=== PATIENT | female | born 1950 | race Caucasian/White ===

== ENCOUNTER 2019-06-04 01:09 | Day surgery (SDC) | payer MEDICARE, MEDICAID, SELFPAY ==
[2019-05-30 12:42] VITALS: BMI 43.5
[2019-06-04 10:15] VITALS: BP 144/70; PULSE 67; RESP 20; TEMP 36.6; O2SAT 100
--- NOTE | 2019-06-04 10:22 | P.HP_ITS ---
History of Present Illness History of Present Illness Consent: Risks, benefits, and alternatives have been discussed and questions answered. Patient agrees to proceed with procedure. Chief complaint: Gastroparesis Narrative: Kelley Rodriguez is a 69 year old female with suffering from early satiety and epigastric pain for the past several months. She also has been nauseated with frequent episodes of vomiting. She be given a prescription for Reglan on an emergency room visit a month or 2 ago and this seemed to help her. A gastric emptying scan was done 2 days ago and was slightly abnormal. She has not lost weight. She also suffers from left upper quadrant pain and was found on hospitalization over the weekend to have a splenic infarct [facility] Family History Family History Sibling Family history of alcoholism Social History Social History Smoking status: Never smoker Second hand tobacco smoke exposure: No Alcohol intake: never Meds Home Medications and Allergies Home Medications Medication Instructions Recorded Confirmed Type B complex-vitamin C-folic acid 0.8 mg PO DAILY 05/30/19 05/30/19 History [Gemini-Maryam] allopurinol [Zyloprim] 100 mg PO DAILY 05/30/19 05/30/19 History amlodipine [Norvasc] 10 mg PO DAILY 05/30/19 05/30/19 History bupropion HCl [Wellbutrin SR] 150 mg PO DAILY 05/30/19 05/30/19 History calcium acetate(phosphat bind) 667 mg PO TID 05/30/19 05/30/19 History carvedilol [Coreg] 25 mg PO DAILY 05/30/19 05/30/19 History cholecalciferol (vitamin D3) 5,000 unit PO BID 05/30/19 05/30/19 History [Vitamin D3] ergocalciferol (vitamin D2) 1,250 unit PO DAILY 05/30/19 05/30/19 History [Vitamin D2] furosemide 80 mg PO DAILY 05/30/19 05/30/19 History gabapentin 100 mg PO BID 05/30/19 05/30/19 History insulin degludec [Tresiba 600 unit SUBCUT DAILY 05/30/19 05/30/19 History FlexTouch U-200] insulin lispro [Humalog U-100 0 sliding scale dose SUBCUT TID 05/30/19 05/30/19 History Insulin] losartan [Cozaar] 100 mg PO 3XW 05/30/19 05/30/19 History mirtazapine [Remeron] 15 mg PO HS 05/30/19 05/30/19 History ondansetron HCl [Zofran] 4 mg PO PRN PRN 05/30/19 05/30/19 History Allergies Allergy/AdvReac Type Severity Reaction Status Date / Time No Known Allergies Allergy Mild Verified 06/04/19 10:33 Vital Signs Vital Signs - 24 hr 06/04/19 10:15 Temperature 36.6 C Pulse Rate 67 Respiratory Rate 20 Blood Pressure 144/70 H Pulse Oximetry 100 Exam Const: General: alert Orientation/consciousness: patient oriented x3 Resp: Auscultation: clear to auscultation bilaterally Cardio: Rhythm: regular rhythm GI: GI Palp: Yes Soft to palpation and No Tenderness to palpation present (GI) Neuro: General: patient oriented x3 Assessment and Plan Assessment and plan (1) Epigastric pain: Code(s): R10.13 - Epigastric pain Status: Acute Assessment and Plan: EGD with possible biopsy or dilatation or cautery.
[2019-06-04 10:33] VITALS: BMI 48.7
--- NOTE | 2019-06-04 10:34 | WPDANESEPPF ---
Anes - Initial Pre Proc Eval Procedure: Operation Date: 06/04/19 10:30 Proposed Procedures p Esophagogastroduodenoscopy - Lito Jimenez MD Date/Time: 06/04/19 10:34 Surgeon: Lito Jimenez MD Pre Op Diagnosis: Gastroparesis Patient Data Age: 69 Gender: F Height: 5 ft 1 in Weight: 104.5 kg Last Vital Signs Temp 97.8 F 06/04/19 10:15 Pulse 67 06/04/19 10:15 Resp 20 06/04/19 10:15 BP 144/70 H 06/04/19 10:15 Pulse Ox 100 06/04/19 10:15 Allergies Allergy/AdvReac Type Severity Reaction Status Date / Time No Known Allergies Allergy Mild Verified 06/04/19 10:33 Home Medications Medication Instructions Recorded Confirmed Type B complex-vitamin C-folic acid 0.8 mg PO DAILY 05/30/19 05/30/19 History [Gemini-Maryam] allopurinol [Zyloprim] 100 mg PO DAILY 05/30/19 05/30/19 History amlodipine [Norvasc] 10 mg PO DAILY 05/30/19 05/30/19 History bupropion HCl [Wellbutrin SR] 150 mg PO DAILY 05/30/19 05/30/19 History calcium acetate(phosphat bind) 667 mg PO TID 05/30/19 05/30/19 History carvedilol [Coreg] 25 mg PO DAILY 05/30/19 05/30/19 History cholecalciferol (vitamin D3) 5,000 unit PO BID 05/30/19 05/30/19 History [Vitamin D3] ergocalciferol (vitamin D2) 1,250 unit PO DAILY 05/30/19 05/30/19 History [Vitamin D2] furosemide 80 mg PO DAILY 05/30/19 05/30/19 History gabapentin 100 mg PO BID 05/30/19 05/30/19 History insulin degludec [Tresiba 600 unit SUBCUT DAILY 05/30/19 05/30/19 History FlexTouch U-200] insulin lispro [Humalog U-100 0 sliding scale dose SUBCUT TID 05/30/19 05/30/19 History Insulin] losartan [Cozaar] 100 mg PO 3XW 05/30/19 05/30/19 History mirtazapine [Remeron] 15 mg PO HS 05/30/19 05/30/19 History ondansetron HCl [Zofran] 4 mg PO PRN PRN 05/30/19 05/30/19 History Patient hx anesthesia problems: none Family hx anesthesia problems: none [facility] Past Medical History Medical History (Updated 06/04/19 @ 10:40 by Berto Giraldo MD) CVA (cerebral vascular accident) Diabetes End stage renal disease on hemo and peritoneal dialysis GERD (gastroesophageal reflux disease) Hyperlipidemia Hypertension Morbid obesity Peripheral neuropathy Family History Family History Sibling Family history of alcoholism Social History Social History Smoking status: Never smoker Second hand tobacco smoke exposure: No Alcohol intake: never Anes - Eval Final PreProcedure Day of Procedure 06/04/19 10:34 Patient weight: morbidly obese Heart: regular rate and rhythm Lungs: clear to auscultation Airway: Mallampati scale class III Neurological: alert and oriented Last oral intake: >/= 8 hours ASA classification: IV Emergent: no Anesthetic plan: proceed Anesthesia type and monitoring: general GIVS and standard monitoring Informed Consent: The patient's anesthetic plan and its attendant risks and benefits were discussed with the patient/family/POA. Questions were solicited and answers provided to the satisfaction of the patient/family/POA.
[2019-06-04] MEDS: SODIUM CHLORIDE 0.9% IV 500 ML 10 ML IV CONT (10:42)
[2019-06-04 10:46] LABS: Glucose Point of Care 166 (65-105)
[2019-06-04 10:57] VITALS: BP 115/39; PULSE 62; RESP 24; O2SAT 94
[2019-06-04 11:07] VITALS: BP 139/57; PULSE 64; RESP 15; O2SAT 100
[2019-06-04 11:17] VITALS: BP 139/57; PULSE 67; RESP 17; O2SAT 95
== END 2019-06-04 11:35 | disposition home or self-care (01) ==
PROVIDERS: PCP Internal Medicine; Visit Provider Internal Medicine Gastroenterology
PROC: 0DJ08ZZ Inspection of Upper Intestinal Tract, Via Natural or Artificial Opening Endoscopic (ICD-10-PCS; CPT 43235; principal; 2019-06-04 10:30)
DX: K21.9 Gastro-esophageal reflux disease without esophagitis (principal); K29.70 Gastritis, unspecified, without bleeding; R11.2 Nausea with vomiting, unspecified; R68.81 Early satiety; I13.11 Hypertensive heart and chronic kidney disease without heart failure, with stage 5 chronic kidney disease, or end stage renal disease; E78.5 Hyperlipidemia, unspecified; N18.6 End stage renal disease; E11.22 Type 2 diabetes mellitus with diabetic chronic kidney disease; E11.40 Type 2 diabetes mellitus with diabetic neuropathy, unspecified; Z86.73 Personal history of transient ischemic attack (TIA), and cerebral infarction without residual deficits; Z79.4 Long term (current) use of insulin; Z99.2 Dependence on renal dialysis; E66.01 Morbid (severe) obesity due to excess calories; Z68.42 Body mass index [BMI] 45.0-49.9, adult
CPT/HCPCS: 43239; 87081; J2704; J7040

== ENCOUNTER 2019-07-04 14:01 | Inpatient (IN) | payer MEDICARE, BC, SELFPAY ==
--- NOTE | ~2019-07-04 | XR_ITS ---
XR chest 1V portable 07/04/2019 15:10 Indication: Fever, abdominal pain and nausea Procedure: AP view of the chest Comparison: No prior studies for comparison. Findings: Cardiomegaly. No focal air space disease, pulmonary edema, pleural effusion or suspected pn eumothorax. No acute osseous abnormality. Impression: 1: No acute cardiopulmonary disease. Reviewed, dictated and finalized at location A. Impression: 1: No acute cardiopulmonary disease.
--- NOTE | ~2019-07-04 | CT_ITS ---
EXAMINATION: CT abdomen pelvis w con EXAM DATE: 07/05/2019 08:40 INDICATION: No mass is seen on noncontrast study. TECHNIQUE: Spiral CT of the abdomen and pelvis was performed following intravenous injection of 100 m L Omnipaque 350. Axial, coronal and sagittal images were reviewed. The dose-length product (DLP) fo r this examination was 1558.28 mGy-cm. The exposure was tailored according to patient size (auto mA exposure control), and iterative reconstruction (ASIR) was used as additional dose reduction techniqu e. Comparison is made to prior examination from 07/04/2019. FINDINGS: Small to moderate amount of free peritoneal fluid, with small foci of gas most likely perit wall dialysis related, catheter is identified. There are regions of linear and wedge-shaped low-dens ity within the spleen, most likely splenic infarctions. No history of trauma was provided to suggest lacerations, and only no fluid identified around the spleen. There are similar-appearing peripheral s mall low density regions within the liver which could also be infarctions given the splenic findings (these do not appear particularly masslike, somewhat geographic linear in shape). Adrenal glands, pancreas are unremarkable. Celiac, superior mesenteric, renal arteries enhance as exp ected, and no splenic or portal venous thrombosis identified. Gallbladder is unremarkable. No biliar y obstruction. Portal and splenic veins are patent. Kidneys enhance symmetrically. There is no hyd ronephrosis. The uterus is not identified and has likely been surgically resected. The bladder is unremarkable. There is no retroperitoneal or pelvic lymphadenopathy. The appendix is normal. The stomach and small bowel are unremarkable. There is expected amount of c olonic stool. No free intraperitoneal gas. There is cardiomegaly and there is linear bibasilar airspace disease consistent with atelectasis. There are no osteoblastic or osteolytic lesions identi fied. IMPRESSION: 1. Linear and geographic shaped scattered liver and splenic hypodense regions, appearance consistent with acute or subacute infarctions. No thrombus identified within the visualized enhanced vessels. 2. Peritoneal fluid and air likely from dialysis. 3. Linear by basilar atelectasis. 4. Cardiomegaly. Reviewed, dictated and finalized at location A. IMPRESSION: 1. Linear and geographic shaped scattered liver and splenic hypodense regions, appearance consistent with acute or subacute infarctions. No thrombus identifi ed within the visualized enhanced vessels. 2. Peritoneal fluid and air likely from dialysis. 3. Linear by basilar atelectasis. 4. Cardiomegaly.
--- NOTE | ~2019-07-04 | CT_ITS ---
EXAMINATION: CT abdomen pelvis wo con DATE: 07/04/2019 15:01 INDICATION: Severe abdominal pain. TECHNIQUE: Computed tomography (CT) of the abdomen and pelvis was performed without intravenous contr ast. The dose-length product was 1628.56 mGy-cm. Automated exposure control and iterative reconstruct ion technique were employed. COMPARISON: None. FINDINGS: There are groundglass opacities in the lung bases. Cardiomegaly. No significant pleural or pericardial effusion. There is free fluid in the abdomen and pelvis there is a catheter extending int o the pelvis, likely peritoneal dialysis catheter. There is free air, likely secondary to the cathete r. Punctate focus of gas in the bladder lumen, likely from recent instrumentation. Colonic diverticul osis without evidence for diverticulitis. There is extensive arterial sclerosis. There are multiple hypodense masses of the liver, largest in the right hepatic lobe measuring 4.6 x 1 .7 cm greatest axial dimension. The spleen, pancreas, adrenal glands and kidneys are unremarkable. No bowel obstruction. No loculated fluid collection to suggest abscess. Moderate-severe lumbar spondylo sis. IMPRESSION: 1. Free intraperitoneal air is noted, likely secondary to peritoneal dialysis catheter. Bowel perfora tion cannot entirely excluded, although no focal bowel abnormalities are identified. Free fluid noted in the abdomen and pelvis, likely related to peritoneal dialysis. 2: Multiple liver masses. Recommend correlation with contrast-enhanced CT or MRI to exclude enhancing masses. Consider metastatic disease. Infection is another consideration. Reviewed, dictated and finalized at location A. IMPRESSION: 1. Free intraperitoneal air is noted, likely secondary to peritoneal dialysis c atheter. Bowel perforation cannot entirely excluded, although no focal bowel ab normalities are identified. Free fluid noted in the abdomen and pelvis, likely related to peritoneal dialysis. 2: Multiple liver masses. Recommend correlation with contrast-enhanced CT or MR I to exclude enhancing masses. Consider metastatic disease. Infection is anothe r consideration.
[2019-07-04 14:03] VITALS: BP 104/39; PULSE 83; RESP 22; TEMP 38.7; O2SAT 96
--- NOTE | 2019-07-04 14:26 | ED.ABDPAIN ---
HPI - Abdominal Pain General Chief Complaint: Abdominal Pain Stated Complaint: ABD PAIN Time Seen by Provider: 07/04/19 14:10 History of Present Illness HPI narrative: Patient presents to the ER today for right-sided lower abdominal pain. This started a couple days ago, and is not the same as when she had the colitis a couple weeks ago. The fever just started today. She has no vomiting nausea or diarrhea. She has no cough. She does peritoneal dialysis every day all day. Her supervisor estimator and drafter is Dr. Mosley. The pain radiates up to the waistline and a little bit over to the middle. The pain is a 5 or 6 on a scale of 1-10. It hurts worse with palpitation. She also complains of having a urinary tract infection. She says she knows this because of the odor of her urine. She denies frequency or burning with urination. Her lower legs are red but nontender. She says that they are always like that and swollen. She does not suspect that they are infected. She has been following COVID precautions and has not left her house in weeks. She has no problem with memory or mobility. MD elicited complaint: abdominal pain Pertinent past history: other (recent colitis, and was sent home on flagyl and levoquin. She finished the entire course.) Onset (ago): day(s) Pain Consistency: constant Location: RLQ Severity: moderate Quality: aching Radiation: suprapubic and R flank Exacerbating factors: movement Relieving factors: nothing Context: confirms recent antibiotic use Associated symptoms: denies other symptoms and fever Related Data Patient : No Home Medications Medication Instructions Recorded Confirmed Gemini-Maryam 0.8 mg PO DAILY 05/30/19 05/30/19 Tresiba FlexTouch U-200 600 unit SUBCUT DAILY 05/30/19 05/30/19 allopurinol [Zyloprim] 100 mg PO DAILY 05/30/19 05/30/19 amlodipine [Norvasc] 10 mg PO DAILY 05/30/19 05/30/19 bupropion HCl [Wellbutrin SR] 150 mg PO DAILY 05/30/19 05/30/19 calcium acetate(phosphat bind) 667 mg PO TID 05/30/19 05/30/19 carvedilol [Coreg] 25 mg PO DAILY 05/30/19 06/04/19 cholecalciferol (vitamin D3) 5,000 unit PO BID 05/30/19 05/30/19 [Vitamin D3] ergocalciferol (vitamin D2) 1,250 unit PO DAILY 05/30/19 05/30/19 [Vitamin D2] furosemide 80 mg PO DAILY 05/30/19 05/30/19 gabapentin 100 mg PO BID 05/30/19 05/30/19 insulin lispro [Humalog U-100 0 sliding scale dose SUBCUT TID 05/30/19 05/30/19 Insulin] losartan [Cozaar] 100 mg PO 3XW 05/30/19 05/30/19 mirtazapine [Remeron] 15 mg PO HS 05/30/19 05/30/19 ondansetron HCl [Zofran] 4 mg PO PRN PRN 05/30/19 05/30/19 Allergies Allergy/AdvReac Type Severity Reaction Status Date / Time No Known Allergies Allergy Mild Verified 07/04/19 14:11 Review of Systems Review of Systems: All systems reviewed & are unremarkable except as noted in HPI and below Constitutional: Constitutional: Denies fatigue, Reports fever(s) and Denies weakness ENT: Reports system reviewed and no additional complaints, except as documented Cardiovascular: Cardiovascular: Reports no additional cardiovascular complaints Respiratory: Respiratory: Reports no additional respiratory complaints, Denies cough and Denies dyspnea Gastrointestinal: Gastrointestinal: Reports abdominal pain, Denies diarrhea, Denies nausea and Denies vomiting Genitourinary: Genitourinary: Denies nocturia and Denies dysuria Comments: She reports a foul odor to her urine which usually indicates a UTI for her. Musculoskeletal: Comments: She recently had a reaction to her medication in which her legs were so weak that she could barely move them to get up and had to call an ambulance to come to the ER I suspect that that medicine was her Remeron. Integumentary/Breasts: Skin/Breast: Reports system reviewed and no additional complaints, except as docu Neurologic: Reports system reviewed and no additional complaints, except as documented Endocrine: Endocrine: Denies polyuria PMFSH Past Medical History Medical History (Updated
[2019-07-04] MEDS: ACETAMINOPHEN 325 MG TABLET 650 MG PO (14:30)
[2019-07-04] MEDS: MORPHINE SULFATE 4 MG/ML INJ IV PUSH (14:30)
[2019-07-04] MEDS: SODIUM CHLORIDE 0.9% IV 1,000 ML 150 ML IV CONT (14:31)
[2019-07-04 14:53] LABS: Basophils Absolute Auto 0.1 K/mm3 (0.0-0.1); Basophils Percent Auto 0.3 % (0.2-1.2); Eosinophils Absolute Auto 0.1 K/mm3 (0-0.3); Eosinophils Percent Auto 0.4 % (0-4.4); Hematocrit 35.4 % (37.0-47.0); Hemoglobin 11.1 g/dL (12.0-15.0); Immature Granulocyte Absolute 0.15 K/mm3 (0.00-0.031); Immature Granulocyte Percent A 0.7 % (0-0.5); Lymphocytes Absolute Auto 1.06 K/mm3 (0.9-3.2); Mean Corpuscular HGB Conc 31.4 g/dl (32-36); Mean Corpuscular Hemoglobin 32.4 pg (26-34); Mean Corpuscular Volume 103.2 fl (80-100); Mean Platelet Volume 10.9 fl (7.4-10.4); Monocytes Absolute Auto 0.8 K/mm3 (0.1-0.6); Monocytes Percent Auto 3.7 % (2.6-8.5); Neutrophils Absolute Auto 19.1 K/mm3 (1.3-6.7); Neutrophils Percent Auto 89.9 % (45.5-73.1); Platelet Count Result 338 k/mm3 (150-375); Red Blood Count 3.43 M/mm3 (4.2-5.4); Red Cell Distribution Width 14.3 % (11.5-14.5); White Blood Count 21.2 K/mm3 (4.5-10.0)
[2019-07-04 15:03] LABS: Prothrombin Time 12.5 Seconds (11.1-14.7)
[2019-07-04 15:04] LABS: Platelet Estimate Adequate (Adequate); Stomatocytes 1+ (NORMAL)
[2019-07-04 15:06] LABS: Alanine Aminotransferase 22 U/L (4-35); Albumin Level 3.3 g/dL (3.5-5.1); Alkaline Phosphatase 129 U/L (38-126); Aspartate Amino Transferase 25 U/L (14-36); Bilirubin,Total 0.5 mg/dL (0.2-1.3); Blood Urea Nitrogen 23 mg/dL (7-17); Calcium 8.9 mg/dL (8.4-10.2); Carbon Dioxide 28 mmol/L (22-30); Chloride 97 mmol/L (98-107); Estimated CRCL calculation 16 ml/min; Estimated Glomerular Filt Rate 11; Glucose 217 mg/dL (65-105); Lipase 323 U/L (23-300); Potassium 4.7 mmol/L (3.4-5.0); Sodium 130 mmol/L (137-145)
[2019-07-04 15:27] LABS: Add Urine Microscopic? YES; Appearance Urine Clear (Clear); Bilirubin Urine Negative (Negative); Blood Urine Negative (Negative); Color Urine Yellow (Yellow); Glucose Urine UA 3+ mg/dL (Negative); Ketones Urine Negative (Negative); Leukocyte Esterase Ur Negative LEU/UL (Negative); Mucus Urine Rare /lpf; Nitrate Urine Negative (Negative); Protein Urine 3+ mg/dL (Negative); RBC Urine 0-2 /hpf (0-2); Specific Grav Ur 1.021 (1.001-1.035); Squamous Epithelial Cell Urine Few /hpf (Few); Urobilinogen Urine Negative mg/dL (<2.0); WBC Urine 0-3 /hpf
[2019-07-04 16:00] VITALS: BP 149/64; PULSE 89; RESP 22; O2SAT 93
[2019-07-04 17:20] VITALS: BP 149/64; PULSE 80; RESP 20; O2SAT 95
[2019-07-04 17:43] VITALS: BMI 49.6
--- NOTE | 2019-07-04 17:49 | ADMGEN ---
This patient, Kelley Rodriguez, was admitted to [facility] Surg Room 325-01. Patient/family oriented to hospital policies and general routines including ID bracelet, bed and alarms, visiting hours, pain management, procedures, bathroom and other care routines, personal items, smoking policy, room service/diet, and visiting hours. Valuables list has been completed. Information on how to activate the Rapid Response Team has been discussed. Patient/Family are encouraged to report perceived risks to care and to ask questions if they do not understand what they are told or what they should do.
[2019-07-04 19:11] VITALS: BP 129/51; PULSE 70; RESP 18; TEMP 36.7; O2SAT 96
[2019-07-04 20:00] VITALS: BP 129/51; PULSE 70; RESP 18; TEMP 36.6
[2019-07-04 20:56] LABS: Immature Reticulocyte Fraction 25.9 % (3.0-15.9); Reticulocyte Hemoglobin Conten 37.1 pg (28.2-35.7); Reticulocyte Percent 3.16 % (0.7-4.3); Reticulocytes Absolute 0.09 B/L (32.2-175.7)
[2019-07-04 21:04] LABS: Lactate Dehydrogenase 463 U/L (313-618)
[2019-07-04 21:08] LABS: CRP 7.3 mg/dL (<1.0)
[2019-07-04 21:11] LABS: Hemoglobin A1C 8.6 % (<5.7)
[2019-07-04 21:23] LABS: Erythrocyte Sedimentation Rate 98 mm/hr (0-20)
[2019-07-04 21:28] LABS: Iron 40 ug/dL (37-170)
[2019-07-04 21:37] LABS: Percent Iron Saturation 24 % (20-50)
[2019-07-04 21:41] LABS: Transferrin 107 mg/dL (206-381)
[2019-07-04 22:00] VITALS: BP 152/62; PULSE 76; RESP 20; TEMP 36.7; O2SAT 92
[2019-07-04 22:16] LABS: Folic Acid > 20.0 ng/mL (2.76->20)
[2019-07-05] VITALS (22 sets, daily range): BP systolic 127–203; BP diastolic 53–96; PULSE 55–96; RESP 16–20; TEMP 36–37.1; O2SAT 91–96
--- NOTE | 2019-07-05 05:50 | PM.IMHP ---
H&P: HPI History of Present Illness Chief complaint: abdominal pain Narrative: Date and time of patient contact: 07/05/2019 at 5:50 a.m. Kelley Rodriguez is a 69 year old female with a past m around her waistline and periumbilical region edical history of insulin-dependent diabetes with multiple complications including nephropathy with end-stage renal disease on peritoneal dialysis who presented to the ER via EMS from home due to abdominal pain. The patient reports that she was admitted to [facility] about a month ago for colitis. At that time her abdominal pain was in the left upper quadrant. She was discharged home on Levaquin and Flagyl. She completed her antibiotic course. She felt better after the antibiotics but a few days later began developing some periumbilical abdominal pain and lower abdominal pain. She thought she was getting a urinary tract infection because she noticed that her urine had an odd odor and a darker coloration. She went to see her communicable disease specialist Dr. Mosley who gave her a course of Keflex. She reports that she may have felt a little bit better after the course of Keflex. However over the last couple of days her abdominal pain has worsened. On the the patient was checking her temperature and had temperature as high as 100.7? at home and her T-max on arrival to the ER was 101.6. She reports that she is chronically chilled and had not felt feverish. She reports that her peritoneal dialysis fluid is usually cloudy at the beginning of her treatments but throughout the day her fluid clears. The patient reports that the pain is a 6/10 in intensity but will occasionally spike to an 8 or 9/10 in intensity. Her pain is worse with palpation of the abdomen. She does have intermittent nausea but has a history of diabetic gastroparesis. She has only had 1 episode of vomiting about 5 days ago and she feels it was related to her gastroparesis. She reports that her last bowel movement was yesterday and was normally formed without hematochezia or melena. She had an EGD and colonoscopy performed by Dr. Jimenez in May that demonstrated gastritis. She has been having some mild epigastric discomfort but this is unchanged from her baseline. The patient thought she had a UTI due to darker urine and cloudy urine. She has not been having any dysuria. Her UA performed in the ER was relatively unremarkable. She denies any chest pain or shortness of breath. She reports that she may have had a small heart attack when her 1st son but she has never had a cardiac catheterization or been diagnosed with CHF or coronary artery disease. She denies any history of liver disease or fatty liver. She has a markedly carotid the oral pharynx but reports that she had a sleep study approximately 3 years ago that was negative for sleep apnea. She reports chronic lower extremity swelling that is unchanged from baseline. She does have legal blindness due to diabetic retinopathy. She has also had tubes placed in her eyes to treat glaucoma. She has chronic lower extremity swelling that is unchanged from baseline. She does have diabetic neuropathy but denies a history of diabetic foot wounds. She has chronic left arm pain due to a humerus fracture several years ago. She denies any recent ill contacts. She has been staying at home and has not been out in the community. Unfortunately the source of most of this information is from patient report. Patient has received the majority of her medical care at [facility]. She states that she will not make this mistake a going back to [place] as she has been treated like a [place] since she arrived at our facility. Records request has been sent to [facility] but we have not yet received said records. Review of Systems Review of Systems: Narrative: 12 systems were reviewed with pertinent positives and negatives per HPI. Except as documented in the HPI, all other systems were reviewed and are neg
[2019-07-05 06:04] LABS: Basophils Percent Auto 0.3 % (0.2-1.2); Eosinophils Absolute Auto 0.4 K/mm3 (0-0.3); Eosinophils Percent Auto 2.8 % (0-4.4); Hematocrit 29.8 % (37.0-47.0); Hemoglobin 9.5 g/dL (12.0-15.0); Immature Granulocyte Absolute 0.07 K/mm3 (0.00-0.031); Immature Granulocyte Percent A 0.6 % (0-0.5); Lymphocytes Absolute Auto 1.66 K/mm3 (0.9-3.2); Lymphocytes Percent Auto 13.3 % (18.3-44.2); Mean Corpuscular HGB Conc 31.9 g/dl (32-36); Mean Corpuscular Hemoglobin 32.6 pg (26-34); Mean Corpuscular Volume 102.4 fl (80-100); Mean Platelet Volume 10.5 fl (7.4-10.4); Monocytes Absolute Auto 0.8 K/mm3 (0.1-0.6); Monocytes Percent Auto 6.6 % (2.6-8.5); Neutrophils Absolute Auto 9.6 K/mm3 (1.3-6.7); Neutrophils Percent Auto 76.4 % (45.5-73.1); Platelet Count Result 291 k/mm3 (150-375); Red Blood Count 2.91 M/mm3 (4.2-5.4); Red Cell Distribution Width 14.4 % (11.5-14.5); White Blood Count 12.5 K/mm3 (4.5-10.0)
[2019-07-05 06:20] LABS: Blood Urea Nitrogen 22 mg/dL (7-17); Calcium 8.3 mg/dL (8.4-10.2); Carbon Dioxide 26 mmol/L (22-30); Chloride 98 mmol/L (98-107); Estimated CRCL calculation 17 ml/min; Estimated Glomerular Filt Rate 13; Glucose 278 mg/dL (65-105); Sodium 129 mmol/L (137-145)
[2019-07-05 09:48] LABS: Appearance Peritoneal Fluid Clear (Clear); Color Peritoneal Fluid Colorless (Colorless); Source Peritoneal Fluid Peritoneal Fluid
[2019-07-05 09:49] LABS: Nucleated Cells Peritoneal Flu 4187 /uL (0-500); RBC Peritoneal Fluid 0 /uL (0-100000)
[2019-07-05 09:50] LABS: Lymphocytes Peritoneal Fluid 7 %; Mesothelial Cells Peritoneal Fluid 3 %; Neutrophils Peritoneal Fluid 90 % (0-25)
--- NOTE | 2019-07-05 11:48 | PM.PNNEP ---
Progress Note: A&P Assessment and Plan (1) End-stage renal disease (ESRD): Code(s): N18.6 - End stage renal disease Status: Acute (2) Fever: Qualifiers: Fever type: unspecified Qualified Code(s): R50.9 - Fever, unspecified Code(s): R50.9 - Fever, unspecified Status: Acute (3) Hyponatremia: Code(s): E87.1 - Hypo-osmolality and hyponatremia Status: Acute (4) Liver masses: Code(s): R16.0 - Hepatomegaly, not elsewhere classified Status: Acute (5) Diabetes: Code(s): E11.9 - Type 2 diabetes mellitus without complications Status: Acute Assessment and Plan: . Additional Plan HD today (to promote dye/contrast removal from CT scan this AM) Resume CCPD tomorrow night and HD on Mondays and Fridays FULL CONSULT TO FOLLOW Subjective Date/time seen: 07/05/19 11:48 Tolerating dialysis at the time of my visit (seen on HD at 11:30AM); no apparent distress voiced at this time; CT scan with contrast done this AM for further evaluation of liver lesions. Tolerated peritoneal dialysis overnight without any major problems. Exam Narrative: Exam Narrative: General: WD/WN male in NAD Heart: normal S1 and S2; no rub Lungs: clear to auscultation Abdomen: soft, mild TTP, nondistended, positive bowel sounds Extremities: no cyanosis or clubbing; chronic edematous changes Skin: chronic venous stasis changes Objective Data Vital Signs Vital Signs: Vital Signs Temp Pulse Resp BP Pulse Ox 07/05/19 11:49 87 190/60 H 07/05/19 11:30 96 161/82 H 07/05/19 11:15 81 171/92 H 07/05/19 11:00 75 127/74 07/05/19 10:45 78 200/92 H 07/05/19 10:30 73 179/88 H 07/05/19 10:15 76 195/85 H 07/05/19 10:00 76 195/85 H 07/05/19 09:45 76 195/85 H 07/05/19 09:25 86 203/95 H 07/05/19 09:15 36.6 C 84 16 194/85 H 07/05/19 08:34 36.3 C L 55 L 20 185/60 H 07/05/19 06:00 36.3 C L 78 20 185/60 H 91 07/04/19 22:00 36.7 C 76 20 152/62 H 92 07/04/19 20:00 36.6 C 70 18 129/51 L 07/04/19 19:11 36.7 C 70 18 129/51 L 96 07/04/19 17:20 80 20 149/64 H 95 07/04/19 16:00 89 22 H 149/64 H 93 07/04/19 14:03 38.7 C H 83 22 H 104/39 L 96 Intake/Output Intake/Output: Intake & Output 07/02/19 07/03/19 07/04/19 07/05/19 23:59 23:59 23:59 23:59 Intake Total 1280 550 Output Total 100 -191 Balance 1180 741 Meds/Results Medications: Active Medications Generic Name Dose Route Start Last Admin Trade Name Freq PRN Reason Stop Dose Admin Allopurinol 100 mg 07/05/19 08:00 Zyloprim PO DAILY@0800 [facility] Bupropion HCl 150 mg 07/05/19 09:00 Wellbutrin-Sr (12 Hr) PO DAILY [facility] Calcium Acetate 667 mg 07/05/19 09:00 Phoslo PO BID [facility] Carvedilol 25 mg 07/05/19 09:00 Coreg PO Q12HR [facility] Dextrose 12.5 gm 07/05/19 01:08 Dextrose 50% Syringe IV PUSH PRN PRN Hypoglycemia Protocol Ergocalciferol 1,250 unit 07/05/19 09:00 Drisdol PO DAILY [facility] Glucagon 1 mg 07/05/19 01:08 Glucagon For Inj IM PRN PRN Hypoglycemia Protocol Glucose 15 gm 07/05/19 01:08 Glutose 15 PO PRN PRN Hypoglycemia Protocol Piperacillin Sod/Tazobactam Sod 2.25 gm in 50 mls @ 100 mls/hr 07/04/19 22:00 07/05/19 06:14 Zosyn 2.25 Gm/D5w 50 Ml IVPB Infused Q8HR [facility] Infusion Dextrose 1,000 mls @ 100 mls/hr 07/05/19 01:08 Dextrose 5% 1,000 Ml IVPB PRN PRN Hypoglycemia Protocol Albumin Human 50 mls @ 999 mls/hr 07/05/19 06:22 Albutein IVPB 08/04/19 06:23 Q10M PRN HYPOTENSION Vancomycin HCl 1,750 mg in 500 mls @ 250 mls/hr 07/05/19 10:30 Vancomycin 1,750 Mg/D5w 500 Ml IVPB Q48HR [facility]LL Insulin Aspart 3 - 6 units 07/05/19 08:00 Novolog SUB-Q TIDWM MICHELL Protocol Insulin Glargine 50 units 07/05/19 21:00 Auroraus
[2019-07-05] MEDS: SODIUM CHLORIDE 0.9% IV 1,000 ML 999 ML IV CONT ×2 (11:52→11:53)
[2019-07-05 12:03] LABS: Glucose Point of Care 194 (65-105)
[2019-07-05] MEDS: CHOLECALCIFEROL 1,000 UNIT TABLET 5000 UNITS PO ×2 (13:22→16:19)
[2019-07-05] MEDS: VITAMIN B CMPLX/VIT C/FOLIC AC 1 CAPSULE 1 CAP PO (13:24)
[2019-07-05] MEDS: carvediloL 25 MG TABLET PO ×2 (13:24→21:33)
[2019-07-05] MEDS: LOSARTAN POTASSIUM 100 MG TABLET PO (13:25)
[2019-07-05] MEDS: CALCIUM ACETATE 667 MG TABLET PO ×2 (13:25→16:18)
[2019-07-05] MEDS: METOCLOPRAMIDE HCL 10 MG TABLET PO (13:25)
[2019-07-05] MEDS: allopurinoL 100 MG TABLET PO (13:25)
[2019-07-05] MEDS: ACETAMINOPHEN 325 MG TABLET 650 MG PO (13:34)
--- NOTE | 2019-07-05 14:35 | PC.NURSE ---
notified that pt is unable to tolerate SCD's at this time, due to her lower legs being red with blistered areas.
--- NOTE | 2019-07-05 15:28 | PM.IMPN ---
Progress Note: A&P Assessment and Plan (1) High peritoneal fluid white blood cell count: Code(s): R85.89 - Other abnormal findings in specimens from digestive organs and abdominal cavity Status: Acute Assessment and Plan: -----patient's peritoneal fluid showed over 4000 nucleated cells and 90% neutrophils which is worrisome for infection. The Gram stain and culture is still pending. Patient has been febrile with leukocytosis and does have pain in the lower quadrants with hazy peritoneal fluid. Will continue with Zosyn and vancomycin. (2) Splenic infarction: Code(s): D73.5 - Infarction of spleen Status: Acute Assessment and Plan: -----noted on CT. I spoke with the radiologist who strongly suspects infarction. Unsure when this infarction happened. She has a history of hypotension about 2 weeks ago in dialysis which could have been the cause. She reports that she got an abdominal MRI from [place] and we are waiting for those results. A blood clot seems less likely since she also has liver infarctions as well and no history or family history of blood clots. Radiology does not think these look like masses or abscesses. She has absolutely no pain in this area (3) Infarction of liver: Code(s): K76.3 - Infarction of liver Status: Acute Assessment and Plan: -----see above. (4) History of colitis: Code(s): Z87.19 - Personal history of other diseases of the digestive system Status: Acute Assessment and Plan: -----await records from [place]. 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 Continue substitute Lantus and SSI. (7) End-stage renal disease on peritoneal dialysis: Code(s): N18.6 - End stage renal disease; Z99.2 - Dependence on renal dialysis Status: Acute Assessment and Plan: -----Usually does peritoneal dialysis but now may have infection. Since she got a contrasted CT she did hemodialysis today. (8) Hyponatremia: Code(s): E87.1 - Hypo-osmolality and hyponatremia Status: Acute Assessment and Plan: -----129 on today's labs. Patient was dialyzed. Will monitor (9) End-stage renal disease (ESRD): Code(s): N18.6 - End stage renal disease Status: Acute Assessment and Plan: -----continue dialysis per Nephrology's recommendations (10) Hypertension: Code(s): I10 - Essential (primary) hypertension Status: Acute Assessment and Plan: -----patient has been hypertensive today but got 4 L off. Her latest blood pressure is 142/56. Continue home medications. Additional Plan Time Spent With Patient Time with patient: 25 - 35 minutes Subjective Date/time seen: 07/05/19 15:28 Interval history: Pt is a 69-year-old female here for abdominal pain found to possible peritonitis and liver/plain infarctions. Patient was seen today and says her lower abdomen hurts occasionally but overall doing better than yesterday. She has been passing gas but no bowel movements. -We reviewed her past medical history but are waiting for records. She said that she was admitted for colitis at [facility] and was discharge June 02 and finished all of her antibiotics (flagyl and Levaquin). She said during this hospitalization the pain was in her left upper quadrant and she had an MRI of the abdomen at that time
[2019-07-05] MEDS: MORPHINE SULFATE 2 MG/ML INJ IV PUSH (16:17)
[2019-07-05 18:22] LABS: Glucose Point of Care 194 (65-105)
[2019-07-05] MEDS: HEPARIN SODIUM 5,000 UNITS/ML VIAL 5000 UNITS SUB-Q (21:33)
[2019-07-05] MEDS: INSULIN GLARGINE (*BKC) 100 UNITS/ML 50 UNITS SUB-Q (21:34)
[2019-07-05 22:09] LABS: Glucose Point of Care 198 (65-105)
[2019-07-06] VITALS (12 sets, daily range): BP systolic 157–197; BP diastolic 61–80; PULSE 10–87; RESP 14–20; TEMP 36.6–37.5; O2SAT 94–96
[2019-07-06 06:24] LABS: Hematocrit 28.4 % (37.0-47.0); Hemoglobin 9.6 g/dL (12.0-15.0); Mean Corpuscular HGB Conc 33.8 g/dl (32-36); Mean Corpuscular Hemoglobin 33.2 pg (26-34); Mean Corpuscular Volume 98.3 fl (80-100); Mean Platelet Volume 11.5 fl (7.4-10.4); Platelet Count Result 200 k/mm3 (150-375); Red Blood Count 2.89 M/mm3 (4.2-5.4); Red Cell Distribution Width 14.3 % (11.5-14.5); White Blood Count 12.6 K/mm3 (4.5-10.0)
[2019-07-06 07:06] LABS: Alanine Aminotransferase 18 U/L (4-35); Albumin Level 2.5 g/dL (3.5-5.1); Alkaline Phosphatase 88 U/L (38-126); Aspartate Amino Transferase 30 U/L (14-36); Bilirubin,Total 0.3 mg/dL (0.2-1.3); Blood Urea Nitrogen 20 mg/dL (7-17); Calcium 8.4 mg/dL (8.4-10.2); Carbon Dioxide 27 mmol/L (22-30); Chloride 99 mmol/L (98-107); Estimated CRCL calculation 19 ml/min; Estimated Glomerular Filt Rate 14; Glucose 169 mg/dL (65-105); Sodium 130 mmol/L (137-145)
[2019-07-06 08:39] LABS: Glucose Point of Care 175 (65-105)
[2019-07-06] MEDS: carvediloL 25 MG TABLET PO ×2 (08:47→21:00)
[2019-07-06] MEDS: allopurinoL 100 MG TABLET PO (08:47)
[2019-07-06] MEDS: VITAMIN B CMPLX/VIT C/FOLIC AC 1 CAPSULE 1 CAP PO (08:48)
[2019-07-06] MEDS: CHOLECALCIFEROL 1,000 UNIT TABLET 5000 UNITS PO ×2 (08:48→17:38)
[2019-07-06] MEDS: HEPARIN SODIUM 5,000 UNITS/ML VIAL 5000 UNITS SUB-Q ×2 (08:48→20:58)
[2019-07-06] MEDS: CALCIUM ACETATE 667 MG TABLET PO ×2 (08:48→17:38)
[2019-07-06] MEDS: METOCLOPRAMIDE HCL 10 MG TABLET PO (08:49)
--- NOTE | 2019-07-06 09:27 | PM.CNNEP ---
Assessment and Plan Assessment and plan (1) End-stage renal disease (ESRD): Code(s): N18.6 - End stage renal disease Status: Acute (2) Liver masses: Code(s): R16.0 - Hepatomegaly, not elsewhere classified Status: Acute (3) Hyponatremia: Code(s): E87.1 - Hypo-osmolality and hyponatremia Status: Acute (4) High peritoneal fluid white blood cell count: Code(s): R85.89 - Other abnormal findings in specimens from digestive organs and abdominal cavity Status: Acute (5) Infarction of liver: Code(s): K76.3 - Infarction of liver Status: Acute (6) Splenic infarction: Code(s): D73.5 - Infarction of spleen Status: Acute (7) Hypertension: Code(s): I10 - Essential (primary) hypertension Status: Acute (8) Diabetes: Code(s): E11.9 - Type 2 diabetes mellitus without complications Status: Acute Assessment and Plan: . Additional Plan Kelley has end-stage renal disease and apparently does both hemodialysis and peritoneal dialysis (CAPD) in effort to maintain stability in her volume status. As already mentioned below, there have been concerns that her compliance with peritoneal dialysis long with hemodialysis is suboptimal resulting in extreme difficulty getting her back to her previous dry weight. I will try to be as aggressive as possible with fluid removal as tolerated by her hemodynamics to get her as close to her dry weight as possible during this hospital stay. The patient's original CT scan in the emergency room demonstrated possible liver masses versus infection but her repeat CT scan with contrast seems to be more consistent with liver infarctions with the presence of infarctions in her spleen as well. The exact etiology of these infarctions is not entirely clear but may be possibly related to previous bouts of hypotension that she stated occurred approximately two weeks ago. More concerning is the fact that she has been having fevers in addition to abdominal pain with a peritoneal dialysis fluid sample highly suggestive of possible peritonitis. She has a significant amount of white blood cells as well as neutrophils although the PD fluid sample was reported as colorless and clear. In any case, her PD fluid cultures as well as blood cultures are pending and she is on broad-spectrum IV antibiotic therapy at this time. I did have a fairly long and lengthy discussion with the patient regarding her somewhat unusual dialysis regiment with regard to both hemodialysis and peritoneal dialysis (CAPD) and I did have a extensive discussion with the nurses as well as the business support administrator at her outpatient dialysis clinic, [facility], regarding this as well (> 20 minutes in total discussion). I will continue follow the patient with you while she remains hospitalized and make further recommendations based on her hospital course. Thank you for allowing me to participate in the care this patient. History of Present Illness Reason for Consult Consult date: 07/06/19 Reason for consult: end stage renal disease Chief Complaint Chief complaint: abdominal pain History of Present Illness Narrative: The patient is a 69 year old female with a past medical history as outlined below who presented to [facility] ER with complaints of abdominal pain. The patient was apparently hospitalized at [facility] about a month ago for colitis. Her abdominal pain at that time was localized to the left upper quadrant. She was discharged home on Levaquin and Flagyl and she completed her antibiotic course. She felt better after the antibiotics but a few days later began developing some periumbilical abdominal pain and lower abdominal pain. She thought she was getting a urinary tract infection because she noticed that her urine had an odd odor and a darker coloration. She went to see her power plant manager who gave her a course of oral ant
[2019-07-06 09:51] LABS: Potassium 4.1 mmol/L (3.4-5.0)
[2019-07-06 12:17] LABS: Glucose Point of Care 190 (65-105)
--- NOTE | 2019-07-06 13:43 | PM.IMPN ---
Progress Note: A&P Assessment and Plan (1) High peritoneal fluid white blood cell count: Code(s): R85.89 - Other abnormal findings in specimens from digestive organs and abdominal cavity Status: Acute Assessment and Plan: -----patient's peritoneal fluid showed over 4000 nucleated cells and 90% neutrophils which is worrisome for infection. The Gram stain shows white blood cells but no bacteria. Sometimes this has a low yield and growing bacteria. Will continue treatment. Patient had a fever once on admission but none since. Leukocytosis has improved. Will continue with Zosyn and vancomycin. (2) Splenic infarction: Code(s): D73.5 - Infarction of spleen Status: Acute Assessment and Plan: -----noted on CT. I spoke with the radiologist who strongly suspects infarction. Unsure when this infarction happened. She has a history of hypotension about 2 weeks ago in dialysis which could have been the cause. She reports that she got an abdominal MRI from [place] and we are waiting for those results. A blood clot seems less likely since she also has liver infarctions as well and no history or family history of blood clots. Radiology does not think these look like masses or abscesses. She has absolutely no pain in this area -We reviewed her past medical history but are waiting for records. She said that she was admitted for colitis at [facility] and was discharge June 02 and finished all of her antibiotics (flagyl and Levaquin). She said during this hospitalization the pain was in her left upper quadrant and she had an MRI of the abdomen at that time. They did not suspect IBD at that time and thought it was infectious. She did have a colonoscopy before this, in and had 6-8 polyps removed. - She said that she was taken off lasix 2 weeks ago because she was having hypotension in the 70s systolic during dialysis. Since stopping the lasix, she has been around 150 systolic and she checks this at home. - She has no hx of blood clots, cancer, or afib. - She started having foul smelling urine on and did not get a UA but was given keflex and took one dose before coming in. - She has noticed that her peritoneal fluid has been more cloudy than normal. Her abdominal pain, that brought her in, is consistently in the lower 2 quadrants and not in the upper quadrants. This is accompanied by fever. (3) Infarction of liver: Code(s): K76.3 - Infarction of liver Status: Acute Assessment and Plan: -----see above. (4) History of colitis: Code(s): Z87.19 - Personal history of other diseases of the digestive system Status: Acute Assessment and Plan: -----await records from [facility]. 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 Continue substitute Lantus and SSI. (7) End-stage renal disease on peritoneal dialysis: Code(s): N18.6 - End stage renal disease; Z99.2 - Dependence on renal dialysis Status: Acute Assessment and Plan: -----Usually does peritoneal dialysis but now may have infection. Since she got a contrasted CT she did hemodialysis today. (8) Hyponatremia: Code(s): E87.1 - Hypo-osmolality and hyponatremia Status: Acute Assessment and Plan: -----130 on today's labs. Patient was dialyzed. Will monitor (9) End-stage renal disease (ESRD):
--- NOTE | 2019-07-06 14:12 | P.PNNP_ITS ---
Progress Note: A&P Assessment and Plan (1) End-stage renal disease (ESRD): Code(s): N18.6 - End stage renal disease Status: Chronic Assessment and Plan: * does BOTH peritoneal and hemodialysis * does HD on Sunday and Fridays and CAPD on (///Sun/ - apparently, this treatment regimen has been ongoing since January 2019 - this was a temporary measure instituted to get her back to dry weight (112kg) * plan PD tonight (cannot do CAPD while hospitalized) subsequently HD tomorrow * follow electrolytes, volume status, and clearacne (2) High peritoneal fluid white blood cell count: Code(s): R85.89 - Other abnormal findings in specimens from digestive organs and abdominal cavity Status: Acute Assessment and Plan: * PD fluid analysis highly suggestive of peritonitis - patient states first CAPD exchange at home is always cloudy but clears over the course of the day * blood/PD fluid cultures pending; gram stain negative * on IV antibiotics * elevated WBC on admission but better (3) Hyponatremia: Code(s): E87.1 - Hypo-osmolality and hyponatremia Status: Acute Assessment and Plan: * related to renal failure and propensity for fluid retention * fluid removal with PD and HD as tolerated * follow trend (4) Infarction of liver: Code(s): K76.3 - Infarction of liver Status: Acute Assessment and Plan: * confirmed by repeat imaging * etiology??? * possible explanation of PD fluid analysis? (5) Hypertension: Code(s): I10 - Essential (primary) hypertension Status: Chronic Assessment and Plan: * continue home BP medications * aggressive ultrafiltration should help * follow trend of hemodynamics (6) Diabetes: Code(s): E11.9 - Type 2 diabetes mellitus without complications Status: Acute Assessment and Plan: * suboptimal control at baseline (last A1c elevated) * etiology of ESRD * on SSI and Lantus Will continue to follow. Subjective Date/time seen: 07/06/19 14:12 Tolerated dialysis yesterday without any issues or problems; still with occas sional abdominal pain but seems better with positional changes (patient thinks it may be muscular); no apparent distress otherwise. Exam Narrative: Exam Narrative: General: WD/WN female in NAD Heart: normal S1 and S2; no rub Lungs: clear to auscultation Abdomen: soft, mild TTP, nondistended, positive bowel sounds Extremities: no cyanosis or clubbing; chronic edematous changes Skin: some erythema with chronic venous stasis appearance Objective Data Vital Signs Vital Signs: Vital Signs Temp Pulse Resp BP Pulse Ox 07/06/19 13:45 37.1 C 70 18 164/61 H 95 07/06/19 12:00 87 07/06/19 08:47 10 L 07/06/19 08:00 71 07/06/19 06:00 36.8 C 69 20 157/66 H 96 07/06/19 04:00 69 07/06/19 00:00 78 07/05/19 22:00 37.1 C 68 20 174/53 H 96 07/05/19 21:33 70 07/05/19 20:00 69 07/05/19 16:00 67 Intake/Output Intake/Output: Intake & Output 07/03/19 07/04/19 07/05/19 07/06/19 23:59 23:59 23:59 23:59 Intake Total 1280 1820 350 Output Total 100 4109 400 Balance 1180 -2289 -50 Meds/Results Medications:
--- NOTE | 2019-07-06 14:12 | PM.PNNEP ---
Progress Note: A&P Assessment and Plan (1) End-stage renal disease (ESRD): Code(s): N18.6 - End stage renal disease Status: Chronic Assessment and Plan: does BOTH peritoneal and hemodialysis does HD on Sunday and Fridays and CAPD on (///Sun/ - apparently, this treatment regimen has been ongoing since January 2019 - this was a temporary measure instituted to get her back to dry weight (112kg) plan PD tonight (cannot do CAPD while hospitalized) subsequently HD tomorrow follow electrolytes, volume status, and clearacne (2) High peritoneal fluid white blood cell count: Code(s): R85.89 - Other abnormal findings in specimens from digestive organs and abdominal cavity Status: Acute Assessment and Plan: PD fluid analysis highly suggestive of peritonitis - patient states first CAPD exchange at home is always cloudy but clears over the course of the day blood/PD fluid cultures pending; gram stain negative on IV antibiotics elevated WBC on admission but better (3) Hyponatremia: Code(s): E87.1 - Hypo-osmolality and hyponatremia Status: Acute Assessment and Plan: related to renal failure and propensity for fluid retention fluid removal with PD and HD as tolerated follow trend (4) Infarction of liver: Code(s): K76.3 - Infarction of liver Status: Acute Assessment and Plan: confirmed by repeat imaging etiology??? possible explanation of PD fluid analysis? (5) Hypertension: Code(s): I10 - Essential (primary) hypertension Status: Chronic Assessment and Plan: continue home BP medications aggressive ultrafiltration should help follow trend of hemodynamics (6) Diabetes: Code(s): E11.9 - Type 2 diabetes mellitus without complications Status: Acute Assessment and Plan: suboptimal control at baseline (last A1c elevated) etiology of ESRD on SSI and Lantus Will continue to follow. Subjective Date/time seen: 07/06/19 14:12 Tolerated dialysis yesterday without any issues or problems; still with occassional abdominal pain but seems better with positional changes (patient thinks it may be muscular); no apparent distress otherwise. Exam Narrative: Exam Narrative: General: WD/WN female in NAD Heart: normal S1 and S2; no rub Lungs: clear to auscultation Abdomen: soft, mild TTP, nondistended, positive bowel sounds Extremities: no cyanosis or clubbing; chronic edematous changes Skin: some erythema with chronic venous stasis appearance Objective Data Vital Signs Vital Signs: Vital Signs Temp Pulse Resp BP Pulse Ox 07/06/19 13:45 37.1 C 70 18 164/61 H 95 07/06/19 12:00 87 07/06/19 08:47 10 L 07/06/19 08:00 71 07/06/19 06:00 36.8 C 69 20 157/66 H 96 07/06/19 04:00 69 07/06/19 00:00 78 07/05/19 22:00 37.1 C 68 20 174/53 H 96 07/05/19 21:33 70 07/05/19 20:00 69 07/05/19 16:00 67 Intake/Output Intake/Output: Intake & Output 07/03/19 07/04/19 07/05/19 07/06/19 23:59 23:59 23:59 23:59 Intake Total 1280 1820 350 Output Total 100 4109 400 Balance 5810 -5979 -50 Meds/Results Medications: Active Medications Generic Name Dose Route Start Last Admin Trade Name Freq PRN Reason Stop Dose Admin Acetaminophen 650 mg 07/05/19 15:24 Tylenol Tablet PO Q6H PRN Mild Pain (1-5) Or Fever Allopurinol 100 mg 07/05/19 08:00 07/06/19 08:47 Zyloprim PO 100 mg DAILY@0800 MICHELL Administration Bupropion HCl 150 mg 07/05/19 09:00 07/06/19 08:55 Wellbutrin-Sr (12 Hr) PO 150 mg DAILY MICHELL Administration Calcium Acetate 667 mg 07/05/19 09:00 07/06/19 08:48 Phoslo PO 667 mg BID MICHELL Administration Carvedilol 25 mg 07/05/19 09:00 07/06/19 08:47 Coreg PO 25 mg Q12HR MICHELL Administration Dextrose 12.5 gm 07/05/19 01:08 Dextrose 50
[2019-07-06 17:26] LABS: Glucose Point of Care 164 (65-105)
[2019-07-06] MEDS: INSULIN GLARGINE (*BKC) 100 UNITS/ML 50 UNITS SUB-Q (20:59)
[2019-07-06 21:22] LABS: Glucose Point of Care 215 (65-105)
[2019-07-07] VITALS (10 sets, daily range): BP systolic 156–192; BP diastolic 50–93; PULSE 68–79; RESP 14–18; TEMP 36.8–36.9; O2SAT 90–98; BMI 49.5
[2019-07-07 06:00] LABS: Basophils Absolute Auto 0.1 K/mm3 (0.0-0.1); Basophils Percent Auto 0.4 % (0.2-1.2); Eosinophils Absolute Auto 0.5 K/mm3 (0-0.3); Eosinophils Percent Auto 4.7 % (0-4.4); Hematocrit 29.7 % (37.0-47.0); Hemoglobin 9.4 g/dL (12.0-15.0); Immature Granulocyte Absolute 0.09 K/mm3 (0.00-0.031); Immature Granulocyte Percent A 0.8 % (0-0.5); Lymphocytes Absolute Auto 1.44 K/mm3 (0.9-3.2); Lymphocytes Percent Auto 12.9 % (18.3-44.2); Mean Corpuscular HGB Conc 31.6 g/dl (32-36); Mean Corpuscular Hemoglobin 32.4 pg (26-34); Mean Corpuscular Volume 102.4 fl (80-100); Mean Platelet Volume 11.2 fl (7.4-10.4); Monocytes Absolute Auto 0.7 K/mm3 (0.1-0.6); Monocytes Percent Auto 6.2 % (2.6-8.5); Neutrophils Absolute Auto 8.4 K/mm3 (1.3-6.7); Platelet Count Result 228 k/mm3 (150-375); Red Cell Distribution Width 14.2 % (11.5-14.5); White Blood Count 11.2 K/mm3 (4.5-10.0)
[2019-07-07 06:10] LABS: Albumin Level 2.7 g/dL (3.5-5.1); Blood Urea Nitrogen 19 mg/dL (7-17); Calcium 8.3 mg/dL (8.4-10.2); Carbon Dioxide 27 mmol/L (22-30); Chloride 98 mmol/L (98-107); Estimated CRCL calculation 17 ml/min; Estimated Glomerular Filt Rate 13; Glucose 287 mg/dL (65-105); Phosphorus 4.4 mg/dL (2.5-4.5); Potassium 3.5 mmol/L (3.4-5.0); Sodium 132 mmol/L (137-145)
[2019-07-07 09:03] LABS: Glucose Point of Care 208 (65-105)
[2019-07-07] MEDS: INSULIN ASPART (*BKC) 100 UNITS/ML SUB-Q ×3 (09:04→18:26)
[2019-07-07] MEDS: CALCIUM ACETATE 667 MG TABLET PO ×2 (09:09→17:07)
[2019-07-07] MEDS: allopurinoL 100 MG TABLET PO (09:09)
[2019-07-07] MEDS: carvediloL 25 MG TABLET PO ×2 (09:10→21:50)
[2019-07-07] MEDS: CHOLECALCIFEROL 1,000 UNIT TABLET 5000 UNITS PO ×2 (09:10→17:07)
[2019-07-07] MEDS: METOCLOPRAMIDE HCL 10 MG TABLET PO (09:11)
[2019-07-07] MEDS: VITAMIN B CMPLX/VIT C/FOLIC AC 1 CAPSULE 1 CAP PO (09:11)
[2019-07-07] MEDS: HEPARIN SODIUM 5,000 UNITS/ML VIAL 5000 UNITS SUB-Q ×2 (09:26→21:53)
--- NOTE | 2019-07-07 09:30 | PM.IMPN ---
Progress Note: A&P Assessment and Plan (1) High peritoneal fluid white blood cell count: Code(s): R85.89 - Other abnormal findings in specimens from digestive organs and abdominal cavity Status: Acute Assessment and Plan: -----patient's peritoneal fluid showed over 4000 nucleated cells and 90% neutrophils which is worrisome for infection. The Gram stain shows white blood cells but no bacteria. Sometimes this has a low yield and growing bacteria. Will continue treatment. Patient had a fever once on admission but none since. Leukocytosis has improved. Will continue with Zosyn and vancomycin. (2) Splenic infarction: Code(s): D73.5 - Infarction of spleen Status: Acute Assessment and Plan: -----noted on CT. I spoke with the radiologist who strongly suspects infarction. Unsure when this infarction happened. She has a history of hypotension about 2 weeks ago in dialysis which could have been the cause. She reports that she got an abdominal MRI from [place] and we are waiting for those results. A blood clot seems less likely since she also has liver infarctions as well and no history or family history of blood clots. Radiology does not think these look like masses or abscesses. She has absolutely no pain in this area. I have request records 2 times over the weekend and [facility], called today and they said they will fax it over. She reportedly had an abdominal MRI at [place]. -We reviewed her past medical history but are waiting for records. She said that she was admitted for colitis at [place] and was discharge June 02 and finished all of her antibiotics (flagyl and Levaquin). She said during this hospitalization the pain was in her left upper quadrant and she had an MRI of the abdomen at that time. They did not suspect IBD at that time and thought it was infectious. She did have a colonoscopy before this, in and had 6-8 polyps removed. - She said that she was taken off lasix 2 weeks ago because she was having hypotension in the 70s systolic during dialysis. Since stopping the lasix, she has been around 150 systolic and she checks this at home. - She has no hx of blood clots, cancer, or afib. - She started having foul smelling urine on and did not get a UA but was given keflex and took one dose before coming in. - She has noticed that her peritoneal fluid has been more cloudy than normal. Her abdominal pain, that brought her in, is consistently in the lower 2 quadrants and not in the upper quadrants. This is accompanied by fever. (3) Infarction of liver: Code(s): K76.3 - Infarction of liver Status: Acute Assessment and Plan: -----see above. (4) History of colitis: Code(s): Z87.19 - Personal history of other diseases of the digestive system Status: Acute Assessment and Plan: -----await records from [email or web address]. 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 Continue substitute Lantus and SSI. (7) End-stage renal disease on peritoneal dialysis: Code(s): N18.6 - End stage renal disease; Z99.2 - Dependence on renal dialysis Status: Acute Assessment and Plan: -----Usually does peritoneal dialysis but now may have infection. Continue dialysis as recommended nephrology (8) Hyponatremia: Code(s): E87.1 - Hypo-osmolality and hyponatremia Status: Acu
[2019-07-07] MEDS: LOPERAMIDE HCL 2 MG CAPSULE PO (13:12)
[2019-07-07 13:46] LABS: Glucose Point of Care 237 (65-105)
--- NOTE | 2019-07-07 16:34 | P.PNNP_ITS ---
Progress Note: A&P Assessment and Plan (1) End-stage renal disease (ESRD): Code(s): N18.6 - End stage renal disease Status: Chronic Assessment and Plan: * does BOTH peritoneal and hemodialysis * This is because of difficulty with controlling volume. This is suppose to be temporary. * Will do hemodialysis today to take fluid off. * On PD and tolerating it well. Blood pressure is okay. Fluid is clear. Seen at 11:00 a.m. * follow electrolytes, volume status, and clearance (2) High peritoneal fluid white blood cell count: Code(s): R85.89 - Other abnormal findings in specimens from digestive organs and abdominal cavity Status: Acute Assessment and Plan: * PD fluid analysis highly suggestive of peritonitis - patient states first CAPD exchange at home is always cloudy but clears over the course of the day * PD fluid cultures no growth todate * Blood cultures negative so far. * on IV antibiotics * Repeat white blood cell count. (3) Hyponatremia: Code(s): E87.1 - Hypo-osmolality and hyponatremia Status: Acute Assessment and Plan: * related to renal failure and propensity for fluid retention * fluid removal with PD and HD as tolerated * follow trend (4) Infarction of liver: Code(s): K76.3 - Infarction of liver Status: Acute Assessment and Plan: * confirmed by repeat imaging * etiology??? * That this s a possible explanation of PD fluid analysis? (5) Hypertension: Code(s): I10 - Essential (primary) hypertension Status: Chronic Assessment and Plan: * continue home BP medications * aggressive ultrafiltration should help * follow trend of hemodynamics (6) Diabetes: Code(s): E11.9 - Type 2 diabetes mellitus without complications Status: Acute Assessment and Plan: * suboptimal control at baseline (last A1c elevated) * etiology of ESRD * on SSI and Lantus Will continue to follow. Subjective Date/time seen: 07/07/19 16:34 Interval history: Kelley feels about the same today. Mild shortness of breath but not too bad cuts she is lying flat in bed. No chest pain. Review of Systems Cardiovascular: Cardiovascular: Reports no additional cardiovascular complaints Respiratory: Respiratory: Reports no additional respiratory complaints Gastrointestinal: Gastrointestinal: Reports no additional gastrointestinal complaints Genitourinary: Genitourinary: Reports no additional female genitourinary complaints Exam 2 Narrative: Exam Narrative: General: WD/WN female in NAD Heart: normal S1 and S2; no rub Lungs: clear Abdomen: soft, mild TTP, nondistended, positive bowel sounds Extremities: chronic edematous changes Skin: chronic venous stasis appearance Objective Data Vital Signs Vital Signs: Vital Signs - 24 hr 07/06/19 18:30 07/06/19 20:00 07/06/19 21:00 Temperature 36.6 C Pulse Rate 70 70 77 Respiratory Rate 14 Blood Pressure 170/68 H Pulse Oximetry 07/06/19 22:00 07/07/19 00:00 07/07/19 04:00 Temperature 37.5 C Pulse Rate 77 76 70 Respiratory Rate 14 Blood Pressure 197/80 H Pulse Oximetry 94 07/07/19 06:00 07/07/19 07:58 07/07/19 09:10 Temperature 36.8 C 36.8 C
--- NOTE | 2019-07-07 16:34 | PM.PNNEP ---
Progress Note: A&P Assessment and Plan (1) End-stage renal disease (ESRD): Code(s): N18.6 - End stage renal disease Status: Chronic Assessment and Plan: does BOTH peritoneal and hemodialysis This is because of difficulty with controlling volume. This is suppose to be temporary. Will do hemodialysis today to take fluid off. On PD and tolerating it well. Blood pressure is okay. Fluid is clear. Seen at 11:00 a.m. follow electrolytes, volume status, and clearance (2) High peritoneal fluid white blood cell count: Code(s): R85.89 - Other abnormal findings in specimens from digestive organs and abdominal cavity Status: Acute Assessment and Plan: PD fluid analysis highly suggestive of peritonitis - patient states first CAPD exchange at home is always cloudy but clears over the course of the day PD fluid cultures no growth todate Blood cultures negative so far. on IV antibiotics Repeat white blood cell count. (3) Hyponatremia: Code(s): E87.1 - Hypo-osmolality and hyponatremia Status: Acute Assessment and Plan: related to renal failure and propensity for fluid retention fluid removal with PD and HD as tolerated follow trend (4) Infarction of liver: Code(s): K76.3 - Infarction of liver Status: Acute Assessment and Plan: confirmed by repeat imaging etiology??? That this s a possible explanation of PD fluid analysis? (5) Hypertension: Code(s): I10 - Essential (primary) hypertension Status: Chronic Assessment and Plan: continue home BP medications aggressive ultrafiltration should help follow trend of hemodynamics (6) Diabetes: Code(s): E11.9 - Type 2 diabetes mellitus without complications Status: Acute Assessment and Plan: suboptimal control at baseline (last A1c elevated) etiology of ESRD on SSI and Lantus Will continue to follow. Subjective Date/time seen: 07/07/19 16:34 Interval history: Kelley feels about the same today. Mild shortness of breath but not too bad cuts she is lying flat in bed. No chest pain. Review of Systems Cardiovascular: Cardiovascular: Reports no additional cardiovascular complaints Respiratory: Respiratory: Reports no additional respiratory complaints Gastrointestinal: Gastrointestinal: Reports no additional gastrointestinal complaints Genitourinary: Genitourinary: Reports no additional female genitourinary complaints Exam Narrative: Exam Narrative: General: WD/WN female in NAD Heart: normal S1 and S2; no rub Lungs: clear Abdomen: soft, mild TTP, nondistended, positive bowel sounds Extremities: chronic edematous changes Skin: chronic venous stasis appearance Objective Data Vital Signs Vital Signs: Vital Signs - 24 hr 07/06/19 18:30 07/06/19 20:00 07/06/19 21:00 Temperature 36.6 C Pulse Rate 70 70 77 Respiratory Rate 14 Blood Pressure 170/68 H Pulse Oximetry 07/06/19 22:00 07/07/19 00:00 07/07/19 04:00 Temperature 37.5 C Pulse Rate 77 76 70 Respiratory Rate 14 Blood Pressure 197/80 H Pulse Oximetry 94 07/07/19 06:00 07/07/19 07:58 07/07/19 09:10 Temperature 36.8 C 36.8 C Pulse Rate 70 70 68 Respiratory Rate 14 14 Blood Pressure 158/50 H 158/50 H Pulse Oximetry 90 07/07/19 14:00 Temperature 36.9 C Pulse Rate 79 Respiratory Rate 18 Blood Pressure 156/93 H Pulse Oximetry 98 Intake/Output Intake/Output: Intake & Output 07/04/19 07/05/19 07/06/19 07/07/19 23:59 23:59 23:59 23:59 Intake Total 1280 1820 940 870 Output Total 100 4109 800 319 Balance 1180 -2569 140 551 Meds/Results Medications: Active Medications Generic Name Dose Route Start Last Admin Trade Name Freq PRN Reason Stop Dose Admin Acetaminophen 650 mg 07/05/19 15:24 Tylenol Tablet PO Q6H PRN Mild Pain (1-5) Or Fever Allopurinol 100 mg 07/05/19 08:00 07/07/19 09:09
[2019-07-07 18:03] LABS: Glucose Point of Care 227 (65-105)
[2019-07-07] MEDS: INSULIN GLARGINE (*BKC) 100 UNITS/ML 50 UNITS SUB-Q (22:07)
[2019-07-07 22:22] LABS: Glucose Point of Care 144 (65-105)
--- NOTE | 2019-07-07 23:44 | PHAR ---
PT'S HOME MEDS VERIFIED BY PHARMACY -RENEE NARVAEZ
[2019-07-08] VITALS (23 sets, daily range): BP systolic 121–178; BP diastolic 43–79; PULSE 61–82; RESP 18; TEMP 36.6–37; O2SAT 92–98
[2019-07-08] MEDS: hydrALAZINE HCL 20 MG/ML VIAL 5 MG IV PUSH (00:28)
[2019-07-08] MEDS: MORPHINE SULFATE 2 MG/ML INJ IV PUSH (04:18)
--- NOTE | 2019-07-08 05:22 | PHAR ---
PT'S HOME MEDS VERIFIED BY PHARMACY HUMALOG INSULIN U-100 KWIK PEN TRESIBA FLEXTOUCH U-200 INSULIN PEN
[2019-07-08 06:33] LABS: Hemoglobin 10.1 g/dL (12.0-15.0); Mean Corpuscular HGB Conc 31.6 g/dl (32-36); Mean Corpuscular Hemoglobin 32.3 pg (26-34); Mean Corpuscular Volume 102.2 fl (80-100); Mean Platelet Volume 11.1 fl (7.4-10.4); Platelet Count Result 238 k/mm3 (150-375); Red Blood Count 3.13 M/mm3 (4.2-5.4); Red Cell Distribution Width 14.3 % (11.5-14.5); White Blood Count 11.4 K/mm3 (4.5-10.0)
[2019-07-08 06:45] LABS: Albumin Level 2.8 g/dL (3.5-5.1); Blood Urea Nitrogen 17 mg/dL (7-17); Calcium 8.6 mg/dL (8.4-10.2); Carbon Dioxide 26 mmol/L (22-30); Chloride 99 mmol/L (98-107); Estimated CRCL calculation 15 ml/min; Estimated Glomerular Filt Rate 11; Glucose 378 mg/dL (65-105); Phosphorus 4.4 mg/dL (2.5-4.5); Potassium 3.4 mmol/L (3.4-5.0); Sodium 132 mmol/L (137-145)
[2019-07-08 08:09] LABS: Glucose Point of Care 327 (65-105)
[2019-07-08] MEDS: INSULIN ASPART (*BKC) 100 UNITS/ML SUB-Q (08:51)
[2019-07-08] MEDS: allopurinoL 100 MG TABLET PO (08:54)
[2019-07-08] MEDS: carvediloL 25 MG TABLET PO ×2 (08:55→20:21)
[2019-07-08] MEDS: CALCIUM ACETATE 667 MG TABLET PO ×2 (08:55→17:07)
[2019-07-08] MEDS: CHOLECALCIFEROL 1,000 UNIT TABLET 5000 UNITS PO ×2 (08:56→17:07)
[2019-07-08] MEDS: ERGOCALCIFEROL 50,000 UNIT CAPSULE 50000 UNITS PO (08:56)
[2019-07-08] MEDS: HEPARIN SODIUM 5,000 UNITS/ML VIAL 5000 UNITS SUB-Q ×2 (08:56→20:24)
[2019-07-08] MEDS: LOSARTAN POTASSIUM 100 MG TABLET PO (08:57)
[2019-07-08] MEDS: METOCLOPRAMIDE HCL 10 MG TABLET PO (08:57)
[2019-07-08] MEDS: VITAMIN B CMPLX/VIT C/FOLIC AC 1 CAPSULE 1 CAP PO (08:57)
--- NOTE | 2019-07-08 10:14 | PC.NURSE ---
1000 TO DIALYSIS VIA BED. MAXINE CHACKO
--- NOTE | 2019-07-08 10:30 | P.PNNP_ITS ---
Progress Note: A&P Assessment and Plan (1) End-stage renal disease (ESRD): Code(s): N18.6 - End stage renal disease Status: Chronic Assessment and Plan: * does BOTH peritoneal and hemodialysis * This is because of difficulty with controlling volume. This is supposed to be temporary. * Getting hemodialysis now. * She had peritoneal dialysis and pulled 1L off. This was using a red bag (2) High peritoneal fluid white blood cell count: Code(s): R85.89 - Other abnormal findings in specimens from digestive organs and abdominal cavity Status: Acute Assessment and Plan: * PD fluid analysis highly suggestive of peritonitis - patient states first CAPD exchange at home is always cloudy but clears over the course of the day * PD fluid cultures still show no growth to date * Blood cultures negative so far. * on IV antibiotics * Repeat white blood cell count. (3) Hyponatremia: Code(s): E87.1 - Hypo-osmolality and hyponatremia Status: Acute Assessment and Plan: * related to renal failure and propensity for fluid retention * fluid removal with PD and HD as tolerated * follow trend (4) Infarction of liver: Code(s): K76.3 - Infarction of liver Status: Acute Assessment and Plan: * confirmed by repeat imaging * etiology??? * That this s a possible explanation of PD fluid analysis? (5) Hypertension: Code(s): I10 - Essential (primary) hypertension Status: Chronic Assessment and Plan: * continue home BP medications * aggressive ultrafiltration should help * Were removing fluid with hemo today. * See how her blood pressure is tomorrow. (6) Diabetes: Code(s): E11.9 - Type 2 diabetes mellitus without complications Status: Acute Assessment and Plan: * suboptimal control at baseline (last A1c elevated) * etiology of ESRD * on SSI and Lantus Additional Plan Subjective Date/time seen: 07/08/19 10:30 Interval history: Kelley feels about the same today. On dialysis and tolerating it well. Her blood pressure looks good. We are removing 2-3 L as tolerated. She was seen at 10:15 a.m. Review of Systems Cardiovascular: Cardiovascular: Reports no additional cardiovascular complaints Respiratory: Respiratory: Reports no additional respiratory complaints Gastrointestinal: Gastrointestinal: Reports no additional gastrointestinal complaints Genitourinary: Genitourinary: Reports no additional female genitourinary complaints Exam Narrative: Exam Narrative: General: WD/WN female in NAD Heart: normal S1 and S2; no rub Lungs: clear bilaterally Abdomen: soft, mild TTP, nondistended, positive bowel sounds Extremities: chronic edematous changes Skin: No acute rash Objective Data Vital Signs Vital Signs: Vital Signs - 24 hr 07/07/19 14:00 07/07/19 21:31 07/07/19 21:50 Temperature 36.9 C 36.9 C Pulse Rate 79 79 73 Respiratory Rate 18 18 Blood Pressure 156/93 H 156/93 H Pulse Oximetry 98 07/07/19 22:00 07/08/19 01:30 07/08/19 06:00 Temperature 36.8 C 36.6 C Pulse Rate 76 70 Respiratory Rate 18 18 Blood Pressure 192/74 H 162/76 H 178/75 H Pulse Oximetry 94 92 07/08/19 08:55 07/08/19 09:50 07/08/19 10:00
--- NOTE | 2019-07-08 10:30 | PM.PNNEP ---
Progress Note: A&P Assessment and Plan (1) End-stage renal disease (ESRD): Code(s): N18.6 - End stage renal disease Status: Chronic Assessment and Plan: does BOTH peritoneal and hemodialysis This is because of difficulty with controlling volume. This is supposed to be temporary. Getting hemodialysis now. She had peritoneal dialysis and pulled 1L off. This was using a red bag (2) High peritoneal fluid white blood cell count: Code(s): R85.89 - Other abnormal findings in specimens from digestive organs and abdominal cavity Status: Acute Assessment and Plan: PD fluid analysis highly suggestive of peritonitis - patient states first CAPD exchange at home is always cloudy but clears over the course of the day PD fluid cultures still show no growth to date Blood cultures negative so far. on IV antibiotics Repeat white blood cell count. (3) Hyponatremia: Code(s): E87.1 - Hypo-osmolality and hyponatremia Status: Acute Assessment and Plan: related to renal failure and propensity for fluid retention fluid removal with PD and HD as tolerated follow trend (4) Infarction of liver: Code(s): K76.3 - Infarction of liver Status: Acute Assessment and Plan: confirmed by repeat imaging etiology??? That this s a possible explanation of PD fluid analysis? (5) Hypertension: Code(s): I10 - Essential (primary) hypertension Status: Chronic Assessment and Plan: continue home BP medications aggressive ultrafiltration should help Were removing fluid with hemo today. See how her blood pressure is tomorrow. (6) Diabetes: Code(s): E11.9 - Type 2 diabetes mellitus without complications Status: Acute Assessment and Plan: suboptimal control at baseline (last A1c elevated) etiology of ESRD on SSI and Lantus Additional Plan Subjective Date/time seen: 07/08/19 10:30 Interval history: Kelley feels about the same today. On dialysis and tolerating it well. Her blood pressure looks good. We are removing 2-3 L as tolerated. She was seen at 10:15 a.m. Review of Systems Cardiovascular: Cardiovascular: Reports no additional cardiovascular complaints Respiratory: Respiratory: Reports no additional respiratory complaints Gastrointestinal: Gastrointestinal: Reports no additional gastrointestinal complaints Genitourinary: Genitourinary: Reports no additional female genitourinary complaints Exam Narrative: Exam Narrative: General: WD/WN female in NAD Heart: normal S1 and S2; no rub Lungs: clear bilaterally Abdomen: soft, mild TTP, nondistended, positive bowel sounds Extremities: chronic edematous changes Skin: No acute rash Objective Data Vital Signs Vital Signs: Vital Signs - 24 hr 07/07/19 14:00 07/07/19 21:31 07/07/19 21:50 Temperature 36.9 C 36.9 C Pulse Rate 79 79 73 Respiratory Rate 18 18 Blood Pressure 156/93 H 156/93 H Pulse Oximetry 98 07/07/19 22:00 07/08/19 01:30 07/08/19 06:00 Temperature 36.8 C 36.6 C Pulse Rate 76 70 Respiratory Rate 18 18 Blood Pressure 192/74 H 162/76 H 178/75 H Pulse Oximetry 94 92 07/08/19 08:55 07/08/19 09:50 07/08/19 10:00 Temperature 36.6 C Pulse Rate 74 75 74 Respiratory Rate 18 Blood Pressure 157/77 H 151/79 H Pulse Oximetry 07/08/19 10:06 07/08/19 10:15 Temperature 36.6 C Pulse Rate 70 73 Respiratory Rate 18 Blood Pressure 178/75 H 158/78 H Pulse Oximetry Intake/Output Intake/Output: Intake & Output 07/05/19 07/06/19 07/07/19 07/08/19 23:59 23:59 23:59 23:59 Intake Total 6410 039 9836 600 Output Total 4109 709 301 3087 Balance -2289 140 1931 -444 Meds/Results Medications: Active Medications Generic Name Dose Route Start Last Admin Trade Name Freq PRN Reason Stop Dose Admin Acetaminophen 650 mg 07/05/19 15:24 Tylenol Tablet PO Q6H PRN Mild Pain (1-5)
[2019-07-08] MEDS: EPOETIN ALFA 10,000 UNITS/ML VIAL 10000 UNITS IV PUSH (12:18)
[2019-07-08 12:51] LABS: Glucose Point of Care 135 (65-105)
--- NOTE | 2019-07-08 13:36 | PC.NURSE ---
1325 RETURNED FROM DIALYSIS VIA BED. ALERT/ORIENT X3. TALKATIVE AND COOPERATIVE. NO C/O PAIN OR DISCOMFORT. DIALYSIS SHUNT COVERED W/ DRY DRESSING, NO ACTIVE BLEEDING NOTED. Paul FUNG RN
--- NOTE | 2019-07-08 15:04 | PM.IMPN ---
Progress Note: A&P Assessment and Plan (1) High peritoneal fluid white blood cell count: Code(s): R85.89 - Other abnormal findings in specimens from digestive organs and abdominal cavity Status: Acute Assessment and Plan: Peritoneal fluid showed over 4000 nucleated cells and 90% neutrophils worrisome for peritonitis. Patient notes her PD fluid has been more cloudy lately. Gram stain shows WBC but no bacteria. Fevers and leukocytosis improved. Will continue treatment with Zosyn (day 5) and Vancomycin (day 4). (2) Splenic infarction: Code(s): D73.5 - Infarction of spleen Status: Acute Assessment and Plan: CT shows scattered liver and splenic hypodense regions, consistent with infarctions. No thrombus visualized. Unsure when infarct occurred. May 31, 2019 admitted to [facility] with colitis and these same lesions were seen on abdominal MRI at that time as well. She was seen by gastroenterology 1 month ago during that admission and was instructed to follow up with GI as an outpatient for this and some delayed emptying on a gastric emptying study. She has no pain in this region. Etiology unclear; no h/o VTE, cancer, or cardiac arrhythmias. At this point being asymptomatic would recommend she follow up as an outpatient with her established GI from [facility]. (3) Infarction of liver: Code(s): K76.3 - Infarction of liver Status: Acute Assessment and Plan: See above. (4) History of colitis: Code(s): Z87.19 - Personal history of other diseases of the digestive system Status: Acute Assessment and Plan: Treated with a course of antibiotics, admitted 05/30 - 06/02/2019 at [facility] for colitis. 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 H&H low but stable. No evidence of acute bleeding. (6) Diabetes mellitus with hyperglycemia, with long-term current use of insulin: Qualifiers: Diabetes mellitus type: type 2 Qualified Code(s): E11.65 - Type 2 diabetes mellitus with hyperglycemia; Z79.4 - linux admin (current) use of insulin Code(s): E11.65 - Type 2 diabetes mellitus with hyperglycemia; Z79.4 - linux admin (current) use of insulin Status: Acute Assessment and Plan: A1c 8.6. Continue her home Tresiba, humalog (patient insists on using her humalog from home instead of our novolog) and monitor with Accu-cheks, cover with sliding scale insulin. Home humalog dosing is scheduled 14 units with each meal plus a slide; we can continue her humalog at a lower dose of 6 units scheduled with each meal plus sliding scale per our own moderate-dose SSI instructions. (7) End-stage renal disease on peritoneal dialysis: Code(s): N18.6 - End stage renal disease; Z99.2 - Dependence on renal dialysis Status: Acute Assessment and Plan: Currently doing both peritoneal and hemodialysis due to difficulty controlling volume. Continue nephrology recommendations - appreciate input. (8) Hyponatremia: Code(s): E87.1 - Hypo-osmolality and hyponatremia Status: Chronic Assessment and Plan: 132 today, will monitor. (9) Hypertension: Qualifiers: Hypertension type: essential hypertension Qualified Code(s): I10 - Essential (primary) hypertension Code(s): I10 - Essential (primary) hypertension Status: Chronic Assessment and Plan: BP stable, continue home coreg, monitor BP. Subjective Date/time seen: 07/08/19 1400 Interval history: Ms. Rodriguez is a 69 yo F admitted with abdominal pain and susp
[2019-07-08 17:21] LABS: Glucose Point of Care 153 (65-105)
[2019-07-08 19:45] LABS: Haptoglobin 220 mg/dL (43-212)
[2019-07-08 21:00] LABS: Glucose Point of Care 168 (65-105)
[2019-07-08 23:34] LABS: Alpha 1 Globulin 0.4 g/dL (0.2-0.3); Alpha 2 Globulin 0.7 g/dL (0.5-0.9); Beta 1 Globulin 0.3 g/dL (0.4-0.6); Gamma Globulin 1.1 g/dL (0.8-1.7); Protein, Total 4.9 g/dL (6.1-8.1)
--- NOTE | 2019-07-09 | ECHO_ITS ---
Patient Info Name: Kelley Rodriguez Age: 69 years : 1950 Gender: Female Ht: 62 in Wt: 256 lbs BSA: 2.33 m2 HR: 82 bpm BP: 161 / 43 mmHg Technical Quality: Good Exam Date: 07/09/2019 11:42 AM Exam Location: [facility] Patient Status: Inpatient Admit Date: 07/04/2019 Staff Ordering Physician: Narciso Garcia MD Worm Packer: Jeferson Beverly RDCS, RT Attending Provider: Alix Bee PA-C Referring Physician: Radha WESLEY; Exam Type: CA echo doppler color flow Study Info Indications I26.09 - Other pulmonary embolism with acute cor pulmonale Complete two-dimensional, color flow and Doppler transthoracic echocardiogram is performed. Summary 1. Left ventricular chamber size and systolic function are normal with no regional wall motion abnormalities with an estimated ejection fraction of 55-60%. Moderate LVH and grade 2 diastolic dysfunction are present. 2. Left atrial chamber dimension is moderately enlarged. 3. There is mild mitral valve regurgitation. 4. Moderate pulmonary hypertension, estimated pulmonary arterial systolic pressure is 53 mmHg. 5. Normal sinus rhythm. Left Ventricle Left ventricular chamber dimension is normal. Left ventricular systolic function is normal, estimated at 55-60%. There is moderately increased left ventricular wall thickness. Left ventricular septal wall motion is normal. The left ventricular diastolic function is grade II diastolic dysfunction. Left ventricular chamber size and systolic function are normal with no regional wall motion abnormalities with an estimated ejection fraction of 55-60%. Moderate LVH and grade 2 diastolic dysfunction are present. Right Ventricle Right ventricular chamber dimension is normal. Right ventricular systolic function is normal. Left Atria Left atrial chamber dimension is moderately enlarged. Right Atria Right atrial chamber dimension is normal. Aortic Valve The aortic valve is trileaflet. There is no aortic valve sclerosis. There is no aortic valve stenosis. There is no aortic valve regurgitation. Pulmonic Valve The pulmonic valve is normal. There is no pulmonic valve stenosis. There is trace pulmonic regurgitation. Mitral Valve The mitral valve has thickened leaflets. There is no mitral valve stenosis. There is mild mitral valve regurgitation. Tricuspid Valve The tricuspid valve leaflets are normal. There is no significant tricuspid valve stenosis. There is trace tricuspid valve regurgitation. Moderate pulmonary hypertension, estimated pulmonary arterial systolic pressure is 53 mmHg. Pericardium/Pleural The pericardium appears normal. There is no pericardial effusion. Inferior Vena Cava Normal inferior vena cava with >50% collapse upon inspiration consistent with Empty right atrial pressure, 10 mmHg. Aorta The aortic root size at the sinus of Valsalva is normal. The prox ascending aorta size is normal. Left Ventricular Outflow Tract Name Value Normal LVOT 2D LVOT Diameter 2.2 cm LVOT Doppler LVOT Peak Gradient 4 mmHg LVOT Mean Gradient
[2019-07-09] MEDS: MORPHINE SULFATE 2 MG/ML INJ IV PUSH (00:17)
[2019-07-09 06:00] VITALS: BP 161/43; PULSE 76; RESP 18; TEMP 36.8; O2SAT 93
[2019-07-09] MEDS: CALCIUM ACETATE 667 MG TABLET PO ×2 (08:27→17:30)
[2019-07-09] MEDS: VITAMIN B CMPLX/VIT C/FOLIC AC 1 CAPSULE 1 CAP PO (08:27)
[2019-07-09] MEDS: carvediloL 25 MG TABLET PO ×2 (08:27→21:26)
[2019-07-09] MEDS: METOCLOPRAMIDE HCL 10 MG TABLET PO (08:27)
[2019-07-09] MEDS: allopurinoL 100 MG TABLET PO (08:28)
[2019-07-09] MEDS: CHOLECALCIFEROL 1,000 UNIT TABLET 5000 UNITS PO ×2 (08:28→17:30)
[2019-07-09 08:37] LABS: Hematocrit 33.5 % (37.0-47.0); Hemoglobin 10.8 g/dL (12.0-15.0); Mean Corpuscular HGB Conc 32.2 g/dl (32-36); Mean Corpuscular Hemoglobin 32.6 pg (26-34); Mean Corpuscular Volume 101.2 fl (80-100); Mean Platelet Volume 10.7 fl (7.4-10.4); Platelet Count Result 276 k/mm3 (150-375); Red Blood Count 3.31 M/mm3 (4.2-5.4); Red Cell Distribution Width 14.4 % (11.5-14.5)
[2019-07-09] MEDS: HEPARIN SODIUM 5,000 UNITS/ML VIAL 5000 UNITS SUB-Q ×2 (08:43→21:36)
[2019-07-09 08:59] LABS: Blood Urea Nitrogen 12 mg/dL (7-17); Calcium 8.4 mg/dL (8.4-10.2); Carbon Dioxide 29 mmol/L (22-30); Chloride 102 mmol/L (98-107); Estimated CRCL calculation 18 ml/min; Estimated Glomerular Filt Rate 14; Glucose 59 mg/dL (65-105); Phosphorus 3.4 mg/dL (2.5-4.5); Potassium 3.4 mmol/L (3.4-5.0); Sodium 135 mmol/L (137-145)
[2019-07-09 09:30] LABS: Glucose Point of Care 50 (65-105)
[2019-07-09 09:30] LABS: Glucose Point of Care 93 (65-105)
[2019-07-09 09:50] LABS: Vancomycin Trough 18.7 ug/mL (10.0-20.0)
--- NOTE | 2019-07-09 10:31 | P.PNNP_ITS ---
Progress Note: A&P Assessment and Plan (1) End-stage renal disease (ESRD): Code(s): N18.6 - End stage renal disease Status: Chronic Assessment and Plan: * does BOTH peritoneal and hemodialysis * This is because of difficulty with controlling volume. She is close to her baseline swelling. * Continues peritoneal dialysis. * She had peritoneal dialysis and pulled 1L off. This was using a red bag (2) High peritoneal fluid white blood cell count: Code(s): R85.89 - Other abnormal findings in specimens from digestive organs and abdominal cavity Status: Acute Assessment and Plan: * PD fluid analysis highly suggestive of peritonitis - patient states first CAPD exchange at home is always cloudy but clears over the course of the day * PD fluid cultures still show no growth to date * Blood cultures negative so far. * on IV antibiotics * Repeat white blood cell count ordered. I am not sure if it was done when they took her off the dialysis today. (3) Hyponatremia: Code(s): E87.1 - Hypo-osmolality and hyponatremia Status: Chronic Assessment and Plan: * related to renal failure and propensity for fluid retention * fluid removal with PD and HD as tolerated * Just barely low today. (4) Infarction of liver: Code(s): K76.3 - Infarction of liver Status: Acute Assessment and Plan: * confirmed by repeat imaging * etiology??? * Is this a possible explanation of PD fluid leukocytosis? (5) Hypertension: Qualifiers: Hypertension type: essential hypertension Qualified Code(s): I10 - Essential (primary) hypertension Code(s): I10 - Essential (primary) hypertension Status: Chronic Assessment and Plan: * continue home BP medications * Much of the fluid is removed but her blood pressure is still high. * She is currently on carvedilol, losartan. * Will change losartan to irbesartan. (6) Diabetes: Code(s): E11.9 - Type 2 diabetes mellitus without complications Status: Acute Assessment and Plan: * suboptimal control at baseline (last A1c elevated) * etiology of ESRD * on SSI and Lantus Additional Plan Subjective Date/time seen: 07/09/19 10:31 Interval history: Kelley feels about the same today. Swelling is better. No more belly pain. Review of Systems Cardiovascular: Cardiovascular: Reports no additional cardiovascular complain ts Respiratory: Respiratory: Reports no additional respiratory complaints Gastrointestinal: Gastrointestinal: Reports no additional gastrointestinal complaints Genitourinary: Genitourinary: Reports no additional female genitourinary complaints Exam Narrative: Exam Narrative: General: WD/WN female in NAD Heart: normal S1 and S2; no rub Lungs: clear bilaterally Abdomen: soft, no tenderness at all. Nondistended, positive bowel sounds Extremities: chronic edematous changes Skin: No acute rash Objective Data Vital Signs Vital Signs: Vital Signs - 24 hr 07/08/19 10:45 07/08/19 11:00 07/08/19 11:15 Temperature Pulse Rate 64 61 64 Respiratory Rate Blood Pressure 141/69 H 142/62 H 150/74 H Pulse Oximetry 07/08/19 11:30 07/08/19 11:45 07/08/19 12:00 Temperature Pulse Rate 69 67 72 Respiratory Rate
--- NOTE | 2019-07-09 10:31 | PM.PNNEP ---
Progress Note: A&P Assessment and Plan (1) End-stage renal disease (ESRD): Code(s): N18.6 - End stage renal disease Status: Chronic Assessment and Plan: does BOTH peritoneal and hemodialysis This is because of difficulty with controlling volume. She is close to her baseline swelling. Continues peritoneal dialysis. She had peritoneal dialysis and pulled 1L off. This was using a red bag (2) High peritoneal fluid white blood cell count: Code(s): R85.89 - Other abnormal findings in specimens from digestive organs and abdominal cavity Status: Acute Assessment and Plan: PD fluid analysis highly suggestive of peritonitis - patient states first CAPD exchange at home is always cloudy but clears over the course of the day PD fluid cultures still show no growth to date Blood cultures negative so far. on IV antibiotics Repeat white blood cell count ordered. I am not sure if it was done when they took her off the dialysis today. (3) Hyponatremia: Code(s): E87.1 - Hypo-osmolality and hyponatremia Status: Chronic Assessment and Plan: related to renal failure and propensity for fluid retention fluid removal with PD and HD as tolerated Just barely low today. (4) Infarction of liver: Code(s): K76.3 - Infarction of liver Status: Acute Assessment and Plan: confirmed by repeat imaging etiology??? Is this a possible explanation of PD fluid leukocytosis? (5) Hypertension: Qualifiers: Hypertension type: essential hypertension Qualified Code(s): I10 - Essential (primary) hypertension Code(s): I10 - Essential (primary) hypertension Status: Chronic Assessment and Plan: continue home BP medications Much of the fluid is removed but her blood pressure is still high. She is currently on carvedilol, losartan. Will change losartan to irbesartan. (6) Diabetes: Code(s): E11.9 - Type 2 diabetes mellitus without complications Status: Acute Assessment and Plan: suboptimal control at baseline (last A1c elevated) etiology of ESRD on SSI and Lantus Additional Plan Subjective Date/time seen: 07/09/19 10:31 Interval history: Kelley feels about the same today. Swelling is better. No more belly pain. Review of Systems Cardiovascular: Cardiovascular: Reports no additional cardiovascular complaints Respiratory: Respiratory: Reports no additional respiratory complaints Gastrointestinal: Gastrointestinal: Reports no additional gastrointestinal complaints Genitourinary: Genitourinary: Reports no additional female genitourinary complaints Exam Narrative: Exam Narrative: General: WD/WN female in NAD Heart: normal S1 and S2; no rub Lungs: clear bilaterally Abdomen: soft, no tenderness at all. Nondistended, positive bowel sounds Extremities: chronic edematous changes Skin: No acute rash Objective Data Vital Signs Vital Signs: Vital Signs - 24 hr 07/08/19 10:45 07/08/19 11:00 07/08/19 11:15 Temperature Pulse Rate 64 61 64 Respiratory Rate Blood Pressure 141/69 H 142/62 H 150/74 H Pulse Oximetry 07/08/19 11:30 07/08/19 11:45 07/08/19 12:00 Temperature Pulse Rate 69 67 72 Respiratory Rate Blood Pressure 136/57 L 133/57 L 121/57 L Pulse Oximetry 07/08/19 12:15 07/08/19 12:30 07/08/19 12:45 Temperature Pulse Rate 82 65 68 Respiratory Rate Blood Pressure 147/64 H 154/60 H 129/46 L Pulse Oximetry 07/08/19 13:01 07/08/19 13:05 07/08/19 14:00 Temperature 36.6 C 36.6 C Pulse Rate 67 67 68 Respiratory Rate 18 18 Blood Pressure 127/53 L 148/43 H 134/51 L Pulse Oximetry 98 07/08/19 20:21 07/08/19 21:39 07/09/19 06:00 Temperature 36.9 C 36.8 C Pulse Rate 64 72 76 Respiratory Rate 18 18 Blood Pressure 149/67 H 161/43 H Pulse Oximetry 97 93 Intake/Output Intake/Output: Intake & Output 07/06/19
--- NOTE | 2019-07-09 10:59 | PM.IMPN ---
Progress Note: A&P Assessment and Plan (1) High peritoneal fluid white blood cell count: Code(s): R85.89 - Other abnormal findings in specimens from digestive organs and abdominal cavity Status: Acute Assessment and Plan: Peritoneal fluid showed over 4000 nucleated cells and 90% neutrophils worrisome for peritonitis. Patient notes her PD fluid has been more cloudy lately. Gram stain shows WBC but no bacteria. Fevers and leukocytosis improved. Will continue treatment with Zosyn (day 6) and Vancomycin (day 5). (2) Splenic infarction: Code(s): D73.5 - Infarction of spleen Status: Acute Assessment and Plan: CT shows scattered liver and splenic hypodense regions, consistent with infarctions. No thrombus visualized. Unsure when infarct occurred. May 31, 2019 admitted to [facility] with colitis and these same lesions were seen on abdominal MRI at that time as well. She was seen by gastroenterology Dr Jimenez 1 month ago during that admission and was instructed to follow up with GI as an outpatient for this and some delayed emptying on a gastric emptying study. She has no pain in this region. Etiology unclear; no h/o VTE, cancer, or cardiac arrhythmias. Dr Garcia ordered echocardiogram to evaluate for any possible embolic source. At this point being asymptomatic would recommend she follow up as an outpatient with her established GI from [facility]. (3) Infarction of liver: Code(s): K76.3 - Infarction of liver Status: Acute Assessment and Plan: See above. (4) History of colitis: Code(s): Z87.19 - Personal history of other diseases of the digestive system Status: Acute Assessment and Plan: Treated with a course of antibiotics, admitted 05/30 - 06/02/2019 at [facility] for colitis. 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 H&H low but stable. No evidence of acute bleeding. (6) Diabetes mellitus with hyperglycemia, with long-term current use of insulin: Qualifiers: Diabetes mellitus type: type 2 Qualified Code(s): E11.65 - Type 2 diabetes mellitus with hyperglycemia; Z79.4 - half-way (current) use of insulin Code(s): E11.65 - Type 2 diabetes mellitus with hyperglycemia; Z79.4 - half-way (current) use of insulin Status: Acute Assessment and Plan: A1c 8.6. Continue her home Tresiba, humalog (patient insists on using her humalog from home instead of our novolog) and monitor with Accu-cheks, cover with sliding scale insulin. Hypoglycemia this AM in 50s, patient reports last night was the first nice she received her Tresiba. We will decrease tonight's Tresiba dose and monitor. Hold scheduled humalog with meals. (7) End-stage renal disease on peritoneal dialysis: Code(s): N18.6 - End stage renal disease; Z99.2 - Dependence on renal dialysis Status: Acute Assessment and Plan: Currently doing both peritoneal and hemodialysis due to difficulty controlling volume. Continue nephrology recommendations - appreciate input. (8) Hyponatremia: Code(s): E87.1 - Hypo-osmolality and hyponatremia Status: Chronic Assessment and Plan: 132 today, will monitor. (9) Hypertension: Qualifiers: Hypertension type: essential hypertension Qualified Code(s): I10 - Essential (primary) hypertension Code(s): I10 - Essential (primary) hypertension Status: Chronic Assessment and Plan: BP a bit more elevated this AM, continue home coreg and monitor BP. Subjective Date/time seen:
[2019-07-09] MEDS: IRBESARTAN 150 MG TABLET 300 MG PO (12:10)
[2019-07-09 12:20] LABS: Glucose Point of Care 253 (65-105)
[2019-07-09 14:00] VITALS: BP 144/69; PULSE 72; RESP 18; TEMP 36.7; O2SAT 93
[2019-07-09 17:53] LABS: Glucose Point of Care 243 (65-105)
[2019-07-09 21:26] VITALS: PULSE 64
[2019-07-09 21:56] VITALS: BP 172/74; PULSE 71; RESP 20; TEMP 36.8; O2SAT 94
[2019-07-09 22:06] LABS: Glucose Point of Care 257 (65-105)
[2019-07-10 06:00] VITALS: BP 150/65; PULSE 69; RESP 16; TEMP 36.5; O2SAT 99
[2019-07-10 06:29] LABS: Basophils Absolute Auto 0.1 K/mm3 (0.0-0.1); Basophils Percent Auto 0.7 % (0.2-1.2); Eosinophils Absolute Auto 0.6 K/mm3 (0-0.3); Eosinophils Percent Auto 4.1 % (0-4.4); Hematocrit 31.5 % (37.0-47.0); Hemoglobin 9.8 g/dL (12.0-15.0); Immature Granulocyte Absolute 0.21 K/mm3 (0.00-0.031); Immature Granulocyte Percent A 1.6 % (0-0.5); Immature Platelet Fraction Pct 13.2 % (0.9-11.2); Lymphocytes Percent Auto 13.3 % (18.3-44.2); Mean Corpuscular HGB Conc 31.1 g/dl (32-36); Mean Corpuscular Hemoglobin 33.2 pg (26-34); Mean Corpuscular Volume 106.8 fl (80-100); Mean Platelet Volume 12.4 fl (7.4-10.4); Monocytes Absolute Auto 0.7 K/mm3 (0.1-0.6); Neutrophils Absolute Auto 10.2 K/mm3 (1.3-6.7); Neutrophils Percent Auto 75.3 % (45.5-73.1); Platelet Count Result 164 k/mm3 (150-375); Red Blood Count 2.95 M/mm3 (4.2-5.4); Red Cell Distribution Width 14.6 % (11.5-14.5); White Blood Count 13.5 K/mm3 (4.5-10.0)
--- NOTE | 2019-07-10 07:39 | PC.NURSE ---
PD Effluent sample obtained and sent to lab. Unable to collect in computer- sent specimen per lab instructions.
[2019-07-10 08:07] LABS: Appearance Peritoneal Fluid Clear (Clear); Color Peritoneal Fluid Colorless (Colorless); Eosinophils Peritoneal Fluid 1 %; Lymphocytes Peritoneal Fluid 30 %; Macrophages Peritoneal Fluid 1 %; Mesothelial Cells Peritoneal Fluid 3 %; Monocytes Peritoneal Fluid 33 %; Neutrophils Peritoneal Fluid 32 % (0-25); Nucleated Cells Peritoneal Flu 23 /uL (0-500); RBC Peritoneal Fluid 34 /uL (0-100000); Source Peritoneal Fluid Peritoneal Fluid
[2019-07-10 08:44] LABS: Glucose Point of Care 291 (65-105)
[2019-07-10 09:11] LABS: Albumin Level 2.9 g/dL (3.5-5.1); Blood Urea Nitrogen 16 mg/dL (7-17); Calcium 8.5 mg/dL (8.4-10.2); Carbon Dioxide 28 mmol/L (22-30); Chloride 99 mmol/L (98-107); Estimated CRCL calculation 16 ml/min; Estimated Glomerular Filt Rate 13; Glucose 322 mg/dL (65-105); Phosphorus 3.8 mg/dL (2.5-4.5); Potassium 3.6 mmol/L (3.4-5.0); Sodium 132 mmol/L (137-145)
[2019-07-10] MEDS: HEPARIN SODIUM 5,000 UNITS/ML VIAL 5000 UNITS SUB-Q (09:30)
[2019-07-10] MEDS: allopurinoL 100 MG TABLET PO (09:32)
[2019-07-10 09:33] VITALS: PULSE 69
[2019-07-10] MEDS: METOCLOPRAMIDE HCL 10 MG TABLET PO (09:33)
[2019-07-10] MEDS: VITAMIN B CMPLX/VIT C/FOLIC AC 1 CAPSULE 1 CAP PO (09:33)
[2019-07-10] MEDS: CALCIUM ACETATE 667 MG TABLET PO (09:33)
[2019-07-10] MEDS: carvediloL 25 MG TABLET PO (09:33)
[2019-07-10] MEDS: CHOLECALCIFEROL 1,000 UNIT TABLET 5000 UNITS PO (09:33)
[2019-07-10] MEDS: IRBESARTAN 150 MG TABLET 300 MG PO (09:34)
--- NOTE | 2019-07-10 11:26 | PM.DS ---
DS: Diagnosis Admitting Diagnosis Admitting Diagnosis: Other abnormal findings in specimens from digestive organs and abdominal cavity Discharge Diagnosis (1) High peritoneal fluid white blood cell count: Code(s): R85.89 - Other abnormal findings in specimens from digestive organs and abdominal cavity Status: Acute Assessment and Plan: Date of Service 07/10/19 Ms. Rodriguez is a 69yo F with history of ESRD (currently on both peritoneal and hemodialysis - Relief Driller is Dr Mosley), type 2 diabetes, anemia, gastroparesis, and hypertension who presented to the ED for evaluation of abdominal pain. She noted that she had recently been admitted at [facility] in [place] about 1 month ago for abdominal pain and was treated for colitis with antibiotics. She described that her symptoms did improve, but returned again weeks later and presented to [place] ED 07/03 for evaluation of abdominal pain and fever. Her peritoneal fluid was tested and found to have elevated WBC count, concerning for peritonitis. She was started on antibiotics, treated with IV zosyn and vancomycin x [address] of her abdomen demonstrated some infarcted regions on her liver and spleen. Records from her stay at [facility] 1 mo ago show the same infarcts. She has no history of blood clots, cancer, or arrhythmias. No thrombus was indentified on imaging but since this was concerning for some hypercoagulable state/clotting, it was felt by our service and nephrology that she could benefit from systemic anticoagulation with (renally dosed) Eliquis. Echocardiogram obtained and detailed below, but showed no cardioembolic source. The etiology of these infarcts are unclear at this time. They may be related to the elevated WBC in peritoneal fluid. After her admission at [facility], she followed up with Dr Jimenez with EGD 06/04/19 which demonstrated mild gastritis. She was instructed again at this discharge to follow up with Dr Jimenez, and of course her medication aide Dr Mosley. Her abdominal pain resolved prior to discharge and she was tolerating dialysis well, tolerating a renal diet without nausea, vomiting or abdominal pain. She was hemodynamically stable for discharge 07/10/19. Consultation: - Neprology - Dr Garcia (2) Splenic infarction: Code(s): D73.5 - Infarction of spleen Status: Acute Assessment and Plan: CT shows scattered liver and splenic hypodense regions, consistent with infarctions. No thrombus visualized. Unsure when infarct occurred. May 31, 2019 admitted to [facility] with colitis and these same lesions were seen on abdominal MRI at that time as well. She was seen by gastroenterology Dr Jimenez 1 month ago during that admission and was instructed to follow up with GI as an outpatient for this and some delayed emptying on a gastric emptying study. She has no pain in this region. Etiology unclear; no h/o VTE, cancer, or cardiac arrhythmias. Echo noted below. At this point being asymptomatic would recommend she follow up as an outpatient with her established GI from [facility]. Start Eliquis 2.5mg PO BID (renal dosing). (3) Infarction of liver: Code(s): K76.3 - Infarction of liver Status: Acute Assessment and Plan: See above. (4) History of colitis: Code(s): Z87.19 - Personal history of other diseases of the digestive system Status: Acute Assessment and Plan: Treated with a course of antibiotics, admitted 05/30 - 06/02/2019 at [facility] for colitis. 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 H&H low but stable. No evidence of acute bleeding. (6) Diabetes mellitus with hyperglycemia, with long-term current use of insulin:
--- NOTE | 2019-07-10 11:46 | PM.PNNEP ---
Progress Note: A&P Assessment and Plan (1) End-stage renal disease (ESRD): Code(s): N18.6 - End stage renal disease Status: Chronic Assessment and Plan: does BOTH peritoneal and hemodialysis This is because of difficulty with controlling volume. She is close to her baseline swelling. Continues peritoneal dialysis. (2) High peritoneal fluid white blood cell count: Code(s): R85.89 - Other abnormal findings in specimens from digestive organs and abdominal cavity Status: Acute Assessment and Plan: PD fluid analysis highly suggestive of peritonitis - patient states first CAPD exchange at home is always cloudy but clears over the course of the day PD fluid cultures negative. Blood cultures negative so far. on IV antibiotics Repeat white blood cell count shows a normal value. Etiology of the leukocytosis is unclear. It was mostly neutrophils. Since no eosinophils this rules out an allergy. Since no monocytes this rules out some viral issue. Neutrophilia in the PD fluid is often bacterial. But her cultures were negative. She was not on antibiotics before the sample was taken. I suppose this could be some sort of sample error and so she is on antibiotics just in case. I worry that her sterile peritonitis might have been something else. She does have thrombi in her spleen and liver. This could be embolic and so an echocardiogram was done but this was negative. In situ thrombosis is possible with such issues as protein C or S deficiency, factor V leiden antibody , or antiphospholipid antibody. We can do some testing on this. If this happened then possibly she had a shower of emboli/thrombosis before when she was at [facility] and possibly that might have caused her colitis. And then another shower of emboli/thrombosis this time causing more subtle ischemic damage to her large or small colon And a sympathetic leukocytosis in the peritoneal fluid. I think we should probably use anticoagulation until this gets figured out. The patient's agrees with this idea. She has not had any bleeding in the past. She has not had any clotting in the past although she did have a stroke long ago but this was not a hemorrhagic stroke. Long discussion with the patient and with CHARLES Bee. She will investigate what options are available for anticoagulation. I will discuss with Dr. Mosley. 30 minutes were spent in discussions with patient and hospitalist apart from clinical activity. (3) Hyponatremia: Code(s): E87.1 - Hypo-osmolality and hyponatremia Status: Chronic Assessment and Plan: related to renal failure and propensity for fluid retention fluid removal with PD and HD as tolerated Just barely low today. (4) Infarction of liver: Code(s): K76.3 - Infarction of liver Status: Acute Assessment and Plan: confirmed by repeat imaging etiology??? Is this a possible explanation of PD fluid leukocytosis? (5) Hypertension: Qualifiers: Hypertension type: essential hypertension Qualified Code(s): I10 - Essential (primary) hypertension Code(s): I10 - Essential (primary) hypertension Status: Chronic Assessment and Plan: continue home BP medications Much of the fluid is removed but her blood pressure is still high. She is currently on carvedilol, losartan. Will change losartan to irbesartan. (6) Diabetes: Code(s): E11.9 - Type 2 diabetes mellitus without complications Status: Acute Assessment and Plan: suboptimal control at baseline (last A1c elevated) etiology of ESRD on SSI and Lantus Additional Plan Subjective Date/time seen: 07/10/19 11:46 Interval history: Kelley feels about the same today. Swelling is doing well. Fluid is clear. No belly pain. Review of Systems Cardiovascular: Cardiovascular: Reports no additional cardiovascular complaints Respiratory: Respiratory:
[2019-07-10 12:16] LABS: Glucose Point of Care 209 (65-105)
[2019-07-10 14:00] VITALS: BP 148/62; PULSE 73; RESP 14; TEMP 36.6; O2SAT 100
[2019-07-12 20:32] LABS: Lupus dRVVT 1:1 Mix Interpreta Not Indicated; Lupus dRVVT Screen 35 sec (<=45); PTT-LA Screen 34 sec (<=40)
== END 2019-07-10 16:30 | disposition home or self-care (01) | DRG 947 ==
LOC: ANHED 16:18 → ANH3MEDSUR 17:16
PROVIDERS: Internal Medicine; Internal Medicine Nephrology; Physician Assistant; Admitting Provider Internal Medicine; Emergency Provider Emergency Medicine; PCP Internal Medicine; Visit Provider Physician Assistant
DX: R85.89 Other abnormal findings in specimens from digestive organs and abdominal cavity (principal); N18.6 End stage renal disease; L03.116 Cellulitis of left lower limb; L03.115 Cellulitis of right lower limb; E87.1 Hypo-osmolality and hyponatremia; I12.0 Hypertensive chronic kidney disease with stage 5 chronic kidney disease or end stage renal disease; R16.0 Hepatomegaly, not elsewhere classified; D53.1 Other megaloblastic anemias, not elsewhere classified; Z99.2 Dependence on renal dialysis; E11.65 Type 2 diabetes mellitus with hyperglycemia; Z79.4 Long term (current) use of insulin; D63.1 Anemia in chronic kidney disease; E11.22 Type 2 diabetes mellitus with diabetic chronic kidney disease; D73.5 Infarction of spleen; E78.00 Pure hypercholesterolemia, unspecified; Z98.41 Cataract extraction status, right eye; Z98.42 Cataract extraction status, left eye; Z90.710 Acquired absence of both cervix and uterus; Z90.79 Acquired absence of other genital organ(s); Z90.722 Acquired absence of ovaries, bilateral; E11.43 Type 2 diabetes mellitus with diabetic autonomic (poly)neuropathy; K31.84 Gastroparesis
CPT/HCPCS: 36415; 51701; 71045; 74176; 74177; 80048; 80053; 80069; 80076; 80202; 81001; 82607; 82728; 82746; 83010; 83036; 83540; 83550; 83605; 83615; 83690; 84155; 84165; 84443; 84466; 85025; 85027; 85046; 85055; 85303; 85306; 85610; 85613; 85652; 85730; 86140; 87040; 87070; 87075; 87205; 87804; 88108; 89051; 90945; 93306; 96361; 96365; 96367; 96375; 97161; 97165; 99285; A9270; G0257; J0360; J1644; J1815; J2270; J2543; J3370; J7030; Q4081; Q9967

== ENCOUNTER 2020-09-07 12:18 | Inpatient (IN) | payer MEDICARE, MEDICAID, SELFPAY ==
--- NOTE | ~2020-09-07 | US_ITS ---
EXAMINATION: US arterial ankle brachial ind DATE: 09/08/2020 14:53 INDICATION: Wound to the bilateral feet. Lower limb pain. TECHNIQUE: Segmental pressures and plethysmographic and Doppler waveforms of the brachial and lower e xtremity arteries were obtained. COMPARISON: None. FINDINGS: Right and left brachial artery pressures are unable to be obtained on the left due to prior fistula p lacement and on the right due to inability to occlude the vessel. The bilateral posterior tibial and dorsalis pedis arteries at the ankles were also unable to be occluded precluding assessment of ankle- brachial indices. There are brisk systolic upstrokes at the bilateral posterior tibial and dorsalis p cecile arteries. Right and left great toe pressures measured 41 mm Hg and 66 mm Hg, respectively. IMPRESSION: 1. Ankle-brachial indices are unable to be obtained due to inability to occlude the right brachial ar lala as well as the arteries of both ankles and left brachial artery unable to be assessed due to the presence of a dialysis fistula. 2. Right and left great toe pressures measured 41 mm Hg and 66 mm Hg, respectively and presystolic up strokes at the bilateral posterior tibial and dorsalis pedis arteries. Reviewed, dictated and finalized at location A. IMPRESSION: 1. Ankle-brachial indices are unable to be obtained due to inability to occlude the right brachial artery as well as the arteries of both ankles and left brac hial artery unable to be assessed due to the presence of a dialysis fistula. 2. Right and left great toe pressures measured 41 mm Hg and 66 mm Hg, respectiv dori and presystolic upstrokes at the bilateral posterior tibial and dorsalis pe dis arteries.
--- NOTE | ~2020-09-07 | XR_ITS ---
EXAMINATION: XR foot RT min 3V DATE: 09/07/2020 14:28 INDICATION: Plantar foot wound, history of diabetes TECHNIQUE: Dorsoplantar, lateral, and 2 oblique views of the right foot were obtained on five radiogr aphs. COMPARISON: None. FINDINGS: There is diffuse osteopenia of the foot. There appears to be a plantar soft tissue ulcerati on projecting caudal to the metatarsals. No fracture is identified. There is moderate to severe osteo arthritis of multiple interphalangeal joints. Calcified atherosclerosis is noted. IMPRESSION: 1. Likely plantar soft tissue ulceration of the foot. Reviewed, dictated and finalized at location A.
--- NOTE | ~2020-09-07 | MR_ITS ---
EXAMINATION: MR foot RT wo con DATE: 09/08/2020 15:40 INDICATION: Diabetic ulcer at the plantar aspect of the right foot. TECHNIQUE: Magnetic resonance imaging (MRI) of the right foot was performed without intravenous contr ast. Sequences included long axis, short axis, and sagittal T2-weighted FS FSE and T1-weighted FSE. COMPARISON: Right foot radiographs 09/07/2020 FINDINGS: Bone alignment is normal. No acute fracture. There is an old healed fracture of neck of fou rth metatarsal. There is mild osteoarthritis of first metatarsophalangeal joint and many of the midfo ot joints and interphalangeal joints. There is severe osteoarthritis of first interphalangeal joint. Lisfranc ligament is intact. There is subcutaneous edema in the foot, worst at the plantar aspect. Th ere is variable fat replacement of the musculature. There is widespread increased T2-weighted signal intensity in the musculature, likely predominantly subacute on chronic denervation. The tendons are u nremarkable. IMPRESSION: 1. No evidence of osteomyelitis. Reviewed, dictated and finalized at location A.
--- NOTE | ~2020-09-07 | US_ITS ---
EXAMINATION: US venous doppler [facility] DATE: 09/08/2020 14:53 INDICATION: Bilateral foot wounds TECHNIQUE: Gibson scale images without and with compression and Doppler images of the bilateral lower e xtremity veins were obtained. COMPARISON: None FINDINGS: The right common femoral vein, profunda femoral vein, femoral vein, popliteal vein, peroneal trunk, p osterior tibial veins, and greater saphenous vein are patent. The left common femoral vein, profunda femoral vein, femoral vein, popliteal vein, peroneal trunk, po sterior tibial veins, and greater saphenous vein are patent. IMPRESSION: 1. Patent bilateral lower extremity veins. No evidence of deep venous thrombosis. Reviewed, dictated and finalized at location A. IMPRESSION: 1. Patent bilateral lower extremity veins. No evidence of deep venous thrombosi s.
[2020-09-07 12:35] VITALS: BP 142/47; PULSE 67; RESP 16; TEMP 36.6; O2SAT 94
[2020-09-07 14:00] VITALS: BP 161/71; PULSE 69; RESP 18; O2SAT 96
[2020-09-07 14:21] LABS: Basophils Absolute Auto 0.1 K/mm3 (0.0-0.1); Basophils Percent Auto 0.2 % (0.2-1.2); Eosinophils Percent Auto 0.1 % (0-4.4); Hematocrit 33.8 % (37.0-47.0); Hemoglobin 10.8 g/dL (12.0-15.0); Immature Granulocyte Absolute 0.31 K/mm3 (0.00-0.031); Immature Granulocyte Percent A 1.2 % (0-0.5); Lymphocytes Absolute Auto 0.41 K/mm3 (0.9-3.2); Lymphocytes Percent Auto 1.5 % (18.3-44.2); Mean Corpuscular Hemoglobin 31.2 pg (26-34); Mean Corpuscular Volume 97.7 fl (80-100); Mean Platelet Volume 10.8 fl (7.4-10.4); Monocytes Absolute Auto 0.9 K/mm3 (0.1-0.6); Monocytes Percent Auto 3.5 % (2.6-8.5); Neutrophils Absolute Auto 24.9 K/mm3 (1.3-6.7); Neutrophils Percent Auto 93.5 % (45.5-73.1); Platelet Count Result 301 k/mm3 (150-375); Red Blood Count 3.46 M/mm3 (4.2-5.4); Red Cell Distribution Width 15.8 % (11.5-14.5); White Blood Count 26.7 K/mm3 (4.5-10.0)
[2020-09-07 14:36] LABS: Alanine Aminotransferase 23 U/L (4-35); Albumin Level 3.8 g/dL (3.5-5.1); Alkaline Phosphatase 225 U/L (38-126); Anion Gap 13 mmol/L (8-16); Aspartate Amino Transferase 39 U/L (14-36); Bilirubin,Total 1.8 mg/dL (0.2-1.3); Blood Urea Nitrogen 46 mg/dL (7-17); Calcium 9.3 mg/dL (8.4-10.2); Carbon Dioxide 28 mmol/L (22-30); Chloride 87 mmol/L (98-107); Estimated CRCL calculation 9 ml/min; Estimated Glomerular Filt Rate 7; Glucose 194 mg/dL (65-105); Magnesium 2.2 mg/dL (1.6-2.3); Phosphorus 5.6 mg/dL (2.5-4.5); Potassium 4.8 mmol/L (3.4-5.0); Sodium 128 mmol/L (137-145)
[2020-09-07] MEDS: MORPHINE SULFATE (*CRX) 4 MG/ML INJ IV PUSH (14:38)
[2020-09-07 14:39] LABS: Beta-Hydroxybutyrate/Acetoacetate 0.66 mmol/L (0.02-0.27)
[2020-09-07 14:58] LABS: CRP 32.3 mg/dL (<1.0)
--- NOTE | 2020-09-07 16:29 | ED.GENADULT ---
HPI - General Adult General Chief complaint: Wound/Laceration Stated complaint: Wound bottom of l foot Time Seen by Provider: 09/07/20 14:08 Source: patient, family, RN notes reviewed and old records reviewed Mode of arrival: ambulatory Limitations: no limitations History of Present Illness HPI narrative: Patient is 70-year-old female who presents to emergency department for evaluation of wound to the bottom of the right foot which has been present for over 2 weeks patient was seen by her fireboat operator today who referred her to the ER for further evaluation patient on arrival notes moderate aching pain to the bottom of the foot at the location of the ulcer patient has been treated with antibiotics and specialized shoes for her wound but continues to have worsening condition was sent to ER for consideration of IV therapy by her fireboat operator patient on arrival is in the room in no distress. Patient has multiple comorbidities. Patient last had dialysis on Sunday and was planning to have it today but was unable to do so given her referral to the ER. Patient on arrival denies other injuries or complaints or recent illness Related Data Home Medications Medication Instructions Recorded Confirmed allopurinol [Zyloprim] 100 mg PO DAILY 05/30/19 07/04/19 bupropion HCl [Wellbutrin SR] 150 mg PO DAILY 05/30/19 07/04/19 calcium acetate(phosphat bind) 667 mg PO BID 05/30/19 07/04/19 carvedilol [Coreg] 25 mg PO BID 05/30/19 07/04/19 cholecalciferol (vitamin D3) 5,000 unit PO BID 05/30/19 07/04/19 [Vitamin D3] insulin lispro [Humalog U-100 0 sliding scale dose SUBCUT TID 05/30/19 07/04/19 Insulin] amlodipine 09/07/20 atorvastatin 09/07/20 buspirone mg 09/07/20 losartan 100 mg PO DAILY 09/07/20 Allergies Allergy/AdvReac Type Severity Reaction Status Date / Time No Known Allergies Allergy Mild Verified 09/07/20 14:06 Review of Systems Review of Systems: All systems reviewed & are unremarkable except as noted in HPI and below PMFSH Past Medical History Medical History Anxiety and depression Benign thyroid cyst Evaluated by ultrasound a couple of years ago per patient report Chronic venous stasis dermatitis of both lower extremities CVA (cerebral vascular accident) Due to embolic event following a shoulder fracture 2016 with chronic mild left-sided weakness Diabetes Diabetes mellitus with diabetic nephropathy Diabetic gastroparesis Diabetic neuropathy, type II diabetes mellitus Diabetic retinopathy of both eyes End stage renal disease The patient has required dialysis for 3 years. She was on hemodialysis for 2 years but has been on peritoneal dialysis for right at a year currently. Her sat instructor is Dr. Mosley GERD (gastroesophageal reflux disease) With EGD March 2019 performed by [facility] Hypercholesterolemia Hyperlipidemia Hypertension Morbid obesity Peritoneal dialysis catheter fitting or adjustment Retinal detachment Surgical History Surgical History History of bilateral cataract extraction 2009 History of total hysterectomy with bilateral salpingo-oophorectomy (BSO) Due to benign ovarian mass Proliferative diabetic retinopathy with history of surgery Status post glaucoma surgery Surgically constructed arteriovenous fistula 2016 Family History Family History (Updated 07/05/19 @ 11:51 by Petra Thompson MD) Sibling Family history of alcoholism Mother Metastatic colon cancer in female Father Cancer Of the neck due to chemical exposure Son Heroin overdose Her youngest son Motor vehicle collision Her 2nd youngest son Other Hypertension Social History Social History Social History: Code status: Full code Smoking status: Never smoker Second hand tobacco smoke exposure: No
[2020-09-07 17:43] VITALS: BP 161/71; PULSE 70; RESP 18; O2SAT 96
[2020-09-07 18:10] VITALS: BMI 49.8
[2020-09-07 18:39] VITALS: BP 106/42; PULSE 69; RESP 18; TEMP 36.6; O2SAT 88
[2020-09-07 18:40] VITALS: BMI 49.8
[2020-09-07 19:00] LABS: Glucose Point of Care 187 mg/dl (65-105)
[2020-09-07 20:20] VITALS: BP 106/68; PULSE 78; RESP 18; TEMP 36.6; O2SAT 97
[2020-09-07] MEDS: IMIPENEM/CILASTATIN SODIUM 200 MG in DEXTROSE 5% 100 ML 300 ML IVPB (23:12)
--- NOTE | 2020-09-07 23:39 | PM.IMHP ---
H&P: HPI History of Present Illness Date/Time: 09/07/20 23:39 this is a 70-year-old female patient who resides home alone by herself. She came into the emergency room today to be evaluated for a right foot ulcer on the bottom of her right foot. She stated it has been there for approximately 2 weeks she did see her geothermal powerplant supervisor today and he referred her to come to the emergency room. The patient has a lot of Malodorous drainage from that right foot. Cultures have been obtained in the emergency room. The patient had been started on 0 1 oral antibiotics but the patient stated that it continues to get worse. The patient has dialysis on Sunday and her last dialysis was on Sunday. The patient was not able to get dialysis today due to her coming to the emergency room. Her blood pressure is low so she was given a L of IV fluids. She was given morphine for the discomfort. She was started on Primaxin and vancomycin As per antibiotic stewardship. She is diabetic. Her white count is 26.7. Her blood sugar was 187 and then 181. Her phosphorus was 5.6. Magnesium normal. X-ray of the foot on the right side was read as likely plantar soft tissue ulceration of the foot. The patient is being admitted to inpatient services on the date of service 09/07/2020 Chief Complaint: diabetic foot ulcer Review of Systems Review of Systems: All systems reviewed & are unremarkable except as noted in HPI and below Constitutional: Constitutional: Reports as per HPI and Reports no additional constitutional complaints Eyes: Eyes: Reports as per HPI and Reports no additional eye complaints ENT: Reports system reviewed and no additional complaints, except as documented and Reports Normal hearing present Cardiovascular: Cardiovascular: Reports no additional cardiovascular complaints Respiratory: Respiratory: Reports no additional respiratory complaints and Reports no additional respiratory complaints Gastrointestinal: Gastrointestinal: Reports as per HPI and Reports no additional gastrointestinal complaints Musculoskeletal: Musculoskeletal: Reports no additional musculoskeletal complaints Integumentary/Breasts: Skin/Breast: Reports system reviewed and no additional complaints, except as docu and Reports as per HPI Neurologic: Reports system reviewed and no additional complaints, except as documented, Reports as per HPI and Reports Normal hearing present Psychiatric: Psychiatric: Reports no additional psychiatric complaints and Reports as per HPI Endocrine: Endocrine: Reports no additional endocrine complaints Hematologic/Lymphatic: Hematologic/Lymphatic: Reports no additional hematologic/lymphatic complaints Allergic/Immunologic: Allergic/Immunologic: Reports no additional allergic/immunologic complaints [facility] Past Medical History Medical History (Updated 09/07/20 @ 23:58 by Tracey Camarillo NP) Anxiety and depression Benign thyroid cyst Evaluated by ultrasound a couple of years ago per patient report Chronic venous stasis dermatitis of both lower extremities CVA (cerebral vascular accident) Due to embolic event following a shoulder fracture 2016 with chronic mild left-sided weakness Diabetes Diabetes mellitus with diabetic nephropathy Diabetic gastroparesis Diabetic neuropathy, type II diabetes mellitus Diabetic retinopathy of both eyes DVT (deep venous thrombosis) spleen and liver End stage renal disease The patient has required dialysis for 3 years. She was on hemodialysis for 2 years but has been on peritoneal dialysis for right at a year currently. Her stemhole borer and topper is Dr. Mosley GERD (gastroesophageal reflux disease) With EGD March 2019 performed by [facility] Hypercholesterolemia Hyperlipidemia Hypertension Morbid obesity Peritoneal dialysis catheter fitting or adjustment Retinal detachment Surgical History Surgical History History of bilateral cataract ex
[2020-09-07 23:40] LABS: Glucose Point of Care 181 mg/dl (65-105)
[2020-09-08] VITALS (11 sets, daily range): BP systolic 112–137; BP diastolic 50–70; PULSE 60–84; RESP 16–24; TEMP 36–37.1; O2SAT 91–96
[2020-09-08] MEDS: carvediloL 25 MG TABLET PO ×3 (00:33→22:19)
[2020-09-08] MEDS: LOSARTAN POTASSIUM 100 MG TABLET PO ×2 (00:35→22:18)
[2020-09-08] MEDS: traMADol HCL (*CRX) 50 MG TABLET PO ×2 (00:35→10:05)
[2020-09-08] MEDS: INSULIN GLARGINE (*BKC) 100 UNITS/ML 48 UNITS SUB-Q (00:36)
[2020-09-08] MEDS: MORPHINE SULFATE (*CRX) 2 MG/ML INJ IV PUSH ×4 (02:17→22:20)
[2020-09-08] MEDS: IMIPENEM/CILASTATIN SODIUM 200 MG in DEXTROSE 5% 100 ML 300 ML IVPB ×4 (05:40→23:12)
[2020-09-08 05:49] LABS: Basophils Absolute Auto 0.1 K/mm3 (0.0-0.1); Basophils Percent Auto 0.2 % (0.2-1.2); Eosinophils Absolute Auto 0.1 K/mm3 (0-0.3); Eosinophils Percent Auto 0.3 % (0-4.4); Immature Granulocyte Absolute 0.25 K/mm3 (0.00-0.031); Lymphocytes Absolute Auto 0.63 K/mm3 (0.9-3.2); Lymphocytes Percent Auto 2.5 % (18.3-44.2); Mean Corpuscular HGB Conc 33.3 g/dl (32-36); Mean Corpuscular Hemoglobin 31.4 pg (26-34); Mean Corpuscular Volume 94.3 fl (80-100); Mean Platelet Volume 10.9 fl (7.4-10.4); Monocytes Absolute Auto 0.8 K/mm3 (0.1-0.6); Monocytes Percent Auto 3.3 % (2.6-8.5); Neutrophils Absolute Auto 23.4 K/mm3 (1.3-6.7); Neutrophils Percent Auto 92.7 % (45.5-73.1); Platelet Count Result 279 k/mm3 (150-375); Red Blood Count 3.18 M/mm3 (4.2-5.4); Red Cell Distribution Width 15.8 % (11.5-14.5); White Blood Count 25.3 K/mm3 (4.5-10.0)
[2020-09-08 05:57] LABS: Hemoglobin A1C 8.9 % (<5.7)
[2020-09-08 06:00] LABS: Anion Gap 11 mmol/L (8-16); Blood Urea Nitrogen 46 mg/dL (7-17); Calcium 9.1 mg/dL (8.4-10.2); Carbon Dioxide 28 mmol/L (22-30); Chloride 88 mmol/L (98-107); Estimated CRCL calculation 9 ml/min; Estimated Glomerular Filt Rate 6; Glucose 115 mg/dL (65-105); Potassium 4.6 mmol/L (3.4-5.0); Sodium 127 mmol/L (137-145)
[2020-09-08] MEDS: amLODIPine BESYLATE 5 MG TABLET 10 MG PO (09:42)
[2020-09-08] MEDS: CALCIUM ACETATE 667 MG TABLET PO ×3 (09:42→17:23)
[2020-09-08] MEDS: buPROPion HCL SR (12 HR) 150 MG TAB PO (09:42)
[2020-09-08] MEDS: busPIRone HCL 5 MG TABLET 15 MG PO ×2 (09:42→17:23)
[2020-09-08] MEDS: ATORVASTATIN 20 MG TABLET PO (09:43)
[2020-09-08] MEDS: APIXABAN 2.5 MG TABLET PO ×2 (09:43→17:23)
[2020-09-08] MEDS: allopurinoL 100 MG TABLET PO (09:44)
[2020-09-08 09:51] LABS: Glucose Point of Care 86 mg/dl (65-105)
--- NOTE | 2020-09-08 11:29 | PC.NURSE ---
Patient transported to dialysis room
[2020-09-08 11:36] LABS: Hepatitis B Surface Antigen Negative (Negative)
[2020-09-08 11:53] LABS: Hepatitis B Surface Anti Res Negative
--- NOTE | 2020-09-08 13:04 | PM.PNNEP ---
Progress Note: A&P Assessment and Plan (1) End-stage renal disease (ESRD): Code(s): N18.6 - End stage renal disease Status: Chronic Assessment and Plan: HD today and plan HD tomorrow to get her back on her //Sunday schedule follow electrolytes, volume status and clearance FULL CONSULT to follow Subjective Date/time seen: 09/08/20 13:04 Tolerating dialysis treatment at the time of my visit (seen on HD at 12:35PM); no acute issues or problems to report at this time; no apparent distress voiced. Exam Narrative: Exam Narrative: General: WD/WN female in NAD Heart: normal S1 and S2; no rub Lungs: clear to auscultation Abdomen: soft, nontender, nondistended, positive bowel sounds Extremities: no cyanosis or clubbing; trace - 1+ edema Skin: right foot wound noted Objective Data Vital Signs Vital Signs: Vital Signs Temp Pulse Resp BP Pulse Ox 09/08/20 12:30 60 123/55 L 09/08/20 12:13 37.1 C 60 18 137/60 09/08/20 11:34 62 135/56 L 09/08/20 09:42 70 09/08/20 06:19 36.3 C L 67 24 H 117/50 L 92 09/08/20 00:33 70 09/07/20 20:20 36.6 C 78 18 106/68 97 09/07/20 18:39 36.6 C 69 18 106/42 L 88 L 09/07/20 17:43 70 18 161/71 H 96 09/07/20 14:00 69 18 161/71 H 96 Intake/Output Intake/Output: Intake & Output 09/05/20 09/06/20 09/07/20 09/08/20 23:59 23:59 23:59 23:59 Intake Total 700 290 Balance 700 290 Meds/Results Medications: Active Medications Generic Name Dose Route Start Last Admin Trade Name Freq PRN Reason Stop Dose Admin Allopurinol 100 mg 09/08/20 08:00 09/08/20 09:44 Allopurinol 100 Mg Tablet PO 100 mg DAILY@0800 MICHELL Administration Amlodipine Besylate 10 mg 09/08/20 09:00 09/08/20 09:42 Amlodipine Besylate 5 Mg Tablet PO 10 mg DAILY MICHELL Administration Apixaban 2.5 mg 09/08/20 09:00 09/08/20 09:43 Apixaban 2.5 Mg Tablet PO 2.5 mg BID MICHELL Administration Atorvastatin Calcium 20 mg 09/08/20 09:00 09/08/20 09:43 Atorvastatin 20 Mg Tablet PO 20 mg DAILY MICHELL Administration Bupropion HCl 150 mg 09/08/20 09:00 09/08/20 09:42 Bupropion Hcl Sr (12 Hr) 150 Mg Tab PO 150 mg DAILY MICHELL Administration Buspirone HCl 15 mg 09/08/20 09:00 09/08/20 09:42 Buspirone Hcl 5 Mg Tablet PO 15 mg BID MICHELL Administration Calcium Acetate 667 mg 09/08/20 09:00 09/08/20 09:42 Calcium Acetate 667 Mg Tablet PO 667 mg TID MICHELL Administration Carvedilol 25 mg 09/07/20 23:55 09/08/20 09:42 Carvedilol 25 Mg Tablet PO 25 mg Q12HR MICHELL Administration Dextrose 12.5 gm 09/07/20 23:54 Dextrose 50% 25 Gm/50 Ml Syringe IV PUSH PRN PRN Hypoglycemia Protocol Famotidine 20 mg 09/08/20 09:00 Famotidine 20 Mg/2 Ml Vial IV PUSH DAILY PRN AFTER DIALYSIS Glucagon 1 mg 09/07/20 23:54 Glucagon For Inj 1 Mg Vial IM PRN PRN Hypoglycemia Protocol Glucose 15 gm 09/07/20 23:54 Glucose Oral Gel 15 Gm Of Glucse In 37.5 Gm Tube PO PRN PRN Hypoglycemia Protocol Vancomycin HCl 1,500 mg in 500 mls @ 333.333 mls/hr 09/07/20 14:41 Vancomycin 1,500 Mg/D5w 500 Ml IVPB PRN PRN vancomycin protocol Acetaminophen 1,000 mg in 100 mls @ 400 mls/hr 09/07/20 17:00 Ofirmev 1,000 Mg Ivpb IVPB 09/08/20 17:01 Q6H PRN Mild Pain (1-3) or Fever Imipenem/Cilastatin Sodium 200 100 mls @ 300 mls/hr 09/08/20 00:00 09/08/20 06:00 mg/ Dextrose IVPB Infused Q6H MICHELL Infusion Dextrose 1,000 mls @ 100 mls/hr 09/07/20 23:54 Dextrose 5% 1,000 Ml IVPB PRN PRN Hypoglycemia Protocol Albumin Human 50 mls @ 999 mls/hr 09/08/20 06:35 Albutein IVPB 10/08/20 06:36 Q10M PRN HYPOTENSION Insulin Aspart 3 - 6 units 09/08/20 08:00 09/08/20 10:03 Insulin Aspart (*Bkc) 100 Units/Ml SUB-Q Not Given TIDWM MICHELL Protocol Insulin Glargine 48 u
[2020-09-08] MEDS: FAMOTIDINE 20 MG/2 ML VIAL IV PUSH (13:32)
[2020-09-08 13:37] LABS: Glucose Point of Care 75 mg/dl (65-105)
--- NOTE | 2020-09-08 16:53 | PM.IMHP ---
H&P: HPI History of Present Illness Date/Time: 09/08/20 16:53 Patient seen at bedside resting comfortably. The patient was admitted due to abscess/cellulitis of the right foot. I attempted to manage the wound as an outpatient with oral antibiotic. The ulceration progressively became more red and swollen until she followed up in my office I recommended ER admit. Today she is feeling less pain to the right foot. She has an ulcer present to the right foot. She is diabetic and states that she is no longer having F/C/N/V. No SOB. Chief Complaint: Abscess of right foot [facility] Past Medical History Medical History (Updated 09/07/20 @ 23:58 by Tracey Camarillo NP) Anxiety and depression Benign thyroid cyst Evaluated by ultrasound a couple of years ago per patient report Chronic venous stasis dermatitis of both lower extremities CVA (cerebral vascular accident) Due to embolic event following a shoulder fracture 2015 with chronic mild left-sided weakness Diabetes Diabetes mellitus with diabetic nephropathy Diabetic gastroparesis Diabetic neuropathy, type II diabetes mellitus Diabetic retinopathy of both eyes DVT (deep venous thrombosis) spleen and liver End stage renal disease The patient has required dialysis for 3 years. She was on hemodialysis for 2 years but has been on peritoneal dialysis for right at a year currently. Her welder manufacture is Dr. Mosley GERD (gastroesophageal reflux disease) With EGD March 2019 performed by [facility] Hypercholesterolemia Hyperlipidemia Hypertension Morbid obesity Peritoneal dialysis catheter fitting or adjustment Retinal detachment Surgical History Surgical History History of bilateral cataract extraction 2009 History of total hysterectomy with bilateral salpingo-oophorectomy (BSO) Due to benign ovarian mass Proliferative diabetic retinopathy with history of surgery Status post glaucoma surgery Surgically constructed arteriovenous fistula 2015 Family History Family History Sibling Family history of alcoholism Mother Metastatic colon cancer in female Father Cancer Of the neck due to chemical exposure Son Heroin overdose Her youngest son Motor vehicle collision Her 2nd youngest son Other Hypertension Social History Social History (Updated 09/07/20 @ 23:45 by Tracey Camarillo NP) Social History: Code status: Full code Smoking status: Never smoker Second hand tobacco smoke exposure: No Alcohol intake: never Substance use: current Additional living arrangements comments: She lives alone as her recently has . She had a total of 4 sons. Her 2 oldest sons are still living and are relatively healthy. 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 Gender identity (if verbalized by the patient): Female Spiritual care concerns: No Agree to blood products: Yes Meds Home Medications and Allergies Home Medications Medication Instructions Recorded Confirmed Type allopurinol [Zyloprim] 100 mg PO DAILY 05/30/19 09/07/20 History bupropion HCl [Wellbutrin SR] 150 mg PO DAILY 05/30/19 09/07/20 History calcium acetate(phosphat bind) 667 mg PO TID 05/30/19 09/07/20 History carvedilol [Coreg] 25 mg PO BID 05/30/19 09/07/20 History insulin lispro [Humalog U-100 0 sliding scale dose SUBCUT TID 05/30/19 09/07/20 History Insulin] apixaban [Eliquis] 2.5 mg PO BID 30 Days #60 tablet 07/10/19 09/07/20 Rx amlodipine 10 mg PO DAILY 09/07/20 09/07/20 History atorvastatin 20 mg PO DAILY 09/07/20 09/07/20 History buspirone 15 mg PO BID 09/07/20 09/07/20 History cranberry 400 mg PO DAILY 09/07/20 09/07/20 History ferrous sulfate 27 mg PO DAILY 09/07/20 09/07/20 History insulin degludec [Tresiba U-100 48
[2020-09-08 17:38] LABS: Glucose Point of Care 124 mg/dl (65-105)
--- NOTE | 2020-09-08 18:08 | PM.IMPN ---
Progress Note: A&P Assessment and Plan (1) Diabetic foot ulcer: Code(s): E11.621 - Type 2 diabetes mellitus with foot ulcer; L97.509 - Non-pressure chronic ulcer of other part of unspecified foot with unspecified severity Status: Acute Assessment and Plan: as per diabetic stewardship patient was started on Primaxin and vancomycin. Blood and wound cultures have been taken. Dr. Root was notified and agreed to see the patient. An MRI is ordered for that right foot. 09/08/20 18:08 Patient is 70-year-old female with history of end-stage renal disease on hemodialysis, history of diabetes, had developed right foot ulcer and was seen by her supervisor reinforced steel placing started on oral antibiotic but the wound was not healing it was more pain and erythematous, MRI of the foot did not show any osteomyelitis, patient is started on imipenem and vancomycin, patient be seen by her supervisor reinforced steel placing further recommendation to follow. (2) Splenic infarction: Code(s): D73.5 - Infarction of spleen Status: Acute Assessment and Plan: Patient is on Eliquis will continue without. (3) Infarction of liver: Code(s): K76.3 - Infarction of liver Status: Acute Assessment and Plan: Continue with Eliquis. (4) Hypertension: Qualifiers: Hypertension type: essential hypertension Qualified Code(s): I10 - Essential (primary) hypertension Code(s): I10 - Essential (primary) hypertension Status: Chronic Assessment and Plan: Patient is slightly hypotensive at this time. On not sure if it is due to the pain medication of the infection. Her home medications were restarted for tomorrow morning. It looks like she is on Coreg and losartan and amlodipine. monitor electrolytes. (5) Diabetes: Code(s): E11.9 - Type 2 diabetes mellitus without complications Status: Acute Assessment and Plan: Accu-Cheks AC and HS. Continue with basal insulin Check A1c (6) End-stage renal disease on peritoneal dialysis: Code(s): N18.6 - End stage renal disease; Z99.2 - Dependence on renal dialysis Status: Acute Assessment and Plan: the patient used 6 do peritoneal dialysis but then developed peritonitis. She is now on hemodialysis Sunday. She has a positive bruit and thrill to their left AV fistula. A looks like her phosphorus levels been running high. Further recommendations per Nephrology. the patient is on a phosphate binder. (7) Diabetes mellitus with hyperglycemia, with long-term current use of insulin: Qualifiers: Diabetes mellitus type: type 2 Qualified Code(s): E11.65 - Type 2 diabetes mellitus with hyperglycemia; Z79.4 - half-way (current) use of insulin Code(s): E11.65 - Type 2 diabetes mellitus with hyperglycemia; Z79.4 - half-way (current) use of insulin Status: Acute Assessment and Plan: Accu-Cheks AC and HS. Continue with basal insulin Check A1c . I mentioned that her blood sugars will be elevated now that she has an infection. (8) Anxiety and depression: Code(s): F41.9 - Anxiety disorder, unspecified; F32.9 - Major depressive disorder, single episode, unspecified Status: Chronic Assessment and Plan: Continue with BuSpar Subjective Date/time seen: 09/08/20 18:08 Patient is 70-year-old female with history of end-stage renal disease on hemodialysis, history of diabetes, had developed right foot ulcer and was seen by her supervisor reinforced steel placing started on oral antibiotic but the wound was not healing it was more pain and erythematous, MRI of the foot did not show any osteomyelitis, patient is started on imipenem and vancomycin, patient be seen by her supervisor reinforced steel placing further recommendation to follow. Review of Systems Review of Systems: All systems reviewed & are unremarkable except as noted in HPI and below Exam Narrative: Exam Narrative: Morbidly obese Patient is comfortable, NAD HEENT: eyes are c
[2020-09-08 22:31] LABS: Glucose Point of Care 76 mg/dl (65-105)
[2020-09-09] VITALS (22 sets, daily range): BP systolic 115–149; BP diastolic 52–86; PULSE 57–67; RESP 18; TEMP 36.4–37; O2SAT 92–96
[2020-09-09 00:38] LABS: Glucose Point of Care 121 mg/dl (65-105)
[2020-09-09] MEDS: IMIPENEM/CILASTATIN SODIUM 200 MG in DEXTROSE 5% 100 ML 300 MG IVPB ×3 (05:30→17:46)
[2020-09-09] MEDS: IMIPENEM/CILASTATIN SODIUM 200 MG in DEXTROSE 5% 100 ML 300 ML IVPB (05:40)
[2020-09-09 06:01] LABS: Basophils Absolute Auto 0.1 K/mm3 (0.0-0.1); Basophils Percent Auto 0.4 % (0.2-1.2); Eosinophils Absolute Auto 0.3 K/mm3 (0-0.3); Eosinophils Percent Auto 1.5 % (0-4.4); Hematocrit 32.5 % (37.0-47.0); Hemoglobin 10.2 g/dL (12.0-15.0); Immature Granulocyte Absolute 0.45 K/mm3 (0.00-0.031); Lymphocytes Absolute Auto 0.77 K/mm3 (0.9-3.2); Lymphocytes Percent Auto 3.4 % (18.3-44.2); Mean Corpuscular HGB Conc 31.4 g/dl (32-36); Mean Corpuscular Hemoglobin 31.5 pg (26-34); Mean Corpuscular Volume 100.3 fl (80-100); Mean Platelet Volume 10.8 fl (7.4-10.4); Monocytes Absolute Auto 0.9 K/mm3 (0.1-0.6); Monocytes Percent Auto 3.9 % (2.6-8.5); Neutrophils Absolute Auto 19.9 K/mm3 (1.3-6.7); Neutrophils Percent Auto 88.8 % (45.5-73.1); Platelet Count Result 275 k/mm3 (150-375); Red Blood Count 3.24 M/mm3 (4.2-5.4); Red Cell Distribution Width 16.2 % (11.5-14.5); White Blood Count 22.4 K/mm3 (4.5-10.0)
[2020-09-09 06:06] LABS: Alanine Aminotransferase 66 U/L (4-35); Albumin Level 3.1 g/dL (3.5-5.1); Alkaline Phosphatase 173 U/L (38-126); Anion Gap 9 mmol/L (8-16); Aspartate Amino Transferase 94 U/L (14-36); Bilirubin,Total 0.9 mg/dL (0.2-1.3); Blood Urea Nitrogen 41 mg/dL (7-17); Calcium 8.9 mg/dL (8.4-10.2); Carbon Dioxide 30 mmol/L (22-30); Chloride 91 mmol/L (98-107); Estimated CRCL calculation 10 ml/min; Estimated Glomerular Filt Rate 7; Glucose 94 mg/dL (65-105); Potassium 4.5 mmol/L (3.4-5.0); Sodium 130 mmol/L (137-145)
[2020-09-09] MEDS: MORPHINE SULFATE (*CRX) 2 MG/ML INJ IV PUSH ×2 (06:40→14:07)
--- NOTE | 2020-09-09 07:31 | WPDPN ---
Progress Note: A&P Additional Plan Diabetic neuropathic ulceration with abscess of the right foot - I performed bedside I&D without needing anesthesia. I debrided superficial necrotic tissue and drained approximately 10cc's of purulence. I flushed with sterile saline. Dressed with DSD. - I will take to OR tomorrow morning for proper Incision and debridement of the right foot with pulse lavage system and antibiotic bead packing - MRI negative for osteomyelitis, showed signficant necrotic tissue - Will continue to monitor. Dr. Salcido Exam Extrem: Ankle/foot/toe images: 1. Continued fluctuance, erythema and edema present to the right foot. 10cc of purulence expressed with I&D. Objective Data Vital Signs Vital Signs: Vital Signs - 24 hr 09/08/20 09:42 09/08/20 11:34 09/08/20 12:13 Temperature 37.1 C Pulse Rate 70 62 60 Respiratory Rate 18 Blood Pressure 135/56 L 137/60 Pulse Oximetry 09/08/20 12:30 09/08/20 15:50 09/08/20 21:16 Temperature 36.7 C 36.0 C L Pulse Rate 60 60 79 Respiratory Rate 16 18 Blood Pressure 123/55 L 112/53 L 136/70 Pulse Oximetry 91 96 09/08/20 21:55 09/08/20 22:19 09/09/20 05:46 Temperature 37.0 C Pulse Rate 84 65 Respiratory Rate 18 Blood Pressure 138/58 L Pulse Oximetry 96 93 Intake/Output Intake/Output: Intake & Output 09/06/20 09/07/20 09/08/20 09/09/20 23:59 23:59 23:59 23:59 Intake Total 700 1130 700 Balance 700 1130 700 Meds/Results Medications: Active Medications Generic Name Dose Route Start Last Admin Trade Name Freq PRN Reason Stop Dose Admin Allopurinol 100 mg 09/08/20 08:00 09/08/20 09:44 Allopurinol 100 Mg Tablet PO 100 mg DAILY@0800 MICHELL Administration Amlodipine Besylate 10 mg 09/08/20 09:00 09/08/20 09:42 Amlodipine Besylate 5 Mg Tablet PO 10 mg DAILY MICHELL Administration Apixaban 2.5 mg 09/08/20 09:00 09/08/20 17:23 Apixaban 2.5 Mg Tablet PO 2.5 mg BID MICHELL Administration Atorvastatin Calcium 20 mg 09/08/20 09:00 09/08/20 09:43 Atorvastatin 20 Mg Tablet PO 20 mg DAILY MICHELL Administration Bupropion HCl 150 mg 09/08/20 09:00 09/08/20 09:42 Bupropion Hcl Sr (12 Hr) 150 Mg Tab PO 150 mg DAILY MICHELL Administration Buspirone HCl 15 mg 09/08/20 09:00 09/08/20 17:23 Buspirone Hcl 5 Mg Tablet PO 15 mg BID MICHELL Administration Calcium Acetate 667 mg 09/08/20 09:00 09/08/20 17:23 Calcium Acetate 667 Mg Tablet PO 667 mg TID MICHELL Administration Carvedilol 25 mg 09/07/20 23:55 09/08/20 22:19 Carvedilol 25 Mg Tablet PO 25 mg Q12HR MICHELL Administration Dextrose 12.5 gm 09/07/20 23:54 Dextrose 50% 25 Gm/50 Ml Syringe IV PUSH PRN PRN Hypoglycemia Protocol Famotidine 20 mg 09/08/20 09:00 09/08/20 13:32 Famotidine 20 Mg/2 Ml Vial IV PUSH 20 mg DAILY PRN Administration AFTER DIALYSIS Glucagon 1 mg 09/07/20 23:54 Glucagon For Inj 1 Mg Vial IM PRN PRN Hypoglycemia Protocol Glucose 15 gm 09/07/20 23:54 Glucose Oral Gel 15 Gm Of Glucse In 37.5 Gm Tube PO PRN PRN Hypoglycemia Protocol Vancomycin HCl 1,500 mg in 500 mls @ 333.333 mls/hr 09/07/20 14:41 Vancomycin 1,500 Mg/D5w 500 Ml IVPB PRN PRN vancomycin protocol Dextrose 1,000 mls @ 100 mls/hr 09/07/20 23:54 Dextrose 5% 1,000 Ml IVPB PRN PRN Hypoglycemia Protocol Albumin Human 50 mls @ 999 mls/hr 09/08/20 06:35 Albutein IVPB 10/08/20 06:36 Q10M PRN HYPOTENSION Imipenem/Cilastatin Sodium 200 100 mls @ 300 mls/hr 09/09/20 06:00 09/09/20 05:50 mg/ Dextrose IVPB Infused Q6H MICHELL Infusion Insulin Aspart 3 - 6 units 09/08/20 08:00 09/08/20 19:32 Insulin Aspart (*Bkc) 100 Units/Ml SUB-Q Not Given TIDWM MICHELL Protocol Insulin Glargine 48 units 09/07/20 23:55 09/08/20 23:44 Insulin Glargine (*Bkc) 100 Units/Ml SUB-Q 10/07/20 23:56 Not Given HS MICHELL L
[2020-09-09] MEDS: carvediloL 25 MG TABLET PO ×2 (08:18→20:35)
[2020-09-09] MEDS: allopurinoL 100 MG TABLET PO (08:18)
[2020-09-09] MEDS: busPIRone HCL 5 MG TABLET 15 MG PO ×2 (08:18→17:44)
[2020-09-09] MEDS: APIXABAN 2.5 MG TABLET PO ×2 (08:19→17:44)
[2020-09-09] MEDS: ATORVASTATIN 20 MG TABLET PO (08:19)
[2020-09-09] MEDS: CALCIUM ACETATE 667 MG TABLET PO ×3 (08:19→17:44)
[2020-09-09] MEDS: amLODIPine BESYLATE 5 MG TABLET 10 MG PO (08:19)
[2020-09-09] MEDS: buPROPion HCL SR (12 HR) 150 MG TAB PO (08:19)
[2020-09-09 08:34] LABS: Glucose Point of Care 105 mg/dl (65-105)
--- NOTE | 2020-09-09 09:08 | PCOTNOTE ---
Will hold OT evaluation until after planned R foot debridement tomorrow 09/10/2020. Will follow.
--- NOTE | 2020-09-09 09:36 | PCPTNOTE ---
Will hold PT evaluation until after planned R foot debridement tomorrow 09/10/2020. Will follow. Viridiana Monet DPT
--- NOTE | 2020-09-09 13:27 | PC.NURSE ---
On 09/09/20, the student, [Priscila Harrison ], provided care and completed [facility] documentation on this patient. I have reviewed the student's documentation and agree with the findings.
[2020-09-09] MEDS: TOLNAFTATE 1% POWDER 45 GM BTL 1 APPLIC TOPICAL ×2 (14:07→20:35)
[2020-09-09 14:34] LABS: Glucose Point of Care 135 mg/dl (65-105)
--- NOTE | 2020-09-09 15:00 | PM.IMPN ---
Progress Note: A&P Assessment and Plan (1) Diabetic foot ulcer: Code(s): E11.621 - Type 2 diabetes mellitus with foot ulcer; L97.509 - Non-pressure chronic ulcer of other part of unspecified foot with unspecified severity Status: Acute Assessment and Plan: as per diabetic stewardship patient was started on Primaxin and vancomycin. Blood and wound cultures have been taken. Dr. Root was notified and agreed to see the patient. An MRI is ordered for that right foot. 09/09/20 15:00 Patient is 70-year-old female with history of end-stage renal disease on hemodialysis, history of diabetes, had developed right foot ulcer and was seen by her shotgun shell loading machine operator started on oral antibiotic but the wound was not healing it was more pain and erythematous, MRI of the foot did not show any osteomyelitis, patient is started on imipenem and vancomycin, patient be seen by her shotgun shell loading machine operator further recommendation to follow. 09/09 today patient was seen by her shotgun shell loading machine operator and had a bedside wound debridement and cleaning patient tolerated, shotgun shell loading machine operator will take the patient to OR tomorrow for proper I and D of the foot and further recommendation to follow, the wound culture is growing Proteus mirabilis sensitivities is pending will continue imipenem and vancomycin, will continue to monitor will have a PT OT evaluate the patient and further recommendation to follow. (2) Splenic infarction: Code(s): D73.5 - Infarction of spleen Status: Acute Assessment and Plan: Patient is on Eliquis will continue without. (3) Infarction of liver: Code(s): K76.3 - Infarction of liver Status: Acute Assessment and Plan: Continue with Eliquis. (4) Hypertension: Qualifiers: Hypertension type: essential hypertension Qualified Code(s): I10 - Essential (primary) hypertension Code(s): I10 - Essential (primary) hypertension Status: Chronic Assessment and Plan: Patient is slightly hypotensive at this time. On not sure if it is due to the pain medication of the infection. Her home medications were restarted for tomorrow morning. It looks like she is on Coreg and losartan and amlodipine. monitor electrolytes. (5) Diabetes: Code(s): E11.9 - Type 2 diabetes mellitus without complications Status: Acute Assessment and Plan: Accu-Cheks AC and HS. Continue with basal insulin Check A1c (6) End-stage renal disease on peritoneal dialysis: Code(s): N18.6 - End stage renal disease; Z99.2 - Dependence on renal dialysis Status: Acute Assessment and Plan: the patient used 6 do peritoneal dialysis but then developed peritonitis. She is now on hemodialysis Sunday. She has a positive bruit and thrill to their left AV fistula. A looks like her phosphorus levels been running high. Further recommendations per Nephrology. the patient is on a phosphate binder. (7) Diabetes mellitus with hyperglycemia, with long-term current use of insulin: Qualifiers: Diabetes mellitus type: type 2 Qualified Code(s): E11.65 - Type 2 diabetes mellitus with hyperglycemia; Z79.4 - terminal press operator (current) use of insulin Code(s): E11.65 - Type 2 diabetes mellitus with hyperglycemia; Z79.4 - terminal press operator (current) use of insulin Status: Acute Assessment and Plan: Accu-Cheks AC and HS. Continue with basal insulin Check A1c . I mentioned that her blood sugars will be elevated now that she has an infection. (8) Anxiety and depression: Code(s): F41.9 - Anxiety disorder, unspecified; F32.9 - Major depressive disorder, single episode, unspecified Status: Chronic Assessment and Plan: Continue with BuSpar Subjective Date/time seen: 09/09/20 15:00 Patient is 70-year-old female with history of end-stage renal disease on hemodialysis, history of diabetes, had developed right foot ulcer and was seen by her shotgun shell loading machine operator started on oral antibioti
--- NOTE | 2020-09-09 15:50 | PM.CNNEP ---
Assessment and Plan Assessment and plan (1) End-stage renal disease (ESRD): Code(s): N18.6 - End stage renal disease Status: Chronic Assessment and Plan: HD today and continue //Sunday dialysis schedule follow electrolytes, volume status, and clearance (2) Diabetic foot ulcer: Code(s): E11.621 - Type 2 diabetes mellitus with foot ulcer; L97.509 - Non-pressure chronic ulcer of other part of unspecified foot with unspecified severity Status: Acute Assessment and Plan: s/p bedside debridement plan formal I&D in OR tomorrow follow culture data (3) Hypertension: Qualifiers: Hypertension type: essential hypertension Qualified Code(s): I10 - Essential (primary) hypertension Code(s): I10 - Essential (primary) hypertension Status: Chronic Assessment and Plan: reasonable control follow trend of hemodynamics (4) Diabetes: Code(s): E11.9 - Type 2 diabetes mellitus without complications Status: Acute Assessment and Plan: follow accuchecks glycemic control Will continue to follow. History of Present Illness Reason for Consult Consult date: 09/09/20 Reason for consult: end stage renal disease Chief Complaint Chief complaint: Diabetic ulcer right foot/cellulitis History of Present Illness Narrative: The patient is a 70-year-old female with a past medical history as outlined below who presented to [facility] ER for further evaluation of a right foot ulceration/wound. The patient issue went to see her olive grader regarding this issue who subsequently referred her to the emergency room for further evaluation/treatment. The patient states that she has had this wound on her right foot for approximately 2 weeks and in that time frame it seems to have slowly worsened/deteriorated. She apparently had was started on oral antibiotic therapy for this wound but this did not seem to improve the overall condition of the problem. She is she more recently noted a malodorous drainage from that right foot wound that seemed also be progressively worsening as well. As mentioned, she went to see her olive grader for this wound initially who ultimately recommended her coming to the emergency room for IV antibiotic therapy and possible admission to the hospital. Workup and evaluation emergency room demonstrated the patient to be somewhat hypotensive but responded to IV fluid boluses. Routine blood test demonstrated labs consistent with her known history of end-stage renal disease as well. X-ray of the right foot demonstrated soft tissue ulceration with no evidence of osteomyelitis. Root her CBC was remarkable for ought elevated white blood cell count of 26.7. Given these findings in conjunction with her constellation of symptoms, appropriate cultures were obtained and she was started on broad-spectrum IV antibiotic therapy with subsequent admission to the hospital. Renal consultation was requested due to her end-stage renal disease. The patient normally dialyzes on a Sunday, , Sunday dialysis schedule under the care of Dr. Rodríguez at [facility]. Her last dialysis treatment was on Sunday and she presented to the emergency room on Sunday and hence did not receive dialysis at her outpatient unit that day. She received dialysis yesterday to make up for her missed treatment on Sunday and will get dialysis again today to get her back on to her Sunday, , Sunday dialysis schedule. She is compliant with her dialysis treatments but does admit that she is prone to chronic lymphedema sometimes making it difficult to remove all the fluid in her lower extremities. Currently, she appears to be doing somewhat better in general and received a bedside debridement of her right foot wound with a tentative plan for a formal I and D in the OR tomorrow. Review of Systems Review of Systems: Narrative: As per HPI. [facility]
[2020-09-09 17:51] LABS: Glucose Point of Care 176 mg/dl (65-105)
[2020-09-09 20:28] LABS: Vancomycin Random 7.4 ug/mL (10-20)
[2020-09-09] MEDS: LOSARTAN POTASSIUM 100 MG TABLET PO (20:35)
[2020-09-09] MEDS: INSULIN GLARGINE (*BKC) 100 UNITS/ML 48 UNITS SUB-Q (22:09)
[2020-09-09 22:11] LABS: Glucose Point of Care 192 mg/dl (65-105)
[2020-09-10] VITALS (15 sets, daily range): BP systolic 103–140; BP diastolic 50–67; PULSE 58–69; RESP 14–18; TEMP 36.4–37.2; O2SAT 92–98
[2020-09-10] MEDS: IMIPENEM/CILASTATIN SODIUM 200 MG in DEXTROSE 5% 100 ML 300 MG IVPB ×3 (00:58→12:11)
[2020-09-10] MEDS: MORPHINE SULFATE (*CRX) 2 MG/ML INJ IV PUSH (06:14)
[2020-09-10 06:49] LABS: Basophils Absolute Auto 0.1 K/mm3 (0.0-0.1); Basophils Percent Auto 0.4 % (0.2-1.2); Eosinophils Absolute Auto 0.2 K/mm3 (0-0.3); Hematocrit 31.2 % (37.0-47.0); Hemoglobin 9.6 g/dL (12.0-15.0); Immature Granulocyte Absolute 0.45 K/mm3 (0.00-0.031); Immature Granulocyte Percent A 2.1 % (0-0.5); Lymphocytes Absolute Auto 0.74 K/mm3 (0.9-3.2); Lymphocytes Percent Auto 3.4 % (18.3-44.2); Mean Corpuscular HGB Conc 30.8 g/dl (32-36); Mean Corpuscular Hemoglobin 31.1 pg (26-34); Mean Platelet Volume 11.1 fl (7.4-10.4); Monocytes Percent Auto 4.6 % (2.6-8.5); Neutrophils Absolute Auto 19.1 K/mm3 (1.3-6.7); Neutrophils Percent Auto 88.5 % (45.5-73.1); Platelet Count Result 245 k/mm3 (150-375); Red Blood Count 3.09 M/mm3 (4.2-5.4); Red Cell Distribution Width 16.5 % (11.5-14.5); White Blood Count 21.6 K/mm3 (4.5-10.0)
[2020-09-10 07:15] LABS: Alanine Aminotransferase 49 U/L (4-35); Albumin Level 3.1 g/dL (3.5-5.1); Alkaline Phosphatase 202 U/L (38-126); Anion Gap 9 mmol/L (8-16); Aspartate Amino Transferase 60 U/L (14-36); Blood Urea Nitrogen 30 mg/dL (7-17); Calcium 8.8 mg/dL (8.4-10.2); Carbon Dioxide 26 mmol/L (22-30); Chloride 95 mmol/L (98-107); Estimated CRCL calculation 13 ml/min; Estimated Glomerular Filt Rate 10; Glucose 123 mg/dL (65-105); Potassium 4.5 mmol/L (3.4-5.0); Sodium 130 mmol/L (137-145)
--- NOTE | 2020-09-10 07:22 | WPDHPUPDATE1 ---
History and Physical Update Update Date/Time: 09/10/20 07:22 History and Physical has been reviewed, including an updated exam of the patient. There are NO changes in the patient's condition. Risks, benefits, and alternatives have been discussed and questions answered. Patient agrees to proceed with procedure. Consented for: Incision and debridement of the right foot.
[2020-09-10] MEDS: allopurinoL 100 MG TABLET PO (08:22)
[2020-09-10] MEDS: amLODIPine BESYLATE 5 MG TABLET 10 MG PO (08:23)
[2020-09-10] MEDS: CALCIUM ACETATE 667 MG TABLET PO ×3 (08:23→17:42)
[2020-09-10] MEDS: busPIRone HCL 5 MG TABLET 15 MG PO ×2 (08:23→17:42)
[2020-09-10] MEDS: ATORVASTATIN 20 MG TABLET PO (08:23)
[2020-09-10] MEDS: carvediloL 25 MG TABLET PO ×2 (08:23→20:23)
[2020-09-10] MEDS: APIXABAN 2.5 MG TABLET PO ×2 (08:23→17:42)
[2020-09-10] MEDS: buPROPion HCL SR (12 HR) 150 MG TAB PO (08:23)
[2020-09-10] MEDS: TOLNAFTATE 1% POWDER 45 GM BTL 1 APPLIC TOPICAL ×2 (08:24→20:25)
[2020-09-10 09:08] LABS: Glucose Point of Care 130 mg/dl (65-105)
[2020-09-10] MEDS: traMADol HCL (*CRX) 50 MG TABLET PO (10:32)
[2020-09-10] MEDS: SODIUM CHLORIDE 0.9% IV 500 ML 30 ML IV CONT (11:45)
--- NOTE | 2020-09-10 11:46 | PM.PNNEP ---
Progress Note: A&P Assessment and Plan (1) End-stage renal disease (ESRD): Code(s): N18.6 - End stage renal disease Status: Chronic Assessment and Plan: HD today and continue //Sunday dialysis schedule follow electrolytes, volume status, and clearance (2) Diabetic foot ulcer: Code(s): E11.621 - Type 2 diabetes mellitus with foot ulcer; L97.509 - Non-pressure chronic ulcer of other part of unspecified foot with unspecified severity Status: Acute Assessment and Plan: s/p bedside debridement plan formal I&D in OR this afternoon follow culture data (as noted above) on antibiotics Podiatry following (3) Hypertension: Qualifiers: Hypertension type: essential hypertension Qualified Code(s): I10 - Essential (primary) hypertension Code(s): I10 - Essential (primary) hypertension Status: Chronic Assessment and Plan: reasonable control follow trend of hemodynamics (4) Diabetes: Code(s): E11.9 - Type 2 diabetes mellitus without complications Status: Acute Assessment and Plan: follow accuchecks glycemic control Will continue to follow. Subjective Date/time seen: 09/10/20 11:46 Tolerated dialysis treatment yesterday without any issues or problems; also had bedside debridement of right foot wound yesterday and plan for further incision/drainage/debridement of right foot wound in OR this afternoon; no other acute/problems voiced at this time. Exam Narrative: Exam Narrative: General: WD/WN female in NAD Heart: normal S1 and S2; no rub Lungs: clear to auscultation Abdomen: soft, nontender, nondistended, positive bowel sounds Extremities: no cyanosis or clubbing; trace - 1+ edema Skin: right foot wound noted Objective Data Vital Signs Vital Signs: Vital Signs Temp Pulse Resp BP Pulse Ox 09/10/20 11:45 36.7 C 62 18 140/67 94 09/10/20 08:23 69 09/10/20 06:02 95 09/10/20 06:00 36.6 C 69 18 138/54 L 94 09/09/20 20:35 64 09/09/20 19:38 96 09/09/20 19:27 36.7 C 65 18 147/86 H 96 09/09/20 14:00 36.4 C 63 18 117/54 L 92 09/09/20 13:45 36.7 C 65 18 138/65 09/09/20 13:30 63 140/72 09/09/20 13:15 65 144/61 H 09/09/20 13:00 62 134/55 L 09/09/20 12:45 62 148/61 H Intake/Output Intake/Output: Intake & Output 09/07/20 09/08/20 09/09/20 09/10/20 23:59 23:59 23:59 23:59 Intake Total 700 1130 2090 250 Output Total 530 300 Balance 700 1130 1560 -50 Meds/Results Medications: Active Medications Generic Name Dose Route Start Last Admin Trade Name Freq PRN Reason Stop Dose Admin Allopurinol 100 mg 09/08/20 08:00 09/10/20 08:22 Allopurinol 100 Mg Tablet PO 100 mg DAILY@0800 MICHELL Administration Amlodipine Besylate 10 mg 09/08/20 09:00 09/10/20 08:23 Amlodipine Besylate 5 Mg Tablet PO 10 mg DAILY MICHELL Administration Apixaban 2.5 mg 09/08/20 09:00 09/10/20 08:23 Apixaban 2.5 Mg Tablet PO 2.5 mg BID MICHELL Administration Atorvastatin Calcium 20 mg 09/08/20 09:00 09/10/20 08:23 Atorvastatin 20 Mg Tablet PO 20 mg DAILY MICHELL Administration Bupropion HCl 150 mg 09/08/20 09:00 09/10/20 08:23 Bupropion Hcl Sr (12 Hr) 150 Mg Tab PO 150 mg DAILY MICHELL Administration Buspirone HCl 15 mg 09/08/20 09:00 09/10/20 08:23 Buspirone Hcl 5 Mg Tablet PO 15 mg BID MICHELL Administration Calcium Acetate 667 mg 09/08/20 09:00 09/10/20 08:23 Calcium Acetate 667 Mg Tablet PO 667 mg TID MICHELL Administration Carvedilol 25 mg 09/07/20 23:55 09/10/20 08:23 Carvedilol 25 Mg Tablet PO 25 mg Q12HR MICHELL Administration Dextrose 12.5 gm 09/07/20 23:54 Dextrose 50% 25 Gm/50 Ml Syringe IV PUSH PRN PRN Hypoglycemia Protocol Famotidine 20 mg 09/08/20 09:00 09/08/20 13:32 Famotidine 20 Mg/2 Ml Vial IV PUSH 20 mg DAILY PRN Administration AFTER DIAL
--- NOTE | 2020-09-10 11:52 | WPDANESEPPF ---
Anes - Initial Pre Proc Eval Procedure: Operation Date: 09/10/20 13:00 Proposed Procedures p Incision and Debridement Right Foot Abscess - Brant Salcido JR, MD Date/Time: 09/10/20 11:52 Surgeon: Hugo Ramírez MD Pre Op Diagnosis: Diabetic ulcer right foot/cellulitis Patient Data Age: 70 Gender: F Height: 1.57 m Weight: 120 kg Last Vital Signs Temp 36.6 C 09/10/20 06:00 Pulse 69 09/10/20 08:23 Resp 18 09/10/20 06:00 BP 138/54 L 09/10/20 06:00 Pulse Ox 95 09/10/20 06:02 Allergies Allergy/AdvReac Type Severity Reaction Status Date / Time No Known Allergies Allergy Mild Verified 09/07/20 18:57 Home Medications Medication Instructions Recorded Confirmed Type allopurinol [Zyloprim] 100 mg PO DAILY 05/30/19 09/07/20 History bupropion HCl [Wellbutrin SR] 150 mg PO DAILY 05/30/19 09/07/20 History calcium acetate(phosphat bind) 667 mg PO TID 05/30/19 09/07/20 History carvedilol [Coreg] 25 mg PO BID 05/30/19 09/07/20 History insulin lispro [Humalog U-100 0 sliding scale dose SUBCUT TID 05/30/19 09/07/20 History Insulin] apixaban [Eliquis] 2.5 mg PO BID 30 Days #60 tablet 07/10/19 09/07/20 Rx amlodipine 10 mg PO DAILY 09/07/20 09/07/20 History atorvastatin 20 mg PO DAILY 09/07/20 09/07/20 History buspirone 15 mg PO BID 09/07/20 09/07/20 History cranberry 400 mg PO DAILY 09/07/20 09/07/20 History ferrous sulfate 27 mg PO DAILY 09/07/20 09/07/20 History insulin degludec [Tresiba U-100 48 unit SUBCUT HS 09/07/20 09/07/20 History Insulin] losartan 100 mg PO HS 09/07/20 09/07/20 History ondansetron HCl [Zofran] 4 mg PO Q6H PRN 09/07/20 09/07/20 History tramadol 50 mg PO BID PRN 09/07/20 09/07/20 History Laboratory Tests 09/09/20 09/09/20 09/09/20 14:31 17:49 18:10 WBC RBC Hgb Hct MCV MCH MCHC RDW Plt Count MPV Immature Gran % (Auto) Neut % (Auto) Lymph % (Auto) [place] % (Auto) Eos % (Auto) Baso % (Auto) Lymph # (Auto) [place] # (Auto) Eos # (Auto) Baso # (Auto) Abs Immat Gran (auto) Absolute Neuts (auto) Absolute Nucleated RBC Nucleated RBC % Sodium Potassium Chloride Carbon Dioxide Anion Gap BUN Creatinine Estim Creat Clear Calc Estimated GFR Glucose POC Capillary Glucose 135 mg/dl H mg/dl 176 mg/dl H mg/dl (65-105) (65-105) Calcium Total Bilirubin AST ALT Alkaline Phosphatase Total Protein Albumin Random Vancomycin 7.4 ug/mL L ug/mL (10-20) 09/09/20 09/10/20 09/10/20 22:08 06:02 06:02 WBC 21.6 K/mm3 H K/mm3 (4.5-10.0) RBC 3.09 M/mm3 L M/mm3 (4.2-5.4) Hgb 9.6 g/dL L g/dL (12.0-15.0) Hct 31.2 % L % (37.0-47.0) MCV 101.0 fl H fl (80-100) MCH 31.1 pg pg (26-34) MCHC 30.8 g/dl L g/dl (32-36) RDW 16.5 % H % (11.5-14.5) Plt Count 245 k/mm3 k/mm3 (150-375) MPV 11.1 fl H fl (7.4-10.4) Immature Gran % (Auto) 2.1 % H % (0-0.5) Neut % (Auto) 88.5 % H % (45.5-73.1) Lymph % (Auto) 3.4 % L % (18.3-44.2) [place] % (Auto) 4.6 % % (2.6-8.5) Eos % (Auto) 1.0 % % (0-4.4) Baso % (Auto) 0.4 % % (0.2-1.2) Lymph # (Auto) 0.74 K/mm3 L K/mm3 (0.9-3.2) [place] # (Auto) 1.0 K/mm3 H K/mm3 (0.1-0.6) Eos # (Auto) 0.2 K/mm3 K/mm3 (0-0.3) Baso # (Auto) 0.1 K/mm3 K/mm3 (0.0-0.1) Abs Immat Gran (auto) 0.45 K/mm3 H K/mm3 (0.00-0.031) Absolute Neuts (a
[2020-09-10 11:54] LABS: Glucose Point of Care 85 mg/dl (65-105)
[2020-09-10] MEDS: LIDOCAINE HCL 2% PF INJ 5 ML VIAL 20 ML INFILTRATE (12:45)
[2020-09-10] MEDS: VANCOMYCIN HCL 1,000 MG VIAL 1000 MG XX (12:56)
--- NOTE | 2020-09-10 12:58 | SUR.OPER ---
Wound Vac not placed at this time. Soft Dressing initiated by Omari. Wound vac machine sent with patient to floor for later application.
--- NOTE | 2020-09-10 13:00 | P.OP_ITS ---
Procedure Note - Detailed Date of Procedure 09/10/20 Pre-op Diagnosis Diabetic ulcer right foot with absces/cellulitis Post-op Diagnosis same Procedure Performed Incision and debridement of the right foot Surgeon Brant Salcido JR, DPM Anesthesia MAC and local Indications Diabetic foot ulcer with deep plantar abscess of the right foot Findings Significant ludwig necrotic tissue debrided along the plantar lateral and central aspect of the wound extending to the periosteal tissue. Significant soft muscle and subcutaneous tissue necrosis was noted prior to debridement. 50cc's of purulent viscous material drained. Description of Procedure Under mild sedation, the patient was brought to the operating room, placed on the operating table in the supine position. A pneumatic ankle tourniquet was placed about the patient's ankle. Following IV sedation anesthesia, I performed a proximal tibial nerve block with 20cc's of 0.5% marcaine plain and 2% Lidocaine plain. The foot was then scrubbed, prepped, and draped in the usual aseptic manner. Elevation of the leg was then used to examine the patient's foot and pneumatic ankle tourniquet was then inflated. Surgery began in the following manner. Attention was directed to the plantar aspect of the lateral midfoot where two converging semi elliptical incisions were made about the large necrotic wound with significant ludwig necrotic tissue debrided along the plantar lateral and central aspect of the plantar vault of the foot extending to the periosteal tissue. Significant soft muscle and subcutaneous tissue necrosis was noted prior to debridement. Approximately 50cc's of purulence was drained. A deep intra operative wound culture swab was taken and sent for aerobic and anaerobic culture and sensitivity. I utilized the Versajet system to debride the fibrous non viable tissue until only healthy bleeding tissue was noted. No involvement of the bone note. All bleeders were cauterized as necessary. No remaining necrotic tissue was noted, no other tracking abscess was noted the resulting wound was aproximately 10cm in diameter. I did use a powered pulsed lavage to flush the wound with 3L of sterile saline. Next, I packed the wound with Polleverywhere antibiotics beads mixed with 1g of Vancomycin. I did leave the incision site open I dressed with two ABD pads, 4x4 gauze, Kerlix and HEIDI Wrap. The pneumatic ankle tourniquet was then deflated and a prompt hyperemic response noted to all digits of the affected foot. A surgical shoe will be used to ambulate to the restroom. The patient did very well with the procedure and the anesthesia. The patient was transferred to the recovery room with vital signs stable and vascular status intact to all toes of the affected foot. The patient will be readmitted to the floor for IV antibiotics and for an infectious disease consult to help with antibiotic management. The patient will follow the following instructions: 1. Keep the dressing clean, dry, and intact Dr. Salcido will change the dressing in 24 hours. 2. The patient should use a surgical shoe for ambulation postoperatively. 3. The patient should be on bedrest with bathroom privileges and elevate the affected foot when at rest. 4. I, Dr. Salcido, will change the dressing the day after surgery. arise. Estimated Blood Loss 50 Tourniquet Time 18 Urine Output 300 Drains No Packing No Pathology yes (Aerobic and anaerobic culture and sensitivity.) Complications No immediate complications Condition stable Disposition same day
[2020-09-10 13:06] LABS: Glucose Point of Care 87 mg/dl (65-105)
--- NOTE | 2020-09-10 14:05 | PM.IMPN ---
Progress Note: A&P Assessment and Plan (1) Diabetic foot ulcer: Code(s): E11.621 - Type 2 diabetes mellitus with foot ulcer; L97.509 - Non-pressure chronic ulcer of other part of unspecified foot with unspecified severity Status: Acute Assessment and Plan: as per diabetic stewardship patient was started on Primaxin and vancomycin. Blood and wound cultures have been taken. Dr. Root was notified and agreed to see the patient. An MRI is ordered for that right foot. 09/10/20 14:05 Patient is 70-year-old female with history of end-stage renal disease on hemodialysis, history of diabetes, had developed right foot ulcer and was seen by her irrigation district manager started on oral antibiotic but the wound was not healing it was more pain and erythematous, MRI of the foot did not show any osteomyelitis, patient is started on imipenem and vancomycin, patient be seen by her irrigation district manager further recommendation to follow. 09/09 today patient was seen by her irrigation district manager and had a bedside wound debridement and cleaning patient tolerated, irrigation district manager will take the patient to OR tomorrow for proper I and D of the foot and further recommendation to follow, the wound culture is growing Proteus mirabilis sensitivities is pending will continue imipenem and vancomycin, will continue to monitor will have a PT OT evaluate the patient and further recommendation to follow. 09/10 today patient is scheduled to be taken to OR by her irrigation district manager for deep cleaning of the wound, patient complains right foot, denies any fever or chills, patient will have scheduled dialysis, patient wound culture is growing Proteus mirabilis and Enterococcus species, Proteus mirabilis is resistant to imipenem and sensitive to Rocephin, will stop imipenem and start the patient on Rocephin, will continue to monitor will follow-up and further recommendation to (2) Splenic infarction: Code(s): D73.5 - Infarction of spleen Status: Acute Assessment and Plan: Patient is on Eliquis will continue without. (3) Infarction of liver: Code(s): K76.3 - Infarction of liver Status: Acute Assessment and Plan: Continue with Eliquis. (4) Hypertension: Qualifiers: Hypertension type: essential hypertension Qualified Code(s): I10 - Essential (primary) hypertension Code(s): I10 - Essential (primary) hypertension Status: Chronic Assessment and Plan: Patient is slightly hypotensive at this time. On not sure if it is due to the pain medication of the infection. Her home medications were restarted for tomorrow morning. It looks like she is on Coreg and losartan and amlodipine. monitor electrolytes. (5) Diabetes: Code(s): E11.9 - Type 2 diabetes mellitus without complications Status: Acute Assessment and Plan: Accu-Cheks AC and HS. Continue with basal insulin Check A1c (6) End-stage renal disease on peritoneal dialysis: Code(s): N18.6 - End stage renal disease; Z99.2 - Dependence on renal dialysis Status: Acute Assessment and Plan: the patient used 6 do peritoneal dialysis but then developed peritonitis. She is now on hemodialysis Sunday. She has a positive bruit and thrill to their left AV fistula. A looks like her phosphorus levels been running high. Further recommendations per Nephrology. the patient is on a phosphate binder. 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 Continue with basal insulin Check A1c . I mentioned that her blood sugars will be elevated now that she has an infect
[2020-09-10] MEDS: GLUCOSE ORAL GEL 15 GM OF GLUCSE IN 37.5 GM TUBE PO (17:47)
[2020-09-10 18:10] LABS: Glucose Point of Care 59 mg/dl (65-105)
[2020-09-10 18:10] LABS: Glucose Point of Care 70 mg/dl (65-105)
[2020-09-10 18:53] LABS: Glucose Point of Care 114 mg/dl (65-105)
[2020-09-10] MEDS: LOSARTAN POTASSIUM 100 MG TABLET PO (20:24)
[2020-09-10 21:36] LABS: Vancomycin Random 16.3 ug/mL (10-20)
[2020-09-10 22:05] LABS: Glucose Point of Care 135 mg/dl (65-105)
[2020-09-11] VITALS (26 sets, daily range): BP systolic 107–163; BP diastolic 43–98; PULSE 57–87; RESP 16–20; TEMP 36.1–37; O2SAT 93–96
[2020-09-11 06:00] LABS: Basophils Absolute Auto 0.1 K/mm3 (0.0-0.1); Basophils Percent Auto 0.5 % (0.2-1.2); Eosinophils Absolute Auto 0.1 K/mm3 (0-0.3); Eosinophils Percent Auto 0.7 % (0-4.4); Hemoglobin 9.6 g/dL (12.0-15.0); Immature Granulocyte Absolute 0.36 K/mm3 (0.00-0.031); Immature Granulocyte Percent A 1.9 % (0-0.5); Lymphocytes Absolute Auto 0.81 K/mm3 (0.9-3.2); Lymphocytes Percent Auto 4.3 % (18.3-44.2); Mean Corpuscular Hemoglobin 31.3 pg (26-34); Mean Platelet Volume 10.9 fl (7.4-10.4); Monocytes Percent Auto 5.3 % (2.6-8.5); Neutrophils Absolute Auto 16.5 K/mm3 (1.3-6.7); Neutrophils Percent Auto 87.3 % (45.5-73.1); Platelet Count Result 240 k/mm3 (150-375); Red Blood Count 3.07 M/mm3 (4.2-5.4); Red Cell Distribution Width 16.4 % (11.5-14.5); White Blood Count 18.9 K/mm3 (4.5-10.0)
[2020-09-11 06:14] LABS: Alanine Aminotransferase 46 U/L (4-35); Alkaline Phosphatase 229 U/L (38-126); Anion Gap 8 mmol/L (8-16); Aspartate Amino Transferase 69 U/L (14-36); Bilirubin,Total 1.2 mg/dL (0.2-1.3); Blood Urea Nitrogen 36 mg/dL (7-17); Calcium 9.2 mg/dL (8.4-10.2); Carbon Dioxide 28 mmol/L (22-30); Chloride 94 mmol/L (98-107); Estimated CRCL calculation 11 ml/min; Estimated Glomerular Filt Rate 8; Glucose 105 mg/dL (65-105); Potassium 4.7 mmol/L (3.4-5.0); Sodium 130 mmol/L (137-145)
[2020-09-11 08:41] LABS: Glucose Point of Care 96 mg/dl (65-105)
[2020-09-11] MEDS: allopurinoL 100 MG TABLET PO (08:42)
[2020-09-11] MEDS: amLODIPine BESYLATE 5 MG TABLET 10 MG PO (08:42)
[2020-09-11] MEDS: ATORVASTATIN 20 MG TABLET PO (08:43)
[2020-09-11] MEDS: CALCIUM ACETATE 667 MG TABLET PO ×2 (08:43→18:10)
[2020-09-11] MEDS: APIXABAN 2.5 MG TABLET PO ×2 (08:43→18:11)
[2020-09-11] MEDS: busPIRone HCL 5 MG TABLET 15 MG PO ×2 (08:43→18:10)
[2020-09-11] MEDS: carvediloL 25 MG TABLET PO ×2 (08:43→20:30)
[2020-09-11] MEDS: buPROPion HCL SR (12 HR) 150 MG TAB PO (08:43)
[2020-09-11] MEDS: TOLNAFTATE 1% POWDER 45 GM BTL 1 APPLIC TOPICAL ×2 (08:44→20:36)
[2020-09-11] MEDS: traMADol HCL (*CRX) 50 MG TABLET PO ×2 (09:48→16:21)
--- NOTE | 2020-09-11 10:09 | WPDANESPN ---
Anes - Prog Note Post-Op Date/Time: 09/11/20 10:09 Cardiovascular status: normal Respiratory status: normal Airway patency: baseline Mental status: baseline Post-Op hydration status: normal Vital Signs: Last Vital Signs Temp 36.3 C L 09/11/20 09:18 Pulse 64 09/11/20 09:18 Resp 20 09/11/20 09:18 BP 119/70 09/11/20 09:18 Pulse Ox 95 09/11/20 09:18 Pain Score (VAS): 03/28 I/O: Intake & Output 09/10/20 09/11/20 09/11/20 23:59 07:59 15:59 Intake Total 120 120 250 Balance 120 120 250 Laboratory Tests 09/11/20 05:46 09/11/20 05:46 09/10/20 09/10/20 09/10/20 11:52 13:02 17:39 WBC RBC Hgb Hct MCV MCH MCHC RDW Plt Count MPV Immature Gran % (Auto) Neut % (Auto) Lymph % (Auto) [place] % (Auto) Eos % (Auto) Baso % (Auto) Lymph # (Auto) [place] # (Auto) Eos # (Auto) Baso # (Auto) Abs Immat Gran (auto) Absolute Neuts (auto) Absolute Nucleated RBC Nucleated RBC % Sodium Potassium Chloride Carbon Dioxide Anion Gap BUN Creatinine Estim Creat Clear Calc Estimated GFR Glucose POC Capillary Glucose 85 87 59 L* Calcium Total Bilirubin AST ALT Alkaline Phosphatase Total Protein Albumin Random Vancomycin 09/10/20 09/10/20 09/10/20 18:02 18:51 20:08 WBC RBC Hgb Hct MCV MCH MCHC RDW Plt Count MPV Immature Gran % (Auto) Neut % (Auto) Lymph % (Auto) [place] % (Auto) Eos % (Auto) Baso % (Auto) Lymph # (Auto) [place] # (Auto) Eos # (Auto) Baso # (Auto) Abs Immat Gran (auto) Absolute Neuts (auto) Absolute Nucleated RBC Nucleated RBC % Sodium Potassium Chloride Carbon Dioxide Anion Gap BUN Creatinine Estim Creat Clear Calc Estimated GFR Glucose POC Capillary Glucose 70 114 H Calcium Total Bilirubin AST ALT Alkaline Phosphatase Total Protein Albumin Random Vancomycin 16.3 09/10/20 09/11/20 09/11/20 21:49 05:46 05:46 WBC 18.9 H RBC 3.07 L Hgb 9.6 L Hct 31.0 L MCV 101.0 H MCH 31.3 MCHC 31.0 L RDW 16.4 H Plt Count 240 MPV 10.9 H Immature Gran % (Auto) 1.9 H Neut % (Auto) 87.3 H Lymph % (Auto) 4.3 L [place] % (Auto) 5.3 Eos % (Auto) 0.7 Baso % (Auto) 0.5 Lymph # (Auto) 0.81 L [place] # (Auto) 1.0 H Eos # (Auto) 0.1 Baso # (Auto) 0.1 Abs Immat Gran (auto) 0.36 H Absolute Neuts (auto) 16.5 H Absolute Nucleated RBC 0.0 Nucleated RBC % 0.0 Sodium 130 L Potassium 4.7 Chloride 94 L Carbon Dioxide 28 Anion Gap 8 BUN 36 H Creatinine 5.20 H Estim Creat Clear Calc 11 Estimated GFR 8 L Glucose 105 POC Capillary Glucose 135 H Calcium 9.2 Total Bilirubin 1.2 AST 69 H ALT 46 H Alkaline Phosphatase 229 H Total Protein 7.0 Albumin 3.0 L Random Vancomycin 09/11/20 08:36 WBC RBC Hgb Hct MCV MCH MCHC RDW Plt Count MPV Immature Gran % (Auto) Neut % (Auto) Lymph % (Auto) [place] % (Auto) Eos % (Auto) Baso % (Auto) Lymph # (Auto) [place] # (Auto) Eos # (Auto) Baso # (Auto) Abs Immat Gran (auto) Absolute Neuts (auto) Absolute Nucleated RBC Nucleated RBC % Sodium Potassium Chloride Carbon Dioxide Anion Gap BUN Creatinine Estim Creat Clear Calc Estimated GFR Glucose POC Capillary Glucose 96 Calcium Total Bilirubin AST ALT Alkaline Phosphatase Total Protein Albumin Random Vancomycin Microbiology 09/07/20 14:14 Foot Right Anaerobic Culture - Preliminary 09/07/20 14:14 Foot Right Aerobic Culture - Final Proteus Mirabilis Citrobacter freundii Enterococcus species 09/09/20 14:21 Urine Catheterized Urine Culture - Final Po
[2020-09-11] MEDS: MORPHINE SULFATE (*CRX) 2 MG/ML INJ IV PUSH ×4 (10:54→20:31)
--- NOTE | 2020-09-11 11:04 | WPDPN ---
Progress Note: A&P Additional Plan -1 day status post incision and debridement of abscess/necrotic infected diabetic ulceration (left open to heal secondarily) -WBC improving -No constitutional symptoms -Continue with IV abx per ID/Medicine pre op cultures noted intra-op deep cultures pending -TBI right >30mmHG -Margins of wound appear healthy with some degree of granular tissue already noted. Periwound edema and erythema resolving. -I did change dressing with a dry sterile dressing with 4x4 gauze, Kerlix and HEIDI. Wound VAC possible on Sunday if SOI continue to improve. -The patient is noman risk for limb loss due to severity of infection this was discussed with the patient and the patient's son Satya. Will continue to follow, Dr. Salcido Exam Extrem: Ankle/foot/toe images: 1. Large are of loss of skin and tissue to the plantar lateral and plantar central midfoot. The margins of the debridement site already forming granular tissue. The center portion of the wound is packed with PMMA antibitoic beads. No calor present to the inferior foot, edema significantly improved. Objective Data Vital Signs Vital Signs: Vital Signs - 24 hr 09/10/20 11:45 09/10/20 12:52 09/10/20 13:05 Temperature 36.7 C 36.6 C Pulse Rate 62 63 59 L Respiratory Rate 18 14 14 Blood Pressure 140/67 103/50 L 110/53 L Pulse Oximetry 94 96 96 09/10/20 13:20 09/10/20 13:35 09/10/20 14:05 Temperature 36.6 C Pulse Rate 59 L 61 58 L Respiratory Rate 14 14 16 Blood Pressure 117/55 L 114/51 L 122/50 L Pulse Oximetry 94 93 92 09/10/20 14:20 09/10/20 14:50 09/10/20 15:50 Temperature 36.5 C 36.7 C 36.4 C L Pulse Rate 59 L 62 61 Respiratory Rate 18 16 16 Blood Pressure 131/56 L 126/66 134/59 L Pulse Oximetry 93 95 93 09/10/20 20:23 09/10/20 20:26 09/10/20 20:27 Temperature 37.2 C Pulse Rate 68 68 Respiratory Rate 18 Blood Pressure 129/51 L Pulse Oximetry 98 98 09/11/20 01:15 09/11/20 02:08 09/11/20 06:31 Temperature 36.5 C 36.1 C L Pulse Rate 65 60 Respiratory Rate 16 18 Blood Pressure 119/48 L 120/43 L Pulse Oximetry 95 95 94 09/11/20 08:11 09/11/20 08:43 09/11/20 09:18 Temperature 36.3 C L Pulse Rate 87 64 Respiratory Rate 20 Blood Pressure 119/70 Pulse Oximetry 93 95 Intake/Output Intake/Output: Intake & Output 09/08/20 09/09/20 09/10/20 09/11/20 23:59 23:59 23:59 23:59 Intake Total 1130 2090 470 370 Output Total 530 600 Balance 1130 1560 -130 370 Meds/Results Medications: Active Medications Generic Name Dose Route Start Last Admin Trade Name Freq PRN Reason Stop Dose Admin Allopurinol 100 mg 09/08/20 08:00 09/11/20 08:42 Allopurinol 100 Mg Tablet PO 100 mg DAILY@0800 MICHELL Administration Amlodipine Besylate 10 mg 09/08/20 09:00 09/11/20 08:42 Amlodipine Besylate 5 Mg Tablet PO 10 mg DAILY MICHELL Administration Apixaban 2.5 mg 09/08/20 09:00 09/11/20 08:43 Apixaban 2.5 Mg Tablet PO 2.5 mg BID MICHELL Administration Atorvastatin Calcium 20 mg 09/08/20 09:00 09/11/20 08:43 Atorvastatin 20 Mg Tablet PO 20 mg DAILY MICHELL Administration Bupropion HCl 150 mg 09/08/20 09:00 09/11/20 08:43 Bupropion Hcl Sr (12 Hr) 150 Mg Tab PO 150 mg DAILY MICHELL Administration Buspirone HCl 15 mg 09/08/20 09:00 09/11/20 08:43 Buspirone Hcl 5 Mg Tablet PO 15 mg BID MICHELL Administration Calcium Acetate 667 mg 09/08/20 09:00 09/11/20 08:43 Calcium Acetate 667 Mg Tablet PO 667 mg TID MICHELL Administration Carvedilol 25 mg 09/07/20 23:55 09/11/20 08:43 Carvedilol 25 Mg Tablet PO 25 mg Q12HR MICHELL Administration Dextrose 12.5 gm 09/07/20 23:54 Dextrose 50% 25 Gm/50 Ml Syringe IV PUSH PRN PRN Hypoglycemia Protocol Epoetin Adalid-epbx 10,000 units 09/11/20 21:08 Epoetin Adalid-Epbx 10,000 Units/Ml Vial IV PUSH 09/11/20 21:09 ONCE ONE Famotidine 20 mg 09/08/20 09:00 09/08/20 13:32 Famotidine
[2020-09-11 12:36] LABS: Glucose Point of Care 139 mg/dl (65-105)
--- NOTE | 2020-09-11 13:21 | PCOTNOTE ---
Attempted OT evaluation; pt. leaving for dialysis. Will attempt evaluation tomorrow
--- NOTE | 2020-09-11 13:43 | PM.IMPN ---
Progress Note: A&P Assessment and Plan (1) Diabetic foot ulcer: Code(s): E11.621 - Type 2 diabetes mellitus with foot ulcer; L97.509 - Non-pressure chronic ulcer of other part of unspecified foot with unspecified severity Status: Acute Assessment and Plan: as per diabetic stewardship patient was started on Primaxin and vancomycin. Blood and wound cultures have been taken. Dr. Root was notified and agreed to see the patient. An MRI is ordered for that right foot. 09/11/20 13:43 Patient is 70-year-old female with history of end-stage renal disease on hemodialysis, history of diabetes, had developed right foot ulcer and was seen by her technology support analyst started on oral antibiotic but the wound was not healing it was more pain and erythematous, MRI of the foot did not show any osteomyelitis, patient is started on imipenem and vancomycin, patient be seen by her technology support analyst further recommendation to follow. 09/09 today patient was seen by her technology support analyst and had a bedside wound debridement and cleaning patient tolerated, technology support analyst will take the patient to OR tomorrow for proper I and D of the foot and further recommendation to follow, the wound culture is growing Proteus mirabilis sensitivities is pending will continue imipenem and vancomycin, will continue to monitor will have a PT OT evaluate the patient and further recommendation to follow. 09/10 today patient is scheduled to be taken to OR by her technology support analyst for deep cleaning of the wound, patient complains right foot, denies any fever or chills, patient will have scheduled dialysis, patient wound culture is growing Proteus mirabilis and Enterococcus species, Proteus mirabilis is resistant to imipenem and sensitive to Rocephin, will stop imipenem and start the patient on Rocephin, will continue to monitor will follow-up and further recommendation to follow. 09/11 patient was taken to OR on 09/10 and had surgical I&D and irrigation of the wound, today patient feeling better however has difficulty with ambulation patient will work with physical therapy, denies any fever or chills, patient will have scheduled dialysis, patient wound culture is growing Proteus mirabilis and Enterococcus species, Proteus mirabilis is resistant to imipenem and sensitive to Rocephin, will stop imipenem and start the patient on Rocephin, will continue to monitor will follow-up and further recommendation to follow. (2) Splenic infarction: Code(s): D73.5 - Infarction of spleen Status: Acute Assessment and Plan: Patient is on Eliquis will continue without. (3) Infarction of liver: Code(s): K76.3 - Infarction of liver Status: Acute Assessment and Plan: Continue with Eliquis. (4) Hypertension: Qualifiers: Hypertension type: essential hypertension Qualified Code(s): I10 - Essential (primary) hypertension Code(s): I10 - Essential (primary) hypertension Status: Chronic Assessment and Plan: Patient is slightly hypotensive at this time. On not sure if it is due to the pain medication of the infection. Her home medications were restarted for tomorrow morning. It looks like she is on Coreg and losartan and amlodipine. monitor electrolytes. (5) Diabetes: Code(s): E11.9 - Type 2 diabetes mellitus without complications Status: Acute Assessment and Plan: Accu-Cheks AC and HS. Continue with basal insulin Check A1c (6) End-stage renal disease on peritoneal dialysis: Code(s): N18.6 - End stage renal disease; Z99.2 - Dependence on renal dialysis Status: Acute Assessment and Plan: the patient used 6 do peritoneal dialysis but then developed peritonitis. She is now on hemodialysis Sunday. She has a positive bruit and thrill to their left AV fistula. A looks like her phosphorus levels been running high. Further recommendations per Nephrology. the patient is on a phosphate binder. (7) Di
--- NOTE | 2020-09-11 15:27 | PM.PNNEP ---
Progress Note: A&P Assessment and Plan (1) End-stage renal disease (ESRD): Code(s): N18.6 - End stage renal disease Status: Chronic Assessment and Plan: HD today and continue //Sunday dialysis schedule follow electrolytes, volume status, and clearance (2) Diabetic foot ulcer: Code(s): E11.621 - Type 2 diabetes mellitus with foot ulcer; L97.509 - Non-pressure chronic ulcer of other part of unspecified foot with unspecified severity Status: Acute Assessment and Plan: s/p bedside debridement s/p I & D in OR yesterday (09/10/20) follow culture data (as noted above) on antibiotics pain control Podiatry following (3) Hypertension: Qualifiers: Hypertension type: essential hypertension Qualified Code(s): I10 - Essential (primary) hypertension Code(s): I10 - Essential (primary) hypertension Status: Chronic Assessment and Plan: reasonable control follow trend of hemodynamics (4) Anemia: Code(s): D64.9 - Anemia, unspecified Status: Acute Assessment and Plan: partly due to ESRD but also acute infection along with recent surgical procedures Epogen with HD follow trend of H/H (5) Diabetes: Code(s): E11.9 - Type 2 diabetes mellitus without complications Status: Acute Assessment and Plan: follow accuchecks glycemic control Will continue to follow. Subjective Date/time seen: 09/11/20 15:27 Tolerating dialysis treatment at the time of my visit (seen on HD at 3:10PM); s/p incision/drainage/debridement in OR by Podiatry of right diabetic foot wound -- tolerated the procedure reasonably well; pain control reasonable at this time; no events overnight or earlier this AM. Exam Narrative: Exam Narrative: General: WD/WN female in NAD Heart: normal S1 and S2; no rub Lungs: clear to auscultation Abdomen: soft, nontender, nondistended, positive bowel sounds Extremities: no cyanosis or clubbing; trace -edema Skin: right foot dressings in place Objective Data Vital Signs Vital Signs: Vital Signs Temp Pulse Resp BP Pulse Ox 09/11/20 13:28 36.5 C 60 18 121/60 94 09/11/20 13:15 36.7 C 60 20 142/61 H 09/11/20 09:18 36.3 C L 64 20 119/70 95 09/11/20 08:43 87 09/11/20 08:11 93 09/11/20 06:31 36.1 C L 60 18 120/43 L 94 09/11/20 02:08 95 09/11/20 01:15 36.5 C 65 16 119/48 L 95 09/10/20 20:27 98 09/10/20 20:26 37.2 C 68 18 129/51 L 98 09/10/20 20:23 68 09/10/20 15:50 36.4 C L 61 16 134/59 L 93 Intake/Output Intake/Output: Intake & Output 09/08/20 09/09/20 09/10/20 09/11/20 23:59 23:59 23:59 23:59 Intake Total 1130 2090 470 610 Output Total 530 600 Balance 1130 1560 -130 610 Meds/Results Medications: Active Medications Generic Name Dose Route Start Last Admin Trade Name Carrollq PRN Reason Stop Dose Admin Allopurinol 100 mg 09/08/20 08:00 09/11/20 08:42 Allopurinol 100 Mg Tablet PO 100 mg DAILY@0800 MICHELL Administration Amlodipine Besylate 10 mg 09/08/20 09:00 09/11/20 08:42 Amlodipine Besylate 5 Mg Tablet PO 10 mg DAILY MICHELL Administration Apixaban 2.5 mg 09/08/20 09:00 09/11/20 08:43 Apixaban 2.5 Mg Tablet PO 2.5 mg BID MICHELL Administration Atorvastatin Calcium 20 mg 09/08/20 09:00 09/11/20 08:43 Atorvastatin 20 Mg Tablet PO 20 mg DAILY MICHELL Administration Bupropion HCl 150 mg 09/08/20 09:00 09/11/20 08:43 Bupropion Hcl Sr (12 Hr) 150 Mg Tab PO 150 mg DAILY MICHELL Administration Buspirone HCl 15 mg 09/08/20 09:00 09/11/20 08:43 Buspirone Hcl 5 Mg Tablet PO 15 mg BID MICHELL Administration Calcium Acetate 667 mg 09/08/20 09:00 09/11/20 14:36 Calcium Acetate 667 Mg Tablet PO Not Given TID MICHELL Carvedilol 25 mg 09/07/20 23:55 09/11/20 08:43 Carvedilol 25 Mg Tablet PO 25 mg Q12HR MICHELL Administration Dextrose 12.5 gm 09/07
[2020-09-11 17:55] LABS: Glucose Point of Care 143 mg/dl (65-105)
[2020-09-11 20:22] LABS: Glucose Point of Care 172 mg/dl (65-105)
[2020-09-11] MEDS: LOSARTAN POTASSIUM 100 MG TABLET PO (20:30)
[2020-09-11] MEDS: INSULIN GLARGINE (*BKC) 100 UNITS/ML 48 UNITS SUB-Q (20:35)
[2020-09-11] MEDS: EPOETIN ALFA-EPBX 10,000 UNITS/ML VIAL 10000 UNITS IV PUSH (22:24)
[2020-09-12] VITALS (9 sets, daily range): BP systolic 100–156; BP diastolic 45–71; PULSE 56–78; RESP 16–18; TEMP 36–36.7; O2SAT 93–100
[2020-09-12 06:32] LABS: Basophils Absolute Auto 0.1 K/mm3 (0.0-0.1); Basophils Percent Auto 0.6 % (0.2-1.2); Eosinophils Absolute Auto 0.3 K/mm3 (0-0.3); Eosinophils Percent Auto 1.6 % (0-4.4); Hemoglobin 9.5 g/dL (12.0-15.0); Immature Granulocyte Absolute 0.47 K/mm3 (0.00-0.031); Immature Granulocyte Percent A 2.8 % (0-0.5); Lymphocytes Absolute Auto 0.62 K/mm3 (0.9-3.2); Lymphocytes Percent Auto 3.7 % (18.3-44.2); Mean Corpuscular HGB Conc 30.6 g/dl (32-36); Mean Corpuscular Volume 101.3 fl (80-100); Mean Platelet Volume 10.9 fl (7.4-10.4); Monocytes Percent Auto 5.8 % (2.6-8.5); Neutrophils Absolute Auto 14.2 K/mm3 (1.3-6.7); Neutrophils Percent Auto 85.5 % (45.5-73.1); Platelet Count Result 241 k/mm3 (150-375); Red Blood Count 3.06 M/mm3 (4.2-5.4); Red Cell Distribution Width 16.5 % (11.5-14.5); White Blood Count 16.6 K/mm3 (4.5-10.0)
[2020-09-12 06:36] LABS: Alanine Aminotransferase 36 U/L (4-35); Alkaline Phosphatase 220 U/L (38-126); Anion Gap 7 mmol/L (8-16); Aspartate Amino Transferase 47 U/L (14-36); Bilirubin,Total 0.8 mg/dL (0.2-1.3); Blood Urea Nitrogen 20 mg/dL (7-17); Calcium 9.2 mg/dL (8.4-10.2); Carbon Dioxide 29 mmol/L (22-30); Chloride 98 mmol/L (98-107); Estimated CRCL calculation 15 ml/min; Estimated Glomerular Filt Rate 11; Glucose 92 mg/dL (65-105); Potassium 4.2 mmol/L (3.4-5.0); Sodium 134 mmol/L (137-145)
[2020-09-12] MEDS: polyethylene glycoL 3350 17 GM POWD.PACK PO (09:00)
[2020-09-12] MEDS: carvediloL 25 MG TABLET PO ×2 (09:01→20:17)
[2020-09-12] MEDS: busPIRone HCL 5 MG TABLET 15 MG PO ×2 (09:01→17:58)
[2020-09-12] MEDS: APIXABAN 2.5 MG TABLET PO ×2 (09:01→17:59)
[2020-09-12] MEDS: DOCUSATE SODIUM 100 MG CAPSULE PO ×2 (09:01→20:17)
[2020-09-12] MEDS: buPROPion HCL SR (12 HR) 150 MG TAB PO (09:01)
[2020-09-12] MEDS: allopurinoL 100 MG TABLET PO (09:01)
[2020-09-12] MEDS: CALCIUM ACETATE 667 MG TABLET PO ×3 (09:01→17:58)
[2020-09-12] MEDS: ATORVASTATIN 20 MG TABLET PO (09:01)
[2020-09-12] MEDS: amLODIPine BESYLATE 5 MG TABLET 10 MG PO (09:01)
[2020-09-12] MEDS: TOLNAFTATE 1% POWDER 45 GM BTL 1 APPLIC TOPICAL ×2 (09:02→20:18)
[2020-09-12 09:54] LABS: Glucose Point of Care 58 mg/dl (65-105)
[2020-09-12 10:42] LABS: Glucose Point of Care 105 mg/dl (65-105)
[2020-09-12] MEDS: MORPHINE SULFATE (*CRX) 2 MG/ML INJ IV PUSH ×2 (11:57→18:02)
[2020-09-12] MEDS: BENZONATATE 100 MG CAPSULE PO ×2 (11:58→17:58)
[2020-09-12] MEDS: guaiFENesin 12 HR 600 MG TABCR PO ×2 (11:58→20:17)
--- NOTE | 2020-09-12 12:22 | PM.IMPN ---
Progress Note: A&P Assessment and Plan (1) Diabetic foot ulcer: Code(s): E11.621 - Type 2 diabetes mellitus with foot ulcer; L97.509 - Non-pressure chronic ulcer of other part of unspecified foot with unspecified severity Status: Acute Assessment and Plan: as per diabetic stewardship patient was started on Primaxin and vancomycin. Blood and wound cultures have been taken. Dr. Root was notified and agreed to see the patient. An MRI is ordered for that right foot. 09/12/20 12:22 Patient is 70-year-old female with history of end-stage renal disease on hemodialysis, history of diabetes, had developed right foot ulcer and was seen by her chief program officer started on oral antibiotic but the wound was not healing it was more pain and erythematous, MRI of the foot did not show any osteomyelitis, patient is started on imipenem and vancomycin, patient be seen by her chief program officer further recommendation to follow. 09/09 today patient was seen by her chief program officer and had a bedside wound debridement and cleaning patient tolerated, chief program officer will take the patient to OR tomorrow for proper I and D of the foot and further recommendation to follow, the wound culture is growing Proteus mirabilis sensitivities is pending will continue imipenem and vancomycin, will continue to monitor will have a PT OT evaluate the patient and further recommendation to follow. 09/10 today patient is scheduled to be taken to OR by her chief program officer for deep cleaning of the wound, patient complains right foot, denies any fever or chills, patient will have scheduled dialysis, patient wound culture is growing Proteus mirabilis and Enterococcus species, Proteus mirabilis is resistant to imipenem and sensitive to Rocephin, will stop imipenem and start the patient on Rocephin, will continue to monitor will follow-up and further recommendation to follow. 09/11 patient was taken to OR on 09/10 and had surgical I&D and irrigation of the wound, today patient feeling better however has difficulty with ambulation patient will work with physical therapy, denies any fever or chills, patient will have scheduled dialysis, patient wound culture is growing Proteus mirabilis and Enterococcus species, Proteus mirabilis is resistant to imipenem and sensitive to Rocephin, will stop imipenem and start the patient on Rocephin, will continue to monitor will follow-up and further recommendation to follow. 09/12 today patient work with physical therapist and now out of the bed and sitting in the chair, still complains of pain in her right foot, patient will be seen by chief program officer tomorrow and evaluate to wound and further recommendation to follow, will CPM (2) Splenic infarction: Code(s): D73.5 - Infarction of spleen Status: Acute Assessment and Plan: Patient is on Eliquis will continue without. (3) Infarction of liver: Code(s): K76.3 - Infarction of liver Status: Acute Assessment and Plan: Continue with Eliquis. (4) Hypertension: Qualifiers: Hypertension type: essential hypertension Qualified Code(s): I10 - Essential (primary) hypertension Code(s): I10 - Essential (primary) hypertension Status: Chronic Assessment and Plan: Patient is slightly hypotensive at this time. On not sure if it is due to the pain medication of the infection. Her home medications were restarted for tomorrow morning. It looks like she is on Coreg and losartan and amlodipine. monitor electrolytes. (5) Diabetes: Code(s): E11.9 - Type 2 diabetes mellitus without complications Status: Acute Assessment and Plan: Accu-Cheks AC and HS. Continue with basal insulin Check A1c (6) End-stage renal disease on peritoneal dialysis: Code(s): N18.6 - End stage renal disease; Z99.2 - Dependence on renal dialysis Status: Acute Assessment and Plan: the patient used 6 do peritoneal dialysis but then developed peritonitis. S
[2020-09-12 13:19] LABS: Glucose Point of Care 78 mg/dl (65-105)
--- NOTE | 2020-09-12 13:23 | WPDPN ---
Progress Note: A&P Additional Plan day 2 s/p I&D right foot - I flushed the wound with sterile saline, I changed dressing with 4x4 gauze, Kerlix and HEIDI -Edema and calor resolving, still has periwound erythema noted. Abx beads adequately being resorbed. Wound is sobia. -Continue with IV abx, Intra-op cultures pending, superficial pre op cultures noted. -Consulted wound care nursing department to evaluate wound and assess for possibility of wound vac therapy as outpatient - WBC improving daily still elevated however 16k - Will continue to monitor until discharged on IV abx per ID/medicine - I will monitor the patient until discharged and monitor wound as outpatient. High risk for limb loss due to severity of infection. Dr. Salcido Exam Extrem: Ankle/foot/toe images: 1. I&d site of the right foot sobia margins of wound with some degree of fibrous tissue laterally and granular tissue. Proximal portion of wound with surgicel in place. Antibiotic beads withing central portion of wound. Significant loss of edema. Some degree of periwound erythema still present along with fruity malodor. No calor present. No purulence expressed. Objective Data Vital Signs Vital Signs: Vital Signs - 24 hr 09/11/20 13:28 09/11/20 13:30 09/11/20 13:45 Temperature 36.5 C Pulse Rate 60 59 L 59 L Respiratory Rate 18 Blood Pressure 121/60 140/45 L 163/58 H Pulse Oximetry 94 09/11/20 14:00 09/11/20 14:15 09/11/20 14:30 Temperature Pulse Rate 58 L 58 L 59 L Respiratory Rate Blood Pressure 150/56 H 136/57 L 117/55 L Pulse Oximetry 09/11/20 14:45 09/11/20 15:00 09/11/20 15:15 Temperature Pulse Rate 61 58 L 58 L Respiratory Rate Blood Pressure 153/98 H 141/62 H 138/65 Pulse Oximetry 09/11/20 15:30 09/11/20 15:45 09/11/20 16:00 Temperature Pulse Rate 57 L 59 L 57 L Respiratory Rate Blood Pressure 130/59 L 111/66 134/62 Pulse Oximetry 09/11/20 16:15 09/11/20 16:30 09/11/20 16:45 Temperature Pulse Rate 58 L 57 L 58 L Respiratory Rate Blood Pressure 113/63 107/56 L 114/50 L Pulse Oximetry 09/11/20 17:00 09/11/20 17:15 09/11/20 20:00 Temperature 36.8 C 36.4 C Pulse Rate 57 L 59 L 60 Respiratory Rate 20 18 Blood Pressure 125/87 137/68 111/46 L Pulse Oximetry 96 09/11/20 20:30 09/12/20 00:00 09/12/20 04:00 Temperature 36.7 C 36.0 C L Pulse Rate 60 59 L 56 L Respiratory Rate 17 18 Blood Pressure 116/50 L 133/53 L Pulse Oximetry 96 94 09/12/20 08:22 09/12/20 09:01 Temperature Pulse Rate 76 Respiratory Rate Blood Pressure Pulse Oximetry 93 Intake/Output Intake/Output: Intake & Output 09/09/20 09/10/20 09/11/20 09/12/20 23:59 23:59 23:59 23:59 Intake Total 2090 470 1700 480 Output Total 811 958 9074 Balance 1560 -130 -300 480 Meds/Results Medications: Active Medications Generic Name Dose Route Start Last Admin Trade Name Freq PRN Reason Stop Dose Admin Allopurinol 100 mg 09/08/20 08:00 09/12/20 09:01 Allopurinol 100 Mg Tablet PO 100 mg DAILY@0800 MICHELL Administration Amlodipine Besylate 10 mg 09/08/20 09:00 09/12/20 09:01 Amlodipine Besylate 5 Mg Tablet PO 10 mg DAILY MICHELL Administration Apixaban 2.5 mg 09/08/20 09:00 09/12/20 09:01 Apixaban 2.5 Mg Tablet PO 2.5 mg BID MICHELL Administration Atorvastatin Calcium 20 mg 09/08/20 09:00 09/12/20 09:01 Atorvastatin 20 Mg Tablet PO 20 mg DAILY MICHELL Administration Benzonatate 100 mg 09/12/20 09:29 09/12/20 11:58 Benzonatate 100 Mg Capsule PO 100 mg TID PRN Administration Cough Bupropion HCl 150 mg 09/08/20 09:00 09/12/20 09:01 Bupropion Hcl Sr (12 Hr) 150 Mg Tab PO 150 mg DAILY MICHELL Administration Buspirone HCl 15 mg 09/08/20 09:00 09/12/20 09:01 Buspirone Hcl 5 Mg Tablet PO 15 mg BID MICHELL Administration Calcium Acetate 667 mg 09/08/20 09:00 09/12/20 12:02 Calcium Acetate 667 Mg Tablet P
[2020-09-12 14:31] LABS: Erythrocyte Sedimentation Rate 114 mm/hr (0-20)
--- NOTE | 2020-09-12 14:41 | PM.PNNEP ---
Progress Note: A&P Assessment and Plan (1) End-stage renal disease (ESRD): Code(s): N18.6 - End stage renal disease Status: Chronic Assessment and Plan: HD yesterday and continue //Sunday dialysis schedule follow electrolytes, volume status, and clearance (2) Diabetic foot ulcer: Code(s): E11.621 - Type 2 diabetes mellitus with foot ulcer; L97.509 - Non-pressure chronic ulcer of other part of unspecified foot with unspecified severity Status: Acute Assessment and Plan: s/p bedside debridement s/p formal I&D in OR on 09/10/20 follow culture data (as noted) on antibiotics Podiatry following (3) Hypertension: Qualifiers: Hypertension type: essential hypertension Qualified Code(s): I10 - Essential (primary) hypertension Code(s): I10 - Essential (primary) hypertension Status: Chronic Assessment and Plan: reasonable control follow trend of hemodynamics (4) Anemia: Code(s): D64.9 - Anemia, unspecified Status: Chronic Assessment and Plan: due to ESRD, acute infection, and operative procedure Epogen [facility] HD follow trend of H/H (5) Diabetes: Code(s): E11.9 - Type 2 diabetes mellitus without complications Status: Acute Assessment and Plan: follow accuchecks on Lantus and SSI Will continue to follow. Subjective Date/time seen: 09/12/20 14:41 Tolerated dialysis yesterday without any issue or problems; pain control fluctuates in general but tolerating; no apparent issues or problems overnight or earlier today; working with PT/OT as tolerated; possible wound vac placement pending wound care nurse assessement. Exam Narrative: Exam Narrative: General: WD/WN female in NAD Heart: normal S1 and S2; no rub Lungs: clear to auscultation Abdomen: soft, nontender, nondistended, positive bowel sounds Extremities: no cyanosis or clubbing; trace edema Skin: right foot dressings in place Objective Data Vital Signs Vital Signs: Vital Signs Temp Pulse Resp BP Pulse Ox 09/12/20 09:01 76 09/12/20 08:22 93 09/12/20 04:00 36.0 C L 56 L 18 133/53 L 94 09/12/20 00:00 36.7 C 59 L 17 116/50 L 96 09/11/20 20:30 60 09/11/20 20:00 36.4 C 60 18 111/46 L 96 09/11/20 17:15 36.8 C 59 L 20 137/68 09/11/20 17:00 57 L 125/87 09/11/20 16:45 58 L 114/50 L 09/11/20 16:30 57 L 107/56 L 09/11/20 16:15 58 L 113/63 09/11/20 16:00 57 L 134/62 Intake/Output Intake/Output: Intake & Output 09/09/20 09/10/20 09/11/20 09/12/20 23:59 23:59 23:59 23:59 Intake Total 2090 470 1700 720 Output Total 946 512 2094 Balance 1560 -130 -300 720 Meds/Results Medications: Active Medications Generic Name Dose Route Start Last Admin Trade Name Freq PRN Reason Stop Dose Admin Allopurinol 100 mg 09/08/20 08:00 09/12/20 09:01 Allopurinol 100 Mg Tablet PO 100 mg DAILY@0800 MICHELL Administration Amlodipine Besylate 10 mg 09/08/20 09:00 09/12/20 09:01 Amlodipine Besylate 5 Mg Tablet PO 10 mg DAILY MICHELL Administration Apixaban 2.5 mg 09/08/20 09:00 09/12/20 09:01 Apixaban 2.5 Mg Tablet PO 2.5 mg BID MICHELL Administration Atorvastatin Calcium 20 mg 09/08/20 09:00 09/12/20 09:01 Atorvastatin 20 Mg Tablet PO 20 mg DAILY MICHELL Administration Benzonatate 100 mg 09/12/20 09:29 09/12/20 11:58 Benzonatate 100 Mg Capsule PO 100 mg TID PRN Administration Cough Bupropion HCl 150 mg 09/08/20 09:00 09/12/20 09:01 Bupropion Hcl Sr (12 Hr) 150 Mg Tab PO 150 mg DAILY MICHELL Administration Buspirone HCl 15 mg 09/08/20 09:00 09/12/20 09:01 Buspirone Hcl 5 Mg Tablet PO 15 mg BID MICHELL Administration Calcium Acetate 667 mg 09/08/20 09:00 09/12/20 12:02 Calcium Acetate 667 Mg Tablet PO 667 mg TID MICHELL Administration Carvedilol 25 mg 09/07/20 23:55 09/12/20 09:01 Carvedilol 25
[2020-09-12 18:59] LABS: Glucose Point of Care 95 mg/dl (65-105)
[2020-09-12] MEDS: traMADol HCL (*CRX) 50 MG TABLET PO (19:32)
[2020-09-12] MEDS: LOSARTAN POTASSIUM 100 MG TABLET PO (20:18)
[2020-09-12 22:15] LABS: Glucose Point of Care 86 mg/dl (65-105)
[2020-09-13] VITALS (8 sets, daily range): BP systolic 122–135; BP diastolic 53–62; PULSE 55–64; RESP 16–24; TEMP 35.8–36.3; O2SAT 91–96
[2020-09-13] MEDS: MORPHINE SULFATE (*CRX) 2 MG/ML INJ IV PUSH ×2 (02:20→10:40)
[2020-09-13 05:50] LABS: Basophils Absolute Auto 0.1 K/mm3 (0.0-0.1); Basophils Percent Auto 0.5 % (0.2-1.2); Eosinophils Absolute Auto 0.3 K/mm3 (0-0.3); Eosinophils Percent Auto 1.6 % (0-4.4); Hematocrit 30.4 % (37.0-47.0); Hemoglobin 9.2 g/dL (12.0-15.0); Immature Granulocyte Absolute 0.52 K/mm3 (0.00-0.031); Immature Granulocyte Percent A 2.8 % (0-0.5); Lymphocytes Percent Auto 4.4 % (18.3-44.2); Mean Corpuscular HGB Conc 30.3 g/dl (32-36); Mean Corpuscular Hemoglobin 31.2 pg (26-34); Mean Corpuscular Volume 103.1 fl (80-100); Mean Platelet Volume 10.8 fl (7.4-10.4); Monocytes Absolute Auto 1.1 K/mm3 (0.1-0.6); Neutrophils Absolute Auto 15.6 K/mm3 (1.3-6.7); Neutrophils Percent Auto 84.7 % (45.5-73.1); Platelet Count Result 241 k/mm3 (150-375); Red Blood Count 2.95 M/mm3 (4.2-5.4); Red Cell Distribution Width 16.5 % (11.5-14.5); White Blood Count 18.4 K/mm3 (4.5-10.0)
[2020-09-13 06:02] LABS: Alanine Aminotransferase 30 U/L (4-35); Albumin Level 3.1 g/dL (3.5-5.1); Alkaline Phosphatase 247 U/L (38-126); Anion Gap 8 mmol/L (8-16); Aspartate Amino Transferase 46 U/L (14-36); Bilirubin,Total 0.9 mg/dL (0.2-1.3); Blood Urea Nitrogen 29 mg/dL (7-17); Calcium 9.4 mg/dL (8.4-10.2); Carbon Dioxide 28 mmol/L (22-30); Chloride 97 mmol/L (98-107); Estimated CRCL calculation 13 ml/min; Estimated Glomerular Filt Rate 9; Glucose 77 mg/dL (65-105); Potassium 4.4 mmol/L (3.4-5.0); Sodium 133 mmol/L (137-145)
[2020-09-13 06:25] LABS: Vancomycin Random 20.5 ug/mL (10-20)
[2020-09-13 07:27] LABS: Glucose Point of Care 70 mg/dl (65-105)
[2020-09-13] MEDS: APIXABAN 2.5 MG TABLET PO ×2 (08:01→17:27)
[2020-09-13] MEDS: buPROPion HCL SR (12 HR) 150 MG TAB PO (08:02)
[2020-09-13] MEDS: amLODIPine BESYLATE 5 MG TABLET 10 MG PO (08:02)
[2020-09-13] MEDS: BENZONATATE 100 MG CAPSULE PO ×2 (08:02→20:24)
[2020-09-13] MEDS: busPIRone HCL 5 MG TABLET 15 MG PO ×2 (08:02→17:28)
[2020-09-13] MEDS: allopurinoL 100 MG TABLET PO (08:03)
[2020-09-13] MEDS: carvediloL 25 MG TABLET PO ×2 (08:03→20:25)
[2020-09-13] MEDS: ATORVASTATIN 20 MG TABLET PO (08:03)
[2020-09-13] MEDS: DOCUSATE SODIUM 100 MG CAPSULE PO ×2 (08:03→20:24)
[2020-09-13] MEDS: polyethylene glycoL 3350 17 GM POWD.PACK PO (08:04)
[2020-09-13] MEDS: TOLNAFTATE 1% POWDER 45 GM BTL 1 APPLIC TOPICAL ×2 (08:04→20:27)
[2020-09-13] MEDS: guaiFENesin 12 HR 600 MG TABCR PO ×2 (08:04→20:24)
[2020-09-13] MEDS: traMADol HCL (*CRX) 50 MG TABLET PO ×2 (08:37→17:33)
[2020-09-13] MEDS: CALCIUM ACETATE 667 MG TABLET PO ×3 (08:37→17:27)
--- NOTE | 2020-09-13 10:46 | PC.NURSE ---
Spoke to about the patient's wound culture results and current antibiotics.
--- NOTE | 2020-09-13 11:10 | P.CDI_ITS ---
CDI Query Clarification Request Dr. Salicdo, Further information is required for the two I&D procedures performed on the right foot. For both the bedside procedure (on 09/09/20) and the OR procedure (on 09/10/20). Please make an addendum on progress note from 09/09 and op note containing the following information: * excisional versus nonexcisional * depth of debridement (skin, subcutaneous tissue, muscle, bone) Thank you!
[2020-09-13 12:07] LABS: Glucose Point of Care 139 mg/dl (65-105)
--- NOTE | 2020-09-13 15:21 | PM.IMPN ---
Progress Note: A&P Assessment and Plan (1) Diabetic foot ulcer: Code(s): E11.621 - Type 2 diabetes mellitus with foot ulcer; L97.509 - Non-pressure chronic ulcer of other part of unspecified foot with unspecified severity Status: Acute Assessment and Plan: as per diabetic stewardship patient was started on Primaxin and vancomycin. Blood and wound cultures have been taken. Dr. Root was notified and agreed to see the patient. An MRI is ordered for that right foot. 09/13/20 15:21 Patient is 70-year-old female with history of end-stage renal disease on hemodialysis, history of diabetes, had developed right foot ulcer and was seen by her stop attacher started on oral antibiotic but the wound was not healing it was more pain and erythematous, MRI of the foot did not show any osteomyelitis, patient is started on imipenem and vancomycin, patient be seen by her stop attacher further recommendation to follow. 09/09 today patient was seen by her stop attacher and had a bedside wound debridement and cleaning patient tolerated, stop attacher will take the patient to OR tomorrow for proper I and D of the foot and further recommendation to follow, the wound culture is growing Proteus mirabilis sensitivities is pending will continue imipenem and vancomycin, will continue to monitor will have a PT OT evaluate the patient and further recommendation to follow. 09/10 today patient is scheduled to be taken to OR by her stop attacher for deep cleaning of the wound, patient complains right foot, denies any fever or chills, patient will have scheduled dialysis, patient wound culture is growing Proteus mirabilis and Enterococcus species, Proteus mirabilis is resistant to imipenem and sensitive to Rocephin, will stop imipenem and start the patient on Rocephin, will continue to monitor will follow-up and further recommendation to follow. 09/11 patient was taken to OR on 09/10 and had surgical I&D and irrigation of the wound, today patient feeling better however has difficulty with ambulation patient will work with physical therapy, denies any fever or chills, patient will have scheduled dialysis, patient wound culture is growing Proteus mirabilis and Enterococcus species, Proteus mirabilis is resistant to imipenem and sensitive to Rocephin, will stop imipenem and start the patient on Rocephin, will continue to monitor will follow-up and further recommendation to follow. 09/12 today patient work with physical therapist and now out of the bed and sitting in the chair, still complains of pain in her right foot, patient will be seen by stop attacher tomorrow and evaluate to wound and further recommendation to follow, will CPM. 09/13 today wound team is present in the room and wound is open and antibiotic beads are visible in the wound, there is no erythema nor any drainage, wound team will place wound vac, stop attacher requesting opinion of id to further stratify antibiotics management and further recommendation to follow, will be seen by Nephrology and will have scheduled dialysis, clinically stable will continue present management. (2) Splenic infarction: Code(s): D73.5 - Infarction of spleen Status: Acute Assessment and Plan: Patient is on Eliquis will continue without. (3) Infarction of liver: Code(s): K76.3 - Infarction of liver Status: Acute Assessment and Plan: Continue with Eliquis. (4) Hypertension: Qualifiers: Hypertension type: essential hypertension Qualified Code(s): I10 - Essential (primary) hypertension Code(s): I10 - Essential (primary) hypertension Status: Chronic Assessment and Plan: Patient is slightly hypotensive at this time. On not sure if it is due to the pain medication of the infection. Her home medications were restarted for tomorrow morning. It looks like she is on Coreg and losartan and amlodipine. monitor electrolytes. (5) Diabetes: Code(s): E11.9 - Type 2 clara
--- NOTE | 2020-09-13 15:38 | PM.PNNEP ---
Progress Note: A&P Assessment and Plan (1) End-stage renal disease (ESRD): Code(s): N18.6 - End stage renal disease Status: Chronic Assessment and Plan: HD tomorrow and continue //Sunday dialysis schedule follow electrolytes, volume status, and clearance (2) Diabetic foot ulcer: Code(s): E11.621 - Type 2 diabetes mellitus with foot ulcer; L97.509 - Non-pressure chronic ulcer of other part of unspecified foot with unspecified severity Status: Acute Assessment and Plan: s/p bedside debridement s/p formal I&D in OR on 09/10/20 follow culture data (as noted) on antibiotics Infectious Disease consultation Podiatry following (3) Hypertension: Qualifiers: Hypertension type: essential hypertension Qualified Code(s): I10 - Essential (primary) hypertension Code(s): I10 - Essential (primary) hypertension Status: Chronic Assessment and Plan: reasonable control follow trend of hemodynamics (4) Anemia: Code(s): D64.9 - Anemia, unspecified Status: Chronic Assessment and Plan: due to ESRD, acute infection, and operative procedure [facility] HD follow trend of H/H (5) Diabetes: Code(s): E11.9 - Type 2 diabetes mellitus without complications Status: Acute Assessment and Plan: follow accuchecks on Lantus and SSI Will continue to follow. Subjective Date/time seen: 09/13/20 15:38 Seems to be doing fairly well at this time; no issues or events overnight or earlier this AM; wound vac in place; pain control appears reasonably; no acute distress voiced at the time of my visit. Exam Narrative: Exam Narrative: General: WD/WN female in NAD Heart: normal S1 and S2; no rub Lungs: clear to auscultation Abdomen: soft, nontender, nondistended, positive bowel sounds Extremities: no cyanosis or clubbing; trace edema Skin: right foot wound vac in place Objective Data Vital Signs Vital Signs: Vital Signs Temp Pulse Resp BP Pulse Ox 09/13/20 14:25 35.9 C L 56 L 16 122/57 L 93 09/13/20 13:40 93 09/13/20 08:03 58 L 09/13/20 08:00 36.1 C L 58 L 18 130/57 L 96 09/13/20 03:53 35.9 C L 55 L 18 128/59 L 94 09/13/20 00:00 36.3 C L 64 18 135/62 96 09/12/20 20:40 36.3 C L 78 18 156/61 H 100 09/12/20 20:17 78 09/12/20 20:00 36.3 C L 78 16 149/71 H 100 09/12/20 17:59 100/45 L Intake/Output Intake/Output: Intake & Output 09/10/20 09/11/20 09/12/20 09/13/20 23:59 23:59 23:59 23:59 Intake Total 470 1700 1440 840 Output Total 600 2000 Balance -130 -300 1440 840 Meds/Results Medications: Active Medications Generic Name Dose Route Start Last Admin Trade Name Freq PRN Reason Stop Dose Admin Allopurinol 100 mg 09/08/20 08:00 09/13/20 08:03 Allopurinol 100 Mg Tablet PO 100 mg DAILY@0800 MICHELL Administration Amlodipine Besylate 10 mg 09/08/20 09:00 09/13/20 08:02 Amlodipine Besylate 5 Mg Tablet PO 10 mg DAILY MICHELL Administration Apixaban 2.5 mg 09/08/20 09:00 09/13/20 17:27 Apixaban 2.5 Mg Tablet PO 2.5 mg BID MICHELL Administration Atorvastatin Calcium 20 mg 09/08/20 09:00 09/13/20 08:03 Atorvastatin 20 Mg Tablet PO 20 mg DAILY MICHELL Administration Benzonatate 100 mg 09/12/20 09:29 09/13/20 08:02 Benzonatate 100 Mg Capsule PO 100 mg TID PRN Administration Cough Bupropion HCl 150 mg 09/08/20 09:00 09/13/20 08:02 Bupropion Hcl Sr (12 Hr) 150 Mg Tab PO 150 mg DAILY MICHELL Administration Buspirone HCl 15 mg 09/08/20 09:00 09/13/20 17:28 Buspirone Hcl 5 Mg Tablet PO 15 mg BID MICHELL Administration Calcium Acetate 667 mg 09/08/20 09:00 09/13/20 17:27 Calcium Acetate 667 Mg Tablet PO 667 mg TID MICHELL Administration Carvedilol 25 mg 09/07/20 23:55 09/13/20 08:03 Carvedilol 25 Mg Tablet PO 25 mg Q12HR MICHELL Administration Dextrose 12.5 gm 2
--- NOTE | 2020-09-13 17:10 | WPDPN ---
Progress Note: A&P Additional Plan -severe diabetic foot infection with abscess/myonecrosis -day 3 s/p incision and debridement to the deep fascial layer - WBC up to 18k, yesterday 16k - ID consulted intra op cultures showing Preteus Mirabilis 1. Proteus Mirabilis M.I.C. RX --------- --- Amoxacillin/Clavulanate <=2 S Ampicillin <=2 S Ampicillin/Sulbactam <=2 S Cefazolin <=4 NR For infections other than uncomplicated UTI caused by E. coli, K. pneumoniae or P. mirabilis: Cefazolin is resistant if JUAN > or = 8 mcg/mL. (Distinguishing susceptible versus intermediate for isolates with JUAN < or = 4 mcg/mL requires additional testing.) Cefepime <=1 S Ceftriaxone <=1 S Ciprofloxacin <=0.25 S Levofloxacin <=0.12 S Gentamycin <=1 S Imipenem 2 I Piperacillin/Tazobactam <=4 S Tobramycin <=1 S Trimethoprim/Sulfamethoxazole <=20 S Legend: S = Susceptible I = Intermediate R = Resistant NS = Not susceptible * = Not tested NR = Not reported NN = See antimicrobic comments - wound vac in place will be changed 3x week - Will continue to monitor patient if leukocytosis goes up tomorrow will consider general surgery evaluation Dr. Salcido Exam Extrem: Other: Wound vac in place to the plantar right midfoot. No calor present. Va Objective Data Vital Signs Vital Signs: Vital Signs - 24 hr 09/12/20 17:26 09/12/20 17:59 09/12/20 20:00 Temperature 36.1 C L 36.3 C L Pulse Rate 67 78 Respiratory Rate 18 16 Blood Pressure 100/45 L 149/71 H Pulse Oximetry 94 100 09/12/20 20:17 09/12/20 20:40 09/13/20 00:00 Temperature 36.3 C L 36.3 C L Pulse Rate 78 78 64 Respiratory Rate 18 18 Blood Pressure 156/61 H 135/62 Pulse Oximetry 100 96 09/13/20 03:53 09/13/20 08:00 09/13/20 08:03 Temperature 35.9 C L 36.1 C L Pulse Rate 55 L 58 L 58 L Respiratory Rate 18 18 Blood Pressure 128/59 L 130/57 L Pulse Oximetry 94 96 09/13/20 13:40 09/13/20 14:25 Temperature 35.9 C L Pulse Rate 56 L Respiratory Rate 16 Blood Pressure 122/57 L Pulse Oximetry 93 93 Intake/Output Intake/Output: Intake & Output 09/10/20 09/11/20 09/12/20 09/13/20 23:59 23:59 23:59 23:59 Intake Total 470 1700 1440 840 Output Total 600 2000 Balance -130 -300 1440 840 Meds/Results Medications: Active Medications Generic Name Dose Route Start Last Admin Trade Name Freq PRN Reason Stop Dose Admin Allopurinol 100 mg 09/08/20 08:00 09/13/20 08:03 Allopurinol 100 Mg Tablet PO 100 mg DAILY@0800 MICHELL Administration Amlodipine Besylate 10 mg 09/08/20 09:00 09/13/20 08:02 Amlodipine Besylate 5 Mg Tablet PO 10 mg DAILY MICHELL Administration Apixaban 2.5 mg 09/08/20 09:00 09/13/20 08:01 Apixaban 2.5 Mg Tablet PO 2.5 mg BID MICHELL Administration Atorvastatin Calcium 20 mg 09/08/20 09:00 09/13/20 08:03 Atorvastatin 20 Mg Tablet PO 20 mg DAILY MICHELL Administration Benzonatate 100 mg 09/12/20 09:29 09/13/20 08:02 Benzonatate 100 Mg Capsule PO 100 mg TID PRN Administration Cough Bupropion HCl 150 mg 09/08/20 09:00 09/13/20 08:02 Bupropion Hcl Sr (12 Hr) 150
[2020-09-13 17:50] LABS: Glucose Point of Care 168 mg/dl (65-105)
[2020-09-13] MEDS: LOSARTAN POTASSIUM 100 MG TABLET PO (20:24)
[2020-09-13] MEDS: INSULIN GLARGINE (*BKC) 100 UNITS/ML 48 UNITS SUB-Q (20:31)
[2020-09-13 21:20] LABS: Glucose Point of Care 202 mg/dl (65-105)
[2020-09-14] VITALS (23 sets, daily range): BP systolic 103–146; BP diastolic 48–67; PULSE 54–62; RESP 16–22; TEMP 35.6–37.1; O2SAT 92–97
[2020-09-14 06:13] LABS: Basophils Absolute Auto 0.1 K/mm3 (0.0-0.1); Basophils Percent Auto 0.6 % (0.2-1.2); Eosinophils Absolute Auto 0.3 K/mm3 (0-0.3); Eosinophils Percent Auto 1.8 % (0-4.4); Hematocrit 29.3 % (37.0-47.0); Immature Granulocyte Absolute 0.78 K/mm3 (0.00-0.031); Immature Granulocyte Percent A 4.5 % (0-0.5); Lymphocytes Absolute Auto 0.71 K/mm3 (0.9-3.2); Lymphocytes Percent Auto 4.1 % (18.3-44.2); Mean Corpuscular HGB Conc 30.7 g/dl (32-36); Mean Corpuscular Hemoglobin 30.8 pg (26-34); Mean Corpuscular Volume 100.3 fl (80-100); Mean Platelet Volume 10.8 fl (7.4-10.4); Monocytes Absolute Auto 0.9 K/mm3 (0.1-0.6); Monocytes Percent Auto 5.3 % (2.6-8.5); Neutrophils Absolute Auto 14.5 K/mm3 (1.3-6.7); Neutrophils Percent Auto 83.7 % (45.5-73.1); Platelet Count Result 257 k/mm3 (150-375); Red Blood Count 2.92 M/mm3 (4.2-5.4); Red Cell Distribution Width 16.3 % (11.5-14.5); White Blood Count 17.3 K/mm3 (4.5-10.0)
[2020-09-14 06:25] LABS: Alanine Aminotransferase 23 U/L (4-35); Albumin Level 3.1 g/dL (3.5-5.1); Alkaline Phosphatase 249 U/L (38-126); Anion Gap 10 mmol/L (8-16); Aspartate Amino Transferase 32 U/L (14-36); Bilirubin,Total 0.9 mg/dL (0.2-1.3); Blood Urea Nitrogen 38 mg/dL (7-17); Calcium 9.7 mg/dL (8.4-10.2); Carbon Dioxide 26 mmol/L (22-30); Chloride 95 mmol/L (98-107); Estimated CRCL calculation 11 ml/min; Estimated Glomerular Filt Rate 8; Glucose 106 mg/dL (65-105); Potassium 4.8 mmol/L (3.4-5.0); Sodium 131 mmol/L (137-145)
[2020-09-14] MEDS: traMADol HCL (*CRX) 50 MG TABLET PO (06:56)
[2020-09-14 08:03] LABS: Glucose Point of Care 78 mg/dl (65-105)
--- NOTE | 2020-09-14 08:12 | WPDPN ---
Progress Note: A&P Additional Plan - day 5 s/p bedside I&D and day 4 s/p OR I&D (leukocytosis persists despite aggressive serial debridement with IV antibiotics and antibiotic bead packing -The patient does not have constitutional symptoms however pain persists to her neuropathic foot - I removed wound vac to evaluate the wound, the wound appears to be sobia with some slough and granular tissue around the margin of the wound. I dressed with 4x4 gauze and Kerlix roll to allow consulting physicians to evaluate wound. -The patient has increased erythema along the periphery of the wound concerning for continued infection -ID will help with antibiotic management -General surgery consulted for evaluation, I discussed the severity of infection with the patient and the patient's son Satya I explained that she is high risk for limb loss. Will continue to follow patient, Dr. Salcido Exam Extrem: Other: Wound sobia with some degree of granulation to wound however the patient does have an increase in periwound erythema extending to the heel and medial ankle. Objective Data Vital Signs Vital Signs: Vital Signs - 24 hr 09/13/20 13:40 09/13/20 14:25 09/13/20 20:06 Temperature 35.9 C L 35.8 C L Pulse Rate 56 L 59 L Respiratory Rate 16 24 H Blood Pressure 122/57 L 128/53 L Pulse Oximetry 93 93 91 09/13/20 20:25 09/14/20 05:50 Temperature 35.8 C L Pulse Rate 60 55 L Respiratory Rate 18 Blood Pressure 146/60 H Pulse Oximetry 96 Intake/Output Intake/Output: Intake & Output 09/11/20 09/12/20 09/13/20 09/14/20 23:59 23:59 23:59 23:59 Intake Total 1700 1440 1730 200 Output Total 1999 Balance -300 1440 1730 200 Meds/Results Medications: Active Medications Generic Name Dose Route Start Last Admin Trade Name Freq PRN Reason Stop Dose Admin Allopurinol 100 mg 09/08/20 08:00 09/13/20 08:03 Allopurinol 100 Mg Tablet PO 100 mg DAILY@0800 MICHELL Administration Amlodipine Besylate 10 mg 09/08/20 09:00 09/13/20 08:02 Amlodipine Besylate 5 Mg Tablet PO 10 mg DAILY MICHELL Administration Apixaban 2.5 mg 09/08/20 09:00 09/13/20 17:27 Apixaban 2.5 Mg Tablet PO 2.5 mg BID MICHELL Administration Atorvastatin Calcium 20 mg 09/08/20 09:00 09/13/20 08:03 Atorvastatin 20 Mg Tablet PO 20 mg DAILY MICHELL Administration Benzonatate 100 mg 09/12/20 09:29 09/13/20 20:24 Benzonatate 100 Mg Capsule PO 100 mg TID PRN Administration Cough Bupropion HCl 150 mg 09/08/20 09:00 09/13/20 08:02 Bupropion Hcl Sr (12 Hr) 150 Mg Tab PO 150 mg DAILY MICHELL Administration Buspirone HCl 15 mg 09/08/20 09:00 09/13/20 17:28 Buspirone Hcl 5 Mg Tablet PO 15 mg BID MICHELL Administration Calcium Acetate 667 mg 09/08/20 09:00 09/13/20 17:27 Calcium Acetate 667 Mg Tablet PO 667 mg TID MICHELL Administration Carvedilol 25 mg 09/07/20 23:55 09/13/20 20:25 Carvedilol 25 Mg Tablet PO 25 mg Q12HR MICHELL Administration Dextrose 12.5 gm 09/07/20 23:54 Dextrose 50% 25 Gm/50 Ml Syringe IV PUSH PRN PRN Hypoglycemia Protocol Docusate Sodium 100 mg 09/12/20 09:00 09/13/20 20:24 Docusate Sodium 100 Mg Capsule PO 100 mg Q12HR MICHELL Administration Famotidine 20 mg 09/08/20 09:00 09/08/20 13:32 Famotidine 20 Mg/2 Ml Vial IV PUSH 20 mg DAILY PRN Administration AFTER DIALYSIS Glucagon 1 mg 09/07/20 23:54 Glucagon For Inj 1 Mg Vial IM PRN PRN Hypoglycemia Protocol Glucose 15 gm 09/07/20 23:54 09/10/20 17:47 Glucose Oral Gel 15 Gm Of Glucse In 37.5 Gm Tube PO 15 gm PRN PRN Administration Hypoglycemia Protocol Guaifenesin 600 mg 09/12/20 09:00 09/13/20 20:24 Guaifenesin 12 Hr 600 Mg Tabcr PO 600 mg Q12HR MICHELL Administration Vancomycin HCl 1,500 mg in 500 mls @ 333.333 mls/hr 09/07/20 14:41 Vancomycin 1,500 Mg/D5w 500 Ml IVPB PRN PRN vancomycin protocol Dextrose 1
[2020-09-14] MEDS: amLODIPine BESYLATE 5 MG TABLET 10 MG PO (08:35)
[2020-09-14] MEDS: APIXABAN 2.5 MG TABLET PO (08:35)
[2020-09-14] MEDS: polyethylene glycoL 3350 17 GM POWD.PACK PO (08:35)
[2020-09-14] MEDS: buPROPion HCL SR (12 HR) 150 MG TAB PO (08:35)
[2020-09-14] MEDS: BENZONATATE 100 MG CAPSULE PO (08:36)
[2020-09-14] MEDS: CALCIUM ACETATE 667 MG TABLET PO ×3 (08:36→17:26)
[2020-09-14] MEDS: busPIRone HCL 5 MG TABLET 15 MG PO ×2 (08:36→17:26)
[2020-09-14] MEDS: guaiFENesin 12 HR 600 MG TABCR PO (08:37)
[2020-09-14] MEDS: carvediloL 25 MG TABLET PO ×2 (08:37→22:49)
[2020-09-14] MEDS: allopurinoL 100 MG TABLET PO (08:37)
[2020-09-14] MEDS: DOCUSATE SODIUM 100 MG CAPSULE PO (08:37)
[2020-09-14] MEDS: ATORVASTATIN 20 MG TABLET PO (08:38)
[2020-09-14] MEDS: TOLNAFTATE 1% POWDER 45 GM BTL 1 APPLIC TOPICAL ×2 (08:40→22:03)
[2020-09-14] MEDS: EPOETIN ALFA-EPBX 10,000 UNITS/ML VIAL 10000 UNITS IV PUSH (10:11)
--- NOTE | 2020-09-14 10:23 | PCOTNOTE ---
Patient unavailable, receiving dialysis. Will check back later to see for OT, or continue plan of care tomorrow, 09/15/20.
--- NOTE | 2020-09-14 11:13 | PCPTNOTE ---
Unable to see patient for PT at this time, due to patient out of room for dialysis. Will check back at a later time.
--- NOTE | 2020-09-14 13:25 | PCPTNOTE ---
Attempted to see pt for PT session this afternoon but pt is currently out of the room for dialysis.
[2020-09-14] MEDS: MORPHINE SULFATE (*CRX) 2 MG/ML INJ IV PUSH ×2 (13:39→17:30)
[2020-09-14 13:49] LABS: Glucose Point of Care 77 mg/dl (65-105)
--- NOTE | 2020-09-14 14:04 | WPDINFPN2 ---
Progress Note: A&P Assessment and Plan (1) Diabetic foot ulcer: Code(s): E11.621 - Type 2 diabetes mellitus with foot ulcer; L97.509 - Non-pressure chronic ulcer of other part of unspecified foot with unspecified severity Status: Acute Assessment and Plan: 1. Diabetic foot ulcer, no cellulitis but at risk for OM 2. Chronic leukocytosis 3. CRF REC Levofloxacin # 1 / 30 days oral. Subjective Date/time seen: 09/14/20 14:04 Objective Data Vital Signs Vital Signs: Vital Signs - 24 hr 09/13/20 14:25 09/13/20 20:06 09/13/20 20:25 Temperature 35.9 C L 35.8 C L Pulse Rate 56 L 59 L 60 Respiratory Rate 16 24 H Blood Pressure 122/57 L 128/53 L Pulse Oximetry 93 91 09/14/20 05:50 09/14/20 08:00 09/14/20 08:37 Temperature 35.8 C L 35.6 C L Pulse Rate 55 L 57 L 60 Respiratory Rate 18 20 Blood Pressure 146/60 H 123/62 Pulse Oximetry 96 94 09/14/20 09:18 09/14/20 09:23 09/14/20 09:30 Temperature 37.1 C Pulse Rate 59 L 60 59 L Respiratory Rate 22 H Blood Pressure 103/56 L 120/58 L 119/57 L Pulse Oximetry 09/14/20 09:45 09/14/20 10:00 09/14/20 10:15 Temperature Pulse Rate 57 L 58 L 58 L Respiratory Rate Blood Pressure 121/50 L 116/54 L 117/57 L Pulse Oximetry 09/14/20 10:30 09/14/20 11:01 09/14/20 11:15 Temperature Pulse Rate 57 L 58 L 56 L Respiratory Rate Blood Pressure 127/62 104/49 L 114/48 L Pulse Oximetry 09/14/20 11:31 09/14/20 12:00 09/14/20 12:15 Temperature Pulse Rate 61 57 L 60 Respiratory Rate Blood Pressure 119/55 L 112/48 L 112/56 L Pulse Oximetry 09/14/20 12:30 09/14/20 12:45 Temperature Pulse Rate 56 L 59 L Respiratory Rate Blood Pressure 118/56 L 131/65 Pulse Oximetry Intake/Output Intake/Output: Intake & Output 0609/12/20 09/13/20 09/14/20 23:59 23:59 23:59 23:59 Intake Total 1700 1440 1730 320 Output Total 1999 Balance -300 1440 1730 320 Meds/Results Medications: Active Medications Generic Name Dose Route Start Last Admin Trade Name Freq PRN Reason Stop Dose Admin Allopurinol 100 mg 09/08/20 08:00 09/14/20 08:37 Allopurinol 100 Mg Tablet PO 100 mg DAILY@0800 MICHELL Administration Amlodipine Besylate 10 mg 09/08/20 09:00 09/14/20 08:35 Amlodipine Besylate 5 Mg Tablet PO 10 mg DAILY MICHELL Administration Apixaban 2.5 mg 09/08/20 09:00 09/14/20 08:35 Apixaban 2.5 Mg Tablet PO 2.5 mg BID MICHELL Administration Atorvastatin Calcium 20 mg 09/08/20 09:00 09/14/20 08:38 Atorvastatin 20 Mg Tablet PO 20 mg DAILY MICHELL Administration Benzonatate 100 mg 09/12/20 09:29 09/14/20 08:36 Benzonatate 100 Mg Capsule PO 100 mg TID PRN Administration Cough Bupropion HCl 150 mg 09/08/20 09:00 09/14/20 08:35 Bupropion Hcl Sr (12 Hr) 150 Mg Tab PO 150 mg DAILY MICHELL Administration Buspirone HCl 15 mg 09/08/20 09:00 09/14/20 08:36 Buspirone Hcl 5 Mg Tablet PO 15 mg BID MICHELL Administration Calcium Acetate 667 mg 09/08/20 09:00 09/14/20 13:40 Calcium Acetate 667 Mg Tablet PO 667 mg TID MICHELL Administration Carvedilol 25 mg 09/07/20 23:55 09/14/20 08:37 Carvedilol 25 Mg Tablet PO 25 mg Q12HR MICHELL Administration Dextrose 12.5 gm 09/07/20 23:54 Dextrose 50% 25 Gm/50 Ml Syringe IV PUSH PRN PRN Hypoglycemia Protocol Docusate Sodium 100 mg 09/12/20 09:00 09/14/20 08:37 Docusate Sodium 100 Mg Capsule PO 100 mg Q12HR MICHELL Administration Epoetin Adalid-epbx 10,000 units 09/14/20 20:11 09/14/20 10:11 Epoetin Adalid-Epbx 10,000 Units/Ml Vial IV PUSH 09/14/20 20:12 10,000 units ONCE ONE Administration Famotidine 20 mg 09/08/20 09:00 09/08/20 13:32 Famotidine 20 Mg/2 Ml Vial IV PUSH 20 mg DAILY PRN Administration AFTER DIALYSIS Glucagon 1 mg 09/07/20 23:54 Glucagon For Inj 1 Mg Vial IM PRN PRN Hypoglycemia Protocol Glucose 15 gm 09/07/20
--- NOTE | 2020-09-14 14:08 | PCPTNOTE ---
Attempted to see patient for PT this afternoon, patient declined therapy due to not feeling well and vomiting. Will continue per plan of care.
--- NOTE | 2020-09-14 14:48 | PM.CNGS ---
Assessment and Plan Assessment and plan (1) Diabetic foot ulcer: Code(s): E11.621 - Type 2 diabetes mellitus with foot ulcer; L97.509 - Non-pressure chronic ulcer of other part of unspecified foot with unspecified severity Status: Acute Assessment and Plan: She has an infected right diabetic foot ulcer that is status post bedside debridement on 09/09/20 and surgical debridement with versajet use in the OR on 09/10/20. During surgery vancomycin antibiotic beads were placed in the wound. She is currently getting wet to dry dressing changes. Wound culture from surgery showed growth of proteus mirabilis. She is on IV Vancomycin and ID has been consulted. There is still necrotic tissue in majority of the wound bed with purulent drainage coming from an area of tunneling towards her heel. There is minimal improvement of her leukocytosis. Right foot x-ray and MRI on 09/08 showed no evidence of osteomyelitis, but she is at risk for such. There was also no evidence of soft tissue gas suggesting a necrotizing infection. We would recommend holding her apixaban and taking her again to the OR for excisional debridement and possible drainage of right foot abscess. Description of the procedure, risks, benefits, expected outcomes, and expected recovery were discussed with the patient in detail. All questions were answered. She is a high risk surgical candidate due to her multiple co-morbidities and chronic anticoagulation use, which I discussed with her as well. This being said, she may have an element of peripheral arterial disease that is contributing to poor healing. I discussed this with the patient. Could consider further vascular workup. Ultimately, if she continues to fail IV antibiotic treatment with surgical debridement, then she could potentially require either vascular surgery referral or even possible amputation. Continue antibiotics per ID, who was consulted today. Dr. Nunez plans on working on adding her onto the surgery schedule. Will make her NPO after midnight in case surgery can be scheduled for tomorrow. (2) Peripheral arterial disease: Code(s): I73.9 - Peripheral vascular disease, unspecified Status: Acute Assessment and Plan: She is at high risk for PAD and likely has an element of this given her co-morbidities. ABIs this admission were unable to be obtained due to inability to occlude the right brachial artery and could not assess the left due to her upper arm fistula. There was brisk systolic upstrokes at the bilateral posterior tibial and dorsalis pedis arteries, suggesting there is no high-grade stenosis, but there could still be mild to moderate stenosis. I spoke with her about the possibility of needing further vascular work-up and potential vascular surgery referral if she continues to have issues with healing. She has seen a vascular surgeon, Dr. Franks, at [facility] in the past for her fistula and would like to see him again if needed. She actually had an appointment with him for September 27 as a follow-up for her fistula, per the patient. (3) Cellulitis: Code(s): L03.90 - Cellulitis, unspecified Status: Acute Assessment and Plan: Localized erythema of the right foot. Sounds like there has been minimal improvement of this despite surgical debridement. WBC remains elevated but has showed some slight improvement. Continue antibiotics per ID, appreciate their recommendations. (4) Diabetes mellitus with hyperglycemia, with long-term current use of insulin: Qualifiers: Diabetes mellitus type: type 2 Qualified Code(s): E11.65 - Type 2 diabetes mellitus with hyperglycemia; Z79.4 - penitentiary (current) use of insulin Code(s): E11.65 - Type 2 diabetes mellitus with hyperglycemia; Z79.4 - extermination inspector (current) use of insulin Status: Acute Assessment and Plan: Last HgbA1C was 8.9 on this admission. Discussed the importance of glycemic control with the patient in regards to wound healing, inf
--- NOTE | 2020-09-14 14:57 | PCOTNOTE ---
Attempted to see patient for OT this afternoon, patient declined therapy due to not feeling sick and vomiting. Will continue per plan of care.
--- NOTE | 2020-09-14 15:20 | PM.PNNEP ---
Progress Note: A&P Assessment and Plan (1) End-stage renal disease (ESRD): Code(s): N18.6 - End stage renal disease Status: Chronic Assessment and Plan: HD today and continue //Sunday dialysis schedule follow electrolytes, volume status, and clearance (2) Diabetic foot ulcer: Code(s): E11.621 - Type 2 diabetes mellitus with foot ulcer; L97.509 - Non-pressure chronic ulcer of other part of unspecified foot with unspecified severity Status: Acute Assessment and Plan: s/p bedside debridement s/p formal I&D in OR on 09/10/20 follow culture data (as noted) on antibiotics Infectious Disease recommendations reviewed Podiatry following Surgery recommendations noted (3) Hypertension: Qualifiers: Hypertension type: essential hypertension Qualified Code(s): I10 - Essential (primary) hypertension Code(s): I10 - Essential (primary) hypertension Status: Chronic Assessment and Plan: reasonable control follow trend of hemodynamics (4) Anemia: Code(s): D64.9 - Anemia, unspecified Status: Chronic Assessment and Plan: due to ESRD, acute infection, and operative procedure [facility] HD follow trend of H/H (5) Diabetes: Code(s): E11.9 - Type 2 diabetes mellitus without complications Status: Acute Assessment and Plan: follow accuchecks on Lantus and SSI Will continue to follow. Subjective Date/time seen: 09/14/20 15:20 Tolerated dialysis treatment earlier today without any issues or problems; seen by Surgery and Infectious Disease regarding further debridement of right foot wound and antibiotic needs, respectively. Exam Narrative: Exam Narrative: General: WD/WN female in NAD Heart: normal S1 and S2; no rub Lungs: clear to auscultation Abdomen: soft, nontender, nondistended, positive bowel sounds Extremities: no cyanosis or clubbing; trace edema Skin: dressings in place Objective Data Vital Signs Vital Signs: Vital Signs Temp Pulse Resp BP Pulse Ox 09/14/20 13:10 36.8 C 59 L 20 131/64 09/14/20 12:56 54 L 129/61 09/14/20 12:45 59 L 131/65 09/14/20 12:30 56 L 118/56 L 09/14/20 12:15 60 112/56 L 09/14/20 12:00 35.9 C L 59 L 18 123/67 92 09/14/20 11:31 61 119/55 L 09/14/20 11:15 56 L 114/48 L 09/14/20 11:01 58 L 104/49 L 09/14/20 10:30 57 L 127/62 09/14/20 10:15 58 L 117/57 L 09/14/20 10:00 58 L 116/54 L 09/14/20 09:45 57 L 121/50 L 09/14/20 09:30 59 L 119/57 L 09/14/20 09:23 60 120/58 L 09/14/20 09:18 37.1 C 59 L 22 H 103/56 L 09/14/20 08:37 60 09/14/20 08:00 35.6 C L 57 L 20 123/62 94 09/14/20 05:50 35.8 C L 55 L 18 146/60 H 96 Intake/Output Intake/Output: Intake & Output 09/11/20 09/12/20 09/13/20 09/14/20 23:59 23:59 23:59 23:59 Intake Total 1700 1440 1730 590 Output Total 2000 2425 Balance -300 1440 1730 -1835 Meds/Results Medications: Active Medications Generic Name Dose Route Start Last Admin Trade Name Carrollq PRN Reason Stop Dose Admin Allopurinol 100 mg 09/08/20 08:00 09/14/20 08:37 Allopurinol 100 Mg Tablet PO 100 mg DAILY@0800 MICHELL Administration Amlodipine Besylate 10 mg 09/08/20 09:00 09/14/20 08:35 Amlodipine Besylate 5 Mg Tablet PO 10 mg DAILY MICHELL Administration Apixaban 2.5 mg 09/08/20 09:00 09/14/20 08:35 Apixaban 2.5 Mg Tablet PO 2.5 mg BID MICHELL Administration Atorvastatin Calcium 20 mg 09/08/20 09:00 09/14/20 08:38 Atorvastatin 20 Mg Tablet PO 20 mg DAILY MICHELL Administration Benzonatate 100 mg 09/12/20 09:29 09/14/20 08:36 Benzonatate 100 Mg Capsule PO 100 mg TID PRN Administration Cough Bupropion HCl 150 mg 09/08/20 09:00 09/14/20 08:35 Bupropion Hcl Sr (12 Hr) 150 Mg Tab PO 150 mg DAILY MICHELL Administration Buspirone HCl 15 mg 09/08/20 09:00
--- NOTE | 2020-09-14 16:47 | PM.IMPN ---
Progress Note: A&P Assessment and Plan (1) Diabetic foot ulcer: Code(s): E11.621 - Type 2 diabetes mellitus with foot ulcer; L97.509 - Non-pressure chronic ulcer of other part of unspecified foot with unspecified severity Status: Acute Assessment and Plan: as per diabetic stewardship patient was started on Primaxin and vancomycin. Blood and wound cultures have been taken. Dr. Root was notified and agreed to see the patient. An MRI is ordered for that right foot. 09/13/20 15:21 Patient is 70-year-old female with history of end-stage renal disease on hemodialysis, history of diabetes, had developed right foot ulcer and was seen by her inspector subassemblies started on oral antibiotic but the wound was not healing it was more pain and erythematous, MRI of the foot did not show any osteomyelitis, patient is started on imipenem and vancomycin, patient be seen by her inspector subassemblies further recommendation to follow. 09/09 today patient was seen by her inspector subassemblies and had a bedside wound debridement and cleaning patient tolerated, inspector subassemblies will take the patient to OR tomorrow for proper I and D of the foot and further recommendation to follow, the wound culture is growing Proteus mirabilis sensitivities is pending will continue imipenem and vancomycin, will continue to monitor will have a PT OT evaluate the patient and further recommendation to follow. 09/10 today patient is scheduled to be taken to OR by her inspector subassemblies for deep cleaning of the wound, patient complains right foot, denies any fever or chills, patient will have scheduled dialysis, patient wound culture is growing Proteus mirabilis and Enterococcus species, Proteus mirabilis is resistant to imipenem and sensitive to Rocephin, will stop imipenem and start the patient on Rocephin, will continue to monitor will follow-up and further recommendation to follow. 09/11 patient was taken to OR on 09/10 and had surgical I&D and irrigation of the wound, today patient feeling better however has difficulty with ambulation patient will work with physical therapy, denies any fever or chills, patient will have scheduled dialysis, patient wound culture is growing Proteus mirabilis and Enterococcus species, Proteus mirabilis is resistant to imipenem and sensitive to Rocephin, will stop imipenem and start the patient on Rocephin, will continue to monitor will follow-up and further recommendation to follow. 09/12 today patient work with physical therapist and now out of the bed and sitting in the chair, still complains of pain in her right foot, patient will be seen by inspector subassemblies tomorrow and evaluate to wound and further recommendation to follow, will CPM. 09/13 today wound team is present in the room and wound is open and antibiotic beads are visible in the wound, there is no erythema nor any drainage, wound team will place wound vac, inspector subassemblies requesting opinion of id to further stratify antibiotics management and further recommendation to follow, will be seen by Nephrology and will have scheduled dialysis, clinically stable will continue present management. 09/14 evaluated by surgery insisted further excisional debridement of her right foot ulcer and possible underlying abscess this is scheduled to be done tomorrow. Infectious Disease has been consulted and will continue antibiotic recommendation for infectious disease (2) Splenic infarction: Code(s): D73.5 - Infarction of spleen Status: Acute Assessment and Plan: Patient is on Eliquis will continue without. (3) Infarction of liver: Code(s): K76.3 - Infarction of liver Status: Acute Assessment and Plan: Continue with Eliquis. (4) Hypertension: Qualifiers: Hypertension type: essential hypertension Qualified Code(s): I10 - Essential (primary) hypertension Code(s): I10 - Essential (primary) hypertension Status: Chronic Assessment and Plan: continue home medication stable (5)
[2020-09-14 17:03] LABS: Glucose Point of Care 80 mg/dl (65-105)
[2020-09-14] MEDS: levoFLOXacin 250 MG TABLET PO (17:27)
[2020-09-14] MEDS: FAMOTIDINE 20 MG/2 ML VIAL IV PUSH (17:30)
--- NOTE | 2020-09-14 18:37 | CONS_ITS ---
DATE OF CONSULTATION: 09/14/2020 REASON FOR CONSULTATION: Foot ulcer. HISTORY OF PRESENT ILLNESS: A 70-year-old female, who is legally blind and thus cannot view her feet in an usual fashion. She has had 2 years of blister over the plantar aspect of the right foot. Previously seen by other physician or window sash installer. She saw Dr. Salcido 2 weeks prior to admission, where an antibiotic of unknown identity was prescribed. She was seen in the office again on the day of admission and directly admitted. She had been given vancomycin and ceftriaxone various times. While here, the patient was taken to the operating room on September 10. Findings included necrotic tissue at the plantar, lateral, and central aspect of the wound extending to the periosteum, soft tissue necrosis, 50 cc of pus drain. No bone resection was undertaken at the time of operation. She is now postop. She has no pain in the foot, has not required any other surgical intervention. ALLERGIES: NONE KNOWN. PRESENT MEDICATIONS: Extensive list reviewed. HABITS: No tobacco. No alcohol. PAST MEDICAL HISTORY: AV fistula left upper extremity, glaucoma, peripheral neuropathy, retinopathy, TAHBSO, cataract extractions, prior peritoneal dialysis, morbid obesity, hypertension, hyperlipidemia, gout, GERD, prior DVT, diabetes mellitus, lymphedema, thyroid cyst, anxiety, and depression. REVIEW OF SYSTEMS: 14-point review otherwise negative. FAMILY HISTORY: Not pertinent to her present illness. SOCIAL HISTORY: Recently , lives alone. Two sons still living. PHYSICAL EXAMINATION: GENERAL: This is an elderly female, who appears her actual age. No acute distress. VITAL SIGNS: Afebrile consistently, 59, 131/65, respirations 22. SKIN: Warm and dry. No generalized rashes. HEENT: The conjunctivae are normal. Oropharynx, oral mucosa normal. NECK: No masses, thyromegaly, meningismus. LUNGS: Clear to auscultation and percussion. CARDIAC: Bradycardic, regular. No murmurs or gallops. ABDOMEN: Nontender, soft. No organomegaly. No masses. EXTREMITIES: She has an open wound, plantar right midfoot. There is no erythema, warmth, tenderness in the surrounding skin. The ulcer is clean without odor or residual necrosis. LABORATORY DATA: From the operating room fluid culture had few epithelial cells, few white cells, many gram-positive cocci. Culture has since grown a relatively susceptible Proteus mirabilis. Blood cultures from the final no growth. She has chronic leukocytosis. I reviewed all available CBCs in the EMR, currently 17.3, hemoglobin 9.0, platelets 257. This is without substantial change from prior. Chemistries with a mild hyponatremia. BUN 38, creatinine 5.3. Accu-Cheks variable. Albumin 3.1. No pathology submitted from her most recent operation. MRI of the foot showed no osteomyelitis. ASSESSMENT: 1. Diabetic foot ulcer with abscess that has now been drained postop day 5. She is improving. She has no evidence of soft tissue infection by physical exam nor by symptoms. The above Proteus has been isolated. She did have concern over periostitis at the time of operation, but no osteomyelitis visualized at time of operation nor by MRI. She is at risk for the same. 2. Diabetes mellitus with multiple end-organ complications. 3. Chronic leukocytosis without substantial change. Negative blood cultures. 4. Chronic renal failure. RECOMMENDATIONS: 1. Oral levofloxacin appropriate given the above and will continue for 4-week course. 2. Adjust for her renal insufficiency. 3. Clinical followup. Thank you for asking me to see her. Call if further questions. SATYA ZAPATA M.D. DD: 06
[2020-09-14] MEDS: METOCLOPRAMIDE HCL INJ 10 MG/2 ML VIAL IV PUSH (22:03)
[2020-09-14] MEDS: PANTOPRAZOLE SODIUM IV 40 MG VIAL IV PUSH (22:03)
[2020-09-14] MEDS: DEXTROSE 50% 25 GM/50 ML SYRINGE IV PUSH (22:08)
[2020-09-14 22:37] LABS: Glucose Point of Care 98 mg/dl (65-105)
[2020-09-14 22:37] LABS: Glucose Point of Care 60 mg/dl (65-105)
[2020-09-14] MEDS: LOSARTAN POTASSIUM 100 MG TABLET PO (22:49)
[2020-09-15] VITALS (8 sets, daily range): BP systolic 125–138; BP diastolic 55–59; PULSE 58–87; RESP 14–22; TEMP 35.6–36.7; O2SAT 92–96; BMI 48.6
[2020-09-15] MEDS: MORPHINE SULFATE (*CRX) 2 MG/ML INJ IV PUSH ×3 (01:28→13:17)
[2020-09-15 06:04] LABS: Basophils Absolute Auto 0.1 K/mm3 (0.0-0.1); Basophils Percent Auto 0.4 % (0.2-1.2); Eosinophils Absolute Auto 0.3 K/mm3 (0-0.3); Eosinophils Percent Auto 1.8 % (0-4.4); Hematocrit 30.8 % (37.0-47.0); Hemoglobin 9.6 g/dL (12.0-15.0); Immature Granulocyte Absolute 0.47 K/mm3 (0.00-0.031); Immature Granulocyte Percent A 2.9 % (0-0.5); Lymphocytes Percent Auto 3.7 % (18.3-44.2); Mean Corpuscular HGB Conc 31.2 g/dl (32-36); Mean Corpuscular Hemoglobin 31.5 pg (26-34); Mean Platelet Volume 10.8 fl (7.4-10.4); Monocytes Absolute Auto 0.9 K/mm3 (0.1-0.6); Monocytes Percent Auto 5.4 % (2.6-8.5); Neutrophils Absolute Auto 13.7 K/mm3 (1.3-6.7); Neutrophils Percent Auto 85.8 % (45.5-73.1); Platelet Count Result 265 k/mm3 (150-375); Red Blood Count 3.05 M/mm3 (4.2-5.4); Red Cell Distribution Width 16.5 % (11.5-14.5)
[2020-09-15 06:20] LABS: Alanine Aminotransferase 18 U/L (4-35); Alkaline Phosphatase 237 U/L (38-126); Anion Gap 5 mmol/L (8-16); Aspartate Amino Transferase 28 U/L (14-36); Bilirubin,Total 0.7 mg/dL (0.2-1.3); Blood Urea Nitrogen 22 mg/dL (7-17); Calcium 9.4 mg/dL (8.4-10.2); Carbon Dioxide 30 mmol/L (22-30); Chloride 100 mmol/L (98-107); Estimated CRCL calculation 17 ml/min; Estimated Glomerular Filt Rate 13; Glucose 70 mg/dL (65-105); Sodium 135 mmol/L (137-145)
[2020-09-15] MEDS: METOCLOPRAMIDE HCL INJ 10 MG/2 ML VIAL IV PUSH ×3 (06:44→21:50)
--- NOTE | 2020-09-15 08:53 | PCSTNOTE ---
Therapist attempted to complete Bedside Swallow Evaluation this morning however physician reports patient is NPO for surgery today and requested no BSE until after the procedure. Therapist will check in later today.
[2020-09-15 09:05] LABS: Glucose Point of Care 72 mg/dl (65-105)
--- NOTE | 2020-09-15 09:15 | PM.IMPN ---
Progress Note: A&P Assessment and Plan (1) Diabetic foot ulcer: Code(s): E11.621 - Type 2 diabetes mellitus with foot ulcer; L97.509 - Non-pressure chronic ulcer of other part of unspecified foot with unspecified severity Status: Acute Assessment and Plan: as per diabetic stewardship patient was started on Primaxin and vancomycin. Blood and wound cultures have been taken. Dr. Root was notified and agreed to see the patient. An MRI is ordered for that right foot. 09/13/20 15:21 Patient is 70-year-old female with history of end-stage renal disease on hemodialysis, history of diabetes, had developed right foot ulcer and was seen by her psychiatric lpn started on oral antibiotic but the wound was not healing it was more pain and erythematous, MRI of the foot did not show any osteomyelitis, patient is started on imipenem and vancomycin, patient be seen by her psychiatric lpn further recommendation to follow. 09/09 today patient was seen by her psychiatric lpn and had a bedside wound debridement and cleaning patient tolerated, psychiatric lpn will take the patient to OR tomorrow for proper I and D of the foot and further recommendation to follow, the wound culture is growing Proteus mirabilis sensitivities is pending will continue imipenem and vancomycin, will continue to monitor will have a PT OT evaluate the patient and further recommendation to follow. 09/10 today patient is scheduled to be taken to OR by her psychiatric lpn for deep cleaning of the wound, patient complains right foot, denies any fever or chills, patient will have scheduled dialysis, patient wound culture is growing Proteus mirabilis and Enterococcus species, Proteus mirabilis is resistant to imipenem and sensitive to Rocephin, will stop imipenem and start the patient on Rocephin, will continue to monitor will follow-up and further recommendation to follow. 09/11 patient was taken to OR on 09/10 and had surgical I&D and irrigation of the wound, today patient feeling better however has difficulty with ambulation patient will work with physical therapy, denies any fever or chills, patient will have scheduled dialysis, patient wound culture is growing Proteus mirabilis and Enterococcus species, Proteus mirabilis is resistant to imipenem and sensitive to Rocephin, will stop imipenem and start the patient on Rocephin, will continue to monitor will follow-up and further recommendation to follow. 09/12 today patient work with physical therapist and now out of the bed and sitting in the chair, still complains of pain in her right foot, patient will be seen by psychiatric lpn tomorrow and evaluate to wound and further recommendation to follow, will CPM. 09/13 today wound team is present in the room and wound is open and antibiotic beads are visible in the wound, there is no erythema nor any drainage, wound team will place wound vac, psychiatric lpn requesting opinion of id to further stratify antibiotics management and further recommendation to follow, will be seen by Nephrology and will have scheduled dialysis, clinically stable will continue present management. 09/14 evaluated by surgery insisted further excisional debridement of her right foot ulcer and possible underlying abscess this is scheduled to be done tomorrow. Infectious Disease has been consulted and will continue antibiotic recommendation for infectious disease 09-15 plan for further excisional debridement of right foot ulcer today Eliquis is currently on hold. Infectious Disease has discontinued IV antibiotics and has placed on Levaquin oral for a month. Will keep her NPO because of cough with swallowing. Started on Reglan for history suggestive of gastroparesis. She states her symptoms are improved since the start of Reglan. Continue other current management (2) Splenic infarction: Code(s): D73.5 - Infarction of spleen Status: Acute Assessment and Plan: Patient is on Eliquis will continue without. (3) Infarction of liver:
[2020-09-15] MEDS: TOLNAFTATE 1% POWDER 45 GM BTL 1 APPLIC TOPICAL ×2 (09:16→21:51)
[2020-09-15] MEDS: PANTOPRAZOLE SODIUM IV 40 MG VIAL IV PUSH ×2 (09:16→21:50)
[2020-09-15] MEDS: amLODIPine BESYLATE 5 MG TABLET 10 MG PO (09:16)
[2020-09-15] MEDS: carvediloL 25 MG TABLET PO ×2 (09:16→21:50)
[2020-09-15] MEDS: DEXTROSE 50% 25 GM/50 ML SYRINGE IV PUSH (09:27)
--- NOTE | 2020-09-15 11:37 | PM.PNNEP ---
Progress Note: A&P Assessment and Plan (1) End-stage renal disease (ESRD): Code(s): N18.6 - End stage renal disease Status: Chronic Assessment and Plan: HD tomorrow and continue //Sunday dialysis schedule follow electrolytes, volume status, and clearance (2) Diabetic foot ulcer: Code(s): E11.621 - Type 2 diabetes mellitus with foot ulcer; L97.509 - Non-pressure chronic ulcer of other part of unspecified foot with unspecified severity Status: Acute Assessment and Plan: s/p bedside debridement s/p formal I&D in OR on 09/10/20 follow culture data (as noted) on antibiotics Infectious Disease recommendations reviewed Podiatry following further surgical intervention by General Surgery possibly today (3) Hypertension: Qualifiers: Hypertension type: essential hypertension Qualified Code(s): I10 - Essential (primary) hypertension Code(s): I10 - Essential (primary) hypertension Status: Chronic Assessment and Plan: reasonable control follow trend of hemodynamics (4) Anemia: Code(s): D64.9 - Anemia, unspecified Status: Chronic Assessment and Plan: due to ESRD, acute infection, and operative procedure [facility] HD follow trend of H/H (5) Diabetes: Code(s): E11.9 - Type 2 diabetes mellitus without complications Status: Acute Assessment and Plan: follow accuchecks on Lantus and SSI Will continue to follow. Subjective Date/time seen: 09/15/20 11:37 Tolerated dialysis treatment yesterday without any issue or problems; no apparent distress voiced at the time of my visit; tells me going to go to OR tomorrow for further surgery on her right foot. Exam Narrative: Exam Narrative: General: WD/WN female in NAD Heart: normal S1 and S2; no rub Lungs: clear to auscultation Abdomen: soft, nontender, nondistended, positive bowel sounds Extremities: no cyanosis or clubbing; trace edema Skin: dressings in place Objective Data Vital Signs Vital Signs: Vital Signs Temp Pulse Resp BP Pulse Ox 09/15/20 11:00 92 09/15/20 09:16 87 09/15/20 08:00 35.7 C L 60 16 138/56 L 95 09/15/20 06:00 36.0 C L 60 22 H 125/55 L 94 09/14/20 22:49 62 09/14/20 22:00 62 20 96 09/14/20 20:15 35.9 C L 62 20 128/52 L 96 09/14/20 16:00 36.0 C L 59 L 16 133/53 L 97 09/14/20 13:10 36.8 C 59 L 20 131/64 09/14/20 12:56 54 L 129/61 09/14/20 12:45 59 L 131/65 09/14/20 12:30 56 L 118/56 L 09/14/20 12:15 60 112/56 L 09/14/20 12:00 35.9 C L 59 L 18 123/67 92 Intake/Output Intake/Output: Intake & Output 09/12/20 09/13/20 09/14/20 09/15/20 23:59 23:59 23:59 23:59 Intake Total 1440 1730 590 200 Output Total 2425 Balance 1440 1730 -1835 200 Meds/Results Medications: Active Medications Generic Name Dose Route Start Last Admin Trade Name Fre PRN Reason Stop Dose Admin Allopurinol 100 mg 09/08/20 08:00 09/15/20 09:11 Allopurinol 100 Mg Tablet PO Not Given DAILY@0800 MICHELL Amlodipine Besylate 10 mg 09/08/20 09:00 09/15/20 09:16 Amlodipine Besylate 5 Mg Tablet PO 10 mg DAILY MICHELL Administration Apixaban 2.5 mg 09/08/20 09:00 09/14/20 08:35 Apixaban 2.5 Mg Tablet PO 2.5 mg BID MICHELL Administration Atorvastatin Calcium 20 mg 09/08/20 09:00 09/15/20 09:12 Atorvastatin 20 Mg Tablet PO Not Given DAILY MICHELL Benzonatate 100 mg 09/12/20 09:29 09/14/20 08:36 Benzonatate 100 Mg Capsule PO 100 mg TID PRN Administration Cough Bupropion HCl 150 mg 09/08/20 09:00 09/15/20 09:13 Bupropion Hcl Sr (12 Hr) 150 Mg Tab PO Not Given DAILY MICHELL Buspirone HCl 15 mg 09/08/20 09:00 09/15/20 09:13 Buspirone Hcl 5 Mg Tablet PO Not Given BID [facility] Calcium Acetate 667 mg 09/08/20 09:00 09/15/20 09:11 Calcium Acetate 667 Mg Tablet PO Not Given TID MICHELL Cannon
[2020-09-15 12:16] LABS: Glucose Point of Care 83 mg/dl (65-105)
--- NOTE | 2020-09-15 13:58 | PCSTNOTE ---
Please refer to the Bedside Swallow Evaluation in the EMR. Please note, silent aspiration cannot be ruled out at bedside.
--- NOTE | 2020-09-15 14:05 | PM.PNGS ---
Progress Note: A&P Assessment and Plan (1) Diabetic foot ulcer: Code(s): E11.621 - Type 2 diabetes mellitus with foot ulcer; L97.509 - Non-pressure chronic ulcer of other part of unspecified foot with unspecified severity Status: Acute Assessment and Plan: She has an infected right diabetic foot ulcer that is status post bedside debridement on 09/09/20 and surgical debridement with versajet use in the OR on 09/10/20. During surgery vancomycin antibiotic beads were placed in the wound. Wound culture from surgery showed growth of proteus mirabilis. ID consulted and switched her to oral levofloxacin. Her right foot wound ultimately would benefit from further excisional debridement. We will plan to add her onto the surgery schedule tomorrow with Dr. Nunez, which will also allow more time for her Eliquis to wear off. Continue local wound care for today with wet to dry dressing changes. Make NPO after midnight. (2) Peripheral arterial disease: Code(s): I73.9 - Peripheral vascular disease, unspecified Status: Acute Assessment and Plan: ABIs this admission were unable to be obtained due to inability to occlude the right brachial artery and could not assess the left due to her upper arm fistula. There was brisk systolic upstrokes at the bilateral posterior tibial and dorsalis pedis arteries, suggesting there is no high-grade stenosis, but there could still be mild to moderate stenosis. Could contribute to poor wound healing and cause further issues despite surgical debridement if she does have some arterial stenosis. (3) Cellulitis: Code(s): L03.90 - Cellulitis, unspecified Status: Acute Assessment and Plan: Localized erythema of the right foot. ID switched her to oral levofloxacin 250 mg Q48H from IV abx. 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 Discussed the importance of glycemic control with the patient in regards to wound healing, infection, and preventing future issues. (5) End-stage renal disease (ESRD): Code(s): N18.6 - End stage renal disease Status: Chronic Assessment and Plan: Receives hemodialysis on Sunday, , and Sunday. Nephrology following. (6) Infarction of liver: Code(s): K76.3 - Infarction of liver Status: Acute Assessment and Plan: Hold Eliquis for surgery. (7) Splenic infarction: Code(s): D73.5 - Infarction of spleen Status: Acute Additional Plan I have discussed the patient's case and plan of care with Dr. Nunez. Subjective Subjective Date/Time Seen: 09/15/20 14:05 Patient reports: no new complaints, pain is less and other (coughing and concern for difficulty swallowing, plan for swallow test today) Interval history: Patient seen today, as well as by Dr. Nunez prior to my arrival. She reports her right foot pain has improved today and is less tender. She has had some coughing with swallowing and concerns with swallowing. Speech is on the floor to evaluate her swallow after I spoke with her. She has no other complaints at this time. Review of Systems Review of Systems: All systems reviewed & are unremarkable except as noted in HPI and below Exam Const: General: no acute distress and alert Nutritional Appearance: obese Orientation/consciousness: patient oriented x3 Skin: Other: Right diabetic foot ulcer on the plantar aspect of the foot with no significant change today, still with majority of the wound having necrotic tissues or slough and purulent drainage from the posterior tracking of the wound. S
[2020-09-15 17:12] LABS: Glucose Point of Care 95 mg/dl (65-105)
[2020-09-15] MEDS: LOSARTAN POTASSIUM 100 MG TABLET PO (21:50)
[2020-09-15] MEDS: DOCUSATE SODIUM 100 MG CAPSULE PO (21:51)
[2020-09-15] MEDS: guaiFENesin 12 HR 600 MG TABCR PO (21:51)
[2020-09-15 21:55] LABS: Glucose Point of Care 125 mg/dl (65-105)
[2020-09-16] VITALS (26 sets, daily range): BP systolic 102–139; BP diastolic 39–92; PULSE 56–76; RESP 11–22; TEMP 35.7–36.8; O2SAT 92–99
[2020-09-16] MEDS: METOCLOPRAMIDE HCL INJ 10 MG/2 ML VIAL IV PUSH ×3 (05:51→21:07)
[2020-09-16 05:54] LABS: Glucose Point of Care 132 mg/dl (65-105)
[2020-09-16 06:26] LABS: Potassium 4.3 mmol/L (3.4-5.0)
[2020-09-16 06:28] LABS: Basophils Absolute Auto 0.1 K/mm3 (0.0-0.1); Basophils Percent Auto 0.5 % (0.2-1.2); Eosinophils Absolute Auto 0.2 K/mm3 (0-0.3); Eosinophils Percent Auto 1.5 % (0-4.4); Hematocrit 31.4 % (37.0-47.0); Hemoglobin 9.7 g/dL (12.0-15.0); Immature Granulocyte Absolute 0.21 K/mm3 (0.00-0.031); Immature Granulocyte Percent A 1.5 % (0-0.5); Lymphocytes Absolute Auto 0.62 K/mm3 (0.9-3.2); Lymphocytes Percent Auto 4.5 % (18.3-44.2); Mean Corpuscular HGB Conc 30.9 g/dl (32-36); Mean Corpuscular Hemoglobin 31.2 pg (26-34); Mean Platelet Volume 10.7 fl (7.4-10.4); Monocytes Absolute Auto 0.7 K/mm3 (0.1-0.6); Monocytes Percent Auto 5.4 % (2.6-8.5); Neutrophils Percent Auto 86.6 % (45.5-73.1); Platelet Count Result 284 k/mm3 (150-375); Red Blood Count 3.11 M/mm3 (4.2-5.4); Red Cell Distribution Width 16.7 % (11.5-14.5); White Blood Count 13.8 K/mm3 (4.5-10.0)
[2020-09-16 06:30] LABS: Anion Gap 8 mmol/L (8-16); Blood Urea Nitrogen 26 mg/dL (7-17); Calcium 9.4 mg/dL (8.4-10.2); Carbon Dioxide 28 mmol/L (22-30); Chloride 100 mmol/L (98-107); Estimated CRCL calculation 13 ml/min; Estimated Glomerular Filt Rate 9; Glucose 128 mg/dL (65-105); Sodium 136 mmol/L (137-145)
--- NOTE | 2020-09-16 06:35 | WPDANESEFPP ---
Anes - Eval Final PreProcedure Day of Procedure 09/16/20 06:35 Patient weight: morbidly obese Heart: regular rate and rhythm Lungs: clear to auscultation Airway: Mallampati scale class II Neurological: alert and oriented Last oral intake: >/= 8 hours ASA classification: IV Emergent: no Anesthetic plan: proceed Anesthesia type and monitoring: general LMA and standard monitoring Informed Consent: The patient's anesthetic plan and its attendant risks and benefits were discussed with the patient/family/POA. Questions were solicited and answers provided to the satisfaction of the patient/family/POA.
[2020-09-16] MEDS: SODIUM CHLORIDE 0.9% IV 500 ML 30 ML IV CONT (06:54)
--- NOTE | 2020-09-16 07:16 | WPDHPUPDATE1 ---
History and Physical Update Update Date/Time: 09/16/20 07:16 History and Physical has been reviewed, including an updated exam of the patient. There are changes in the patient's condition.Since admission the patient is both had both a bedside debridement and subsequently an operative debridement of her right foot. This is still on inspection revealing some necrotic tissue in signs of infection therefore further debridement is felt to be indicated. Will also used pulse of back to wash out the wound while. The risks, benefits, possible complications of this been discussed with the patient and her son. Risks, benefits, and alternatives Of right foot breathing in and dressing change have been discussed and questions answered. Patient agrees to proceed with procedure.
[2020-09-16] MEDS: CLINDAMYCIN 900 MG/D5W 50 ML 900 MG/50 ML PIGGYBACK 50 MG IVPB (07:31)
[2020-09-16 09:00] LABS: Glucose Point of Care 111 mg/dl (65-105)
--- NOTE | 2020-09-16 10:07 | SUR.PHASEI ---
PATIENT BED/GOWN CHANGED D/T INCONTINENT OF URINE.
--- NOTE | 2020-09-16 10:16 | PC.NURSE ---
Patient back to room from or, vital signs stable and dressing to right foot dry and intact. Call light given.
--- NOTE | 2020-09-16 11:27 | PM.PNNEP ---
Progress Note: A&P Assessment and Plan (1) End-stage renal disease (ESRD): Code(s): N18.6 - End stage renal disease Status: Chronic Assessment and Plan: HD today and continue //Sunday dialysis schedule follow electrolytes, volume status, and clearance (2) Diabetic foot ulcer: Code(s): E11.621 - Type 2 diabetes mellitus with foot ulcer; L97.509 - Non-pressure chronic ulcer of other part of unspecified foot with unspecified severity Status: Acute Assessment and Plan: s/p bedside debridement s/p formal I&D in OR on 09/10/20 follow culture data (as noted) on antibiotics Infectious Disease recommendations reviewed Podiatry following further surgical intervention by General Surgery earlier today (3) Hypertension: Qualifiers: Hypertension type: essential hypertension Qualified Code(s): I10 - Essential (primary) hypertension Code(s): I10 - Essential (primary) hypertension Status: Chronic Assessment and Plan: reasonable control follow trend of hemodynamics (4) Anemia: Code(s): D64.9 - Anemia, unspecified Status: Chronic Assessment and Plan: due to ESRD, acute infection, and operative procedure [facility] follow trend of H/H (5) Diabetes: Code(s): E11.9 - Type 2 diabetes mellitus without complications Status: Acute Assessment and Plan: follow accuchecks on Lantus and SSI Will continue to follow. Subjective Date/time seen: 09/16/20 11:27 Tolerating dialysis at the time of my visit (seen on HD at 11:15PM); sleeping comfortably and tolerated operative procedure earlier ths AM; no apparent distress voiced at this time. Exam Narrative: Exam Narrative: General: WD/WN female in NAD Heart: normal S1 and S2; no rub Lungs: clear to auscultation Abdomen: soft, nontender, nondistended, positive bowel sounds Extremities: no cyanosis or clubbing; trace edema Skin: dressings noted Objective Data Vital Signs Vital Signs: Vital Signs Temp Pulse Resp BP Pulse Ox 09/16/20 11:08 57 L 128/63 09/16/20 10:55 36.3 C L 59 L 16 134/42 L 09/16/20 09:45 56 L 22 H 105/92 H 93 09/16/20 09:30 76 16 126/56 L 93 09/16/20 09:19 59 L 15 121/61 93 09/16/20 09:04 61 12 119/55 L 92 09/16/20 08:49 36.5 C 65 11 L 106/49 L 95 09/16/20 06:36 36.8 C 64 20 117/47 L 94 09/16/20 06:00 36.4 C L 64 20 118/69 93 09/15/20 22:00 96 09/15/20 21:50 62 09/15/20 21:09 36.7 C 62 18 130/59 L 96 09/15/20 12:00 35.6 C L 58 L 14 132/56 L 95 Intake/Output Intake/Output: Intake & Output 09/13/20 09/14/20 09/15/20 09/16/20 23:59 23:59 23:59 23:59 Intake Total 1730 590 440 50 Output Total 2425 Balance 1730 -1835 440 50 Meds/Results Medications: Active Medications Generic Name Dose Route Start Last Admin Trade Name Jitendra PRN Reason Stop Dose Admin Hydrocodone Bitart/Acetaminophen 2 tab 09/16/20 09:04 Hydrocodone/Acetaminophen (*Crx) 5-325 Mg Tablet PO Q6H PRN Pain Rated 7-10 Allopurinol 100 mg 09/08/20 08:00 09/15/20 09:11 Allopurinol 100 Mg Tablet PO Not Given DAILY@0800 [facility] Amlodipine Besylate 10 mg 09/08/20 09:00 09/15/20 09:16 Amlodipine Besylate 5 Mg Tablet PO 10 mg DAILY MICHELL Administration Apixaban 2.5 mg 09/08/20 09:00 09/14/20 08:35 Apixaban 2.5 Mg Tablet PO 2.5 mg BID MICHELL Administration Atorvastatin Calcium 20 mg 09/08/20 09:00 09/15/20 09:12 Atorvastatin 20 Mg Tablet PO Not Given DAILY MICHELL Benzonatate 100 mg 09/12/20 09:29 09/14/20 08:36 Benzonatate 100 Mg Capsule PO 100 mg TID PRN Administration Cough Bupropion HCl 150 mg 09/08/20 09:00 09/15/20 09:13 Bupropion Hcl Sr (12 Hr) 150 Mg Tab PO Not Given DAILY MICHELL Buspirone HCl 15 mg 09/08/20 09:00 09/15/20 17:08 Buspirone Hcl 5 Mg Tablet PO Not Given BID [facility]
--- NOTE | 2020-09-16 12:13 | W.PM.PROC2 ---
Procedure Note - Detailed Date of Procedure 09/16/20 Pre-op Diagnosis Diabetic ulcer and infected right foot wound Post-op Diagnosis same Procedure Performed Debridement and irrigation of infected wound right foot ( diabetic) ( excision all including fascia ). Surgeon Arnold Nunez MD Cilnical Scientist [employer] [place] hotel assistant general manager Anesthesia general Indications worsening necrosis and infection in a previously open diabetic right foot wound Findings multiple areas of fat necrosis and infection along the edges of previously open diabetic right foot wound Description of Procedure The patient was brought to the operating room and placed supine on the operating table. Her entire right foot and lower leg up to mid calf was prepped and draped in usual sterile fashion with Betadine soap and paint. The entire foot and lower leg up to about 10 cm above the ankle were draped off appropriately. Following this time-out was performed confirming patient and site of planned surgery. Patient received 900 mg of clindamycin as a preoperative antibiotic within one hour of incision. Following this the previously made incision was extended posteriorly toward the heel opening further the soft tissues where there was necrotic material. Chronically appearing material was then debrided from within the wound in this area. Also another area was also opened more medially where there was necrotic tissue occurring underneath the edges of the wound and I then carefully debrided out more non-viable necrotic material/tissue with forceps and a 15 blade knife. Following this several areas of thickened callused skin were excised from the more healthy viable skin surrounding the plantar surface wound. Then at the base of the wound I debrided down to bleeding tissue thoroughly throughout the entire wound. This did leave some of the plantar fascia visible and open within the wound but it appeared viable. Following this a 3 L bag of pulse- a- VAC fluid was used to irrigate out the wound thoroughly using normal saline. The wound was again then inspected and all areas of bleeding were cauterized with Bovie cautery to establish good hemostasis. Then at approximately 6 areas I placed full-thickness #0 Prolene sutures that eventually could be used to pull the wound edges together if it starts to granulate well in order to try to allow for quicker healing. These were left long and tied with knots. Following this the wound was lined with silver rope making sure that silver rope was against all the inner surfaces of the wound. Following this several super sponges were applied to the wound and then a Kerlix roll. Also on the patient has lower anterior leg a carefully scraped a lot of the very thick callus skin off Ml flaked off fairly easily. There were only very few small areas of some light abrasion that seem like they were down to normal skin. Will have the wound care nurses evaluate this and recommend appropriate lotion treatment for the very dry skin on both lower extremities. Patient tolerated procedure where well. Implants None Estimated Blood Loss 50 Urine Output 0 Drains No Packing Yes ( 47 cm of silver rope was laid across the entire surface of the wound.) Pathology yes ( Portions of necrotic material from soft tissue of the right foot) Complications No immediate complications Condition stable Disposition PACU
[2020-09-16] MEDS: EPOETIN ALFA-EPBX 10,000 UNITS/ML VIAL 10000 UNITS IV PUSH (12:59)
[2020-09-16] MEDS: CALCIUM ACETATE 667 MG TABLET PO (13:15)
[2020-09-16] MEDS: PANTOPRAZOLE SODIUM IV 40 MG VIAL IV PUSH ×2 (13:57→20:57)
[2020-09-16] MEDS: levoFLOXacin 250 MG TABLET PO (14:03)
[2020-09-16 14:10] LABS: Glucose Point of Care 110 mg/dl (65-105)
[2020-09-16] MEDS: TOLNAFTATE 1% POWDER 45 GM BTL 1 APPLIC TOPICAL ×2 (15:45→20:58)
[2020-09-16] MEDS: LACTIC ACID 12% LOTION 225 BTL 1 APPLIC TOPICAL (15:45)
--- NOTE | 2020-09-16 16:22 | PM.IMPN ---
Progress Note: A&P Assessment and Plan (1) Diabetic foot ulcer: Code(s): E11.621 - Type 2 diabetes mellitus with foot ulcer; L97.509 - Non-pressure chronic ulcer of other part of unspecified foot with unspecified severity Status: Acute Assessment and Plan: as per diabetic stewardship patient was started on Primaxin and vancomycin. Blood and wound cultures have been taken. Dr. Root was notified and agreed to see the patient. An MRI is ordered for that right foot. 09/13/20 15:21 Patient is 70-year-old female with history of end-stage renal disease on hemodialysis, history of diabetes, had developed right foot ulcer and was seen by her industrial engineering technician started on oral antibiotic but the wound was not healing it was more pain and erythematous, MRI of the foot did not show any osteomyelitis, patient is started on imipenem and vancomycin, patient be seen by her industrial engineering technician further recommendation to follow. 09/09 today patient was seen by her industrial engineering technician and had a bedside wound debridement and cleaning patient tolerated, industrial engineering technician will take the patient to OR tomorrow for proper I and D of the foot and further recommendation to follow, the wound culture is growing Proteus mirabilis sensitivities is pending will continue imipenem and vancomycin, will continue to monitor will have a PT OT evaluate the patient and further recommendation to follow. 09/10 today patient is scheduled to be taken to OR by her industrial engineering technician for deep cleaning of the wound, patient complains right foot, denies any fever or chills, patient will have scheduled dialysis, patient wound culture is growing Proteus mirabilis and Enterococcus species, Proteus mirabilis is resistant to imipenem and sensitive to Rocephin, will stop imipenem and start the patient on Rocephin, will continue to monitor will follow-up and further recommendation to follow. 09/11 patient was taken to OR on 09/10 and had surgical I&D and irrigation of the wound, today patient feeling better however has difficulty with ambulation patient will work with physical therapy, denies any fever or chills, patient will have scheduled dialysis, patient wound culture is growing Proteus mirabilis and Enterococcus species, Proteus mirabilis is resistant to imipenem and sensitive to Rocephin, will stop imipenem and start the patient on Rocephin, will continue to monitor will follow-up and further recommendation to follow. 09/12 today patient work with physical therapist and now out of the bed and sitting in the chair, still complains of pain in her right foot, patient will be seen by industrial engineering technician tomorrow and evaluate to wound and further recommendation to follow, will CPM. 09/13 today wound team is present in the room and wound is open and antibiotic beads are visible in the wound, there is no erythema nor any drainage, wound team will place wound vac, industrial engineering technician requesting opinion of id to further stratify antibiotics management and further recommendation to follow, will be seen by Nephrology and will have scheduled dialysis, clinically stable will continue present management. 09/14 evaluated by surgery insisted further excisional debridement of her right foot ulcer and possible underlying abscess this is scheduled to be done tomorrow. Infectious Disease has been consulted and will continue antibiotic recommendation for infectious disease 09-15 plan for further excisional debridement of right foot ulcer today Eliquis is currently on hold. Infectious Disease has discontinued IV antibiotics and has placed on Levaquin oral for a month. Will keep her NPO because of cough with swallowing. Started on Reglan for history suggestive of gastroparesis. She states her symptoms are improved since the start of Reglan. Continue other current management 09/16: underwent further debridemnt today. continue antibiotics pe ID. rajeshis to winsome. contniue wound care and inpatie tHD as pe bennett. (2) Splenic infarction: Code(s): D73.5 - Infar
[2020-09-16 17:17] LABS: Glucose Point of Care 148 mg/dl (65-105)
[2020-09-16] MEDS: HYDROcodone/acetaminophen (*CRX) 5-325 MG TABLET 2 TAB PO (17:17)
[2020-09-16] MEDS: busPIRone HCL 5 MG TABLET 15 MG PO (17:18)
[2020-09-16] MEDS: CALCIUM ACETATE 667 MG TABLET 1334 MG PO (17:40)
[2020-09-16] MEDS: DOCUSATE SODIUM 100 MG CAPSULE PO (20:58)
[2020-09-16] MEDS: guaiFENesin 12 HR 600 MG TABCR PO (20:58)
[2020-09-16] MEDS: traMADol HCL (*CRX) 50 MG TABLET PO (20:58)
[2020-09-16] MEDS: carvediloL 25 MG TABLET PO (21:06)
[2020-09-16] MEDS: LOSARTAN POTASSIUM 100 MG TABLET PO (21:06)
[2020-09-16] MEDS: INSULIN GLARGINE (*BKC) 100 UNITS/ML 48 UNITS SUB-Q (21:09)
[2020-09-16 21:32] LABS: Glucose Point of Care 218 mg/dl (65-105)
[2020-09-17] VITALS (9 sets, daily range): BP systolic 105–125; BP diastolic 45–52; PULSE 57–62; RESP 12–20; TEMP 35.6–36.6; O2SAT 92–97
[2020-09-17] MEDS: HYDROcodone/acetaminophen (*CRX) 5-325 MG TABLET 2 TAB PO ×3 (05:09→22:01)
[2020-09-17] MEDS: METOCLOPRAMIDE HCL INJ 10 MG/2 ML VIAL IV PUSH ×3 (05:11→21:08)
[2020-09-17 05:48] LABS: Hemoglobin 9.5 g/dL (12.0-15.0); Mean Corpuscular HGB Conc 31.7 g/dl (32-36); Mean Corpuscular Hemoglobin 31.9 pg (26-34); Mean Corpuscular Volume 100.7 fl (80-100); Mean Platelet Volume 10.4 fl (7.4-10.4); Platelet Count Result 271 k/mm3 (150-375); Red Blood Count 2.98 M/mm3 (4.2-5.4); Red Cell Distribution Width 16.5 % (11.5-14.5); White Blood Count 11.9 K/mm3 (4.5-10.0)
[2020-09-17 06:09] LABS: Anion Gap 7 mmol/L (8-16); Blood Urea Nitrogen 22 mg/dL (7-17); Calcium 9.2 mg/dL (8.4-10.2); Carbon Dioxide 30 mmol/L (22-30); Chloride 100 mmol/L (98-107); Estimated CRCL calculation 15 ml/min; Estimated Glomerular Filt Rate 11; Glucose 52 mg/dL (65-105); Potassium 3.9 mmol/L (3.4-5.0); Sodium 137 mmol/L (137-145)
[2020-09-17] MEDS: GLUCOSE ORAL GEL 15 GM OF GLUCSE IN 37.5 GM TUBE PO (06:15)
[2020-09-17 06:31] LABS: Glucose Point of Care 72 mg/dl (65-105)
[2020-09-17 08:26] LABS: Glucose Point of Care 100 mg/dl (65-105)
--- NOTE | 2020-09-17 09:18 | WPDANESPN ---
Anes - Prog Note Post-Op Date/Time: 09/17/20 09:18 Vital Signs: Last Vital Signs Temp 97.4 F L 09/17/20 04:29 Pulse 61 09/17/20 04:29 Resp 20 09/17/20 04:29 BP 105/48 L 09/17/20 04:29 Pulse Ox 92 09/17/20 07:45 Pain Score (VAS): 0 I/O: Intake & Output 09/16/20 09/17/20 09/17/20 23:59 07:59 15:59 Intake Total 150 170 Output Total 0 Balance 150 170 Laboratory Tests 09/17/20 05:28 09/17/20 05:28 09/16/20 09/16/20 09/16/20 13:37 17:12 20:54 WBC RBC Hgb Hct MCV MCH MCHC RDW Plt Count MPV Sodium Potassium Chloride Carbon Dioxide Anion Gap BUN Creatinine Estim Creat Clear Calc Estimated GFR Glucose POC Capillary Glucose 110 H 148 H 218 H Calcium 09/17/20 09/17/20 09/17/20 05:28 05:28 06:27 WBC 11.9 H RBC 2.98 L Hgb 9.5 L Hct 30.0 L MCV 100.7 H MCH 31.9 MCHC 31.7 L RDW 16.5 H Plt Count 271 MPV 10.4 Sodium 137 Potassium 3.9 Chloride 100 Carbon Dioxide 30 Anion Gap 7 L BUN 22 H Creatinine 3.90 H Estim Creat Clear Calc 15 Estimated GFR 11 L Glucose 52 L* POC Capillary Glucose 72 Calcium 9.2 09/17/20 08:08 WBC RBC Hgb Hct MCV MCH MCHC RDW Plt Count MPV Sodium Potassium Chloride Carbon Dioxide Anion Gap BUN Creatinine Estim Creat Clear Calc Estimated GFR Glucose POC Capillary Glucose 100 Calcium Microbiology 09/16/20 08:00 Foot Right Anaerobic Culture - Preliminary 09/10/20 12:31 Foot Right Anaerobic Culture - Final 09/10/20 12:31 Foot Right Aerobic Culture - Final Proteus Mirabilis Post-procedural complaints: none Patient Feedback: Patient satisfied with anesthetic care.
[2020-09-17] MEDS: allopurinoL 100 MG TABLET PO (09:55)
[2020-09-17] MEDS: buPROPion HCL SR (12 HR) 150 MG TAB PO (09:55)
[2020-09-17] MEDS: CALCIUM ACETATE 667 MG TABLET 1334 MG PO ×3 (09:55→17:43)
[2020-09-17] MEDS: carvediloL 25 MG TABLET PO ×2 (09:56→20:29)
[2020-09-17] MEDS: DOCUSATE SODIUM 100 MG CAPSULE PO ×2 (09:57→20:29)
[2020-09-17] MEDS: busPIRone HCL 5 MG TABLET 15 MG PO ×2 (09:57→17:43)
[2020-09-17] MEDS: amLODIPine BESYLATE 5 MG TABLET 10 MG PO (09:58)
[2020-09-17] MEDS: ATORVASTATIN 20 MG TABLET PO (09:58)
[2020-09-17] MEDS: guaiFENesin 12 HR 600 MG TABCR PO ×2 (09:58→20:29)
[2020-09-17] MEDS: polyethylene glycoL 3350 17 GM POWD.PACK PO (09:59)
[2020-09-17] MEDS: TOLNAFTATE 1% POWDER 45 GM BTL 1 APPLIC TOPICAL ×2 (09:59→20:36)
[2020-09-17] MEDS: PANTOPRAZOLE SODIUM IV 40 MG VIAL IV PUSH ×2 (09:59→20:36)
[2020-09-17] MEDS: LACTIC ACID 12% LOTION 225 BTL 1 APPLIC TOPICAL (10:00)
--- NOTE | 2020-09-17 10:46 | PCNFU ---
Nutrition Follow-Up Complete: Increased Protein needs as related to wounds as evidenced by right foot diabetic ulcer. Goal: Meet estimated nutritional needs Patient is progressing towards current goal. No new goal at this time. Pt current nutrition is level 5, minced and moist. Last recorded weight is 120.4 kg. Bowel Motility: + BM 09/06. Labs Reviewed: Hgb 9.5, Hct 30.0, GFR 11, BUN 22, Cr 3.9, Glu 52 Meds Noted: Reglan, Miralax, Lantus, Albutein, Zyloprim, Norvasc, Eliquis, Lipitor, Benzonatate, Buspar, Phoslo, Coreg, Colace Capsule, Novolog, Narcan, Ultram Additional Notes: Spoke with patient. Patient reported that her appetite is increasing each any every day. She has consumed 25%, 50%, and 100% of trays ordered. She stated Reglan is helping significantly. Patient has not had a documented bowel movement since 09/06 but is on Miralax. Patient receives hemodialysis Tuesdays, , and Saturdays. Diabetic foot ulcer is present. Will monitor every 3 days.
--- NOTE | 2020-09-17 12:32 | PM.PNNEP ---
Progress Note: A&P Assessment and Plan (1) End-stage renal disease (ESRD): Code(s): N18.6 - End stage renal disease Status: Chronic Assessment and Plan: HD tomorrow and continue //Sunday dialysis schedule follow electrolytes, volume status, and clearance (2) Diabetic foot ulcer: Code(s): E11.621 - Type 2 diabetes mellitus with foot ulcer; L97.509 - Non-pressure chronic ulcer of other part of unspecified foot with unspecified severity Status: Acute Assessment and Plan: s/p bedside debridement s/p formal I&D in OR on 09/10/20 follow culture data (as noted) on antibiotics Infectious Disease recommendations reviewed Podiatry following s/p surgical intervention by General Surgery (09/16/20) (3) Hypertension: Qualifiers: Hypertension type: essential hypertension Qualified Code(s): I10 - Essential (primary) hypertension Code(s): I10 - Essential (primary) hypertension Status: Chronic Assessment and Plan: reasonable control follow trend of hemodynamics (4) Anemia: Code(s): D64.9 - Anemia, unspecified Status: Chronic Assessment and Plan: due to ESRD, acute infection, and operative procedure [facility] follow trend of H/H (5) Diabetes: Code(s): E11.9 - Type 2 diabetes mellitus without complications Status: Acute Assessment and Plan: follow accuchecks on Lantus and SSI Will continue to follow. Subjective Date/time seen: 09/17/20 12:32 Tolerated dialysis yesterday without any acute issues or problems; pain control fluctuates but tolerable with current medications; no acute distress voiced at the time of my visit; no issues/events overnight or earlier ths AM. Exam Narrative: Exam Narrative: General: WD/WN female in NAD Heart: normal S1 and S2; no rub Lungs: clear to auscultation Abdomen: soft, nontender, nondistended, positive bowel sounds Extremities: no cyanosis or clubbing; trace edema Skin: dressings in place Objective Data Vital Signs Vital Signs: Vital Signs Temp Pulse Resp BP Pulse Ox 09/17/20 09:56 60 09/17/20 09:20 93 09/17/20 07:45 92 09/17/20 04:29 36.3 C L 61 20 105/48 L 92 09/17/20 01:00 36.6 C 62 16 125/52 L 97 09/16/20 21:13 95 09/16/20 21:06 64 09/16/20 20:55 120/51 L 09/16/20 20:45 97 09/16/20 20:00 36.6 C 62 20 102/44 L 97 09/16/20 19:41 98 09/16/20 16:00 35.8 C L 65 14 120/54 L 98 09/16/20 14:49 36.1 C L 64 16 117/50 L 99 Intake/Output Intake/Output: Intake & Output 09/14/20 09/15/20 09/16/20 09/17/20 23:59 23:59 23:59 23:59 Intake Total 590 440 440 290 Output Total 2425 700 Balance -1835 440 -260 290 Meds/Results Medications: Active Medications Generic Name Dose Route Start Last Admin Trade Name Freq PRN Reason Stop Dose Admin Hydrocodone Bitart/Acetaminophen 2 tab 09/16/20 09:04 09/17/20 13:23 Hydrocodone/Acetaminophen (*Crx) 5-325 Mg Tablet PO 2 tab Q6H PRN Administration Pain Rated 7-10 Allopurinol 100 mg 09/08/20 08:00 09/17/20 09:55 Allopurinol 100 Mg Tablet PO 100 mg DAILY@0800 MICHELL Administration Amlodipine Besylate 10 mg 09/08/20 09:00 09/17/20 09:58 Amlodipine Besylate 5 Mg Tablet PO 10 mg DAILY MICHELL Administration Apixaban 2.5 mg 09/08/20 09:00 09/14/20 08:35 Apixaban 2.5 Mg Tablet PO 2.5 mg BID MICHELL Administration Atorvastatin Calcium 20 mg 09/08/20 09:00 09/17/20 09:58 Atorvastatin 20 Mg Tablet PO 20 mg DAILY MICHELL Administration Benzonatate 100 mg 09/12/20 09:29 09/14/20 08:36 Benzonatate 100 Mg Capsule PO 100 mg TID PRN Administration Cough Bupropion HCl 150 mg 09/08/20 09:00 09/17/20 09:55 Bupropion Hcl Sr (12 Hr) 150 Mg Tab PO 150 mg DAILY MICHELL Administration Buspirone HCl 15 mg 09/08/20 09:00 09/17/20 09:57 Buspirone Hcl 5 Mg Tablet PO
[2020-09-17 12:46] LABS: Glucose Point of Care 56 mg/dl (65-105)
[2020-09-17] MEDS: DEXTROSE 50% 25 GM/50 ML SYRINGE IV PUSH (13:25)
[2020-09-17 13:40] LABS: Glucose Point of Care 63 mg/dl (65-105)
[2020-09-17 14:00] LABS: Glucose Point of Care 106 mg/dl (65-105)
--- NOTE | 2020-09-17 15:19 | PCPTNOTE ---
Attempted PT reeval x 3 awaiting dressing change w/ Wound Care. Yessica RN, Wound Care, stated to hold PT due to wound vac and foot not allowed to be down. Will try again tomorrow.
--- NOTE | 2020-09-17 16:58 | PM.IMPN ---
Progress Note: A&P Assessment and Plan (1) Diabetic foot ulcer: Code(s): E11.621 - Type 2 diabetes mellitus with foot ulcer; L97.509 - Non-pressure chronic ulcer of other part of unspecified foot with unspecified severity Status: Acute Assessment and Plan: as per diabetic stewardship patient was started on Primaxin and vancomycin. Blood and wound cultures have been taken. Dr. Root was notified and agreed to see the patient. An MRI is ordered for that right foot. 09/13/20 15:21 Patient is 70-year-old female with history of end-stage renal disease on hemodialysis, history of diabetes, had developed right foot ulcer and was seen by her communications executive started on oral antibiotic but the wound was not healing it was more pain and erythematous, MRI of the foot did not show any osteomyelitis, patient is started on imipenem and vancomycin, patient be seen by her communications executive further recommendation to follow. 09/09 today patient was seen by her communications executive and had a bedside wound debridement and cleaning patient tolerated, communications executive will take the patient to OR tomorrow for proper I and D of the foot and further recommendation to follow, the wound culture is growing Proteus mirabilis sensitivities is pending will continue imipenem and vancomycin, will continue to monitor will have a PT OT evaluate the patient and further recommendation to follow. 09/10 today patient is scheduled to be taken to OR by her communications executive for deep cleaning of the wound, patient complains right foot, denies any fever or chills, patient will have scheduled dialysis, patient wound culture is growing Proteus mirabilis and Enterococcus species, Proteus mirabilis is resistant to imipenem and sensitive to Rocephin, will stop imipenem and start the patient on Rocephin, will continue to monitor will follow-up and further recommendation to follow. 09/11 patient was taken to OR on 09/10 and had surgical I&D and irrigation of the wound, today patient feeling better however has difficulty with ambulation patient will work with physical therapy, denies any fever or chills, patient will have scheduled dialysis, patient wound culture is growing Proteus mirabilis and Enterococcus species, Proteus mirabilis is resistant to imipenem and sensitive to Rocephin, will stop imipenem and start the patient on Rocephin, will continue to monitor will follow-up and further recommendation to follow. 09/12 today patient work with physical therapist and now out of the bed and sitting in the chair, still complains of pain in her right foot, patient will be seen by communications executive tomorrow and evaluate to wound and further recommendation to follow, will CPM. 09/13 today wound team is present in the room and wound is open and antibiotic beads are visible in the wound, there is no erythema nor any drainage, wound team will place wound vac, communications executive requesting opinion of id to further stratify antibiotics management and further recommendation to follow, will be seen by Nephrology and will have scheduled dialysis, clinically stable will continue present management. 09/14 evaluated by surgery insisted further excisional debridement of her right foot ulcer and possible underlying abscess this is scheduled to be done tomorrow. Infectious Disease has been consulted and will continue antibiotic recommendation for infectious disease 09-15 plan for further excisional debridement of right foot ulcer today Andriaqumarissa is currently on hold. Infectious Disease has discontinued IV antibiotics and has placed on Levaquin oral for a month. Will keep her NPO because of cough with swallowing. Started on Reglan for history suggestive of gastroparesis. She states her symptoms are improved since the start of Reglan. Continue other current management 09/16: underwent further debridemnt today. continue antibiotics pe ID. rajeshis to winsome. contniue wound care and inpatie tHD as pe scheduld. 09/17: Doing well postsurgery vital stable. Continue
[2020-09-17 17:07] LABS: Glucose Point of Care 79 mg/dl (65-105)
[2020-09-17] MEDS: MAGNESIUM HYDROXIDE SUSP 30 ML UDC PO (17:41)
[2020-09-17] MEDS: LOSARTAN POTASSIUM 100 MG TABLET PO (20:33)
[2020-09-17 21:10] LABS: Glucose Point of Care 103 mg/dl (65-105)
[2020-09-17] MEDS: BENZONATATE 100 MG CAPSULE PO (21:15)
[2020-09-18] VITALS (23 sets, daily range): BP systolic 114–155; BP diastolic 50–76; PULSE 58–69; RESP 16–20; TEMP 35.8–37; O2SAT 93–97
[2020-09-18 01:36] LABS: Glucose Point of Care 133 mg/dl (65-105)
[2020-09-18] MEDS: METOCLOPRAMIDE HCL INJ 10 MG/2 ML VIAL IV PUSH ×3 (05:14→21:17)
[2020-09-18 07:28] LABS: Glucose Point of Care 122 mg/dl (65-105)
--- NOTE | 2020-09-18 08:27 | PC.NURSE ---
Patient to dialysis
--- NOTE | 2020-09-18 10:27 | PM.IMPN ---
Progress Note: A&P Assessment and Plan (1) Diabetic foot ulcer: Code(s): E11.621 - Type 2 diabetes mellitus with foot ulcer; L97.509 - Non-pressure chronic ulcer of other part of unspecified foot with unspecified severity Status: Acute Assessment and Plan: as per diabetic stewardship patient was started on Primaxin and vancomycin. Blood and wound cultures have been taken. Dr. Root was notified and agreed to see the patient. An MRI is ordered for that right foot. 09/13/20 15:21 Patient is 70-year-old female with history of end-stage renal disease on hemodialysis, history of diabetes, had developed right foot ulcer and was seen by her tile sorter started on oral antibiotic but the wound was not healing it was more pain and erythematous, MRI of the foot did not show any osteomyelitis, patient is started on imipenem and vancomycin, patient be seen by her tile sorter further recommendation to follow. 09/09 today patient was seen by her tile sorter and had a bedside wound debridement and cleaning patient tolerated, tile sorter will take the patient to OR tomorrow for proper I and D of the foot and further recommendation to follow, the wound culture is growing Proteus mirabilis sensitivities is pending will continue imipenem and vancomycin, will continue to monitor will have a PT OT evaluate the patient and further recommendation to follow. 09/10 today patient is scheduled to be taken to OR by her tile sorter for deep cleaning of the wound, patient complains right foot, denies any fever or chills, patient will have scheduled dialysis, patient wound culture is growing Proteus mirabilis and Enterococcus species, Proteus mirabilis is resistant to imipenem and sensitive to Rocephin, will stop imipenem and start the patient on Rocephin, will continue to monitor will follow-up and further recommendation to follow. 09/11 patient was taken to OR on 09/10 and had surgical I&D and irrigation of the wound, today patient feeling better however has difficulty with ambulation patient will work with physical therapy, denies any fever or chills, patient will have scheduled dialysis, patient wound culture is growing Proteus mirabilis and Enterococcus species, Proteus mirabilis is resistant to imipenem and sensitive to Rocephin, will stop imipenem and start the patient on Rocephin, will continue to monitor will follow-up and further recommendation to follow. 09/12 today patient work with physical therapist and now out of the bed and sitting in the chair, still complains of pain in her right foot, patient will be seen by tile sorter tomorrow and evaluate to wound and further recommendation to follow, will CPM. 09/13 today wound team is present in the room and wound is open and antibiotic beads are visible in the wound, there is no erythema nor any drainage, wound team will place wound vac, tile sorter requesting opinion of id to further stratify antibiotics management and further recommendation to follow, will be seen by Nephrology and will have scheduled dialysis, clinically stable will continue present management. 09/14 evaluated by surgery insisted further excisional debridement of her right foot ulcer and possible underlying abscess this is scheduled to be done tomorrow. Infectious Disease has been consulted and will continue antibiotic recommendation for infectious disease 09-15 plan for further excisional debridement of right foot ulcer today Andriaqumarissa is currently on hold. Infectious Disease has discontinued IV antibiotics and has placed on Levaquin oral for a month. Will keep her NPO because of cough with swallowing. Started on Reglan for history suggestive of gastroparesis. She states her symptoms are improved since the start of Reglan. Continue other current management 09/16: underwent further debridemnt today. continue antibiotics pe ID. rajeshis to winsome. contniue wound care and inpatie tHD as pe scheduld. 09/17: Doing well postsurgery vital stable. Continue
--- NOTE | 2020-09-18 11:55 | PM.PNNEP ---
Progress Note: A&P Assessment and Plan (1) End-stage renal disease (ESRD): Code(s): N18.6 - End stage renal disease Status: Chronic Assessment and Plan: HD today and continue //Sunday dialysis schedule follow electrolytes, volume status, and clearance (2) Diabetic foot ulcer: Code(s): E11.621 - Type 2 diabetes mellitus with foot ulcer; L97.509 - Non-pressure chronic ulcer of other part of unspecified foot with unspecified severity Status: Acute Assessment and Plan: s/p bedside debridement s/p formal I&D in OR on 09/10/20 (by Podiatry) and 09/16/20 (by General Surgery) follow culture data (as noted) on antibiotics Infectious Disease recommendations reviewed Podiatry and Surgery following (3) Hypertension: Qualifiers: Hypertension type: essential hypertension Qualified Code(s): I10 - Essential (primary) hypertension Code(s): I10 - Essential (primary) hypertension Status: Chronic Assessment and Plan: reasonable control follow trend of hemodynamics (4) Anemia: Code(s): D64.9 - Anemia, unspecified Status: Chronic Assessment and Plan: due to ESRD, acute infection, and operative procedure Epogen [facility] HD follow trend of H/H (5) Diabetes: Code(s): E11.9 - Type 2 diabetes mellitus without complications Status: Acute Assessment and Plan: follow accuchecks on Lantus and SSI Will continue to follow. Subjective Date/time seen: 09/18/20 11:55 Tolerating dialysis at the time of my visit (seen on HD at 11:40AM); pain control appears satisfactory with current medications; wound vac remains in place; no issues/events overnight. Exam Narrative: Exam Narrative: General: WD/WN female in NAD Heart: normal S1 and S2; no rub Lungs: clear to auscultation Abdomen: soft, nontender, nondistended, positive bowel sounds Extremities: no cyanosis or clubbing; trace edema Skin: dressings/wound VAC in place Objective Data Vital Signs Vital Signs: Vital Signs Temp Pulse Resp BP Pulse Ox 09/18/20 11:30 64 120/54 L 09/18/20 11:15 63 128/58 L 09/18/20 11:00 61 154/76 H 09/18/20 10:45 61 141/69 H 09/18/20 10:30 61 148/65 H 09/18/20 10:15 61 148/65 H 09/18/20 10:00 60 140/52 L 09/18/20 09:45 59 L 149/50 H 09/18/20 09:30 58 L 151/67 H 09/18/20 09:15 61 139/66 09/18/20 09:00 66 155/59 H 09/18/20 08:45 59 L 143/65 H 09/18/20 08:30 60 152/70 H 09/18/20 08:15 36.6 C 60 16 153/69 H 09/18/20 05:19 36.6 C 61 17 129/50 L 97 09/17/20 20:56 93 09/17/20 20:29 60 09/17/20 19:47 36.5 C 60 20 109/48 L 93 09/17/20 14:00 35.6 C L 57 L 12 115/45 L 93 Intake/Output Intake/Output: Intake & Output 09/15/20 09/16/20 09/17/20 09/18/20 23:59 23:59 23:59 23:59 Intake Total 440 440 490 50 Output Total 700 100 Balance 440 -260 490 -50 Meds/Results Medications: Active Medications Generic Name Dose Route Start Last Admin Trade Name Jitendra PRN Reason Stop Dose Admin Hydrocodone Bitart/Acetaminophen 2 tab 09/16/20 09:04 09/17/20 22:01 Hydrocodone/Acetaminophen (*Crx) 5-325 Mg Tablet PO 2 tab Q6H PRN Administration Pain Rated 7-10 Allopurinol 100 mg 09/08/20 08:00 09/17/20 09:55 Allopurinol 100 Mg Tablet PO 100 mg DAILY@0800 MICHELL Administration Amlodipine Besylate 10 mg 09/08/20 09:00 09/17/20 09:58 Amlodipine Besylate 5 Mg Tablet PO 10 mg DAILY MICHELL Administration Apixaban 2.5 mg 09/08/20 09:00 09/14/20 08:35 Apixaban 2.5 Mg Tablet PO 2.5 mg BID MICHELL Administration Atorvastatin Calcium 20 mg 09/08/20 09:00 09/17/20 09:58 Atorvastatin 20 Mg Tablet PO 20 mg DAILY MICHELL Administration Benzonatate 100 mg 09/12/20 09:29 09/17/20 21:15 Benzonatate 100 Mg Capsule PO 100 mg TID PRN Administration Cough Bupropion HCl 150 mg
[2020-09-18 12:38] LABS: Glucose Point of Care 117 mg/dl (65-105)
[2020-09-18] MEDS: guaiFENesin 12 HR 600 MG TABCR PO ×2 (12:53→20:11)
[2020-09-18] MEDS: allopurinoL 100 MG TABLET PO (12:53)
[2020-09-18] MEDS: busPIRone HCL 5 MG TABLET 15 MG PO ×2 (12:53→17:07)
[2020-09-18] MEDS: levoFLOXacin 250 MG TABLET PO (12:53)
[2020-09-18] MEDS: carvediloL 25 MG TABLET PO ×2 (12:54→20:12)
[2020-09-18] MEDS: DOCUSATE SODIUM 100 MG CAPSULE PO ×2 (12:54→20:11)
[2020-09-18] MEDS: buPROPion HCL SR (12 HR) 150 MG TAB PO (12:54)
[2020-09-18] MEDS: ATORVASTATIN 20 MG TABLET PO (12:57)
[2020-09-18] MEDS: amLODIPine BESYLATE 5 MG TABLET 10 MG PO (12:57)
[2020-09-18] MEDS: CALCIUM ACETATE 667 MG TABLET 1334 MG PO ×2 (12:57→17:08)
[2020-09-18] MEDS: polyethylene glycoL 3350 17 GM POWD.PACK PO (12:57)
[2020-09-18] MEDS: PANTOPRAZOLE SODIUM IV 40 MG VIAL IV PUSH ×2 (12:58→20:13)
[2020-09-18] MEDS: TOLNAFTATE 1% POWDER 45 GM BTL 1 APPLIC TOPICAL ×2 (12:58→20:13)
[2020-09-18] MEDS: LACTIC ACID 12% LOTION 225 BTL 1 APPLIC TOPICAL (12:58)
[2020-09-18] MEDS: BENZONATATE 100 MG CAPSULE PO ×2 (12:59→20:11)
--- NOTE | 2020-09-18 15:09 | PM.PNGS ---
Progress Note: A&P Assessment and Plan (1) Diabetic foot ulcer: Code(s): E11.621 - Type 2 diabetes mellitus with foot ulcer; L97.509 - Non-pressure chronic ulcer of other part of unspecified foot with unspecified severity Status: Acute Assessment and Plan: She has an infected right diabetic foot ulcer that is status post bedside debridement on 09/09/20 and surgical debridement with versajet use in the OR on 09/10/20. During surgery vancomycin antibiotic beads were placed in the wound. Wound culture from surgery showed growth of proteus mirabilis. ID consulted and switched her to oral levofloxacin. Subsequently the patient had further operative debridement on 09/16/2020 with use of Pulsavac irrigation followed by dressing with this is silver rope. Wound was inspected yesterday which showed improvement and it was able to be fitted with an irrigating wound VAC. Culture from wound from surgery on 09/16 still pending with gram-negative bacilli seen on Gram stain. (2) Peripheral arterial disease: Code(s): I73.9 - Peripheral vascular disease, unspecified Status: Acute Assessment and Plan: ABIs this admission were unable to be obtained due to inability to occlude the right brachial artery and could not assess the left due to her upper arm fistula. There was brisk systolic upstrokes at the bilateral posterior tibial and dorsalis pedis arteries, suggesting there is no high-grade stenosis, but there could still be mild to moderate stenosis. Could contribute to poor wound healing and cause further issues despite surgical debridement if she does have some arterial stenosis. (3) Cellulitis: Code(s): L03.90 - Cellulitis, unspecified Status: Acute Assessment and Plan: Localized erythema of the right foot. ID switched her to oral levofloxacin 250 mg Q48H from IV abx on 09/16/2020. (4) Diabetes mellitus with hyperglycemia, with long-term current use of insulin: Qualifiers: Diabetes mellitus type: type 2 Qualified Code(s): E11.65 - Type 2 diabetes mellitus with hyperglycemia; Z79.4 - long term care social worker (current) use of insulin Code(s): E11.65 - Type 2 diabetes mellitus with hyperglycemia; Z79.4 - long term care social worker (current) use of insulin Status: Acute Assessment and Plan: Last HgbA1C was 8.9 on this admission. Discussed the importance of glycemic control with the patient in regards to wound healing, infection, and preventing future issues. (5) End-stage renal disease (ESRD): Code(s): N18.6 - End stage renal disease Status: Chronic Assessment and Plan: Receives hemodialysis on Sunday, , and Sunday. Nephrology following. (6) Infarction of liver: Code(s): K76.3 - Infarction of liver Status: Acute Assessment and Plan: Hold Eliquis for surgery. Okay with surgery to resume Eliquis when felt to be needed by Medicine service. (7) Splenic infarction: Code(s): D73.5 - Infarction of spleen Status: Acute Additional Plan I have discussed the patient's case and plan of care with Dr. Nunez. Subjective Subjective Date/Time Seen: 09/18/20 15:09 Post Op day: 2 ( Status post debridement of diabetic foot wound on the right) Patient reports: no new complaints and still having pain ( both her back and the right foot) Interval history: Patient's white count is down compared to to 3 days ago. She is tolerating food. Glucose is in reasonable control. Patient is getting up to the chair once a day. Review of Systems Review of Systems: All systems reviewed & are unremarkable except as noted in HPI and below Constitutional: Constitutional: Reports as per HPI, Denies chills, Denies fatigue, Denies fever(s) and Reports weakness Eyes: Eyes: Denies change in vision and Reports loss of vision (diabetic retinopathy and legally blind) ENT: Reports system reviewed and no additional complaints, except as documented and Denies dizziness [facility]
[2020-09-18 16:26] LABS: Glucose Point of Care 142 mg/dl (65-105)
[2020-09-18] MEDS: HYDROcodone/acetaminophen (*CRX) 5-325 MG TABLET 2 TAB PO (20:12)
[2020-09-18] MEDS: LOSARTAN POTASSIUM 100 MG TABLET PO (20:13)
[2020-09-18 20:51] LABS: Glucose Point of Care 140 mg/dl (65-105)
[2020-09-19] MEDS: METOCLOPRAMIDE HCL INJ 10 MG/2 ML VIAL IV PUSH ×3 (05:14→20:55)
[2020-09-19 06:01] LABS: Estimated CRCL calculation 17 ml/min; Estimated Glomerular Filt Rate 13
[2020-09-19 06:23] VITALS: BP 143/43; PULSE 63; RESP 18; TEMP 35.9; O2SAT 98
[2020-09-19] MEDS: CALCIUM ACETATE 667 MG TABLET 1334 MG PO ×3 (08:39→16:56)
[2020-09-19] MEDS: busPIRone HCL 5 MG TABLET 15 MG PO ×2 (08:39→16:58)
[2020-09-19] MEDS: amLODIPine BESYLATE 5 MG TABLET 10 MG PO (08:39)
[2020-09-19 08:40] VITALS: BP 128/66
[2020-09-19] MEDS: guaiFENesin 12 HR 600 MG TABCR PO ×2 (08:40→20:54)
[2020-09-19] MEDS: PANTOPRAZOLE SODIUM IV 40 MG VIAL IV PUSH ×2 (08:40→20:55)
[2020-09-19] MEDS: carvediloL 25 MG TABLET PO ×2 (08:40→20:54)
[2020-09-19] MEDS: DOCUSATE SODIUM 100 MG CAPSULE PO ×2 (08:40→20:54)
[2020-09-19] MEDS: allopurinoL 100 MG TABLET PO (08:40)
[2020-09-19] MEDS: TOLNAFTATE 1% POWDER 45 GM BTL 1 APPLIC TOPICAL ×2 (08:41→20:56)
[2020-09-19] MEDS: LACTIC ACID 12% LOTION 225 BTL 1 APPLIC TOPICAL (08:41)
[2020-09-19] MEDS: buPROPion HCL SR (12 HR) 150 MG TAB PO (08:41)
[2020-09-19] MEDS: ATORVASTATIN 20 MG TABLET PO (08:41)
[2020-09-19] MEDS: polyethylene glycoL 3350 17 GM POWD.PACK PO (08:41)
[2020-09-19 09:27] LABS: Glucose Point of Care 140 mg/dl (65-105)
[2020-09-19] MEDS: traMADol HCL (*CRX) 50 MG TABLET PO (10:31)
--- NOTE | 2020-09-19 11:03 | PM.IMPN ---
Progress Note: A&P Assessment and Plan (1) Diabetic foot ulcer: Code(s): E11.621 - Type 2 diabetes mellitus with foot ulcer; L97.509 - Non-pressure chronic ulcer of other part of unspecified foot with unspecified severity Status: Acute Assessment and Plan: as per diabetic stewardship patient was started on Primaxin and vancomycin. Blood and wound cultures have been taken. Dr. Root was notified and agreed to see the patient. An MRI is ordered for that right foot. 09/13/20 15:21 Patient is 70-year-old female with history of end-stage renal disease on hemodialysis, history of diabetes, had developed right foot ulcer and was seen by her hard candy spinner started on oral antibiotic but the wound was not healing it was more pain and erythematous, MRI of the foot did not show any osteomyelitis, patient is started on imipenem and vancomycin, patient be seen by her hard candy spinner further recommendation to follow. 09/09 today patient was seen by her hard candy spinner and had a bedside wound debridement and cleaning patient tolerated, hard candy spinner will take the patient to OR tomorrow for proper I and D of the foot and further recommendation to follow, the wound culture is growing Proteus mirabilis sensitivities is pending will continue imipenem and vancomycin, will continue to monitor will have a PT OT evaluate the patient and further recommendation to follow. 09/10 today patient is scheduled to be taken to OR by her hard candy spinner for deep cleaning of the wound, patient complains right foot, denies any fever or chills, patient will have scheduled dialysis, patient wound culture is growing Proteus mirabilis and Enterococcus species, Proteus mirabilis is resistant to imipenem and sensitive to Rocephin, will stop imipenem and start the patient on Rocephin, will continue to monitor will follow-up and further recommendation to follow. 09/11 patient was taken to OR on 09/10 and had surgical I&D and irrigation of the wound, today patient feeling better however has difficulty with ambulation patient will work with physical therapy, denies any fever or chills, patient will have scheduled dialysis, patient wound culture is growing Proteus mirabilis and Enterococcus species, Proteus mirabilis is resistant to imipenem and sensitive to Rocephin, will stop imipenem and start the patient on Rocephin, will continue to monitor will follow-up and further recommendation to follow. 09/12 today patient work with physical therapist and now out of the bed and sitting in the chair, still complains of pain in her right foot, patient will be seen by hard candy spinner tomorrow and evaluate to wound and further recommendation to follow, will CPM. 09/13 today wound team is present in the room and wound is open and antibiotic beads are visible in the wound, there is no erythema nor any drainage, wound team will place wound vac, hard candy spinner requesting opinion of id to further stratify antibiotics management and further recommendation to follow, will be seen by Nephrology and will have scheduled dialysis, clinically stable will continue present management. 09/14 evaluated by surgery insisted further excisional debridement of her right foot ulcer and possible underlying abscess this is scheduled to be done tomorrow. Infectious Disease has been consulted and will continue antibiotic recommendation for infectious disease 09-15 plan for further excisional debridement of right foot ulcer today Andriaqumarissa is currently on hold. Infectious Disease has discontinued IV antibiotics and has placed on Levaquin oral for a month. Will keep her NPO because of cough with swallowing. Started on Reglan for history suggestive of gastroparesis. She states her symptoms are improved since the start of Reglan. Continue other current management 09/16: underwent further debridemnt today. continue antibiotics pe ID. rajeshis to winsome. contniue wound care and inpatie tHD as pe scheduld. 09/17: Doing well postsurgery vital stable. Continue
--- NOTE | 2020-09-19 12:02 | PCOTNOTE ---
OT Re-assessment attempted this date. Per RN, hold this date due to wound vac and not wanting patient out of bed at this time. OT to check with RN tomorrow prior to attempting Re-assess.
--- NOTE | 2020-09-19 13:23 | PM.PNNEP ---
Progress Note: A&P Assessment and Plan (1) End-stage renal disease (ESRD): Code(s): N18.6 - End stage renal disease Status: Chronic Assessment and Plan: HD yesterday and continue //Sunday dialysis schedule follow electrolytes, volume status, and clearance (2) Diabetic foot ulcer: Code(s): E11.621 - Type 2 diabetes mellitus with foot ulcer; L97.509 - Non-pressure chronic ulcer of other part of unspecified foot with unspecified severity Status: Acute Assessment and Plan: s/p bedside debridement s/p formal I&D in OR on 09/10/20 (by Podiatry) and 09/16/20 (by General Surgery) follow culture data (as noted) on antibiotics Infectious Disease recommendations noted Podiatry and Surgery following (3) Hypertension: Qualifiers: Hypertension type: essential hypertension Qualified Code(s): I10 - Essential (primary) hypertension Code(s): I10 - Essential (primary) hypertension Status: Chronic Assessment and Plan: reasonable control follow trend of hemodynamics (4) Anemia: Code(s): D64.9 - Anemia, unspecified Status: Chronic Assessment and Plan: due to ESRD, acute infection, and operative procedure Epogen [facility] HD follow trend of H/H (5) Diabetes: Code(s): E11.9 - Type 2 diabetes mellitus without complications Status: Acute Assessment and Plan: follow accuchecks on Lantus and SSI Will continue to follow. Subjective Date/time seen: 09/19/20 13:23 Tolerated dialysis treatment yesterday without any issues or problems; overall, she feels much better; pain control satisfactory; no other events/issues overnight or earlier this AM; tolerating wound vac therapy as well. Exam Narrative: Exam Narrative: General: WD/WN female in NAD Heart: normal S1 and S2; no rub Lungs: clear to auscultation Abdomen: soft, nontender, nondistended, positive bowel sounds Extremities: no cyanosis or clubbing; trace edema Skin: dressings/wound VAC in place Objective Data Vital Signs Vital Signs: Vital Signs Temp Pulse Resp BP Pulse Ox 09/19/20 08:40 128/66 09/19/20 06:23 35.9 C L 63 18 143/43 H 98 09/18/20 20:33 93 09/18/20 20:12 68 09/18/20 20:10 36.0 C L 67 20 134/61 93 Intake/Output Intake/Output: Intake & Output 09/16/20 09/17/20 09/18/20 09/19/20 23:59 23:59 23:59 23:59 Intake Total 440 490 370 60 Output Total 700 1510 25 Balance -260 490 -1140 35 Meds/Results Medications: Active Medications Generic Name Dose Route Start Last Admin Trade Name Jitendra PRN Reason Stop Dose Admin Hydrocodone Bitart/Acetaminophen 2 tab 09/16/20 09:04 09/19/20 13:42 Hydrocodone/Acetaminophen (*Crx) 5-325 Mg Tablet PO 2 tab Q6H PRN Administration Pain Rated 7-10 Allopurinol 100 mg 09/08/20 08:00 09/19/20 08:40 Allopurinol 100 Mg Tablet PO 100 mg DAILY@0800 MICHELL Administration Amlodipine Besylate 10 mg 09/08/20 09:00 09/19/20 08:39 Amlodipine Besylate 5 Mg Tablet PO 10 mg DAILY MICHELL Administration Apixaban 2.5 mg 09/08/20 09:00 09/14/20 08:35 Apixaban 2.5 Mg Tablet PO 2.5 mg BID MICHELL Administration Atorvastatin Calcium 20 mg 09/08/20 09:00 09/19/20 08:41 Atorvastatin 20 Mg Tablet PO 20 mg DAILY MICHELL Administration Benzonatate 100 mg 09/12/20 09:29 09/18/20 20:11 Benzonatate 100 Mg Capsule PO 100 mg TID PRN Administration Cough Bupropion HCl 150 mg 09/08/20 09:00 09/19/20 08:41 Bupropion Hcl Sr (12 Hr) 150 Mg Tab PO 150 mg DAILY MICHELL Administration Buspirone HCl 15 mg 09/08/20 09:00 09/19/20 08:39 Buspirone Hcl 5 Mg Tablet PO 15 mg BID MICHELL Administration Calcium Acetate 1,334 mg 09/16/20 17:00 09/19/20 13:41 Calcium Acetate 667 Mg Tablet PO 1,334 mg TID MICHELL Administration Carvedilol 25 mg 09/07/20 23:55 09/19/20 08:40 Carvedilol 25 Mg Tablet PO 25 mg Q12H
[2020-09-19] MEDS: HYDROcodone/acetaminophen (*CRX) 5-325 MG TABLET 2 TAB PO ×2 (13:42→20:54)
[2020-09-19 14:00] VITALS: BP 128/50; PULSE 62; RESP 20; TEMP 36.1; O2SAT 93
[2020-09-19 17:42] LABS: Glucose Point of Care 106 mg/dl (65-105)
[2020-09-19 20:00] VITALS: PULSE 74; RESP 20; O2SAT 97
[2020-09-19 20:10] VITALS: BP 147/61; PULSE 65; RESP 20; TEMP 36.4; O2SAT 97
[2020-09-19 20:54] VITALS: PULSE 74
[2020-09-19] MEDS: LOSARTAN POTASSIUM 100 MG TABLET PO (20:54)
[2020-09-19 21:21] LABS: Glucose Point of Care 140 mg/dl (65-105)
[2020-09-20] VITALS (23 sets, daily range): BP systolic 127–162; BP diastolic 56–78; PULSE 59–76; RESP 16–20; TEMP 35.8–37; O2SAT 91–97
[2020-09-20] MEDS: METOCLOPRAMIDE HCL INJ 10 MG/2 ML VIAL IV PUSH ×3 (05:54→20:09)
[2020-09-20 08:01] LABS: Glucose Point of Care 118 mg/dl (65-105)
[2020-09-20] MEDS: carvediloL 25 MG TABLET PO ×2 (08:35→20:09)
[2020-09-20] MEDS: levoFLOXacin 250 MG TABLET PO (08:35)
[2020-09-20] MEDS: CALCIUM ACETATE 667 MG TABLET 1334 MG PO ×3 (08:35→18:24)
[2020-09-20] MEDS: ATORVASTATIN 20 MG TABLET PO (08:36)
[2020-09-20] MEDS: amLODIPine BESYLATE 5 MG TABLET 10 MG PO (08:36)
[2020-09-20] MEDS: buPROPion HCL SR (12 HR) 150 MG TAB PO (08:36)
[2020-09-20] MEDS: DOCUSATE SODIUM 100 MG CAPSULE PO ×2 (08:36→20:10)
[2020-09-20] MEDS: allopurinoL 100 MG TABLET PO (08:36)
[2020-09-20] MEDS: busPIRone HCL 5 MG TABLET 15 MG PO ×2 (08:36→18:24)
[2020-09-20] MEDS: guaiFENesin 12 HR 600 MG TABCR PO ×2 (08:36→20:09)
[2020-09-20] MEDS: polyethylene glycoL 3350 17 GM POWD.PACK PO (08:37)
[2020-09-20] MEDS: LACTIC ACID 12% LOTION 225 BTL 1 APPLIC TOPICAL (08:37)
[2020-09-20] MEDS: PANTOPRAZOLE SODIUM IV 40 MG VIAL IV PUSH ×2 (08:37→20:09)
[2020-09-20] MEDS: TOLNAFTATE 1% POWDER 45 GM BTL 1 APPLIC TOPICAL ×2 (08:38→20:16)
--- NOTE | 2020-09-20 09:12 | PM.IMPN ---
Progress Note: A&P Assessment and Plan (1) Diabetic foot ulcer: Code(s): E11.621 - Type 2 diabetes mellitus with foot ulcer; L97.509 - Non-pressure chronic ulcer of other part of unspecified foot with unspecified severity Status: Acute Assessment and Plan: as per diabetic stewardship patient was started on Primaxin and vancomycin. Blood and wound cultures have been taken. Dr. Root was notified and agreed to see the patient. An MRI is ordered for that right foot. 09/13/20 15:21 Patient is 70-year-old female with history of end-stage renal disease on hemodialysis, history of diabetes, had developed right foot ulcer and was seen by her back up worker started on oral antibiotic but the wound was not healing it was more pain and erythematous, MRI of the foot did not show any osteomyelitis, patient is started on imipenem and vancomycin, patient be seen by her back up worker further recommendation to follow. 09/09 today patient was seen by her back up worker and had a bedside wound debridement and cleaning patient tolerated, back up worker will take the patient to OR tomorrow for proper I and D of the foot and further recommendation to follow, the wound culture is growing Proteus mirabilis sensitivities is pending will continue imipenem and vancomycin, will continue to monitor will have a PT OT evaluate the patient and further recommendation to follow. 09/10 today patient is scheduled to be taken to OR by her back up worker for deep cleaning of the wound, patient complains right foot, denies any fever or chills, patient will have scheduled dialysis, patient wound culture is growing Proteus mirabilis and Enterococcus species, Proteus mirabilis is resistant to imipenem and sensitive to Rocephin, will stop imipenem and start the patient on Rocephin, will continue to monitor will follow-up and further recommendation to follow. 09/11 patient was taken to OR on 09/10 and had surgical I&D and irrigation of the wound, today patient feeling better however has difficulty with ambulation patient will work with physical therapy, denies any fever or chills, patient will have scheduled dialysis, patient wound culture is growing Proteus mirabilis and Enterococcus species, Proteus mirabilis is resistant to imipenem and sensitive to Rocephin, will stop imipenem and start the patient on Rocephin, will continue to monitor will follow-up and further recommendation to follow. 09/12 today patient work with physical therapist and now out of the bed and sitting in the chair, still complains of pain in her right foot, patient will be seen by back up worker tomorrow and evaluate to wound and further recommendation to follow, will CPM. 09/13 today wound team is present in the room and wound is open and antibiotic beads are visible in the wound, there is no erythema nor any drainage, wound team will place wound vac, back up worker requesting opinion of id to further stratify antibiotics management and further recommendation to follow, will be seen by Nephrology and will have scheduled dialysis, clinically stable will continue present management. 09/14 evaluated by surgery insisted further excisional debridement of her right foot ulcer and possible underlying abscess this is scheduled to be done tomorrow. Infectious Disease has been consulted and will continue antibiotic recommendation for infectious disease 09-15 plan for further excisional debridement of right foot ulcer today Andriaqumarissa is currently on hold. Infectious Disease has discontinued IV antibiotics and has placed on Levaquin oral for a month. Will keep her NPO because of cough with swallowing. Started on Reglan for history suggestive of gastroparesis. She states her symptoms are improved since the start of Reglan. Continue other current management 09/16: underwent further debridemnt today. continue antibiotics pe ID. rajeshis to winsome. contniue wound care and inpatie tHD as pe scheduld. 09/17: Doing well postsurgery vital stable. Continue
--- NOTE | 2020-09-20 09:35 | PCNFU ---
Nutrition Follow-Up Complete: Increased Protein needs as related to wounds as evidenced by right foot diabetic ulcer. Goal: Meet estimated nutritional needs Progressing towards goal. We will continue current goal. Pt current nutrition is Minced and Moist, Level 5 Last recorded weight is 120.4 kg, down from 120.6 kg on admit. Bowel Motility:+BM reported 09/19 Labs Reviewed:09/19 GFR 13,Cr 3.5 Meds Noted:Reglan,Colace,Miralax,Lipitor,Cozaar, Norvasc. Additional Notes: Patient seen today for nutrition follow up. Patient states appetite is improving. hemodialysis Sunday//Sunday. Skin: Right Foot diabetic ulcer. Wound Vac in place. Agree with diet orders. Monitoring: Will monitor every 5 days.
--- NOTE | 2020-09-20 11:03 | PM.PNNEP ---
Progress Note: A&P Assessment and Plan (1) End-stage renal disease (ESRD): Code(s): N18.6 - End stage renal disease Status: Chronic Assessment and Plan: HD due tomorrow follow electrolytes, volume status, and clearance (2) Diabetic foot ulcer: Code(s): E11.621 - Type 2 diabetes mellitus with foot ulcer; L97.509 - Non-pressure chronic ulcer of other part of unspecified foot with unspecified severity Status: Acute Assessment and Plan: s/p bedside debridement s/p formal I&D in OR on 09/10/20 (by Podiatry) and 09/16/20 (by General Surgery) Has a wound VAC on. on antibiotics Infectious Disease recommendations noted Podiatry and Surgery following (3) Hypertension: Qualifiers: Hypertension type: essential hypertension Qualified Code(s): I10 - Essential (primary) hypertension Code(s): I10 - Essential (primary) hypertension Status: Chronic Assessment and Plan: blood pressure is doing pretty well. follow trend of hemodynamics (4) Anemia: Code(s): D64.9 - Anemia, unspecified Status: Chronic Assessment and Plan: due to ESRD, acute infection, and operative procedure [facility] HD Hemoglobin 9.5 Recently. Check another tomorrow. (5) Diabetes: Code(s): E11.9 - Type 2 diabetes mellitus without complications Status: Acute Assessment and Plan: follow accuchecks on Lantus and SSI Subjective Date/time seen: 09/20/20 11:03 Interval history: Kelley is feeling better today. She has had a cough for months which is helped by a medicine she has at home. Nothing else seems to work. It is [id number] diabetic cough reliever. She is going to bring it in from home. Exam Narrative: Exam Narrative: General: WD/WN female in NAD Heart: normal S1 and S2; no rub or gallop Lungs: clear to auscultation Abdomen: soft, nontender, nondistended, positive bowel sounds Extremities: no cyanosis or clubbing; trace edema Skin: dressings/wound VAC in place Objective Data Vital Signs Vital Signs: Vital Signs - 24 hr 09/19/20 14:00 09/19/20 20:00 09/19/20 20:10 Temperature 36.1 C L 36.4 C Pulse Rate 62 74 65 Respiratory Rate 20 20 20 Blood Pressure 128/50 L 147/61 H Pulse Oximetry 93 97 97 09/19/20 20:54 09/20/20 04:33 09/20/20 08:00 Temperature 36.1 C L Pulse Rate 74 60 Respiratory Rate 18 Blood Pressure 147/56 H Pulse Oximetry 95 95 09/20/20 08:35 Temperature Pulse Rate 60 Respiratory Rate Blood Pressure Pulse Oximetry Intake/Output Intake/Output: Intake & Output 09/17/20 09/18/20 09/19/20 09/20/20 23:59 23:59 23:59 23:59 Intake Total 490 370 210 220 Output Total 1510 25 Balance 490 -1140 185 220 Meds/Results Medications: Active Medications Generic Name Dose Route Start Last Admin Trade Name Freq PRN Reason Stop Dose Admin Hydrocodone Bitart/Acetaminophen 2 tab 09/16/20 09:04 09/19/20 20:54 Hydrocodone/Acetaminophen (*Crx) 5-325 Mg Tablet PO 2 tab Q6H PRN Administration Pain Rated 7-10 Allopurinol 100 mg 09/08/20 08:00 09/20/20 08:36 Allopurinol 100 Mg Tablet PO 100 mg DAILY@0800 MICHELL Administration Amlodipine Besylate 10 mg 09/08/20 09:00 09/20/20 08:36 Amlodipine Besylate 5 Mg Tablet PO 10 mg DAILY MICHELL Administration Apixaban 2.5 mg 09/08/20 09:00 09/14/20 08:35 Apixaban 2.5 Mg Tablet PO 2.5 mg BID MICHELL Administration Atorvastatin Calcium 20 mg 09/08/20 09:00 09/20/20 08:36 Atorvastatin 20 Mg Tablet PO 20 mg DAILY MICHELL Administration Benzonatate 100 mg 09/12/20 09:29 09/18/20 20:11 Benzonatate 100 Mg Capsule PO 100 mg TID PRN Administration Cough Bupropion HCl 150 mg 09/08/20 09:00 09/20/20 08:36 Bupropion Hcl Sr (12 Hr) 150 Mg Tab PO 150 mg DAILY MICHELL Administration Buspirone HCl 15 mg 09/08/20 09:00 09/20/20 08:36 Buspirone Hcl 5 Mg Tablet PO
[2020-09-20] MEDS: HYDROcodone/acetaminophen (*CRX) 5-325 MG TABLET 2 TAB PO ×2 (11:44→20:13)
[2020-09-20 11:46] LABS: Glucose Point of Care 118 mg/dl (65-105)
--- NOTE | 2020-09-20 16:01 | PM.PNGS ---
Progress Note: A&P Assessment and Plan (1) Diabetic foot ulcer: Code(s): E11.621 - Type 2 diabetes mellitus with foot ulcer; L97.509 - Non-pressure chronic ulcer of other part of unspecified foot with unspecified severity Status: Acute Assessment and Plan: She has an infected right diabetic foot ulcer that is status post bedside debridement on 09/09/20 and surgical debridement with versajet use in the OR on 09/10/20. During surgery vancomycin antibiotic beads were placed in the wound. Wound culture from surgery showed growth of proteus mirabilis. ID consulted and switched her to oral levofloxacin. Subsequently the patient had further operative debridement on 09/16/2020 with use of Pulsavac irrigation followed by dressing with this is silver rope. Cultures from the surgery on 09/16/2020 are still preliminary period the g stain is showing gram-negative bacilli. (2) Peripheral arterial disease: Code(s): I73.9 - Peripheral vascular disease, unspecified Status: Acute Assessment and Plan: ABIs this admission were unable to be obtained due to inability to occlude the right brachial artery and could not assess the left due to her upper arm fistula. There was brisk systolic upstrokes at the bilateral posterior tibial and dorsalis pedis arteries, suggesting there is no high-grade stenosis, but there could still be mild to moderate stenosis. Could contribute to poor wound healing and cause further issues despite surgical debridement if she does have some arterial stenosis. (3) Cellulitis: Code(s): L03.90 - Cellulitis, unspecified Status: Acute Assessment and Plan: Localized erythema of the right foot. ID switched her to oral levofloxacin 250 mg Q48H from IV abx on 09/16/2020. (4) Diabetes mellitus with hyperglycemia, with long-term current use of insulin: Qualifiers: Diabetes mellitus type: type 2 Qualified Code(s): E11.65 - Type 2 diabetes mellitus with hyperglycemia; Z79.4 - detention (current) use of insulin Code(s): E11.65 - Type 2 diabetes mellitus with hyperglycemia; Z79.4 - detention (current) use of insulin Status: Acute Assessment and Plan: Last HgbA1C was 8.9 on this admission. Discussed the importance of glycemic control with the patient in regards to wound healing, infection, and preventing future issues. (5) End-stage renal disease (ESRD): Code(s): N18.6 - End stage renal disease Status: Chronic Assessment and Plan: Receives hemodialysis on Sunday, , and Sunday. Nephrology following. (6) Infarction of liver: Code(s): K76.3 - Infarction of liver Status: Acute Assessment and Plan: Okay with surgery to resume Eliquis when felt to be needed by Medicine service. (7) Splenic infarction: Code(s): D73.5 - Infarction of spleen Status: Acute Assessment and Plan: Unknown etiology Subjective Subjective Date/Time Seen: 09/20/20 16:01 Post Op day: POD # 6 Patient reports: no new complaints and feels better Interval history: patient states she is having less pain in her right foot and is tolerating the wound VAC well. The lotion on her legs is helping get rid of the crusting and her legs feel better she has definitely decreased edema in the legs. Son was present at the bedside we discussed probably going to ECF for continued care. Review of Systems Review of Systems: All systems reviewed & are unremarkable except as noted in HPI and below Constitutional: Constitutional: Reports as per HPI, Denies chills, Denies fatigue, Denies fever(s) and Reports weakness Eyes: Eyes: Denies change in vision and Reports loss of vision (diabetic retinopathy and legally blind) ENT: Reports system reviewed and no additional complaints, except as documented and Denies dizziness Cardiovascular: Cardiovascular: Reports no additional cardiovascular complaints, Denies chest pain and Reports leg edema
[2020-09-20 18:29] LABS: Glucose Point of Care 118 mg/dl (65-105)
[2020-09-20] MEDS: LOSARTAN POTASSIUM 100 MG TABLET PO (20:09)
[2020-09-20 20:35] LABS: Glucose Point of Care 144 mg/dl (65-105)
[2020-09-21] VITALS (7 sets, daily range): BP systolic 147–151; BP diastolic 52–74; PULSE 62–63; RESP 12–18; TEMP 36.1–36.6; O2SAT 91–96
[2020-09-21 05:39] LABS: Hematocrit 33.3 % (37.0-47.0); Mean Corpuscular Hemoglobin 31.5 pg (26-34); Mean Platelet Volume 10.2 fl (7.4-10.4); Platelet Count Result 252 k/mm3 (150-375); Red Blood Count 3.17 M/mm3 (4.2-5.4)
[2020-09-21 05:52] LABS: Alanine Aminotransferase 13 U/L (4-35); Albumin Level 3.1 g/dL (3.5-5.1); Alkaline Phosphatase 208 U/L (38-126); Anion Gap 7 mmol/L (8-16); Aspartate Amino Transferase 23 U/L (14-36); Blood Urea Nitrogen 16 mg/dL (7-17); Calcium 9.7 mg/dL (8.4-10.2); Carbon Dioxide 33 mmol/L (22-30); Chloride 98 mmol/L (98-107); Estimated CRCL calculation 18 ml/min; Estimated Glomerular Filt Rate 14; Glucose 149 mg/dL (65-105); Phosphorus 2.8 mg/dL (2.5-4.5); Potassium 4.2 mmol/L (3.4-5.0); Sodium 138 mmol/L (137-145)
[2020-09-21] MEDS: METOCLOPRAMIDE HCL INJ 10 MG/2 ML VIAL IV PUSH ×3 (05:52→21:12)
--- NOTE | 2020-09-21 08:26 | PM.PNNEP ---
Progress Note: A&P Assessment and Plan (1) End-stage renal disease (ESRD): Code(s): N18.6 - End stage renal disease Status: Chronic Assessment and Plan: HD due Today follow electrolytes, volume status, and clearance (2) Diabetic foot ulcer: Code(s): E11.621 - Type 2 diabetes mellitus with foot ulcer; L97.509 - Non-pressure chronic ulcer of other part of unspecified foot with unspecified severity Status: Acute Assessment and Plan: s/p bedside debridement s/p formal I&D in OR on 09/10/20 (by Podiatry) and 09/16/20 (by General Surgery) Has a wound VAC on. on antibiotics Infectious Disease recommendations noted Podiatry and Surgery following (3) Hypertension: Qualifiers: Hypertension type: essential hypertension Qualified Code(s): I10 - Essential (primary) hypertension Code(s): I10 - Essential (primary) hypertension Status: Chronic Assessment and Plan: blood pressure is doing pretty well. follow trend of hemodynamics (4) Anemia: Code(s): D64.9 - Anemia, unspecified Status: Chronic Assessment and Plan: due to ESRD, acute infection, and operative procedure [facility] HD hemoglobin 10 today. (5) Diabetes: Code(s): E11.9 - Type 2 diabetes mellitus without complications Status: Acute Assessment and Plan: follow accuchecks on Lantus and SSI Subjective Date/time seen: 09/21/20 08:26 Interval history: Kelley is comfortable. She is due for dialysis today. Exam Narrative: Exam Narrative: General: WD/WN female in NAD Heart: normal S1 and S2; no rub or gallop Lungs: clear Abdomen: soft, nontender, nondistended, positive bowel sounds Extremities: trace edema Skin: dressings/wound VAC in place Objective Data Vital Signs Vital Signs: Vital Signs - 24 hr 09/20/20 08:35 09/20/20 13:57 09/20/20 14:50 Temperature 35.8 C L 36.7 C Pulse Rate 60 60 63 Respiratory Rate 20 18 Blood Pressure 127/59 L 143/67 H Pulse Oximetry 97 09/20/20 15:01 09/20/20 15:17 09/20/20 15:30 Temperature Pulse Rate 59 L 60 61 Respiratory Rate Blood Pressure 139/68 138/67 135/68 Pulse Oximetry 09/20/20 15:45 09/20/20 16:00 09/20/20 16:15 Temperature Pulse Rate 60 60 61 Respiratory Rate Blood Pressure 144/64 H 144/64 H 154/78 H Pulse Oximetry 09/20/20 16:30 09/20/20 16:45 09/20/20 17:00 Temperature Pulse Rate 62 61 62 Respiratory Rate Blood Pressure 144/75 H 162/74 H 153/78 H Pulse Oximetry 09/20/20 17:17 09/20/20 17:30 09/20/20 17:45 Temperature Pulse Rate 61 74 62 Respiratory Rate Blood Pressure 158/71 H 147/70 H 155/75 H Pulse Oximetry 09/20/20 17:50 09/20/20 18:04 09/20/20 19:34 Temperature 36.4 C 36.3 C L Pulse Rate 63 62 65 Respiratory Rate 16 18 Blood Pressure 153/72 H 158/73 H 135/60 Pulse Oximetry 96 09/20/20 20:00 09/20/20 20:09 09/20/20 21:57 Temperature Pulse Rate 76 76 Respiratory Rate 18 Blood Pressure Pulse Oximetry 91 91 09/21/20 04:39 Temperature 36.2 C L Pulse Rate 62 Respiratory Rate 16 Blood Pressure 147/52 H Pulse Oximetry 95 Intake/Output Intake/Output: Intake & Output 09/18/20 09/19/20 09/20/20 09/21/20 23:59 23:59 23:59 23:59 Intake Total 370 210 540 200 Output Total 1510 25 2279 Balance -1140 185 -1739 200 Meds/Results Medications: Active Medications Generic Name Dose Route Start Last Admin Trade Name Freq PRN Reason Stop Dose Admin Hydrocodone Bitart/Acetaminophen 2 tab 09/16/20 09:04 09/20/20 20:13 Hydrocodone/Acetaminophen (*Crx) 5-325 Mg Tablet PO 2 tab Q6H PRN Administration Pain Rated 7-10 Allopurinol 100 mg 09/08/20 08:00 09/20/20 08:36 Allopurinol 100 Mg Tablet PO 100 mg DAILY@0800 MICHELL Administration Amlodipine Besylate 10 mg 09/08/20 09:00 09/20/20 08:36 Amlodipine Besylate 5 Mg Tablet PO 10 mg
[2020-09-21 08:45] LABS: Glucose Point of Care 131 mg/dl (65-105)
[2020-09-21] MEDS: buPROPion HCL SR (12 HR) 150 MG TAB PO (10:10)
[2020-09-21] MEDS: allopurinoL 100 MG TABLET PO (10:11)
[2020-09-21] MEDS: CALCIUM ACETATE 667 MG TABLET 1334 MG PO ×3 (10:11→16:50)
[2020-09-21] MEDS: DOCUSATE SODIUM 100 MG CAPSULE PO ×2 (10:11→20:44)
[2020-09-21] MEDS: busPIRone HCL 5 MG TABLET 15 MG PO ×2 (10:11→16:51)
[2020-09-21] MEDS: guaiFENesin 12 HR 600 MG TABCR PO ×2 (10:12→20:45)
[2020-09-21] MEDS: LACTIC ACID 12% LOTION 225 BTL 1 APPLIC TOPICAL (10:12)
[2020-09-21] MEDS: polyethylene glycoL 3350 17 GM POWD.PACK PO (10:13)
[2020-09-21] MEDS: PANTOPRAZOLE SODIUM IV 40 MG VIAL IV PUSH ×2 (10:13→20:43)
[2020-09-21] MEDS: traMADol HCL (*CRX) 50 MG TABLET PO (10:46)
[2020-09-21] MEDS: amLODIPine BESYLATE 5 MG TABLET 10 MG PO (11:35)
[2020-09-21] MEDS: ATORVASTATIN 20 MG TABLET PO (11:35)
[2020-09-21] MEDS: carvediloL 25 MG TABLET PO ×2 (11:36→20:45)
[2020-09-21] MEDS: TOLNAFTATE 1% POWDER 45 GM BTL 1 APPLIC TOPICAL ×2 (11:37→20:47)
[2020-09-21] MEDS: HYDROcodone/acetaminophen (*CRX) 5-325 MG TABLET 2 TAB PO (12:20)
[2020-09-21 12:36] LABS: Glucose Point of Care 149 mg/dl (65-105)
--- NOTE | 2020-09-21 13:07 | PM.PNGS ---
Progress Note: A&P Assessment and Plan (1) Diabetic foot ulcer: Code(s): E11.621 - Type 2 diabetes mellitus with foot ulcer; L97.509 - Non-pressure chronic ulcer of other part of unspecified foot with unspecified severity Status: Acute Assessment and Plan: She has an infected right diabetic foot ulcer that is status post bedside debridement on 09/09/20 and surgical debridement with versajet use in the OR on 09/10/20. During surgery vancomycin antibiotic beads were placed in the wound. Wound culture from surgery showed growth of proteus mirabilis. ID consulted and switched her to oral levofloxacin. She was taken back to the OR by Dr. Nunez on 09/16/20 for excisional debridement and Pulsavac irrigation. Irrigating wound VAC changed today and the wound bed is improving. There is some growth of granulation tissue noted and less necrotic debri and slough in the wound bed. Preliminary cultures from surgery on 09/16/20 show a mix of non-predominating organisms of questionable significance, awaiting final. Continue oral abx per ID. -- Will plan on removing the irrigating wound VAC again on . If the wound looks good and it appears appropriate to switch to a non-irrigating wound VAC, then she could potentially be discharged that day to the SNF and they could apply the wound VAC once she arrives there, IF okay with medical service. (2) Peripheral arterial disease: Code(s): I73.9 - Peripheral vascular disease, unspecified Status: Acute Assessment and Plan: ABIs this admission were unable to be obtained due to inability to occlude the right brachial artery and could not assess the left due to her upper arm fistula. There was brisk systolic upstrokes at the bilateral posterior tibial and dorsalis pedis arteries, suggesting there is no high-grade stenosis, but there could still be mild to moderate stenosis. Could contribute to poor wound healing and cause further issues despite surgical debridement if she does have some arterial stenosis. (3) Cellulitis: Code(s): L03.90 - Cellulitis, unspecified Status: Acute Assessment and Plan: Improving localized erythema. ID switched her to oral levofloxacin 250 mg Q48H from IV abx on 09/16/2020. (4) Diabetes mellitus with hyperglycemia, with long-term current use of insulin: Qualifiers: Diabetes mellitus type: type 2 Qualified Code(s): E11.65 - Type 2 diabetes mellitus with hyperglycemia; Z79.4 - long-term (current) use of insulin Code(s): E11.65 - Type 2 diabetes mellitus with hyperglycemia; Z79.4 - long-term (current) use of insulin Status: Acute Assessment and Plan: Last HgbA1C was 8.9 on this admission. Discussed the importance of glycemic control with the patient in regards to wound healing, infection, and preventing future issues. (5) End-stage renal disease (ESRD): Code(s): N18.6 - End stage renal disease Status: Chronic Assessment and Plan: Receives hemodialysis on Sunday, , and Sunday. Nephrology following. (6) Infarction of liver: Code(s): K76.3 - Infarction of liver Status: Acute Assessment and Plan: Eliquis still on hold. Okay to resume Eliquis from a surgical standpoint. (7) Splenic infarction: Code(s): D73.5 - Infarction of spleen Status: Acute Additional Plan I have discussed the patient's case and plan of care with Dr. Nunez. Subjective Subjective Date/Time Seen: 09/21/20 11:40 Post Op day: 5 (Debridement of right diabetic foot ulcer) Patient reports: no new complaints, pain is less and afebrile Interval history: Patient seen today with Dr. Nunez and the wound care nurses. She reports her right foot pain has improved. No issues with the irrigating wound VAC. Review of Systems Review of Systems: All systems reviewed & are unremarkable except as noted in HPI and below Exam Const: General: no acute distress, alert and awake Nutritional Ap
--- NOTE | 2020-09-21 13:28 | PM.IMPN ---
Progress Note: A&P Assessment and Plan (1) Diabetic foot ulcer: Code(s): E11.621 - Type 2 diabetes mellitus with foot ulcer; L97.509 - Non-pressure chronic ulcer of other part of unspecified foot with unspecified severity Status: Acute Assessment and Plan: as per diabetic stewardship patient was started on Primaxin and vancomycin. Blood and wound cultures have been taken. Dr. Root was notified and agreed to see the patient. An MRI is ordered for that right foot. 09/13/20 15:21 Patient is 70-year-old female with history of end-stage renal disease on hemodialysis, history of diabetes, had developed right foot ulcer and was seen by her jewelry sales representative started on oral antibiotic but the wound was not healing it was more pain and erythematous, MRI of the foot did not show any osteomyelitis, patient is started on imipenem and vancomycin, patient be seen by her jewelry sales representative further recommendation to follow. 09/09 today patient was seen by her jewelry sales representative and had a bedside wound debridement and cleaning patient tolerated, jewelry sales representative will take the patient to OR tomorrow for proper I and D of the foot and further recommendation to follow, the wound culture is growing Proteus mirabilis sensitivities is pending will continue imipenem and vancomycin, will continue to monitor will have a PT OT evaluate the patient and further recommendation to follow. 09/10 today patient is scheduled to be taken to OR by her jewelry sales representative for deep cleaning of the wound, patient complains right foot, denies any fever or chills, patient will have scheduled dialysis, patient wound culture is growing Proteus mirabilis and Enterococcus species, Proteus mirabilis is resistant to imipenem and sensitive to Rocephin, will stop imipenem and start the patient on Rocephin, will continue to monitor will follow-up and further recommendation to follow. 09/11 patient was taken to OR on 09/10 and had surgical I&D and irrigation of the wound, today patient feeling better however has difficulty with ambulation patient will work with physical therapy, denies any fever or chills, patient will have scheduled dialysis, patient wound culture is growing Proteus mirabilis and Enterococcus species, Proteus mirabilis is resistant to imipenem and sensitive to Rocephin, will stop imipenem and start the patient on Rocephin, will continue to monitor will follow-up and further recommendation to follow. 09/12 today patient work with physical therapist and now out of the bed and sitting in the chair, still complains of pain in her right foot, patient will be seen by jewelry sales representative tomorrow and evaluate to wound and further recommendation to follow, will CPM. 09/13 today wound team is present in the room and wound is open and antibiotic beads are visible in the wound, there is no erythema nor any drainage, wound team will place wound vac, jewelry sales representative requesting opinion of id to further stratify antibiotics management and further recommendation to follow, will be seen by Nephrology and will have scheduled dialysis, clinically stable will continue present management. 09/14 evaluated by surgery insisted further excisional debridement of her right foot ulcer and possible underlying abscess this is scheduled to be done tomorrow. Infectious Disease has been consulted and will continue antibiotic recommendation for infectious disease 09-15 plan for further excisional debridement of right foot ulcer today Andriaqumarissa is currently on hold. Infectious Disease has discontinued IV antibiotics and has placed on Levaquin oral for a month. Will keep her NPO because of cough with swallowing. Started on Reglan for history suggestive of gastroparesis. She states her symptoms are improved since the start of Reglan. Continue other current management 09/16: underwent further debridemnt today. continue antibiotics pe ID. rajeshis to winsome. contniue wound care and inpatie tHD as pe scheduld. 09/17: Doing well postsurgery vital stable. Continue
[2020-09-21 17:09] LABS: Glucose Point of Care 198 mg/dl (65-105)
[2020-09-21] MEDS: LOSARTAN POTASSIUM 100 MG TABLET PO (20:45)
[2020-09-21] MEDS: BENZONATATE 100 MG CAPSULE PO (20:49)
[2020-09-21 21:20] LABS: Glucose Point of Care 169 mg/dl (65-105)
[2020-09-22 05:56] VITALS: BP 142/60; PULSE 62; RESP 17; TEMP 36.6; O2SAT 97
[2020-09-22] MEDS: METOCLOPRAMIDE HCL INJ 10 MG/2 ML VIAL IV PUSH ×3 (05:56→21:00)
[2020-09-22 08:57] LABS: Glucose Point of Care 118 mg/dl (65-105)
[2020-09-22] MEDS: busPIRone HCL 5 MG TABLET 15 MG PO ×2 (10:10→17:30)
[2020-09-22] MEDS: guaiFENesin 12 HR 600 MG TABCR PO ×2 (10:10→20:55)
[2020-09-22] MEDS: CALCIUM ACETATE 667 MG TABLET 1334 MG PO ×3 (10:10→17:30)
[2020-09-22 10:11] VITALS: PULSE 60
[2020-09-22] MEDS: carvediloL 25 MG TABLET PO ×2 (10:11→20:54)
[2020-09-22] MEDS: PANTOPRAZOLE SODIUM IV 40 MG VIAL IV PUSH ×2 (10:13→20:55)
[2020-09-22] MEDS: ATORVASTATIN 20 MG TABLET PO (10:13)
[2020-09-22] MEDS: buPROPion HCL SR (12 HR) 150 MG TAB PO (10:13)
[2020-09-22] MEDS: levoFLOXacin 250 MG TABLET PO (10:13)
[2020-09-22] MEDS: LACTIC ACID 12% LOTION 225 BTL 1 APPLIC TOPICAL (10:13)
[2020-09-22] MEDS: allopurinoL 100 MG TABLET PO (10:14)
[2020-09-22] MEDS: amLODIPine BESYLATE 5 MG TABLET 10 MG PO (10:14)
[2020-09-22] MEDS: HYDROcodone/acetaminophen (*CRX) 5-325 MG TABLET 2 TAB PO ×3 (10:26→19:02)
[2020-09-22 12:04] LABS: Glucose Point of Care 164 mg/dl (65-105)
[2020-09-22] MEDS: APIXABAN 2.5 MG TABLET PO ×2 (13:10→20:55)
[2020-09-22] MEDS: TOLNAFTATE 1% POWDER 45 GM BTL 1 APPLIC TOPICAL ×2 (13:10→20:56)
--- NOTE | 2020-09-22 13:20 | PM.IMPN ---
Progress Note: A&P Assessment and Plan (1) Diabetic foot ulcer: Code(s): E11.621 - Type 2 diabetes mellitus with foot ulcer; L97.509 - Non-pressure chronic ulcer of other part of unspecified foot with unspecified severity Status: Acute Assessment and Plan: as per diabetic stewardship patient was started on Primaxin and vancomycin. Blood and wound cultures have been taken. Dr. Root was notified and agreed to see the patient. An MRI is ordered for that right foot. 09/13/20 15:21 Patient is 70-year-old female with history of end-stage renal disease on hemodialysis, history of diabetes, had developed right foot ulcer and was seen by her char house supervisor started on oral antibiotic but the wound was not healing it was more pain and erythematous, MRI of the foot did not show any osteomyelitis, patient is started on imipenem and vancomycin, patient be seen by her char house supervisor further recommendation to follow. 09/09 today patient was seen by her char house supervisor and had a bedside wound debridement and cleaning patient tolerated, char house supervisor will take the patient to OR tomorrow for proper I and D of the foot and further recommendation to follow, the wound culture is growing Proteus mirabilis sensitivities is pending will continue imipenem and vancomycin, will continue to monitor will have a PT OT evaluate the patient and further recommendation to follow. 09/10 today patient is scheduled to be taken to OR by her char house supervisor for deep cleaning of the wound, patient complains right foot, denies any fever or chills, patient will have scheduled dialysis, patient wound culture is growing Proteus mirabilis and Enterococcus species, Proteus mirabilis is resistant to imipenem and sensitive to Rocephin, will stop imipenem and start the patient on Rocephin, will continue to monitor will follow-up and further recommendation to follow. 09/11 patient was taken to OR on 09/10 and had surgical I&D and irrigation of the wound, today patient feeling better however has difficulty with ambulation patient will work with physical therapy, denies any fever or chills, patient will have scheduled dialysis, patient wound culture is growing Proteus mirabilis and Enterococcus species, Proteus mirabilis is resistant to imipenem and sensitive to Rocephin, will stop imipenem and start the patient on Rocephin, will continue to monitor will follow-up and further recommendation to follow. 09/12 today patient work with physical therapist and now out of the bed and sitting in the chair, still complains of pain in her right foot, patient will be seen by char house supervisor tomorrow and evaluate to wound and further recommendation to follow, will CPM. 09/13 today wound team is present in the room and wound is open and antibiotic beads are visible in the wound, there is no erythema nor any drainage, wound team will place wound vac, char house supervisor requesting opinion of id to further stratify antibiotics management and further recommendation to follow, will be seen by Nephrology and will have scheduled dialysis, clinically stable will continue present management. 09/14 evaluated by surgery insisted further excisional debridement of her right foot ulcer and possible underlying abscess this is scheduled to be done tomorrow. Infectious Disease has been consulted and will continue antibiotic recommendation for infectious disease 09-15 plan for further excisional debridement of right foot ulcer today Andriaqumarissa is currently on hold. Infectious Disease has discontinued IV antibiotics and has placed on Levaquin oral for a month. Will keep her NPO because of cough with swallowing. Started on Reglan for history suggestive of gastroparesis. She states her symptoms are improved since the start of Reglan. Continue other current management 09/16: underwent further debridemnt today. continue antibiotics pe ID. rajeshis to winsome. contniue wound care and inpatie tHD as pe scheduld. 09/17: Doing well postsurgery vital stable. Continue
--- NOTE | 2020-09-22 13:39 | PC.NURSE ---
New canister placed on wound vac.
[2020-09-22 14:00] VITALS: BP 101/50; PULSE 63; RESP 14; TEMP 36.1; O2SAT 100
[2020-09-22] MEDS: FAMOTIDINE 20 MG/2 ML VIAL IV PUSH (15:18)
[2020-09-22] MEDS: INSULIN ASPART (*BKC) 100 UNITS/ML SUB-Q (17:33)
[2020-09-22 17:34] LABS: Glucose Point of Care 210 mg/dl (65-105)
--- NOTE | 2020-09-22 18:03 | P.PNNP_ITS ---
Progress Note: A&P Assessment and Plan (1) End-stage renal disease (ESRD): Code(s): N18.6 - End stage renal disease Status: Chronic Assessment and Plan: * Will get hemodialysis tomorrow. * She is hoping for discharge tomorrow so I asked the nurses to do her 1st shift. * Volume status looks okay. (2) Diabetic foot ulcer: Code(s): E11.621 - Type 2 diabetes mellitus with foot ulcer; L97.509 - Non-pressure chronic ulcer of other part of unspecified foot with unspecified severity Status: Acute Assessment and Plan: * s/p bedside debridement * s/p formal I&D in OR on 09/10/20 (by Podiatry) and 09/16/20 (by General Surgery) * Has a wound VAC on. * on antibiotics * Infectious Disease, Podiatry and Surgery following (3) Hypertension: Qualifiers: Hypertension type: essential hypertension Qualified Code(s): I10 - Essential (primary) hypertension Code(s): I10 - Essential (primary) hypertension Status: Chronic Assessment and Plan: * blood pressure is doing pretty well. * follow trend of hemodynamics (4) Anemia: Code(s): D64.9 - Anemia, unspecified Status: Chronic Assessment and Plan: * due to ESRD, acute infection, and operative procedure * Ep[facility] HD * hemoglobin 10 today. (5) Diabetes: Code(s): E11.9 - Type 2 diabetes mellitus without complications Status: Acute Assessment and Plan: * follow accuchecks * on Lantus and SSI Subjective Date/time seen: 09/22/20 18:03 Interval history: Kelley is comfortable. She is going to get dialysis tomorrow. Breathing okay and feeling okay. Eager for discharge. Review of Systems Cardiovascular: Cardiovascular: Reports no additional cardiovascular complaints Respiratory: Respiratory: Reports no additional respiratory complaints Gastrointestinal: Gastrointestinal: Reports no additional gastrointestinal complaints Genitourinary: Genitourinary: Reports no additional female genitourinary complaints Exam Narrative: Exam Narrative: WDWN in NAD skin no rash head ncat lungs clear cor reg no rub abd BS+ nontender and soft ext no edema. Objective Data Vital Signs Vital Signs: Vital Signs - 24 hr 09/21/20 20:14 09/21/20 20:40 09/21/20 20:45 Temperature 36.1 C L Pulse Rate 63 Respiratory Rate 18 Blood Pressure 149/74 H Pulse Oximetry 91 96 96 09/22/20 05:56 09/22/20 10:11 09/22/20 14:00 Temperature 36.6 C 36.1 C L Pulse Rate 62 60 63 Respiratory Rate 17 14 Blood Pressure 142/60 H 101/50 L Pulse Oximetry 97 100 Intake/Output Intake/Output: Intake & Output 09/19/20 09/20/20 09/21/20 09/22/20 23:59 23:59 23:59 23:59 Intake Total 210 540 800 630 Output Total 25 1739 Balance 185 -5238 800 630 Meds/Results Medications: Active Medications Generic Name Dose Route Start Last Admin Trade Name Freq PRN Reason Stop Dose Admin Hydrocodone Bitart/Acetaminophen 2 tab 09/16/20 09:04 09/22/20 10:26 Hydrocodone/Acetaminophen (*Crx) 5-325 Mg Tablet PO 2 tab Q6H PRN Administration Pain Rated 7-10 Allopurinol 100 mg
--- NOTE | 2020-09-22 18:03 | PM.PNNEP ---
Progress Note: A&P Assessment and Plan (1) End-stage renal disease (ESRD): Code(s): N18.6 - End stage renal disease Status: Chronic Assessment and Plan: Will get hemodialysis tomorrow. She is hoping for discharge tomorrow so I asked the nurses to do her 1st shift. Volume status looks okay. (2) Diabetic foot ulcer: Code(s): E11.621 - Type 2 diabetes mellitus with foot ulcer; L97.509 - Non-pressure chronic ulcer of other part of unspecified foot with unspecified severity Status: Acute Assessment and Plan: s/p bedside debridement s/p formal I&D in OR on 09/10/20 (by Podiatry) and 09/16/20 (by General Surgery) Has a wound VAC on. on antibiotics Infectious Disease, Podiatry and Surgery following (3) Hypertension: Qualifiers: Hypertension type: essential hypertension Qualified Code(s): I10 - Essential (primary) hypertension Code(s): I10 - Essential (primary) hypertension Status: Chronic Assessment and Plan: blood pressure is doing pretty well. follow trend of hemodynamics (4) Anemia: Code(s): D64.9 - Anemia, unspecified Status: Chronic Assessment and Plan: due to ESRD, acute infection, and operative procedure Epogen [facility] [place] HD hemoglobin 10 today. (5) Diabetes: Code(s): E11.9 - Type 2 diabetes mellitus without complications Status: Acute Assessment and Plan: follow accuchecks on Lantus and SSI Subjective Date/time seen: 09/22/20 18:03 Interval history: Kelley is comfortable. She is going to get dialysis tomorrow. Breathing okay and feeling okay. Eager for discharge. Review of Systems Cardiovascular: Cardiovascular: Reports no additional cardiovascular complaints Respiratory: Respiratory: Reports no additional respiratory complaints Gastrointestinal: Gastrointestinal: Reports no additional gastrointestinal complaints Genitourinary: Genitourinary: Reports no additional female genitourinary complaints Exam Narrative: Exam Narrative: WDWN in NAD skin no rash head ncat lungs clear cor reg no rub abd BS+ nontender and soft ext no edema. Objective Data Vital Signs Vital Signs: Vital Signs - 24 hr 09/21/20 20:14 09/21/20 20:40 09/21/20 20:45 Temperature 36.1 C L Pulse Rate 63 Respiratory Rate 18 Blood Pressure 149/74 H Pulse Oximetry 91 96 96 09/22/20 05:56 09/22/20 10:11 09/22/20 14:00 Temperature 36.6 C 36.1 C L Pulse Rate 62 60 63 Respiratory Rate 17 14 Blood Pressure 142/60 H 101/50 L Pulse Oximetry 97 100 Intake/Output Intake/Output: Intake & Output 09/19/20 09/20/20 09/21/20 09/22/20 23:59 23:59 23:59 23:59 Intake Total 210 540 800 630 Output Total 25 2279 Balance 185 -1739 800 630 Meds/Results Medications: Active Medications Generic Name Dose Route Start Last Admin Trade Name Freq PRN Reason Stop Dose Admin Hydrocodone Bitart/Acetaminophen 2 tab 09/16/20 09:04 09/22/20 10:26 Hydrocodone/Acetaminophen (*Crx) 5-325 Mg Tablet PO 2 tab Q6H PRN Administration Pain Rated 7-10 Allopurinol 100 mg 09/08/20 08:00 09/22/20 10:14 Allopurinol 100 Mg Tablet PO 100 mg DAILY@0800 MICHELL Administration Amlodipine Besylate 10 mg 09/08/20 09:00 09/22/20 10:14 Amlodipine Besylate 5 Mg Tablet PO 10 mg DAILY MICHELL Administration Apixaban 2.5 mg 09/08/20 09:00 09/14/20 08:35 Apixaban 2.5 Mg Tablet PO 2.5 mg BID MICHELL Administration Apixaban 2.5 mg 09/22/20 10:09 09/22/20 13:10 Apixaban 2.5 Mg Tablet PO 2.5 mg Q12HR MICHELL Administration Atorvastatin Calcium 20 mg 09/08/20 09:00 09/22/20 10:13 Atorvastatin 20 Mg Tablet PO 20 mg DAILY MICHELL Administration Benzonatate 100 mg 09/12/20 09:29 09/21/20 20:49 Benzonatate 100 Mg Capsule PO 100 mg TID PRN Administration Cough Bupropion HCl 150 mg 09/08/20 09:00 09/22/20 10:13 Bupropion Hcl Sr (12 Hr) 1
[2020-09-22 20:50] VITALS: O2SAT 100
[2020-09-22] MEDS: LOSARTAN POTASSIUM 100 MG TABLET PO (20:52)
[2020-09-22 20:54] VITALS: PULSE 70
[2020-09-22] MEDS: DOCUSATE SODIUM 100 MG CAPSULE PO (20:55)
[2020-09-22] MEDS: BENZONATATE 100 MG CAPSULE PO (20:56)
[2020-09-22 21:15] LABS: Glucose Point of Care 189 mg/dl (65-105)
[2020-09-22 22:00] VITALS: BP 142/56; PULSE 59; RESP 18; TEMP 36.1; O2SAT 97
[2020-09-23] VITALS (22 sets, daily range): BP systolic 134–189; BP diastolic 44–85; PULSE 62–75; RESP 12–20; TEMP 35.6–37; O2SAT 95–98
[2020-09-23] MEDS: PROMETHAZINE HCL 25 MG/ML AMPUL 12.5 MG IV PUSH (02:24)
[2020-09-23] MEDS: METOCLOPRAMIDE HCL INJ 10 MG/2 ML VIAL IV PUSH (05:50)
[2020-09-23 06:21] LABS: Anion Gap 5 mmol/L (8-16); Blood Urea Nitrogen 25 mg/dL (7-17); Calcium 9.9 mg/dL (8.4-10.2); Carbon Dioxide 33 mmol/L (22-30); Chloride 97 mmol/L (98-107); Estimated CRCL calculation 13 ml/min; Estimated Glomerular Filt Rate 9; Glucose 156 mg/dL (65-105); Phosphorus 3.5 mg/dL (2.5-4.5); Potassium 4.6 mmol/L (3.4-5.0); Sodium 135 mmol/L (137-145)
[2020-09-23 08:43] LABS: Glucose Point of Care 142 mg/dl (65-105)
--- NOTE | 2020-09-23 09:59 | PCOTNOTE ---
Attempted to see Patient at this time this A.M. Patient out of the room for dialysis. Will try backl at a later time.
--- NOTE | 2020-09-23 10:53 | PCPTNOTE ---
Unable to see patient for PT at this time due to patient out of room for dialysis. Will check back at later time.
[2020-09-23] MEDS: FAMOTIDINE 20 MG/2 ML VIAL IV PUSH (11:37)
[2020-09-23] MEDS: EPOETIN ALFA-EPBX 10,000 UNITS/ML VIAL 10000 UNITS IV PUSH (11:46)
--- NOTE | 2020-09-23 11:58 | PM.PNGS ---
Progress Note: A&P Assessment and Plan (1) Diabetic foot ulcer: Code(s): E11.621 - Type 2 diabetes mellitus with foot ulcer; L97.509 - Non-pressure chronic ulcer of other part of unspecified foot with unspecified severity Status: Acute Assessment and Plan: She has an infected right diabetic foot ulcer that is status post bedside debridement on 09/09/20 and surgical debridement with versajet use in the OR on 09/10/20. During surgery vancomycin antibiotic beads were placed in the wound. Wound culture from surgery showed growth of proteus mirabilis. ID consulted and switched her to oral levofloxacin. Continue oral abx per ID. She was taken back to the OR by Dr. Nunez on 09/16/20 for excisional debridement and Pulsavac irrigation. Removed the irrigating wound VAC today. Will apply wet to dry dressing for potential discharge. Okay from a surgical standpoint to discharge the patient today if okay with other services. We would like a wound VAC to then be applied at the SNF and continued until followed up in the wound clinic next . Will have the wound clinic schedule the follow-up appointment with Dr. Nunez for next week. (2) Peripheral arterial disease: Code(s): I73.9 - Peripheral vascular disease, unspecified Status: Acute Assessment and Plan: ABIs this admission were unable to be obtained due to inability to occlude the right brachial artery and could not assess the left due to her upper arm fistula. There was brisk systolic upstrokes at the bilateral posterior tibial and dorsalis pedis arteries, suggesting there is no high-grade stenosis, but there could still be mild to moderate stenosis. Could contribute to poor wound healing and cause further issues despite surgical debridement if she does have some arterial stenosis. (3) Cellulitis: Code(s): L03.90 - Cellulitis, unspecified Status: Acute Assessment and Plan: Improving localized erythema. ID switched her to oral levofloxacin 250 mg Q48H from IV abx on 09/16/2020. Continue abx per ID. (4) Diabetes mellitus with hyperglycemia, with long-term current use of insulin: Qualifiers: Diabetes mellitus type: type 2 Qualified Code(s): E11.65 - Type 2 diabetes mellitus with hyperglycemia; Z79.4 - rn long term care (current) use of insulin Code(s): E11.65 - Type 2 diabetes mellitus with hyperglycemia; Z79.4 - snf (current) use of insulin Status: Acute Assessment and Plan: Last HgbA1C was 8.9 on this admission. Discussed the importance of glycemic control with the patient in regards to wound healing, infection, and preventing future issues. (5) End-stage renal disease (ESRD): Code(s): N18.6 - End stage renal disease Status: Chronic Assessment and Plan: Receives hemodialysis on Sunday, , and Sunday. Nephrology following. Getting dialysis this morning on our exam. (6) Infarction of liver: Code(s): K76.3 - Infarction of liver Status: Acute Assessment and Plan: Eliquis restarted. (7) Splenic infarction: Code(s): D73.5 - Infarction of spleen Status: Acute Additional Plan I have discussed the patient's case and plan of care with Dr. Nunez. Subjective Subjective Date/Time Seen: 09/23/20 11:58 Post Op day: 7 Patient reports: no new complaints, feels better, pain is less and afebrile Interval history: Patient seen today in dialysis with Dr. Nunez and the wound care nurse. She has no new complaints. Plans to change the wound VAC today and possible discharge to SNF. No acute events overnight. Review of Systems Review of Systems: All systems reviewed & are unremarkable except as noted in HPI and below Exam Const: General: no acute distress, alert and awake Orientation/consciousness: patient oriented x3 Skin: Other: Irrigating wound VAC removed from right foot. Some pink, healthy granulation tissue is forming. Minimal yellow debri/slough scattered in some
[2020-09-23] MEDS: HYDROcodone/acetaminophen (*CRX) 5-325 MG TABLET 2 TAB PO (12:09)
--- NOTE | 2020-09-23 12:50 | PCOTNOTE ---
Attempted to see Patient at this time. Patient still out of the room, unavailable to be seen
--- NOTE | 2020-09-23 13:32 | PC.NURSE ---
On 09/23/20, the student, [Rusty Russ ], provided care and completed [facility] documentation on this patient. I have reviewed the student's documentation and agree with the findings.
--- NOTE | 2020-09-23 13:49 | PM.DS ---
DS: Admitting Diagnosis Admitting Diagnosis Admitting Diagnosis: abscess/cellulitis of the right foot DS: Discharge Diagnosis Discharge Diagnosis (1) Diabetic foot ulcer: Onset Date: ~08/2020 Code(s): E11.621 - Type 2 diabetes mellitus with foot ulcer; L97.509 - Non-pressure chronic ulcer of other part of unspecified foot with unspecified severity Status: Acute Assessment and Plan: as per diabetic stewardship patient was started on Primaxin and vancomycin. Blood and wound cultures have been taken. Dr. Root was notified and agreed to see the patient. An MRI is ordered for that right foot. 09/13/20 15:21 Patient is 70-year-old female with history of end-stage renal disease on hemodialysis, history of diabetes, had developed right foot ulcer and was seen by her coil wrapper started on oral antibiotic but the wound was not healing it was more pain and erythematous, MRI of the foot did not show any osteomyelitis, patient is started on imipenem and vancomycin, patient be seen by her coil wrapper further recommendation to follow. 09/09 today patient was seen by her coil wrapper and had a bedside wound debridement and cleaning patient tolerated, coil wrapper will take the patient to OR tomorrow for proper I and D of the foot and further recommendation to follow, the wound culture is growing Proteus mirabilis sensitivities is pending will continue imipenem and vancomycin, will continue to monitor will have a PT OT evaluate the patient and further recommendation to follow. 09/10 today patient is scheduled to be taken to OR by her coil wrapper for deep cleaning of the wound, patient complains right foot, denies any fever or chills, patient will have scheduled dialysis, patient wound culture is growing Proteus mirabilis and Enterococcus species, Proteus mirabilis is resistant to imipenem and sensitive to Rocephin, will stop imipenem and start the patient on Rocephin, will continue to monitor will follow-up and further recommendation to follow. 09/11 patient was taken to OR on 09/10 and had surgical I&D and irrigation of the wound, today patient feeling better however has difficulty with ambulation patient will work with physical therapy, denies any fever or chills, patient will have scheduled dialysis, patient wound culture is growing Proteus mirabilis and Enterococcus species, Proteus mirabilis is resistant to imipenem and sensitive to Rocephin, will stop imipenem and start the patient on Rocephin, will continue to monitor will follow-up and further recommendation to follow. 09/12 today patient work with physical therapist and now out of the bed and sitting in the chair, still complains of pain in her right foot, patient will be seen by coil wrapper tomorrow and evaluate to wound and further recommendation to follow, will CPM. 09/13 today wound team is present in the room and wound is open and antibiotic beads are visible in the wound, there is no erythema nor any drainage, wound team will place wound vac, coil wrapper requesting opinion of id to further stratify antibiotics management and further recommendation to follow, will be seen by Nephrology and will have scheduled dialysis, clinically stable will continue present management. 09/14 evaluated by surgery insisted further excisional debridement of her right foot ulcer and possible underlying abscess this is scheduled to be done tomorrow. Infectious Disease has been consulted and will continue antibiotic recommendation for infectious disease 09-15 plan for further excisional debridement of right foot ulcer today Eliquis is currently on hold. Infectious Disease has discontinued IV antibiotics and has placed on Levaquin oral for a month. Will keep her NPO because of cough with swallowing. Started on Reglan for history suggestive of gastroparesis. She states her symptoms are improved since the start of Reglan. Continue other current management 09/16: underwent further debridemnt today. continue antib
[2020-09-23 14:04] LABS: Glucose Point of Care 110 mg/dl (65-105)
--- NOTE | 2020-09-23 14:19 | PCPTNOTE ---
Patient refused treatment this session due to expected discharge.
[2020-09-23] MEDS: allopurinoL 100 MG TABLET PO (14:38)
[2020-09-23] MEDS: buPROPion HCL SR (12 HR) 150 MG TAB PO (14:39)
[2020-09-23] MEDS: busPIRone HCL 5 MG TABLET 15 MG PO (14:39)
[2020-09-23] MEDS: ATORVASTATIN 20 MG TABLET PO (14:39)
[2020-09-23] MEDS: amLODIPine BESYLATE 5 MG TABLET 10 MG PO (14:39)
[2020-09-23] MEDS: APIXABAN 2.5 MG TABLET PO (14:39)
[2020-09-23] MEDS: CALCIUM ACETATE 667 MG TABLET 1334 MG PO (14:40)
[2020-09-23] MEDS: carvediloL 25 MG TABLET PO (14:40)
[2020-09-23] MEDS: DOCUSATE SODIUM 100 MG CAPSULE PO (14:41)
[2020-09-23] MEDS: guaiFENesin 12 HR 600 MG TABCR PO (14:41)
--- NOTE | 2020-09-23 14:44 | PM.PNNEP ---
Progress Note: A&P Assessment and Plan (1) End-stage renal disease (ESRD): Code(s): N18.6 - End stage renal disease Status: Chronic Assessment and Plan: getting dialysis now. Blood pressure is doing well. We Are removing some fluid. (2) Diabetic foot ulcer: Code(s): E11.621 - Type 2 diabetes mellitus with foot ulcer; L97.509 - Non-pressure chronic ulcer of other part of unspecified foot with unspecified severity Status: Acute Assessment and Plan: s/p bedside debridement s/p formal I&D in OR on 09/10/20 (by Podiatry) and 09/16/20 (by General Surgery) Has a wound VAC on. on antibiotics Infectious Disease, Podiatry and Surgery following home today apparently. Okay from the kidney standpoint (3) Hypertension: Qualifiers: Hypertension type: essential hypertension Qualified Code(s): I10 - Essential (primary) hypertension Code(s): I10 - Essential (primary) hypertension Status: Chronic Assessment and Plan: blood pressure is doing pretty well. follow trend of hemodynamics (4) Anemia: Code(s): D64.9 - Anemia, unspecified Status: Chronic Assessment and Plan: due to ESRD, acute infection, and operative procedure [facility] HD hemoglobin 10 today. (5) Diabetes: Code(s): E11.9 - Type 2 diabetes mellitus without complications Status: Acute Assessment and Plan: follow accuchecks on Lantus and SSI Subjective Date/time seen: 09/23/20 14:44 Interval history: Kelley is comfortable. she is on dialysis and tolerating it well. She was seen at 12:45 p.m. Breathing okay and feeling okay. Eager for discharge. Exam Narrative: Exam Narrative: WDWN in NAD skin no rash head ncat lungs clear cor reg no rub or gallop abd BS+ nontender and soft ext no edema. Objective Data Vital Signs Vital Signs: Vital Signs - 24 hr 09/22/20 20:50 09/22/20 20:54 09/22/20 22:00 Temperature 36.1 C L Pulse Rate 70 59 L Respiratory Rate 18 Blood Pressure 142/56 H Pulse Oximetry 100 97 09/23/20 02:35 09/23/20 06:00 09/23/20 08:00 Temperature 36.4 C L Pulse Rate 63 Respiratory Rate 18 Blood Pressure 137/44 L Pulse Oximetry 97 95 97 09/23/20 08:30 09/23/20 08:41 09/23/20 10:00 Temperature 35.6 C L 36.4 C L Pulse Rate 64 63 Respiratory Rate 12 18 Blood Pressure 134/55 L 158/72 H Pulse Oximetry 97 98 09/23/20 10:15 09/23/20 10:30 09/23/20 10:45 Temperature Pulse Rate 64 64 66 Respiratory Rate Blood Pressure 157/71 H 170/71 H 172/73 H Pulse Oximetry 09/23/20 11:00 09/23/20 11:15 09/23/20 11:30 Temperature Pulse Rate 64 68 66 Respiratory Rate Blood Pressure 172/69 H 169/66 H 189/85 H Pulse Oximetry 09/23/20 11:45 09/23/20 12:00 09/23/20 12:15 Temperature Pulse Rate 69 67 69 Respiratory Rate Blood Pressure 186/66 H 159/65 H 181/67 H Pulse Oximetry 09/23/20 12:30 09/23/20 12:50 09/23/20 13:03 Temperature Pulse Rate 64 64 62 Respiratory Rate Blood Pressure 167/68 H 177/64 H 170/65 H Pulse Oximetry 09/23/20 13:15 09/23/20 13:35 09/23/20 14:40 Temperature 36.4 C Pulse Rate 69 75 72 Respiratory Rate 18 Blood Pressure 142/49 H 136/63 Pulse Oximetry Intake/Output Intake/Output: Intake & Output 09/20/20 09/21/20 09/22/20 09/23/20 23:59 23:59 23:59 23:59 Intake Total 540 800 630 490 Output Total 2279 1999 [place] -[id number] 800 421 -3839 Meds/Results Medications: Active Medications Generic Name Dose Route Start Last Admin Trade Name Freq PRN Reason Stop Dose Admin Hydrocodone Bitart/Acetaminophen 2 tab 09/16/20 09:04 09/23/20 12:09 Hydrocodone/Acetaminophen (*Crx) 5-325 Mg Tablet PO 2 tab Q6H PRN Administration Pain Rated 7-10 Allopurinol 100 mg 09/08/20 08:00 09/23/20 14:38 Allopurinol 100 Mg Tablet PO 100 mg DAILY@0800 MICHELL Administration Am
[2020-09-23 19:42] LABS: Glucose Point of Care 171 mg/dl (65-105)
--- NOTE | 2020-09-23 22:16 | PC.NURSE ---
Spoke with pharmacy about retiming nightime dose of medications that patient received late this afternoon due to dialysis. Pharmacy to address.
== END 2020-09-23 23:00 | DRG 623 ==
LOC: ANHED 16:36 → ANH3MED 19:16
PROVIDERS: Emergency Medicine Emergency Medical Services; Internal Medicine; Internal Medicine Nephrology; Nurse Practitioner; Podiatrist Foot & Ankle Surgery; Surgery; Admitting Provider Emergency Medicine; Emergency Provider Emergency Medicine; PCP Internal Medicine; Visit Provider Family Medicine
PROC: 0JDQ0ZZ Extraction of Right Foot Subcutaneous Tissue and Fascia, Open Approach (ICD-10-PCS; principal; 2020-09-10 13:00)
PROC: 0JBQ0ZZ Excision of Right Foot Subcutaneous Tissue and Fascia, Open Approach (ICD-10-PCS; principal; 2020-09-16 07:30)
DX: E11.621 Type 2 diabetes mellitus with foot ulcer (principal); I69.354 Hemiplegia and hemiparesis following cerebral infarction affecting left non-dominant side; Z68.42 Body mass index [BMI] 45.0-49.9, adult; I12.0 Hypertensive chronic kidney disease with stage 5 chronic kidney disease or end stage renal disease; L02.611 Cutaneous abscess of right foot; Z16.19 Resistance to other specified beta lactam antibiotics; E87.1 Hypo-osmolality and hyponatremia; E11.628 Type 2 diabetes mellitus with other skin complications; L97.513 Non-pressure chronic ulcer of other part of right foot with necrosis of muscle; B96.4 Proteus (mirabilis) (morganii) as the cause of diseases classified elsewhere; B95.2 Enterococcus as the cause of diseases classified elsewhere; B96.89 Other specified bacterial agents as the cause of diseases classified elsewhere; N18.6 End stage renal disease; E11.22 Type 2 diabetes mellitus with diabetic chronic kidney disease; F41.8 Other specified anxiety disorders; K21.9 Gastro-esophageal reflux disease without esophagitis; E78.5 Hyperlipidemia, unspecified; E66.01 Morbid (severe) obesity due to excess calories; E11.42 Type 2 diabetes mellitus with diabetic polyneuropathy; E11.43 Type 2 diabetes mellitus with diabetic autonomic (poly)neuropathy; K31.84 Gastroparesis; D63.1 Anemia in chronic kidney disease; E11.65 Type 2 diabetes mellitus with hyperglycemia; E11.21 Type 2 diabetes mellitus with diabetic nephropathy; E11.319 Type 2 diabetes mellitus with unspecified diabetic retinopathy without macular edema; I87.2 Venous insufficiency (chronic) (peripheral); E04.1 Nontoxic single thyroid nodule; E11.51 Type 2 diabetes mellitus with diabetic peripheral angiopathy without gangrene; I73.9 Peripheral vascular disease, unspecified; Z86.718 Personal history of other venous thrombosis and embolism; Z99.2 Dependence on renal dialysis; Z79.01 Long term (current) use of anticoagulants; Z79.4 Long term (current) use of insulin; Z98.42 Cataract extraction status, left eye; Z98.41 Cataract extraction status, right eye; Z90.710 Acquired absence of both cervix and uterus; Z90.722 Acquired absence of ovaries, bilateral; H54.8 Legal blindness, as defined in USA
CPT/HCPCS: 36415; 73630; 73718; 80048; 80053; 80069; 80202; 82010; 82565; 82948; 83036; 83735; 84100; 85025; 85027; 85652; 86140; 86706; 86850; 86900; 86901; 87040; 87070; 87075; 87077; 87086; 87186; 87205; 87340; 88304; 92610; 93922; 93970; 96365; 96366; 96367; 96375; 97110; 97161; 97165; 97530; 97535; 99285; A9270; C1713; C9113; G0257; J0696; J0743; J1815; J2250; J2270; J2550; J2704; J2765; J3010; J3370; J7030; J7040; Q5106

== ENCOUNTER 2020-10-21 10:16 | Inpatient (IN) | payer MEDICARE, MEDICAID, SELFPAY ==
[2020-10-21] VITALS (19 sets, daily range): BP systolic 129–162; BP diastolic 45–72; PULSE 67–76; RESP 18–26; TEMP 36.2–37; O2SAT 92–98; BMI 50.2
--- NOTE | ~2020-10-21 | XR_ITS ---
EXAMINATION: XR knee RT min 4V DATE: 10/21/2020 10:41 INDICATION: Right knee pain post fall TECHNIQUE: Anteroposterior, 2 oblique and crosstable lateral views of the right knee were obtained COMPARISON: None. FINDINGS: Genu varus which appears to result from advanced osteoarthritis in the medial compartment with remode ling of the medial tibial plateau. No fracture. Additional at least mild osteoarthritis in the latera l and patellofemoral compartments which could be underestimated on nonweightbearing imaging. No right knee joint effusion. Extensive dense calcific lesions seen from the femoral artery through the anter ior tibial, posterior tibial and peroneal arteries at the calf. Diffuse subcutaneous edema about the right knee. IMPRESSION: 1. No right knee joint effusion or acute osseous abnormality. 2. Tricompartmental osteoarthritis, advanced in the medial compartment of the right knee. Reviewed, dictated and finalized at location A. IMPRESSION: 1. No right knee joint effusion or acute osseous abnormality. 2. Tricompartmental osteoarthritis, advanced in the medial compartment of the r ight knee.
--- NOTE | ~2020-10-21 | XR_ITS ---
EXAMINATION: XR foot RT min 3V DATE: 10/25/2020 13:32 INDICATION: Right foot osteomyelitis. TECHNIQUE: 5 views of right foot were obtained. COMPARISON: Right foot radiograph 09/07/2020, MRI 09/08/2020 FINDINGS: Bone alignment is normal. There is an old fracture of neck of fourth metatarsal. No acute f racture. There is diffuse osteopenia. There is an ulcer at the plantar aspect of the foot with erosio n of the adjacent base of the fifth metatarsal, consistent with osteomyelitis. There is mild osteoart hritis of first metatarsophalangeal joint. There is an enthesophyte at plantar aspect of calcaneal tu berosity. IMPRESSION: 1. Osteomyelitis involving base of fifth metatarsal. Reviewed, dictated and finalized at location A.
--- NOTE | ~2020-10-21 | XR_ITS ---
EXAMINATION: XR chest 2V DATE: 10/21/2020 10:41 INDICATION: Weakness, fall TECHNIQUE: Frontal and lateral views of the chest are obtained COMPARISON: 07/04/2019 FINDINGS: The lungs are free of acute opacities. There is no pleural effusion or pneumothorax. Cardio megaly is noted. There is mild thoracic spondylosis. IMPRESSION: 1. Cardiomegaly. Reviewed, dictated and finalized at location A. IMPRESSION: 1. Cardiomegaly.
--- NOTE | 2020-10-21 10:21 | ECG_ITS ---
Measurements Intervals [place] Rate: 74 P: 33 DE: 193 QRS: -10 QRSD: 152 T: 87 QT: 444 QTc: 493 Interpretive Statements SINUS RHYTHM LEFT BUNDLE BRANCH BLOCK BASELINE ARTIFACT- II, V3-V6 ABNORMAL ECG Electronically Signed On 10-21-2020 11:53:10 CDT by Kaushik Valencia D.O.
--- NOTE | 2020-10-21 10:21 | PC.NURSE ---
patient has wound vac to right foot that she gets treatment for every two weeks.
[2020-10-21 10:33] LABS: Hematocrit 29.6 % (37.0-47.0); Hemoglobin 9.5 g/dL (12.0-15.0); Mean Corpuscular HGB Conc 32.1 g/dl (32-36); Mean Corpuscular Hemoglobin 32.4 pg (26-34); Mean Platelet Volume 10.4 fl (7.4-10.4); Platelet Count Result 266 k/mm3 (150-375); Red Blood Count 2.93 M/mm3 (4.2-5.4); Red Cell Distribution Width 16.3 % (11.5-14.5); White Blood Count 15.5 K/mm3 (4.5-10.0)
--- NOTE | 2020-10-21 10:41 | ED.WEAKNESS ---
HPI - Weakness General Chief complaint: Weakness Stated complaint: WEAKNESS/MISSED DIALYSIS X2 Source: RN notes reviewed History of Present Illness HPI Narrative: Patient presents emergency department from home for weakness. Patient states that she is a dialysis patient who has dialysis Tuesdays and and is followed by Dr. Rodríguez. She states because of transportation issues she has missed her last 2 dialysis appointments and her last dialysis was this past Sunday she states that over the past 2 to 3 weeks she has gained over 40 pounds of fluid retention and that it been noticed by dialysis last week states she has been progressively more weak and last night she fell striking her right knee. States she has had pain in the right anterior knee she also notes that she currently has a wound VAC to a wound in her right heel that is followed by Dr. Nunez wound care and was just changed yesterday she denies any fevers or chills chest pain abdominal pain nausea vomiting. She states she has been feeling shortness of breath Related Data Home Medications Medication Instructions Recorded Confirmed bupropion HCl [Wellbutrin SR] 150 mg PO DAILY 05/30/19 10/21/20 calcium acetate(phosphat bind) 667 mg PO TID 05/30/19 10/21/20 insulin lispro [Humalog U-100 0 sliding scale dose SUBCUT TID 05/30/19 09/30/20 Insulin] Tresiba U-100 Insulin 48 unit SUBCUT HS 09/07/20 09/30/20 amlodipine 10 mg PO DAILY 09/07/20 10/21/20 atorvastatin 20 mg PO DAILY 09/07/20 10/21/20 buspirone 15 mg PO BID 09/07/20 10/21/20 allopurinol 100 mg PO DAILY 10/21/20 10/21/20 carvedilol 25 mg PO BID 10/21/20 10/21/20 Allergies Allergy/AdvReac Type Severity Reaction Status Date / Time No Known Allergies Allergy Mild Verified 10/21/20 10:21 Review of Systems Review of Systems: Gen.: Denies fevers or chills ENT: Denies congestion Respiratory: Denies shortness of breath or cough CV: Denies chest pain or palpitations GI: Denies abdominal pain nausea, emesis or diarrhea ports chronic renal failure with missed dialysis Musculoskeletal: Reports right knee pain Neuro: Reports weakness Skin: Denies rash Except as documented, all other systems reviewed and negative [facility] Past Medical History Medical History Anxiety and depression Arthritis Benign thyroid cyst Evaluated by ultrasound a couple of years ago per patient report. Cerebrovascular accident Due to embolic event following a shoulder fracture 2015 with chronic mild left-sided weakness. Chronic anemia Chronic venous stasis dermatitis of both lower extremities Diabetic gastroparesis Diabetic neuropathy Diabetic retinopathy of both eyes End-stage renal disease on hemodialysis Previously on peritoneal dialysis. Gastroesophageal reflux disease Gout Grade II diastolic dysfunction Noted on echo on 07/04/2019. EF 55-60%. Hyperlipidemia Hypertension (Unknown) Infarction of liver (07/07/19) Insulin dependent type 2 diabetes mellitus A1c was 8.9% on 09/08/2020. Moderate pulmonary hypertension Noted on echo on 07/04/2019 with estimated pulmonary arterial systolic pressure on 53 mmHg. Morbid obesity Osteoporosis Retinal detachment Shingles Splenic infarct (07/07/19) Surgical History Surgical History History of bilateral cataract extraction (2009) History of total hysterectomy with bilateral salpingo-oophorectomy (BSO) For benign ovarian mass. Proliferative diabetic retinopathy with history of surgery Status post glaucoma surgery Surgically constructed arteriovenous fistula (2015) Family History Family History Sibling Family history of alcoholism Mother Metastatic colon cancer in female Father Cancer Of the neck due to chemical exposure Son Heroin overdose Her youngest son Motor vehicle collision
[2020-10-21 10:53] LABS: Band Neutrophils Percent 2 % (0-6); Eosinophils Absolute Manual 0.31 K/mm3 (0.02-0.5); Eosinophils Percent Manual 2 % (0-4); Hypochromasia 1+ (NORMAL); Lymphocytes Absolute Manual 0.15 K/mm3 (1.1-4.5); Monocytes Absolute Manual 1.08 K/mm3 (0.1-0.90); Monocytes Percent Manual 7 % (3-9); Neutrophils Absolute Manual 13.95 K/mm3 (1.7-7.2); Neutrophils Percent Manual 88 % (46-73); Platelet Estimate Adequate (Adequate); Total Cells Counted 100
[2020-10-21 10:55] LABS: Alanine Aminotransferase 26 U/L (4-35); Albumin Level 3.5 g/dL (3.5-5.1); Alkaline Phosphatase 217 U/L (38-126); Anion Gap 5 mmol/L (8-16); Aspartate Amino Transferase 45 U/L (14-36); Bilirubin,Total 2.2 mg/dL (0.2-1.3); Blood Urea Nitrogen 58 mg/dL (7-17); Calcium 8.9 mg/dL (8.4-10.2); Carbon Dioxide 27 mmol/L (22-30); Chloride 93 mmol/L (98-107); Estimated CRCL calculation 11 ml/min; Estimated Glomerular Filt Rate 7; Glucose 166 mg/dL (65-110); Potassium 5.8 mmol/L (3.4-5.0); Sodium 125 mmol/L (137-145)
--- NOTE | 2020-10-21 10:56 | PC.NURSE ---
patient reports that she lives alone and uses a wheelchair and assist devices to walk around.
--- NOTE | 2020-10-21 11:23 | PC.NURSE ---
patient paced on 2L oxygen due to patient's oxygen lowering to 88% when patient is sleeping in room. EDP aware at this time.
--- NOTE | 2020-10-21 12:29 | PC.NURSE ---
patient reports that she does not produce urine
[2020-10-21] MEDS: HYDROcodone/acetaminophen (*CRX) 5-325 MG TABLET 1 TAB PO (12:45)
--- NOTE | 2020-10-21 12:45 | PM.IMHP ---
H&P: HPI History of Present Illness Date/Time: 10/21/20 12:45 Chief Complaint: Missed dialysis. Narrative: This is a 70-year-old female with end stage renal disease on hemodialysis, insulin dependent diabetes, hypertension, chronic anemia, and several other comorbidities who presented to the emergency department earlier today via EMS with the chief complaint of missed dialysis. She is scheduled for dialysis on Sunday, , and Saturdays but she occasionally has issues with her transport bus not showing up to take her to dialysis. In fact she missed her treatment on Sunday and today her ride once again did not show up and thus she came in here for dialysis. She tells me that she has gained 40 lb in water weight in the past week since her last dialysis and she has been feeling quite weak. Last evening when she went to go to the bathroom ?my right knee gave out? and she nearly fell in the bathroom but was able to stabilize herself though that apparently put quite a strain on her right knee. She is wondering if she may have a urinary tract infection as she has been having difficulties urinating (although she does not urinary very often) and reports dysuria for the last week or so. Additionally she currently is being treated for a right diabetic foot wound with a wound VAC and is followed by Dr. Nunez for that, I believe she recently saw him within the last several days. She denies fever, chills, sweats, chest pain, pleuritic pain, shortness of breath, nausea, vomiting, and diarrhea. Review of Systems Review of Systems: Twelve systems were reviewed with pertinent positives and negatives as per HPI. No syncope or near syncope. She has not had any significant episodes of hypoglycemia. No blurry vision, polydipsia, or polyuria. No focal weakness or paresthesias. No fever, chills, or sweats. No recent cold or flu symptoms. No sick contacts. Except as documented, all other systems were reviewed and are negative. [facility] Past Medical History Medical History Anxiety and depression Arthritis Benign thyroid cyst Evaluated by ultrasound a couple of years ago per patient report. Cerebrovascular accident Due to embolic event following a shoulder fracture 2016 with chronic mild left-sided weakness. Chronic anemia Chronic venous stasis dermatitis of both lower extremities Diabetic gastroparesis Diabetic neuropathy Diabetic retinopathy of both eyes End-stage renal disease on hemodialysis Previously on peritoneal dialysis. Gastroesophageal reflux disease Gout Grade II diastolic dysfunction Noted on echo on 07/04/2019. EF 55-60%. Hyperkalemia Hyperlipidemia Hypertension (Unknown) Infarction of liver (07/07/19) Insulin dependent type 2 diabetes mellitus A1c was 8.9% on 09/08/2020. Moderate pulmonary hypertension Noted on echo on 07/04/2019 with estimated pulmonary arterial systolic pressure on 53 mmHg. Morbid obesity Osteoporosis Retinal detachment Right knee pain Shingles Splenic infarct (07/07/19) Surgical History Surgical History History of bilateral cataract extraction (2009) History of total hysterectomy with bilateral salpingo-oophorectomy (BSO) For benign ovarian mass. Proliferative diabetic retinopathy with history of surgery Status post glaucoma surgery Surgically constructed arteriovenous fistula (2015) Family History Family History Sibling Family history of alcoholism Mother Metastatic colon cancer in female Father Cancer Of the neck due to chemical exposure Son Heroin overdose Her youngest son Motor vehicle collision Her 2nd youngest son Other Hypertension Social History Social History (Updated 10/21/20 @ 21:53 by Alma Quinn PA-C) Social History: Surrogate decision maker: Satya Rodriguez, son. Code status: F
--- NOTE | 2020-10-21 14:05 | PM.CNNEP ---
Assessment and Plan Assessment and plan (1) End-stage renal disease on hemodialysis: Code(s): N18.6 - End stage renal disease; Z99.2 - Dependence on renal dialysis Status: Acute Assessment and Plan: Kelley has end-stage renal disease. She is on dialysis 3 times a week on Tuesdays and Saturdays. The patient missed on Sunday. She comes in now with mild volume overload and hyperkalemia. The patient is not oxygen she does not feel short of breath. Her chest x-ray did show some fluid however. We will remove this with dialysis. The potassium was a little bit high. She was given insulin and glucose. We will dialyze her against a 2 K bath. (2) Hyperkalemia: Code(s): E87.5 - Hyperkalemia Status: Acute Assessment and Plan: Most likely because she missed dialysis. She was given insulin and glucose. We will dialyze her in a few minutes. (3) Generalized weakness: Code(s): R53.1 - Weakness Status: Acute Assessment and Plan: The patient is possibly week because of the potassium. We discussed how dangerous it is to skip treatments. She did try to makeup however. 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 Rodríguez, peripheral vascular disease status post cerebrovascular accident, splenic infarct, liver infarct, arthritis, diabetes, GERD, gout, hypertension, hyperlipidemia, diastolic dysfunction, pulmonary hypertension. The patient said that she was doing fine on Sunday and went to dialysis and did well. Sunday and Sunday she did fine Sunday the bus did not pick her up to for dialysis. She called the dialysis unit and they tried to get transportation for yesterday but failed. The patient started feeling poorly last night and then this morning she fell because her right leg collapse from underneath her. They called 911. They brought her back to her bedroom. This morning she called the dialysis unit and she was in severe pain when a right knee so they told her to go to the ER so she did. The emergency room evaluated her. She is mildly volume overloaded but not short of breath or hypoxic. She has no chest pain, nausea, vomiting. diarrhea. Her potassium was 5.8. She is being admitted. The patient says that she hardly ever misses any treatments at all. Review of Systems Constitutional: Constitutional: Reports no additional constitutional complaints Eyes: Eyes: Reports no additional eye complaints ENT: Reports system reviewed and no additional complaints, except as documented Cardiovascular: Cardiovascular: Reports no additional cardiovascular complaints Respiratory: Respiratory: Reports no additional respiratory complaints Gastrointestinal: Gastrointestinal: Reports no additional gastrointestinal complaints Genitourinary: Genitourinary: Reports no additional female genitourinary complaints Musculoskeletal: Musculoskeletal: Reports no additional musculoskeletal complaints Integumentary/Breasts: Skin/Breast: Reports system reviewed and no additional complaints, except as docu Neurologic: Reports system reviewed and no additional complaints, except as documented Psychiatric: Psychiatric: o
[2020-10-21 14:32] LABS: Hepatitis B Surface Antigen Negative (Negative)
--- NOTE | 2020-10-21 14:39 | PC.NURSE ---
This patient, Kelley Rodriguez, was admitted to IMU Room 206-02. Patient/family oriented to hospital policies and general routines including ID bracelet, bed and alarms, visiting hours, pain management, procedures, bathroom and other care routines, personal items, smoking policy, room service/diet, and visiting hours. Information on how to activate the Rapid Response Team has been discussed. Patient/Family are encouraged to report perceived risks to care and to ask questions if they do not understand what they are told or what they should do.
[2020-10-21] MEDS: EPOETIN ALFA-EPBX 10,000 UNITS/ML VIAL 10000 UNITS IV PUSH (15:00)
[2020-10-21 16:03] LABS: Hepatitis B Surface Anti Res Indeterminate
[2020-10-21 19:35] LABS: Add Urine Microscopic? YES; Appearance Urine Cloudy (Clear); Bacteria Urine Trace /hpf; Bilirubin Urine Negative (Negative); Blood Urine 1+ (Negative); Color Urine Amber (Yellow); Glucose Urine UA Negative (Negative); Ketones Urine Negative (Negative); Leukocyte Esterase Ur 3+ LEU/UL (Negative); Nitrate Urine Negative (Negative); Protein Urine 3+ mg/dL (Negative); Squamous Epithelial Cell Urine Rare /hpf (Few); WBC Clumps Urine Present /HPF; WBC Urine >75 /hpf
[2020-10-21 19:56] LABS: Anion Gap 9 mmol/L (8-16); Blood Urea Nitrogen 28 mg/dL (7-17); Calcium 8.5 mg/dL (8.4-10.2); Carbon Dioxide 29 mmol/L (22-30); Chloride 92 mmol/L (98-107); Estimated CRCL calculation 17 ml/min; Estimated Glomerular Filt Rate 13; Glucose 125 mg/dL (65-110); Potassium 4.2 mmol/L (3.4-5.0); Sodium 130 mmol/L (137-145)
[2020-10-21 21:16] LABS: Glucose Point of Care 160 mg/dl (65-105)
[2020-10-21 21:21] LABS: Hemoglobin A1C 6.6 % (<5.7)
[2020-10-22] VITALS (15 sets, daily range): BP systolic 111–147; BP diastolic 35–73; PULSE 60–80; RESP 18–22; TEMP 36.1–37.3; O2SAT 91–98; BMI 48.6
[2020-10-22] MEDS: carvediloL 25 MG TABLET PO ×3 (00:37→20:46)
[2020-10-22 06:52] LABS: Basophils Percent Auto 0.2 % (0.2-1.2); Eosinophils Absolute Auto 0.1 K/mm3 (0-0.3); Eosinophils Percent Auto 0.5 % (0-4.4); Hematocrit 29.5 % (37.0-47.0); Hemoglobin 9.6 g/dL (12.0-15.0); Immature Granulocyte Percent A 0.7 % (0-0.5); Lymphocytes Absolute Auto 0.29 K/mm3 (0.9-3.2); Mean Corpuscular HGB Conc 32.5 g/dl (32-36); Mean Corpuscular Hemoglobin 32.7 pg (26-34); Mean Corpuscular Volume 100.3 fl (80-100); Mean Platelet Volume 10.6 fl (7.4-10.4); Monocytes Absolute Auto 0.9 K/mm3 (0.1-0.6); Monocytes Percent Auto 6.1 % (2.6-8.5); Neutrophils Percent Auto 90.5 % (45.5-73.1); Platelet Count Result 291 k/mm3 (150-375); Red Blood Count 2.94 M/mm3 (4.2-5.4); Red Cell Distribution Width 16.6 % (11.5-14.5); White Blood Count 14.4 K/mm3 (4.5-10.0)
[2020-10-22 07:02] LABS: Alanine Aminotransferase 22 U/L (4-35); Alkaline Phosphatase 213 U/L (38-126); Anion Gap 10 mmol/L (8-16); Aspartate Amino Transferase 28 U/L (14-36); Bilirubin,Total 2.1 mg/dL (0.2-1.3); Blood Urea Nitrogen 31 mg/dL (7-17); Calcium 8.7 mg/dL (8.4-10.2); Carbon Dioxide 26 mmol/L (22-30); Chloride 95 mmol/L (98-107); Estimated CRCL calculation 15 ml/min; Estimated Glomerular Filt Rate 11; Glucose 153 mg/dL (65-110); Lipase 14 U/L (23-300); Phosphorus 4.3 mg/dL (2.5-4.5); Potassium 4.8 mmol/L (3.4-5.0); Sodium 131 mmol/L (137-145)
[2020-10-22 08:50] LABS: Glucose Point of Care 160 mg/dl (65-105)
[2020-10-22 09:22] LABS: Hepatitis B Surface Antigen Negative (Negative)
[2020-10-22 09:29] LABS: HAV RESULT Negative (Negative); Hepatitis B Core IgM Result Negative (Negative)
[2020-10-22] MEDS: amLODIPine BESYLATE 5 MG TABLET 10 MG PO (09:40)
[2020-10-22] MEDS: CALCIUM ACETATE 667 MG TABLET PO ×3 (09:40→18:10)
[2020-10-22] MEDS: APIXABAN 2.5 MG TABLET PO ×2 (09:40→18:10)
[2020-10-22] MEDS: ATORVASTATIN 20 MG TABLET PO (09:40)
[2020-10-22] MEDS: busPIRone HCL 5 MG TABLET 15 MG PO ×2 (09:40→18:10)
[2020-10-22] MEDS: allopurinoL 100 MG TABLET PO (09:40)
[2020-10-22] MEDS: buPROPion HCL SR (12 HR) 150 MG TAB PO (09:40)
[2020-10-22 09:42] LABS: Hepatitis C Virus Antibody Negative (Negative)
--- NOTE | 2020-10-22 10:14 | PM.PNNEP ---
Progress Note: A&P Assessment and Plan (1) End-stage renal disease on hemodialysis: Code(s): N18.6 - End stage renal disease; Z99.2 - Dependence on renal dialysis Status: Acute Assessment and Plan: Kelley has end-stage renal disease. She is on dialysis 3 times a week on Tuesdays and Saturdays. dialysis due tomorrow. 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 No chest pain or shortness of breath. Due for dialysis tomorrow Review of Systems Cardiovascular: Cardiovascular: Reports no additional cardiovascular complaints Respiratory: Respiratory: Reports no additional respiratory complaints Gastrointestinal: Gastrointestinal: Reports no additional gastrointestinal complaints Genitourinary: Genitourinary: Reports no additional female genitourinary complaints Exam Narrative: WDWN in NAD skin no rash head ncat lungs clear cor reg no rub abd BS+ nontender and soft ext no edema. Objective Data Vital Signs Vital Signs: Vital Signs - 24 hr 10/21/20 10:20 10/21/20 11:24 10/21/20 12:33 Temperature Pulse Rate 67 74 76 Respiratory Rate 26 H 26 H Blood Pressure 155/65 H 157/71 H Pulse Oximetry 96 98 10/21/20 13:50 10/21/20 14:00 10/21/20 14:15 Temperature 36.8 C Pulse Rate 70 69 68 Respiratory Rate 18 Blood Pressure 138/72 136/67 134/64 Pulse Oximetry 10/21/20 15:00 10/21/20 15:30 10/21/20 16:00 Temperature 36.9 C Pulse Rate 70 69 71 Respiratory Rate 19 Blood Pressure 129/60 141/64 H 146/57 H Pulse Oximetry 96 10/21/20 16:30 10/21/20 17:00 10/21/20 17:15 Temperature Pulse Rate 67 69 69 Respiratory Rate Blood Pressure 147/63 H 147/66 H 153/70 H Pulse Oximetry 10/21/20 17:30 10/21/20 17:49 10/21/20 18:00 Temperature 36.7 C Pulse Rate 68 70 71 Respiratory Rate 20 Blood Pressure 147/66 H 150/61 H Pulse Oximetry 10/21/20 20:00 10/21/20 22:00 10/21/20 23:57 Temperature 36.8 C 36.2 C L Pulse Rate 71 73 74 Respiratory Rate 18 20 Blood Pressure 139/56 L 134/45 L Pulse Oximetry 93 92 10/22/20 00:00 10/22/20 00:37 10/22/20 02:00 Temperature Pulse Rate 74 75 77 Respiratory Rate Blood Pressure Pulse Oximetry 10/22/20 04:00 10/22/20 05:02 10/22/20 06:00 Temperature 36.1 C L Pulse Rate 60 80 Respiratory Rate 18 Blood Pressure 147/73 H Pulse Oximetry 91 94 10/22/20 08:03 10/22/20 09:40 Temperature 37.3 C Pulse Rate 80 77 Respiratory Rate 22 H Blood Pressure 143/52 H Pulse Oximetry 93 Intake/Output Intake/Output: Intake & Output 10/19/20 10/20/20 10/21/20 10/22/20 23:59 23:59 23:59 23:59 Intake Total 550 200 Output Total 3400 Balance -2850 200 Meds/Results Medications: Active Medications Generic Name Dose Route Start Last Admin Trade Name Freq PRN Reason Stop Dose Admin Allopurinol 100 mg 10/22/20 08:00 10/22/20 09:40 Allopurinol 100 Mg Tablet PO 100 mg DAILY@0800 MICHELL Administration Amlodipine Besylate 10 mg 10/22/20 09:00 10/22/20 09:40 Amlodipine Besylate 5 Mg Tablet PO 10 mg DAILY MICHELL Administration Apixaban 2.5 mg 10/22/20 09:00 10/22/20 09:40 Apixaban 2.5
[2020-10-22 12:28] LABS: Glucose Point of Care 197 mg/dl (65-105)
--- NOTE | 2020-10-22 13:13 | PM.CNGS ---
Assessment and Plan Assessment and plan (1) Diabetic ulcer of right foot: Code(s): E11.621 - Type 2 diabetes mellitus with foot ulcer; L97.519 - Non-pressure chronic ulcer of other part of right foot with unspecified severity Status: Acute Assessment and Plan: Continue wound VAC and consider orthopedic consultation on Sunday at the time of next wound VAC change in order to consider further surgery due to possible osteomyelitis. (2) Venous stasis dermatitis of both lower extremities: Code(s): I87.2 - Venous insufficiency (chronic) (peripheral) Status: Acute Assessment and Plan: Lactic acid cream to help continued improvement in the patient's skin flaking with stat venous stasis ulceration. She has only minor open wounds that we will continue to treat as needed in the hospital. (3) Right knee pain: Code(s): M25.561 - Pain in right knee Status: Acute (4) Chronic kidney failure: Code(s): N18.9 - Chronic kidney disease, unspecified Status: Acute (5) Weakness: Code(s): R53.1 - Weakness Status: Acute (6) Acute hyperkalemia: Code(s): E87.5 - Hyperkalemia Status: Acute (7) Grade II diastolic dysfunction: Code(s): I51.9 - Heart disease, unspecified Status: Chronic (8) Electrolyte abnormality: Code(s): E87.8 - Other disorders of electrolyte and fluid balance, not elsewhere classified Status: Acute (9) Missed dialysis: Status: Acute (10) Insulin dependent type 2 diabetes mellitus: Code(s): E11.9 - Type 2 diabetes mellitus without complications; Z79.4 - exterminator helper termite (current) use of insulin Status: Acute (11) Peripheral arterial disease: Onset Date: Unknown Code(s): I73.9 - Peripheral vascular disease, unspecified Status: Acute (12) Splenic infarction: Onset Date: Unknown Code(s): D73.5 - Infarction of spleen Status: Acute (13) Hypertension: Onset Date: Unknown Qualifiers: Hypertension type: essential hypertension Qualified Code(s): I10 - Essential (primary) hypertension Code(s): I10 - Essential (primary) hypertension Status: Chronic Assessment and Plan: Continue current meds History of Present Illness Consult details Consult date: 10/22/20 Reason for consult: wound care Requesting physician: Rajeev Hager MD Narrative: This is a 70-year-old White female with end stage Kidney disease on hemodialysis, insulin dependent diabetes, hypertension, chronic anemia, and several other comorbidities who presented to the emergency department on 10/20 via EMS with the chief complaint of missed dialysis. She is scheduled for dialysis on Sunday, , and Saturdays but she occasionally has issues with her transport bus not showing up to take her to dialysis. In fact she missed her treatment on Sunday and today her ride once again did not show up and thus she came in here for dialysis. She tells me that she has gained 40 lb in water weight in the past week since her last dialysis and she has been feeling quite weak. Last evening when she went to go to the bathroom ?my right knee gave out? and she nearly fell in the bathroom but was able to stabilize herself though that apparently put quite a strain on her right knee. She is wondering if she may have a urinary tract infection as she has been having difficulties urinating, although she does not urinating very often. She reports dysuria for the last week or so. Additionally I have been currently treating for a right diabetic foot wound with a wound VAC and is followed by the [place] [facility] for that. I recently saw her within the last several days. She denies fever, chills, sweats, chest pain, pleuritic pain, shortness of breath, or nausea. I have been asked to see her while she is admitted for the above problems in order to follow-up on her diabetic wound. Review of Systems Constitut
--- NOTE | 2020-10-22 13:14 | PM.IMPN ---
Progress Note: A&P Assessment and Plan (1) Bacteremia: Code(s): R78.81 - Bacteremia Status: Acute Assessment and Plan: Patient had blood cultures drawn on admission with 1 of 2 growing gram-positive cocci in clusters from the a [place] bottle only. Suspect wound source from her leg. She has a history of Enterococcus sensitive to vancomycin from a wound culture in August. Will start Primaxin and vancomycin for diabetic foot wound. Follow-up on blood culture results. (2) Missed dialysis: Status: Acute Assessment and Plan: The patient has been having issues getting to dialysis and reports a 40 lb weight gain recently. She had HD yesterday. Nephrology consulted. Will have care coordination determine cause of patient missing HD. (3) Electrolyte abnormality: Code(s): E87.8 - Other disorders of electrolyte and fluid balance, not elsewhere classified Status: Acute Assessment and Plan: Including hyperkalemia (5.8) and hyponatremia (125), likely due to missed dialysis and volume overload. Repeat BMP after dialysis with potassium normal and Na better at 131 as expected. Cortisol level 55 but felt related to the bacteremia. (4) End-stage renal disease on hemodialysis: Code(s): N18.6 - End stage renal disease; Z99.2 - Dependence on renal dialysis Status: Acute Assessment and Plan: Plan is as detailed above. (5) Leukocytosis: Code(s): D72.829 - Elevated white blood cell count, unspecified Status: Acute Assessment and Plan: [place] related to the positive BCx (if real). WBC 15.5K on admisison. and slightly better today. Follow. (6) Elevated LFTs: Code(s): R79.89 - Other specified abnormal findings of blood chemistry Status: Acute Assessment and Plan: Mild elevation in AST that has improved. AP about the same but it appears to be chrnically elevated. TB elevated to 2.2 and relatively unchanged today. Abdominal exam is benign. Follow periodically. (7) Generalized weakness: Code(s): R53.1 - Weakness Status: Acute Assessment and Plan: Likely a combination of all the above. PT/OT (8) Diabetic ulcer of right foot: Code(s): E11.621 - Type 2 diabetes mellitus with foot ulcer; L97.519 - Non-pressure chronic ulcer of other part of right foot with unspecified severity Status: Acute Assessment and Plan: Wound VAC recently changed without reports of active infection. Dr. Nunez consulted and his input is appreciated. (9) Insulin dependent type 2 diabetes mellitus: Code(s): E11.9 - Type 2 diabetes mellitus without complications; Z79.4 - penitentiary (current) use of insulin Status: Acute Assessment and Plan: A1c in August was 8.9%. The patient's blood glucose was reviewed on 10/22. Glucose remains reasonably well controlled. Continue AccuCheks covering with sliding scale. Hypoglycemia protocol available as needed. Continue basal insulin. (10) Chronic anemia: Code(s): D64.9 - Anemia, unspecified Status: Acute Assessment and Plan: Chronic macrocytic anemia which is stable with a hemoglobin in the 9 range. Continue Epoetin. (11) Hypertension: Onset Date: Unknown Qualifiers: Hypertension type: essential hypertension Qualified Code(s): I10 - Essential (primary) hypertension Code(s): I10 - Essential (primary) hypertension Status: Chronic Assessment and Plan: Patient's blood pressure was reviewed on 10/22 Blood pressure better controlled. Will continue current medications. (12) Grade II diastolic dysfunction: Code(s): I51.9 - Heart disease, unspecified Status: Chronic Assessment and Plan: Intermittent issues with getting dialysis as per HPI and is now mildly volume overloaded. Continue hemodialysis to control fluid status. (13) Right knee pain: Code(s): M25.561 - Pain i
[2020-10-22 17:12] LABS: Glucose Point of Care 242 mg/dl (65-105)
[2020-10-22] MEDS: INSULIN ASPART (*BKC) 100 UNITS/ML SUB-Q (18:11)
--- NOTE | 2020-10-22 20:39 | PC.NURSE ---
This patient, Kelley Rodriguez, was transferred to [facility] on 10/22/20 at 2040. Personal belongings sent with patient. Report given to Naseem CHACKO. Appropriate documentation sent with patient.
[2020-10-22] MEDS: INSULIN GLARGINE (*BKC) 100 UNITS/ML 40 UNITS SUB-Q (20:43)
[2020-10-22] MEDS: TOLNAFTATE 1% POWDER 45 GM BTL 1 APPLIC TOPICAL (20:45)
[2020-10-23] VITALS (12 sets, daily range): BP systolic 114–127; BP diastolic 51–69; PULSE 66–77; RESP 12–22; TEMP 36.7–37; O2SAT 93–96
[2020-10-23 01:49] LABS: Glucose Point of Care 282 mg/dl (65-105)
[2020-10-23 07:34] LABS: Basophils Absolute Auto 0.1 K/mm3 (0.0-0.1); Basophils Percent Auto 0.4 % (0.2-1.2); Eosinophils Absolute Auto 0.3 K/mm3 (0-0.3); Eosinophils Percent Auto 2.6 % (0-4.4); Hematocrit 28.8 % (37.0-47.0); Hemoglobin 8.9 g/dL (12.0-15.0); Immature Granulocyte Absolute 0.08 K/mm3 (0.00-0.031); Immature Granulocyte Percent A 0.6 % (0-0.5); Lymphocytes Absolute Auto 0.44 K/mm3 (0.9-3.2); Lymphocytes Percent Auto 3.4 % (18.3-44.2); Mean Corpuscular HGB Conc 30.9 g/dl (32-36); Mean Corpuscular Hemoglobin 31.2 pg (26-34); Mean Corpuscular Volume 101.1 fl (80-100); Mean Platelet Volume 10.2 fl (7.4-10.4); Monocytes Percent Auto 7.8 % (2.6-8.5); Neutrophils Absolute Auto 10.9 K/mm3 (1.3-6.7); Neutrophils Percent Auto 85.2 % (45.5-73.1); Platelet Count Result 277 k/mm3 (150-375); Red Blood Count 2.85 M/mm3 (4.2-5.4); Red Cell Distribution Width 16.7 % (11.5-14.5); White Blood Count 12.8 K/mm3 (4.5-10.0)
[2020-10-23 07:49] LABS: Albumin Level 2.9 g/dL (3.5-5.1); Anion Gap 9 mmol/L (8-16); Blood Urea Nitrogen 43 mg/dL (7-17); Calcium 8.8 mg/dL (8.4-10.2); Carbon Dioxide 25 mmol/L (22-30); Chloride 93 mmol/L (98-107); Estimated CRCL calculation 12 ml/min; Estimated Glomerular Filt Rate 9; Glucose 127 mg/dL (65-110); Phosphorus 4.3 mg/dL (2.5-4.5); Potassium 4.6 mmol/L (3.4-5.0); Sodium 127 mmol/L (137-145)
[2020-10-23 07:51] LABS: Glucose Point of Care 122 mg/dl (65-105)
[2020-10-23] MEDS: TOLNAFTATE 1% POWDER 45 GM BTL 1 APPLIC TOPICAL ×2 (08:26→21:11)
[2020-10-23] MEDS: ATORVASTATIN 20 MG TABLET PO (08:27)
[2020-10-23] MEDS: APIXABAN 2.5 MG TABLET PO ×2 (08:27→17:36)
[2020-10-23] MEDS: CALCIUM ACETATE 667 MG TABLET PO ×3 (08:27→17:36)
[2020-10-23] MEDS: busPIRone HCL 5 MG TABLET 15 MG PO ×2 (08:27→17:33)
[2020-10-23] MEDS: buPROPion HCL SR (12 HR) 150 MG TAB PO (08:27)
[2020-10-23] MEDS: allopurinoL 100 MG TABLET PO (08:28)
[2020-10-23] MEDS: carvediloL 25 MG TABLET PO ×2 (08:28→21:12)
[2020-10-23] MEDS: amLODIPine BESYLATE 5 MG TABLET 10 MG PO (08:29)
[2020-10-23 08:54] LABS: Folic Acid > 20.0 ng/mL (2.76->20)
--- NOTE | 2020-10-23 10:48 | PCPTNOTE ---
Attempted to see pt. this am for PT treatment and pt. was eating. Returned to see pt. at 10:47am and pt. was in dialysis.
--- NOTE | 2020-10-23 11:18 | PM.PNNEP ---
Progress Note: A&P Assessment and Plan (1) End-stage renal disease on hemodialysis: Code(s): N18.6 - End stage renal disease; Z99.2 - Dependence on renal dialysis Status: Acute Assessment and Plan: Kelley has end-stage renal disease. She is on dialysis 3 times a week on Tuesdays and Saturdays. In process now She has some swelling. Does have pulmonary hypertension on echo. (2) Hyperkalemia: Code(s): E87.5 - Hyperkalemia Status: Acute Assessment and Plan: Potassium is okay (3) Generalized weakness: Code(s): R53.1 - Weakness Status: Acute Assessment and Plan: getting physical therapy (4) Right knee pain: Code(s): M25.561 - Pain in right knee Status: Acute Assessment and Plan: The patient has osteoarthritis on her x-ray but no acute findings (5) Insulin dependent type 2 diabetes mellitus: Code(s): E11.9 - Type 2 diabetes mellitus without complications; Z79.4 - termite treater helper (current) use of insulin Status: Acute Assessment and Plan: the patient is on Accu-Cheks and sliding-scale insulin Subjective Date/time seen: 10/23/20 11:18 Interval history: Ava feels okay today. No chest pain or shortness of breath. She is on dialysis right now. She is tolerating this well. We are taking about 3L off. She was seen at 10:45 a.m. Exam Narrative: WDWN in NAD skin no rash head ncat lungs clear cor reg no rub abd BS+ nontender and soft ext no edema. Objective Data Vital Signs Vital Signs: Vital Signs - 24 hr 10/22/20 12:00 10/22/20 12:11 10/22/20 16:48 Temperature 37.1 C 37.2 C Pulse Rate 73 75 76 Respiratory Rate 22 H 20 Blood Pressure 140/52 L 130/48 L Pulse Oximetry 93 94 10/22/20 19:48 10/22/20 20:40 10/23/20 08:28 Temperature 36.9 C 37.0 C Pulse Rate 74 72 77 Respiratory Rate 20 18 Blood Pressure 111/35 L 126/50 L Pulse Oximetry 95 98 10/23/20 10:08 Temperature Pulse Rate Respiratory Rate Blood Pressure Pulse Oximetry 93 Intake/Output Intake/Output: Intake & Output 10/20/20 10/21/20 10/22/20 10/23/20 23:59 23:59 23:59 23:59 Intake Total 550 2019 Output Total 3400 Balance -2850 2019 420 Meds/Results Medications: Active Medications Generic Name Dose Route Start Last Admin Trade Name Freq PRN Reason Stop Dose Admin Allopurinol 100 mg 10/22/20 08:00 10/23/20 08:28 Allopurinol 100 Mg Tablet PO 100 mg DAILY@0800 MICHELL Administration Amlodipine Besylate 10 mg 10/22/20 09:00 10/23/20 08:29 Amlodipine Besylate 5 Mg Tablet PO 10 mg DAILY MICHELL Administration Apixaban 2.5 mg 10/22/20 09:00 10/23/20 08:27 Apixaban 2.5 Mg Tablet PO 2.5 mg BID MICHELL Administration Atorvastatin Calcium 20 mg 10/22/20 09:00 10/23/20 08:27 Atorvastatin 20 Mg Tablet PO 20 mg DAILY MICHELL Administration Bupropion HCl 150 mg 10/22/20 09:00 10/23/20 08:27 Bupropion Hcl Sr (12 Hr) 150 Mg Tab PO 150 mg DAILY MICHELL Administration Buspirone HCl 15 mg 10/22/20 09:00 10/23/20 08:27 Buspirone Hcl 5 Mg Tablet PO 15 mg BID MICHELL Administration Calcium Acetate 667 mg 10/22/20 09:00 10/23/20 08:27 Calcium Acetate 667 Mg Tablet PO 667 mg TID MICHELL Administration Carvedilol 25 mg 10/21/20 23:25 10/23/20 08:28 Carvedilol 25 Mg Tablet PO 25 mg Q12HR MICHELL Administration Dextrose 12.5 gm 10/21/20 21:59 Dextrose 50% 25 Gm/50 Ml Syringe IV PUSH PRN PRN Hypoglycemia Protocol Epoetin Adalid-epbx 10,000 units 10/21/20 10:00 10/21/20 15:00 Epoetin Adalid-Epbx 10,000 Units/Ml Vial IV PUSH 10,000 units TuThSa@1000 MICHELL Administration Glucagon 1 mg 10/21/20 21:59 Glucagon For Inj 1 Mg Vial IM PRN PRN Hypoglycemia Protocol Glucose 15 gm 10/21/20 21:59 Glucose Oral Gel 15 Gm Of Glucse In 37.5 Gm Tube PO PRN PRN Hypoglycemia Protocol Dextrose
[2020-10-23] MEDS: EPOETIN ALFA-EPBX 10,000 UNITS/ML VIAL 10000 UNITS IV PUSH (12:13)
--- NOTE | 2020-10-23 13:23 | PM.IMPN ---
Progress Note: A&P Assessment and Plan (1) Bacteremia: Code(s): R78.81 - Bacteremia Status: Acute Assessment and Plan: Patient had blood cultures drawn on admission with 1 of 2 growing MRSA. Suspect wound source from her leg. She has a history of Enterococcus sensitive to vancomycin from a wound culture in August. Started on Primaxin and vancomycin for diabetic foot wound. Follow-up on blood culture results. Infectious Disease has been consulted (2) Missed dialysis: Status: Acute Assessment and Plan: The patient has been having issues getting to dialysis and reports a 40 lb weight gain recently. She had HD 10/21 and again undergoing 10/23 Nephrology consulted. Will have care coordination determine cause of patient missing HD. (3) Electrolyte abnormality: Code(s): E87.8 - Other disorders of electrolyte and fluid balance, not elsewhere classified Status: Acute Assessment and Plan: Including hyperkalemia (5.8) and hyponatremia (125), likely due to missed dialysis and volume overload. Repeat BMP after dialysis with potassium normal and Na better at 131 as expected. Cortisol level 55 but felt related to the bacteremia. (4) End-stage renal disease on hemodialysis: Code(s): N18.6 - End stage renal disease; Z99.2 - Dependence on renal dialysis Status: Acute Assessment and Plan: Plan is as detailed above. Nephrology on board for inpatient hemodialysis (5) Leukocytosis: Code(s): D72.829 - Elevated white blood cell count, unspecified Status: Acute Assessment and Plan: [place] related to the positive BCx. WBC 15.5K on admisison. and continues to improve (6) Elevated LFTs: Code(s): R79.89 - Other specified abnormal findings of blood chemistry Status: Acute Assessment and Plan: Mild elevation in AST that has improved. A L P about the same but it appears to be chrnically elevated. TB elevated to 2.2 and relatively unchanged today. Abdominal exam is benign. Follow periodically. (7) Generalized weakness: Code(s): R53.1 - Weakness Status: Acute Assessment and Plan: Likely a combination of all the above. PT/OT (8) Diabetic ulcer of right foot: Code(s): E11.621 - Type 2 diabetes mellitus with foot ulcer; L97.519 - Non-pressure chronic ulcer of other part of right foot with unspecified severity Status: Acute Assessment and Plan: Wound VAC recently changed without reports of active infection. Dr. Nunez consulted and his input is appreciated. (9) Insulin dependent type 2 diabetes mellitus: Code(s): E11.9 - Type 2 diabetes mellitus without complications; Z79.4 - ferry terminal supervisor (current) use of insulin Status: Acute Assessment and Plan: A1c in August was 8.9%. The patient's blood glucose was reviewed on 10/22. Glucose remains reasonably well controlled. Continue AccuCheks covering with sliding scale. Hypoglycemia protocol available as needed. Continue basal insulin. (10) Chronic anemia: Code(s): D64.9 - Anemia, unspecified Status: Acute Assessment and Plan: Chronic macrocytic anemia which is stable with a hemoglobin in the 9 range. Continue Epoetin. (11) Hypertension: Onset Date: Unknown Qualifiers: Hypertension type: essential hypertension Qualified Code(s): I10 - Essential (primary) hypertension Code(s): I10 - Essential (primary) hypertension Status: Chronic Assessment and Plan: Patient's blood pressure was reviewed on 10/22 Blood pressure better controlled. Will continue current medications. (12) Grade II diastolic dysfunction: Code(s): I51.9 - Heart disease, unspecified Status: Chronic Assessment and Plan: Intermittent issues with getting dialysis as per HPI and is now mildly volume overloaded. Continue hemodialysis to control fluid status. (13) Right knee pain:
[2020-10-23 15:48] LABS: Glucose Point of Care 167 mg/dl (65-105)
[2020-10-23 17:47] LABS: Glucose Point of Care 152 mg/dl (65-105)
[2020-10-23 21:15] LABS: Glucose Point of Care 126 mg/dl (65-105)
[2020-10-23] MEDS: INSULIN GLARGINE (*BKC) 100 UNITS/ML 40 UNITS SUB-Q (21:15)
[2020-10-23 22:32] LABS: Vancomycin Random 10.6 ug/mL (10-20)
[2020-10-24 06:00] VITALS: BP 138/50; PULSE 71; RESP 18; TEMP 36.2; O2SAT 94
[2020-10-24 07:42] LABS: Basophils Absolute Auto 0.1 K/mm3 (0.0-0.1); Basophils Percent Auto 0.3 % (0.2-1.2); Eosinophils Absolute Auto 0.2 K/mm3 (0-0.3); Eosinophils Percent Auto 1.3 % (0-4.4); Hematocrit 27.8 % (37.0-47.0); Hemoglobin 8.6 g/dL (12.0-15.0); Immature Granulocyte Absolute 0.13 K/mm3 (0.00-0.031); Immature Granulocyte Percent A 0.9 % (0-0.5); Lymphocytes Absolute Auto 0.56 K/mm3 (0.9-3.2); Lymphocytes Percent Auto 3.7 % (18.3-44.2); Mean Corpuscular HGB Conc 30.9 g/dl (32-36); Mean Corpuscular Hemoglobin 31.9 pg (26-34); Mean Platelet Volume 10.4 fl (7.4-10.4); Monocytes Absolute Auto 1.2 K/mm3 (0.1-0.6); Monocytes Percent Auto 7.9 % (2.6-8.5); Neutrophils Absolute Auto 12.9 K/mm3 (1.3-6.7); Neutrophils Percent Auto 85.9 % (45.5-73.1); Platelet Count Result 271 k/mm3 (150-375); Red Cell Distribution Width 16.6 % (11.5-14.5)
[2020-10-24 07:51] LABS: Glucose Point of Care 117 mg/dl (65-105)
[2020-10-24 08:02] LABS: Anion Gap 8 mmol/L (8-16); Blood Urea Nitrogen 34 mg/dL (7-17); Calcium 8.6 mg/dL (8.4-10.2); Carbon Dioxide 27 mmol/L (22-30); Chloride 92 mmol/L (98-107); Estimated CRCL calculation 15 ml/min; Estimated Glomerular Filt Rate 11; Glucose 82 mg/dL (65-110); Sodium 127 mmol/L (137-145)
[2020-10-24] MEDS: amLODIPine BESYLATE 5 MG TABLET 10 MG PO (08:16)
[2020-10-24] MEDS: APIXABAN 2.5 MG TABLET PO ×2 (08:16→16:55)
[2020-10-24] MEDS: busPIRone HCL 5 MG TABLET 15 MG PO ×2 (08:16→16:55)
[2020-10-24] MEDS: allopurinoL 100 MG TABLET PO (08:17)
[2020-10-24] MEDS: LACTIC ACID 12% LOTION 225 BTL 1 APPLIC TOPICAL (08:17)
[2020-10-24] MEDS: CALCIUM ACETATE 667 MG TABLET PO ×2 (08:17→16:56)
[2020-10-24] MEDS: TOLNAFTATE 1% POWDER 45 GM BTL 1 APPLIC TOPICAL ×2 (08:17→21:52)
[2020-10-24] MEDS: ATORVASTATIN 20 MG TABLET PO (08:17)
[2020-10-24] MEDS: buPROPion HCL SR (12 HR) 150 MG TAB PO (08:17)
[2020-10-24] MEDS: carvediloL 25 MG TABLET PO ×2 (08:17→21:34)
--- NOTE | 2020-10-24 08:51 | PCPTNOTE ---
Attempted to see patient this morning for Physical therapy treatment. Pt. reports she is not feeling well and is not able to participate in therapy at this time.
--- NOTE | 2020-10-24 09:16 | WPDINFPN2 ---
Progress Note: A&P Assessment and Plan (1) Bacteremia: Code(s): R78.81 - Bacteremia Status: Acute Assessment and Plan: 1. MRSA bacteremia, R foot source 2. Symptomatic UTI 3. CRF REC Imipenem complete 5 day course, see order. Vanc # 3 / 28 days, through 11/18/20, extend to 42 days if 10/23/20 BCs also +. Local care of foot, vac in place. Call if Qs Subjective Date/time seen: 10/24/20 09:16 Objective Data Vital Signs Vital Signs: Vital Signs - 24 hr 10/23/20 10:08 10/23/20 10:20 10/23/20 10:30 Temperature 36.7 C Pulse Rate 70 70 Respiratory Rate 22 H Blood Pressure 118/57 L 120/58 L Pulse Oximetry 93 10/23/20 11:30 10/23/20 12:30 10/23/20 13:30 Temperature Pulse Rate 70 69 66 Respiratory Rate Blood Pressure 124/56 L 119/51 L 121/69 Pulse Oximetry 10/23/20 13:45 10/23/20 14:53 10/23/20 20:00 Temperature 36.7 C 36.8 C Pulse Rate 71 72 Respiratory Rate 22 H 12 Blood Pressure 127/61 114/63 Pulse Oximetry 96 96 10/23/20 22:24 10/24/20 06:00 Temperature 36.9 C 36.2 C L Pulse Rate 77 71 Respiratory Rate 18 Blood Pressure 127/61 138/50 L Pulse Oximetry 95 94 Intake/Output Intake/Output: Intake & Output 10/21/20 10/22/20 10/23/20 10/24/20 23:59 23:59 23:59 23:59 Intake Total 550 2019 1079 690 Output Total 3400 3000 Balance -2850 2019 690 Meds/Results Medications: Active Medications Generic Name Dose Route Start Last Admin Trade Name Freq PRN Reason Stop Dose Admin Allopurinol 100 mg 10/22/20 08:00 10/24/20 08:17 Allopurinol 100 Mg Tablet PO 100 mg DAILY@0800 MICHELL Administration Amlodipine Besylate 10 mg 10/22/20 09:00 10/24/20 08:16 Amlodipine Besylate 5 Mg Tablet PO 10 mg DAILY MICHELL Administration Apixaban 2.5 mg 10/22/20 09:00 10/24/20 08:16 Apixaban 2.5 Mg Tablet PO 2.5 mg BID MICHELL Administration Atorvastatin Calcium 20 mg 10/22/20 09:00 10/24/20 08:17 Atorvastatin 20 Mg Tablet PO 20 mg DAILY MICHELL Administration Bupropion HCl 150 mg 10/22/20 09:00 10/24/20 08:17 Bupropion Hcl Sr (12 Hr) 150 Mg Tab PO 150 mg DAILY MICHELL Administration Buspirone HCl 15 mg 10/22/20 09:00 10/24/20 08:16 Buspirone Hcl 5 Mg Tablet PO 15 mg BID MICHELL Administration Calcium Acetate 667 mg 10/22/20 09:00 10/24/20 08:17 Calcium Acetate 667 Mg Tablet PO 667 mg TID MICHELL Administration Carvedilol 25 mg 10/21/20 23:25 10/24/20 08:17 Carvedilol 25 Mg Tablet PO 25 mg Q12HR MICHELL Administration Dextrose 12.5 gm 10/21/20 21:59 Dextrose 50% 25 Gm/50 Ml Syringe IV PUSH PRN PRN Hypoglycemia Protocol Epoetin Adalid-epbx 10,000 units 10/21/20 10:00 10/23/20 12:13 Epoetin Adalid-Epbx 10,000 Units/Ml Vial IV PUSH 10,000 units TuThSa@1000 MICHELL Administration Glucagon 1 mg 10/21/20 21:59 Glucagon For Inj 1 Mg Vial IM PRN PRN Hypoglycemia Protocol Glucose 15 gm 10/21/20 21:59 Glucose Oral Gel 15 Gm Of Glucse In 37.5 Gm Tube PO PRN PRN Hypoglycemia Protocol Dextrose 1,000 mls @ 100 mls/hr 10/21/20 21:59 Dextrose 5% 1,000 Ml IVPB PRN PRN Hypoglycemia Protocol Vancomycin HCl 1,500 mg in 500 mls @ 333.333 mls/hr 10/22/20 14:09 Vancomycin 1,500 Mg/D5w 500 Ml IVPB PRN PRN vancomycin protocol Imipenem/Cilastatin Sodium 200 100 mls @ 300 mls/hr 10/22/20 18:00 10/24/20 06:35 mg/ Dextrose IVPB 10/27/20 12:01 Infused Q6HR MICHELL Infusion Insulin Aspart 3 - 6 units 10/22/20 08:00 10/24/20 07:57 Insulin Aspart (*Bkc) 100 Units/Ml SUB-Q Not Given TIDWM [facility] Protocol Insulin Glargine 40 units 10/22/20 21:00 10/23/20 21:15 Insulin Glargine (*Bkc) 100 Units/Ml SUB-Q 40 units HS MICHELL Administration Lactic Acid 1 applic 10/22/20 09:00 10/24/20 08:17 Lactic Acid 12% Lotion 225 Btl TOPICAL 1 applic QAM [facility] Administration Tolnaftate 1 applic 10/22/20 21:00
--- NOTE | 2020-10-24 11:01 | PCPTNOTE ---
2nd attempt to see patient this date for Physical therapy. Pt. was not seen at this time due to patient reporting pain as a 10/10 in her stomach. Pt. reports she has an inflamed stomach lining and that her nurse has contacted the doctor.
[2020-10-24] MEDS: ACETAMINOPHEN 500 MG TABLET 1000 MG PO (12:00)
[2020-10-24] MEDS: FAMOTIDINE 20 MG TABLET PO (12:01)
[2020-10-24 12:24] LABS: Glucose Point of Care 104 mg/dl (65-105)
--- NOTE | 2020-10-24 14:43 | PM.PNNEP ---
Progress Note: A&P Assessment and Plan (1) End-stage renal disease on hemodialysis: Code(s): N18.6 - End stage renal disease; Z99.2 - Dependence on renal dialysis Status: Acute Assessment and Plan: Kelley has end-stage renal disease. She is on dialysis 3 times a week on Tuesdays and Saturdays. Next dialysis on Sunday. She has some swelling. Does have pulmonary hypertension on echo. (2) Hyperkalemia: Code(s): E87.5 - Hyperkalemia Status: Acute Assessment and Plan: Potassium is okay (3) Generalized weakness: Code(s): R53.1 - Weakness Status: Acute Assessment and Plan: getting physical therapy (4) Right knee pain: Code(s): M25.561 - Pain in right knee Status: Acute Assessment and Plan: The patient has osteoarthritis on her x-ray but no acute findings (5) Insulin dependent type 2 diabetes mellitus: Code(s): E11.9 - Type 2 diabetes mellitus without complications; Z79.4 - exterminator (current) use of insulin Status: Acute Assessment and Plan: the patient is on Accu-Cheks and sliding-scale insulin Subjective Date/time seen: 10/24/20 14:43 Interval history: Ava had some pain in her leg. She received some pain pills and now she has indigestion. Hospitalist was notified and she received medication for it. She finished her dialysis without event yesterday. Exam Narrative: WDWN in NAD skin no rash head ncat lungs clear bilaterally cor reg no rub abd BS+ nontender and soft ext no edema. Objective Data Vital Signs Vital Signs: Vital Signs - 24 hr 10/23/20 14:53 10/23/20 20:00 10/23/20 22:24 Temperature 36.8 C 36.9 C Pulse Rate 72 77 Respiratory Rate 12 Blood Pressure 114/63 127/61 Pulse Oximetry 96 96 95 10/24/20 06:00 Temperature 36.2 C L Pulse Rate 71 Respiratory Rate 18 Blood Pressure 138/50 L Pulse Oximetry 94 Intake/Output Intake/Output: Intake & Output 10/21/20 10/22/20 10/23/20 10/24/20 23:59 23:59 23:59 23:59 Intake Total 550 2019 1080 930 Output Total 3400 3000 Balance -2850 2020 -1920 930 Meds/Results Medications: Active Medications Generic Name Dose Route Start Last Admin Trade Name Freq PRN Reason Stop Dose Admin Acetaminophen 1,000 mg 10/24/20 11:13 10/24/20 12:00 Acetaminophen 500 Mg Tablet PO 1,000 mg Q6H PRN Administration Mild Pain (1-3) or Fever Allopurinol 100 mg 10/22/20 08:00 10/24/20 08:17 Allopurinol 100 Mg Tablet PO 100 mg DAILY@0800 MICHELL Administration Amlodipine Besylate 10 mg 10/22/20 09:00 10/24/20 08:16 Amlodipine Besylate 5 Mg Tablet PO 10 mg DAILY MICHELL Administration Apixaban 2.5 mg 10/22/20 09:00 10/24/20 08:16 Apixaban 2.5 Mg Tablet PO 2.5 mg BID MICHELL Administration Atorvastatin Calcium 20 mg 10/22/20 09:00 10/24/20 08:17 Atorvastatin 20 Mg Tablet PO 20 mg DAILY MICHELL Administration Bupropion HCl 150 mg 10/22/20 09:00 10/24/20 08:17 Bupropion Hcl Sr (12 Hr) 150 Mg Tab PO 150 mg DAILY MICHELL Administration Buspirone HCl 15 mg 10/22/20 09:00 10/24/20 08:16 Buspirone Hcl 5 Mg Tablet PO 15 mg BID MICHELL Administration Calcium Acetate 667 mg 10/22/20 09:00 10/24/20 12:13 Calcium Acetate 667 Mg Tablet PO Not Given TID [facility] Carvedilol 25 mg 10/21/20 23:25 10/24/20 08:17 Carvedilol 25 Mg Tablet PO 25 mg Q12HR MICHELL Administration Dextrose 12.5 gm 10/21/20 21:59 Dextrose 50% 25 Gm/50 Ml Syringe IV PUSH PRN PRN Hypoglycemia Protocol Epoetin Adalid-epbx 10,000 units 10/21/20 10:00 10/23/20 12:13 Epoetin Adalid-Epbx 10,000 Units/Ml Vial IV PUSH 10,000 units TuThSa@1000 MICHELL Administration Famotidine 20 mg 10/24/20 11:45 10/24/20 12:01 Famotidine 20 Mg Tablet PO 20 mg QAM MICHELL Administration Glucagon 1 mg 10/21/20 21:59 Glucagon For Inj 1 Mg Vial IM PRN PRN Hypoglycemia Protoco
[2020-10-24 14:48] VITALS: BP 116/58; PULSE 66; RESP 12; TEMP 36.7; O2SAT 100
--- NOTE | 2020-10-24 15:46 | PM.IMPN ---
Progress Note: A&P Assessment and Plan (1) Bacteremia: Code(s): R78.81 - Bacteremia Status: Acute Assessment and Plan: Patient had blood cultures drawn on admission with 1 of 2 growing MRSA. Likely source is foot wound. She has a history of Enterococcus sensitive to vancomycin from a wound culture in August. Started on Primaxin and vancomycin for diabetic foot wound. Follow-up on blood culture results. Infectious Disease has been consulted (2) Missed dialysis: Status: Acute Assessment and Plan: The patient has been having issues getting to dialysis and reports a 40 lb weight gain recently. She had HD 10/21 and again undergoing 10/23 Nephrology consulted. Continue TTS schedule. (3) Electrolyte abnormality: Code(s): E87.8 - Other disorders of electrolyte and fluid balance, not elsewhere classified Status: Acute Assessment and Plan: Including hyperkalemia (5.8) and hyponatremia (125), likely due to missed dialysis and volume overload. Repeat BMP after dialysis with potassium normal and Na better at 131 as expected. Cortisol level 55 but felt related to the bacteremia. (4) End-stage renal disease on hemodialysis: Code(s): N18.6 - End stage renal disease; Z99.2 - Dependence on renal dialysis Status: Acute Assessment and Plan: Plan is as detailed above. Nephrology on board for inpatient hemodialysis (5) Leukocytosis: Code(s): D72.829 - Elevated white blood cell count, unspecified Status: Acute Assessment and Plan: [place] related to the positive BCx. WBC 15.5K on admisison. and continues to improve (6) Elevated LFTs: Code(s): R79.89 - Other specified abnormal findings of blood chemistry Status: Acute Assessment and Plan: Mild elevation in AST that has improved. A L P about the same but it appears to be chrnically elevated. TB elevated to 2.2 and relatively unchanged today. Abdominal exam is benign. Follow periodically. (7) Generalized weakness: Code(s): R53.1 - Weakness Status: Acute Assessment and Plan: Likely a combination of all the above. PT/OT (8) Diabetic ulcer of right foot: Code(s): E11.621 - Type 2 diabetes mellitus with foot ulcer; L97.519 - Non-pressure chronic ulcer of other part of right foot with unspecified severity Status: Acute Assessment and Plan: Wound VAC recently changed without reports of active infection. Dr. Nunez consulted and his input is appreciated. 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 The patient's blood glucose was reviewed on 10/22. Glucose remains reasonably well controlled. Continue AccuCheks covering with sliding scale. Hypoglycemia protocol available as needed. Continue basal insulin. (10) Chronic anemia: Code(s): D64.9 - Anemia, unspecified Status: Acute Assessment and Plan: Chronic macrocytic anemia which is stable with a hemoglobin in the 9 range. Continue Epoetin. (11) Hypertension: Onset Date: Unknown Qualifiers: Hypertension type: essential hypertension Qualified Code(s): I10 - Essential (primary) hypertension Code(s): I10 - Essential (primary) hypertension Status: Chronic Assessment and Plan: Patient's blood pressure was reviewed on 10/24 Blood pressure adequate Will continue current medications. (12) Grade II diastolic dysfunction: Code(s): I51.9 - Heart disease, unspecified Status: Chronic Assessment and Plan: Seems to be at baseline (13) Right knee pain: Code(s): M25.561 - Pain in right knee Status: Acute Assessment and Plan: Secondary to near fall in the bathroom. X-ray consistent with osteoarthritis. C
[2020-10-24 16:40] LABS: Glucose Point of Care 102 mg/dl (65-105)
[2020-10-24] MEDS: SUCRALFATE SUSP 100 MG/ML 10 ML UDC 1000 MG PO ×2 (16:55→21:35)
[2020-10-24 20:00] VITALS: O2SAT 95
[2020-10-24 21:34] VITALS: PULSE 66
[2020-10-24 22:00] VITALS: BP 120/71; PULSE 62; RESP 20; TEMP 36.1; O2SAT 98
[2020-10-25] VITALS (7 sets, daily range): BP systolic 122–136; BP diastolic 50–74; PULSE 69–72; RESP 18–20; TEMP 36.4–37.1; O2SAT 93–97
[2020-10-25 04:34] LABS: Glucose Point of Care 108 mg/dl (65-105)
[2020-10-25] MEDS: SUCRALFATE SUSP 100 MG/ML 10 ML UDC 1000 MG PO ×4 (05:48→20:53)
--- NOTE | 2020-10-25 06:51 | CONS_ITS ---
DATE OF CONSULTATION: 10/24/2020 REASON FOR CONSULTATION: MRSA bacteremia. HISTORY OF PRESENT ILLNESS: Known to me from the past. She was here in the hospital in August, had a diabetic foot ulcer with no cellulitis, no osteomyelitis. MRI at that time did not demonstrate osteomyelitis. She was given levofloxacin for 30-day course, which she completed just prior to the present admission. Wound cultures were polymicrobial to time. The patient was admitted to the hospital on October 21 after missing 2 dialysis days and noted a 40-pound weight gain and anasarca. In the interim, she has also been followed by Dr. Nunez and Dr. Salcido with several debridements performed various times. She has known peripheral neuropathy. Her wound care visit on the involved adjustment in her wound VAC and on the , she was improving and her levofloxacin was allowed to . The patient since admission has been found to have a symptomatic UTI, manifested by dysuria in the setting of chronic vaginitis. She also has positive blood cultures. Vancomycin was started on as well as imipenem. Consultation requested. No fever, chills, or sweats at home. No other recent antibiotics. The foot still has a wound VAC in place. No new trauma. No other operative interventions. ALLERGIES: NONE KNOWN. PRESENT MEDICATIONS: List reviewed multiple. No immunosuppressants. HABITS: No tobacco. No alcohol. PAST MEDICAL HISTORY: AV fistula, left arm functioning well, glaucoma surgery, diabetic peripheral neuropathy, also retinopathy, TAHBSO, cataract extractions, chronic venous stasis, splenic infarct, shingles, osteoporosis, pulmonary hypertension, diabetes mellitus type 2, liver infarct, hypertension, hyperlipidemia, diastolic dysfunction, gout, GERD, gastroparesis, previous stroke, thyroid cyst, anxiety, and depression. REVIEW OF SYSTEMS: 14-point review otherwise negative. She feels poorly today, nothing specific. FAMILY HISTORY: Not pertinent to her present illness. SOCIAL HISTORY: She is , lives locally. Two children have , 2 of her sons are healthy, not at the bedside. 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 PHYSICAL EXAMINATION: GENERAL: Elderly female appears older than her actual age. Appears mildly ill, but no respiratory distress. VITAL SIGNS: Afebrile since arrival, 138/50, 71, 18. SKIN: She has venous stasis dermatitis, bilateral legs, worse on the right. Elsewhere, no rashes, skin breakdown, fistula in the left upper extremity. No tenderness, erythema, warmth, crepitus. HEENT: Conjunctivae are normal. Pupils equal, round, and reactive. Oropharynx, oral mucosa normal. Dry mucous membranes. NECK: No masses, thyromegaly, adenopathy, meningismus. LUNGS: Clear to auscultation and percussion. CHEST: Equal expansion. Normal AP diameter. No indwelling vascular devices. CARDIAC: Soft, S1, S2. Regular rate and rhythm. No gallops and no murmurs. ABDOMEN: Obese, nontender. No masses. No organomegaly. EXTREMITIES: Wound VAC in place with the plantar ulcer conceivable by the wound VAC and the apparatus extends to the dorsum of the foot as well. The left side has no skin breakdown. LABORATORY DATA: Blood cultures 2/2 sets MRSA suspected on 1 set and confirmed on the other. Repeat blood cultures yesterday no growth so far. Urine culture with a Pseudomonas. Her urinalysis, multiple abnormalities, which are reviewed. White blood cell count is 15.0 and was 15.5 on admission. Hemoglobin 8.6, platelets are 271. She has hyponatremia. BUN 34, creatinine 4.0, hemoglobin A1c 6.6%. CRP last performed in August,. RADIOLOGY: Foot MRI, 09/08, no osteomyelitis. Chest x-ray currently with congestive heart failure. Knee x-ray, 10/21. No acute osseous abnormality. NILSA.
[2020-10-25 06:54] LABS: Estimated CRCL calculation 13 ml/min; Estimated Glomerular Filt Rate 9
[2020-10-25] MEDS: amLODIPine BESYLATE 5 MG TABLET 10 MG PO (08:07)
[2020-10-25] MEDS: FAMOTIDINE 20 MG TABLET PO (08:07)
[2020-10-25] MEDS: ATORVASTATIN 20 MG TABLET PO (08:07)
[2020-10-25] MEDS: busPIRone HCL 5 MG TABLET 15 MG PO ×2 (08:07→17:42)
[2020-10-25] MEDS: buPROPion HCL SR (12 HR) 150 MG TAB PO (08:07)
[2020-10-25] MEDS: carvediloL 25 MG TABLET PO ×2 (08:07→20:53)
[2020-10-25] MEDS: APIXABAN 2.5 MG TABLET PO ×2 (08:07→17:41)
[2020-10-25] MEDS: CALCIUM ACETATE 667 MG TABLET PO ×3 (08:07→17:43)
[2020-10-25] MEDS: allopurinoL 100 MG TABLET PO (08:08)
[2020-10-25] MEDS: TOLNAFTATE 1% POWDER 45 GM BTL 1 APPLIC TOPICAL ×2 (08:13→20:54)
[2020-10-25] MEDS: LACTIC ACID 12% LOTION 225 BTL 1 APPLIC TOPICAL (08:13)
[2020-10-25] MEDS: ACETAMINOPHEN 500 MG TABLET 1000 MG PO ×3 (08:19→22:23)
--- NOTE | 2020-10-25 09:17 | PM.IMPN ---
Progress Note: A&P Assessment and Plan (1) MRSA bacteremia: Code(s): R78.81 - Bacteremia; B95.62 - Methicillin resistant Staphylococcus aureus infection as the cause of diseases classified elsewhere Status: Acute Assessment and Plan: Patient had blood cultures drawn on admission (10/21) with 2 of 2 bottles growing MRSA. Likely source is foot wound. Started on Primaxin and vancomycin for diabetic foot wound. Repeat blood cultures (10/23) again growing MRSA in 2of2 bottles. Infectious Disease following and appreciate their input. (2) Missed dialysis: Status: Acute Assessment and Plan: The patient has been having issues getting to dialysis and reports a 40 lb weight gain recently. She has had HD here. Continue TTS schedule. Care coordination to determine if there is a more reliable source of transportation. (3) Electrolyte abnormality: Code(s): E87.8 - Other disorders of electrolyte and fluid balance, not elsewhere classified Status: Acute Assessment and Plan: Including hyperkalemia (5.8) and hyponatremia (125), likely due to missed dialysis and volume overload. Repeat BMP yesterday with normal potassium. Sodium down to 127 but stable. Cortisol level 55 but felt related to the bacteremia. Repet cortisol. (4) End-stage renal disease on hemodialysis: Code(s): N18.6 - End stage renal disease; Z99.2 - Dependence on renal dialysis Status: Acute Assessment and Plan: Plan is as detailed above. Nephrology on board for inpatient hemodialysis (5) Leukocytosis: Code(s): D72.829 - Elevated white blood cell count, unspecified Status: Acute Assessment and Plan: [place] related to the positive BCx. WBC 15.5K on admission but unchanged since. Continue to follow. (6) Elevated LFTs: Code(s): R79.89 - Other specified abnormal findings of blood chemistry Status: Acute Assessment and Plan: Mild elevation in AST that has normalized. AP about the same but it appears to be chronically elevated. TB elevated to 2.2 on admisison and relatively unchanged on repeat. Abdominal exam is benign. Follow periodically. (7) Generalized weakness: Code(s): R53.1 - Weakness Status: Acute Assessment and Plan: Likely a combination of all the above. PT/OT (8) Diabetic ulcer of right foot: Code(s): E11.621 - Type 2 diabetes mellitus with foot ulcer; L97.519 - Non-pressure chronic ulcer of other part of right foot with unspecified severity Status: Acute Assessment and Plan: Wound VAC recently changed. GenSurg found that there is an area laterally with bone exposure concerning now for osteomyelitis. Appreciate GenSurg input. (9) Insulin dependent type 2 diabetes mellitus: Code(s): E11.9 - Type 2 diabetes mellitus without complications; Z79.4 - [facility]FP (current) use of insulin Status: Acute Assessment and Plan: A1c in August was 8.9%. The patient's blood glucose was reviewed on 10/25. Glucose remains very well controlled. She did refuse her Lantus last night. Continue AccuCheks covering with sliding scale. Hypoglycemia protocol available as needed. Continue basal insulin but decrease dose by 10%. (10) Chronic anemia: Code(s): D64.9 - Anemia, unspecified Status: Acute Assessment and Plan: Chronic macrocytic anemia which is stable with a hemoglobin in the 9 range. Continue Epoetin. (11) Hypertension: Onset Date: Unknown Qualifiers: Hypertension type: essential hypertension Qualified Code(s): I10 - Essential (primary) hypertension Code(s): I10 - Essential (primary) hypertension Status: Chronic Assessment and Plan: Patient's blood pressure was reviewed on 10/25 Blood pressure well controlled Will continue current medications. (12) Grade II diastolic dysfunction: Code(s): I51.9 - Heart disease, unspecified Statu
--- NOTE | 2020-10-25 09:29 | PM.PNGS ---
Progress Note: A&P Assessment and Plan (1) Diabetic ulcer of right foot: Code(s): E11.621 - Type 2 diabetes mellitus with foot ulcer; L97.519 - Non-pressure chronic ulcer of other part of right foot with unspecified severity Status: Acute Assessment and Plan: Removed wound VAC dressing today. There is now an area of bone exposed on the lateral aspect of the right foot wound. This is a change from when she was last seen in the wound clinic as an outpatient. Now with +blood cultures as mentioned below. No active drainage from the wound ([place] wound cx polymicrobial). Will obtain x-rays today and will consult Orthopedics to evaluate the patient. (2) MRSA bacteremia: Code(s): R78.81 - Bacteremia; B95.62 - Methicillin resistant Staphylococcus aureus infection as the cause of diseases classified elsewhere Status: Acute Assessment and Plan: Blood cultures 2/2 sets MRSA suspected on 1 set and confirmed on the other. [place] the source is likely to be right foot wound. ID consulted and recommending 28-day course of IV Vancomycin, potentially extended if new blood cx +, and 5-day course of Imipenem. See plan above for right foot wound care. (3) Venous stasis dermatitis of both lower extremities: Code(s): I87.2 - Venous insufficiency (chronic) (peripheral) Status: Acute (4) Chronic kidney failure: Code(s): N18.9 - Chronic kidney disease, unspecified Status: Acute Assessment and Plan: Nephrology following. Hemodialysis typically T, TH, Sat. 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 Nunez. Subjective Subjective Date/Time Seen: 10/25/20 09:29 Patient reports: no new complaints, feels better and afebrile Interval history: Patient seen this morning sitting up on the bedside about to take a sponge bath. Reports no specific complaints. Reports most of her pain in her foot has resolved. No other complaints at this time. Exam Const: General: comfortable and no acute distress Orientation/consciousness: patient oriented x3 Skin: Other: Right foot wound VAC dressing removed. There is an open wound on the plantar aspect of the midfoot with majority of the wound bed with granulating tissue, but one small area of bone exposed on the very lateral aspect of the wound. No purulent drainage or surrounding cellulitis. Neuro: General: moves all extremities and no focal motor deficits Extrem: Right lower extremity: lower leg ( venous stasis changes with dry crusty skin in several areas. ) Details: non-pitting edema and abrasion ( Anterior leg just below the knee); no crepitus Left lower extremity: lower leg (chronic venous stasis skin changes) Psych: Appearance: disheveled Insight: Fair insight present (Psych) Judgement: Fair judgement present (Psych) Objective Data Vital Signs Vital Signs: Vital Signs - 24 hr 10/24/20 14:48 10/24/20 20:00 10/24/20 21:34 Temperature 98.1 F Pulse Rate 66 66 Respiratory Rate 12 Blood Pressure 116/58 L Pulse Oximetry 100 95 10/24/20 22:00
[2020-10-25 10:45] LABS: Glucose Point of Care 95 mg/dl (65-105)
--- NOTE | 2020-10-25 10:54 | PM.CNOR ---
Assessment and Plan Assessment and plan (1) Diabetic ulcer of right foot: Qualifiers: Diabetes mellitus type: type 2 Diabetic foot ulcer location: midfoot Non-pressure ulcer stage: with bone involvement without evidence of necrosis Qualified Code(s): E11.621 - Type 2 diabetes mellitus with foot ulcer; L97.416 - Non-pressure chronic ulcer of right heel and midfoot with bone involvement without evidence of necrosis Code(s): E11.621 - Type 2 diabetes mellitus with foot ulcer; L97.519 - Non-pressure chronic ulcer of other part of right foot with unspecified severity Status: Acute Assessment and Plan: Patient admitted in the setting of missed dialysis now with concerns for worsening of chronic right plantar midfoot diabetic foot ulcer which has undergone multiple debridements by both Podiatry and General surgery. Most recently, the patient has been treated by Dr. Nunez and [facility] She has been followed closely in the wound clinic as well. No necrotic tissue noted on exam today. Exposure of bone noted on the plantar lateral aspect of the right foot. Currently awaiting right foot x-rays to determine if osteomyelitis is present. She is being followed by infectious disease as well, appreciate recommendations. Agree with continuation of wound VAC at this time pending radiographs. Continue to elevate the right lower extremity on pillows. Nonweightbearing right lower extremity in the interim. We will determine further plan of care pending radiographs and further imaging as necessary. History of Present Illness HPI Consult date: 10/25/20 Requesting physician: Arnold Nunez MD Consult reason: other (Right DFU ) Chief complaint: hyperkalemia,chrnic renal failure,weakness Narrative: 70-year-old female with a history of a right plantar diabetic foot ulcer which initially began in August. She does have a history of bilateral lower extremity lymphedema. She was initially seen by a cad technician and then general surgery assumed care. In early September, she underwent a debridement by Dr. Nunez in the operating room. She then had a wound VAC placed and has been undergoing wound VAC dressing changes since that time. She has also been on oral antibiotics. She has been residing at a longterm and been followed in the [facility] wound clinic. The patient is bed bound and has been in a wheelchair for approximately 3 years. She states that she does not bear any weight on the right lower extremity. She was most recently admitted after missing HD. General surgery was consulted during this hospitalization for revaluation of her wound and wound VAC changes. Upon removal of the wound VAC, it was noted that the patient had new exposure of bone on the plantar/lateral aspect of the right foot, likley over the cuboid. General surgery consulted the orthopedic service, Dr. Varma, for further evaluation and recommendations. Review of Systems Constitutional: Constitutional: Reports no additional constitutional complaints, Denies chills, Denies fatigue, Denies fever(s), Denies headache(s) and Denies weakness Eyes: Eyes: Denies change in vision ENT: Reports Normal hearing present and Denies headache(s) Cardiovascular: Cardiovascular: Denies chest pain, Reports pedal edema and Reports edema Respiratory: Respiratory: Denies cough, Denies dyspnea and Denies wheezing Gastrointestinal: Gastrointestinal: Denies constipation, Denies diarrhea, Denies nausea and Denies vomiting Genitourinary: Genitourinary: Reports no additional female genitourinary complaints Musculoskeletal: Musculoskeletal: Reports as per HPI, Reports numbness, Reports tingling and Reports other (decreased sensation b/l LE ) Integumentary/Breasts: Skin/Breast: Reports as per HPI Neurologic: Reports as per HPI, Reports Normal hearing present and Denies headache(s) Psychiatric: Psychiatric: Reports no additional psych
[2020-10-25] MEDS: oxyCODONE HCL (*CRX) 2.5 MG TAB IR PO (12:49)
[2020-10-25 12:53] LABS: Glucose Point of Care 114 mg/dl (65-105)
--- NOTE | 2020-10-25 16:42 | PM.PNNEP ---
Progress Note: A&P Assessment and Plan (1) End-stage renal disease on hemodialysis: Code(s): N18.6 - End stage renal disease; Z99.2 - Dependence on renal dialysis Status: Chronic Assessment and Plan: hemodialysis tomorrow and continue //Sunday schedule follow electrolytes, volume status, and clearance (2) Hyperkalemia: Code(s): E87.5 - Hyperkalemia Status: Acute Assessment and Plan: resolved due to missed dialysis treatment prior to admission (3) MRSA bacteremia: Code(s): R78.81 - Bacteremia; B95.62 - Methicillin resistant Staphylococcus aureus infection as the cause of diseases classified elsewhere Status: Acute Assessment and Plan: blood cultures drawn on admission (10/21) with 2 of 2 bottles growing MRSA suspected source is foot wound repeat blood cultures (10/23) again growing MRSA in 2 of 2 bottles again Infectious Disease following -- antibiotic therapy as outlined repeat blood cultures NGTD on 10/26 continue current therapy (4) Diabetic ulcer of right foot: Qualifiers: Diabetic foot ulcer location: midfoot Diabetes mellitus type: type 2 Non-pressure ulcer stage: with necrosis of bone Qualified Code(s): E11.621 - Type 2 diabetes mellitus with foot ulcer; L97.414 - Non-pressure chronic ulcer of right heel and midfoot with necrosis of bone Code(s): E11.621 - Type 2 diabetes mellitus with foot ulcer; L97.519 - Non-pressure chronic ulcer of other part of right foot with unspecified severity Status: Acute Assessment and Plan: complicated by findings of osteomyeltiis (Surgery found that there is an area laterally with bone exposure) foot x-ray (10/25/20) showing osteomyelitis involving 5th metatarsal - possible source of MRSA bacteremia/positive blood cultures wound vac in place - patient refusing right 5th metatarsal amputation Surgery and Orthopedics following (5) Hypertension: Onset Date: Unknown Qualifiers: Hypertension type: essential hypertension Qualified Code(s): I10 - Essential (primary) hypertension Code(s): I10 - Essential (primary) hypertension Status: Chronic Assessment and Plan: reasonable control at this time suspect pain issue may cause some fluctuations follow trend of parameters (6) Anemia: Onset Date: Unknown Code(s): D64.9 - Anemia, unspecified Status: Chronic Assessment and Plan: due to ESRD and complicated by recent hospitalizations and infections Epogen with HD follow trend of H/H (7) Insulin dependent type 2 diabetes mellitus: Code(s): E11.9 - Type 2 diabetes mellitus without complications; Z79.4 - skilled nursing (current) use of insulin Status: Chronic Assessment and Plan: follow accuchecks on SSI and Lanuts Will continue to follow. Subjective Date/time seen: 10/25/20 16:42 Chart reviewed - assuming care from Dr. Garcia; appears to be doing reasonably well at the time of my visit; no apparent distress althought had some pain in her right foot earlier today but appears better/tolerable currently; breathing/respiratory status stable. Exam Narrative: General: WD/WN female in NAD Heart: normal S1 and S2; no rub Lungs: decreased at bases Abdomen: soft, nontender, nondistended, positive bowel sounds Extremities: no cyanosis or clubbing; no edema Skin: right foot wound with wound vac in place Objective Data Vital Signs Vital Signs: Vital Signs Temp Pulse Resp BP Pulse Ox 10/25/20 14:00 36.4 C L 72 20 122/74 96 10/25/20 08:07 70 10/25/20 06:00 36.8 C 72 20 136/50 L 96 10/24/20 22:00 36.1 C L 62 20 120/71 98 10/24/20 21:34 66 10/24/20 20:00 95 Intake/Output Intake/Output: Intake & Output 10/22/20 10/23/20 10/24/20 10/25/20 23:59 23:59 23:59 23:59 Intake Total 2019 1080 1610 710 Output Total 3000 0 Balance 2019 1610 710
--- NOTE | 2020-10-25 16:42 | P.PNNP_ITS ---
Progress Note: A&P Assessment and Plan (1) End-stage renal disease on hemodialysis: Code(s): N18.6 - End stage renal disease; Z99.2 - Dependence on renal dialysis Status: Chronic Assessment and Plan: * hemodialysis tomorrow and continue //Sunday schedule * follow electrolytes, volume status, and clearance (2) Hyperkalemia: Code(s): E87.5 - Hyperkalemia Status: Acute Assessment and Plan: * resolved * due to missed dialysis treatment prior to admission (3) MRSA bacteremia: Code(s): R78.81 - Bacteremia; B95.62 - Methicillin resistant Staphylococcus aureus infection as the cause of diseases classified elsewhere Status: Acute Assessment and Plan: * blood cultures drawn on admission (10/21) with 2 of 2 bottles growing MRSA * suspected source is foot wound * repeat blood cultures (10/23) again growing MRSA in 2 of 2 bottles again * Infectious Disease following -- antibiotic therapy as outlined * repeat blood cultures NGTD on 10/26 * continue current therapy (4) Diabetic ulcer of right foot: Qualifiers: Diabetic foot ulcer location: midfoot Diabetes mellitus type: type 2 Non-pressure ulcer stage: with necrosis of bone Qualified Code(s): E11.621 - Type 2 diabetes mellitus with foot ulcer; L97.414 - Non-pressure chronic ulcer of right heel and midfoot with necrosis of bone Code(s): E11.621 - Type 2 diabetes mellitus with foot ulcer; L97.519 - Non-pressure chronic ulcer of other part of right foot with unspecified severity Status: Acute Assessment and Plan: * complicated by findings of osteomyeltiis (Surgery found that there is an area laterally with bone exposure) * foot x-ray (10/25/20) showing osteomyelitis involving 5th metatarsal - possible source of MRSA bacteremia/positive blood cultures * wound vac in place - patient refusing right 5th metatarsal amputation * Surgery and Orthopedics following (5) Hypertension: Onset Date: Unknown Qualifiers: Hypertension type: essential hypertension Qualified Code(s): I10 - Essential (primary) hypertension Code(s): I10 - Essential (primary) hypertension Status: Chronic Assessment and Plan: * reasonable control at this time * suspect pain issue may cause some fluctuations * follow trend of parameters (6) Anemia: Onset Date: Unknown Code(s): D64.9 - Anemia, unspecified Status: Chronic Assessment and Plan: * due to ESRD and complicated by recent hospitalizations and infections * Epogen with HD * follow trend of H/H (7) Insulin dependent type 2 diabetes mellitus: Code(s): E11.9 - Type 2 diabetes mellitus without complications; 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 Subjective Date/time seen: 10/25/20 16:42 Chart reviewed - assuming care from Dr. Garcia; appears to be doing reasonably well at the time of my visit; no apparent distress althought had some pain in her right foot earlier today but appears better/tolerable currently; breathing/respiratory status stable. Exam Narrative: General: WD/WN female in NAD Heart: normal S1 and S2; no rub Lungs: decreased at bases Abdomen: soft, nontender, nondistended, positive bowel sounds Extremities: no cyanosis or clubbing; no edema Skin: right foot wound with wound vac in place Objective Data Vital Signs Vital Signs:
[2020-10-25] MEDS: EUCERIN CREAM 120 GM JAR 1 APPLIC TOPICAL ×2 (17:41→17:53)
[2020-10-25 18:18] LABS: Glucose Point of Care 158 mg/dl (65-105)
[2020-10-25 21:25] LABS: Glucose Point of Care 176 mg/dl (65-105)
[2020-10-26] VITALS (17 sets, daily range): BP systolic 117–165; BP diastolic 46–84; PULSE 64–71; RESP 18–20; TEMP 36.4–37; O2SAT 94–98
[2020-10-26] MEDS: SUCRALFATE SUSP 100 MG/ML 10 ML UDC 1000 MG PO ×3 (05:20→20:36)
[2020-10-26 06:17] LABS: Hematocrit 29.2 % (37.0-47.0); Mean Corpuscular HGB Conc 30.8 g/dl (32-36); Mean Corpuscular Hemoglobin 31.4 pg (26-34); Mean Corpuscular Volume 101.7 fl (80-100); Mean Platelet Volume 10.2 fl (7.4-10.4); Platelet Count Result 286 k/mm3 (150-375); Red Blood Count 2.87 M/mm3 (4.2-5.4); Red Cell Distribution Width 16.4 % (11.5-14.5); White Blood Count 18.5 K/mm3 (4.5-10.0)
[2020-10-26 06:32] LABS: Alanine Aminotransferase 16 U/L (4-35); Albumin Level 2.4 g/dL (3.5-5.1); Alkaline Phosphatase 179 U/L (38-126); Anion Gap 8 mmol/L (8-16); Aspartate Amino Transferase 23 U/L (14-36); Bilirubin,Total 1.6 mg/dL (0.2-1.3); Blood Urea Nitrogen 52 mg/dL (7-17); Calcium 8.8 mg/dL (8.4-10.2); Carbon Dioxide 26 mmol/L (22-30); Chloride 94 mmol/L (98-107); Estimated CRCL calculation 12 ml/min; Estimated Glomerular Filt Rate 8; Glucose 155 mg/dL (65-110); Phosphorus 4.2 mg/dL (2.5-4.5); Potassium 4.4 mmol/L (3.4-5.0); Sodium 128 mmol/L (137-145)
[2020-10-26 08:56] LABS: Glucose Point of Care 148 mg/dl (65-105)
[2020-10-26] MEDS: CALCIUM ACETATE 667 MG TABLET PO ×3 (09:02→18:11)
[2020-10-26] MEDS: ATORVASTATIN 20 MG TABLET PO (09:02)
[2020-10-26] MEDS: amLODIPine BESYLATE 5 MG TABLET 10 MG PO (09:03)
[2020-10-26] MEDS: carvediloL 25 MG TABLET PO ×2 (09:03→20:39)
[2020-10-26] MEDS: FAMOTIDINE 20 MG TABLET PO (09:03)
[2020-10-26] MEDS: APIXABAN 2.5 MG TABLET PO ×2 (09:04→18:11)
[2020-10-26] MEDS: allopurinoL 100 MG TABLET PO (09:04)
[2020-10-26] MEDS: buPROPion HCL SR (12 HR) 150 MG TAB PO (09:04)
[2020-10-26] MEDS: busPIRone HCL 5 MG TABLET 15 MG PO ×2 (09:04→18:11)
[2020-10-26] MEDS: EUCERIN CREAM 120 GM JAR 1 APPLIC TOPICAL ×2 (09:05→18:12)
[2020-10-26] MEDS: LACTIC ACID 12% LOTION 225 BTL 1 APPLIC TOPICAL (09:05)
[2020-10-26] MEDS: TOLNAFTATE 1% POWDER 45 GM BTL 1 APPLIC TOPICAL ×2 (09:05→20:40)
--- NOTE | 2020-10-26 09:25 | PM.PNORT ---
Progress Note: A&P Assessment and Plan (1) Diabetic ulcer of right foot: Qualifiers: Diabetic foot ulcer location: midfoot Diabetes mellitus type: type 2 Non-pressure ulcer stage: with necrosis of bone Qualified Code(s): E11.621 - Type 2 diabetes mellitus with foot ulcer; L97.414 - Non-pressure chronic ulcer of right heel and midfoot with necrosis of bone Code(s): E11.621 - Type 2 diabetes mellitus with foot ulcer; L97.519 - Non-pressure chronic ulcer of other part of right foot with unspecified severity Status: Acute Assessment and Plan: Patient seen and examined. Chart and history reviewed. Orthopedic consultation with FRANKY Crawford discussed and reviewed. Medical comorbidities including diabetes, peripheral neuropathy, lower extremity venous stasis, renal failure and peripheral arterial disease. Chance for healing very low. Risk for loss of limb very high. Necrotic bone changes seen on radiographs of the base of the 5th metatarsal possibly from infection although clinically does not appear to actively be infected. May be necrotic changes from loss Of soft tissue and blood flow. further surgical debridement with low chance of healing and high chance of complications. Patient has declined amputation of the right foot which would have the highest chance for surgical success. At this point recommend continue with conservative treatment with wound VAC, wound care, offloading, treatment for venous stasis. Not sure vascular surgery would have anything further to add in regard to peripheral arterial flow, due to small vessel arterial disruption and medical comorbidities. Plan to continue to follow with current wound care plans. May consider further surgical treatment for any change in condition. 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 (5) Neuropathy due to type 2 diabetes mellitus: Code(s): E11.40 - Type 2 diabetes mellitus with diabetic neuropathy, unspecified Status: Acute (6) Venous stasis dermatitis of both lower extremities: Code(s): I87.2 - Venous insufficiency (chronic) (peripheral) Status: Acute Subjective Subjective Date/Time Seen: 10/26/20 09:25 Principal diagnosis: Right diabetic foot ulcer Interval history: patient seen and examined. Chronic right diabetic foot ulcer now with bone exposed on the plantar lateral aspect. No current evidence of infection. No pain secondary to neuropathy. Patient adamantly declines amputation. Review of Systems Constitutional: Constitutional: Reports no additional constitutional complaints, Denies chills, Denies fatigue, Denies fever(s), Denies headache(s) and Denies weakness Eyes: Eyes: Denies change in vision ENT: Reports Normal hearing present and Denies headache(s) Cardiovascular: Cardiovascular: Denies chest pain, Reports pedal edema and Reports edema Respiratory: Respiratory: Denies cough, Denies dyspnea and Denies wheezing Gastrointestinal: Gastrointestinal: Denies constipation, Denies diarrhea, Denies nausea and Denies vomiting Genitourinary: Genitourinary: Reports no additional female genitourinary complaints Musculoskeletal: Musculoskeletal: Reports as per HPI, Reports numbness, Reports tingling and Reports other (decreased sensation b/l LE ) Integumentary/Breasts: Skin/Breast: Reports as per HPI Neurologic: Reports as per HPI, Reports Normal hearing present and Denies headache(s)
[2020-10-26] MEDS: EPOETIN ALFA-EPBX 10,000 UNITS/ML VIAL 10000 UNITS IV PUSH (10:00)
--- NOTE | 2020-10-26 10:50 | P.PNNP_ITS ---
Progress Note: A&P Assessment and Plan (1) End-stage renal disease on hemodialysis: Code(s): N18.6 - End stage renal disease; Z99.2 - Dependence on renal dialysis Status: Chronic Assessment and Plan: * hemodialysis today and continue //Sunday schedule * follow electrolytes, volume status, and clearance (2) Hyperkalemia: Code(s): E87.5 - Hyperkalemia Status: Acute Assessment and Plan: * resolved * due to missed dialysis treatment prior to admission (3) MRSA bacteremia: Code(s): R78.81 - Bacteremia; B95.62 - Methicillin resistant Staphylococcus aureus infection as the cause of diseases classified elsewhere Status: Acute Assessment and Plan: * blood cultures drawn on admission (10/21) with 2 of 2 bottles growing MRSA * suspected source is foot wound (see #4) * repeat blood cultures (10/23) again growing MRSA in 2 of 2 bottles again * Infectious Disease following -- antibiotic therapy as outlined * repeat blood cultures NGTD on 10/26 * continue current therapy (4) Diabetic ulcer of right foot: Qualifiers: Diabetic foot ulcer location: midfoot Diabetes mellitus type: type 2 Non-pressure ulcer stage: with necrosis of bone Qualified Code(s): E11.621 - Type 2 diabetes mellitus with foot ulcer; L97.414 - Non-pressure chronic ulcer of right heel and midfoot with necrosis of bone Code(s): E11.621 - Type 2 diabetes mellitus with foot ulcer; L97.519 - Non-pressure chronic ulcer of other part of right foot with unspecified severity Status: Acute Assessment and Plan: * complicated by findings of osteomyeltiis (Surgery found that there is an area laterally with bone exposure) * foot x-ray (10/25/20) showing osteomyelitis involving 5th metatarsal - possible source of MRSA bacteremia/positive blood cultures * wound vac in place - patient refusing right 5th metatarsal amputation * Surgery and Orthopedics following (5) Hypertension: Onset Date: Unknown Qualifiers: Hypertension type: essential hypertension Qualified Code(s): I10 - Essential (primary) hypertension Code(s): I10 - Essential (primary) hypertension Status: Chronic Assessment and Plan: * reasonable control at this time * suspect pain issue may cause some fluctuations * follow trend of parameters (6) Anemia: Onset Date: Unknown Code(s): D64.9 - Anemia, unspecified Status: Chronic Assessment and Plan: * due to ESRD and complicated by recent hospitalizations and infections * Epogen with HD * follow trend of H/H (7) Insulin dependent type 2 diabetes mellitus: Code(s): E11.9 - Type 2 diabetes mellitus without complications; 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 Subjective Date/time seen: 10/26/20 10:50 Tolerating dialysis treatment at the time of my visit (seen on HD at ~ 10:30AM); issues with confusion and hallucinations (due to infections?); pain control seems adequate; no events/issues overnight or earlier this AM. Exam Narrative: General: WD/WN female in NAD Heart: normal S1 and S2; no rub Lungs: decreased at bases Abdomen: soft, nontender, nondistended, positive bowel sounds Extremities: no cyanosis or clubbing; no edema Skin: right foot wound with wound vac in place Objective Data Vital Signs Vital Signs:
--- NOTE | 2020-10-26 10:50 | PM.PNNEP ---
Progress Note: A&P Assessment and Plan (1) End-stage renal disease on hemodialysis: Code(s): N18.6 - End stage renal disease; Z99.2 - Dependence on renal dialysis Status: Chronic Assessment and Plan: hemodialysis today and continue //Sunday schedule follow electrolytes, volume status, and clearance (2) Hyperkalemia: Code(s): E87.5 - Hyperkalemia Status: Acute Assessment and Plan: resolved due to missed dialysis treatment prior to admission (3) MRSA bacteremia: Code(s): R78.81 - Bacteremia; B95.62 - Methicillin resistant Staphylococcus aureus infection as the cause of diseases classified elsewhere Status: Acute Assessment and Plan: blood cultures drawn on admission (10/21) with 2 of 2 bottles growing MRSA suspected source is foot wound (see #4) repeat blood cultures (10/23) again growing MRSA in 2 of 2 bottles again Infectious Disease following -- antibiotic therapy as outlined repeat blood cultures NGTD on 10/26 continue current therapy (4) Diabetic ulcer of right foot: Qualifiers: Diabetic foot ulcer location: midfoot Diabetes mellitus type: type 2 Non-pressure ulcer stage: with necrosis of bone Qualified Code(s): E11.621 - Type 2 diabetes mellitus with foot ulcer; L97.414 - Non-pressure chronic ulcer of right heel and midfoot with necrosis of bone Code(s): E11.621 - Type 2 diabetes mellitus with foot ulcer; L97.519 - Non-pressure chronic ulcer of other part of right foot with unspecified severity Status: Acute Assessment and Plan: complicated by findings of osteomyeltiis (Surgery found that there is an area laterally with bone exposure) foot x-ray (10/25/20) showing osteomyelitis involving 5th metatarsal - possible source of MRSA bacteremia/positive blood cultures wound vac in place - patient refusing right 5th metatarsal amputation Surgery and Orthopedics following (5) Hypertension: Onset Date: Unknown Qualifiers: Hypertension type: essential hypertension Qualified Code(s): I10 - Essential (primary) hypertension Code(s): I10 - Essential (primary) hypertension Status: Chronic Assessment and Plan: reasonable control at this time suspect pain issue may cause some fluctuations follow trend of parameters (6) Anemia: Onset Date: Unknown Code(s): D64.9 - Anemia, unspecified Status: Chronic Assessment and Plan: due to ESRD and complicated by recent hospitalizations and infections Epogen with HD follow trend of H/H (7) Insulin dependent type 2 diabetes mellitus: Code(s): E11.9 - Type 2 diabetes mellitus without complications; 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 Subjective Date/time seen: 10/26/20 10:50 Tolerating dialysis treatment at the time of my visit (seen on HD at ~ 10:30AM); issues with confusion and hallucinations (due to infections?); pain control seems adequate; no events/issues overnight or earlier this AM. Exam Narrative: General: WD/WN female in NAD Heart: normal S1 and S2; no rub Lungs: decreased at bases Abdomen: soft, nontender, nondistended, positive bowel sounds Extremities: no cyanosis or clubbing; no edema Skin: right foot wound with wound vac in place Objective Data Vital Signs Vital Signs: Vital Signs Temp Pulse Resp BP Pulse Ox 10/26/20 09:30 36.7 C 69 18 154/83 H 10/26/20 09:03 64 10/26/20 00:00 36.7 C 66 18 117/46 L 94 10/25/20 22:00 37.1 C 69 18 131/53 L 97 10/25/20 20:53 72 10/25/20 20:00 93 10/25/20 14:00 36.4 C L 72 20 122/74 96 Intake/Output Intake/Output: Intake & Output 10/23/20 10/24/20 10/25/20 10/26/20 23:59 23:59 23:59 23:59 Intake Total 1080 1610 1050 950 Output Total 3000 0 Balance -1920 1610 1050 95
--- NOTE | 2020-10-26 12:32 | PCOTNOTE ---
Patient in dialysis, will attempt again later to see for OT.
--- NOTE | 2020-10-26 13:23 | PCPTNOTE ---
The patient treatment was not able to be completed today due to patient out of room for dialysis. Will plan to continue treatment per plan of care.
--- NOTE | 2020-10-26 14:39 | PM.IMPN ---
Progress Note: A&P Assessment and Plan (1) MRSA bacteremia: Code(s): R78.81 - Bacteremia; B95.62 - Methicillin resistant Staphylococcus aureus infection as the cause of diseases classified elsewhere Status: Acute Assessment and Plan: Patient had blood cultures drawn on admission (10/21) with 2 of 2 bottles growing MRSA. Likely source is foot wound. Started on Primaxin and vancomycin for diabetic foot wound. Repeat blood cultures (10/23) again growing MRSA in 2of2 bottles. Infectious Disease following and appreciate their input. Repeat BCx. May not be able to clear due to foot infection. (2) Missed dialysis: Status: Acute Assessment and Plan: The patient has been having issues getting to dialysis and reports a 40 lb weight gain recently. She has had HD here. Continue TTS schedule. Plan for SNF at discharge (3) Electrolyte abnormality: Code(s): E87.8 - Other disorders of electrolyte and fluid balance, not elsewhere classified Status: Acute Assessment and Plan: Including hyperkalemia (5.8) and hyponatremia (125), likely due to missed dialysis and volume overload. Repeat BMP showing normal potassium. Sodium up to 128 and stable. Cortisol level 55 but better on repeat at 31. [place] related to the ongoing infection. Follow (4) End-stage renal disease on hemodialysis: Code(s): N18.6 - End stage renal disease; Z99.2 - Dependence on renal dialysis Status: Acute Assessment and Plan: Plan is as detailed above. Nephrology on board for inpatient hemodialysis (5) Leukocytosis: Code(s): D72.829 - Elevated white blood cell count, unspecified Status: Acute Assessment and Plan: [place] related to the positive BCx. WBC 15.5K on admission now higher. Continue to follow. (6) Elevated LFTs: Code(s): R79.89 - Other specified abnormal findings of blood chemistry Status: Acute Assessment and Plan: Mild elevation in AST that has normalized. AP appears to be chronically elevated but trending down now. TB elevated to 2.2 on admission and now 1.6 on repeat. Abdominal exam is benign. Follow periodically. (7) Generalized weakness: Code(s): R53.1 - Weakness Status: Acute Assessment and Plan: Likely a combination of all the above. Continue PT/OT (8) Diabetic ulcer of right foot: Qualifiers: Diabetic foot ulcer location: midfoot Diabetes mellitus type: type 2 Non-pressure ulcer stage: with necrosis of bone Qualified Code(s): E11.621 - Type 2 diabetes mellitus with foot ulcer; L97.414 - Non-pressure chronic ulcer of right heel and midfoot with necrosis of bone Code(s): E11.621 - Type 2 diabetes mellitus with foot ulcer; L97.519 - Non-pressure chronic ulcer of other part of right foot with unspecified severity Status: Acute Assessment and Plan: Wound VAC recently changed. GenSurg found that there is an area laterally with bone exposure concerning now for osteomyelitis. Foot xray yesterday showing osteomyelitis involving the 5th metatarsal. Amputation discussed. Could be source of MRSA and wh her BCx persistently positive. Appreciate GenSurg input. 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 The patient's blood glucose was reviewed on 10/26 Glucose remains very well controlled. She did refuse her Lantus again last night. Continue AccuCheks covering with sliding scale. Hypoglycemia protocol available as needed. Continue basal insulin but decrease dose by half (10) Chronic anemia: Code(s): D64.9 - Anemia, unspecified Status: Acute Assessment and Plan: Chronic macrocytic anemia which is stable with a hemoglobin in the 9 range. Continue Epoetin. (11) Hypertension: Onset
[2020-10-26 14:52] LABS: Glucose Point of Care 117 mg/dl (65-105)
[2020-10-26 17:58] LABS: Glucose Point of Care 184 mg/dl (65-105)
[2020-10-26] MEDS: INSULIN GLARGINE (*BKC) 100 UNITS/ML 18 UNITS SUB-Q (20:40)
[2020-10-26 21:42] LABS: Vancomycin Random 13.4 ug/mL (10-20)
[2020-10-27 00:11] LABS: Glucose Point of Care 209 mg/dl (65-105)
[2020-10-27 02:17] VITALS: TEMP 36.8
[2020-10-27] MEDS: ACETAMINOPHEN 500 MG TABLET 1000 MG PO ×2 (02:17→13:50)
[2020-10-27] MEDS: SUCRALFATE SUSP 100 MG/ML 10 ML UDC 1000 MG PO ×4 (05:37→20:50)
[2020-10-27 06:37] LABS: Hematocrit 27.7 % (37.0-47.0); Hemoglobin 8.8 g/dL (12.0-15.0); Mean Corpuscular HGB Conc 31.8 g/dl (32-36); Mean Corpuscular Volume 100.7 fl (80-100); Mean Platelet Volume 10.3 fl (7.4-10.4); Platelet Count Result 329 k/mm3 (150-375); Red Blood Count 2.75 M/mm3 (4.2-5.4); Red Cell Distribution Width 16.9 % (11.5-14.5); White Blood Count 22.4 K/mm3 (4.5-10.0)
[2020-10-27 07:16] LABS: Albumin Level 2.5 g/dL (3.5-5.1); Anion Gap 9 mmol/L (8-16); Blood Urea Nitrogen 35 mg/dL (7-17); Calcium 8.7 mg/dL (8.4-10.2); Carbon Dioxide 25 mmol/L (22-30); Chloride 97 mmol/L (98-107); Estimated CRCL calculation 16 ml/min; Estimated Glomerular Filt Rate 12; Glucose 147 mg/dL (65-110); Phosphorus 2.9 mg/dL (2.5-4.5); Potassium 4.1 mmol/L (3.4-5.0); Sodium 131 mmol/L (137-145)
[2020-10-27 07:20] LABS: Band Neutrophils Percent 3 % (0-6); Eosinophils Absolute Manual 0.67 K/mm3 (0.02-0.5); Eosinophils Percent Manual 3 % (0-4); Lymphocytes Absolute Manual 1.34 K/mm3 (1.1-4.5); Metamyelocytes Percent 1 %; Monocytes Absolute Manual 0.67 K/mm3 (0.1-0.90); Monocytes Percent Manual 3 % (3-9); Neutrophils Absolute Manual 19.48 K/mm3 (1.7-7.2); Neutrophils Percent Manual 84 % (46-73); Total Cells Counted 100
[2020-10-27 07:21] LABS: Hypochromasia 2+ (NORMAL); Platelet Estimate Adequate (Adequate)
[2020-10-27 09:06] LABS: Glucose Point of Care 105 mg/dl (65-105)
[2020-10-27 09:39] VITALS: PULSE 64
[2020-10-27] MEDS: APIXABAN 2.5 MG TABLET PO (09:39)
[2020-10-27] MEDS: carvediloL 25 MG TABLET PO ×2 (09:39→20:51)
[2020-10-27] MEDS: busPIRone HCL 5 MG TABLET 15 MG PO ×2 (09:39→18:14)
[2020-10-27] MEDS: FAMOTIDINE 20 MG TABLET PO (09:39)
[2020-10-27] MEDS: buPROPion HCL SR (12 HR) 150 MG TAB PO (09:39)
[2020-10-27] MEDS: ATORVASTATIN 20 MG TABLET PO (09:39)
[2020-10-27] MEDS: amLODIPine BESYLATE 5 MG TABLET 10 MG PO (09:39)
[2020-10-27] MEDS: allopurinoL 100 MG TABLET PO (09:40)
[2020-10-27] MEDS: CALCIUM ACETATE 667 MG TABLET PO ×3 (09:40→18:15)
[2020-10-27] MEDS: LACTIC ACID 12% LOTION 225 BTL 1 APPLIC TOPICAL (11:10)
[2020-10-27] MEDS: EUCERIN CREAM 120 GM JAR 1 APPLIC TOPICAL ×2 (11:10→18:15)
[2020-10-27] MEDS: TOLNAFTATE 1% POWDER 45 GM BTL 1 APPLIC TOPICAL ×2 (11:10→20:51)
--- NOTE | 2020-10-27 11:25 | PCNFU ---
Nutrition Follow-Up Complete: Increased protein needs related to increased demands for healing and hemodialysis as evidenced by unhealed wounds with estimated needs at 100 grams protein per day. Goal: Patient to consume 75% of meals/supplements or greater. Patient is progressing towards goal. We will continue current goal. Pt current nutrition is Renal Dialysis diet with Doug BID. Last recorded weight is 121.7 kg, up from 120.5 kg on admit. Bowel Motility:+BM reported 10/25 Labs Reviewed:Glu 147,BUN 35,Cr 3.7,Na 131,Alb 2.5,Hct 27.7, Hgb 8.8 Meds Noted:Lantus,Carafate, Vanco,Coreg,Pepcid, Phoslo, Eliquis,Lipitor. Additional Notes:Patient seen today for nutrition follow up. Patient had breakfast in front of her today, she was drinking her coffee. Oral intake has been good. Skin: wound vac in place on right foot. Right heel deep tissue. Agree with diet orders. Monitoring: Follow up every 5 days.
[2020-10-27 11:44] LABS: Glucose Point of Care 115 mg/dl (65-105)
[2020-10-27 11:47] VITALS: PULSE 59; O2SAT 94
--- NOTE | 2020-10-27 12:41 | PM.IMPN ---
Progress Note: A&P Assessment and Plan (1) MRSA bacteremia: Code(s): R78.81 - Bacteremia; B95.62 - Methicillin resistant Staphylococcus aureus infection as the cause of diseases classified elsewhere Status: Acute Assessment and Plan: Patient had blood cultures drawn on admission (10/21) with 2 of 2 bottles growing MRSA. Likely source is foot wound. Started on Primaxin and vancomycin for diabetic foot wound. Repeat blood cultures (10/23) again growing MRSA in 2of2 bottles. Infectious Disease following and appreciate their input. Repeat BCx 10/26 pending. Primaxin stopped 10/27. Continue Vanco for now. May not be able to clear due to foot infection. (2) Missed dialysis: Status: Acute Assessment and Plan: The patient has been having issues getting to dialysis and reports a 40 lb weight gain recently. She has had HD here and close to dry weight. Off O2 now. Continue TTS schedule. Plan for SNF at discharge (3) Electrolyte abnormality: Code(s): E87.8 - Other disorders of electrolyte and fluid balance, not elsewhere classified Status: Acute Assessment and Plan: Including hyperkalemia (5.8) and hyponatremia (125), likely due to missed dialysis and volume overload. Repeat BMP showing normal potassium. Sodium up to 131. Cortisol level 55 but better on repeat at 31. [place] related to the ongoing infection. Follow (4) End-stage renal disease on hemodialysis: Code(s): N18.6 - End stage renal disease; Z99.2 - Dependence on renal dialysis Status: Acute Assessment and Plan: Plan is as detailed above. Nephrology on board for inpatient hemodialysis (5) Leukocytosis: Code(s): D72.829 - Elevated white blood cell count, unspecified Status: Acute Assessment and Plan: [place] related to the positive BCx. WBC 15.5K on admission now climbing to 22K. Continue to follow. (6) Elevated LFTs: Code(s): R79.89 - Other specified abnormal findings of blood chemistry Status: Acute Assessment and Plan: Mild elevation in AST that has normalized. AP appears to be chronically elevated but trending down now (related to osteo?). TBili elevated to 2.2 on admission and now 1.6 on repeat. Abdominal exam is benign. Follow periodically. (7) Diabetic ulcer of right foot: Qualifiers: Diabetes mellitus type: type 2 Diabetic foot ulcer location: midfoot Non-pressure ulcer stage: with necrosis of bone Qualified Code(s): E11.621 - Type 2 diabetes mellitus with foot ulcer; L97.414 - Non-pressure chronic ulcer of right heel and midfoot with necrosis of bone Code(s): E11.621 - Type 2 diabetes mellitus with foot ulcer; L97.519 - Non-pressure chronic ulcer of other part of right foot with unspecified severity Status: Acute Assessment and Plan: GenSurg found that there is an area laterally with bone exposure concerning now for osteomyelitis. Foot xray 10/25 showing osteomyelitis involving the 5th metatarsal. Amputation discussed. Could be source of MRSA and with her persistently positive BCx. Wound VAC in place. Appreciate GenSurg input. (8) Generalized weakness: Code(s): R53.1 - Weakness Status: Acute Assessment and Plan: Likely a combination of all the above. Continue PT/OT (9) Insulin dependent type 2 diabetes mellitus: Code(s): E11.9 - Type 2 diabetes mellitus without complications; Z79.4 - [facility] (current) use of insulin Status: Acute Assessment and Plan: A1c in August was 8.9%. The patient's blood glucose was reviewed on 10/27 Glucose remains very well controlled. She did agree to take her Lantus last night and glucose this morning was 147. Continue AccuCheks covering with sliding scale. Hypoglycemia protocol available as needed. Continue basal insulin at current dose (10) Chronic anemia: Code(s): D64.9 - Anemia, unspecified Status: Acute Assessment and Plan: [place]
[2020-10-27 14:00] VITALS: BP 119/54; PULSE 61; RESP 24; TEMP 36.3; O2SAT 93
--- NOTE | 2020-10-27 14:47 | PM.PNGS ---
Progress Note: A&P Assessment and Plan (1) Diabetic ulcer of right foot: Qualifiers: Diabetic foot ulcer location: midfoot Diabetes mellitus type: type 2 Non-pressure ulcer stage: with necrosis of bone Qualified Code(s): E11.621 - Type 2 diabetes mellitus with foot ulcer; L97.414 - Non-pressure chronic ulcer of right heel and midfoot with necrosis of bone Code(s): E11.621 - Type 2 diabetes mellitus with foot ulcer; L97.519 - Non-pressure chronic ulcer of other part of right foot with unspecified severity Status: Acute Assessment and Plan: Appreciate orthopedic consultation on Sunday/ Sunday in order to consider further surgery due to possible osteomyelitis. (2) Venous stasis dermatitis of both lower extremities: Code(s): I87.2 - Venous insufficiency (chronic) (peripheral) Status: Acute Assessment and Plan: Lactic acid cream to help continued improvement in the patient's skin flaking with venous stasis ulceration. She has only minor open wounds that we will continue to treat as needed in the hospital. (3) Right knee pain: Code(s): M25.561 - Pain in right knee Status: Acute Assessment and Plan: unknown etiology but most likely chronic arthritis (4) Chronic kidney failure: Code(s): N18.9 - Chronic kidney disease, unspecified Status: Acute Assessment and Plan: longstanding on dialysis (5) Weakness: Code(s): R53.1 - Weakness Status: Acute Assessment and Plan: Most likely secondary to her current known sepsis with MRSA (6) Acute hyperkalemia: Code(s): E87.5 - Hyperkalemia Status: Acute Assessment and Plan: improved with dialysis (7) Grade II diastolic dysfunction: Code(s): I51.9 - Heart disease, unspecified Status: Chronic (8) Electrolyte abnormality: Code(s): E87.8 - Other disorders of electrolyte and fluid balance, not elsewhere classified Status: Acute Assessment and Plan: improved with dialysis (9) Missed dialysis: Status: Acute (10) Insulin dependent type 2 diabetes mellitus: Code(s): E11.9 - Type 2 diabetes mellitus without complications; Z79.4 - watermaster (current) use of insulin Status: Acute Assessment and Plan: as per hospitalist notes, improved. (11) Peripheral arterial disease: Onset Date: Unknown Code(s): I73.9 - Peripheral vascular disease, unspecified Status: Acute Assessment and Plan: Previous noninvasive study show adequate blood flow to the foot level but noncompressible vessels toward the toes (12) Splenic infarction: Onset Date: Unknown Code(s): D73.5 - Infarction of spleen Status: Acute Assessment and Plan: unknown etiology on Eliquis (13) Hypertension: Onset Date: Unknown Qualifiers: Hypertension type: essential hypertension Qualified Code(s): I10 - Essential (primary) hypertension Code(s): I10 - Essential (primary) hypertension Status: Chronic Assessment and Plan: Continue current meds Additional Plan I had a thorough discussion with the patient today regarding the recommendation for a below the knee amputation on the right by her orthopedic surgeon yesterday. She states that she has not actually walked in 3 years. She is basically wheelchair bound and I discussed with her that if she decides not to have an amputation that the infection that Dr. Carcamo has discussed with her today, which includes 3 positive blood cultures for MRSA, may be life-threatening to her. She will need to decide between whether or not she would like to continue to live as she has been in a wheelchair and feeling more back to normal with an amputation or possibly have a high risk of mortality over the next month due to osteomyelitis and continuing infection from the bone that is now exposed in the lateral part of her right foot wound yoni
--- NOTE | 2020-10-27 16:05 | PM.PNNEP ---
Progress Note: A&P Assessment and Plan (1) End-stage renal disease on hemodialysis: Code(s): N18.6 - End stage renal disease; Z99.2 - Dependence on renal dialysis Status: Chronic Assessment and Plan: hemodialysis tomorrow and continue //Sunday schedule follow electrolytes, volume status, and clearance (2) Hyperkalemia: Code(s): E87.5 - Hyperkalemia Status: Acute Assessment and Plan: resolved due to missed dialysis treatment prior to admission (3) MRSA bacteremia: Code(s): R78.81 - Bacteremia; B95.62 - Methicillin resistant Staphylococcus aureus infection as the cause of diseases classified elsewhere Status: Acute Assessment and Plan: blood cultures drawn on admission (10/21) with 2 of 2 bottles growing MRSA suspected source is foot wound (see #4) repeat blood cultures (10/23) again growing MRSA in 2 of 2 bottles Infectious Disease following -- antibiotic therapy as outlined repeat blood cultures NGTD on 10/26 continue current therapy (4) Diabetic ulcer of right foot: Qualifiers: Diabetic foot ulcer location: midfoot Diabetes mellitus type: type 2 Non-pressure ulcer stage: with necrosis of bone Qualified Code(s): E11.621 - Type 2 diabetes mellitus with foot ulcer; L97.414 - Non-pressure chronic ulcer of right heel and midfoot with necrosis of bone Code(s): E11.621 - Type 2 diabetes mellitus with foot ulcer; L97.519 - Non-pressure chronic ulcer of other part of right foot with unspecified severity Status: Acute Assessment and Plan: complicated by findings of osteomyeltiis (Surgery found that there is an area laterally with bone exposure) foot x-ray (10/25/20) showing osteomyelitis involving 5th metatarsal - possible source of MRSA bacteremia/positive blood cultures wound vac in place - patient refusing right 5th metatarsal amputation Surgery and Orthopedics following (5) Hypertension: Onset Date: Unknown Qualifiers: Hypertension type: essential hypertension Qualified Code(s): I10 - Essential (primary) hypertension Code(s): I10 - Essential (primary) hypertension Status: Chronic Assessment and Plan: reasonable control at this time suspect pain issue may cause some fluctuations follow trend of parameters (6) Anemia: Onset Date: Unknown Code(s): D64.9 - Anemia, unspecified Status: Chronic Assessment and Plan: due to ESRD and complicated by recent hospitalizations and infections Epogen with HD follow trend of H/H (7) Insulin dependent type 2 diabetes mellitus: Code(s): E11.9 - Type 2 diabetes mellitus without complications; Z79.4 - half-way (current) use of insulin Status: Chronic Assessment and Plan: follow accuchecks on SSI and Lanuts Will continue to follow. Subjective Date/time seen: 10/27/20 16:05 Tolerated dialysis treatment yesterday without any issues or problems; pain control seems adequate; no other acute issues/events overnight or earlier this AM; possible surgery tomorrow regarding right foot found by Orthopedic Surgery; no acute distress noted. Exam Narrative: General: WD/WN female in NAD Heart: normal S1 and S2; no rub Lungs: decreased at bases Abdomen: soft, nontender, nondistended, positive bowel sounds Extremities: no cyanosis or clubbing; no edema Skin: right foot wound with wound vac in place Objective Data Vital Signs Vital Signs: Vital Signs Temp Pulse Resp BP Pulse Ox 10/27/20 14:00 36.3 C L 61 24 H 119/54 L 93 10/27/20 11:47 59 L 94 10/27/20 09:39 64 10/27/20 02:17 36.8 C 10/26/20 23:53 36.8 C 69 18 125/54 L 94 10/26/20 20:39 70 10/26/20 20:00 94 Intake/Output Intake/Output: Intake & Output 10/24/20 10/25/20 10/26/20 10/27/20 23:59 23:59 23:59 23:59 Intake Total 1610 1050 1590 2060 Output Total 0 3000 Balance 1610
--- NOTE | 2020-10-27 16:05 | P.PNNP_ITS ---
Progress Note: A&P Assessment and Plan (1) End-stage renal disease on hemodialysis: Code(s): N18.6 - End stage renal disease; Z99.2 - Dependence on renal dialysis Status: Chronic Assessment and Plan: * hemodialysis tomorrow and continue //Sunday schedule * follow electrolytes, volume status, and clearance (2) Hyperkalemia: Code(s): E87.5 - Hyperkalemia Status: Acute Assessment and Plan: * resolved * due to missed dialysis treatment prior to admission (3) MRSA bacteremia: Code(s): R78.81 - Bacteremia; B95.62 - Methicillin resistant Staphylococcus aureus infection as the cause of diseases classified elsewhere Status: Acute Assessment and Plan: * blood cultures drawn on admission (10/21) with 2 of 2 bottles growing MRSA * suspected source is foot wound (see #4) * repeat blood cultures (10/23) again growing MRSA in 2 of 2 bottles * Infectious Disease following -- antibiotic therapy as outlined * repeat blood cultures NGTD on 10/26 * continue current therapy (4) Diabetic ulcer of right foot: Qualifiers: Diabetic foot ulcer location: midfoot Diabetes mellitus type: type 2 Non-pressure ulcer stage: with necrosis of bone Qualified Code(s): E11.621 - Type 2 diabetes mellitus with foot ulcer; L97.414 - Non-pressure chronic ulcer of right heel and midfoot with necrosis of bone Code(s): E11.621 - Type 2 diabetes mellitus with foot ulcer; L97.519 - Non-pressure chronic ulcer of other part of right foot with unspecified severity Status: Acute Assessment and Plan: * complicated by findings of osteomyeltiis (Surgery found that there is an area laterally with bone exposure) * foot x-ray (10/25/20) showing osteomyelitis involving 5th metatarsal - possible source of MRSA bacteremia/positive blood cultures * wound vac in place - patient refusing right 5th metatarsal amputation * Surgery and Orthopedics following (5) Hypertension: Onset Date: Unknown Qualifiers: Hypertension type: essential hypertension Qualified Code(s): I10 - Essential (primary) hypertension Code(s): I10 - Essential (primary) hypertension Status: Chronic Assessment and Plan: * reasonable control at this time * suspect pain issue may cause some fluctuations * follow trend of parameters (6) Anemia: Onset Date: Unknown Code(s): D64.9 - Anemia, unspecified Status: Chronic Assessment and Plan: * due to ESRD and complicated by recent hospitalizations and infections * Epogen with HD * follow trend of H/H (7) Insulin dependent type 2 diabetes mellitus: Code(s): E11.9 - Type 2 diabetes mellitus without complications; Z79.4 - halfway (current) use of insulin Status: Chronic Assessment and Plan: * follow accuchecks * on SSI and Lanuts Will continue to follow. Subjective Date/time seen: 10/27/20 16:05 Tolerated dialysis treatment yesterday without any issues or problems; pain cont rol seems adequate; no other acute issues/events overnight or earlier this AM; possible surgery tomorrow regarding right foot found by Orthopedic Surgery; no acute distress noted. Exam Narrative: General: WD/WN female in NAD Heart: normal S1 and S2; no rub Lungs: decreased at bases Abdomen: soft, nontender, nondistended, positive bowel sounds Extremities: no cyanosis or clubbing; no edema Skin: right foot wound with wound vac in place Objective Data Vital Signs Vital Signs:
--- NOTE | 2020-10-27 16:52 | WPDANESEPP ---
Anes - Eval Pre Procedure Procedure: Operation Date: 10/28/20 12:00 Proposed Procedures p Debridement Right Diabetic Foot Ulcer. Excision Of Osteomylitis - Rios Varma MD Date/Time: 10/27/20 16:52 Pre Op Diagnosis: Right diabetic foot ulcer ,osteomyelitis Patient Data Age: 70 Gender: F Height: 1.57 m Weight: 121.7 kg Last Vital Signs Temp 97.4 F L 10/27/20 14:00 Pulse 61 10/27/20 14:00 Resp 24 H 10/27/20 14:00 BP 119/54 L 10/27/20 14:00 Pulse Ox 93 10/27/20 14:00 Allergies Allergy/AdvReac Type Severity Reaction Status Date / Time No Known Allergies Allergy Mild Verified 10/21/20 10:21 Home Medications Medication Instructions Recorded Confirmed Type bupropion HCl [Wellbutrin SR] 150 mg PO DAILY 05/30/19 10/21/20 History calcium acetate(phosphat bind) 667 mg PO TID 05/30/19 10/21/20 History insulin lispro [Humalog U-100 0 sliding scale dose SUBCUT TID 05/30/19 10/21/20 History Insulin] Eliquis 2.5 mg PO BID 30 Days #60 tablet 07/10/19 10/21/20 Rx Tresiba U-100 Insulin 48 unit SUBCUT HS 09/07/20 10/21/20 History amlodipine 10 mg PO DAILY 09/07/20 10/21/20 History atorvastatin 20 mg PO DAILY 09/07/20 10/21/20 History buspirone 15 mg PO BID 09/07/20 10/21/20 History ammonium lactate [Lac-Hydrin Five] 1 applic TOPICAL QAM #60 g 09/23/20 10/21/20 Rx allopurinol 100 mg PO DAILY 10/21/20 10/21/20 History carvedilol 25 mg PO BID 10/21/20 10/21/20 History Laboratory Tests 10/26/20 10/26/20 10/26/20 17:31 20:39 20:40 WBC RBC Hgb Hct MCV MCH MCHC RDW Plt Count MPV Immature Gran % (Auto) Neut % (Auto) Lymph % (Auto) [place] % (Auto) Eos % (Auto) Baso % (Auto) Lymph # (Auto) [place] # (Auto) Eos # (Auto) Baso # (Auto) Abs Immat Gran (auto) Absolute Neuts (auto) Absolute Nucleated RBC Total Counted Neutrophils % (Manual) Band Neutrophils % Lymphocytes % (Manual) Monocytes % (Manual) Eosinophils % (Manual) Metamyelocytes % Nucleated RBC % Abs Neuts (Manual) Abs Lymphs (Manual) Abs Monocytes (Manual) Absolute Eos (Manual) Platelet Estimate Hypochromasia Sodium Potassium Chloride Carbon Dioxide Anion Gap BUN Creatinine Estim Creat Clear Calc Estimated GFR Glucose POC Capillary Glucose 184 mg/dl H mg/dl 209 mg/dl H mg/dl (65-105) (65-105) Calcium Phosphorus Albumin Random Vancomycin 13.4 ug/mL ug/mL (10-20) 10/27/20 10/27/20 10/27/20 05:57 05:57 09:01 WBC 22.4 K/mm3 H K/mm3 (4.5-10.0) RBC 2.75 M/mm3 L M/mm3 (4.2-5.4) Hgb 8.8 g/dL L g/dL (12.0-15.0) Hct 27.7 % L % (37.0-47.0) MCV 100.7 fl H fl (80-100) MCH 32.0 pg pg (26-34) MCHC 31.8 g/dl L g/dl (32-36) RDW 16.9 % H % (11.5-14.5) Plt Count 329 k/mm3 k/mm3 (150-375) MPV 10.3 fl fl (7.4-10.4) Immature Gran % (Auto) Not Reportable Neut % (Auto) Not Reportable Lymph % (Auto) Not Reportable [place] % (Auto) Not Reportable Eos % (Auto) Not Reportable Baso % (Auto) Not Reportable Lymph # (Auto) Not Reportable [place] # (Auto) Not Reportable Eos # (Auto) Not Reportable Baso # (Auto) Not Reportable Abs Immat Gran (auto) Not Reportable Absolute Neuts (auto) Not Reportable
[2020-10-27 20:51] VITALS: PULSE 64
[2020-10-27 22:00] VITALS: BP 120/53; PULSE 63; RESP 18; TEMP 36.7; O2SAT 94
[2020-10-27] MEDS: INSULIN GLARGINE (*BKC) 100 UNITS/ML 9 UNITS SUB-Q (22:40)
[2020-10-27 23:02] LABS: Glucose Point of Care 123 mg/dl (65-105)
[2020-10-28] VITALS (13 sets, daily range): BP systolic 113–173; BP diastolic 54–102; PULSE 57–80; RESP 16–25; TEMP 36.1–36.9; O2SAT 9–95
[2020-10-28] MEDS: SUCRALFATE SUSP 100 MG/ML 10 ML UDC 1000 MG PO ×2 (06:17→18:36)
[2020-10-28 07:15] LABS: Hematocrit 31.6 % (37.0-47.0); Hemoglobin 9.4 g/dL (12.0-15.0); Mean Corpuscular HGB Conc 29.7 g/dl (32-36); Mean Corpuscular Hemoglobin 31.8 pg (26-34); Mean Corpuscular Volume 106.8 fl (80-100); Mean Platelet Volume 11.4 fl (7.4-10.4); Platelet Count Result 252 k/mm3 (150-375); Red Blood Count 2.96 M/mm3 (4.2-5.4); Red Cell Distribution Width 16.9 % (11.5-14.5); White Blood Count 21.7 K/mm3 (4.5-10.0)
[2020-10-28 07:33] LABS: Albumin Level 2.4 g/dL (3.5-5.1); Anion Gap 12 mmol/L (8-16); Blood Urea Nitrogen 45 mg/dL (7-17); Calcium 8.7 mg/dL (8.4-10.2); Carbon Dioxide 22 mmol/L (22-30); Chloride 94 mmol/L (98-107); Estimated CRCL calculation 14 ml/min; Estimated Glomerular Filt Rate 10; Glucose 80 mg/dL (65-110); Phosphorus 3.3 mg/dL (2.5-4.5); Potassium 4.6 mmol/L (3.4-5.0); Sodium 128 mmol/L (137-145)
[2020-10-28 08:17] LABS: Band Neutrophils Percent 5 % (0-6); Lymphocytes Absolute Manual 0.21 K/mm3 (1.1-4.5); Metamyelocytes Percent 5 %; Monocytes Absolute Manual 0.21 K/mm3 (0.1-0.90); Monocytes Percent Manual 1 % (3-9); Neutrophils Absolute Manual 20.18 K/mm3 (1.7-7.2); Neutrophils Percent Manual 88 % (46-73); Platelet Estimate Adequate (Adequate); Total Cells Counted 100
[2020-10-28 08:18] LABS: Hypochromasia 2+ (NORMAL)
[2020-10-28 08:57] LABS: Glucose Point of Care 85 mg/dl (65-105)
--- NOTE | 2020-10-28 12:57 | PC.NURSE ---
Pt to surgery via specialty bed at 1255. IV SL.
--- NOTE | 2020-10-28 13:15 | WPDANESEPPF ---
Anes - Initial Pre Proc Eval Procedure: Operation Date: 10/28/20 14:00 Proposed Procedures p Debridement Right Diabetic Foot Ulcer. Excision Of Osteomylitis - Rios Varma MD Date/Time: 10/28/20 13:15 Surgeon: Edmundo Frankel DO Pre Op Diagnosis: Right diabetic foot ulcer ,osteomyelitis Patient Data Age: 70 Gender: F Height: 1.57 m Weight: 121.7 kg Last Vital Signs Temp 36.8 C 10/28/20 06:00 Pulse 80 10/28/20 06:00 Resp 18 10/28/20 06:00 BP 140/60 10/28/20 06:00 Pulse Ox 95 10/28/20 06:00 Allergies Allergy/AdvReac Type Severity Reaction Status Date / Time No Known Allergies Allergy Mild Verified 10/21/20 10:21 Home Medications Medication Instructions Recorded Confirmed Type bupropion HCl [Wellbutrin SR] 150 mg PO DAILY 05/30/19 10/21/20 History calcium acetate(phosphat bind) 667 mg PO TID 05/30/19 10/21/20 History insulin lispro [Humalog U-100 0 sliding scale dose SUBCUT TID 05/30/19 10/21/20 History Insulin] Eliquis 2.5 mg PO BID 30 Days #60 tablet 07/10/19 10/21/20 Rx Tresiba U-100 Insulin 48 unit SUBCUT HS 09/07/20 10/21/20 History amlodipine 10 mg PO DAILY 09/07/20 10/21/20 History atorvastatin 20 mg PO DAILY 09/07/20 10/21/20 History buspirone 15 mg PO BID 09/07/20 10/21/20 History ammonium lactate [Lac-Hydrin Five] 1 applic TOPICAL QAM #60 g 09/23/20 10/21/20 Rx allopurinol 100 mg PO DAILY 10/21/20 10/21/20 History carvedilol 25 mg PO BID 10/21/20 10/21/20 History Laboratory Tests 10/27/20 10/28/20 10/28/20 22:38 06:44 06:44 WBC 21.7 K/mm3 H K/mm3 (4.5-10.0) RBC 2.96 M/mm3 L M/mm3 (4.2-5.4) Hgb 9.4 g/dL L g/dL (12.0-15.0) Hct 31.6 % L % (37.0-47.0) MCV 106.8 fl H D fl (80-100) MCH 31.8 pg pg (26-34) MCHC 29.7 g/dl L g/dl (32-36) RDW 16.9 % H % (11.5-14.5) Plt Count 252 k/mm3 k/mm3 (150-375) MPV 11.4 fl H fl (7.4-10.4) Immature Gran % (Auto) Not Reportable Neut % (Auto) Not Reportable Lymph % (Auto) Not Reportable [place] % (Auto) Not Reportable Eos % (Auto) Not Reportable Baso % (Auto) Not Reportable Lymph # (Auto) Not Reportable [place] # (Auto) Not Reportable Eos # (Auto) Not Reportable Baso # (Auto) Not Reportable Abs Immat Gran (auto) Not Reportable Absolute Neuts (auto) Not Reportable Absolute Nucleated RBC Not Reportable Total Counted 100 Neutrophils % (Manual) 88 % H % (46-73) Band Neutrophils % 5 % % (0-6) Lymphocytes % (Manual) 1.0 % L % (18-44) Monocytes % (Manual) 1 % L % (3-9) Metamyelocytes % 5 % % Nucleated RBC % Not Reportable Abs Neuts (Manual) 20.18 K/mm3 H K/mm3 (1.7-7.2) Abs Lymphs (Manual) 0.21 K/mm3 L K/mm3 (1.1-4.5) Abs Monocytes (Manual) 0.21 K/mm3 K/mm3 (0.1-0.90) Platelet Estimate Adequate (Adequate) Hypochromasia 2+ (NORMAL) Sodium 128 mmol/L L mmol/L (137-145) Potassium 4.6 mmol/L mmol/L (3.4-5.0) Chloride 94 mmol/L L mmol/L (98-107) Carbon Dioxide 22 mmol/L mmol/L (22-30) Anion Gap 12 mmol/L mmol/L (8-16) BUN 45 mg/dL H D mg/dL (7-17) Creatinine 4.30 mg/dL H mg/dL (0.7-1.0) Estim Creat Clear Calc 14 ml/min ml/min Estimated GFR 10 L (59 - ) Glucose 80 mg/dL mg/dL (65-110) POC Capillary Glucose 123 mg/dl H mg/dl (65-105) Calcium 8.7 mg/dL mg/dL (8.4-10.2) Phosphorus 3.3 mg/dL mg/dL (2.5-4.5) Albumin 2.4 g/dL L g/dL (3.5-5.1) 10/28/20 08:44 WBC RBC Hgb Hct MCV MCH MCHC RDW Plt Count MPV
[2020-10-28] MEDS: SODIUM CHLORIDE 0.9% IV 500 ML 30 ML IV CONT (13:16)
--- NOTE | 2020-10-28 13:18 | PM.IMPN ---
Progress Note: A&P Assessment and Plan (1) MRSA bacteremia: Code(s): R78.81 - Bacteremia; B95.62 - Methicillin resistant Staphylococcus aureus infection as the cause of diseases classified elsewhere Status: Acute Assessment and Plan: Patient had blood cultures drawn on admission (10/21) with 2 of 2 bottles growing MRSA. Likely source is foot wound. Started on Primaxin and vancomycin for diabetic foot wound. Repeat blood cultures (10/23) again growing MRSA in 2of2 bottles. Infectious Disease following and appreciate their input. Repeat BCx 10/26 NGTD. Primaxin stopped 10/27. Continue Vanco. (2) Missed dialysis: Status: Acute Assessment and Plan: The patient has been having issues getting to dialysis and reports a 40 lb weight gain recently. She has had HD here and close to dry weight. Off O2 now. Continue TTS schedule. Plan for SNF at discharge. (3) Electrolyte abnormality: Code(s): E87.8 - Other disorders of electrolyte and fluid balance, not elsewhere classified Status: Acute Assessment and Plan: Including hyperkalemia (5.8) and hyponatremia (125), likely due to missed dialysis and volume overload. Repeat BMP showing normal potassium but Sodium down to 128. Cortisol level 55 but better on repeat at 31. [place] elevated Cortisol level related to the ongoing infection. Low sodium related to fluid overload? HD today should improve Na level. Follow (4) End-stage renal disease on hemodialysis: Code(s): N18.6 - End stage renal disease; Z99.2 - Dependence on renal dialysis Status: Acute Assessment and Plan: Plan is as detailed above. Nephrology on board for inpatient hemodialysis (5) Leukocytosis: Code(s): D72.829 - Elevated white blood cell count, unspecified Status: Acute Assessment and Plan: WBC 15.5K on admission now climbing to 22K. [place] related to the positive BCx but unclear why this is climbing. No diarrhea. Continue to follow. (6) Elevated LFTs: Code(s): R79.89 - Other specified abnormal findings of blood chemistry Status: Acute Assessment and Plan: Mild elevation in AST that has normalized. AP appears to be chronically elevated but trending down now (related to osteo?). TBili elevated to 2.2 on admission and now 1.6 on repeat. Abdominal exam is benign. Follow periodically. (7) Diabetic ulcer of right foot: Qualifiers: Diabetes mellitus type: type 2 Diabetic foot ulcer location: midfoot Non-pressure ulcer stage: with necrosis of bone Qualified Code(s): E11.621 - Type 2 diabetes mellitus with foot ulcer; L97.414 - Non-pressure chronic ulcer of right heel and midfoot with necrosis of bone Code(s): E11.621 - Type 2 diabetes mellitus with foot ulcer; L97.519 - Non-pressure chronic ulcer of other part of right foot with unspecified severity Status: Acute Assessment and Plan: GenSurg found that there is an area laterally with bone exposure concerning now for osteomyelitis. Foot xray 10/25 showing osteomyelitis involving the 5th metatarsal. Amputation discussed. Could be source of MRSA and with her persistently positive BCx. Wound VAC in place. GenSurg discussed with Ortho who is planning on taking the patient to the OR today for debridement. Appreciate GenSurg and Ortho input. (8) Generalized weakness: Code(s): R53.1 - Weakness Status: Acute Assessment and Plan: Likely multifactorial related to above. Continue PT/OT (9) Insulin dependent type 2 diabetes mellitus: Code(s): E11.9 - Type 2 diabetes mellitus without complications; Z79.4 - group home (current) use of insulin Status: Acute Assessment and Plan: A1c 6.6%. The patient's blood glucose was reviewed on 10/28. Glucose remains very well controlled. We held Lantus and only gave half dose last night due to being NPO. Continue AccuCheks covering with sliding scale. Hypoglycemia protocol available
[2020-10-28 13:43] LABS: Glucose Point of Care 75 mg/dl (65-105)
--- NOTE | 2020-10-28 13:46 | WPDHPUPDATE1 ---
History and Physical Update Update Date/Time: 10/28/20 13:46 History and Physical has been reviewed, including an updated exam of the patient. There are NO changes in the patient's condition. Risks, benefits, and alternatives have been discussed and questions answered. Patient agrees to proceed with procedure.
--- NOTE | 2020-10-28 13:46 | PM.PNORT ---
Progress Note: A&P Assessment and Plan (1) Diabetic ulcer of right foot: Qualifiers: Diabetic foot ulcer location: midfoot Diabetes mellitus type: type 2 Non-pressure ulcer stage: with necrosis of bone Qualified Code(s): E11.621 - Type 2 diabetes mellitus with foot ulcer; L97.414 - Non-pressure chronic ulcer of right heel and midfoot with necrosis of bone Code(s): E11.621 - Type 2 diabetes mellitus with foot ulcer; L97.519 - Non-pressure chronic ulcer of other part of right foot with unspecified severity Status: Acute Assessment and Plan: Patient seen and examined. Chart and history reviewed. Purulence drainage noted from the exposed 5th metatarsal at the time of wound VAC dressing change yesterday. Discussed in detail with the patient. Conservative treatment, operative treatment versus amputation discussed. Risks, benefits and alternatives reviewed. Questions answered. Patient like to proceed with debridement and attempted salvage of the foot. Discussed nonoperative and operative treatment options with the patient. Risks and benefits of each as well as alternatives were reviewed. All of the patient's questions were answered. The risks of surgery reviewed including but not limited to: Neurovascular damage, wound complication, infection, blood clot, pulmonary embolus, stroke, myocardial infarction, and anesthetic risks up to and including . Continued pain and possible dysfunction were explained. Specific risks of the procedure including later recurrence of deformity. No guarantees were offered. If hardware used, discussed risk of failure/ breakage and possible need for removal. If complications occur, the patient understands the need for further treatment, possible further surgery. Patient verbalizes understanding and wishes to proceed. PLAN: Debridement right diabetic foot ulcer, excision osteomyelitis. 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 (5) Neuropathy due to type 2 diabetes mellitus: Code(s): E11.40 - Type 2 diabetes mellitus with diabetic neuropathy, unspecified Status: Acute (6) Venous stasis dermatitis of both lower extremities: Code(s): I87.2 - Venous insufficiency (chronic) (peripheral) Status: Acute Subjective Subjective Date/Time Seen: 10/28/20 8:46 Principal diagnosis: right diabetic foot ulcer with osteomyelitis Interval history: 70-year-old woman. Awake and alert. Right diabetic foot. At wound VAC dressing change yesterday purulence noted from the base of the 5th metatarsal. Discussed with patient options for treatment. She would like to proceed with surgical debridement. She has declined amputation at this time. Review of Systems Constitutional: Constitutional: Reports no additional constitutional complaints, Denies chills, Denies fatigue, Denies fever(s), Denies headache(s) and Denies weakness Eyes: Eyes: Denies change in vision ENT: Reports Normal hearing present and Denies headache(s) Cardiovascular: Cardiovascular: Denies chest pain, Reports pedal edema and Reports edema Respiratory: Respiratory: Denies cough, Denies dyspnea and Denies wheezing Gastrointestinal: Gastrointestinal: Denies constipation, Denies diarrhea, Denies nausea and Denies vomiting Genitourinary: Genitourinary: Reports no additional female genitourinary complaints Musculoskeletal: Musculoskeletal: Reports as per HPI, Report
[2020-10-28 14:46] LABS: Glucose Point of Care 77 mg/dl (65-105)
--- NOTE | 2020-10-28 15:06 | W.PM.PROC2 ---
Procedure Note - Detailed Date of Procedure 10/28/20 Pre-op Diagnosis Right diabetic foot ulcer ,osteomyelitis Post-op Diagnosis same Procedure Performed Excision rt foot osteo, excisional debridement debride dfu, 13 x 3.5 cm Surgeon Rios Varma MD System Development Engineer 1st orthotics assistant Anesthesia MAC Indications 70 yo with rt DFU, now with osteo. Declines amputation. Presents for debridement Findings Diabetic foot ulcer measures 13 cm medial to lateral 3.5 cm anterior to posterior and 1 cm depth. Deep tissue injury the plantar posterior aspect the heel with skin intact approximately 3 cm diameter. Gross purulence base of the 5th metatarsal with appearance of osteomyelitis. Cultures taken from the 5th metatarsal. Description of Procedure What was done: Patient identified in the preoperative holding. Informed consent given. Operative extremity marked. Patient received intravenous antibiotics. Patient brought to the operating room where underwent conscious sedation by anesthesia team. Positioned supine on operating room table. Time-out performed confirming the patient, site of the surgery and the plan. Right foot prepped and draped usual sterile surgical fashion using Betadine prep solution. The osteomyelitis was addressed 1st. There was gross purulence at the base of the 5th metatarsal on the plantar aspect. The bone was noted to be soft. Fifteen blade knife was used to dissect the base of the 5th metatarsal from the soft tissues. Rongeur used to remove the base of the 5th metatarsal. Gross purulence identified and cultured. Curette used to debride the remaining bone back to good stable healthy-appearing level. Wound thoroughly irrigated with antibiotic solution. Diabetic ulcer then addressed. This measured 13 cm from medial to lateral and 3.5 cm in width. Fifteen blade knife used to sharply excise skin, subcutaneous tissue and muscle that was devitalized or infected from the wound. Rongeur used to remove larger pieces of tissue which were excised and passed off. Good healthy bleeding tissue in the wound ensured. The wound thoroughly irrigated with antibiotic solution. Hemostasis was controlled with local pressure. Sterile gauze packed into the wound. Sterile dressing applied. The patient was then woken from anesthesia, extubated and taken to the recovery room in stable condition. All sponge, needle, instrument counts were correct at the end of the case. Estimated Blood Loss 15 Tourniquet Time 0 Urine Output 0 Drains No Packing Yes (Dry sterile gauze) Pathology yes (cultures right foot 5th met) Complications None Condition stable Disposition PACU
--- NOTE | 2020-10-28 15:37 | SUR.PHASEI ---
Attempted to wean patient off of simple mask, applied nasal canula, unable to maintain oxygen sat >92%, reapplied simple mask
[2020-10-28 17:18] LABS: Glucose Point of Care 81 mg/dl (65-105)
[2020-10-28] MEDS: EUCERIN CREAM 120 GM JAR 1 APPLIC TOPICAL (18:35)
[2020-10-28] MEDS: APIXABAN 2.5 MG TABLET PO (18:35)
[2020-10-28] MEDS: DOCUSATE SODIUM 100 MG CAPSULE PO (18:35)
[2020-10-28] MEDS: CALCIUM ACETATE 667 MG TABLET PO (18:37)
[2020-10-28] MEDS: buPROPion HCL SR (12 HR) 150 MG TAB PO (18:38)
[2020-10-28] MEDS: allopurinoL 100 MG TABLET PO (18:38)
[2020-10-28] MEDS: busPIRone HCL 5 MG TABLET 15 MG PO (18:38)
[2020-10-28] MEDS: ATORVASTATIN 20 MG TABLET PO (18:39)
[2020-10-28] MEDS: amLODIPine BESYLATE 5 MG TABLET 10 MG PO (18:39)
--- NOTE | 2020-10-28 19:01 | PC.NURSE ---
Pt returned to floor at 1645. pt on 4 L 02 NC; weaned to 3L with 02 sat of 93. Pt alert to self, denies pain.
[2020-10-28 20:07] LABS: Vancomycin Random 21.1 ug/mL (10-20)
[2020-10-29] VITALS (20 sets, daily range): BP systolic 114–153; BP diastolic 44–80; PULSE 57–70; RESP 14–18; TEMP 35.9–37.2; O2SAT 92–97
--- NOTE | 2020-10-29 07:21 | PCPTNOTE ---
The patient treatment was not able to be completed on 10/28/2020 due to patient having surgical procedure. Will plan to continue treatment per plan of care.
[2020-10-29 08:30] LABS: Glucose Point of Care 87 mg/dl (65-105)
[2020-10-29] MEDS: ATORVASTATIN 20 MG TABLET PO (09:37)
[2020-10-29] MEDS: busPIRone HCL 5 MG TABLET 15 MG PO ×2 (09:39→17:25)
[2020-10-29] MEDS: APIXABAN 2.5 MG TABLET PO ×2 (09:39→17:26)
[2020-10-29] MEDS: DOCUSATE SODIUM 100 MG CAPSULE PO ×2 (09:39→17:26)
[2020-10-29] MEDS: allopurinoL 100 MG TABLET PO (09:40)
[2020-10-29] MEDS: FAMOTIDINE 20 MG TABLET PO (09:40)
[2020-10-29] MEDS: amLODIPine BESYLATE 5 MG TABLET 10 MG PO (09:41)
[2020-10-29] MEDS: buPROPion HCL SR (12 HR) 150 MG TAB PO (09:41)
[2020-10-29] MEDS: CALCIUM ACETATE 667 MG TABLET PO ×2 (09:41→17:25)
[2020-10-29] MEDS: carvediloL 25 MG TABLET PO ×2 (09:43→23:01)
[2020-10-29] MEDS: SUCRALFATE SUSP 100 MG/ML 10 ML UDC 1000 MG PO ×4 (09:44→23:01)
[2020-10-29] MEDS: TOLNAFTATE 1% POWDER 45 GM BTL 1 APPLIC TOPICAL ×2 (09:45→23:03)
[2020-10-29] MEDS: LACTIC ACID 12% LOTION 225 BTL 1 APPLIC TOPICAL (09:45)
[2020-10-29] MEDS: EUCERIN CREAM 120 GM JAR 1 APPLIC TOPICAL ×2 (09:46→17:26)
--- NOTE | 2020-10-29 10:38 | PM.PNORT ---
Progress Note: A&P Assessment and Plan (1) Osteomyelitis of foot, right, acute: Code(s): M86.171 - Other acute osteomyelitis, right ankle and foot Status: Acute Assessment and Plan: postoperative day 1 right foot debridement and excision of osteomyelitis. Wound appears stable at this time. Plan for wound VAC re-application with wound VAC dressing changes 2 to 3 times per week. Continue with protective weight-bearing right foot. Awaiting culture results. Continue intravenous antibiotics. Discussed with patient and family indications for amputation and failed wound healing. (2) Diabetic ulcer of right foot: Qualifiers: Diabetic foot ulcer location: midfoot Diabetes mellitus type: type 2 Non-pressure ulcer stage: with necrosis of bone Qualified Code(s): E11.621 - Type 2 diabetes mellitus with foot ulcer; L97.414 - Non-pressure chronic ulcer of right heel and midfoot with necrosis of bone Code(s): E11.621 - Type 2 diabetes mellitus with foot ulcer; L97.519 - Non-pressure chronic ulcer of other part of right foot with unspecified severity Status: Acute (3) Neuropathy due to type 2 diabetes mellitus: Code(s): E11.40 - Type 2 diabetes mellitus with diabetic neuropathy, unspecified Status: Acute Subjective Subjective Date/Time Seen: 10/29/20 10:38 Post Op day: 1 Principal diagnosis: Right diabetic foot ulcer, osteomyelitis Interval history: patient awake. Mild complaints of right foot pain. Eating breakfast. Exam Const: General: cooperative, comfortable, no acute distress and alert Orientation/consciousness: patient oriented x3 HENMT: Head: normal to inspection Eyes: General: appearance normal, both eyes and all related structures Conjunctivae: conjunctivae normal Neck: Neck: normal visual inspection Chest: Chest palpation & inspection: normal inspection of the chest Resp: Effort & Inspection: normal respiratory effort and able to speak in complete sentences Cardio: Jugular venous distension: no JVD Rate: regular rate and bradycardic Rhythm: regular rhythm Skin: Lesions: lesion noted (Right plantar foot ) Other: There is a large wound on the plantar aspect of the right foot which extends from the medial to the lateral aspect. Wound VAC dressing in place. Patient has bilateral lower extremity edema consistent with lymphedema. She does have small crusted areas of now closed wounds. Dry skin noted throughout. Neuro: General: moves all extremities and no focal motor deficits Extrem: Right lower extremity: lower leg ( Lymphedema and venous stasis changes, crusted areas, no open weeping) Details: non-pitting edema and abrasion ( Anterior leg just below the knee); no crepitus, ankle ( Positive ankle dorsiflexion/ plantar flexion) Details: swelling and foot ( palpable pedal pulse) Details: edema, motor-sensory exam Details: light-touch abnormal Location: in all toes and other ( wound, see below); no tenderness, no unusual warmth, no ecchymosis and no crepitus Left lower extremity: lower leg ( lymphedema and chronic venous stasis changes.) Details: pitting edema and other ( no pain when) Other: Right foot dressing change today. Wound with 95% granulation tissue. No active purulence or erythema. Psych: Appearance: disheveled Insight: Fair insight present (Psych) Judgement: Fair judgement present (Psych) Objective Data Vital Signs Vital Signs: Vital Signs - 24 hr 10/28/20 13:20 10/28/20 14:30 10/28/20 14:35 Temperature 98.4 F 97.0 F L Pulse Rate 63 57 L Respiratory Rate 20 23 H Blood Pressure 118/74 113/54 L Pulse Oximetry 94 91 94 10/28/20 14:45 10/28/20 15:00 10/28/20 15:15 Temperature Pulse Rate 59 L 59 L 59 L Respiratory Rate 22 H 16 21 H Blood Pressure 129/58 L 125/60 137/58 L Pulse Oximetry 94 92 91 10/28/20 15:30 10/28/20 15:45 10/28/20 16:00 Temperature 97.3 F L 97.4 F L Pulse Rate 59 L 59 L 59 L Respiratory Rate 22 H 2
[2020-10-29 11:29] LABS: Hematocrit 32.3 % (37.0-47.0); Hemoglobin 9.8 g/dL (12.0-15.0); Mean Corpuscular HGB Conc 30.3 g/dl (32-36); Mean Corpuscular Hemoglobin 31.5 pg (26-34); Mean Corpuscular Volume 103.9 fl (80-100); Mean Platelet Volume 10.6 fl (7.4-10.4); Platelet Count Result 327 k/mm3 (150-375); Red Blood Count 3.11 M/mm3 (4.2-5.4); Red Cell Distribution Width 16.8 % (11.5-14.5)
[2020-10-29 11:44] LABS: Glucose Point of Care 149 mg/dl (65-105)
[2020-10-29 12:04] LABS: Albumin Level 2.4 g/dL (3.5-5.1); Anion Gap 9 mmol/L (8-16); Blood Urea Nitrogen 56 mg/dL (7-17); Calcium 8.9 mg/dL (8.4-10.2); Carbon Dioxide 23 mmol/L (22-30); Chloride 97 mmol/L (98-107); Estimated CRCL calculation 13 ml/min; Estimated Glomerular Filt Rate 9; Glucose 142 mg/dL (65-110); Phosphorus 4.4 mg/dL (2.5-4.5); Potassium 5.3 mmol/L (3.4-5.0); Sodium 129 mmol/L (137-145)
[2020-10-29 13:19] LABS: Glucose Point of Care 153 mg/dl (65-105)
[2020-10-29] MEDS: oxyCODONE HCL (*CRX) 2.5 MG TAB IR PO (13:46)
--- NOTE | 2020-10-29 14:00 | PC.NURSE ---
To dialysis via bed.
--- NOTE | 2020-10-29 14:33 | PM.DS ---
DS: Admitting Diagnosis Admitting Diagnosis Weak DS: Discharge Diagnosis Discharge Diagnosis (1) MRSA bacteremia: Code(s): R78.81 - Bacteremia; B95.62 - Methicillin resistant Staphylococcus aureus infection as the cause of diseases classified elsewhere Status: Acute Assessment and Plan: Patient had blood cultures drawn on admission (10/21) with 2 of 2 bottles growing MRSA. Likely source is foot wound. Started on Primaxin and vancomycin for diabetic foot wound. Repeat blood cultures (10/23) again growing MRSA in 2of2 bottles. Repeat BCx 10/26 NGTD. Infectious Disease following and appreciate their input; they recommended 42 days total of treatment since 10/23/20 BCx set was positive. WBC 15K and climbed to 22K before trending down. Primaxin stopped 10/27. Patient did undergo I&D of her right foot wound for limb salvage. (2) Missed dialysis: Status: Acute Assessment and Plan: The patient has been having issues getting to dialysis and reports a 40 lb weight gain recently. She has had HD here and close to dry weight. Continue TTS dialysis schedule. (3) Electrolyte abnormality: Code(s): E87.8 - Other disorders of electrolyte and fluid balance, not elsewhere classified Status: Acute Assessment and Plan: Including hyperkalemia (5.8) and hyponatremia (125), likely due to missed dialysis and volume overload. Cortisol level 55 but better on repeat at 31. [place] elevated Cortisol level related to the bacteremia. Electrolytes were corrected with dialysis. (4) Diabetic ulcer of right foot: Qualifiers: Diabetes mellitus type: type 2 Diabetic foot ulcer location: midfoot Non-pressure ulcer stage: with necrosis of bone Qualified Code(s): E11.621 - Type 2 diabetes mellitus with foot ulcer; L97.414 - Non-pressure chronic ulcer of right heel and midfoot with necrosis of bone Code(s): E11.621 - Type 2 diabetes mellitus with foot ulcer; L97.519 - Non-pressure chronic ulcer of other part of right foot with unspecified severity Status: Acute Assessment and Plan: GenSurg found that there is an area laterally with bone exposure concerning now for osteomyelitis. Foot xray 10/25 showing osteomyelitis involving the 5th metatarsal. Amputation discussed but patient refused. Could be source of MRSA and with her persistently positive BCx. GenSurg discussed with Ortho who took the patient to the OR for excision rt foot osteo with excisional debridement on 10/28/20. Wound vac resumed. (5) Osteomyelitis of foot, right, acute: Code(s): M86.171 - Other acute osteomyelitis, right ankle and foot Status: Acute Assessment and Plan: As above. (6) End-stage renal disease on hemodialysis: Code(s): N18.6 - End stage renal disease; Z99.2 - Dependence on renal dialysis Status: Acute Assessment and Plan: Plan is as detailed above. She toelrated HD here. (7) Leukocytosis: Code(s): D72.829 - Elevated white blood cell count, unspecified Status: Acute Assessment and Plan: WBC 15.5K on admission and climbed to 22K before trending down. [place] Star related to the positive BCx and osteomyelitis. No diarrhea. Repeat as outpatient (8) Elevated LFTs: Code(s): R79.89 - Other specified abnormal findings of blood chemistry Status: Acute Assessment and Plan: Mild elevation in AST that has normalized. AP appears to be chronically elevated but trending down now (related to osteo?). TBili elevated to 2.2 on admission and now 1.6 on repeat. Abdominal exam was benign. (9) Generalized weakness: Code(s): R53.1 - Weakness Status: Acute Assessment and Plan: Likely multifactorial related to above. 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
--- NOTE | 2020-10-29 15:08 | PM.PNNEP ---
Progress Note: A&P Assessment and Plan (1) End-stage renal disease on hemodialysis: Code(s): N18.6 - End stage renal disease; Z99.2 - Dependence on renal dialysis Status: Chronic Assessment and Plan: hemodialysis today and again tomorrow to get back on //Sunday schedule follow electrolytes, volume status, and clearance (2) Hyperkalemia: Code(s): E87.5 - Hyperkalemia Status: Acute Assessment and Plan: resolved due to missed dialysis treatment prior to admission (3) MRSA bacteremia: Code(s): R78.81 - Bacteremia; B95.62 - Methicillin resistant Staphylococcus aureus infection as the cause of diseases classified elsewhere Status: Acute Assessment and Plan: blood cultures drawn on admission (10/21) with 2 of 2 bottles growing MRSA suspected source is foot wound (see #4) repeat blood cultures (10/23) again growing MRSA in 2 of 2 bottles Infectious Disease following -- antibiotic therapy as outlined repeat blood cultures NGTD on 10/26 continue current therapy (4) Diabetic ulcer of right foot: Qualifiers: Diabetic foot ulcer location: midfoot Diabetes mellitus type: type 2 Non-pressure ulcer stage: with necrosis of bone Qualified Code(s): E11.621 - Type 2 diabetes mellitus with foot ulcer; L97.414 - Non-pressure chronic ulcer of right heel and midfoot with necrosis of bone Code(s): E11.621 - Type 2 diabetes mellitus with foot ulcer; L97.519 - Non-pressure chronic ulcer of other part of right foot with unspecified severity Status: Acute Assessment and Plan: complicated by findings of osteomyeltiis (Surgery found that there is an area laterally with bone exposure) foot x-ray (10/25/20) showing osteomyelitis involving 5th metatarsal - possible source of MRSA bacteremia/positive blood cultures s/p right foot wound debridement yesterday wound vac in place Surgery and Orthopedics following (5) Hypertension: Onset Date: Unknown Qualifiers: Hypertension type: essential hypertension Qualified Code(s): I10 - Essential (primary) hypertension Code(s): I10 - Essential (primary) hypertension Status: Chronic Assessment and Plan: reasonable control at this time suspect pain issue may cause some fluctuations follow trend of parameters (6) Anemia: Onset Date: Unknown Code(s): D64.9 - Anemia, unspecified Status: Chronic Assessment and Plan: due to ESRD and complicated by recent hospitalizations and infections Epogen with HD follow trend of H/H (7) Insulin dependent type 2 diabetes mellitus: Code(s): E11.9 - Type 2 diabetes mellitus without complications; Z79.4 - 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 Will continue to follow. Subjective Date/time seen: 10/29/20 15:08 Unable to see yesterday or received dialysis yesterday as was in OR for right foot debridement - tolerated treatment well but having expected post-op wound pain; tolerating dialysis treatment today (seen on HD at ~ 2:50PM); noted plans for possible discharge later today. Exam Narrative: General: WD/WN female in NAD Heart: normal S1 and S2; no rub Lungs: decreased at bases Abdomen: soft, nontender, nondistended, positive bowel sounds Extremities: no cyanosis or clubbing; no edema Skin: right foot wound with wound vac in place Objective Data Vital Signs Vital Signs: Vital Signs Temp Pulse Resp BP Pulse Ox 10/29/20 15:00 63 153/68 H 10/29/20 14:45 60 144/74 H 10/29/20 14:30 60 125/59 L 10/29/20 14:15 57 L 129/51 L 10/29/20 14:10 58 L 128/61 10/29/20 14:05 36.6 C 58 L 18 130/64 10/29/20 12:50 94 10/29/20 12:00 96 10/29/20 09:43 60 10/29/20 09:35 97
--- NOTE | 2020-10-29 15:08 | P.PNNP_ITS ---
Progress Note: A&P Assessment and Plan (1) End-stage renal disease on hemodialysis: Code(s): N18.6 - End stage renal disease; Z99.2 - Dependence on renal dialysis Status: Chronic Assessment and Plan: * hemodialysis today and again tomorrow to get back on //Sunday schedule * follow electrolytes, volume status, and clearance (2) Hyperkalemia: Code(s): E87.5 - Hyperkalemia Status: Acute Assessment and Plan: * resolved * due to missed dialysis treatment prior to admission (3) MRSA bacteremia: Code(s): R78.81 - Bacteremia; B95.62 - Methicillin resistant Staphylococcus aureus infection as the cause of diseases classified elsewhere Status: Acute Assessment and Plan: * blood cultures drawn on admission (10/21) with 2 of 2 bottles growing MRSA * suspected source is foot wound (see #4) * repeat blood cultures (10/23) again growing MRSA in 2 of 2 bottles * Infectious Disease following -- antibiotic therapy as outlined * repeat blood cultures NGTD on 10/26 * continue current therapy (4) Diabetic ulcer of right foot: Qualifiers: Diabetic foot ulcer location: midfoot Diabetes mellitus type: type 2 Non-pressure ulcer stage: with necrosis of bone Qualified Code(s): E11.621 - Type 2 diabetes mellitus with foot ulcer; L97.414 - Non-pressure chronic ulcer of right heel and midfoot with necrosis of bone Code(s): E11.621 - Type 2 diabetes mellitus with foot ulcer; L97.519 - Non-pressure chronic ulcer of other part of right foot with unspecified severity Status: Acute Assessment and Plan: * complicated by findings of osteomyeltiis (Surgery found that there is an area laterally with bone exposure) * foot x-ray (10/25/20) showing osteomyelitis involving 5th metatarsal - possible source of MRSA bacteremia/positive blood cultures * s/p right foot wound debridement yesterday * wound vac in place * Surgery and Orthopedics following (5) Hypertension: Onset Date: Unknown Qualifiers: Hypertension type: essential hypertension Qualified Code(s): I10 - Essential (primary) hypertension Code(s): I10 - Essential (primary) hypertension Status: Chronic Assessment and Plan: * reasonable control at this time * suspect pain issue may cause some fluctuations * follow trend of parameters (6) Anemia: Onset Date: Unknown Code(s): D64.9 - Anemia, unspecified Status: Chronic Assessment and Plan: * due to ESRD and complicated by recent hospitalizations and infections * Epogen with HD * follow trend of H/H (7) Insulin dependent type 2 diabetes mellitus: Code(s): E11.9 - Type 2 diabetes mellitus without complications; 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 Will continue to follow. Subjective Date/time seen: 10/29/20 15:08 Unable to see yesterday or received dialysis yesterday as was in OR for right foot debridement - tolerated treatment well but having expected post-op wound pain; tolerating dialysis treatment today (seen on HD at ~ 2:50PM); noted plans for possible discharge later today. Exam Narrative: General: WD/WN female in NAD Heart: normal S1 and S2; no rub Lungs: decreased at bases Abdomen: soft, nontender, nondistended, positive bowel sounds Extremities: no cyanosis or clubbing; no edema Skin: r
--- NOTE | 2020-10-29 16:15 | PC.NURSE ---
Back from dialysis via bed.
[2020-10-29 16:26] LABS: EDCOVIDSCREEN Negative (Negative)
[2020-10-29] MEDS: INSULIN ASPART (*BKC) 100 UNITS/ML SUB-Q (17:37)
[2020-10-29 17:43] LABS: Glucose Point of Care 251 mg/dl (65-105)
[2020-10-30] VITALS: BP 126/53; PULSE 60; RESP 18; TEMP 36.3; O2SAT 95
[2020-10-30 01:56] LABS: Glucose Point of Care 196 mg/dl (65-105)
--- NOTE | 2020-11-02 12:06 | PC.NURSE ---
Blood cx are negative. Would cx susceptible to Vancomycin. Dr. Carcamo aware.
--- NOTE | 2020-11-03 07:37 | PC.NURSE ---
Right foot culture results faxed to Dr. Varma and Dr. Buchanan's office after Dr. Carcamo reviewed the findings and treatment.
== END 2020-10-30 03:30 | DRG 623 ==
LOC: ANHED 10:46 → ANHIMU 11:33 → ANH3MEDSUR 10-27 15:45 → ANHIMU 11-01 16:47
PROVIDERS: Internal Medicine; Internal Medicine Nephrology; Orthopaedic Surgery; Physician Assistant; Admitting Provider Student in an Organized Health Care Education/Training Program; Emergency Provider Emergency Medicine; PCP Internal Medicine; Visit Provider Internal Medicine
PROC: 0KBV0ZZ Excision of Right Foot Muscle, Open Approach (ICD-10-PCS; principal; 2020-10-28 14:00)
DX: E11.621 Type 2 diabetes mellitus with foot ulcer (principal); E87.1 Hypo-osmolality and hyponatremia; I13.11 Hypertensive heart and chronic kidney disease without heart failure, with stage 5 chronic kidney disease, or end stage renal disease; R78.81 Bacteremia; N39.0 Urinary tract infection, site not specified; L97.414 Non-pressure chronic ulcer of right heel and midfoot with necrosis of bone; M86.171 Other acute osteomyelitis, right ankle and foot; E11.69 Type 2 diabetes mellitus with other specified complication; E11.22 Type 2 diabetes mellitus with diabetic chronic kidney disease; B96.5 Pseudomonas (aeruginosa) (mallei) (pseudomallei) as the cause of diseases classified elsewhere; B95.62 Methicillin resistant Staphylococcus aureus infection as the cause of diseases classified elsewhere; Z20.822 Contact with and (suspected) exposure to COVID-19; E11.3593 Type 2 diabetes mellitus with proliferative diabetic retinopathy without macular edema, bilateral; E87.5 Hyperkalemia; N18.6 End stage renal disease; Z99.2 Dependence on renal dialysis; R79.89 Other specified abnormal findings of blood chemistry; R53.1 Weakness; E11.40 Type 2 diabetes mellitus with diabetic neuropathy, unspecified; E11.43 Type 2 diabetes mellitus with diabetic autonomic (poly)neuropathy; K31.84 Gastroparesis; E11.51 Type 2 diabetes mellitus with diabetic peripheral angiopathy without gangrene; D53.9 Nutritional anemia, unspecified; D73.5 Infarction of spleen; D72.829 Elevated white blood cell count, unspecified; M25.561 Pain in right knee; I27.20 Pulmonary hypertension, unspecified; E78.5 Hyperlipidemia, unspecified; I87.2 Venous insufficiency (chronic) (peripheral); M81.0 Age-related osteoporosis without current pathological fracture; M10.9 Gout, unspecified; Z79.4 Long term (current) use of insulin; Z79.01 Long term (current) use of anticoagulants; Z79.899 Other long term (current) drug therapy; Z86.73 Personal history of transient ischemic attack (TIA), and cerebral infarction without residual deficits; Z98.42 Cataract extraction status, left eye; Z98.41 Cataract extraction status, right eye
CPT/HCPCS: 36415; 71046; 73564; 73630; 80048; 80053; 80069; 80074; 80202; 81001; 82533; 82565; 82607; 82746; 82948; 83036; 83690; 83735; 84100; 84443; 85025; 85027; 86706; 87040; 87070; 87075; 87077; 87086; 87088; 87147; 87186; 87205; 87340; 87426; 93005; 96374; 97110; 97161; 97166; 97530; 97535; 99285; A9270; C9803; G0257; G0378; J0743; J1644; J1815; J2704; J3010; J3370; J7030; J7040; P9047; Q5106

== ENCOUNTER 2020-11-03 02:44 | Emergency (ER) | payer MEDICARE, MEDICAID, SELFPAY ==
[2020-11-03] VITALS (9 sets, daily range): BP systolic 139–162; BP diastolic 58–78; PULSE 69–71; RESP 16–20; TEMP 36.7; O2SAT 94–98
--- NOTE | ~2020-11-03 | XR_ITS ---
XR chest 1V portable 11/03/2020 06:50 Indication: Elevated white blood cell count. Hypertension. Hypoxia. Procedure: AP portable chest Comparison: 10/21/2020 Findings: Diffuse bilateral interstitial infiltrates. Cardiomegaly. No pleural effusion or pneumothor ax. No acute osseous abnormality. Impression: 1: Diffuse bilateral interstitial infiltrates which may represent edema or pneumonia. 2: Cardiomegaly. Reviewed, dictated and finalized at location A. Impression: 1: Diffuse bilateral interstitial infiltrates which may represent edema or pneu monia. 2: Cardiomegaly.
--- NOTE | 2020-11-03 04:21 | PC.NURSE ---
Pt notes bedsore from being in hospital last week to bottom, covered by nursing facility. Pt reports no more redness, ulcer. Bandage is precautionary as wound finishes healing.
[2020-11-03] MEDS: hydrOXYzine pamoate 25 MG CAPSULE PO (05:50)
[2020-11-03 06:11] LABS: Hematocrit 30.5 % (37.0-47.0); Hemoglobin 9.3 g/dL (12.0-15.0); Mean Corpuscular HGB Conc 30.5 g/dl (32-36); Mean Corpuscular Hemoglobin 32.2 pg (26-34); Mean Corpuscular Volume 105.5 fl (80-100); Mean Platelet Volume 10.5 fl (7.4-10.4); Platelet Count Result 320 k/mm3 (150-375); Red Blood Count 2.89 M/mm3 (4.2-5.4); Red Cell Distribution Width 17.5 % (11.5-14.5); White Blood Count 17.6 K/mm3 (4.5-10.0)
[2020-11-03 06:20] LABS: Alanine Aminotransferase 13 U/L (4-35); Alkaline Phosphatase 271 U/L (38-126); Anion Gap 5 mmol/L (8-16); Aspartate Amino Transferase 22 U/L (14-36); Bilirubin,Total 1.1 mg/dL (0.2-1.3); Blood Urea Nitrogen 26 mg/dL (7-17); Calcium 8.8 mg/dL (8.4-10.2); Carbon Dioxide 33 mmol/L (22-30); Chloride 97 mmol/L (98-107); Estimated CRCL calculation 20 ml/min; Estimated Glomerular Filt Rate 17; Glucose 141 mg/dL (65-110); Potassium 3.3 mmol/L (3.4-5.0); Sodium 135 mmol/L (137-145)
--- NOTE | 2020-11-03 06:31 | ED.GENADULT ---
HPI - General Adult General Chief complaint: Recheck/Abnormal Lab/Rx Stated complaint: elevated wbc Time Seen by Provider: 11/03/20 05:11 History of Present Illness HPI narrative: Patient is 70-year-old female presents the emergency department with chief complaint of abnormal labs. Patient was sent from a local nursing facility after she had an elevated white blood cell count. They noticed that her white blood cell count was elevated and they decided to send her in patient has no complaints. Patient reports he is being treated for osteomyelitis and has a wound VAC in her foot. Per the residential the patient's white blood cell count was elevated she also had some mild hypoxia that was requiring some supplemental oxygen whenever she was resting Related Data Home Medications Medication Instructions Recorded Confirmed bupropion HCl [Wellbutrin SR] 150 mg PO DAILY 05/30/19 10/21/20 calcium acetate(phosphat bind) 667 mg PO TID 05/30/19 10/21/20 amlodipine 10 mg PO DAILY 09/07/20 10/21/20 atorvastatin 20 mg PO DAILY 09/07/20 10/21/20 buspirone 15 mg PO BID 09/07/20 10/21/20 allopurinol 100 mg PO DAILY 10/21/20 10/21/20 carvedilol 25 mg PO BID 10/21/20 10/21/20 Allergies Allergy/AdvReac Type Severity Reaction Status Date / Time No Known Allergies Allergy Mild Verified 10/21/20 10:21 Review of Systems Review of Systems: A 10 system review of systems was completed on the patient and is negative except for what is stated in the HPI. Nursing and ancillary documentation was reviewed. [facility] Past Medical History Medical History Anxiety and depression Arthritis Benign thyroid cyst Evaluated by ultrasound a couple of years ago per patient report. Cerebrovascular accident Due to embolic event following a shoulder fracture 2016 with chronic mild left-sided weakness. Chronic anemia Chronic venous stasis dermatitis of both lower extremities Diabetic gastroparesis Diabetic neuropathy Diabetic retinopathy of both eyes End-stage renal disease on hemodialysis Previously on peritoneal dialysis. Gastroesophageal reflux disease Gout Grade II diastolic dysfunction Noted on echo on 07/04/2019. EF 55-60%. Hyperkalemia Hyperlipidemia Hypertension (Unknown) Infarction of liver (07/07/19) Insulin dependent type 2 diabetes mellitus A1c was 8.9% on 09/08/2020. Moderate pulmonary hypertension Noted on echo on 07/04/2019 with estimated pulmonary arterial systolic pressure on 53 mmHg. Morbid obesity Neuropathy due to type 2 diabetes mellitus Osteomyelitis of foot, right, acute Osteoporosis Retinal detachment Right knee pain Shingles Splenic infarct (07/07/19) Venous stasis dermatitis of both lower extremities Surgical History Surgical History History of bilateral cataract extraction (2009) History of total hysterectomy with bilateral salpingo-oophorectomy (BSO) For benign ovarian mass. Proliferative diabetic retinopathy with history of surgery Status post glaucoma surgery Surgically constructed arteriovenous fistula (2015) Family History Family History Sibling Family history of alcoholism Mother Metastatic colon cancer in female Father Cancer Of the neck due to chemical exposure Son Heroin overdose Her youngest son Motor vehicle collision Her 2nd youngest son Other Hypertension Social History Social History Social History: Surrogate decision maker: Satya Rodriguez, son. Code status: Full code. Smoking status: Never smoker Second hand tobacco smoke exposure: No Alcohol intake: never Substance use: never Additional living arrangements comments: Lives alone in [place]. . She had a total of 4 sons; the 2 eldest sons are still l
[2020-11-03 06:32] LABS: NT Pro B Type Natriuretic Pept 14100 pg/mL (5-100); Troponin I < 0.012 ng/mL (0.000-0.034)
--- NOTE | 2020-11-03 06:36 | PC.NURSE ---
Attempted to contact dennis Anne for patient, unable to reach at this time.
--- NOTE | 2020-11-03 07:00 | PC.NURSE ---
Pt does not make urine, ERP aware. UA order to be cancelled.
--- NOTE | 2020-11-03 07:07 | PC.NURSE ---
Spoke with pt son, Omid, on the phone and updated.
[2020-11-03 07:47] LABS: Band Neutrophils Percent 4 % (0-6); Eosinophils Absolute Manual 0.17 K/mm3 (0.02-0.5); Eosinophils Percent Manual 1 % (0-4); Lymphocytes Absolute Manual 0.35 K/mm3 (1.1-4.5); Metamyelocytes Percent 2 %; Neutrophils Absolute Manual 16.72 K/mm3 (1.7-7.2); Neutrophils Percent Manual 91 % (46-73); Platelet Estimate Adequate (Adequate); Total Cells Counted 100
[2020-11-03 07:48] LABS: Hypochromasia 1+ (NORMAL)
== END 2020-11-03 09:00 ==
PROVIDERS: Emergency Provider Emergency Medicine; PCP Internal Medicine
DX: D72.829 Elevated white blood cell count, unspecified (principal); M86.9 Osteomyelitis, unspecified; E11.40 Type 2 diabetes mellitus with diabetic neuropathy, unspecified; E11.43 Type 2 diabetes mellitus with diabetic autonomic (poly)neuropathy; E11.319 Type 2 diabetes mellitus with unspecified diabetic retinopathy without macular edema; K31.84 Gastroparesis; E11.22 Type 2 diabetes mellitus with diabetic chronic kidney disease; I12.0 Hypertensive chronic kidney disease with stage 5 chronic kidney disease or end stage renal disease; N18.6 End stage renal disease; Z99.2 Dependence on renal dialysis; E78.5 Hyperlipidemia, unspecified; I87.2 Venous insufficiency (chronic) (peripheral); I69.954 Hemiplegia and hemiparesis following unspecified cerebrovascular disease affecting left non-dominant side; M19.90 Unspecified osteoarthritis, unspecified site; F32.9 Major depressive disorder, single episode, unspecified; F41.9 Anxiety disorder, unspecified; E66.01 Morbid (severe) obesity due to excess calories; Z68.42 Body mass index [BMI] 45.0-49.9, adult; Z98.49 Cataract extraction status, unspecified eye
CPT/HCPCS: 36415; 71045; 80053; 83880; 84484; 85025; 99284; A9270

== ENCOUNTER 2020-11-16 14:49 | Inpatient (IN) | payer MEDICARE, MEDICAID, SELFPAY ==
[2020-11-16] VITALS (36 sets, daily range): BP systolic 107–156; BP diastolic 51–80; PULSE 54–105; RESP 13–25; TEMP 35.7; O2SAT 77–98
--- NOTE | ~2020-11-16 | XR_ITS ---
EXAMINATION: XR chest 1V portable DATE: 11/20/2020 05:14 INDICATION: Hypoxia TECHNIQUE: frontal view of the chest was obtained. COMPARISON: Chest radiograph dated 11/18/2020 FINDINGS: Cardiomegaly with interval progression of pulmonary vascular congestion. Slight increase in mild opac ities in the bilateral mid and lower lung zones which could represent pneumonia, mild pulmonary edema , atelectasis or some combination thereof. No pleural effusion or pneumothorax. IMPRESSION: 1. Cardiomegaly with increasing pulmonary vascular congestion. 2. Slight increase in mild opacities in the bilateral mid and lower lung zones which could represent pulmonary edema, pneumonia, atelectasis or some combination thereof. Reviewed, dictated and finalized at location A. IMPRESSION: 1. Cardiomegaly with increasing pulmonary vascular congestion. 2. Slight increase in mild opacities in the bilateral mid and lower lung zones which could represent pulmonary edema, pneumonia, atelectasis or some combinati on thereof.
--- NOTE | ~2020-11-16 | US_ITS ---
EXAMINATION: US venous doppler [facility] EXAM DATE: 11/18/2020 16:35 INDICATION: Bilateral leg swelling. TECHNIQUE: Multiple grayscale, color flow and Doppler images of the lower extremity deep venous syste ms bilaterally were obtained and reviewed. Notation made by technologist that there were limitations during exam due to patient motion. Comparison is made to prior examination from 09/08/2020. FINDINGS: Right side: The right common femoral, femoral and profunda veins demonstrate normal color flow, respi ratory variation, augmentation and compressibility. Compressibility, color flow confirmed within the right popliteal, posterior tibial, peroneal, and greater saphenous veins. Left side: The left common femoral, femoral and profunda veins demonstrate normal color flow, respira tory variation, augmentation and compressibility. Compressibility, color flow confirmed within the l eft popliteal, posterior tibial, peroneal, and greater saphenous veins. IMPRESSION: 1. No lower extremity deep venous thrombosis bilaterally. Reviewed, dictated and finalized at location B.
--- NOTE | ~2020-11-16 | CT_ITS ---
EXAMINATION:CT diagnostic chest wo con DATE: 11/16/2020 18:25 INDICATION: Shortness of breath. TECHNIQUE: Computed tomography (CT) of the chest was performed without intravenous contrast. Automate d exposure control and iterative reconstruction technique were employed. The dose-length product (DLP ) was 411.61 mGy-cm. COMPARISON: CT abdomen and pelvis 07/05/2019, chest 2 views 11/16/2020 FINDINGS: There is diffuse smooth septal thickening in the lungs, consistent mild pulmonary edema. Th ere are scattered areas of mild atelectasis in the lungs. There is a 5 mm nodule in right middle lobe , likely benign. No pleural effusion. Cardiomegaly is noted. There are coronary artery calcifications . No pericardial effusion. The central pulmonary arteries are enlarged, consistent with pulmonary art erial hypertension. There is a small volume of perihepatic ascites. There is mild thoracic spondylosi s. IMPRESSION: 1. Mild pulmonary edema. 2. Cardiomegaly. 3. Small volume of ascites. Reviewed, dictated and finalized at location A.
--- NOTE | ~2020-11-16 | XR_ITS ---
EXAMINATION: XR chest 1V portable EXAM DATE: 11/18/2020 14:58 INDICATION: Cough, hypoxia. TECHNIQUE: Portable AP frontal chest x-ray was obtained. Comparison is made to prior examination from 11/16/2020. FINDINGS: There is cardiomegaly and pulmonary vascular congestion. No confluent consolidation, pneumo thorax or pleural effusion suspected. There are no osseous abnormalities identified. IMPRESSION: Cardiomegaly, pulmonary vascular congestion. Reviewed, dictated and finalized at location B.
--- NOTE | ~2020-11-16 | CT_ITS ---
EXAMINATION: CT brain wo con DATE: 11/16/2020 20:06 INDICATION: Confusion. Altered mental status. TECHNIQUE: Computed tomography (CT) of the head was performed without intravenous contrast. The mA wa s adjusted according to patient size. Iterative reconstruction technique was employed. The dose-lengt h product was 605.33 mGy-cm. COMPARISON: Head CT 03/29/2015 FINDINGS: Motion artifact is noted. There are scattered areas of low attenuation in the cerebral whit e matter. There is an old infarct in the right occipital lobe. There is an old lacunar infarct in the left basal ganglia. There is no intracranial hemorrhage, acute infarction, or abnormal intracranial mass lesion. The ventricles are normal in size. There is mild mucosal thickening in the paranasal sin uses. There are likely changes of ocular lens replacement surgeries. There are implants superolateral to the ocular globes bilaterally. The mastoid air cells are normal. IMPRESSION: 1. Old infarcts in the right occipital lobe and left basal ganglia. 2. Moderate nonspecific cerebral white matter disease, which likely represents chronic small vessel i schemic disease. Reviewed, dictated and finalized at location A. IMPRESSION: 1. Old infarcts in the right occipital lobe and left basal ganglia. 2. Moderate nonspecific cerebral white matter disease, which likely represents chronic small vessel ischemic disease.
--- NOTE | ~2020-11-16 | XR_ITS ---
EXAMINATION: XR chest 2V DATE: 11/16/2020 15:27 INDICATION: Shortness of breath. TECHNIQUE: Frontal and lateral views of the chest were obtained. COMPARISON: Chest single view 11/03/2020, CT abdomen and pelvis 07/05/2019 FINDINGS: Sensitivity is decreased by obesity. There is mild atelectasis in the lower lung zones. No pleural effusion or pneumothorax. Cardiomegaly is noted. IMPRESSION: 1. Mild atelectasis in the lower lung zones. 2. Cardiomegaly. Reviewed, dictated and finalized at location A.
--- NOTE | ~2020-11-16 | XR_ITS ---
EXAMINATION: XR knee LT 3V DATE: 11/17/2020 15:29 INDICATION: Left knee pain. Fall. TECHNIQUE: 3 views of left knee were obtained. COMPARISON: Left knee radiographs 11/16/2020 FINDINGS: Bone alignment is normal. No fracture. Osteopenia is noted. There is severe osteoarthritis of medial and patellofemoral compartments and mild osteoarthritis of lateral compartment. There is a moderate-sized knee joint effusion. IMPRESSION: 1. Severe left knee osteoarthritis. 2. Moderate-sized left knee joint effusion. Reviewed, dictated and finalized at location A.
--- NOTE | ~2020-11-16 | XR_ITS ---
EXAMINATION: XR knee LT 3V DATE: 11/16/2020 15:27 INDICATION: Left knee pain. Fall. TECHNIQUE: 3 views of left knee were obtained. COMPARISON: None. FINDINGS: Bone alignment is normal. No fracture. There is diffuse osteopenia. There is severe osteoar thritis of medial and patellofemoral compartments and mild osteoarthritis of lateral compartment. The re is a moderate-sized knee joint effusion. IMPRESSION: 1. Severe left knee osteoarthritis. 2. Moderate-sized left knee joint effusion. Reviewed, dictated and finalized at location A.
--- NOTE | 2020-11-16 15:03 | ECG_ITS ---
Measurements Intervals Potter Rate: 56 P: 54 SD: 185 QRS: 0 QRSD: 165 T: 107 QT: 549 QTc: 534 Interpretive Statements SINUS BRADYCARDIA LEFT BUNDLE BRANCH BLOCK BASELINE ARTIFACT- I, II, III, AVR ABNORMAL ECG Electronically Signed On 11-16-2020 16:39:47 CDT by Kaushik Valencia D.O.
[2020-11-16 15:26] LABS: Basophils Absolute Auto 0.1 K/mm3 (0.0-0.1); Basophils Percent Auto 0.6 % (0.2-1.2); Eosinophils Absolute Auto 0.2 K/mm3 (0-0.3); Hematocrit 27.7 % (37.0-47.0); Hemoglobin 8.7 g/dL (12.0-15.0); Immature Granulocyte Absolute 0.05 K/mm3 (0.00-0.031); Immature Granulocyte Percent A 0.6 % (0-0.5); Lymphocytes Absolute Auto 0.73 K/mm3 (0.9-3.2); Lymphocytes Percent Auto 8.4 % (18.3-44.2); Mean Corpuscular HGB Conc 31.4 g/dl (32-36); Mean Corpuscular Hemoglobin 32.8 pg (26-34); Mean Corpuscular Volume 104.5 fl (80-100); Mean Platelet Volume 10.9 fl (7.4-10.4); Monocytes Absolute Auto 0.7 K/mm3 (0.1-0.6); Monocytes Percent Auto 7.5 % (2.6-8.5); Neutrophils Percent Auto 80.9 % (45.5-73.1); Platelet Count Result 333 k/mm3 (150-375); Red Blood Count 2.65 M/mm3 (4.2-5.4); Red Cell Distribution Width 18.6 % (11.5-14.5); White Blood Count 8.7 K/mm3 (4.5-10.0)
[2020-11-16 15:50] LABS: Anion Gap 13 mmol/L (8-16); Blood Urea Nitrogen 67 mg/dL (7-17); Calcium 8.7 mg/dL (8.4-10.2); Carbon Dioxide 25 mmol/L (22-30); Chloride 93 mmol/L (98-107); Estimated CRCL calculation 9 ml/min; Estimated Glomerular Filt Rate 6; Glucose 149 mg/dL (65-110); Potassium 4.5 mmol/L (3.4-5.0); Sodium 131 mmol/L (137-145)
--- NOTE | 2020-11-16 16:58 | PC.NURSE ---
Called lab and spoke to Lauren to add on BNP [id number]
[2020-11-16 17:18] LABS: NT Pro B Type Natriuretic Pept 10600 pg/mL (5-100)
[2020-11-16 17:35] LABS: Alveolar/Arterial O2 Gradient 72.6 mmHg; Base Excess ABG 2.9 mEq/l (+/-2.0); Fractional Inspired Oxygen 28 %; HCO3 ABG 26.3 mEq/l (22.0-26.0); Methemoglobin ABG 0.1 %THb (0-1.5); Oxygen Content ABG 12.8 %vol (16.0-22.0); Oxygen Saturation ABG 97.1 % (95.0-100.0); Oxyhemoglobin 94.1 % THb (90.0-100.0); PCO2 ABG 35.6 mmHg (35.0-45.0); PO2 FiO2 Ratio Arterial Blood 3.04 %; Reduced Hemoglobin 4.8 %THb (0-5.0); Total Hemoglobin 9.6 g/dL (12.0-18.0); pH ABG 7.487 (7.350-7.450)
[2020-11-16 17:36] LABS: Device NASAL CANNULA; Modified Allen's Test Pass; Site Drawn RIGHT BRACHIAL
[2020-11-16] MEDS: HYDROmorphone HCL INJ (*CRX) 1 MG/ML SYR 0.5 MG IV PUSH (18:05)
--- NOTE | 2020-11-16 19:18 | ED.SOB ---
HPI - SOB/Dyspnea General Chief Complaint: Shortness of Breath/Dyspnea Stated Complaint: SOB Time Seen by Provider: 11/16/20 16:10 Source: patient and family Mode of arrival: EMS Limitations: no limitations History of Present Illness HPI Narrative: Patient is a 70-year-old female brought in by EMS from [facility] due to low oxygen saturation, 50s , confused and weak x1 day. Patient states that she was so weak today that she fell and landed on her left knee, complaining of left knee pain. Patient states that she is not been able to get her dialysis due to the halfway unable to schedule her a ride, this time she was supposed to go to her dialysis today but her oxygen was in the 50s so she was sent here to the emergency room. Patient denies any shortness of breath, chest pain, cough, fever or chills. Related Data Home Medications Medication Instructions Recorded Confirmed bupropion HCl [Wellbutrin SR] 150 mg PO DAILY 05/30/19 10/21/20 amlodipine 10 mg PO DAILY 09/07/20 10/21/20 atorvastatin 20 mg PO DAILY 09/07/20 10/21/20 allopurinol 100 mg PO DAILY 10/21/20 10/21/20 carvedilol 25 mg PO BID 10/21/20 10/21/20 Allergies Allergy/AdvReac Type Severity Reaction Status Date / Time No Known Allergies Allergy Mild Verified 10/21/20 10:21 Review of Systems Review of Systems: All systems reviewed & are unremarkable except as noted in HPI and below Constitutional: Constitutional: Denies body ache(s), Denies chills, Denies excessive sweating, Denies fatigue, Denies fever(s), Denies headache(s), Denies lethargy, Denies malaise and Denies weight loss Eyes: Eyes: Denies blurry vision, Denies change in vision and Denies loss of vision ENT: Denies dizziness, Denies ear discharge, Denies headache(s), Denies lip swelling, Denies epistaxis, Denies nasal congestion, Denies neck pain, Denies throat swelling and Denies tongue swelling Cardiovascular: Cardiovascular: Denies chest pain, Denies chest pain at rest, Denies chest pain with activity, Denies diaphoresis, Denies rapid heart rate, Denies edema, Denies irregular heart rhythm, Denies lightheadedness, Denies palpitations, Denies dyspnea and Denies dyspnea on exertion Respiratory: Respiratory: Denies chest congestion, Denies cough, Denies hemoptysis, Denies dyspnea and Denies dyspnea on exertion Gastrointestinal: Gastrointestinal: Denies abdominal pain, Denies melena, Denies hematochezia, Denies diarrhea, Denies nausea, Denies vomiting and Denies hematemesis Musculoskeletal: Musculoskeletal: Denies abnormal gait, Denies deformity, Denies joint swelling, Denies limited range of motion, Denies neck pain and Denies numbness Neurologic: Denies Abnormal speech present, Denies abnormal gait, Denies confusion, Denies dizziness, Denies headache(s), Denies focal weakness, Denies loss of vision, Denies numbness, Denies Other visual disturbances, Denies Sensory deficit (Neuro) and Denies weakness Psychiatric: Psychiatric: Denies confusion, Denies depression, Denies auditory hallucinations, Denies homicidal ideation and Denies suicidal ideation Endocrine: Endocrine: Denies cold intolerance, Denies excessive sweating, Denies fatigue, Denies heat intolerance and Denies palpitations Hematologic/Lymphatic: Hematologic/Lymphatic: Denies easy bleeding and Denies easy bruising Allergic/Immunologic: Allergic/Immunologic: Denies lip swelling, Denies throat swelling and Denies tongue swelling PMFSH Past Medical History Medical History Anxiety and depression Arthritis Benign thyroid cyst Evaluated by ultrasound a couple of years ago per patient report. Cerebrovascular accident Due to embolic event following a shoulder fracture 2016 with chronic mild left-sided weakness. Chronic anemia Chronic venous stasis dermatitis of both lower extremities Diabetic gastroparesis Diabetic neuropathy Diabetic retinopathy of both eyes End-stage renal disease on hemo
--- NOTE | 2020-11-16 21:59 | PC.NURSE ---
patient refused to allow this rn to unwrap her right foot to access wound and wound vac.
--- NOTE | 2020-11-16 23:32 | PM.IMHP ---
H&P: HPI History of Present Illness Date/Time: 11/16/20 23:32 Chief Complaint: Low pulse ox Narrative: This is a 70-year-old female with past medical history significant for type 2 diabetes mellitus insulin dependent, diabetic foot ulcer, end-stage renal disease on hemodialysis, hypertension, diabetic gastroparesis, diabetic peripheral neuropathy, diabetic retinopathy, gastroesophageal reflux disease, gout, grade 2 diastolic dysfunction, moderate pulmonary hypertension, obesity, anxiety and depression, degenerative joint disease, a stroke. Patient was recently discharged home with home health care after patient had necrotic ulcer complicated with osteomyelitis of the right midfoot which underwent excision and debridement and wound VAC placement. Patient comes today after she went to her hemodialysis center and was found to have a low pulse ox and was immediately sent to our emergency room for further evaluation and treatment. Patient was placed on 2 L by nasal cannula her oxygenation improved to the low 90s to mid 90s. Patient was tested for COVID and was negative 2 weeks ago. Preliminary workup has been essentially nonrevealing. Patient has been placed in observation status. Included CT head, CT chest ,chemistry, hematology, chest x-ray. Review of Systems Review of Systems: Low pulse ox. Constitutional: Constitutional: Denies chills, Denies fever(s), Denies malaise and Denies night sweats Eyes: Eyes: Denies change in vision ENT: Denies dysphagia, Denies nasal congestion, Denies nasal discharge, Denies nasal obstruction and Denies odynophagia Cardiovascular: Cardiovascular: Denies irregular heart rhythm, Denies radiating jaw, neck or arm pain, Denies palpitations and Denies dyspnea Respiratory: Respiratory: Denies cough and Denies dyspnea Gastrointestinal: Gastrointestinal: Denies diarrhea, Denies nausea and Denies vomiting Genitourinary: Genitourinary: Reports no additional female genitourinary complaints Musculoskeletal: Comments: Right foot wound VAC Integumentary/Breasts: Skin/Breast: Reports system reviewed and no additional complaints, except as docu Neurologic: Reports system reviewed and no additional complaints, except as documented Psychiatric: Psychiatric: Reports no additional psychiatric complaints Endocrine: Endocrine: Reports no additional endocrine complaints Hematologic/Lymphatic: Hematologic/Lymphatic: Reports no additional hematologic/lymphatic complaints Allergic/Immunologic: Allergic/Immunologic: Reports no additional allergic/immunologic complaints PMFSH Past Medical History Medical History Anxiety and depression Arthritis Benign thyroid cyst Evaluated by ultrasound a couple of years ago per patient report. Cerebrovascular accident Due to embolic event following a shoulder fracture 2016 with chronic mild left-sided weakness. Chronic anemia Chronic venous stasis dermatitis of both lower extremities Diabetic gastroparesis Diabetic neuropathy Diabetic retinopathy of both eyes End-stage renal disease on hemodialysis Previously on peritoneal dialysis. Gastroesophageal reflux disease Gout Grade II diastolic dysfunction Noted on echo on 07/04/2019. EF 55-60%. Hyperkalemia Hyperlipidemia Hypertension (Unknown) Infarction of liver (07/07/19) Insulin dependent type 2 diabetes mellitus A1c was 8.9% on 09/08/2020. Moderate pulmonary hypertension Noted on echo on 07/04/2019 with estimated pulmonary arterial systolic pressure on 53 mmHg. Morbid obesity Neuropathy due to type 2 diabetes mellitus Osteomyelitis of foot, right, acute Osteoporosis Retinal detachment Right knee pain Shingles Splenic infarct (07/07/19) Venous stasis dermatitis of both lower extremities Surgical History Surgical History History of bilateral cataract extraction (2009) History of total hysterectomy with bilateral sa
[2020-11-17] VITALS (17 sets, daily range): BP systolic 104–142; BP diastolic 45–90; PULSE 52–63; RESP 16–20; TEMP 36.2–37; O2SAT 94–99; BMI 44.3
[2020-11-17] MEDS: amLODIPine BESYLATE 5 MG TABLET 10 MG PO (08:22)
[2020-11-17] MEDS: ATORVASTATIN 20 MG TABLET PO (08:22)
[2020-11-17] MEDS: allopurinoL 100 MG TABLET PO (08:22)
[2020-11-17] MEDS: APIXABAN 2.5 MG TABLET PO ×2 (08:22→18:04)
[2020-11-17] MEDS: buPROPion HCL SR (12 HR) 150 MG TAB PO (08:22)
[2020-11-17] MEDS: FAMOTIDINE 20 MG TABLET PO (08:22)
[2020-11-17] MEDS: carvediloL 25 MG TABLET PO ×2 (08:22→20:40)
[2020-11-17] MEDS: diphenhydrAMINE HCl CAP 25 MG CAPSULE PO (10:29)
--- NOTE | 2020-11-17 11:26 | PM.PNNEP ---
Progress Note: A&P Assessment and Plan (1) End stage renal disease: Code(s): N18.6 - End stage renal disease Status: Chronic Assessment and Plan: HD today plan HD tomorrow to get back on T/T/S schedule continue efforts to optimize electrolytes, volume status, and clearance FULL CONSULT to follow Subjective Date/time seen: 11/17/20 11:26 Tolerating hemodialysis treatment at the time of my visit (seen on HD at 11:15am); sleeping comfortably and in no acute distress. Exam Narrative: General: WD/WN male in NAD Heart: normal S1 and S2; no rub Lungs: clear to auscultation Abdomen: soft, nontender, nondistended, positive bowel sounds Extremities: no cyanosis or clubbing; trace edema Skin: right foot wound VAC in place; bilateral lower extremity venous stasis dermatitis changes Objective Data Vital Signs Vital Signs: Vital Signs Temp Pulse Resp BP Pulse Ox 11/17/20 10:12 97 11/17/20 08:22 57 L 11/17/20 05:38 36.7 C 54 L 20 111/45 L 98 11/17/20 00:30 36.4 C 55 L 20 105/90 94 11/16/20 22:30 14 11/16/20 22:22 56 L 14 11/16/20 21:49 55 L 13 11/16/20 21:32 56 L 16 11/16/20 21:31 55 L 14 116/56 L 11/16/20 21:17 56 L 15 11/16/20 21:02 56 L 16 11/16/20 21:01 56 L 17 107/51 L 11/16/20 21:00 55 L 15 11/16/20 20:57 60 22 H 77 L 11/16/20 20:31 55 L 16 109/52 L 92 11/16/20 20:30 56 L 16 91 11/16/20 20:21 56 L 16 94 11/16/20 19:32 54 L 16 93 11/16/20 19:31 56 L 16 114/51 L 94 11/16/20 19:30 56 L 16 94 11/16/20 19:16 56 L 25 H 116/59 L 98 11/16/20 19:15 56 L 16 11/16/20 19:10 56 L 19 95 11/16/20 19:01 56 L 15 110/57 L 94 11/16/20 18:31 56 L 20 118/52 L 95 11/16/20 18:30 56 L 18 93 11/16/20 18:11 56 L 18 94 11/16/20 17:45 57 L 19 95 11/16/20 17:30 57 L 19 97 11/16/20 17:19 57 L 20 96 11/16/20 17:09 57 L 22 H 98 11/16/20 17:02 57 L 17 151/73 H 97 11/16/20 16:17 57 L 20 156/76 H 97 11/16/20 16:15 57 L 19 97 11/16/20 16:02 57 L 18 153/80 H 98 11/16/20 16:00 57 L 17 96 11/16/20 15:46 60 22 H 137/79 96 11/16/20 15:45 57 L 19 96 11/16/20 15:43 56 L 22 H 95 11/16/20 14:57 35.7 C L 105 H 20 131/58 L 92 Intake/Output Intake/Output: Intake & Output 11/14/20 11/15/20 11/16/20 11/17/20 23:59 23:59 23:59 23:59 Intake Total 670 Balance 670 Meds/Results Medications: Active Medications Generic Name Dose Route Start Last Admin Trade Name Jitendra PRN Reason Stop Dose Admin Allopurinol 100 mg 11/17/20 08:00 11/17/20 08:22 Allopurinol 100 Mg Tablet PO 100 mg DAILY@0800 MICHELL Administration Amlodipine Besylate 10 mg 11/17/20 09:00 11/17/20 08:22 Amlodipine Besylate 5 Mg Tablet PO 10 mg DAILY MICHELL Administration Apixaban 2.5 mg 11/17/20 09:00 11/17/20 08:22 Apixaban 2.5 Mg Tablet PO 2.5 mg BID MICHELL Administration Atorvastatin Calcium 20 mg 11/17/20 09:00 11/17/20 08:22 Atorvastatin 20 Mg Tablet PO 20 mg DAILY MICHELL Administration Bupropion HCl 150 mg 11/17/20 09:00 11/17/20 08:22 Bupropion Hcl Sr (12 Hr) 150 Mg Tab PO 150 mg DAILY MICHELL Administration Carvedilol 25 mg 11/17/20 09:00 11/17/20 08:22 Carvedilol 25 Mg Tablet PO 25 mg Q12HR MICHELL Administration Diphenhydramine HCl 25 mg 11/17/20 10:10 11/17/20 10:29 Diphenhydramine Hcl Cap 25 Mg Capsule PO 25 mg Q6H PRN Administration Itching Docusate Sodium 100 mg 11/17/20 21:00 Docusate Sodium 100 Mg Capsule PO HS MICHELL Epoetin Adalid-epbx 10,000 units 11/17/20 19:15 Epoetin Adalid-Epbx 10,000 Units/Ml Vial IV PUSH 11/17/20 19:16 ONCE ONE Famotidine 20 mg 11/17/20 09:00 11/17/20 08:22 Famotidine 20 Mg Tablet PO 20 mg QAM MICHELL Administration Piperacillin Sod/Tazobactam Sod 2.25 gm in 50 mls @ 100 mls/hr
[2020-11-17 11:37] LABS: Albumin Level 2.8 g/dL (3.5-5.1); Anion Gap 17 mmol/L (8-16); Blood Urea Nitrogen 72 mg/dL (7-17); Calcium 8.6 mg/dL (8.4-10.2); Carbon Dioxide 25 mmol/L (22-30); Chloride 89 mmol/L (98-107); Estimated CRCL calculation 7 ml/min; Estimated Glomerular Filt Rate 5; Glucose 144 mg/dL (65-110); Phosphorus 8.7 mg/dL (2.5-4.5); Potassium 4.3 mmol/L (3.4-5.0); Sodium 131 mmol/L (137-145)
[2020-11-17] MEDS: EPOETIN ALFA-EPBX 10,000 UNITS/ML VIAL 10000 UNITS IV PUSH (11:45)
--- NOTE | 2020-11-17 15:18 | PM.IMPN ---
Progress Note: A&P Assessment and Plan (1) Acute respiratory failure with hypoxia: Code(s): J96.01 - Acute respiratory failure with hypoxia Status: Acute Assessment and Plan: Likely due to pulmonary edema the patient missed 2 dialysis days -she is feeling better with dialysis and we will wean her oxygen down -chest CT showed mild pulmonary edema, no evidence of acute infection. -patient has been vaccinated against COVID-19 with [employer] in May. COVID less likely -PE less likely, she is on eliquis (decreased dose). If she does not improve consider CTA -no sick contacts -wean oxygen as tolerated, likely discharge in 1-2 days (2) Altered mental status, unspecified: Qualifiers: Altered mental status type: unspecified Qualified Code(s): R41.82 - Altered mental status, unspecified Code(s): R41.82 - Altered mental status, unspecified Status: Acute Assessment and Plan: Resolved, likely due to uremia due to missing dialysis -no evidence of neurological deficits -chronic strokes noted on she did, patient states she had a stroke 4 years ago -she had a fall out of her bed on Sunday prior to admission but did not hit her head. She hit her left knee (3) End-stage renal disease needing dialysis: Code(s): N18.6 - End stage renal disease; Z99.2 - Dependence on renal dialysis Status: Acute Assessment and Plan: Typical dialysis day is Sunday and Sunday -reinforce the importance of making her dialysis to avoid future hospitalizations (4) Contusion of knee, left: Qualifiers: Encounter type: initial encounter Qualified Code(s): S80.02XA - Contusion of left knee, initial encounter Code(s): S80.02XA - Contusion of left knee, initial encounter Status: Acute Assessment and Plan: No deformity on physical exam -obtain x-ray (5) Osteomyelitis of foot, right, acute: Code(s): M86.171 - Other acute osteomyelitis, right ankle and foot Status: Acute Assessment and Plan: Status post debridement and excision -Wound VAC in place, wound RN consulted and states it looks like it is healing well -antibiotics discontinued, no evidence of infection and white blood cell count is normal (6) Neuropathy due to type 2 diabetes mellitus: Code(s): E11.40 - Type 2 diabetes mellitus with diabetic neuropathy, unspecified Status: Acute Assessment and Plan: Unchanged (7) Venous stasis dermatitis of both lower extremities: Code(s): I87.2 - Venous insufficiency (chronic) (peripheral) Status: Acute Assessment and Plan: Unchanged (8) Grade II diastolic dysfunction: Code(s): I51.9 - Heart disease, unspecified Status: Chronic Assessment and Plan: Appears euvolemic after dialysis -3000 mL removed (9) Insulin dependent type 2 diabetes mellitus: Code(s): E11.9 - Type 2 diabetes mellitus without complications; Z79.4 - ferry terminal agent (current) use of insulin Status: Chronic Assessment and Plan: Last glucose 144 -continue long-acting insulin -continue sliding scale insulin (10) Morbid obesity with BMI of 45.0-49.9, adult: Code(s): E66.01 - Morbid (severe) obesity due to excess calories; Z68.42 - Body mass index [BMI] 45.0-49.9, adult Status: Acute Assessment and Plan: Patient educated that weight loss is very important -PT and OT ordered Time Spent With Patient Time with patient: 25 - 35 minutes Subjective Date/time seen: 11/17/20 15:19 Interval history: Pt is a 70-year-old female here for shortness of breath. Patient states she is feeling much better after dialysis. She does not feel short of breath at rest, have a cough, or have any cold-like symptoms. She said she missed 2 different dialysis days and this usually happens to her if she misses it. She denies chest pain, fevers, nausea, vomit
[2020-11-17 18:14] LABS: Glucose Point of Care 142 mg/dl (65-105)
[2020-11-17] MEDS: DOCUSATE SODIUM 100 MG CAPSULE PO (20:40)
[2020-11-17] MEDS: INSULIN GLARGINE (*BKC) 100 UNITS/ML 12 UNITS SUB-Q (20:46)
[2020-11-17 22:56] LABS: Glucose Point of Care 216 mg/dl (65-105)
[2020-11-18] VITALS (13 sets, daily range): BP systolic 123–169; BP diastolic 46–85; PULSE 54–80; RESP 16–18; TEMP 36.1–37; O2SAT 90–99
--- NOTE | 2020-11-18 | ECHO_ITS ---
Patient Info Name: Kelley Rodriguez Age: 70 years : 1950 Gender: Female Ht: 62 in Wt: 246 lbs BSA: 2.28 m2 HR: 71 bpm BP: 169 / 79 mmHg Heart Rhythm: Sinus Rhythm Technical Quality: Good Exam Date: 11/18/2020 2:56 PM Exam Location: [facility] Patient Status: Inpatient Admit Date: 11/18/2020 Staff Ordering Physician: Sofia Dumont PA-C Recovery Agent: JENNIFER Attending Provider: Sofia Dumont PA-C Referring Physician: YASIR, NUR[facility] ; Exam Type: CA echo doppler color flow Study Info Indications J96.91 - Respiratory failure, unspecified with hypoxia Complete two-dimensional, color flow and Doppler transthoracic echocardiogram is performed. Summary 1. Complete two-dimensional, color flow and Doppler transthoracic echocardiogram is performed. 2. Left ventricular chamber dimension is normal. 3. Left ventricular systolic function is normal, estimated at 60-65%. 4. There is mildly increased left ventricular wall thickness. 5. Left ventricular septal wall motion is abnormal with septal motion related to bundle branch block. 6. The left ventricular diastolic function is grade II diastolic dysfunction. 7. Right ventricular chamber dimension is mildly enlarged. 8. Left atrial chamber dimension is moderately enlarged. 9. There is mild aortic valve stenosis with a peak velocity of 148 cm/s, mean gradient of 4 mmHg, and aortic valve area of 1.7 cm2. 10. There is moderate tricuspid valve regurgitation. 11. Moderate pulmonary hypertension, estimated pulmonary arterial systolic pressure is 51 mmHg. Left Ventricle Left ventricular chamber dimension is normal. Left ventricular systolic function is normal, estimated at 60-65%. There is mildly increased left ventricular wall thickness. Left ventricular septal wall motion is abnormal with septal motion related to bundle branch block. The left ventricular diastolic function is grade II diastolic dysfunction. Right Ventricle Right ventricular chamber dimension is mildly enlarged. Right ventricular systolic function is normal. Left Atria Left atrial chamber dimension is moderately enlarged. Right Atria Right atrial chamber dimension is normal. Aortic Valve The aortic valve is probable trileaflet. There is mild aortic valve sclerosis. There is mild aortic valve stenosis with a peak velocity of 148 cm/s, mean gradient of 4 mmHg, and aortic valve area of 1.7 cm2. There is no aortic valve regurgitation. Pulmonic Valve The pulmonic valve is not well visualized. Mitral Valve The mitral valve has normal leaflets. There is mild mitral valve regurgitation. The mitral valve annulus is moderately calcified. Tricuspid Valve The tricuspid valve leaflets are normal. There is moderate tricuspid valve regurgitation. Moderate pulmonary hypertension, estimated pulmonary arterial systolic pressure is 51 mmHg. Pericardium/Pleural The pericardium appears normal. There is no pericardial effusion. Inferior Vena Cava Dilated inferior vena cava with <50% collapse upon inspiration consistent with elevated right atrial pressure, 10 mmHg. Aorta The aortic root size at the sinus of Valsalva is normal. The prox ascending aorta size is normal. There is mild aortic atherosclerosis. Left Ventricular Outflow Tract Name Value Normal
[2020-11-18] MEDS: ACETAMINOPHEN 500 MG TABLET 1000 MG PO (02:48)
[2020-11-18 07:08] LABS: Hematocrit 26.9 % (37.0-47.0); Hemoglobin 8.3 g/dL (12.0-15.0)
[2020-11-18 07:29] LABS: Anion Gap 8 mmol/L (8-16); Blood Urea Nitrogen 39 mg/dL (7-17); Calcium 8.9 mg/dL (8.4-10.2); Carbon Dioxide 27 mmol/L (22-30); Chloride 102 mmol/L (98-107); Estimated CRCL calculation 12 ml/min; Estimated Glomerular Filt Rate 9; Glucose 110 mg/dL (65-110); Sodium 137 mmol/L (137-145)
[2020-11-18] MEDS: ATORVASTATIN 20 MG TABLET PO (08:30)
[2020-11-18] MEDS: allopurinoL 100 MG TABLET PO (08:30)
[2020-11-18] MEDS: FAMOTIDINE 20 MG TABLET PO (08:30)
[2020-11-18] MEDS: buPROPion HCL SR (12 HR) 150 MG TAB PO (08:30)
[2020-11-18] MEDS: APIXABAN 2.5 MG TABLET PO ×2 (08:30→16:45)
[2020-11-18 08:36] LABS: Glucose Point of Care 85 mg/dl (65-105)
--- NOTE | 2020-11-18 09:50 | PM.CNNEP ---
Assessment and Plan Assessment and plan (1) End stage renal disease: Code(s): N18.6 - End stage renal disease Status: Chronic Assessment and Plan: HD today and continue T/T/S schedule continue efforts to optimize electrolytes, volume status, and clearance (2) Altered mental status: Code(s): R41.82 - Altered mental status, unspecified Status: Acute Assessment and Plan: due to missed dialysis versus hypoxia or combination of both? clinically better at this time follow mentation with current therapy (3) Acute respiratory failure with hypoxia: Code(s): J96.01 - Acute respiratory failure with hypoxia Status: Acute Assessment and Plan: due to fluid overload and missed dialysis push fluid removal as tolerated with HD treatments wean oxygen as tolerated (4) Osteomyelitis of foot, right, acute: Code(s): M86.171 - Other acute osteomyelitis, right ankle and foot Status: Acute Assessment and Plan: wound vac in place wound care following on antibiotics (5) Contusion of knee, left: Qualifiers: Encounter type: initial encounter Qualified Code(s): S80.02XA - Contusion of left knee, initial encounter Code(s): S80.02XA - Contusion of left knee, initial encounter Status: Acute Assessment and Plan: due to recent fall local care pain control (6) Diabetes: Code(s): E11.9 - Type 2 diabetes mellitus without complications Status: Acute Assessment and Plan: follow accuchecks glycemic control Will continue to follow. History of Present Illness Reason for Consult Consult date: 11/18/20 Reason for consult: end stage renal disease Chief Complaint Chief complaint: AMS, ESRD Needing Dialysis History of Present Illness Narrative: The patient is a 70-year-old female with a past medical history as outlined below who presented to [facility] ER for hypoxia, weakness, and confusion. Some of the information I have obtained is from review of the electronic medical record as well as discussion with the ER physician on the evening of admission supplemented by what the patient stated as she was mildy confusion on presentation to the hospital. The patient was recently hospitalized here for a right foot necrotic ulcer that was complicated by osteomyelitis that required extensive excision/debridement as well as a wound VAC placement and antibiotic therapy. She was discharge to a nursing facility for ongoing wound care management as well as antibiotic therapy for this issue /problem. Apparently, she has had increasing weakness and fatigue to the point where she has had recent falls. Furthermore, she apparently has not been able to get receive her dialysis treatments due to inability to get to her outpatient dialysis center (transportation was not set up or unable to get her to her dialysis center from her nursing facility?). Apparently, she was noted be more confused and hypoxic which prompted the transfer to the ER for further evaluation. Workup and evaluation emergency room demonstrated the patient to be hemodynamically stable and was apparently slightly hypoxic and with application of 2 L of oxygen by nasal cannula her O2 saturations improved to the low 90s to mid 90s percentile range. Subsequent testing demonstrated labs consistent with her known history of end-stage renal disease; her CT of her head and chest were unrevealing aside from some pulmonary vascular congestion as well. Given her constellation of symptoms and complex past medical history, she was admitted the hospital for further evaluation and therapy Since her admission, she received dialysis yesterday and is scheduled for dialysis today to get her back on to her Sunday dialysis schedule as well as maximize fluid removal for optimization of her volume status as well as maintain stability in her electrolytes and c
--- NOTE | 2020-11-18 10:51 | PCPTNOTE ---
Attempted PT eval, pt in dialysis. Will try again at later time.
[2020-11-18] MEDS: EPOETIN ALFA-EPBX 10,000 UNITS/ML VIAL 10000 UNITS IV PUSH (11:00)
[2020-11-18 14:06] LABS: Glucose Point of Care 70 mg/dl (65-105)
[2020-11-18] MEDS: amLODIPine BESYLATE 5 MG TABLET 10 MG PO (14:07)
[2020-11-18] MEDS: carvediloL 25 MG TABLET PO ×2 (14:07→23:13)
[2020-11-18] MEDS: LIDOCAINE 5% PATCH 1 PATCH TRANSDERM (14:08)
--- NOTE | 2020-11-18 14:36 | PM.IMPN ---
Progress Note: A&P Assessment and Plan (1) Acute respiratory failure with hypoxia: Code(s): J96.01 - Acute respiratory failure with hypoxia Status: Acute Assessment and Plan: Likely due to pulmonary edema the patient missed 2 dialysis days -she is feeling better with dialysis but we are unable to wean her o2 down at this time -obtain repeat CXR, apnea link, and echo -chest CT showed mild pulmonary edema, no evidence of acute infection. -patient has been vaccinated against COVID-19 with [employer] in May. COVID less likely -PE less likely, she is on eliquis (decreased dose). If she does not improve consider CTA on dialysis day. order LE u/s -no sick contacts -wean oxygen as tolerated, likely discharge in 1-2 days (2) Altered mental status, unspecified: Qualifiers: Altered mental status type: unspecified Qualified Code(s): R41.82 - Altered mental status, unspecified Code(s): R41.82 - Altered mental status, unspecified Status: Acute Assessment and Plan: Resolved, likely due to uremia due to missing dialysis -no evidence of neurological deficits -chronic strokes noted on she did, patient states she had a stroke 4 years ago -she had a fall out of her bed on Sunday prior to admission but did not hit her head. She hit her left knee (3) End-stage renal disease needing dialysis: Code(s): N18.6 - End stage renal disease; Z99.2 - Dependence on renal dialysis Status: Acute Assessment and Plan: Typical dialysis day is Sunday and Sunday -reinforce the importance of making her dialysis to avoid future hospitalizations (4) Contusion of knee, left: Qualifiers: Encounter type: initial encounter Qualified Code(s): S80.02XA - Contusion of left knee, initial encounter Code(s): S80.02XA - Contusion of left knee, initial encounter Status: Acute Assessment and Plan: No deformity on physical exam -xray shows arthritis -will try lidoderm patch -f/u for outpt cortisone shot (5) Osteomyelitis of foot, right, acute: Code(s): M86.171 - Other acute osteomyelitis, right ankle and foot Status: Acute Assessment and Plan: Status post debridement and excision -Wound VAC in place, wound RN consulted and states it looks like it is healing well -antibiotics discontinued, no evidence of infection and white blood cell count is normal (6) Neuropathy due to type 2 diabetes mellitus: Code(s): E11.40 - Type 2 diabetes mellitus with diabetic neuropathy, unspecified Status: Acute Assessment and Plan: Unchanged (7) Venous stasis dermatitis of both lower extremities: Code(s): I87.2 - Venous insufficiency (chronic) (peripheral) Status: Acute Assessment and Plan: Unchanged (8) Grade II diastolic dysfunction: Code(s): I51.9 - Heart disease, unspecified Status: Chronic Assessment and Plan: Appears euvolemic after dialysis -3000 mL removed 11/17 and 1000mls removed 11/18 (9) Insulin dependent type 2 diabetes mellitus: Code(s): E11.9 - Type 2 diabetes mellitus without complications; Z79.4 - keno terminal operator (current) use of insulin Status: Chronic Assessment and Plan: Last glucose 70 -decrease dose of long-acting insulin -continue sliding scale insulin -a1c 6.6 (10) Morbid obesity with BMI of 45.0-49.9, adult: Code(s): E66.01 - Morbid (severe) obesity due to excess calories; Z68.42 - Body mass index [BMI] 45.0-49.9, adult Status: Acute Assessment and Plan: Patient educated that weight loss is very important -PT and OT ordered Subjective Date/time seen: 11/18/20 14:36 Interval history: Pt is a 70-year-old female here for shortness of breath. Patient was seen today during dialysis and her only complaint is her left knee. She says she has arthritis in that knee and then fell on it 2 weeks ago an
[2020-11-18 17:00] LABS: Glucose Point of Care 118 mg/dl (65-105)
[2020-11-18] MEDS: DOCUSATE SODIUM 100 MG CAPSULE PO (21:16)
[2020-11-18] MEDS: INSULIN GLARGINE (*BKC) 100 UNITS/ML 12 UNITS SUB-Q (21:16)
[2020-11-18 22:19] LABS: Glucose Point of Care 165 mg/dl (65-105)
[2020-11-19] VITALS (7 sets, daily range): BP systolic 119–139; BP diastolic 48–65; PULSE 55–64; RESP 12–20; TEMP 36.5–36.7; O2SAT 93–98
[2020-11-19 06:42] LABS: Albumin Level 3.1 g/dL (3.5-5.1); Anion Gap 9 mmol/L (8-16); Blood Urea Nitrogen 22 mg/dL (7-17); Calcium 8.9 mg/dL (8.4-10.2); Carbon Dioxide 26 mmol/L (22-30); Chloride 103 mmol/L (98-107); Estimated CRCL calculation 15 ml/min; Estimated Glomerular Filt Rate 11; Glucose 95 mg/dL (65-110); Phosphorus 4.6 mg/dL (2.5-4.5); Sodium 138 mmol/L (137-145)
[2020-11-19 09:11] LABS: Glucose Point of Care 84 mg/dl (65-105)
[2020-11-19] MEDS: amLODIPine BESYLATE 5 MG TABLET 10 MG PO (09:47)
[2020-11-19] MEDS: ATORVASTATIN 20 MG TABLET PO (09:48)
[2020-11-19] MEDS: carvediloL 25 MG TABLET PO ×2 (09:48→21:05)
[2020-11-19] MEDS: buPROPion HCL SR (12 HR) 150 MG TAB PO (09:48)
--- NOTE | 2020-11-19 09:48 | PM.PNORT ---
Progress Note: A&P Assessment and Plan (1) Osteomyelitis of foot, right, acute: Code(s): M86.171 - Other acute osteomyelitis, right ankle and foot Status: Acute Assessment and Plan: 3 weeks, 1 day s/p excision rt foot osteo, excisional debridement debride DFU. Patient currently undergoing wound VAC dressing changes at her facility. She was awaiting outpatient wound clinic f/u on 11/30; however, due to her HD schedule she will not be able to make that appointment. We will coordinate and schedule accordingly. Continue wound VAC at this time. Elevate RLE. PWB on heel. No signs of recurrent or acute infection. Will continue to monitor. Subjective Subjective Date/Time Seen: 11/19/20 09:48 Interval history: 3 weeks, 1 day s/p excision rt foot osteo, excisional debridement debride dfu No new complaints regarding wound. Patient reports wound VAC changes at facility are going well overall. No new concerns. Review of Systems Review of Systems: All systems reviewed & are unremarkable except as noted in HPI and below Exam Const: General: cooperative, comfortable, no acute distress and alert Orientation/consciousness: patient oriented x3 HENMT: Head: normal to inspection Eyes: General: appearance normal, both eyes and all related structures Conjunctivae: conjunctivae normal Neck: Neck: normal visual inspection Chest: Chest palpation & inspection: normal inspection of the chest Resp: Effort & Inspection: normal respiratory effort and able to speak in complete sentences Cardio: Jugular venous distension: no JVD Rate: regular rate and bradycardic Rhythm: regular rhythm Skin: Lesions: lesion noted (Right plantar foot ) Other: Wound VAC dressing in place on the plantar aspect of the right foot. Scant serosanguineous drainage in the chamber currently. Patient has bilateral lower extremity edema consistent with lymphedema. Neuro: General: moves all extremities and no focal motor deficits Extrem: Right lower extremity: lower leg ( Lymphedema and venous stasis changes, crusted areas, no open weeping) Details: non-pitting edema and abrasion ( Anterior leg just below the knee); no crepitus, ankle ( Positive ankle dorsiflexion/ plantar flexion) Details: swelling and foot ( palpable pedal pulse) Details: edema, motor-sensory exam Details: light-touch abnormal Location: in all toes and other ( wound, see below); no tenderness, no unusual warmth, no ecchymosis and no crepitus Left lower extremity: lower leg ( lymphedema and chronic venous stasis changes.) Details: pitting edema and other ( no pain when) Other: Wound VAC dressing in place Psych: Appearance: disheveled Insight: Fair insight present (Psych) Judgement: Fair judgement present (Psych) Objective Data Vital Signs Vital Signs: Vital Signs - 24 hr 11/18/20 10:25 11/18/20 10:30 11/18/20 11:30 Temperature 36.7 C Pulse Rate 56 L 54 L 58 L Respiratory Rate 18 Blood Pressure 131/64 133/64 147/72 H Pulse Oximetry 11/18/20 12:30 11/18/20 13:30 11/18/20 13:48 Temperature 36.6 C Pulse Rate 59 L 58 L 60 Respiratory Rate 18 Blood Pressure 144/67 H 136/78 169/79 H Pulse Oximetry 11/18/20 14:00 11/18/20 14:07 11/18/20 22:00 Temperature 36.9 C 36.6 C Pulse Rate 80 66 62 Respiratory Rate 16 16 Blood Pressure 131/85 129/46 L Pulse Oximetry 96 99 11/18/20 22:15 11/18/20 23:13 11/19/20 06:00 Temperature 36.7 C Pulse Rate 62 61 Respiratory Rate 18 Blood Pressure 139/65 Pulse Oximetry 98 98 11/19/20 08:16 Temperature Pulse Rate Respiratory Rate Blood Pressure Pulse Oximetry 93 Intake/Output Intake/Output: Intake & Output 11/16/20 11/17/20 11/18/20 11/19/20 23:59 23:59 23:59 23:59 Intake Total 960 670 100 Output Total 3000 1000 Balance -2040 -330 100 Meds/Results Medications: Active Medications Generic Name Dose Route Start Last Admin Trade Name Freq PRN Reason Stop Dose Admin Allopuri
[2020-11-19] MEDS: allopurinoL 100 MG TABLET PO (09:49)
[2020-11-19] MEDS: FAMOTIDINE 20 MG TABLET PO (09:49)
[2020-11-19] MEDS: APIXABAN 2.5 MG TABLET PO ×2 (09:49→17:25)
[2020-11-19] MEDS: LIDOCAINE 5% PATCH 1 PATCH TRANSDERM (09:49)
[2020-11-19 11:02] LABS: Hepatitis B Surface Antigen Negative (Negative)
[2020-11-19 11:20] LABS: Hepatitis B Surface Anti Res Negative
[2020-11-19] MEDS: ACETAMINOPHEN 325 MG TABLET 650 MG PO (11:34)
--- NOTE | 2020-11-19 11:45 | P.CDI_ITS ---
CDI Query Clarification Request -Pulmonary edema and chest CT showed mild pulmonary edema has been documented -Patient received hemodialysis on 11/17 and 11/18. Please further specify acuity of pulmonary edema: * Acute * Chronic * Acute on chronic * Unable to determine
[2020-11-19 13:13] LABS: Glucose Point of Care 117 mg/dl (65-105)
--- NOTE | 2020-11-19 13:53 | P.PNNP_ITS ---
Progress Note: A&P Assessment and Plan (1) End stage renal disease: Code(s): N18.6 - End stage renal disease Status: Chronic Assessment and Plan: * HD tomorrow and continue T/T/S schedule * continue efforts to optimize electrolytes, volume status, and clearance (2) Altered mental status: Code(s): R41.82 - Altered mental status, unspecified Status: Acute Assessment and Plan: * improving if not resolved * due to missed dialysis versus hypoxia or combination of both? * follow mentation (3) Acute respiratory failure with hypoxia: Code(s): J96.01 - Acute respiratory failure with hypoxia Status: Acute Assessment and Plan: * due to fluid overload and missed dialysis * push fluid removal as tolerated with HD treatments * wean oxygen as tolerated (4) Osteomyelitis of foot, right, acute: Code(s): M86.171 - Other acute osteomyelitis, right ankle and foot Status: Acute Assessment and Plan: * wound vac in place * local wound care * Orthopedics following as well (5) Contusion of knee, left: Qualifiers: Encounter type: initial encounter Qualified Code(s): S80.02XA - Contusion of left knee, initial encounter Code(s): S80.02XA - Contusion of left knee, initial encounter Status: Acute Assessment and Plan: * due to recent fall * local care * x-rays consistnet with DJD/osteoarthritis * pain control (6) Diabetes: Code(s): E11.9 - Type 2 diabetes mellitus without complications Status: Acute Assessment and Plan: * follow accuchecks * glycemic control Will continue to follow. Subjective Date/time seen: 11/19/20 13:53 Tolerated dialysis yesterday but fluid removal with HD limited by fluctuations in blood pressure; however, she states her shortness of breath is doing better; no issues or problems overnight earlier this AM; no apparent distress voiced at the time of my visit. Exam Narrative: General: WD/WN male in NAD Heart: normal S1 and S2; no rub Lungs: clear to auscultation Abdomen: soft, nontender, nondistended, positive bowel sounds Extremities: no cyanosis or clubbing; trace - 1+ edema Skin: right foot wound VAC in place; bilateral lower extremity venous stasis dermatitis changes Objective Data Vital Signs Vital Signs: Vital Signs Temp Pulse Resp BP Pulse Ox 11/19/20 10:14 95 11/19/20 09:48 64 11/19/20 08:16 93 11/19/20 06:00 36.7 C 61 18 139/65 98 11/18/20 23:13 62 11/18/20 22:15 98 11/18/20 22:00 36.6 C 62 16 129/46 L 99 Intake/Output Intake/Output: Intake & Output 11/16/20 11/17/20 11/18/20 11/19/20 23:59 23:59 23:59 23:59 Intake Total 960 670 700 Output Total 3000 1000 Balance -2040 -330 700 Meds/Results Medications: Active Medications Generic Name Dose Route Start Last Admin Trade Name Freq PRN Reason Stop Dose Admin Acetaminophen 650 mg 11/19/20 11:21 11/19/20 11:34 Acetaminophen 325 Mg Tablet PO 650 mg Q6H PRN Administration Mild Pain (1-3) or Fever Allopurinol 100 mg 11/17/20 08:00 11/19/20 09:49 Allopurinol 100 Mg Tablet PO 100 mg DAILY@0800 [facility] Administratio
--- NOTE | 2020-11-19 13:53 | PM.PNNEP ---
Progress Note: A&P Assessment and Plan (1) End stage renal disease: Code(s): N18.6 - End stage renal disease Status: Chronic Assessment and Plan: HD tomorrow and continue T/T/S schedule continue efforts to optimize electrolytes, volume status, and clearance (2) Altered mental status: Code(s): R41.82 - Altered mental status, unspecified Status: Acute Assessment and Plan: improving if not resolved due to missed dialysis versus hypoxia or combination of both? follow mentation (3) Acute respiratory failure with hypoxia: Code(s): J96.01 - Acute respiratory failure with hypoxia Status: Acute Assessment and Plan: due to fluid overload and missed dialysis push fluid removal as tolerated with HD treatments wean oxygen as tolerated (4) Osteomyelitis of foot, right, acute: Code(s): M86.171 - Other acute osteomyelitis, right ankle and foot Status: Acute Assessment and Plan: wound vac in place local wound care Orthopedics following as well (5) Contusion of knee, left: Qualifiers: Encounter type: initial encounter Qualified Code(s): S80.02XA - Contusion of left knee, initial encounter Code(s): S80.02XA - Contusion of left knee, initial encounter Status: Acute Assessment and Plan: due to recent fall local care x-rays consistnet with DJD/osteoarthritis pain control (6) Diabetes: Code(s): E11.9 - Type 2 diabetes mellitus without complications Status: Acute Assessment and Plan: follow accuchecks glycemic control Will continue to follow. Subjective Date/time seen: 11/19/20 13:53 Tolerated dialysis yesterday but fluid removal with HD limited by fluctuations in blood pressure; however, she states her shortness of breath is doing better; no issues or problems overnight earlier this AM; no apparent distress voiced at the time of my visit. Exam Narrative: General: WD/WN male in NAD Heart: normal S1 and S2; no rub Lungs: clear to auscultation Abdomen: soft, nontender, nondistended, positive bowel sounds Extremities: no cyanosis or clubbing; trace - 1+ edema Skin: right foot wound VAC in place; bilateral lower extremity venous stasis dermatitis changes Objective Data Vital Signs Vital Signs: Vital Signs Temp Pulse Resp BP Pulse Ox 11/19/20 10:14 95 11/19/20 09:48 64 11/19/20 08:16 93 09/03/21 06:00 36.7 C 61 18 139/65 98 11/18/20 23:13 62 11/18/20 22:15 98 11/18/20 22:00 36.6 C 62 16 129/46 L 99 Intake/Output Intake/Output: Intake & Output 11/16/20 11/17/20 11/18/20 11/19/20 23:59 23:59 23:59 23:59 Intake Total 960 670 700 Output Total 3000 1000 Balance -2040 -330 700 Meds/Results Medications: Active Medications Generic Name Dose Route Start Last Admin Trade Name Freq PRN Reason Stop Dose Admin Acetaminophen 650 mg 11/19/20 11:21 11/19/20 11:34 Acetaminophen 325 Mg Tablet PO 650 mg Q6H PRN Administration Mild Pain (1-3) or Fever Allopurinol 100 mg 11/17/20 08:00 11/19/20 09:49 Allopurinol 100 Mg Tablet PO 100 mg DAILY@0800 MICHELL Administration Amlodipine Besylate 10 mg 11/17/20 09:00 11/19/20 09:47 Amlodipine Besylate 5 Mg Tablet PO 10 mg DAILY MICHELL Administration Apixaban 2.5 mg 11/17/20 09:00 11/19/20 09:49 Apixaban 2.5 Mg Tablet PO 2.5 mg BID MICHELL Administration Atorvastatin Calcium 20 mg 11/17/20 09:00 11/19/20 09:48 Atorvastatin 20 Mg Tablet PO 20 mg DAILY MICHELL Administration Bupropion HCl 150 mg 11/17/20 09:00 11/19/20 09:48 Bupropion Hcl Sr (12 Hr) 150 Mg Tab PO 150 mg DAILY MICHELL Administration Carvedilol 25 mg 11/17/20 09:00 11/19/20 09:48 Carvedilol 25 Mg Tablet PO 25 mg Q12HR MICHELL Administration Dextrose 12.5 gm 11/17/20 15:13 Dextrose 50% 25 Gm/50 Ml Syringe IV PUSH PRN PRN Hypoglycemia
--- NOTE | 2020-11-19 13:55 | PM.IMPN ---
Progress Note: A&P Assessment and Plan (1) Acute respiratory failure with hypoxia: Code(s): J96.01 - Acute respiratory failure with hypoxia Status: Acute Assessment and Plan: Likely due to pulmonary edema as the patient missed 2 dialysis days prior to admission -CXR still showing edema, give one dose of bumex -Pt is looking better and weaning off o2 -apnea link shows she is at risk for BRENDA, will need screening after d/c -echo shows diastolic dysfunction, no systolic dysfunction -patient has been vaccinated against COVID-19 with [employer] in May. COVID less likely -PE less likely, she is on eliquis (decreased dose). No LE DVT -no sick contacts -wean oxygen as tolerated. Plan for d/c tomorrow (2) Altered mental status, unspecified: Qualifiers: Altered mental status type: unspecified Qualified Code(s): R41.82 - Altered mental status, unspecified Code(s): R41.82 - Altered mental status, unspecified Status: Acute Assessment and Plan: Resolved, likely due to uremia due to missing dialysis -no evidence of neurological deficits -chronic strokes noted on she did, patient states she had a stroke 4 years ago -she had a fall out of her bed on Sunday prior to admission but did not hit her head. She hit her left knee (3) End-stage renal disease needing dialysis: Code(s): N18.6 - End stage renal disease; Z99.2 - Dependence on renal dialysis Status: Acute Assessment and Plan: Typical dialysis day is Sunday and Sunday -reinforce the importance of making her dialysis to avoid future hospitalizations (4) Contusion of knee, left: Qualifiers: Encounter type: initial encounter Qualified Code(s): S80.02XA - Contusion of left knee, initial encounter Code(s): S80.02XA - Contusion of left knee, initial encounter Status: Acute Assessment and Plan: No deformity on physical exam -xray shows arthritis -continue lidoderm patch -f/u for outpt cortisone shot (5) Osteomyelitis of foot, right, acute: Code(s): M86.171 - Other acute osteomyelitis, right ankle and foot Status: Acute Assessment and Plan: Status post debridement and excision -wound care onboard, wound vac has been discontinued -antibiotics discontinued, no evidence of infection and white blood cell count is normal (6) Neuropathy due to type 2 diabetes mellitus: Code(s): E11.40 - Type 2 diabetes mellitus with diabetic neuropathy, unspecified Status: Acute Assessment and Plan: Unchanged (7) Venous stasis dermatitis of both lower extremities: Code(s): I87.2 - Venous insufficiency (chronic) (peripheral) Status: Acute Assessment and Plan: Unchanged (8) Grade II diastolic dysfunction: Code(s): I51.9 - Heart disease, unspecified Status: Chronic Assessment and Plan: Acute on chronic -Appears euvolemic after dialysis -3000 mL removed 11/17 and 1000mls removed 11/18 -plan for dialysis tomorrow and then to d/c (9) Insulin dependent type 2 diabetes mellitus: Code(s): E11.9 - Type 2 diabetes mellitus without complications; Z79.4 - terminal operator (current) use of insulin Status: Chronic Assessment and Plan: Last glucose 117 -decrease dose of long-acting insulin -continue sliding scale insulin -a1c 6.6 (10) Morbid obesity with BMI of 45.0-49.9, adult: Code(s): E66.01 - Morbid (severe) obesity due to excess calories; Z68.42 - Body mass index [BMI] 45.0-49.9, adult Status: Acute Assessment and Plan: Patient educated that weight loss is very important -PT and OT ordered Subjective Date/time seen: 11/19/20 13:55 Interval history: Pt is a 70-year-old female here for shortness of breath. Patient was seen today and says she is doing better. She has less SOB today. She last made urine about 3 days ago. No CP, fevers, chills, n
[2020-11-19 16:19] LABS: Glucose Point of Care 121 mg/dl (65-105)
[2020-11-19] MEDS: BUMETANIDE INJ 1 MG/4 ML VIAL IV PUSH (17:24)
[2020-11-19] MEDS: INSULIN GLARGINE (*BKC) 100 UNITS/ML 8 UNITS SUB-Q (21:06)
[2020-11-19] MEDS: DOCUSATE SODIUM 100 MG CAPSULE PO (21:06)
[2020-11-19 21:10] LABS: Glucose Point of Care 133 mg/dl (65-105)
[2020-11-20] VITALS (13 sets, daily range): BP systolic 90–279; BP diastolic 47–96; PULSE 58–66; RESP 14–20; TEMP 36.1–37; O2SAT 95–100
--- NOTE | 2020-11-20 08:05 | PC.NURSE ---
[facility] Nurse made aware of tx order scheduled for this date at 0807.
[2020-11-20 08:15] LABS: Glucose Point of Care 78 mg/dl (65-105)
[2020-11-20] MEDS: FAMOTIDINE 20 MG TABLET PO (08:52)
[2020-11-20] MEDS: buPROPion HCL SR (12 HR) 150 MG TAB PO (08:52)
[2020-11-20] MEDS: ATORVASTATIN 20 MG TABLET PO (08:52)
[2020-11-20] MEDS: allopurinoL 100 MG TABLET PO (08:52)
[2020-11-20] MEDS: APIXABAN 2.5 MG TABLET PO ×2 (08:53→16:36)
[2020-11-20] MEDS: LIDOCAINE 5% PATCH 1 PATCH TRANSDERM (08:53)
[2020-11-20 10:07] LABS: Albumin Level 3.2 g/dL (3.5-5.1); Anion Gap 10 mmol/L (8-16); Blood Urea Nitrogen 30 mg/dL (7-17); Calcium 9.1 mg/dL (8.4-10.2); Carbon Dioxide 26 mmol/L (22-30); Chloride 98 mmol/L (98-107); Estimated CRCL calculation 12 ml/min; Estimated Glomerular Filt Rate 9; Glucose 81 mg/dL (65-110); Phosphorus 5.1 mg/dL (2.5-4.5); Potassium 4.3 mmol/L (3.4-5.0); Sodium 134 mmol/L (137-145)
--- NOTE | 2020-11-20 10:25 | PCOTNOTE ---
Attempted therapy session x2 this date. 1st attempt patient having lab work completed in room and then breakfast tray arrived; patient requested therapy return at later time due to eating breakfast. 2nd attempt patient at dialysis. follow up as appropriate for OT treatment session.
[2020-11-20] MEDS: EPOETIN ALFA-EPBX 10,000 UNITS/ML VIAL 10000 UNITS IV PUSH (10:45)
--- NOTE | 2020-11-20 11:14 | PM.DS ---
DS: Admitting Diagnosis Admitting Diagnosis acute on chronic CHF, missed dialysis DS: Discharge Diagnosis Discharge Diagnosis (1) Acute respiratory failure with hypoxia: Code(s): J96.01 - Acute respiratory failure with hypoxia Status: Acute Assessment and Plan: Likely due to pulmonary edema as the patient missed 2 dialysis days prior to admission -CXR slight worsening with pt improvement--could be lagging behind clinical course. Pt continues to have cough. will add augmentin for PNA coverage -weaned off o2 -apnea link shows she is at risk for BRENDA, will need screening after d/c -echo shows diastolic dysfunction, no systolic dysfunction -patient has been vaccinated against COVID-19 with [employer] in May. COVID screen negative -PE less likely, she is on eliquis (decreased dose). No LE DVT -no sick contacts (2) Altered mental status, unspecified: Qualifiers: Altered mental status type: unspecified Qualified Code(s): R41.82 - Altered mental status, unspecified Code(s): R41.82 - Altered mental status, unspecified Status: Acute Assessment and Plan: Resolved, likely due to uremia due to missing dialysis -no evidence of neurological deficits -chronic strokes noted on CT, patient states she had a stroke 4 years ago -she had a fall out of her bed on Sunday prior to admission but did not hit her head. She hit her left knee (3) End-stage renal disease needing dialysis: Code(s): N18.6 - End stage renal disease; Z99.2 - Dependence on renal dialysis Status: Acute Assessment and Plan: Typical dialysis day is Sunday and Sunday -reinforce the importance of making her dialysis to avoid future hospitalizations -last dialysis here on sunday which removed 4L (4) Contusion of knee, left: Qualifiers: Encounter type: initial encounter Qualified Code(s): S80.02XA - Contusion of left knee, initial encounter Code(s): S80.02XA - Contusion of left knee, initial encounter Status: Acute Assessment and Plan: No deformity on physical exam -xray shows arthritis -continue lidoderm patch -f/u for outpt cortisone shot (5) Osteomyelitis of foot, right, acute: Code(s): M86.171 - Other acute osteomyelitis, right ankle and foot Status: Acute Assessment and Plan: Status post debridement and excision -wound care onboard and recommendations placed (6) Neuropathy due to type 2 diabetes mellitus: Code(s): E11.40 - Type 2 diabetes mellitus with diabetic neuropathy, unspecified Status: Acute Assessment and Plan: Unchanged (7) Venous stasis dermatitis of both lower extremities: Code(s): I87.2 - Venous insufficiency (chronic) (peripheral) Status: Acute Assessment and Plan: Unchanged (8) Grade II diastolic dysfunction: Code(s): I51.9 - Heart disease, unspecified Status: Chronic Assessment and Plan: Acute on chronic -Appears euvolemic after dialysis -3000 mL removed 11/17, 1000mls removed 11/18, 4000ml removed 11/20 (9) Insulin dependent type 2 diabetes mellitus: Code(s): E11.9 - Type 2 diabetes mellitus without complications; Z79.4 - custodial (current) use of insulin Status: Chronic Assessment and Plan: Last glucose 162 -decrease dose of long-acting insulin -a1c 6.6 (10) Morbid obesity with BMI of 45.0-49.9, adult: Code(s): E66.01 - Morbid (severe) obesity due to excess calories; Z68.42 - Body mass index [BMI] 45.0-49.9, adult Status: Acute Assessment and Plan: Patient educated that weight loss is very important -PT and OT ordered DS: Summary Hospital Course Hospital Course: Date of service November 20, 2020 Patient is a 70-year-old female with a history of end-stage renal disease, diabetes and hypertension on dialysis who presented emergency room for hypoxia and con
--- NOTE | 2020-11-20 11:33 | PCPTNOTE ---
Attempted to see patient for PT, however unable due to patient out of room for dialysis.
--- NOTE | 2020-11-20 11:37 | P.PNNP_ITS ---
Progress Note: A&P Assessment and Plan (1) End stage renal disease: Code(s): N18.6 - End stage renal disease Status: Chronic Assessment and Plan: * HD today and continue T/T/S schedule * continue efforts to optimize electrolytes, volume status, and clearance (2) Altered mental status: Code(s): R41.82 - Altered mental status, unspecified Status: Acute Assessment and Plan: * improving if not resolved * due to missed dialysis versus hypoxia or combination of both? * follow mentation (3) Acute respiratory failure with hypoxia: Code(s): J96.01 - Acute respiratory failure with hypoxia Status: Acute Assessment and Plan: * due to fluid overload and missed dialysis * push fluid removal as tolerated with HD treatments * wean oxygen as tolerated (4) Osteomyelitis of foot, right, acute: Code(s): M86.171 - Other acute osteomyelitis, right ankle and foot Status: Acute Assessment and Plan: * wound vac in place * local wound care * Orthopedics following as well (5) Contusion of knee, left: Qualifiers: Encounter type: initial encounter Qualified Code(s): S80.02XA - Contusion of left knee, initial encounter Code(s): S80.02XA - Contusion of left knee, initial encounter Status: Acute Assessment and Plan: * due to recent fall * local care * x-rays consistent with DJD/osteoarthritis * pain control (6) Diabetes: Code(s): E11.9 - Type 2 diabetes mellitus without complications Status: Acute Assessment and Plan: * follow accuchecks * glycemic control Will continue to follow. Subjective Date/time seen: 11/20/20 11:37 Tolerating dialysis at the time of my visit (seen on HD at 11:30am); no apparent issues or problems voiced; no issues/events overnight or earlier this AM; overall, feeling better in comparison to admission. Exam Narrative: General: WD/WN male in NAD Heart: normal S1 and S2; no rub Lungs: clear to auscultation Abdomen: soft, nontender, nondistended, positive bowel sounds Extremities: no cyanosis or clubbing; trace - 1+ edema Skin: right foot wound VAC in place; bilateral lower extremity venous stasis dermatitis changes Objective Data Vital Signs Vital Signs: Vital Signs Temp Pulse Resp BP Pulse Ox 11/20/20 11:15 58 L 175/96 H 11/20/20 10:30 62 170/80 H 11/20/20 10:15 66 170/86 H 11/20/20 09:45 63 157/85 H 11/20/20 09:40 36.7 C 63 18 157/85 H 11/20/20 07:01 60 14 140/63 95 11/20/20 06:00 36.1 C L 58 L 20 90/47 L 98 11/19/20 22:00 36.5 C 62 20 131/48 L 97 11/19/20 21:05 62 11/19/20 16:23 36.7 C 55 L 12 119/63 96 Intake/Output Intake/Output: Intake & Output 11/17/20 11/18/20 11/19/20 11/20/20 23:59 23:59 23:59 23:59 Intake Total 595 180 9131 740 Output Total 3000 1000 Balance -2040 -330 1240 740 Meds/Results Medications: Active Medications Generic Name Dose Route Start Last Admin Trade Name Jitendra PRN Reason Stop Dose Admin Acetaminophen 650 mg 11/19/20 11:21 11/19/20 11:34 Acetaminophen 325 Mg Tablet PO 650 mg Q6H PRN Administration Mild Pain (1-3) or Fever
--- NOTE | 2020-11-20 11:37 | PM.PNNEP ---
Progress Note: A&P Assessment and Plan (1) End stage renal disease: Code(s): N18.6 - End stage renal disease Status: Chronic Assessment and Plan: HD today and continue T/T/S schedule continue efforts to optimize electrolytes, volume status, and clearance (2) Altered mental status: Code(s): R41.82 - Altered mental status, unspecified Status: Acute Assessment and Plan: improving if not resolved due to missed dialysis versus hypoxia or combination of both? follow mentation (3) Acute respiratory failure with hypoxia: Code(s): J96.01 - Acute respiratory failure with hypoxia Status: Acute Assessment and Plan: due to fluid overload and missed dialysis push fluid removal as tolerated with HD treatments wean oxygen as tolerated (4) Osteomyelitis of foot, right, acute: Code(s): M86.171 - Other acute osteomyelitis, right ankle and foot Status: Acute Assessment and Plan: wound vac in place local wound care Orthopedics following as well (5) Contusion of knee, left: Qualifiers: Encounter type: initial encounter Qualified Code(s): S80.02XA - Contusion of left knee, initial encounter Code(s): S80.02XA - Contusion of left knee, initial encounter Status: Acute Assessment and Plan: due to recent fall local care x-rays consistent with DJD/osteoarthritis pain control (6) Diabetes: Code(s): E11.9 - Type 2 diabetes mellitus without complications Status: Acute Assessment and Plan: follow accuchecks glycemic control Will continue to follow. Subjective Date/time seen: 11/20/20 11:37 Tolerating dialysis at the time of my visit (seen on HD at 11:30am); no apparent issues or problems voiced; no issues/events overnight or earlier this AM; overall, feeling better in comparison to admission. Exam Narrative: General: WD/WN male in NAD Heart: normal S1 and S2; no rub Lungs: clear to auscultation Abdomen: soft, nontender, nondistended, positive bowel sounds Extremities: no cyanosis or clubbing; trace - 1+ edema Skin: right foot wound VAC in place; bilateral lower extremity venous stasis dermatitis changes Objective Data Vital Signs Vital Signs: Vital Signs Temp Pulse Resp BP Pulse Ox 11/20/20 11:15 58 L 175/96 H 11/20/20 10:30 62 170/80 H 11/20/20 10:15 66 170/86 H 11/20/20 09:45 63 157/85 H 11/20/20 09:40 36.7 C 63 18 157/85 H 11/20/20 07:01 60 14 140/63 95 11/20/20 06:00 36.1 C L 58 L 20 90/47 L 98 11/19/20 22:00 36.5 C 62 20 131/48 L 97 11/19/20 21:05 62 11/19/20 16:23 36.7 C 55 L 12 119/63 96 Intake/Output Intake/Output: Intake & Output 11/17/20 11/18/20 11/19/20 11/20/20 23:59 23:59 23:59 23:59 Intake Total 197 225 9006 740 Output Total 3000 1000 Balance -2040 -330 1240 740 Meds/Results Medications: Active Medications Generic Name Dose Route Start Last Admin Trade Name Freq PRN Reason Stop Dose Admin Acetaminophen 650 mg 11/19/20 11:21 11/19/20 11:34 Acetaminophen 325 Mg Tablet PO 650 mg Q6H PRN Administration Mild Pain (1-3) or Fever Allopurinol 100 mg 11/17/20 08:00 11/20/20 08:52 Allopurinol 100 Mg Tablet PO 100 mg DAILY@0800 MICHELL Administration Amlodipine Besylate 10 mg 11/17/20 09:00 11/19/20 09:47 Amlodipine Besylate 5 Mg Tablet PO 10 mg DAILY MICHELL Administration Apixaban 2.5 mg 11/17/20 09:00 11/20/20 08:53 Apixaban 2.5 Mg Tablet PO 2.5 mg BID MICHELL Administration Atorvastatin Calcium 20 mg 11/17/20 09:00 11/20/20 08:52 Atorvastatin 20 Mg Tablet PO 20 mg DAILY MICHELL Administration Bupropion HCl 150 mg 11/17/20 09:00 11/20/20 08:52 Bupropion Hcl Sr (12 Hr) 150 Mg Tab PO 150 mg DAILY MICHELL Administration Carvedilol 25 mg 11/17/20 09:00 11/19/20 21:05 Carvedilol 25 Mg Tablet PO 25 mg Q12HR MICHELL Administrat
[2020-11-20 11:55] LABS: Glucose Point of Care 117 mg/dl (65-105)
[2020-11-20 12:22] LABS: EDCOVIDSCREEN Negative (Negative)
--- NOTE | 2020-11-20 14:20 | PCPTNOTE ---
Attempted to see patient for PT at this time, however patient refused. Patient reported she just got back from dialysis and has to eat lunch.
[2020-11-20] MEDS: amLODIPine BESYLATE 5 MG TABLET 10 MG PO (14:32)
[2020-11-20] MEDS: carvediloL 25 MG TABLET PO (14:33)
[2020-11-20 16:52] LABS: Glucose Point of Care 162 mg/dl (65-105)
[2020-11-20 18:48] LABS: Hepatitis Be Antibody Nonreactive; Hepatitis Be Antigen Nonreactive
== END 2020-11-20 18:30 | DRG 682 ==
LOC: ANHED 19:37 → ANH3MEDSUR 23:27
PROVIDERS: Emergency Medicine; Internal Medicine Nephrology; Physician Assistant; Admitting Provider Internal Medicine; Emergency Provider Emergency Medicine; PCP Internal Medicine; Visit Provider Internal Medicine
DX: I13.11 Hypertensive heart and chronic kidney disease without heart failure, with stage 5 chronic kidney disease, or end stage renal disease (principal); N18.6 End stage renal disease; J96.01 Acute respiratory failure with hypoxia; M86.171 Other acute osteomyelitis, right ankle and foot; Z68.42 Body mass index [BMI] 45.0-49.9, adult; E66.01 Morbid (severe) obesity due to excess calories; I27.20 Pulmonary hypertension, unspecified; Z20.822 Contact with and (suspected) exposure to COVID-19; E11.40 Type 2 diabetes mellitus with diabetic neuropathy, unspecified; S80.02XA Contusion of left knee, initial encounter; W19.XXXA Unspecified fall, initial encounter; R41.82 Altered mental status, unspecified; E11.22 Type 2 diabetes mellitus with diabetic chronic kidney disease; Z99.2 Dependence on renal dialysis; E11.43 Type 2 diabetes mellitus with diabetic autonomic (poly)neuropathy; E11.319 Type 2 diabetes mellitus with unspecified diabetic retinopathy without macular edema; E11.69 Type 2 diabetes mellitus with other specified complication; K31.84 Gastroparesis; I87.2 Venous insufficiency (chronic) (peripheral); M10.9 Gout, unspecified; K21.9 Gastro-esophageal reflux disease without esophagitis; M81.0 Age-related osteoporosis without current pathological fracture; E78.5 Hyperlipidemia, unspecified; D64.9 Anemia, unspecified; Z79.4 Long term (current) use of insulin; Z79.899 Other long term (current) drug therapy; Z98.42 Cataract extraction status, left eye; Z98.41 Cataract extraction status, right eye; Z87.891 Personal history of nicotine dependence; Z86.73 Personal history of transient ischemic attack (TIA), and cerebral infarction without residual deficits
CPT/HCPCS: 36415; 36600; 70450; 71045; 71046; 71250; 73562; 80048; 80069; 82375; 82805; 82948; 83050; 83880; 85014; 85018; 85025; 86706; 86707; 87040; 87340; 87350; 87426; 93005; 93306; 93970; 94762; 96365; 96366; 96367; 96375; 96376; 97161; 97166; 99285; A9270; C9803; G0257; G0378; J1170; J1815; J2543; J3370; J7030; Q5106

== ENCOUNTER 2020-12-03 07:49 | Outpatient (RCR) | payer OTHER, MEDICARE, MEDICAID, SELFPAY ==
--- NOTE | 2020-10-01 15:06 | WPDWOUNDNOTE ---
Wound Care Note Date/Time: 09/30/20 12:06 History: This patient is a 70-year-old diabetic white female who has an infected right diabetic foot ulcer that is status post bedside debridement on 09/09/20(by Dr. Salcido) and surgical debridement with versajet use in the OR on 09/10/20(also by ). During that surgery vancomycin antibiotic beads were placed in the wound. Wound culture from surgery showed growth of proteus mirabilis. ID consulted and switched her to oral levofloxacin. Continue oral abx per ID/ [facility] MD. She was taken back to the OR by Dr. Nunez on 09/16/20 after consultation requested by Dr. Mara Greenfield when the infection seemed to spread toward her ankle on the bottom of her foot for excisional debridement and Pulsavac irrigation. she stated hospital on IV antibiotics through the date of her discharge along with oral Levaquin. She also had use of a irrigating wound VAC for approximately 5 days postop. Then prior to discharge to the F on the date of her discharge we removed the irrigating wound VAC and applied wet to dry dressing for potential discharge. Case management later helped her get placed at [facility] stated that they had wound care available along with the capability of a standard wound VAC to the wound. We would like a wound VAC to then be applied at the SNF and continued until followed up in the wound clinic. patient is brought to the wound clinic this date from the [facility] by EMT spirits upon being evaluated in the wound clinic multiple aunts were found on the bed and also within the somewhat disrupted wound VAC dressing on her foot. Patient's son is also reported that a wound VAC apparent was leaking frequently. When we called the nurse for the patient at the [facility] yesterday we were told that it occasionally leaks but they were able to patch it and make a work. Our wound care nurse feels that it most likely has not been working well because it was not well shock suction down when it was presented and removed today in the Wound Care Clinic. (I asked our wound care head nurse to talk to the vocational rehabilitation administrator at this [facility] regarding our concerns regarding the wound VAC and also the infestation of ants on the patient when she was brought to the wound clinic). Wound history: Apparently prior to her recent [place] the patient had long-term issues with some pain in her right foot. She may have had pressure developed there since she has neuropathy and does not have good sensation there. Dr. Terry is told me that he debrided it some in the office and then subsequently at the bedside once he admitted her when he 1st saw her. Prior to seen him she had been seen at different [facility]. Through the time at the hospital the patient required 3 different debridements in order to rid the foot of infection. At no time did we think that she had osteomyelitis that we could tell. She did have an MRI of the foot while hospitalized and this showed no bony involvement. Irrigating wound VAC was used after I did a final debridement in early September. This seemed to clean the wound up nicely. There is more granulation tissue today than there was when I saw after use of the irrigating wound VAC but there is still some loose necrotic material that was able to be debrided today in the wound clinic. I believe this still may go ahead and heal with adequate use of the wound VAC if the seal can be maintained. Wound approximation: No Wound width: 9.5 cm Wound length: 6.0 cm Wound depth: 1.2 cm Drainage: Yellowish white clear drainage. Surrounding tissue appearance: there was little bit of necrotic skin on 1 edge of the wound but otherwise the skin appears pink and healthy surrounding the wound itself. Tunneling: Minor tunneling toward her calcaneus , but note necrotic tissue within the tunnel. Percentage granulation tissue: Perhaps 50%. There is some exposed plantar tendon. Treatment/Procedures: Debrided at bedside with scissors and steri
--- NOTE | 2020-10-13 13:43 | WPDWOUNDNOTE ---
Wound Care Note Date/Time: 10/13/20 13:43 History: This patient is a 70-year-old diabetic white female who has an infected right diabetic foot ulcer that is status post bedside debridement on 09/09/20(by Dr. Salcido) and surgical debridement with versajet use in the OR on 09/10/20(also by ). During that surgery vancomycin antibiotic beads were placed in the wound. Wound culture from surgery showed growth of proteus mirabilis. ID consulted and switched her to oral levofloxacin. Continue oral abx per ID/ ECF MD. She was taken back to the OR by Dr. Nunez on 09/16/20 after consultation requested by Dr. Salcido when the infection seemed to spread toward her ankle on the bottom of her foot for excisional debridement and Pulsavac irrigation. She stayed in the hospital on IV antibiotics through the date of her discharge along with oral Levaquin. She also had use of a irrigating wound VAC for approximately 5 days postop. Then prior to discharge to the ECF on the date of her discharge we removed the irrigating wound VAC and applied wet to dry dressings for potential discharge. Case management later helped her get placed at [facility] in [place], [place] and stated that they had wound care available along with the capability of a standard wound VAC to the wound. She was only there for less than 2 weeks and then moved to outpatient therapy with home health. Last Sunday she was discharged from the [facility] and had wet-to-dry dressings until the wound VAC could be shipped to her house based on her outpatient home health insurance. That did not come till yesterday so the family brought today and we are position it into appropriate place on the right foot wound today in the wound clinic. The patient finished his her Levofloxacin 2 days ago and the wound looks good so we will not renew this for now. Wound history: Wound history: Apparently prior to her recent admission to [facility] the patient had long-term issues with some pain in her right foot. She may have had pressure developed there since she has neuropathy and does not have good sensation there. Dr. Salcido told me that he debrided it some in the office and then subsequently at the bedside once he admitted her when he first saw her. Prior to seen him she had been seen at different [facility] mk 2 advanced operator. Through the time at the hospital the patient required 3 different debridements in order to rid the foot of infection. At no time did we think that she had osteomyelitis that we could tell. She did have an MRI of the foot while hospitalized and this showed no bony involvement. An Irrigating wound VAC was used after I did a final debridement in early September. This seemed to clean the wound up nicely. There is more granulation tissue and the wound is contrating down nicely today. . I believe this still may go ahead and heal with adequate use of the wound VAC if the seal can be maintained. Because of the edema with that we were noted in both lower extremities today which is worse than when we last saw her in a boot like wraps will be applied to bilateral lower extremities today. Encouraged her to check with her primary about a short course of Lasix or she can consider more frequent dialysis with her head packager if that is more appropriate. Wound width: 10 cm Wound length: 13 cm Wound depth: 2 cm Drainage: serous Surrounding tissue appearance: pink and healthy. Tunneling: none Percentage granulation tissue: 100 % Treatment/Procedures: The standard wound vac will be resumed the the diabetic foot wound today. Also in view or her edema of both lower ext below the knees we will apply Co-ap wraps. This hopwfully will decrease her significnat peripheral edema. Dressings: as above. Assessment and Plan Assessment and plan (1) Diabetic foot ulcer: Onset Date: ~08/2020 Code(s): E11.621 - Type 2 diabetes mellitus with foot ulcer; L97.509 - Non-pressure chronic ulcer of other part of unspecifi
--- NOTE | 2020-11-30 08:59 | PCWOUND ---
Addendum entered by Ronnie Orta RN 11/30/20 10:37: Placed call to [facility] to verify what was going on with patient showing up today. long-term nurse reported that she told the patient that she did not have an appointment today at the wound center and that [facility] not [facility] available today either. She said the patient left any way with her personal critical care nurse and rode the public transit bus to the hospital. I verified the patient does have an appointment for Sunday at 8:30, Nurse verified they have that scheduled for patient. Original Note: WOCN NOTE Patient had cancelled appointment for today due to dialysis. patient cancelled last week for today. patient then showed up for appointment today and then did not want to wait to be worked into the schedule. patient has an appointment for Sunday at 8:30.
--- NOTE | 2020-12-03 14:01 | PM.PNORT ---
Progress Note: A&P Assessment and Plan (1) Osteomyelitis of foot, right, acute: Code(s): M86.171 - Other acute osteomyelitis, right ankle and foot Status: Acute Assessment and Plan: 4 weeks, 5 days status post excision of right foot osteomyelitis, excisional debridement of right diabetic foot ulcer. Patient has been undergoing wound VAC dressing changes both at her facility and while admitted inpatient for missed dialysis. She presents today from her assisted facility to the [facility] for re-evaluation. Wound bed with 100% red/pink tissue. No purulence, no malodor. Wound bed with marked improvement in dimensions in appearance overall. She does have a new onset pressure ulcer on the heel which has a necrotic cap covering it. That wound measures 4.5 x 6.0 cm. No depth. No ability to probe to bone. Recommended a wound VAC holiday at this point. We will transition to silver rope to wound bed and to tunneled area. Patient to then wrapped with ABD and gauze roll. Mepilex border to the heel. Patient to continue dressing changes daily at her assisted facility. They do have a wound care provider at the nursing facility who was assisting with dressing changes. Patient will follow-up in 2 weeks for re-evaluation. At which point we may transition to every 3 weeks evaluations. Elevate right lower extremity on pillows while in bed. Reiterated this with her friend at the bedside today. Reviewed signs and symptoms of infection to report to the emergency room immediately. Patient verbalized understanding agrees with plan of care. Will re-evaluate need for wound VAC at next appointment. Subjective Subjective Date/Time Seen: 12/03/20 14:01 Interval history: Patient is 4 weeks, 5 days status post excision of right foot osteomyelitis and debridement of diabetic foot ulcer. She was evaluated most recently in the hospital after admission following a missed dialysis appointment. She has been discharged to her assisted facility and has been undergoing wound VAC dressing changes. No new concerns regarding plantar foot wound the patient does have a pressure ulcer noted on the heel with a necrotic cap covering. Patient denies fever, chills, night sweats, nausea, vomiting or diarrhea. No new concerns today. Review of Systems Review of Systems: All systems reviewed & are unremarkable except as noted in HPI and below Exam Const: General: cooperative, comfortable, no acute distress and alert Orientation/consciousness: patient oriented x3 HENMT: Head: normal to inspection Eyes: General: appearance normal, both eyes and all related structures Conjunctivae: conjunctivae normal Neck: Neck: normal visual inspection Chest: Chest palpation & inspection: normal inspection of the chest Resp: Effort & Inspection: normal respiratory effort and able to speak in complete sentences Cardio: Jugular venous distension: no JVD Rate: regular rate and bradycardic Rhythm: regular rhythm Skin: Lesions: lesion noted (Right plantar foot ) Other: Wound VAC dressing removed. Wound on the plantar aspect of the right midfoot measures 5 x 9.5 x 1 with a 2.2 cm tunnel from the 4 to 6 o'clock position. She does have a large necrotic cap pressure ulcer he is on her heel measuring 4.5 x 6.0 cm. No evidence of redness, warmth or swelling. Patient has bilateral lower extremity edema consistent with lymphedema. Neuro: General: moves all extremities and no focal motor deficits Extrem: Right lower extremity: lower leg ( Lymphedema and venous stasis changes, crusted areas, no open weeping) Details: non-pitting edema and abrasion ( Anterior leg just below the knee); no crepitus, ankle ( Positive ankle dorsiflexion/ plantar flexion) Details: swelling and foot ( palpable pedal pulse) Details: edema, motor-sensory exam Details: light-touch abnormal Location: in all toes and other ( wound, see below); no tenderness, no unusual warmth
== END 2020-12-29 23:59 | disposition home or self-care (01) ==
LOC: ANHWOC 07:49
PROVIDERS: PCP Internal Medicine; Referring Provider Surgery; Visit Provider Orthopaedic Surgery
DX: E11.621 Type 2 diabetes mellitus with foot ulcer (principal); L97.419 Non-pressure chronic ulcer of right heel and midfoot with unspecified severity
CPT/HCPCS: 29581; 99213; G0463

== ENCOUNTER 2020-12-21 16:35 | Inpatient (IN) | payer MEDICARE, MEDICAID, SELFPAY ==
[2020-12-21] VITALS (7 sets, daily range): BP systolic 123–135; BP diastolic 53–80; PULSE 72–78; RESP 18–20; TEMP 36.3–37.4; O2SAT 95–96; BMI 38.0
--- NOTE | ~2020-12-21 | XR_ITS ---
EXAMINATION: XR foot RT min 3V EXAM DATE: 12/21/2020 18:18 INDICATION: Infection, Wounds To Calcaneus And Plantar Surface. TECHNIQUE: Right foot dorsoplantar, lateral and oblique projections obtained and reviewed. Compariso n is made to prior examination from 10/25/2020. FINDINGS: Interval progression in the right 5th metatarsal base osteomyelitis, now also involving the Lisfranc joint, evidence of erosions of the 2nd through 4th metatarsal bases as well, the cuboid and lateral cuneiform. There are some other scattered foci of gas identified along the foot medially, pr obably introduced by the large wound identified although fasciitis not radiographically excludable. S mall calcaneal spur. Vascular calcifications. Severe soft tissue swelling. IMPRESSION: 1. Osteomyelitis involving right 2nd through 5th metatarsal bases, cuboid and lateral cuneiform bone s at the Lisfranc joint. 2. Deep plantar wound with some medial foci of gas probably introduced from the wound, although fasc iitis not excludable. Reviewed, dictated and finalized at location A. IMPRESSION: 1. Osteomyelitis involving right 2nd through 5th metatarsal bases, cuboid and lateral cuneiform bones at the Lisfranc joint. 2. Deep plantar wound with some medial foci of gas probably introduced from th e wound, although fasciitis not excludable.
--- NOTE | 2020-12-21 20:00 | PM.IMHP ---
H&P: HPI History of Present Illness Date/Time: 12/21/20 20:00 Chief Complaint: Right foot wound. Narrative: This is a 70-year-old female with end stage renal disease on hemodialysis, insulin dependent diabetes, hypertension, chronic anemia, osteomyelitis, and several other comorbidities who presented to the emergency department earlier today via EMS from [facility] for evaluation of a right foot wound. She is well-known to the hospitalist service with several recent admissions including an admission at the beginning of October 2020 with osteomyelitis of the right foot. At that time she was seen by Dr. Varma and had excisional debridement of a foot ulcer as well as excision of right foot osteomyelitis measuring 13 x 3.5 cm. She has been followed by the wound clinic and she initially had a wound VAC in place which was removed approximately 3 weeks ago. Since that time she has had daily dressings per the wound nurse at her rehab facility and up until 2 days ago her wound was reportedly looking good. Yesterday there was some concern that she was having drainage at the site and today her right heel wound was malodorous with surrounding redness and warmth and that she was brought in for evaluation. Patient tells me that she has been strictly nonweightbearing on that foot and reports that it is elevated as much as possible. She has not bumped the heel to her knowledge. She denies fever, chills, and sweats. No nausea or vomiting. Leaves her glucose has been well controlled. Review of Systems Review of Systems: 12 symptoms were reviewed with pertinent positives and negatives as per HPI. Except as documented, all other systems were reviewed and are negative. [facility] Past Medical History Medical History (Updated 12/21/20 @ 20:27 by Alma Quinn PA-C) Anxiety and depression Arthritis Benign thyroid cyst Evaluated by ultrasound a couple of years ago per patient report. Cerebrovascular accident Due to embolic event following a shoulder fracture 2016 with chronic mild left-sided weakness. Chronic anemia Chronic venous stasis dermatitis of both lower extremities Diabetic gastroparesis Diabetic neuropathy Diabetic retinopathy of both eyes End-stage renal disease on hemodialysis Previously on peritoneal dialysis. Gastroesophageal reflux disease Gout Grade II diastolic dysfunction Noted on echo on 07/04/2019. EF 55-60%. Hyperkalemia Hyperlipidemia Hypertension (Unknown) Infarction of liver (07/07/19) Insulin dependent type 2 diabetes mellitus A1c was 8.9% on 09/08/2020. Moderate pulmonary hypertension Noted on echo on 07/04/2019 with estimated pulmonary arterial systolic pressure on 53 mmHg. Morbid obesity Osteomyelitis of right foot Osteoporosis Retinal detachment Right knee pain Shingles Splenic infarct (07/07/19) Surgical History Surgical History (Updated 12/21/20 @ 20:27 by Alma Quinn PA-C) History of bilateral cataract extraction (2009) History of total hysterectomy with bilateral salpingo-oophorectomy (BSO) For benign ovarian mass. Proliferative diabetic retinopathy with history of surgery Status post excisional debridement (~10/2020) Debridement of diabetic foot ulcer and osteomyelitis of right foot. Status post glaucoma surgery Surgically constructed arteriovenous fistula (2015) Family History Family History Sibling Family history of alcoholism Mother Metastatic colon cancer in female Father Cancer Of the neck due to chemical exposure Son Heroin overdose Her youngest son Motor vehicle collision Her 2nd youngest son Other Hypertension Social History Social History Social History: Surrogate decision maker: Satya Rodriguez, son. Code status: Full code. Smoking status: Former smoker Tobacco type: cigarettes Second hand tobacco smoke
[2020-12-21 20:15] LABS: Hematocrit 31.5 % (37.0-47.0); Mean Corpuscular HGB Conc 31.7 g/dl (32-36); Mean Corpuscular Hemoglobin 32.3 pg (26-34); Mean Corpuscular Volume 101.6 fl (80-100); Mean Platelet Volume 10.8 fl (7.4-10.4); Platelet Count Result 298 k/mm3 (150-375); Red Cell Distribution Width 14.4 % (11.5-14.5); White Blood Count 14.8 K/mm3 (4.5-10.0)
--- NOTE | 2020-12-21 20:40 | ED.GENADULT ---
HPI - General Adult General Chief complaint: Wound/Laceration Stated complaint: WOUND R FOOT Time Seen by Provider: 12/21/20 17:54 Source: patient Mode of arrival: EMS Limitations: no limitations History of Present Illness HPI narrative: Patient with history of diabetes, end-stage renal disease with dialysis, lymphedema and chronic wound presented with chief complaint of worsening presentation of wounds in her right heel. Patient states that she has been seeing wound care but over the past day they have noticed increased swelling and redness to the area. Patient states that she had surgery performed by Dr. Varma and she had a wound VAC placed but they removed the approximately 2 weeks ago to see how the wound will perform. Patient states that she receives vancomycin Tuesdays, and Saturdays while receiving her dialysis. She states that she did not receive her vancomycin 1 today. Patient denies fever, chills, nausea, vomiting. Related Data Home Medications Medication Instructions Recorded Confirmed bupropion HCl [Wellbutrin SR] 150 mg PO DAILY 05/30/19 11/17/20 amlodipine 10 mg PO DAILY 09/07/20 11/17/20 atorvastatin 20 mg PO DAILY 09/07/20 11/17/20 allopurinol 100 mg PO DAILY 10/21/20 11/17/20 carvedilol 25 mg PO BID 10/21/20 11/17/20 Allergies Allergy/AdvReac Type Severity Reaction Status Date / Time No Known Allergies Allergy Mild Verified 10/21/20 10:21 Review of Systems Review of Systems: CONSTITUTIONAL: Denies fever, chills, or sweats. EYES: Denies visual changes, redness, or discharge. ENT: Denies rhinorrhea, congestion, sore throat, or otalgia. CARDIOVASCULAR: Denies chest pain, palpitations, or edema. RESPIRATORY: Denies cough or dyspnea. GASTROINTESTINAL: Denies abdominal pain, nausea, vomiting, or diarrhea. GENITOURINARY: Denies dysuria or hematuria. SKIN: Denies rash or itching. MUSCULOSKELETAL: Reports right foot pain denies back pain, joint pain, or myalgia. NEUROLOGIC: Denies headache, numbness, dizziness, or weakness. PSYCHIATRIC: Denies anxiety or depression. [facility] Past Medical History Medical History (Updated 12/21/20 @ 20:48 by Flavio Gramajo PA-C) Anxiety and depression Arthritis Benign thyroid cyst Evaluated by ultrasound a couple of years ago per patient report. Cerebrovascular accident Due to embolic event following a shoulder fracture 2016 with chronic mild left-sided weakness. Chronic anemia Chronic venous stasis dermatitis of both lower extremities Diabetic gastroparesis Diabetic neuropathy Diabetic retinopathy of both eyes End-stage renal disease on hemodialysis Previously on peritoneal dialysis. Gastroesophageal reflux disease Gout Grade II diastolic dysfunction Noted on echo on 07/04/2019. EF 55-60%. Hyperkalemia Hyperlipidemia Hypertension (Unknown) Infarction of liver (07/07/19) Insulin dependent type 2 diabetes mellitus A1c was 8.9% on 09/08/2020. Moderate pulmonary hypertension Noted on echo on 07/04/2019 with estimated pulmonary arterial systolic pressure on 53 mmHg. Morbid obesity Osteomyelitis of right foot Osteoporosis Retinal detachment Right knee pain Shingles Splenic infarct (07/07/19) Surgical History Surgical History (Updated 12/21/20 @ 20:27 by Alma Quinn PA-C) History of bilateral cataract extraction (2009) History of total hysterectomy with bilateral salpingo-oophorectomy (BSO) For benign ovarian mass. Proliferative diabetic retinopathy with history of surgery Status post excisional debridement (~10/2020) Debridement of diabetic foot ulcer and osteomyelitis of right foot. Status post glaucoma surgery Surgically constructed arteriovenous fistula (2015) Family History Family History Sibling Family history of alcoholism Mother Metastatic colon cancer in female Father Cancer Of the neck due to chemical exposure Son Heroin overdose Her youngest son M
--- NOTE | 2020-12-21 20:43 | PC.NURSE ---
Called lab at 2043 talked to Lorrie, agreed to add HGB A1C to current blood
[2020-12-21 20:45] LABS: Band Neutrophils Percent 1 % (0-6); Lymphocytes Absolute Manual 0.59 K/mm3 (1.1-4.5); Metamyelocytes Percent 1 %; Monocytes Absolute Manual 0.44 K/mm3 (0.1-0.90); Monocytes Percent Manual 3 % (3-9); Neutrophils Absolute Manual 13.61 K/mm3 (1.7-7.2); Neutrophils Percent Manual 91 % (46-73); Platelet Estimate Adequate (Adequate); Total Cells Counted 100
[2020-12-21 20:58] LABS: Lactic Acid Reflex 1.8 mmol/L (0.7-2.1)
--- NOTE | 2020-12-21 22:40 | ADMGEN ---
This patient, Kelley Rodriguez, was admitted to Medical Room 344-01. Patient/family oriented to hospital policies and general routines including ID bracelet, bed and alarms, visiting hours, pain management, procedures, bathroom and other care routines, personal items, smoking policy, room service/diet, and visiting hours. Information on how to activate the Rapid Response Team has been discussed. Patient/Family are encouraged to report perceived risks to care and to ask questions if they do not understand what they are told or what they should do.
[2020-12-21 23:02] LABS: Glucose Point of Care 281 mg/dl (65-105)
[2020-12-21 23:15] LABS: Hemoglobin A1C 6.1 % (<5.7)
[2020-12-22 00:40] LABS: Alanine Aminotransferase 18 U/L (4-35); Albumin Level 3.2 g/dL (3.5-5.1); Alkaline Phosphatase 260 U/L (38-126); Anion Gap 8 mmol/L (8-16); Aspartate Amino Transferase 24 U/L (14-36); Blood Urea Nitrogen 36 mg/dL (7-17); Calcium 8.5 mg/dL (8.4-10.2); Carbon Dioxide 33 mmol/L (22-30); Chloride 92 mmol/L (98-107); Estimated CRCL calculation 14 ml/min; Estimated Glomerular Filt Rate 11; Glucose 261 mg/dL (65-110); Potassium 3.1 mmol/L (3.4-5.0); Sodium 133 mmol/L (137-145)
[2020-12-22 04:35] VITALS: BP 139/54; PULSE 70; RESP 19; TEMP 36.8; O2SAT 95
[2020-12-22 06:07] LABS: Anion Gap 8 mmol/L (8-16); Blood Urea Nitrogen 36 mg/dL (7-17); Calcium 8.6 mg/dL (8.4-10.2); Carbon Dioxide 32 mmol/L (22-30); Chloride 91 mmol/L (98-107); Estimated CRCL calculation 13 ml/min; Estimated Glomerular Filt Rate 10; Glucose 199 mg/dL (65-110); Magnesium 2.1 mg/dL (1.6-2.3); Potassium 2.9 mmol/L (3.4-5.0); Sodium 131 mmol/L (137-145)
[2020-12-22 07:56] LABS: Glucose Point of Care 163 mg/dl (65-105)
[2020-12-22] MEDS: amLODIPine BESYLATE 5 MG TABLET 10 MG PO (08:00)
[2020-12-22] MEDS: allopurinoL 100 MG TABLET PO (08:00)
[2020-12-22] MEDS: SACCHAROMYCES BOULARDII 250 MG CAPSULE PO ×2 (08:00→18:12)
[2020-12-22] MEDS: FAMOTIDINE 20 MG TABLET PO (08:00)
[2020-12-22] MEDS: ATORVASTATIN 20 MG TABLET PO (08:00)
[2020-12-22] MEDS: APIXABAN 2.5 MG TABLET PO ×2 (08:00→20:33)
[2020-12-22 08:01] VITALS: PULSE 70
[2020-12-22] MEDS: LIDOCAINE 5% PATCH 1 PATCH TOPICAL (08:01)
[2020-12-22] MEDS: carvediloL 25 MG TABLET PO ×2 (08:01→18:12)
[2020-12-22] MEDS: buPROPion HCL SR (12 HR) 150 MG TAB PO (08:01)
--- NOTE | 2020-12-22 08:29 | PM.CNOR ---
Assessment and Plan Assessment and plan (1) Osteomyelitis of foot, right, acute: Code(s): M86.171 - Other acute osteomyelitis, right ankle and foot Status: Acute Assessment and Plan: Readmit for infected right diabetic foot ulcer. Most likely has element of osteomyelitis given the chronicity of the wounds and the radiographic appearance. Picture complicated by diabetes, peripheral neuropathy, peripheral vascular disease and end-stage renal disease with dialysis. [place] for salvage of the foot is grim at this time. Restart IV antibiotics. Wound care team consult for recommendations for dressing changes and and somatic debridement. Consider surgical debridement. Patient currently eating breakfast. Discussed real chance for amputation to effect healing. (2) Neuropathy due to type 2 diabetes mellitus: Code(s): E11.40 - Type 2 diabetes mellitus with diabetic neuropathy, unspecified Status: Acute (3) Venous stasis dermatitis of both lower extremities: Code(s): I87.2 - Venous insufficiency (chronic) (peripheral) Status: Acute (4) Diabetic ulcer of right foot: Qualifiers: Diabetic foot ulcer location: midfoot Diabetes mellitus type: type 2 Non-pressure ulcer stage: with necrosis of bone Qualified Code(s): E11.621 - Type 2 diabetes mellitus with foot ulcer; L97.414 - Non-pressure chronic ulcer of right heel and midfoot with necrosis of bone Code(s): E11.621 - Type 2 diabetes mellitus with foot ulcer; L97.519 - Non-pressure chronic ulcer of other part of right foot with unspecified severity Status: Acute (5) End-stage renal disease needing dialysis: Code(s): N18.6 - End stage renal disease; Z99.2 - Dependence on renal dialysis Status: Acute History of Present Illness HPI Consult date: 12/22/20 Requesting physician: Flavio Gramajo PA-C Consult reason: other (RT DFU) Chief complaint: Osteomyelitis Narrative: 70-year-old woman known to the Orthopedic service for right diabetic foot ulcer and infection. Previous debridement of the plantar midfoot 2 months ago. Her last orthopedic evaluation was December 03 in the outpatient wound clinic. At that time she had a healthy-appearing plantar midfoot ulcer with 100% granulation tissue and a new onset pressure ulcer plantar heel. Wound care with daily dressing changes was initiated for the heel ulcer. In the interim she has since stopped the wound VAC dressing on the plantar aspect of the foot. She presented to the emergency room yesterday with worsening appearance of the midfoot and the heel ulcer. She has minimal pain secondary to neuropathy. Review of Systems Constitutional: Constitutional: Reports no additional constitutional complaints, Denies chills, Denies fatigue, Denies fever(s), Denies headache(s) and Denies weakness Eyes: Eyes: Denies change in vision ENT: Reports Normal hearing present and Denies headache(s) Cardiovascular: Cardiovascular: Denies chest pain, Reports pedal edema and Reports edema Respiratory: Respiratory: Denies cough, Denies dyspnea and Denies wheezing Gastrointestinal: Gastrointestinal: Denies constipation, Denies diarrhea, Denies nausea and Denies vomiting Genitourinary: Genitourinary: Reports no additional female genitourinary complaints Musculoskeletal: Musculoskeletal: Reports as per HPI, Reports numbness, Reports tingling and Reports other (decreased sensation b/l LE ) Integumentary/Breasts: Skin/Breast: Reports as per HPI Neurologic: Reports as per HPI, Reports Normal hearing present and Denies headache(s) Psychiatric: Psychiatric: Reports no additional psychiatric complaints Endocrine: Endocrine: Reports no additional endocrine complaints and Denies fatigue Hematologic/Lymphatic: Hematologic/Lymphatic: Reports no additional hematologic/lymphatic complaints Allergic/Immunologic: Allergic/Immunologic: Reports no additional allergic/immunologic complaints and Denies wh
[2020-12-22 09:42] LABS: Hematocrit 30.2 % (37.0-47.0); Hemoglobin 9.5 g/dL (12.0-15.0); Mean Corpuscular HGB Conc 31.5 g/dl (32-36); Mean Corpuscular Hemoglobin 32.3 pg (26-34); Mean Corpuscular Volume 102.7 fl (80-100); Mean Platelet Volume 10.9 fl (7.4-10.4); Platelet Count Result 285 k/mm3 (150-375); Red Blood Count 2.94 M/mm3 (4.2-5.4); Red Cell Distribution Width 14.6 % (11.5-14.5); White Blood Count 15.2 K/mm3 (4.5-10.0)
[2020-12-22] MEDS: COLLAGENASE OINT 30 GM TUBE 1 APPLIC TOPICAL (11:13)
[2020-12-22 11:57] LABS: Glucose Point of Care 170 mg/dl (65-105)
--- NOTE | 2020-12-22 13:32 | P.PNIM_ITS ---
Progress Note: A&P Assessment and Plan (1) Diabetic ulcer of right foot: Qualifiers: Diabetic foot ulcer location: midfoot Diabetes mellitus type: type 2 Non-pressure ulcer stage: with necrosis of bone Qualified Code(s): E11.621 - Type 2 diabetes mellitus with foot ulcer; L97.414 - Non-pressure chronic ulcer of right heel and midfoot with necrosis of bone Code(s): E11.621 - Type 2 diabetes mellitus with foot ulcer; L97.519 - Non-pressure chronic ulcer of other part of right foot with unspecified severity Status: Acute Assessment and Plan: She is status post excisional debridement performed on 10/28/[address] Varma. Presented with worsening over the past 2 days. * Foot x-ray performed on 12/21 again showed osteomyelitis involving right 2nd through 5th metatarsal bases, cuboid and lateral cuneiform bones as well as deep plantar wound * Appreciate orthopedic surgery consultation * Amputation has been discussed. She has refused this in the past. * Continue IV Primaxin and vancomycin * Appreciate wound care consultation and recommendations * Supportive care. Analgesics available as needed. Elevate the foot. * Wound cultures and blood cultures are pending. (2) Osteomyelitis of foot, right, acute: Code(s): M86.171 - Other acute osteomyelitis, right ankle and foot Status: Acute Assessment and Plan: Plan as above (3) End-stage renal disease on hemodialysis: Code(s): N18.6 - End stage renal disease; Z99.2 - Dependence on renal dialysis Status: Chronic Assessment and Plan: Her bulldozer mechanic is Dr. Rodríguez at [facility]. Maintained on hemodialysis Sunday//Sunday * Nephrology has been consulted for management of dialysis. Recommendations are appreciated (4) Hypokalemia: Code(s): E87.6 - Hypokalemia Status: Acute Assessment and Plan: Potassium low at 2.9 today * Administer 40 mg p.o. KCl * Cautious potassium supplementation given ESRD * Monitor BMP and will check magnesium (5) Insulin dependent type 2 diabetes mellitus: Code(s): E11.9 - Type 2 diabetes mellitus without complications; Z79.4 - detention (current) use of insulin Status: Chronic Assessment and Plan: A1c is 6.1 * Continue Accu-Cheks, sliding scale insulin, hypoglycemic protocol * On Lantus 80 units q.h.s. * Monitor blood sugar trends and adjust as needed (6) Hypertension: Onset Date: Unknown Qualifiers: Hypertension type: essential hypertension Qualified Code(s): I10 - Essential (primary) hypertension Code(s): I10 - Essential (primary) hypertension Status: Chronic Assessment and Plan: Blood pressure reviewed and has been stable. Last BP 139/54 * Continue carvedilol and amlodipine * Monitor blood pressure trends (7) Chronic anemia: Code(s): D64.9 - Anemia, unspecified Status: Acute Assessment and Plan: Hemoglobin hematocrit consistent with baseline * Continue Retacrit * Monitor H&H closely Subjective Date/time seen: 12/22/20 13:32 Interval history: Date of service: 12/22/2020 Kelley segura is a 70-year-old female with a history of end-stage renal disease on hemodialysis, type 2 diabetes, cleared by neuropathy, osteomyelitis of the right foot with several recent hospital admissions related to this, hypertension, hyperlipidemia, anemia chronic disease, and several other comorbidities who is seen in follow-up for osteomyelitis of the right foot
--- NOTE | 2020-12-22 13:32 | PM.IMPN ---
Progress Note: A&P Assessment and Plan (1) Diabetic ulcer of right foot: Qualifiers: Diabetic foot ulcer location: midfoot Diabetes mellitus type: type 2 Non-pressure ulcer stage: with necrosis of bone Qualified Code(s): E11.621 - Type 2 diabetes mellitus with foot ulcer; L97.414 - Non-pressure chronic ulcer of right heel and midfoot with necrosis of bone Code(s): E11.621 - Type 2 diabetes mellitus with foot ulcer; L97.519 - Non-pressure chronic ulcer of other part of right foot with unspecified severity Status: Acute Assessment and Plan: She is status post excisional debridement performed on 10/28/[address] Varma. Presented with worsening over the past 2 days. Foot x-ray performed on 12/21 again showed osteomyelitis involving right 2nd through 5th metatarsal bases, cuboid and lateral cuneiform bones as well as deep plantar wound Appreciate orthopedic surgery consultation Amputation has been discussed. She has refused this in the past. Continue IV Primaxin and vancomycin Appreciate wound care consultation and recommendations Supportive care. Analgesics available as needed. Elevate the foot. Wound cultures and blood cultures are pending. (2) Osteomyelitis of foot, right, acute: Code(s): M86.171 - Other acute osteomyelitis, right ankle and foot Status: Acute Assessment and Plan: Plan as above (3) End-stage renal disease on hemodialysis: Code(s): N18.6 - End stage renal disease; Z99.2 - Dependence on renal dialysis Status: Chronic Assessment and Plan: Her audio visual design engineer is Dr. Rodríguez at [facility]. Maintained on hemodialysis Sunday//Sunday Nephrology has been consulted for management of dialysis. Recommendations are appreciated (4) Hypokalemia: Code(s): E87.6 - Hypokalemia Status: Acute Assessment and Plan: Potassium low at 2.9 today Administer 40 mg p.o. KCl Cautious potassium supplementation given ESRD Monitor BMP and will check magnesium (5) Insulin dependent type 2 diabetes mellitus: Code(s): E11.9 - Type 2 diabetes mellitus without complications; Z79.4 - [facility] (current) use of insulin Status: Chronic Assessment and Plan: A1c is 6.1 Continue Accu-Cheks, sliding scale insulin, hypoglycemic protocol On Lantus 80 units q.h.s. Monitor blood sugar trends and adjust as needed (6) Hypertension: Onset Date: Unknown Qualifiers: Hypertension type: essential hypertension Qualified Code(s): I10 - Essential (primary) hypertension Code(s): I10 - Essential (primary) hypertension Status: Chronic Assessment and Plan: Blood pressure reviewed and has been stable. Last BP 139/54 Continue carvedilol and amlodipine Monitor blood pressure trends (7) Chronic anemia: Code(s): D64.9 - Anemia, unspecified Status: Acute Assessment and Plan: Hemoglobin hematocrit consistent with baseline Continue Retacrit Monitor H&H closely Subjective Date/time seen: 12/22/20 13:32 Interval history: Date of service: 12/22/2020 Kelley segura is a 70-year-old female with a history of end-stage renal disease on hemodialysis, type 2 diabetes, cleared by neuropathy, osteomyelitis of the right foot with several recent hospital admissions related to this, hypertension, hyperlipidemia, anemia chronic disease, and several other comorbidities who is seen in follow-up for osteomyelitis of the right foot. She reports that she is feeling well today. She denies any pain of her right foot. She denies neuropathy of her lower extremities to me, though it has been documented extensively elsewhere that she has chronic neuropathy and poor sensation of the feet. She has not noticed any pus, drainage, redness, or swelling of the foot. She reports that when she walks she does not bear weight on the right foot. She complains of generalized pruritis
[2020-12-22 13:34] VITALS: BMI 38.0
[2020-12-22 14:00] VITALS: BP 107/37; PULSE 64; RESP 12; TEMP 36.7; O2SAT 92
--- NOTE | 2020-12-22 14:45 | PM.CNNEP ---
Assessment and Plan Assessment and plan (1) End stage renal disease: Code(s): N18.6 - End stage renal disease Status: Chronic Assessment and Plan: the patient has end-stage renal disease. This is due to diabetes and hypertension. She had dialysis yesterday and is due tomorrow. I wrote orders. The patient's volume status looks okay. I will take a couple of Liters off. The patient's potassium is low. She received some potassium chloride p.o.. Will check it again tomorrow and decide what bath DUs. For now the bath order is 3 K . (2) Osteomyelitis: Qualifiers: Laterality: right Osteomyelitis location: foot Osteomyelitis type: other Qualified Code(s): M86.8X7 - Other osteomyelitis, ankle and foot Code(s): M86.9 - Osteomyelitis, unspecified Status: Acute Assessment and Plan: The patient has recurrent infection in her foot. she is on imipenem (3) Hypokalemia: Code(s): E87.6 - Hypokalemia Status: Acute Assessment and Plan: the patient has a low potassium. She was given 40 mEq of potassium chloride by MELRY Jorge (4) Diabetes: Code(s): E11.9 - Type 2 diabetes mellitus without complications Status: Acute Assessment and Plan: patient is on Accu-Cheks and sliding-scale insulin (5) Hypertension: Onset Date: Unknown Qualifiers: Hypertension type: essential hypertension Qualified Code(s): I10 - Essential (primary) hypertension Code(s): I10 - Essential (primary) hypertension Status: Chronic Assessment and Plan: her blood pressure is under good control. She takes amlodipine carvedilol at home. 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 The patient will get Epogen with dialysis. MCV is high so will check a B12 and folate History of Present Illness Reason for Consult Consult date: 12/22/20 Chief Complaint Chief complaint: Osteomyelitis History of Present Illness Narrative: Kelley is a very pleasant 70-year-old lady who has multiple medical problems including end-stage renal disease on dialysis 3 times a week, hypertension, anemia, renal osteodystrophy, diabetes, GERD, pulmonary hypertension, diastolic dysfunction, hypertension, hyperlipidemia, anxiety, arthritis, stroke, splenic infarct, history of COVID, who has a right foot wound. This was debrided by Dr. gonzales in October during her last admission. She was on a wound VAC for a while and then this. Three weeks ago and she was getting daily dressing changes. Apparently things were looking good until the day of admission when she developed some drainage and odoras well as some swelling next to the wound so she came to the ER. She was seen in the ER and found to have a foot infection so she was admitted and placed on antibiotics. Her sugars have been okay. She has been going to dialysis. She is due tomorrow. She does not smoke or drink Review of Systems Constitutional: Constitutional: Reports no additional constitutional complaints Eyes: Eyes: Reports no additional eye complaints ENT: Reports system reviewed and no additional complaints, except as documented Cardiovascular: Cardiovascular: Reports no additional cardiovascular complaints Respiratory: Respiratory: Reports no additional respiratory complaints Gastrointestinal: Gastrointestinal: Reports no additional gastrointestinal complaints Genitourinary: Genitourinary: Reports no additional female genitourinary complaints Musculoskeletal: Musculoskeletal: Reports no additional musculoskeletal complaints Integumentary/Breasts: Skin/Breast: Reports system reviewed and no additional complaints, except as docu Neurologic: Reports system reviewed and no additional complaints, except as documented
[2020-12-22] MEDS: EUCERIN CREAM 120 GM JAR 1 APPLIC TOPICAL (15:00)
[2020-12-22 16:57] LABS: Glucose Point of Care 162 mg/dl (65-105)
[2020-12-22 18:12] VITALS: PULSE 64
[2020-12-22 20:20] VITALS: BP 105/41; PULSE 63; RESP 17; TEMP 36.9; O2SAT 93
[2020-12-22 20:27] VITALS: PULSE 64; RESP 17; O2SAT 94
[2020-12-22] MEDS: DOCUSATE SODIUM 100 MG CAPSULE PO (20:32)
[2020-12-22] MEDS: INSULIN GLARGINE (*BKC) 100 UNITS/ML 8 UNITS SUB-Q (20:33)
[2020-12-22 20:53] LABS: Glucose Point of Care 161 mg/dl (65-105)
[2020-12-23] VITALS (18 sets, daily range): BP systolic 83–124; BP diastolic 37–69; PULSE 55–96; RESP 16–20; TEMP 35.7–36.7; O2SAT 88–99
[2020-12-23 05:55] LABS: Hematocrit 32.4 % (37.0-47.0); Hemoglobin 10.3 g/dL (12.0-15.0); Mean Corpuscular HGB Conc 31.8 g/dl (32-36); Mean Corpuscular Hemoglobin 32.3 pg (26-34); Mean Corpuscular Volume 101.6 fl (80-100); Platelet Count Result 287 k/mm3 (150-375); Red Blood Count 3.19 M/mm3 (4.2-5.4); Red Cell Distribution Width 14.4 % (11.5-14.5); White Blood Count 13.1 K/mm3 (4.5-10.0)
[2020-12-23 06:07] LABS: Albumin Level 3.3 g/dL (3.5-5.1); Anion Gap 9 mmol/L (8-16); Blood Urea Nitrogen 45 mg/dL (7-17); Carbon Dioxide 31 mmol/L (22-30); Chloride 89 mmol/L (98-107); Estimated CRCL calculation 10 ml/min; Estimated Glomerular Filt Rate 8; Glucose 147 mg/dL (65-110); Phosphorus 4.8 mg/dL (2.5-4.5); Potassium 3.2 mmol/L (3.4-5.0); Sodium 129 mmol/L (137-145)
--- NOTE | 2020-12-23 06:56 | WPDHPUPDATE1 ---
History and Physical Update Update Date/Time: 12/23/20 06:56 History and Physical has been reviewed, including an updated exam of the patient. There are NO changes in the patient's condition. Risks, benefits, and alternatives have been discussed and questions answered. Patient agrees to proceed with procedure.
[2020-12-23 07:12] LABS: Folic Acid 11.8 ng/mL (2.76->20)
[2020-12-23 07:48] LABS: Glucose Point of Care 141 mg/dl (65-105)
[2020-12-23] MEDS: POTASSIUM CHLORIDE 20 MEQ TABLET PO (09:11)
[2020-12-23] MEDS: amLODIPine BESYLATE 5 MG TABLET 10 MG PO (09:12)
[2020-12-23] MEDS: carvediloL 25 MG TABLET PO ×2 (09:12→17:08)
[2020-12-23] MEDS: LIDOCAINE 5% PATCH 1 PATCH TOPICAL (09:12)
[2020-12-23] MEDS: EUCERIN CREAM 120 GM JAR 1 APPLIC TOPICAL (09:13)
[2020-12-23] MEDS: COLLAGENASE OINT 30 GM TUBE 1 APPLIC TOPICAL (09:13)
--- NOTE | 2020-12-23 11:23 | WPDANESEPPF ---
Anes - Initial Pre Proc Eval Procedure: Operation Date: 12/23/20 13:00 Proposed Procedures p Excisional Debridement Right Diabetic Foot Ulcer, Excision Right Foot Osteomyelitis - Rios Varma MD Date/Time: 12/23/20 11:23 Surgeon: Sandra Jorge PA-C Pre Op Diagnosis: Osteomyelitis Patient Data Age: 70 Gender: F Height: 1.6 m Weight: 96.2 kg Last Vital Signs Temp 36.7 C 12/23/20 05:57 Pulse 67 12/23/20 05:57 Resp 18 12/23/20 05:57 BP 120/40 L 12/23/20 05:57 Pulse Ox 95 12/23/20 05:57 Allergies Allergy/AdvReac Type Severity Reaction Status Date / Time No Known Allergies Allergy Mild Verified 12/21/20 23:27 Home Medications Medication Instructions Recorded Confirmed Type bupropion HCl [Wellbutrin SR] 150 mg PO DAILY 05/30/19 12/21/20 History Eliquis 2.5 mg PO BID 30 Days #60 tablet 07/10/19 12/21/20 Rx amlodipine 10 mg PO DAILY 09/07/20 12/21/20 History atorvastatin 20 mg PO HS 09/07/20 12/22/20 History allopurinol 100 mg PO DAILY 10/21/20 12/21/20 History carvedilol 25 mg PO DAILY 10/21/20 12/21/20 History docusate sodium 100 mg PO HS #0 cap 10/29/20 12/21/20 Rx famotidine 20 mg PO QAM #0 tablet 10/29/20 12/21/20 Rx Lantus U-100 Insulin 8 unit SUBCUT HS #0 ml 11/20/20 12/21/20 Rx Saccharomyces boulardii [Florastor] 250 mg PO BID #14 cap 11/20/20 12/21/20 Rx lidocaine [Lidoderm] 1 patch TOPICAL DAILY #30 ea 11/20/20 12/21/20 Rx Laboratory Tests 12/22/20 12/22/20 12/22/20 11:49 16:53 20:26 WBC RBC Hgb Hct MCV MCH MCHC RDW Plt Count MPV Sodium Potassium Chloride Carbon Dioxide Anion Gap BUN Creatinine Estim Creat Clear Calc Estimated GFR Glucose POC Capillary Glucose 170 mg/dl H mg/dl 162 mg/dl H mg/dl 161 mg/dl H mg/dl (65-105) (65-105) (65-105) Calcium Phosphorus Albumin Vitamin B12 Folate 12/23/20 12/23/20 12/23/20 05:34 05:35 07:37 WBC 13.1 K/mm3 H K/mm3 (4.5-10.0) RBC 3.19 M/mm3 L M/mm3 (4.2-5.4) Hgb 10.3 g/dL L g/dL (12.0-15.0) Hct 32.4 % L % (37.0-47.0) MCV 101.6 fl H fl (80-100) MCH 32.3 pg pg (26-34) MCHC 31.8 g/dl L g/dl (32-36) RDW 14.4 % % (11.5-14.5) Plt Count 287 k/mm3 k/mm3 (150-375) MPV 11.0 fl H fl (7.4-10.4) Sodium 129 mmol/L L mmol/L (137-145) Potassium 3.2 mmol/L L mmol/L (3.4-5.0) Chloride 89 mmol/L L mmol/L (98-107) Carbon Dioxide 31 mmol/L H mmol/L (22-30) Anion Gap 9 mmol/L mmol/L (8-16) BUN 45 mg/dL H mg/dL (7-17) Creatinine 5.20 mg/dL H mg/dL (0.7-1.0) Estim Creat Clear Calc 10 ml/min ml/min Estimated GFR 8 L (59 - ) Glucose 147 mg/dL H mg/dL (65-110) POC Capillary Glucose 141 mg/dl H mg/dl (65-105) Calcium 9.0 mg/dL mg/dL (8.4-10.2) Phosphorus 4.8 mg/dL H mg/dL (2.5-4.5) Albumin 3.3 g/dL L g/dL (3.5-5.1) Vitamin B12 365.0 pg/mL pg/mL (239-931) Folate 11.8 ng/mL ng/mL (2.76->20) Patient hx anesthesia problems: none Family hx anesthesia problems: none Results Review: All pre-operative results and documents have been reviewed as part of the pre-operative evaluation. [facility] Past Medical History Medical History Anxiety and depression Arthritis Benign thyroid cyst Evaluated by ultrasound a couple of years ago per patient report. Cerebrovascular accident Due to embolic event following a shoulder fracture 2016 with chronic mild left-sided weakness. Chronic anemia C
[2020-12-23 11:24] LABS: Glucose Point of Care 147 mg/dl (65-105)
[2020-12-23] MEDS: diphenhydrAMINE HCl INJ 50 MG/ML VIAL 12.5 MG IV PUSH (11:50)
[2020-12-23] MEDS: SODIUM CHLORIDE 0.9% IV 500 ML 30 ML IV CONT (11:54)
[2020-12-23 13:19] LABS: Glucose Point of Care 120 mg/dl (65-105)
--- NOTE | 2020-12-23 13:21 | P.OP_ITS ---
Procedure Note - Detailed Date of Procedure 12/23/20 Pre-op Diagnosis Osteomyelitis, diabetic foot ulcer Post-op Diagnosis same Procedure Performed Excisional debridement of right diabetic foot ulcer, excision of osteomyelitis right calcaneus Surgeon Rios Varma MD Equipment Planner 1st oncology physician assistant Anesthesia general Indications 70-year-old woman with diabetes and right diabetic foot ulcer, chronic. Exacerbation with worsening of heel deep soft tissue injury and previous midfoot ulcer. Radiographs with evidence of osteomyelitis. Findings Right calcaneus with osteomyelitis involving the posterior tuberosity. 7 x 8 cm heel ulceration with exposure of bone. 6 x 8 cm midfoot ulceration with probing to the medial midfoot bone. Description of Procedure What was done: Patient identified in the preoperative holding. Informed consent given. Operative extremity marked. Patient received intravenous antibiotics. Patient brought to the operating room where underwent general anesthetic by anesthesia team. Positioned supine on operating room table. Time-out performed confirming the patient, site of the surgery and the plan. Right foot prepped draped usual sterile surgical fashion using a Betadine prep solution. The midfoot wound was addressed 1st. Fifteen blade knife used to sharply debride skin, subcutaneous tissue and muscle from the wound. Devitalized tissue was sharply excised and passed off. Final wound measurement was 6 x 8 cm. Wound thoroughly irrigated and packed open with Betadine-soaked gauze. Right heel then addressed. The necrotic cap was removed. There was necrotic tissue extending to the plantar aspect of the calcaneal tuberosity. There was noted to be infection in the tuberosity. Rongeur was then used to remove the infected portion of the tuberosity as well as the surrounding soft tissue, fascia, muscle. This was excised and passed off. Wound was thoroughly irrigated. Wound was packed open with Betadine-soaked gauze. Sterile dressing applied. The patient was then woken from anesthesia, extubated and taken to the recovery room in stable condition. All sponge, needle, instrument counts were correct at the end of the case. Implants None Estimated Blood Loss 50 Tourniquet Time 15 Urine Output 100 Packing Yes (Betadine soaked gauze) Pathology none sent Complications None Condition stable Disposition PACU
--- NOTE | 2020-12-23 14:55 | PCOTNOTE ---
Attempted to evaluate pt. for OT. Pt. just returned from debridement of infected right diabetic foot ulcer, requested to be seen tomorrow (12/24) due to pain.
--- NOTE | 2020-12-23 15:02 | P.PNIM_ITS ---
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 She underwent excisional debridement performed on 10/28/[address] Varma. Presented with worsening over the past 2 days. * Foot x-ray performed on 12/21 again showed osteomyelitis involving right 2nd through 5th metatarsal bases, cuboid and lateral cuneiform bones as well as deep plantar wound * Appreciate orthopedic surgery consultation * She is now s/p excisional debridement of right diabetic foot ulcer and excision of osteomyelitis of right calcaneus performed today by Dr. Varma. * Amputation has been discussed, however she has refused * Continue IV Primaxin and vancomycin * Appreciate wound care consultation and recommendations * Supportive care. Analgesics available as needed. Elevate the foot. * Wound cultures and blood cultures are pending. Consider ID consultation pending wound culture results for antibiotic duration recommendations. (2) Osteomyelitis of foot, right, acute: Code(s): M86.171 - Other acute osteomyelitis, right ankle and foot Status: Acute Assessment and Plan: Plan as above (3) End-stage renal disease on hemodialysis: Code(s): N18.6 - End stage renal disease; Z99.2 - Dependence on renal dialysis Status: Chronic Assessment and Plan: Her loss claim clerk is Dr. Rodríguez at [facility]. Maintained on hemodialysis Sunday//Sunday * Nephrology has been consulted for management of dialysis. * Due for dialysis today but with being in the OR, she was not able to get dialysis today and will be scheduled for tomorrow morning (4) Hypokalemia: Code(s): E87.6 - Hypokalemia Status: Acute Assessment and Plan: Potassium low at 3.2 today. Etiology for this is unclear especially given ESRD. * Administer 20 mg p.o. KCl * Cautious potassium supplementation given ESRD * Magnesium is 2.1 * Monitor BMP daily (5) Hyponatremia: Code(s): E87.1 - Hypo-osmolality and hyponatremia Status: Chronic Assessment and Plan: Sodium 129 today. Hyponatremia appears chronic on review of prior labs. * No further workup at this time. Discussed with Dr. Garcia, loss claim clerk, and expect that some of this should correct with dialysis, however unfortunately will not be able to be done today as discussed above. * Continue to monitor BMP closely (6) Insulin dependent type 2 diabetes mellitus: Code(s): E11.9 - Type 2 diabetes mellitus without complications; Z79.4 - long term (current) use of insulin Status: Chronic Assessment and Plan: A1c is 6.1. Blood sugars well controlled today. * Continue Accu-Cheks, sliding scale insulin, hypoglycemic protocol * On Lantus 80 units q.h.s. * Monitor blood sugar trends and adjust as needed (7) Hypertension: Onset Date: Unknown Qualifiers: Hypertension type: essential hypertension Qualified Code(s): I10 - Essential (primary) hypertension Code(s): I10 - Essential (primary) hypertension Status:
--- NOTE | 2020-12-23 15:02 | PM.IMPN ---
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 She underwent excisional debridement performed on 10/28/[address] Varma. Presented with worsening over the past 2 days. Foot x-ray performed on 12/21 again showed osteomyelitis involving right 2nd through 5th metatarsal bases, cuboid and lateral cuneiform bones as well as deep plantar wound Appreciate orthopedic surgery consultation She is now s/p excisional debridement of right diabetic foot ulcer and excision of osteomyelitis of right calcaneus performed today by Dr. Varma. Amputation has been discussed, however she has refused Continue IV Primaxin and vancomycin Appreciate wound care consultation and recommendations Supportive care. Analgesics available as needed. Elevate the foot. Wound cultures and blood cultures are pending. Consider ID consultation pending wound culture results for antibiotic duration recommendations. (2) Osteomyelitis of foot, right, acute: Code(s): M86.171 - Other acute osteomyelitis, right ankle and foot Status: Acute Assessment and Plan: Plan as above (3) End-stage renal disease on hemodialysis: Code(s): N18.6 - End stage renal disease; Z99.2 - Dependence on renal dialysis Status: Chronic Assessment and Plan: Her rehab department manager is Dr. Rodríguez at [facility]. Maintained on hemodialysis Sunday//Sunday Nephrology has been consulted for management of dialysis. Due for dialysis today but with being in the OR, she was not able to get dialysis today and will be scheduled for tomorrow morning (4) Hypokalemia: Code(s): E87.6 - Hypokalemia Status: Acute Assessment and Plan: Potassium low at 3.2 today. Etiology for this is unclear especially given ESRD. Administer 20 mg p.o. KCl Cautious potassium supplementation given ESRD Magnesium is 2.1 Monitor BMP daily (5) Hyponatremia: Code(s): E87.1 - Hypo-osmolality and hyponatremia Status: Chronic Assessment and Plan: Sodium 129 today. Hyponatremia appears chronic on review of prior labs. No further workup at this time. Discussed with Dr. Garcia, rehab department manager, and expect that some of this should correct with dialysis, however unfortunately will not be able to be done today as discussed above. Continue to monitor BMP closely (6) Insulin dependent type 2 diabetes mellitus: Code(s): E11.9 - Type 2 diabetes mellitus without complications; Z79.4 - [facility] (current) use of insulin Status: Chronic Assessment and Plan: A1c is 6.1. Blood sugars well controlled today. Continue Accu-Cheks, sliding scale insulin, hypoglycemic protocol On Lantus 80 units q.h.s. Monitor blood sugar trends and adjust as needed (7) Hypertension: Onset Date: Unknown Qualifiers: Hypertension type: essential hypertension Qualified Code(s): I10 - Essential (primary) hypertension Code(s): I10 - Essential (primary) hypertension Status: Chronic Assessment and Plan: Blood pressure reviewed and has been generally well controlled, a little soft postoperatively. Last BP 107/41. Continue home antihypertensives. Hold if BP decreases. Monitor blood pressure trends (8) Chronic anemia: Code(s): D64.9 - Anemia, unspecified Status: Acute Assessment and Plan: Hemoglobin hematocrit consistent with baseline Co
[2020-12-23 16:44] LABS: Glucose Point of Care 165 mg/dl (65-105)
[2020-12-23] MEDS: SACCHAROMYCES BOULARDII 250 MG CAPSULE PO (17:07)
[2020-12-23] MEDS: DOCUSATE SODIUM 100 MG CAPSULE PO ×2 (17:07→21:48)
[2020-12-23] MEDS: APIXABAN 2.5 MG TABLET PO (21:48)
[2020-12-23] MEDS: INSULIN GLARGINE (*BKC) 100 UNITS/ML 8 UNITS SUB-Q (21:49)
[2020-12-23 22:03] LABS: Glucose Point of Care 186 mg/dl (65-105)
[2020-12-24] VITALS (13 sets, daily range): BP systolic 116–121; BP diastolic 39–62; PULSE 59–86; RESP 16–18; TEMP 36–37; O2SAT 93–97
[2020-12-24] MEDS: HYDROcodone/acetaminophen (*CRX) 5-325 MG TABLET 1 TAB PO ×2 (01:25→21:37)
[2020-12-24 06:19] LABS: Hematocrit 30.4 % (37.0-47.0); Hemoglobin 9.4 g/dL (12.0-15.0); Mean Corpuscular HGB Conc 30.9 g/dl (32-36); Mean Corpuscular Hemoglobin 31.4 pg (26-34); Mean Corpuscular Volume 101.7 fl (80-100); Mean Platelet Volume 10.8 fl (7.4-10.4); Platelet Count Result 320 k/mm3 (150-375); Red Blood Count 2.99 M/mm3 (4.2-5.4); Red Cell Distribution Width 13.9 % (11.5-14.5); White Blood Count 15.1 K/mm3 (4.5-10.0)
[2020-12-24 06:43] LABS: Anion Gap 13 mmol/L (8-16); Blood Urea Nitrogen 60 mg/dL (7-17); Calcium 8.7 mg/dL (8.4-10.2); Carbon Dioxide 26 mmol/L (22-30); Chloride 89 mmol/L (98-107); Estimated CRCL calculation 9 ml/min; Estimated Glomerular Filt Rate 7; Glucose 313 mg/dL (65-110); Potassium 4.3 mmol/L (3.4-5.0); Sodium 128 mmol/L (137-145)
[2020-12-24 07:40] LABS: Glucose Point of Care 325 mg/dl (65-105)
[2020-12-24] MEDS: SACCHAROMYCES BOULARDII 250 MG CAPSULE PO ×2 (08:17→16:16)
[2020-12-24] MEDS: FAMOTIDINE 20 MG TABLET PO (08:17)
[2020-12-24] MEDS: APIXABAN 2.5 MG TABLET PO ×2 (08:17→21:36)
[2020-12-24] MEDS: amLODIPine BESYLATE 5 MG TABLET 10 MG PO (08:17)
[2020-12-24] MEDS: allopurinoL 100 MG TABLET PO (08:17)
[2020-12-24] MEDS: ATORVASTATIN 20 MG TABLET PO (08:17)
[2020-12-24] MEDS: buPROPion HCL SR (12 HR) 150 MG TAB PO (08:17)
[2020-12-24] MEDS: carvediloL 25 MG TABLET PO ×2 (08:17→16:10)
[2020-12-24] MEDS: DOCUSATE SODIUM 100 MG CAPSULE PO ×3 (08:19→21:36)
[2020-12-24] MEDS: LIDOCAINE 5% PATCH 1 PATCH TOPICAL (08:19)
[2020-12-24] MEDS: EUCERIN CREAM 120 GM JAR 1 APPLIC TOPICAL (08:19)
[2020-12-24] MEDS: INSULIN ASPART (*BKC) 100 UNITS/ML SUB-Q ×2 (08:19→16:14)
[2020-12-24] MEDS: diphenhydrAMINE HCl CAP 25 MG CAPSULE PO ×2 (08:41→16:08)
--- NOTE | 2020-12-24 10:09 | PM.PNORT ---
Progress Note: A&P Assessment and Plan (1) Osteomyelitis of foot, right, acute: Code(s): M86.171 - Other acute osteomyelitis, right ankle and foot Status: Acute Assessment and Plan: POD #1: Excisional debridement of right diabetic foot ulcer, excision of osteomyelitis right calcaneus Dressing to be changed today. Wound VAC to be placed. Will arrange for wound VAC dressing change on Sunday. Continue IV antibiotics. ID consulted. Elevate b/l LE on pillows, waffle boots. Discussed once again poor outlook for salvage of foot in the custodial. Patient wishes to proceed with conservative treatment. Will continue to follow. (2) Osteomyelitis: Qualifiers: Laterality: right Osteomyelitis location: foot Osteomyelitis type: other Qualified Code(s): M86.8X7 - Other osteomyelitis, ankle and foot Code(s): M86.9 - Osteomyelitis, unspecified Status: Acute (3) Neuropathy due to type 2 diabetes mellitus: Code(s): E11.40 - Type 2 diabetes mellitus with diabetic neuropathy, unspecified Status: Acute (4) Venous stasis dermatitis of both lower extremities: Code(s): I87.2 - Venous insufficiency (chronic) (peripheral) Status: Acute (5) Diabetic ulcer of right foot: Qualifiers: Diabetes mellitus type: type 2 Diabetic foot ulcer location: midfoot Non-pressure ulcer stage: with necrosis of bone Qualified Code(s): E11.621 - Type 2 diabetes mellitus with foot ulcer; L97.414 - Non-pressure chronic ulcer of right heel and midfoot with necrosis of bone Code(s): E11.621 - Type 2 diabetes mellitus with foot ulcer; L97.519 - Non-pressure chronic ulcer of other part of right foot with unspecified severity Status: Acute (6) End-stage renal disease needing dialysis: Code(s): N18.6 - End stage renal disease; Z99.2 - Dependence on renal dialysis Status: Acute Subjective Subjective Date/Time Seen: 12/24/20 10:09 Post Op day: 1 Interval history: POD #1: Excisional debridement of right diabetic foot ulcer, excision of osteomyelitis right calcaneus Complaints of pain and bleeding through dressing overnight. Some confusion regarding situation. No new complaints. Review of Systems Review of Systems: All systems reviewed & are unremarkable except as noted in HPI and below Exam Const: General: comfortable and no acute distress Resp: Effort & Inspection: normal respiratory effort GI: Inspection: non-distended GI Palp: Yes Soft to palpation and No Tenderness to palpation present (GI) Skin: Wounds: wounds noted (Dressing right heel ) Neuro: Cognition (Neuro): normal cognition (confusion to situation ) Extrem: Left lower extremity: foot (Large dressing right foot. Moves toes. Minimal sensation at baseline. ) Objective Data Vital Signs Vital Signs: Vital Signs - 24 hr 12/23/20 11:12 12/23/20 13:10 12/23/20 13:25 Temperature 36.7 C 36.7 C Pulse Rate 65 55 L 57 L Respiratory Rate 20 18 20 Blood Pressure 83/37 L 96/48 L 97/44 L Pulse Oximetry 95 92 94 12/23/20 13:40 12/23/20 13:55 12/23/20 14:10 Temperature Pulse Rate 60 60 60 Respiratory Rate 20 16 20 Blood Pressure 114/54 L 114/58 L 118/62 Pulse Oximetry 94 95 96 12/23/20 14:25 12/23/20 14:55 12/23/20 15:10 Temperature 36.6 C 36.6 C Pulse Rate 60 60 62 Respiratory Rate 20 16 18 Blood Pressure 107/51 L 100/46 L 107/41 L Pulse Oximetry 94 91 99 12/23/20 15:57 12/23/20 17:08 12/23/20 18:09 Temperature 36.7 C 35.7 C L Pulse Rate 96 62 61 Respiratory Rate 18 18 Blood Pressure 121/54 L 124/69 Pulse Oximetry 96 96 12/23/20 19:30 12/23/20 20:00 12/23/20 20:20 Temperature 36.2 C L Pulse Rate 64 Respiratory Rate 17 Blood Pressure 119/62 Pulse Oximetry 96 96 91 12/23/20 23:27 12/23/20 23:50 12/24/20 04:13 Temperature 36.6 C 36.4 C Pulse Rate 63 86 Respiratory Rate 17 16 Blood Pressure 105/40 L 121/48 L Pulse Oximetry 88 L 93 93 12/24/20
--- NOTE | 2020-12-24 11:24 | PCNFU ---
Nutrition Follow-Up Complete: Increased protein needs as related to wounds as evidenced by unstageable pressure ulcer. Goal: Meet estimated nutritional needs Patient is progressing towards goal. We will continue current goal. Pt current nutrition is Diabetic Consistent Carb with Nepro shakes BID and Doug BID. Last recorded weight is 99.9 kg. Bowel Motility:+BM noted 12/23 Labs Reviewed:Glu 315, Na 128,Cr 6.2,BUN 60, Hct 30.4,Hgb 9.4 Meds Noted:Florastor, Colace, Pepcid, Novolog, Eliquis, Coreg, Lipitor. Additional Notes: Patient seen today for nutrition follow up. She states appetite has not fair. She did heat sausage and eggs from breakfast tray and now given a lunchbox sandwich. POC Glucose 315. Diet supplements have been ordered for Nepro BID and Doug BID. Wounds noted: right heel unstageable. Plans for wound vac today. Monitoring: Will monitor every 5 days.
[2020-12-24 12:27] LABS: Hepatitis B Surface Antigen Negative (Negative)
[2020-12-24 12:44] LABS: Hepatitis B Surface Anti Res Negative
[2020-12-24] MEDS: EPOETIN ALFA-EPBX 10,000 UNITS/ML VIAL 10000 UNITS IV PUSH (13:15)
--- NOTE | 2020-12-24 13:18 | WPDANESPN ---
Anes - Prog Note Post-Op Date/Time: 12/24/20 13:18 Cardiovascular status: normal Respiratory status: normal Airway patency: baseline Mental status: baseline Post-Op hydration status: normal Vital Signs: Last Vital Signs Temp 36.4 C 12/24/20 10:14 Pulse 62 12/24/20 10:14 Resp 18 12/24/20 10:14 BP 118/57 L 12/24/20 10:14 Pulse Ox 96 12/24/20 10:14 Pain Score (VAS): 0 I/O: Intake & Output 12/23/20 12/24/20 12/24/20 23:59 07:59 15:59 Intake Total 440 340 240 Balance 440 340 240 Laboratory Tests 12/24/20 05:50 12/24/20 05:50 12/23/20 12/23/20 12/23/20 13:14 16:41 21:46 WBC RBC Hgb Hct MCV MCH MCHC RDW Plt Count MPV Sodium Potassium Chloride Carbon Dioxide Anion Gap BUN Creatinine Estim Creat Clear Calc Estimated GFR Glucose POC Capillary Glucose 120 H 165 H 186 H Calcium Hep Bs Antigen Hep Bs Antibody 12/24/20 12/24/20 12/24/20 05:50 05:50 07:38 WBC 15.1 H RBC 2.99 L Hgb 9.4 L Hct 30.4 L MCV 101.7 H MCH 31.4 MCHC 30.9 L RDW 13.9 Plt Count 320 MPV 10.8 H Sodium 128 L Potassium 4.3 Chloride 89 L Carbon Dioxide 26 Anion Gap 13 BUN 60 H D Creatinine 6.20 H Estim Creat Clear Calc 9 Estimated GFR 7 L Glucose 313 H POC Capillary Glucose 325 H Calcium 8.7 Hep Bs Antigen Hep Bs Antibody 12/24/20 11:23 WBC RBC Hgb Hct MCV MCH MCHC RDW Plt Count MPV Sodium Potassium Chloride Carbon Dioxide Anion Gap BUN Creatinine Estim Creat Clear Calc Estimated GFR Glucose POC Capillary Glucose Calcium Hep Bs Antigen Negative Hep Bs Antibody Negative Microbiology 12/21/20 22:24 Foot Right Wound Culture - Final Post-procedural complaints: none Patient Feedback: Patient satisfied with anesthetic care.
--- NOTE | 2020-12-24 14:06 | PCPTNOTE ---
attempted PT eval, but pt out of room at this time. Will attempt on 12/25/20.
--- NOTE | 2020-12-24 14:40 | PM.PNNEP ---
Progress Note: A&P Assessment and Plan (1) End stage renal disease: Code(s): N18.6 - End stage renal disease Status: Chronic Assessment and Plan: the patient has end-stage renal disease. This is due to diabetes and hypertension. HD underway K okay (2) Osteomyelitis: Qualifiers: Laterality: right Osteomyelitis location: foot Osteomyelitis type: other Qualified Code(s): M86.8X7 - Other osteomyelitis, ankle and foot Code(s): M86.9 - Osteomyelitis, unspecified Status: Acute Assessment and Plan: The patient has recurrent infection in her foot. she is on imipenem surgery done yesterday (3) Hypokalemia: Code(s): E87.6 - Hypokalemia Status: Acute Assessment and Plan: resolved. (4) Diabetes: Code(s): E11.9 - Type 2 diabetes mellitus without complications Status: Acute Assessment and Plan: patient is on Accu-Cheks and sliding-scale insulin (5) Hypertension: Onset Date: Unknown Qualifiers: Hypertension type: essential hypertension Qualified Code(s): I10 - Essential (primary) hypertension Code(s): I10 - Essential (primary) hypertension Status: Chronic Assessment and Plan: her blood pressure is under good control. She takes amlodipine carvedilol at home. 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 The patient will get Epogen with dialysis. MCV is high so will check a B12 and folate Subjective Date/time seen: 12/24/20 14:40 Interval history: patient is on HD eliezer it well. seen at 11:25am bp is doing well. she had surgery yesterday. there was some bleeding last night. hb okay today Review of Systems Cardiovascular: Cardiovascular: Reports no additional cardiovascular complaints Respiratory: Respiratory: Reports no additional respiratory complaints Gastrointestinal: Gastrointestinal: Reports no additional gastrointestinal complaints Genitourinary: Genitourinary: Reports no additional female genitourinary complaints Exam Narrative: WDWN in NAD skin no rash head ncat lungs clear cor reg no rub abd BS+ nontender and soft ext no edema. bandage and boot on right foot Objective Data Vital Signs Vital Signs: Vital Signs - 24 hr 12/23/20 14:55 12/23/20 15:10 12/23/20 15:57 Temperature 36.6 C 36.6 C 36.7 C Pulse Rate 60 62 96 Respiratory Rate 16 18 18 Blood Pressure 100/46 L 107/41 L 121/54 L Pulse Oximetry 91 99 96 12/23/20 17:08 12/23/20 18:09 12/23/20 19:30 Temperature 35.7 C L 36.2 C L Pulse Rate 62 61 64 Respiratory Rate 18 17 Blood Pressure 124/69 119/62 Pulse Oximetry 96 96 12/23/20 20:00 12/23/20 20:20 12/23/20 23:27 Temperature 36.6 C Pulse Rate 63 Respiratory Rate 17 Blood Pressure 105/40 L Pulse Oximetry 96 91 88 L 12/23/20 23:50 12/24/20 04:13 12/24/20 08:17 Temperature 36.4 C Pulse Rate 86 86 Respiratory Rate 16 Blood Pressure 121/48 L Pulse Oximetry 93 93 12/24/20 10:14 12/24/20 11:10 12/24/20 11:15 Temperature 36.4 C 36.7 C Pulse Rate 62 60 59 L Respiratory Rate 18 18 Blood Pressure 118/57 L 119/39 L 117/44 L Pulse Oximetry 96 12/24/20 12:15 12/24/20 13:00 12/24/20 13:45 Temperature Pulse Rate 63 64 65 Respiratory Rate Blood Pressure 121/45 L 119/45 L 116/54 L Pulse Oximetry 12/24/20 14:15 Temperature Pulse Rate 67 Respiratory Rate Blood Pressure 119/62 Pulse Oximetry Intake/Output Intake/Output: Intake & Output 12/21/20 12/22/20 12/23/20 12/24/20 23:59 23:59 23:59 23:59 Intake Total 100 2260 640 580 Output Total 25 200 Balance 100 2235 440 580 Meds/Results Medications: Active Medications Generic Name Dose Route Start Last Admin Trade Name Freq PRN Reason Stop Dose
[2020-12-24 16:13] LABS: Glucose Point of Care 231 mg/dl (65-105)
--- NOTE | 2020-12-24 17:10 | P.PNIM_ITS ---
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 She underwent excisional debridement performed on 10/28/[address] Varma. Presented with worsening over the past 2 days. * Foot x-ray performed on 12/21 again showed osteomyelitis involving right 2nd through 5th metatarsal bases, cuboid and lateral cuneiform bones as well as deep plantar wound * Appreciate orthopedic surgery consultation * She is now s/p excisional debridement of right diabetic foot ulcer and excision of osteomyelitis of right calcaneus performed today by Dr. Varma. * Amputation has been discussed, however she has refused * Continue IV Primaxin and vancomycin * Appreciate wound care consultation and recommendations * Supportive care. Analgesics available as needed. Elevate the foot. * Wound cultures and blood cultures are pending. Consider ID consultation pending wound culture results for antibiotic duration recommendations. (2) Osteomyelitis of foot, right, acute: Code(s): M86.171 - Other acute osteomyelitis, right ankle and foot Status: Acute Assessment and Plan: Plan as above (3) End-stage renal disease on hemodialysis: Code(s): N18.6 - End stage renal disease; Z99.2 - Dependence on renal dialysis Status: Chronic Assessment and Plan: Her floor layer apprentice is Dr. Rodríguez at [facility]. Maintained on hemodialysis Sunday//Sunday * Nephrology has been consulted for management of dialysis. * Due for dialysis today but with being in the OR, she was not able to get dialysis today Discussed with Dr. Garcia and will have her dialysis schedule today (4) Hypokalemia: Code(s): E87.6 - Hypokalemia Status: Acute Assessment and Plan: * Cautious potassium supplementation given ESRD * Magnesium is 2.1 * Monitor BMP daily (5) Hyponatremia: Code(s): E87.1 - Hypo-osmolality and hyponatremia Status: Chronic Assessment and Plan: Hyponatremia appears chronic on review of prior labs. * No further workup at this time. Discussed with Dr. Garcia, floor layer apprentice, and expect that some of this should correct with dialysis, however unfortunately will not be able to be done today as discussed above. * Continue to monitor BMP closely (6) Insulin dependent type 2 diabetes mellitus: Code(s): E11.9 - Type 2 diabetes mellitus without complications; Z79.4 - technician terminal and repeater (current) use of insulin Status: Chronic Assessment and Plan: A1c is 6.1. Blood sugars well controlled today. * Continue Accu-Cheks, sliding scale insulin, hypoglycemic protocol * On Lantus 80 units q.h.s. * Monitor blood sugar trends and adjust as needed (7) Hypertension: Onset Date: Unknown Qualifiers: Hypertension type: essential hypertension Qualified Code(s): I10 - Essential (primary) hypertension Code(s): I10 - Essential (primary) hypertension Status: Chronic Assessment and Plan: Blood pressure reviewed and has been generally well controll
--- NOTE | 2020-12-24 17:10 | PM.IMPN ---
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 She underwent excisional debridement performed on 10/28/[address] Varma. Presented with worsening over the past 2 days. Foot x-ray performed on 12/21 again showed osteomyelitis involving right 2nd through 5th metatarsal bases, cuboid and lateral cuneiform bones as well as deep plantar wound Appreciate orthopedic surgery consultation She is now s/p excisional debridement of right diabetic foot ulcer and excision of osteomyelitis of right calcaneus performed today by Dr. Varma. Amputation has been discussed, however she has refused Continue IV Primaxin and vancomycin Appreciate wound care consultation and recommendations Supportive care. Analgesics available as needed. Elevate the foot. Wound cultures and blood cultures are pending. Consider ID consultation pending wound culture results for antibiotic duration recommendations. (2) Osteomyelitis of foot, right, acute: Code(s): M86.171 - Other acute osteomyelitis, right ankle and foot Status: Acute Assessment and Plan: Plan as above (3) End-stage renal disease on hemodialysis: Code(s): N18.6 - End stage renal disease; Z99.2 - Dependence on renal dialysis Status: Chronic Assessment and Plan: Her gravel inspector is Dr. Rodríguez at [place]. Maintained on hemodialysis Sunday//Sunday Nephrology has been consulted for management of dialysis. Due for dialysis today but with being in the OR, she was not able to get dialysis today Discussed with Dr. Gracia and will have her dialysis schedule today (4) Hypokalemia: Code(s): E87.6 - Hypokalemia Status: Acute Assessment and Plan: Cautious potassium supplementation given ESRD Magnesium is 2.1 Monitor BMP daily (5) Hyponatremia: Code(s): E87.1 - Hypo-osmolality and hyponatremia Status: Chronic Assessment and Plan: Hyponatremia appears chronic on review of prior labs. No further workup at this time. Discussed with Dr. Garcia, gravel inspector, and expect that some of this should correct with dialysis, however unfortunately will not be able to be done today as discussed above. Continue to monitor BMP closely (6) Insulin dependent type 2 diabetes mellitus: Code(s): E11.9 - Type 2 diabetes mellitus without complications; Z79.4 - intermediate designer (current) use of insulin Status: Chronic Assessment and Plan: A1c is 6.1. Blood sugars well controlled today. Continue Accu-Cheks, sliding scale insulin, hypoglycemic protocol On Lantus 80 units q.h.s. Monitor blood sugar trends and adjust as needed (7) Hypertension: Onset Date: Unknown Qualifiers: Hypertension type: essential hypertension Qualified Code(s): I10 - Essential (primary) hypertension Code(s): I10 - Essential (primary) hypertension Status: Chronic Assessment and Plan: Blood pressure reviewed and has been generally well controlled, a little soft postoperatively. Last BP 107/41. Continue home antihypertensives. Hold if BP decreases. Monitor blood pressure trends (8) Chronic anemia: Code(s): D64.9 - Anemia, unspecified Status: Acute Assessment and Plan: Hemoglobin hematocrit consistent with baseline Continue Retacrit Monitor H&H closely Subjective Date/time seen: 12/24/20 17:10 Interval h
--- NOTE | 2020-12-24 17:31 | WPDINFPN2 ---
Progress Note: A&P Assessment and Plan (1) Osteomyelitis: Qualifiers: Laterality: right Osteomyelitis location: foot Osteomyelitis type: other Qualified Code(s): M86.8X7 - Other osteomyelitis, ankle and foot Code(s): M86.9 - Osteomyelitis, unspecified Status: Acute Assessment and Plan: Chronic and progressive OM of R foot REC Due to her progressive nature of her illness, as well as co-morbidities, BKA is only realistic option, sooner rather than later. She will decide (quality of life, sons' preference) on this vs. palliative care. Doxycycline suppression until she decides. Call if Qs Subjective Date/time seen: 12/24/20 17:31 Objective Data Vital Signs Vital Signs: Vital Signs - 24 hr 12/23/20 18:09 12/23/20 19:30 12/23/20 20:00 Temperature 35.7 C L 36.2 C L Pulse Rate 61 64 Respiratory Rate 18 17 Blood Pressure 124/69 119/62 Pulse Oximetry 96 96 96 12/23/20 20:20 12/23/20 23:27 12/23/20 23:50 Temperature 36.6 C Pulse Rate 63 Respiratory Rate 17 Blood Pressure 105/40 L Pulse Oximetry 91 88 L 93 12/24/20 04:13 12/24/20 08:17 12/24/20 10:14 Temperature 36.4 C 36.4 C Pulse Rate 86 86 62 Respiratory Rate 16 18 Blood Pressure 121/48 L 118/57 L Pulse Oximetry 93 96 12/24/20 11:10 12/24/20 11:15 12/24/20 12:15 Temperature 36.7 C Pulse Rate 60 59 L 63 Respiratory Rate 18 Blood Pressure 119/39 L 117/44 L 121/45 L Pulse Oximetry 12/24/20 13:00 12/24/20 13:45 12/24/20 14:15 Temperature Pulse Rate 64 65 67 Respiratory Rate Blood Pressure 119/45 L 116/54 L 119/62 Pulse Oximetry 12/24/20 14:45 12/24/20 15:05 12/24/20 16:10 Temperature 36.6 C Pulse Rate 66 67 68 Respiratory Rate 18 Blood Pressure 121/58 L 118/60 Pulse Oximetry Intake/Output Intake/Output: Intake & Output 12/21/20 12/22/20 12/23/20 12/24/20 23:59 23:59 23:59 23:59 Intake Total 100 2260 640 680 Output Total 25 200 3000 Balance 100 6550 241 -6325 Meds/Results Medications: Active Medications Generic Name Dose Route Start Last Admin Trade Name Freq PRN Reason Stop Dose Admin Hydrocodone Bitart/Acetaminophen 1 tab 12/24/20 00:20 12/24/20 01:25 Hydrocodone/Acetaminophen (*Crx) 5-325 Mg Tablet PO 1 tab Q6H PRN Administration Pain Rated 4-6 Allopurinol 100 mg 12/22/20 08:00 12/24/20 08:17 Allopurinol 100 Mg Tablet PO 100 mg DAILY@0800 MICHELL Administration Amlodipine Besylate 10 mg 12/22/20 09:00 12/24/20 08:17 Amlodipine Besylate 5 Mg Tablet PO 10 mg DAILY MICHELL Administration Apixaban 2.5 mg 12/22/20 09:00 12/24/20 08:17 Apixaban 2.5 Mg Tablet PO 2.5 mg Q12HR MICHELL Administration Atorvastatin Calcium 20 mg 12/22/20 09:00 12/24/20 08:17 Atorvastatin 20 Mg Tablet PO 20 mg DAILY MICHELL Administration Bupropion HCl 150 mg 12/22/20 09:00 12/24/20 08:17 Bupropion Hcl Sr (12 Hr) 150 Mg Tab PO 150 mg DAILY MICHELL Administration Carvedilol 25 mg 12/22/20 08:00 12/24/20 16:10 Carvedilol 25 Mg Tablet PO 25 mg BIDWM MICHELL Administration Dextrose 12.5 gm 12/21/20 20:38 Dextrose 50% 25 Gm/50 Ml Syringe IV PUSH PRN PRN Hypoglycemia Protocol Diphenhydramine HCl 25 mg 12/24/20 08:14 12/24/20 16:08 Diphenhydramine Hcl Cap 25 Mg Capsule PO 25 mg Q6H PRN Administration Itching Docusate Sodium 100 mg 12/22/20 21:00 12/23/20 21:48 Docusate Sodium 100 Mg Capsule PO 100 mg HS MICHELL Administration Docusate Sodium 100 mg 12/23/20 17:00 12/24/20 16:10 Docusate Sodium 100 Mg Capsule PO 100 mg BID MICHELL Administration Epoetin Adalid-epbx 10,000 units 12/23/20 09:00 12/24/20 11:20 Epoetin Adalid-Epbx 10,000 Units/Ml Vial IV PUSH Not Given TuThSa@0900 MICHELL Famotidine 20 mg 12/22/20 09:00 12/24/20 08:17 Famotidine 20 Mg Tablet PO 20 mg QAM MICHELL Administration Glucagon 1 mg 12/21/20 20:38 Glucagon For Inj 1 Mg Vial IM
[2020-12-24] MEDS: INSULIN GLARGINE (*BKC) 100 UNITS/ML 8 UNITS SUB-Q (21:36)
[2020-12-24] MEDS: DOXYCYCLINE HYCLATE 100 MG TABLET PO (21:36)
[2020-12-24 21:55] LABS: Glucose Point of Care 337 mg/dl (65-105)
--- NOTE | 2020-12-24 22:01 | CONS_ITS ---
DATE OF CONSULTATION: REASON FOR CONSULTATION: Chronic osteomyelitis. HISTORY OF PRESENT ILLNESS: A 70-year-old female, known to me from previously. She has a chronic renal failure, diabetes. She was here in the hospital in October and had MRSA bacteremia. She was treated with prolonged vancomycin through dialysis. She had microbiologic cure while she was in the hospital. She was readmitted to the hospital on December 21 through the emergency room with new pressure ulcer over the calcaneus. Wound VAC had been discontinued before and she was on no antibiotics prior to admission. She then was admitted. She has been given imipenem and vancomycin. Consultation was requested. I was not notified of the consult until 2 hours ago. She denies fever, chills, sweats, recent trauma, other antibiotic use, abdominal pain, diarrhea, or headache. ALLERGIES: NONE KNOWN. PRESENT MEDICATIONS: List reviewed. No immunosuppressants. HABITS: No tobacco. No alcohol. FAMILY HISTORY: Cancer, drug overdose, hypertension. PAST MEDICAL HISTORY: AV fistula for chronic renal failure, glaucoma surgery, diabetic retinopathy, legally blind, ROSA-BSO, splenic infarct with chronic leukocytosis, herpes zoster, retinal detachment, PAH, morbid obesity, hyperlipidemia, diastolic dysfunction, gout, diabetic neuropathy, gastroparesis, venous stasis, previous stroke, anxiety, and depression. REVIEW OF SYSTEMS: Poor functional capacity as she has great difficulty walking and her eyesight also impairs her activities of daily living. 14-point review otherwise negative. 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 She has 2 sons, who help her out as much as they can. She lives alone. She enjoys gardening and cooking, but cannot do either one much at this time due to her various illnesses. PHYSICAL EXAMINATION: GENERAL: Elderly female appears her actual age. No acute distress. VITAL SIGNS: Afebrile, pulse 67, respirations 18, and blood pressure 118/60. SKIN: Warm and dry. Decreased turgor. Ecchymoses. NODES: No cervical adenopathy. EENT: Conjunctivae are clear. No icterus. Oral mucosa is well hydrated. No paranasal sinus erythema, edema, tenderness. NECK: No masses, thyromegaly meningismus. LUNGS: Clear to auscultation and percussion. Good aeration. CARDIAC: Regular rate and rhythm. No murmurs or gallops. Peripheral pulses 1+ and equal. Unable to palpate dorsalis pedis. ABDOMEN: Obese, nontender. No mass. Nondistended. No organomegaly. EXTREMITIES: Right foot is dressed. She has chronic venous stasis skin changes. LABORATORY DATA: Blood cultures, no growth with 3 days incubation. Wound culture, skin yemi only. White blood cell count chronically elevated, currently 15.1, hemoglobin 9.4, platelets are 320. Chemistry panel is reviewed as one would expect for chronic renal failure. Accu-Cheks variable. Hemoglobin A1c 6.1%. Vancomycin levels are not redone. RADIOLOGY: Foot x-ray shows osteomyelitis, right 2nd through the 5th metatarsal bases, cuboid and lateral cuneiform bones and suspected calcaneus involvement. ASSESSMENT: 1. Prior methicillin-resistant Staphylococcus aureus bacteremia due to diabetic foot infection, right foot, microbiologic cure. 2. Chronic osteomyelitis of the right foot, progressive despite multiple medical and surgical intervention over time. She also had debridement performed yesterday indicative of calcaneus osteomyelitis. I suspect methicillin-resistant Staphylococcus aureus is the predominant if not the only pathogen. 3. Chronic renal failure. 4. Legally blind and poor functional status. 5. Diabetes mellitus, well controlled currently, but with multiple end-organ complications. 6. Chronic leukocytosis because
[2020-12-25] VITALS (18 sets, daily range): BP systolic 109–135; BP diastolic 42–69; PULSE 65–85; RESP 16–24; TEMP 33.3–37.1; O2SAT 92–96
[2020-12-25] LABS: Glucose Point of Care 204 mg/dl (65-105)
[2020-12-25] MEDS: diphenhydrAMINE HCl CAP 25 MG CAPSULE PO ×2 (01:20→19:53)
[2020-12-25 05:46] LABS: Basophils Absolute Auto 0.1 K/mm3 (0.0-0.1); Basophils Percent Auto 0.5 % (0.2-1.2); Eosinophils Percent Auto 0.3 % (0-4.4); Hematocrit 30.5 % (37.0-47.0); Hemoglobin 9.1 g/dL (12.0-15.0); Immature Granulocyte Absolute 0.18 K/mm3 (0.00-0.031); Immature Granulocyte Percent A 1.4 % (0-0.5); Lymphocytes Absolute Auto 1.31 K/mm3 (0.9-3.2); Lymphocytes Percent Auto 10.2 % (18.3-44.2); Mean Corpuscular HGB Conc 29.8 g/dl (32-36); Mean Corpuscular Volume 110.5 fl (80-100); Mean Platelet Volume 10.7 fl (7.4-10.4); Monocytes Absolute Auto 0.7 K/mm3 (0.1-0.6); Monocytes Percent Auto 5.7 % (2.6-8.5); Neutrophils Absolute Auto 10.6 K/mm3 (1.3-6.7); Neutrophils Percent Auto 81.9 % (45.5-73.1); Platelet Count Result 318 k/mm3 (150-375); Red Blood Count 2.76 M/mm3 (4.2-5.4); Red Cell Distribution Width 14.6 % (11.5-14.5); White Blood Count 12.9 K/mm3 (4.5-10.0)
[2020-12-25 06:14] LABS: Albumin Level 3.3 g/dL (3.5-5.1); Anion Gap 11 mmol/L (8-16); Blood Urea Nitrogen 36 mg/dL (7-17); Calcium 8.6 mg/dL (8.4-10.2); Carbon Dioxide 32 mmol/L (22-30); Chloride 94 mmol/L (98-107); Estimated CRCL calculation 14 ml/min; Estimated Glomerular Filt Rate 12; Glucose 117 mg/dL (65-110); Phosphorus 4.3 mg/dL (2.5-4.5); Potassium 3.6 mmol/L (3.4-5.0); Sodium 137 mmol/L (137-145)
[2020-12-25 07:23] LABS: Hypochromasia 1+ (NORMAL); Macrocytosis 1+ (NORMAL); Platelet Estimate Adequate (Adequate)
[2020-12-25] MEDS: FAMOTIDINE 20 MG TABLET PO (08:15)
[2020-12-25] MEDS: allopurinoL 100 MG TABLET PO (08:15)
[2020-12-25] MEDS: carvediloL 25 MG TABLET PO ×2 (08:15→17:34)
[2020-12-25] MEDS: LIDOCAINE 5% PATCH 1 PATCH TOPICAL (08:15)
[2020-12-25 08:16] LABS: Glucose Point of Care 94 mg/dl (65-105)
[2020-12-25] MEDS: buPROPion HCL SR (12 HR) 150 MG TAB PO (08:16)
[2020-12-25] MEDS: APIXABAN 2.5 MG TABLET PO ×2 (08:16→19:54)
[2020-12-25] MEDS: amLODIPine BESYLATE 5 MG TABLET 10 MG PO (08:16)
[2020-12-25] MEDS: ATORVASTATIN 20 MG TABLET PO (08:16)
[2020-12-25] MEDS: DOXYCYCLINE HYCLATE 100 MG TABLET PO ×2 (08:16→19:54)
[2020-12-25] MEDS: DOCUSATE SODIUM 100 MG CAPSULE PO ×2 (08:16→19:54)
[2020-12-25] MEDS: SACCHAROMYCES BOULARDII 250 MG CAPSULE PO ×2 (08:17→17:34)
[2020-12-25] MEDS: EUCERIN CREAM 120 GM JAR 1 APPLIC TOPICAL (08:17)
--- NOTE | 2020-12-25 09:00 | PC.NURSE ---
Pt to dialysis
--- NOTE | 2020-12-25 09:21 | PCPTNOTE ---
Attempted PT, however pt has left for dialysis the day. Will attempt this afternoon.
--- NOTE | 2020-12-25 11:05 | PM.PNORT ---
Progress Note: A&P Additional Plan postop right foot debridement for osteomyelitis. continue dressing per routine. awaiting wound vac sunday. Subjective Subjective Date/Time Seen: 12/25/20 11:05 right foot osteo s/p debridement. no new complaints. Review of Systems Review of Systems: All systems reviewed & are unremarkable except as noted in HPI and below Exam Extrem: Other: dressing dry, calf soft non tender. decreased sensation (unchanged) to toes Objective Data Vital Signs Vital Signs: Vital Signs - 24 hr 12/24/20 11:10 12/24/20 11:15 12/24/20 12:15 Temperature 36.7 C Pulse Rate 60 59 L 63 Respiratory Rate 18 Blood Pressure 119/39 L 117/44 L 121/45 L Pulse Oximetry 12/24/20 13:00 12/24/20 13:45 12/24/20 14:15 Temperature Pulse Rate 64 65 67 Respiratory Rate Blood Pressure 119/45 L 116/54 L 119/62 Pulse Oximetry 12/24/20 14:45 12/24/20 15:05 12/24/20 16:10 Temperature 36.6 C Pulse Rate 66 67 68 Respiratory Rate 18 Blood Pressure 121/58 L 118/60 Pulse Oximetry 12/24/20 20:00 12/25/20 05:59 12/25/20 08:15 Temperature 36.0 C L 33.3 C L Pulse Rate 62 66 85 Respiratory Rate 18 18 Blood Pressure 119/60 109/64 Pulse Oximetry 97 92 12/25/20 09:15 12/25/20 09:26 12/25/20 09:49 Temperature 37.1 C Pulse Rate 66 65 65 Respiratory Rate 16 Blood Pressure 135/60 126/68 129/63 Pulse Oximetry 12/25/20 10:10 12/25/20 10:30 12/25/20 10:50 Temperature Pulse Rate 65 65 66 Respiratory Rate Blood Pressure 126/64 120/64 118/58 L Pulse Oximetry Intake/Output Intake/Output: Intake & Output 12/22/20 12/23/20 12/24/20 12/25/20 23:59 23:59 23:59 23:59 Intake Total 2260 640 1160 240 Output Total 25 200 3000 Balance 2235 440 -1840 240 Meds/Results Medications: Active Medications Generic Name Dose Route Start Last Admin Trade Name Freq PRN Reason Stop Dose Admin Hydrocodone Bitart/Acetaminophen 1 tab 12/24/20 00:20 12/24/20 21:37 Hydrocodone/Acetaminophen (*Crx) 5-325 Mg Tablet PO 1 tab Q6H PRN Administration Pain Rated 4-6 Allopurinol 100 mg 12/22/20 08:00 12/25/20 08:15 Allopurinol 100 Mg Tablet PO 100 mg DAILY@0800 MICHELL Administration Amlodipine Besylate 10 mg 12/22/20 09:00 12/25/20 08:16 Amlodipine Besylate 5 Mg Tablet PO 10 mg DAILY MICHELL Administration Apixaban 2.5 mg 12/22/20 09:00 12/25/20 08:16 Apixaban 2.5 Mg Tablet PO 2.5 mg Q12HR MICHELL Administration Atorvastatin Calcium 20 mg 12/22/20 09:00 12/25/20 08:16 Atorvastatin 20 Mg Tablet PO 20 mg DAILY MICHELL Administration Benzonatate 100 mg 12/24/20 17:30 Benzonatate 100 Mg Capsule PO TID PRN Cough Bupropion HCl 150 mg 12/22/20 09:00 12/25/20 08:16 Bupropion Hcl Sr (12 Hr) 150 Mg Tab PO 150 mg DAILY MICHELL Administration Carvedilol 25 mg 12/22/20 08:00 12/25/20 08:15 Carvedilol 25 Mg Tablet PO 25 mg BIDWM MICHELL Administration Dextrose 12.5 gm 12/21/20 20:38 Dextrose 50% 25 Gm/50 Ml Syringe IV PUSH PRN PRN Hypoglycemia Protocol Diphenhydramine HCl 25 mg 12/24/20 08:14 12/25/20 01:20 Diphenhydramine Hcl Cap 25 Mg Capsule PO 25 mg Q6H PRN Administration Itching Docusate Sodium 100 mg 12/22/20 21:00 12/24/20 21:36 Docusate Sodium 100 Mg Capsule PO 100 mg HS MICHELL Administration Docusate Sodium 100 mg 12/23/20 17:00 12/25/20 08:16 Docusate Sodium 100 Mg Capsule PO 100 mg BID MICHELL Administration Doxycycline Hyclate 100 mg 12/24/20 21:00 12/25/20 08:16 Doxycycline Hyclate 100 Mg Tablet PO 100 mg Q12HR MICHELL Administration Epoetin Adalid-epbx 10,000 units 12/23/20 09:00 12/24/20 11:20 Epoetin Adalid-Epbx 10,000 Units/Ml Vial IV PUSH Not Given TuThSa@0900 MICHELL Famotidine 20 mg 12/22/20 09:00 12/25/20 08:15 Famotidine 20 Mg Tablet PO 20 mg QAM MICHELL Administration Glucagon 1 mg 12/21/20 20:38 Glucagon F
--- NOTE | 2020-12-25 11:31 | PM.PNNEP ---
Progress Note: A&P Assessment and Plan (1) End stage renal disease: Code(s): N18.6 - End stage renal disease Status: Chronic Assessment and Plan: the patient has end-stage renal disease. This is due to diabetes and hypertension. HD underway. Blood pressure is doing well. We are removing a little bit of fluid. (2) Osteomyelitis: Qualifiers: Laterality: right Osteomyelitis location: foot Osteomyelitis type: other Qualified Code(s): M86.8X7 - Other osteomyelitis, ankle and foot Code(s): M86.9 - Osteomyelitis, unspecified Status: Acute Assessment and Plan: The patient has recurrent infection in her foot. she is on imipenem surgery done yesterday To get a oocoy-umb-tvua amputation at some point. (3) Hypokalemia: Code(s): E87.6 - Hypokalemia Status: Acute Assessment and Plan: resolved. (4) Diabetes: Code(s): E11.9 - Type 2 diabetes mellitus without complications Status: Acute Assessment and Plan: patient is on Accu-Cheks and sliding-scale insulin (5) Hypertension: Onset Date: Unknown Qualifiers: Hypertension type: essential hypertension Qualified Code(s): I10 - Essential (primary) hypertension Code(s): I10 - Essential (primary) hypertension Status: Chronic Assessment and Plan: her blood pressure is under good control. She takes amlodipine carvedilol at home and her blood pressure is good on this regimen currently as well. 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 The patient will get Epogen with dialysis. MCV is high. B12 and folate are okay Subjective Date/time seen: 12/25/20 11:31 Interval history: patient is on HD eliezer it well. seen at 10:45 a.m. bp is doing well. She is sad that she has to have an amputation but is accepting of this situation. Exam Narrative: WDWN in NAD skin no rash head ncat lungs clear cor reg no rub abd BS+ nontender and soft ext no edema. bandage and boot on right foot Objective Data Vital Signs Vital Signs: Vital Signs - 24 hr 12/24/20 12:15 12/24/20 13:00 12/24/20 13:45 Temperature Pulse Rate 63 64 65 Respiratory Rate Blood Pressure 121/45 L 119/45 L 116/54 L Pulse Oximetry 12/24/20 14:15 12/24/20 14:45 12/24/20 15:05 Temperature 36.6 C Pulse Rate 67 66 67 Respiratory Rate 18 Blood Pressure 119/62 121/58 L 118/60 Pulse Oximetry 12/24/20 16:10 12/24/20 20:00 12/25/20 05:59 Temperature 36.0 C L 33.3 C L Pulse Rate 68 62 66 Respiratory Rate 18 18 Blood Pressure 119/60 109/64 Pulse Oximetry 97 92 12/25/20 08:15 12/25/20 09:15 12/25/20 09:26 Temperature 37.1 C Pulse Rate 85 66 65 Respiratory Rate 16 Blood Pressure 135/60 126/68 Pulse Oximetry 12/25/20 09:49 12/25/20 10:10 12/25/20 10:30 Temperature Pulse Rate 65 65 65 Respiratory Rate Blood Pressure 129/63 126/64 120/64 Pulse Oximetry 12/25/20 10:50 12/25/20 11:10 Temperature Pulse Rate 66 65 Respiratory Rate Blood Pressure 118/58 L 120/61 Pulse Oximetry Intake/Output Intake/Output: Intake & Output 12/22/20 12/23/20 12/24/20 12/25/20 23:59 23:59 23:59 23:59 Intake Total 2260 640 1160 240 Output Total 25 200 3000 Balance 2235 440 -1840 240 Meds/Results Medications: Active Medications Generic Name Dose Route Start Last Admin Trade Name Carrollq PRN Reason Stop Dose Admin Hydrocodone Bitart/Acetaminophen 1 tab 12/24/20 00:20 12/24/20 21:37 Hydrocodone/Acetaminophen (*Crx) 5-325 Mg Tablet PO 1 tab Q6H PRN Administration Pain Rated 4-6 Allopurinol 100 mg 12/22/20 08:00 12/25/20 08:15 Allopurinol 100 Mg Tablet PO 100 mg DAILY@0800 MICHELL Administration Amlodipine Besylate 10 mg 12/22
[2020-12-25 12:52] LABS: Glucose Point of Care 96 mg/dl (65-105)
[2020-12-25] MEDS: HYDROcodone/acetaminophen (*CRX) 5-325 MG TABLET 1 TAB PO (14:50)
--- NOTE | 2020-12-25 15:14 | P.PNIM_ITS ---
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 She underwent excisional debridement performed on 10/28/[address] Varma. Presented with worsening over the past 2 days. * Foot x-ray performed on 12/21 again showed osteomyelitis involving right 2nd through 5th metatarsal bases, cuboid and lateral cuneiform bones as well as deep plantar wound * Appreciate orthopedic surgery consultation * She is now s/p excisional debridement of right diabetic foot ulcer and excision of osteomyelitis of right calcaneus performed today by Dr. Varma. * Amputation has been discussed, however she has refused * Continue IV Primaxin and vancomycin * Appreciate wound care consultation and recommendations * Supportive care. Analgesics available as needed. Elevate the foot. * Wound cultures and blood cultures are pending. Id consulted recommended BKA She is considering getting it done antibiotics switched to doxycycline (2) Osteomyelitis of foot, right, acute: Code(s): M86.171 - Other acute osteomyelitis, right ankle and foot Status: Acute Assessment and Plan: Plan as above (3) End-stage renal disease on hemodialysis: Code(s): N18.6 - End stage renal disease; Z99.2 - Dependence on renal dialysis Status: Chronic Assessment and Plan: Her pit boss is Dr. Rodríguez at [place]. Maintained on hemodialysis Sunday//Sunday * Nephrology has been consulted for management of dialysis. Dialysis as per schedule per Nephrology (4) Hypokalemia: Code(s): E87.6 - Hypokalemia Status: Acute Assessment and Plan: * Cautious potassium supplementation given ESRD * Magnesium is 2.1 * Monitor BMP daily (5) Hyponatremia: Code(s): E87.1 - Hypo-osmolality and hyponatremia Status: Chronic Assessment and Plan: Hyponatremia appears chronic on review of prior labs. * No further workup at this time. Discussed with Dr. Garcia, pit boss, and expect that some of this should correct with dialysis, however unfortunately will not be able to be done today as discussed above. 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 Blood sugars well controlled today. * Continue Accu-Cheks, sliding scale insulin, hypoglycemic protocol * On Lantus 80 units q.h.s. * Monitor blood sugar trends and adjust as needed (7) Hypertension: Onset Date: Unknown Qualifiers: Hypertension type: essential hypertension Qualified Code(s): I10 - Essential (primary) hypertension Code(s): I10 - Essential (primary) hypertension Status: Chronic Assessment and Plan: Blood pressure reviewed and has been generally well controlled, a little soft postoperatively. Last BP 107/41. * Continue home antihypertensives. Hold if BP decreases
--- NOTE | 2020-12-25 15:14 | PM.IMPN ---
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 She underwent excisional debridement performed on 10/28/[address] Varma. Presented with worsening over the past 2 days. Foot x-ray performed on 12/21 again showed osteomyelitis involving right 2nd through 5th metatarsal bases, cuboid and lateral cuneiform bones as well as deep plantar wound Appreciate orthopedic surgery consultation She is now s/p excisional debridement of right diabetic foot ulcer and excision of osteomyelitis of right calcaneus performed today by Dr. Varma. Amputation has been discussed, however she has refused Continue IV Primaxin and vancomycin Appreciate wound care consultation and recommendations Supportive care. Analgesics available as needed. Elevate the foot. Wound cultures and blood cultures are pending. Id consulted recommended BKA She is considering getting it done antibiotics switched to doxycycline (2) Osteomyelitis of foot, right, acute: Code(s): M86.171 - Other acute osteomyelitis, right ankle and foot Status: Acute Assessment and Plan: Plan as above (3) End-stage renal disease on hemodialysis: Code(s): N18.6 - End stage renal disease; Z99.2 - Dependence on renal dialysis Status: Chronic Assessment and Plan: Her cryptography teacher is Dr. Rodríguez at [place]. Maintained on hemodialysis Sunday//Sunday Nephrology has been consulted for management of dialysis. Dialysis as per schedule per Nephrology (4) Hypokalemia: Code(s): E87.6 - Hypokalemia Status: Acute Assessment and Plan: Cautious potassium supplementation given ESRD Magnesium is 2.1 Monitor BMP daily (5) Hyponatremia: Code(s): E87.1 - Hypo-osmolality and hyponatremia Status: Chronic Assessment and Plan: Hyponatremia appears chronic on review of prior labs. No further workup at this time. Discussed with Dr. Garcia, cryptography teacher, and expect that some of this should correct with dialysis, however unfortunately will not be able to be done today as discussed above. 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 Blood sugars well controlled today. Continue Accu-Cheks, sliding scale insulin, hypoglycemic protocol On Lantus 80 units q.h.s. Monitor blood sugar trends and adjust as needed (7) Hypertension: Onset Date: Unknown Qualifiers: Hypertension type: essential hypertension Qualified Code(s): I10 - Essential (primary) hypertension Code(s): I10 - Essential (primary) hypertension Status: Chronic Assessment and Plan: Blood pressure reviewed and has been generally well controlled, a little soft postoperatively. Last BP 107/41. Continue home antihypertensives. Hold if BP decreases. Monitor blood pressure trends (8) Chronic anemia: Code(s): D64.9 - Anemia, unspecified Status: Acute Assessment and Plan: Hemoglobin hematocrit consistent with baseline Continue Retacrit Monitor H&H closely Subjective Date/time seen: 12/25/20 15:14 Interval history: Kelley segura is a 70-year-old female with a history of end-stage renal disease on hemodialysis, type 2
[2020-12-25 16:45] LABS: Glucose Point of Care 189 mg/dl (65-105)
[2020-12-25] MEDS: INSULIN GLARGINE (*BKC) 100 UNITS/ML 8 UNITS SUB-Q (19:54)
[2020-12-25 21:36] LABS: Glucose Point of Care 250 mg/dl (65-105)
[2020-12-26 08:14] LABS: Glucose Point of Care 100 mg/dl (65-105)
[2020-12-26 09:03] VITALS: PULSE 74
[2020-12-26] MEDS: BENZONATATE 100 MG CAPSULE PO (09:03)
[2020-12-26] MEDS: buPROPion HCL SR (12 HR) 150 MG TAB PO (09:03)
[2020-12-26] MEDS: amLODIPine BESYLATE 5 MG TABLET 10 MG PO (09:03)
[2020-12-26] MEDS: carvediloL 25 MG TABLET PO ×2 (09:03→16:22)
[2020-12-26] MEDS: allopurinoL 100 MG TABLET PO (09:03)
[2020-12-26] MEDS: DOXYCYCLINE HYCLATE 100 MG TABLET PO ×2 (09:03→21:05)
[2020-12-26] MEDS: ATORVASTATIN 20 MG TABLET PO (09:03)
[2020-12-26] MEDS: LIDOCAINE 5% PATCH 1 PATCH TOPICAL (09:04)
[2020-12-26] MEDS: APIXABAN 2.5 MG TABLET PO ×2 (09:04→21:05)
[2020-12-26] MEDS: DOCUSATE SODIUM 100 MG CAPSULE PO ×3 (09:04→21:05)
[2020-12-26] MEDS: FAMOTIDINE 20 MG TABLET PO (09:04)
[2020-12-26] MEDS: SACCHAROMYCES BOULARDII 250 MG CAPSULE PO ×2 (09:05→16:22)
[2020-12-26] MEDS: EUCERIN CREAM 120 GM JAR 1 APPLIC TOPICAL (09:05)
[2020-12-26 11:51] LABS: Glucose Point of Care 139 mg/dl (65-105)
--- NOTE | 2020-12-26 12:36 | PM.PNNEP ---
Progress Note: A&P Assessment and Plan (1) End stage renal disease: Code(s): N18.6 - End stage renal disease Status: Chronic Assessment and Plan: the patient has end-stage renal disease. This is due to diabetes and hypertension. HD due on Sunday. (2) Osteomyelitis: Qualifiers: Laterality: right Osteomyelitis location: foot Osteomyelitis type: other Qualified Code(s): M86.8X7 - Other osteomyelitis, ankle and foot Code(s): M86.9 - Osteomyelitis, unspecified Status: Acute Assessment and Plan: The patient has recurrent infection in her foot. she is on imipenem To get a [id number]-lml-pyec amputation at some point. Dr. michelle to decide timing (3) Hypokalemia: Code(s): E87.6 - Hypokalemia Status: Acute Assessment and Plan: resolved. (4) Diabetes: Code(s): E11.9 - Type 2 diabetes mellitus without complications Status: Acute Assessment and Plan: patient is on Accu-Cheks and sliding-scale insulin (5) Hypertension: Onset Date: Unknown Qualifiers: Hypertension type: essential hypertension Qualified Code(s): I10 - Essential (primary) hypertension Code(s): I10 - Essential (primary) hypertension Status: Chronic Assessment and Plan: her blood pressure is under good control. 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 The patient will get Epogen with dialysis. MCV is high. B12 and folate are okay Subjective Date/time seen: 12/26/20 12:36 Interval history: patient finish dialysis yesterday and did well. bp is doing well. Sitting up in a chair and is comfortable. Exam Narrative: WDWN in NAD skin no rash head ncat lungs clear to auscultation cor reg no rub abd BS+ nontender and soft ext no edema. bandage and boot on right foot Objective Data Vital Signs Vital Signs: Vital Signs - 24 hr 12/25/20 14:00 12/25/20 17:34 12/25/20 20:00 Temperature 36.8 C 36.8 C Pulse Rate 68 80 74 Respiratory Rate 20 24 H Blood Pressure 114/48 L 116/69 Pulse Oximetry 92 96 10/09/21 20:12 12/26/20 09:03 Temperature Pulse Rate 74 Respiratory Rate Blood Pressure Pulse Oximetry 96 Intake/Output Intake/Output: Intake & Output 12/23/20 12/24/20 12/25/20 12/26/20 23:59 23:59 23:59 23:59 Intake Total 640 1160 680 740 Output Total 200 3000 1950 Balance 440 -4339 -7737 740 Meds/Results Medications: Active Medications Generic Name Dose Route Start Last Admin Trade Name Freq PRN Reason Stop Dose Admin Hydrocodone Bitart/Acetaminophen 1 tab 12/24/20 00:20 12/25/20 14:50 Hydrocodone/Acetaminophen (*Crx) 5-325 Mg Tablet PO 1 tab Q6H PRN Administration Pain Rated 4-6 Allopurinol 100 mg 12/22/20 08:00 12/26/20 09:03 Allopurinol 100 Mg Tablet PO 100 mg DAILY@0800 MICHELL Administration Amlodipine Besylate 10 mg 12/22/20 09:00 12/26/20 09:03 Amlodipine Besylate 5 Mg Tablet PO 10 mg DAILY MICHELL Administration Apixaban 2.5 mg 12/22/20 09:00 12/26/20 09:04 Apixaban 2.5 Mg Tablet PO 2.5 mg Q12HR MICHELL Administration Atorvastatin Calcium 20 mg 12/22/20 09:00 12/26/20 09:03 Atorvastatin 20 Mg Tablet PO 20 mg DAILY MICHELL Administration Benzonatate 100 mg 12/24/20 17:30 12/26/20 09:03 Benzonatate 100 Mg Capsule PO 100 mg TID PRN Administration Cough Bupropion HCl 150 mg 12/22/20 09:00 12/26/20 09:03 Bupropion Hcl Sr (12 Hr) 150 Mg Tab PO 150 mg DAILY MICHELL Administration Carvedilol 25 mg 12/22/20 08:00 12/26/20 09:03 Carvedilol 25 Mg Tablet PO 25 mg BIDWM MICHELL Administration Dextrose 12.5 gm 12/21/20 20:38 Dextrose 50% 25 Gm/50 Ml Syringe IV PUSH PRN PRN Hypoglycemia
[2020-12-26 14:00] VITALS: BP 116/57; PULSE 67; RESP 18; TEMP 36.5; O2SAT 95
--- NOTE | 2020-12-26 16:09 | P.PNIM_ITS ---
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 She underwent excisional debridement performed on 10/28/[address] Varma. Presented with worsening over the past 2 days. * Foot x-ray performed on 12/21 again showed osteomyelitis involving right 2nd through 5th metatarsal bases, cuboid and lateral cuneiform bones as well as deep plantar wound * Appreciate orthopedic surgery consultation * She is now s/p excisional debridement of right diabetic foot ulcer and excision of osteomyelitis of right calcaneus performed today by Dr. Varma. * Amputation has been discussed, however she has refused * Continue IV Primaxin and vancomycin * Appreciate wound care consultation and recommendations * Supportive care. Analgesics available as needed. Elevate the foot. * Wound cultures and blood cultures are pending. Id consulted recommended BKA She is considering getting it done antibiotics switched to doxycycline (2) Osteomyelitis of foot, right, acute: Code(s): M86.171 - Other acute osteomyelitis, right ankle and foot Status: Acute Assessment and Plan: Plan as above (3) End-stage renal disease on hemodialysis: Code(s): N18.6 - End stage renal disease; Z99.2 - Dependence on renal dialysis Status: Chronic Assessment and Plan: Her director of radiology is Dr. Rodríguez at [place]. Maintained on hemodialysis Sunday//Sunday * Nephrology has been consulted for management of dialysis. Dialysis as per schedule per Nephrology (4) Hypokalemia: Code(s): E87.6 - Hypokalemia Status: Acute Assessment and Plan: * Cautious potassium supplementation given ESRD * Magnesium is 2.1 * Monitor BMP daily (5) Hyponatremia: Code(s): E87.1 - Hypo-osmolality and hyponatremia Status: Chronic Assessment and Plan: Hyponatremia appears chronic on review of prior labs. * No further workup at this time. Discussed with Dr. Garcia, director of radiology, and expect that some of this should correct with dialysis, however unfortunately will not be able to be done today as discussed above. 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 Blood sugars well controlled today. * Continue Accu-Cheks, sliding scale insulin, hypoglycemic protocol * On Lantus 80 units q.h.s. * Monitor blood sugar trends and adjust as needed (7) Hypertension: Onset Date: Unknown Qualifiers: Hypertension type: essential hypertension Qualified Code(s): I10 - Essential (primary) hypertension Code(s): I10 - Essential (primary) hypertension Status: Chronic Assessment and Plan: Blood pressure reviewed and has been generally well controlled, a little soft postoperatively. Last BP 107/41. * Continue home antihypertensives. Hold if BP decreases
--- NOTE | 2020-12-26 16:09 | PM.IMPN ---
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 She underwent excisional debridement performed on 10/28/[address] Varma. Presented with worsening over the past 2 days. Foot x-ray performed on 12/21 again showed osteomyelitis involving right 2nd through 5th metatarsal bases, cuboid and lateral cuneiform bones as well as deep plantar wound Appreciate orthopedic surgery consultation She is now s/p excisional debridement of right diabetic foot ulcer and excision of osteomyelitis of right calcaneus performed today by Dr. Varma. Amputation has been discussed, however she has refused Continue IV Primaxin and vancomycin Appreciate wound care consultation and recommendations Supportive care. Analgesics available as needed. Elevate the foot. Wound cultures and blood cultures are pending. Id consulted recommended BKA She is considering getting it done antibiotics switched to doxycycline (2) Osteomyelitis of foot, right, acute: Code(s): M86.171 - Other acute osteomyelitis, right ankle and foot Status: Acute Assessment and Plan: Plan as above (3) End-stage renal disease on hemodialysis: Code(s): N18.6 - End stage renal disease; Z99.2 - Dependence on renal dialysis Status: Chronic Assessment and Plan: Her brand recorder is Dr. Rodríguez at [place]. Maintained on hemodialysis Sunday//Sunday Nephrology has been consulted for management of dialysis. Dialysis as per schedule per Nephrology (4) Hypokalemia: Code(s): E87.6 - Hypokalemia Status: Acute Assessment and Plan: Cautious potassium supplementation given ESRD Magnesium is 2.1 Monitor BMP daily (5) Hyponatremia: Code(s): E87.1 - Hypo-osmolality and hyponatremia Status: Chronic Assessment and Plan: Hyponatremia appears chronic on review of prior labs. No further workup at this time. Discussed with Dr. Garcia, brand recorder, and expect that some of this should correct with dialysis, however unfortunately will not be able to be done today as discussed above. Continue to monitor BMP closely (6) Insulin dependent type 2 diabetes mellitus: Code(s): E11.9 - Type 2 diabetes mellitus without complications; Z79.4 - rodent exterminator (current) use of insulin Status: Chronic Assessment and Plan: A1c is 6.1. Blood sugars well controlled today. Continue Accu-Cheks, sliding scale insulin, hypoglycemic protocol On Lantus 80 units q.h.s. Monitor blood sugar trends and adjust as needed (7) Hypertension: Onset Date: Unknown Qualifiers: Hypertension type: essential hypertension Qualified Code(s): I10 - Essential (primary) hypertension Code(s): I10 - Essential (primary) hypertension Status: Chronic Assessment and Plan: Blood pressure reviewed and has been generally well controlled, a little soft postoperatively. Last BP 107/41. Continue home antihypertensives. Hold if BP decreases. Monitor blood pressure trends (8) Chronic anemia: Code(s): D64.9 - Anemia, unspecified Status: Acute Assessment and Plan: Hemoglobin hematocrit consistent with baseline Continue Retacrit Monitor H&H closely Subjective Date/time seen: 12/26/20 16:09 Interval history: Kelley segura is a 70-year-old female with a history of end-stage renal disease on hemodialysis, type 2
[2020-12-26 16:22] VITALS: PULSE 69
[2020-12-26 16:31] LABS: Glucose Point of Care 195 mg/dl (65-105)
[2020-12-26] MEDS: INSULIN GLARGINE (*BKC) 100 UNITS/ML 8 UNITS SUB-Q (21:08)
[2020-12-26 21:14] LABS: Glucose Point of Care 193 mg/dl (65-105)
[2020-12-26 22:00] VITALS: BP 143/91; PULSE 66; RESP 16; TEMP 37; O2SAT 92
[2020-12-27 06:01] VITALS: BP 135/53; PULSE 72; RESP 18; TEMP 36.2; O2SAT 94
[2020-12-27] MEDS: HYDROcodone/acetaminophen (*CRX) 5-325 MG TABLET 1 TAB PO (06:11)
[2020-12-27 08:09] LABS: Glucose Point of Care 106 mg/dl (65-105)
[2020-12-27] MEDS: DOCUSATE SODIUM 100 MG CAPSULE PO ×3 (08:30→20:59)
[2020-12-27] MEDS: DOXYCYCLINE HYCLATE 100 MG TABLET PO ×2 (08:31→20:59)
[2020-12-27] MEDS: SACCHAROMYCES BOULARDII 250 MG CAPSULE PO ×2 (08:31→18:46)
[2020-12-27] MEDS: amLODIPine BESYLATE 5 MG TABLET 10 MG PO (08:31)
[2020-12-27] MEDS: FAMOTIDINE 20 MG TABLET PO (08:31)
[2020-12-27] MEDS: allopurinoL 100 MG TABLET PO (08:31)
[2020-12-27] MEDS: buPROPion HCL SR (12 HR) 150 MG TAB PO (08:31)
[2020-12-27 08:32] VITALS: PULSE 78
[2020-12-27] MEDS: carvediloL 25 MG TABLET PO ×2 (08:32→18:46)
[2020-12-27] MEDS: APIXABAN 2.5 MG TABLET PO ×2 (08:32→20:59)
[2020-12-27] MEDS: LIDOCAINE 5% PATCH 1 PATCH TOPICAL (08:32)
[2020-12-27] MEDS: ATORVASTATIN 20 MG TABLET PO (08:32)
[2020-12-27] MEDS: EUCERIN CREAM 120 GM JAR 1 APPLIC TOPICAL (08:33)
--- NOTE | 2020-12-27 12:59 | PM.PNORT ---
Progress Note: A&P Assessment and Plan (1) Osteomyelitis of foot, right, acute: Code(s): M86.171 - Other acute osteomyelitis, right ankle and foot Status: Acute Assessment and Plan: POD #4: Excisional debridement of right diabetic foot ulcer, excision of osteomyelitis right calcaneus Unable to place wound VAC on Sunday due to large amount of sanguinous drainage. Pressure dressing applied by wound care team. No dressing changes over the week. Dressing removed today. Green tissue noted around the heel wound consistent with Pseudomonas. New dressing applied with silver gel/gauze/4x4s and kerlex to the depth of the heel wound and midfoot wound. Dr. Buchanan with ID has evaluated the patient on 12/24. He has determined that given her chronic osteomyelitis of the right foot despite multiple debridements and antibiotics and failure to improve with said measures, there is no benefit to resuming IV antibiotics. Oral suppression with doxycycline was recommended until the patient can make a decision regarding more definitive surgical treatment. Patient now desires to proceed with BKA. Will further discuss with attending MD, Dr. Varma. Continue conservative treatment in the interim with daily dressing changes as ordered. Offload heels in bed. Antibiotic suppression per Dr. Buchanan. (2) Osteomyelitis: Qualifiers: Laterality: right Osteomyelitis location: foot Osteomyelitis type: other Qualified Code(s): M86.8X7 - Other osteomyelitis, ankle and foot Code(s): M86.9 - Osteomyelitis, unspecified Status: Acute Assessment and Plan: Chronic oral suppression with doxycyline per Dr. Buchanan if patient declines BKA. Further discussion with Dr. Varma will be required prior to proceeding. 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 (6) End-stage renal disease needing dialysis: Code(s): N18.6 - End stage renal disease; Z99.2 - Dependence on renal dialysis Status: Acute Subjective Subjective Date/Time Seen: 12/27/20 12:59 Post Op day: 4 Interval history: POD #4: Excisional debridement of right diabetic foot ulcer, excision of osteomyelitis right calcaneus Continue complaints of right heel pain. Also with complaints of malodorous wound. Now with hopes to have a BKA. Review of Systems Review of Systems: All systems reviewed & are unremarkable except as noted in HPI and below Exam Const: General: comfortable and no acute distress Resp: Effort & Inspection: normal respiratory effort GI: Inspection: non-distended GI Palp: Yes Soft to palpation and No Tenderness to palpation present (GI) Skin: Wounds: wounds noted (Dressing right heel ) Neuro: Cognition (Neuro): normal cognition (confusion to situation ) Extrem: Left lower extremity: ankle (no purposeful dorsiflexion/plantarflexion. ) and foot (Moves toes. Minimal sensation at baseline. ) Other: Dressing removed. Large wound on the calcaneus with green surrounding tissue consistent with pseudomonas. Scant sanguinous drainage from both heel and
[2020-12-27 13:27] LABS: Glucose Point of Care 163 mg/dl (65-105)
--- NOTE | 2020-12-27 14:30 | PCOTNOTE ---
Attempted to see patient twice this date. First attempt, patient was sleeping upon entering and unable to be aroused. Second attempt patient refused stating, No. I'm tired. If I don't hear anything of what's to happen, then I'll do it tomorrow.
[2020-12-27] MEDS: SILVERGEL (ELTA) 45 ML 1 APPLIC TOPICAL (14:49)
--- NOTE | 2020-12-27 15:40 | P.PNNP_ITS ---
Progress Note: A&P Assessment and Plan (1) End stage renal disease: Code(s): N18.6 - End stage renal disease Status: Chronic Assessment and Plan: * HD tomorrow and continue T/T/S schedule while hospitalized * follow electrolytes, volume status, and clearance (2) Osteomyelitis: Qualifiers: Laterality: right Osteomyelitis location: foot Osteomyelitis type: ot her Qualified Code(s): M86.8X7 - Other osteomyelitis, ankle and foot Code(s): M86.9 - Osteomyelitis, unspecified Status: Acute Assessment and Plan: * as noted by all evidence to date * will need BKA for definitive treatment/therapy * Infectious Disease recommendations noted * Orthopedics following (3) Anemia: Code(s): D64.9 - Anemia, unspecified Status: Chronic Assessment and Plan: * due to ESRD and acute illness * Epogen with HD * follow trend of H/H (4) Hypertension: Onset Date: Unknown Qualifiers: Hypertension type: essential hypertension Qualified Code(s): I10 - Essential (primary) hypertension Code(s): I10 - Essential (primary) hypertension Status: Chronic Assessment and Plan: * reasonable control at this time * follow trend of hemodynamics (5) Diabetes: Code(s): E11.9 - Type 2 diabetes mellitus without complications Status: Acute Assessment and Plan: * follow accuchecks * on SSI Will continue to follow. Subjective Date/time seen: 12/27/20 15:40 Chart reviewed - assuming care from Dr. Garcia; no apparent distress voiced at this time; no events/issues overnight or earlier this AM; hoping for surgery soon for definitve treatment of her recurrent right LE infections. Exam Narrative: General: WD/WN female in NAD Heart: normal S1 and S2; no rub Lungs: clear to auscultation Abdomen: soft, nontender, nondistended, positive bowel sounds Extremities: no cyanosis or clubbing; no edema Skin: warm and dry; right foot dressings in place Objective Data Vital Signs Vital Signs: Vital Signs Temp Pulse Resp BP Pulse Ox 12/27/20 15:33 36.7 C 68 18 125/44 L 98 12/27/20 08:32 78 12/27/20 06:01 36.2 C L 72 18 135/53 L 94 12/26/20 22:00 37.0 C 66 16 143/91 H 92 Intake/Output Intake/Output: Intake & Output 12/24/20 12/25/20 12/26/20 12/27/20 23:59 23:59 23:59 23:59 Intake Total 1160 950 438 7612 Output Total 3000 1950 200 Balance -1840 -4404 424 7743 Meds/Results Medications: Active Medications Generic Name Dose Route Start Last Admin Trade Name Freq PRN Reason Stop Dose Admin Hydrocodone Bitart/Acetaminophen 1 tab 12/24/20 00:20 12/27/20 06:11 Hydrocodone/Acetaminophen (*Crx) 5-325 Mg Tablet PO 1 tab Q6H PRN Administration Pain Rated 4-6 Allopurinol 100 mg 12/22/20 08:00 12/27/20 08:31 Allopurinol 100 Mg Tablet PO 100 mg DAILY@0800 MICHELL Administration Amlodipine Besylate 10 mg 12/22/20 09:00 12/27/20 08:31 Amlodipine Besylate 5 Mg Tablet PO 10 mg DAILY MICHELL Administration Apixaban 2.5 mg 12/22/20 09:00 12/27/20 08:32 Apixaban 2.5 Mg Tablet PO 2.5 mg Q12HR MICHELL Administration Atorvastatin Calcium 2
--- NOTE | 2020-12-27 15:40 | PM.PNNEP ---
Progress Note: A&P Assessment and Plan (1) End stage renal disease: Code(s): N18.6 - End stage renal disease Status: Chronic Assessment and Plan: HD tomorrow and continue T/T/S schedule while hospitalized follow electrolytes, volume status, and clearance (2) Osteomyelitis: Qualifiers: Laterality: right Osteomyelitis location: foot Osteomyelitis type: other Qualified Code(s): M86.8X7 - Other osteomyelitis, ankle and foot Code(s): M86.9 - Osteomyelitis, unspecified Status: Acute Assessment and Plan: as noted by all evidence to date will need BKA for definitive treatment/therapy Infectious Disease recommendations noted Orthopedics following (3) Anemia: Code(s): D64.9 - Anemia, unspecified Status: Chronic Assessment and Plan: due to ESRD and acute illness Epogen with HD follow trend of H/H (4) Hypertension: Onset Date: Unknown Qualifiers: Hypertension type: essential hypertension Qualified Code(s): I10 - Essential (primary) hypertension Code(s): I10 - Essential (primary) hypertension Status: Chronic Assessment and Plan: reasonable control at this time follow trend of hemodynamics (5) Diabetes: Code(s): E11.9 - Type 2 diabetes mellitus without complications Status: Acute Assessment and Plan: follow accuchecks on SSI Will continue to follow. Subjective Date/time seen: 12/27/20 15:40 Chart reviewed - assuming care from Dr. Garcia; no apparent distress voiced at this time; no events/issues overnight or earlier this AM; hoping for surgery soon for definitve treatment of her recurrent right LE infections. Exam Narrative: General: WD/WN female in NAD Heart: normal S1 and S2; no rub Lungs: clear to auscultation Abdomen: soft, nontender, nondistended, positive bowel sounds Extremities: no cyanosis or clubbing; no edema Skin: warm and dry; right foot dressings in place Objective Data Vital Signs Vital Signs: Vital Signs Temp Pulse Resp BP Pulse Ox 12/27/20 15:33 36.7 C 68 18 125/44 L 98 12/27/20 08:32 78 12/27/20 06:01 36.2 C L 72 18 135/53 L 94 12/26/20 22:00 37.0 C 66 16 143/91 H 92 Intake/Output Intake/Output: Intake & Output 12/24/20 12/25/20 12/26/20 12/27/20 23:59 23:59 23:59 23:59 Intake Total 1160 315 063 7749 Output Total 3000 1950 200 Balance -1840 -3247 439 7070 Meds/Results Medications: Active Medications Generic Name Dose Route Start Last Admin Trade Name Freq PRN Reason Stop Dose Admin Hydrocodone Bitart/Acetaminophen 1 tab 12/24/20 00:20 12/27/20 06:11 Hydrocodone/Acetaminophen (*Crx) 5-325 Mg Tablet PO 1 tab Q6H PRN Administration Pain Rated 4-6 Allopurinol 100 mg 12/22/20 08:00 12/27/20 08:31 Allopurinol 100 Mg Tablet PO 100 mg DAILY@0800 MICHELL Administration Amlodipine Besylate 10 mg 12/22/20 09:00 12/27/20 08:31 Amlodipine Besylate 5 Mg Tablet PO 10 mg DAILY MICHELL Administration Apixaban 2.5 mg 12/22/20 09:00 12/27/20 08:32 Apixaban 2.5 Mg Tablet PO 2.5 mg Q12HR MICHELL Administration Atorvastatin Calcium 20 mg 12/22/20 09:00 12/27/20 08:32 Atorvastatin 20 Mg Tablet PO 20 mg DAILY MICHELL Administration Benzonatate 100 mg 12/24/20 17:30 12/26/20 09:03 Benzonatate 100 Mg Capsule PO 100 mg TID PRN Administration Cough Bupropion HCl 150 mg 12/22/20 09:00 12/27/20 08:31 Bupropion Hcl Sr (12 Hr) 150 Mg Tab PO 150 mg DAILY MICHELL Administration Carvedilol 25 mg 12/22/20 08:00 12/27/20 18:46 Carvedilol 25 Mg Tablet PO 25 mg BIDWM MICHELL Administration Dextrose 12.5 gm 12/21/20 20:38 Dextrose 50% 25 Gm/50 Ml Syringe IV PUSH PRN PRN Hypoglycemia Protocol Diphenhydramine HCl 25 mg 12/24/20 08:14 12/25/20 19:53 Diphenhydramine Hcl Cap 25 Mg Capsule PO 25 mg Q6H PRN Administration
--- NOTE | 2020-12-27 15:49 | P.PNIM_ITS ---
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 She underwent excisional debridement performed on 10/28/[address] Varma. Presented with worsening over the past 2 days. * Foot x-ray performed on 12/21 again showed osteomyelitis involving right 2nd through 5th metatarsal bases, cuboid and lateral cuneiform bones as well as deep plantar wound * Appreciate orthopedic surgery consultation * She is now s/p excisional debridement of right diabetic foot ulcer and excision of osteomyelitis of right calcaneus performed today by Dr. Varma. * Amputation has been discussed, however she has refused * Continue IV Primaxin and vancomycin * Appreciate wound care consultation and recommendations * Supportive care. Analgesics available as needed. Elevate the foot. * Wound cultures and blood cultures are pending. Id consulted recommended BKA She is considering BKA awaiting timing and recommendation from Dr. Lazar antibiotics switched to doxycycline (2) Osteomyelitis of foot, right, acute: Code(s): M86.171 - Other acute osteomyelitis, right ankle and foot Status: Acute Assessment and Plan: Plan as above (3) End-stage renal disease on hemodialysis: Code(s): N18.6 - End stage renal disease; Z99.2 - Dependence on renal dialysis Status: Chronic Assessment and Plan: Her lithoduplicator operator is Dr. Rodríguez at [facility]. Maintained on hemodialysis Sunday//Sunday * Nephrology has been consulted for management of dialysis. Dialysis as per schedule per Nephrology (4) Hypokalemia: Code(s): E87.6 - Hypokalemia Status: Acute Assessment and Plan: * Cautious potassium supplementation given ESRD * Magnesium is 2.1 * Monitor BMP daily (5) Hyponatremia: Code(s): E87.1 - Hypo-osmolality and hyponatremia Status: Chronic Assessment and Plan: Hyponatremia appears chronic on review of prior labs. * No further workup at this time. Discussed with Dr. Garcia, lithoduplicator operator, and expect that some of this should correct with dialysis, however unfortunately will not be able to be done today as discussed above. * Continue to monitor BMP closely (6) Insulin dependent type 2 diabetes mellitus: Code(s): E11.9 - Type 2 diabetes mellitus without complications; Z79.4 - terminologist (current) use of insulin Status: Chronic Assessment and Plan: A1c is 6.1. Blood sugars well controlled today. * Continue Accu-Cheks, sliding scale insulin, hypoglycemic protocol * On Lantus 80 units q.h.s. * Monitor blood sugar trends and adjust as needed (7) Hypertension: Onset Date: Unknown Qualifiers: Hypertension type: essential hypertension Qualified Code(s): I10 - Essential (primary) hypertension Code(s): I10 - Essential (primary) hypertension Status: Chronic Assessment and Plan: Blood pressure reviewed and has been generally well controlled, a little soft postoperatively. Last BP 107/41. * Continue home
--- NOTE | 2020-12-27 15:49 | PM.IMPN ---
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 She underwent excisional debridement performed on 10/28/[address] Varma. Presented with worsening over the past 2 days. Foot x-ray performed on 12/21 again showed osteomyelitis involving right 2nd through 5th metatarsal bases, cuboid and lateral cuneiform bones as well as deep plantar wound Appreciate orthopedic surgery consultation She is now s/p excisional debridement of right diabetic foot ulcer and excision of osteomyelitis of right calcaneus performed today by Dr. Varma. Amputation has been discussed, however she has refused Continue IV Primaxin and vancomycin Appreciate wound care consultation and recommendations Supportive care. Analgesics available as needed. Elevate the foot. Wound cultures and blood cultures are pending. Id consulted recommended BKA She is considering BKA awaiting timing and recommendation from Dr. Lazar antibiotics switched to doxycycline (2) Osteomyelitis of foot, right, acute: Code(s): M86.171 - Other acute osteomyelitis, right ankle and foot Status: Acute Assessment and Plan: Plan as above (3) End-stage renal disease on hemodialysis: Code(s): N18.6 - End stage renal disease; Z99.2 - Dependence on renal dialysis Status: Chronic Assessment and Plan: Her pullman car clerk is Dr. Rodríguez at [facility]. Maintained on hemodialysis Sunday//Sunday Nephrology has been consulted for management of dialysis. Dialysis as per schedule per Nephrology (4) Hypokalemia: Code(s): E87.6 - Hypokalemia Status: Acute Assessment and Plan: Cautious potassium supplementation given ESRD Magnesium is 2.1 Monitor BMP daily (5) Hyponatremia: Code(s): E87.1 - Hypo-osmolality and hyponatremia Status: Chronic Assessment and Plan: Hyponatremia appears chronic on review of prior labs. No further workup at this time. Discussed with Dr. Garcia, pullman car clerk, and expect that some of this should correct with dialysis, however unfortunately will not be able to be done today as discussed above. Continue to monitor BMP closely (6) Insulin dependent type 2 diabetes mellitus: Code(s): E11.9 - Type 2 diabetes mellitus without complications; Z79.4 - watermaster (current) use of insulin Status: Chronic Assessment and Plan: A1c is 6.1. Blood sugars well controlled today. Continue Accu-Cheks, sliding scale insulin, hypoglycemic protocol On Lantus 80 units q.h.s. Monitor blood sugar trends and adjust as needed (7) Hypertension: Onset Date: Unknown Qualifiers: Hypertension type: essential hypertension Qualified Code(s): I10 - Essential (primary) hypertension Code(s): I10 - Essential (primary) hypertension Status: Chronic Assessment and Plan: Blood pressure reviewed and has been generally well controlled, a little soft postoperatively. Last BP 107/41. Continue home antihypertensives. Hold if BP decreases. Monitor blood pressure trends (8) Chronic anemia: Code(s): D64.9 - Anemia, unspecified Status: Acute Assessment and Plan: Hemoglobin hematocrit consistent with baseline Continue Retacrit Monitor H&H closely Subjective Date/time seen: 12/27/20 15:49 Interval history: Kelley segura is a 70-year-old female with a history of end-sta
[2020-12-27 15:53] VITALS: BP 125/44; PULSE 68; RESP 18; TEMP 36.7; O2SAT 98
[2020-12-27 16:54] LABS: Glucose Point of Care 147 mg/dl (65-105)
[2020-12-27 18:46] VITALS: PULSE 70
[2020-12-27] MEDS: INSULIN GLARGINE (*BKC) 100 UNITS/ML 8 UNITS SUB-Q (20:59)
[2020-12-27 21:13] LABS: Glucose Point of Care 163 mg/dl (65-105)
[2020-12-27 22:10] VITALS: BP 128/58; PULSE 67; RESP 16; TEMP 36.6; O2SAT 93
[2020-12-28] VITALS (13 sets, daily range): BP systolic 121–160; BP diastolic 48–84; PULSE 64–78; RESP 16–20; TEMP 36.4–37; O2SAT 89–97
[2020-12-28] MEDS: diphenhydrAMINE HCl CAP 25 MG CAPSULE PO (00:43)
[2020-12-28] MEDS: HYDROcodone/acetaminophen (*CRX) 5-325 MG TABLET 1 TAB PO (00:43)
[2020-12-28] MEDS: SACCHAROMYCES BOULARDII 250 MG CAPSULE PO ×2 (08:51→16:36)
[2020-12-28] MEDS: amLODIPine BESYLATE 5 MG TABLET 10 MG PO (08:51)
[2020-12-28] MEDS: LIDOCAINE 5% PATCH 1 PATCH TOPICAL (08:52)
[2020-12-28] MEDS: allopurinoL 100 MG TABLET PO (08:52)
[2020-12-28] MEDS: APIXABAN 2.5 MG TABLET PO ×2 (08:52→20:41)
[2020-12-28] MEDS: carvediloL 25 MG TABLET PO ×2 (08:52→16:37)
[2020-12-28] MEDS: buPROPion HCL SR (12 HR) 150 MG TAB PO (08:52)
[2020-12-28] MEDS: ATORVASTATIN 20 MG TABLET PO (08:52)
[2020-12-28] MEDS: FAMOTIDINE 20 MG TABLET PO (08:54)
[2020-12-28] MEDS: DOCUSATE SODIUM 100 MG CAPSULE PO ×2 (08:54→20:41)
[2020-12-28] MEDS: DOXYCYCLINE HYCLATE 100 MG TABLET PO ×2 (08:54→20:41)
[2020-12-28] MEDS: EUCERIN CREAM 120 GM JAR 1 APPLIC TOPICAL (08:54)
[2020-12-28 09:05] LABS: Glucose Point of Care 108 mg/dl (65-105)
--- NOTE | 2020-12-28 10:18 | P.PNIM_ITS ---
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 She underwent excisional debridement performed on 10/28/[address] Varma. Presented with worsening over the past 2 days. * Foot x-ray performed on 12/21 again showed osteomyelitis involving right 2nd through 5th metatarsal bases, cuboid and lateral cuneiform bones as well as deep plantar wound * Appreciate orthopedic surgery consultation * She is now s/p excisional debridement of right diabetic foot ulcer and excision of osteomyelitis of right calcaneus performed today by Dr. Varma. * Amputation has been discussed, however she has refused * Continue IV Primaxin and vancomycin * Appreciate wound care consultation and recommendations * Supportive care. Analgesics available as needed. Elevate the foot. * Wound cultures and blood cultures are pending. Id consulted recommended BKA She is considering BKA awaiting timing and recommendation from Dr. Lazar antibiotics switched to doxycycline (2) Osteomyelitis of foot, right, acute: Code(s): M86.171 - Other acute osteomyelitis, right ankle and foot Status: Acute Assessment and Plan: Plan as above (3) End-stage renal disease on hemodialysis: Code(s): N18.6 - End stage renal disease; Z99.2 - Dependence on renal dialysis Status: Chronic Assessment and Plan: Her soaking room operator is Dr. Rodríguez at [facility]. Maintained on hemodialysis Sunday//Sunday * Nephrology has been consulted for management of dialysis. Dialysis as per schedule per Nephrology (4) Hypokalemia: Code(s): E87.6 - Hypokalemia Status: Acute Assessment and Plan: * Cautious potassium supplementation given ESRD * Magnesium is 2.1 * Monitor BMP daily (5) Hyponatremia: Code(s): E87.1 - Hypo-osmolality and hyponatremia Status: Chronic Assessment and Plan: Hyponatremia appears chronic on review of prior labs. * No further workup at this time. Discussed with Dr. Garcia, soaking room operator, and expect that some of this should correct with dialysis, however unfortunately will not be able to be done today as discussed above. 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 Blood sugars well controlled today. * Continue Accu-Cheks, sliding scale insulin, hypoglycemic protocol * On Lantus 80 units q.h.s. * Monitor blood sugar trends and adjust as needed (7) Hypertension: Onset Date: Unknown Qualifiers: Hypertension type: essential hypertension Qualified Code(s): I10 - Essential (primary) hypertension Code(s): I10 - Essential (primary) hypertension Status: Chronic Assessment and Plan: Blood pressure reviewed and has been generally well controlled, a little soft postoperatively. Last BP 107/41. * Continue home
--- NOTE | 2020-12-28 10:18 | PM.IMPN ---
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 She underwent excisional debridement performed on 10/28/[address] Varma. Presented with worsening over the past 2 days. Foot x-ray performed on 12/21 again showed osteomyelitis involving right 2nd through 5th metatarsal bases, cuboid and lateral cuneiform bones as well as deep plantar wound Appreciate orthopedic surgery consultation She is now s/p excisional debridement of right diabetic foot ulcer and excision of osteomyelitis of right calcaneus performed today by Dr. Varma. Amputation has been discussed, however she has refused Continue IV Primaxin and vancomycin Appreciate wound care consultation and recommendations Supportive care. Analgesics available as needed. Elevate the foot. Wound cultures and blood cultures are pending. Id consulted recommended BKA She is considering BKA awaiting timing and recommendation from Dr. Lazar antibiotics switched to doxycycline (2) Osteomyelitis of foot, right, acute: Code(s): M86.171 - Other acute osteomyelitis, right ankle and foot Status: Acute Assessment and Plan: Plan as above (3) End-stage renal disease on hemodialysis: Code(s): N18.6 - End stage renal disease; Z99.2 - Dependence on renal dialysis Status: Chronic Assessment and Plan: Her nurse esthetician is Dr. Rodríguez at [facility]. Maintained on hemodialysis Sunday//Sunday Nephrology has been consulted for management of dialysis. Dialysis as per schedule per Nephrology (4) Hypokalemia: Code(s): E87.6 - Hypokalemia Status: Acute Assessment and Plan: Cautious potassium supplementation given ESRD Magnesium is 2.1 Monitor BMP daily (5) Hyponatremia: Code(s): E87.1 - Hypo-osmolality and hyponatremia Status: Chronic Assessment and Plan: Hyponatremia appears chronic on review of prior labs. No further workup at this time. Discussed with Dr. Garcia, nurse esthetician, and expect that some of this should correct with dialysis, however unfortunately will not be able to be done today as discussed above. Continue to monitor BMP closely (6) Insulin dependent type 2 diabetes mellitus: Code(s): E11.9 - Type 2 diabetes mellitus without complications; Z79.4 - physician office assistant (current) use of insulin Status: Chronic Assessment and Plan: A1c is 6.1. Blood sugars well controlled today. Continue Accu-Cheks, sliding scale insulin, hypoglycemic protocol On Lantus 80 units q.h.s. Monitor blood sugar trends and adjust as needed (7) Hypertension: Onset Date: Unknown Qualifiers: Hypertension type: essential hypertension Qualified Code(s): I10 - Essential (primary) hypertension Code(s): I10 - Essential (primary) hypertension Status: Chronic Assessment and Plan: Blood pressure reviewed and has been generally well controlled, a little soft postoperatively. Last BP 107/41. Continue home antihypertensives. Hold if BP decreases. Monitor blood pressure trends (8) Chronic anemia: Code(s): D64.9 - Anemia, unspecified Status: Acute Assessment and Plan: Hemoglobin hematocrit consistent with baseline Continue Retacrit Monitor H&H closely (9) Dysuria: Code(s): R30.0 - Dysuria Status: Acute Assessment and Plan: check urinalysis Subjective D
--- NOTE | 2020-12-28 10:39 | PM.PNORT ---
Progress Note: A&P Assessment and Plan (1) Osteomyelitis of foot, right, acute: Code(s): M86.171 - Other acute osteomyelitis, right ankle and foot Status: Acute Assessment and Plan: Postop day 5 right foot debridement for osteomyelitis. Long discussion today regarding options for the foot. Operative and non operative treatment reviewed. Chance for salvage and mormon of the foot with ability to bear weight very slim. Other option of amputation discussed in detail. Non operative course reviewed. Patient's questions answered. She would like to proceed with amputation. we discussed attempt at below-knee amputation. Potential for wound healing problems, infection or other complications reviewed. Chances for revision to above knee amputation discussed in detail. Patient verbalizes understanding. Discussed nonoperative and operative treatment options with the patient. Risks and benefits of each as well as alternatives were reviewed. All of the patient's questions were answered. The risks of surgery reviewed including but not limited to: Neurovascular damage, wound complication, infection, blood clot, pulmonary embolus, stroke, myocardial infarction, and anesthetic risks up to and including . Continued pain and possible dysfunction were explained. Specific risks of the procedure including later recurrence of deformity. No guarantees were offered. If hardware used, discussed risk of failure/ breakage and possible need for removal. If complications occur, the patient understands the need for further treatment, possible further surgery. Patient verbalizes understanding and wishes to proceed. PLAN: Right below-knee amputation (2) Diabetic ulcer of right foot: Qualifiers: Diabetes mellitus type: type 2 Diabetic foot ulcer location: midfoot Non-pressure ulcer stage: with necrosis of bone Qualified Code(s): E11.621 - Type 2 diabetes mellitus with foot ulcer; L97.414 - Non-pressure chronic ulcer of right heel and midfoot with necrosis of bone Code(s): E11.621 - Type 2 diabetes mellitus with foot ulcer; L97.519 - Non-pressure chronic ulcer of other part of right foot with unspecified severity Status: Acute (3) Diabetes: Qualifiers: Diabetes mellitus type: type 2 Diabetes mellitus correction insulin use: with extermination inspector use Diabetes mellitus complication status: with kidney complications Diabetes mellitus complication detail: with chronic kidney disease Chronic kidney disease stage: on chronic dialysis Qualified Code(s): E11.22 - Type 2 diabetes mellitus with diabetic chronic kidney disease; N18.6 - End stage renal disease; Z79.4 - ferry terminal agent (current) use of insulin; Z99.2 - Dependence on renal dialysis Code(s): E11.9 - Type 2 diabetes mellitus without complications Status: Acute (4) Neuropathy due to type 2 diabetes mellitus: Code(s): E11.40 - Type 2 diabetes mellitus with diabetic neuropathy, unspecified Status: Acute (5) End-stage renal disease on hemodialysis: Code(s): N18.6 - End stage renal disease; Z99.2 - Dependence on renal dialysis Status: Chronic (6) Venous stasis dermatitis of right lower extremity: Code(s): I87.2 - Venous insufficiency (chronic) (peripheral) Status: Acute Assessment and Plan: venous stasis chronic changes to bilateral lower extremities. Right lower extremity at the mid leg. Incision for amputation level for below-knee amputation demonstrated to the patient. Potential for wound healing problems and infection reviewed. Patient verbalizes understanding. Subjective Subjective Date/Time Seen: 12/28/20 10:39 Post Op day: 5 Principal diagnosis: right foot osteomyelitis, diabetic foot infection Interval history: status post debridement of right foot osteomyelitis. Removal of most of the posterior tuberosity of the calcaneus at the time of surgery. Reviewed with the patient. Also with evidence
[2020-12-28 11:58] LABS: Glucose Point of Care 145 mg/dl (65-105)
--- NOTE | 2020-12-28 12:22 | P.PNNP_ITS ---
Progress Note: A&P Assessment and Plan (1) End stage renal disease: Code(s): N18.6 - End stage renal disease Status: Chronic Assessment and Plan: * HD today and continue T/T/S schedule while hospitalized * follow electrolytes, volume status, and clearance (2) Osteomyelitis: Qualifiers: Laterality: right Osteomyelitis location: foot Osteomyelitis type: other Qualified Code(s): M86.8X7 - Other osteomyelitis, ankle and foot Code(s): M86.9 - Osteomyelitis, unspecified Status: Acute Assessment and Plan: * as noted by all evidence to date * plan right BKA for definitive treatment/therapy * Infectious Disease recommendations noted * Orthopedics following (3) Anemia: Code(s): D64.9 - Anemia, unspecified Status: Chronic Assessment and Plan: * due to ESRD and acute illness * Epogen with HD * follow trend of H/H (4) Hypertension: Onset Date: Unknown Qualifiers: Hypertension type: essential hypertension Qualified Code(s): I10 - Essential (primary) hypertension Code(s): I10 - Essential (primary) hypertension Status: Chronic Assessment and Plan: * reasonable control at this time * follow trend of hemodynamics (5) Diabetes: Qualifiers: Diabetes mellitus type: type 2 Diabetes mellitus assisted insulin use: with assisted use Diabetes mellitus complication status: with kidney complica tions Diabetes mellitus complication detail: with chronic kidney disease Chronic kidney disease stage: on chronic dialysis Qualified Code(s): E11.22 - Type 2 diabetes mellitus with diabetic chronic kidney disease; N18.6 - End stage renal disease; Z79.4 - halfway (current) use of insulin; Z99.2 - Dependence on renal dialysis Code(s): E11.9 - Type 2 diabetes mellitus without complications Status: Acute Assessment and Plan: * follow accuchecks * on SSI Will continue to follow. Subjective Date/time seen: 12/28/20 12:22 Tolerating dialysis at the time of my visit (seen on HD at 12:15PM); has decided to proceed with right after discussion with Orthopedics regarding all of her treatment options; no apparent distress at this time; no events/issues overnight or earlier this AM. Exam Narrative: General: WD/WN female in NAD Heart: normal S1 and S2; no rub Lungs: clear to auscultation Abdomen: soft, nontender, nondistended, positive bowel sounds Extremities: no cyanosis or clubbing; no edema Skin: warm and dry; right foot dressings in place Objective Data Vital Signs Vital Signs: Vital Signs Temp Pulse Resp BP Pulse Ox 12/28/20 08:52 78 12/28/20 06:07 36.6 C 68 16 127/48 L 89 L 12/27/20 22:10 36.6 C 67 16 128/58 L 93 12/27/20 18:46 70 12/27/20 15:53 36.7 C 68 18 125/44 L 98 Intake/Output Intake/Output: Intake & Output 12/25/20 12/26/20 12/27/20 12/28/20 23:59 23:59 23:59 23:59 Intake Total 145 730 1432 240 Output Total 1950 200 Balance -8204 935 7079 240 Meds/Results Medications: Active Medications Generic Name Dose Route Start Last Admin Trade Name Freq PRN Reason Stop Dose Admin Hydrocodone Bitart/Acetaminophen 1 tab 12/24/20 00:20 12/28/20 00:43 Hydrocodone/Acetaminophen (*Crx) 5325
--- NOTE | 2020-12-28 12:22 | PM.PNNEP ---
Progress Note: A&P Assessment and Plan (1) End stage renal disease: Code(s): N18.6 - End stage renal disease Status: Chronic Assessment and Plan: HD today and continue T/T/S schedule while hospitalized follow electrolytes, volume status, and clearance (2) Osteomyelitis: Qualifiers: Laterality: right Osteomyelitis location: foot Osteomyelitis type: other Qualified Code(s): M86.8X7 - Other osteomyelitis, ankle and foot Code(s): M86.9 - Osteomyelitis, unspecified Status: Acute Assessment and Plan: as noted by all evidence to date plan right BKA for definitive treatment/therapy Infectious Disease recommendations noted Orthopedics following (3) Anemia: Code(s): D64.9 - Anemia, unspecified Status: Chronic Assessment and Plan: due to ESRD and acute illness Epogen with HD follow trend of H/H (4) Hypertension: Onset Date: Unknown Qualifiers: Hypertension type: essential hypertension Qualified Code(s): I10 - Essential (primary) hypertension Code(s): I10 - Essential (primary) hypertension Status: Chronic Assessment and Plan: reasonable control at this time follow trend of hemodynamics (5) Diabetes: Qualifiers: Diabetes mellitus type: type 2 Diabetes mellitus retirement insulin use: with retirement use Diabetes mellitus complication status: with kidney complications Diabetes mellitus complication detail: with chronic kidney disease Chronic kidney disease stage: on chronic dialysis Qualified Code(s): E11.22 - Type 2 diabetes mellitus with diabetic chronic kidney disease; N18.6 - End stage renal disease; Z79.4 - acid maker (current) use of insulin; Z99.2 - Dependence on renal dialysis Code(s): E11.9 - Type 2 diabetes mellitus without complications Status: Acute Assessment and Plan: follow accuchecks on SSI Will continue to follow. Subjective Date/time seen: 12/28/20 12:22 Tolerating dialysis at the time of my visit (seen on HD at 12:15PM); has decided to proceed with right after discussion with Orthopedics regarding all of her treatment options; no apparent distress at this time; no events/issues overnight or earlier this AM. Exam Narrative: General: WD/WN female in NAD Heart: normal S1 and S2; no rub Lungs: clear to auscultation Abdomen: soft, nontender, nondistended, positive bowel sounds Extremities: no cyanosis or clubbing; no edema Skin: warm and dry; right foot dressings in place Objective Data Vital Signs Vital Signs: Vital Signs Temp Pulse Resp BP Pulse Ox 12/28/20 08:52 78 12/28/20 06:07 36.6 C 68 16 127/48 L 89 L 12/27/20 22:10 36.6 C 67 16 128/58 L 93 12/27/20 18:46 70 12/27/20 15:53 36.7 C 68 18 125/44 L 98 Intake/Output Intake/Output: Intake & Output 12/25/20 12/26/20 12/27/20 12/28/20 23:59 23:59 23:59 23:59 Intake Total 693 845 1371 240 Output Total 1950 200 Balance -8245 975 9947 240 Meds/Results Medications: Active Medications Generic Name Dose Route Start Last Admin Trade Name Freq PRN Reason Stop Dose Admin Hydrocodone Bitart/Acetaminophen 1 tab 12/24/20 00:20 12/28/20 00:43 Hydrocodone/Acetaminophen (*Crx) 5-325 Mg Tablet PO 1 tab Q6H PRN Administration Pain Rated 4-6 Allopurinol 100 mg 12/22/20 08:00 12/28/20 08:52 Allopurinol 100 Mg Tablet PO 100 mg DAILY@0800 MICHELL Administration Amlodipine Besylate 10 mg 12/22/20 09:00 12/28/20 08:51 Amlodipine Besylate 5 Mg Tablet PO 10 mg DAILY MICHELL Administration Apixaban 2.5 mg 12/22/20 09:00 12/28/20 08:52 Apixaban 2.5 Mg Tablet PO 2.5 mg Q12HR MICHELL Administration Atorvastatin Calcium 20 mg 12/22/20 09:00 12/28/20 08:52 Atorvastatin 20 Mg Tablet PO 20 mg DAILY MICHELL Administration Benzonatate 100 mg 12/24/20 17:30 12/26/20 09:03 Benzonatate 100 Mg Capsule PO 100 mg
[2020-12-28] MEDS: EPOETIN ALFA-EPBX 10,000 UNITS/ML VIAL 10000 UNITS IV PUSH (13:15)
--- NOTE | 2020-12-28 15:13 | PCOTNOTE ---
Attempted to see for OT treatment, pt. currently at dialysis. Will check back later, if time allows
[2020-12-28 17:28] LABS: Glucose Point of Care 105 mg/dl (65-105)
--- NOTE | 2020-12-28 18:50 | PC.NURSE ---
Patient does not want her dressing changed today, stated They can do it tomorrow, just leave it alone .
[2020-12-28] MEDS: INSULIN GLARGINE (*BKC) 100 UNITS/ML 8 UNITS SUB-Q (20:40)
[2020-12-28 20:49] LABS: Glucose Point of Care 190 mg/dl (65-105)
[2020-12-29 07:00] VITALS: BP 167/62; PULSE 72; RESP 18; TEMP 37.1; O2SAT 96
[2020-12-29 08:03] LABS: Glucose Point of Care 106 mg/dl (65-105)
[2020-12-29] MEDS: SACCHAROMYCES BOULARDII 250 MG CAPSULE PO ×2 (08:29→17:00)
[2020-12-29] MEDS: BENZONATATE 100 MG CAPSULE PO (08:29)
[2020-12-29] MEDS: APIXABAN 2.5 MG TABLET PO (08:29)
[2020-12-29] MEDS: amLODIPine BESYLATE 5 MG TABLET 10 MG PO (08:29)
[2020-12-29 08:30] VITALS: PULSE 70
[2020-12-29] MEDS: DOXYCYCLINE HYCLATE 100 MG TABLET PO ×2 (08:30→20:35)
[2020-12-29] MEDS: buPROPion HCL SR (12 HR) 150 MG TAB PO (08:30)
[2020-12-29] MEDS: allopurinoL 100 MG TABLET PO (08:30)
[2020-12-29] MEDS: ATORVASTATIN 20 MG TABLET PO (08:30)
[2020-12-29] MEDS: carvediloL 25 MG TABLET PO ×2 (08:30→16:59)
[2020-12-29] MEDS: FAMOTIDINE 20 MG TABLET PO (08:30)
[2020-12-29] MEDS: DOCUSATE SODIUM 100 MG CAPSULE PO ×3 (08:31→20:35)
[2020-12-29] MEDS: EUCERIN CREAM 120 GM JAR 1 APPLIC TOPICAL (08:31)
[2020-12-29] MEDS: LIDOCAINE 5% PATCH 1 PATCH TOPICAL (08:31)
[2020-12-29] MEDS: diphenhydrAMINE HCl CAP 25 MG CAPSULE PO ×2 (08:35→20:37)
--- NOTE | 2020-12-29 10:13 | PM.IMPN ---
Progress Note: A&P Additional Plan POD6 rt foot debridement for OM. Plan for Rt BKA with ortho. Hold AC & NPO as needed. Doxy for the time being. ID on consult, appreciate any additional recommendations. Will need AC for 1 wk rior to procedure - will hold today. Plan for d/c early tomorrow. ESRD, TTS HD schedule, Epogen per nephro for ACKD. DM2: continue 8 Lantus & 3-6 Novolog. Time Spent With Patient Time with patient: less than 15 minutes Subjective Date/time seen: 12/29/20 10:13 resting comfortably in bed not in any significant pain. Review of Systems Review of Systems: All systems reviewed & are unremarkable except as noted in HPI and below Exam Const: General: no acute distress Neck: Neck: no JVD Resp: Effort & Inspection: normal respiratory effort Auscultation: clear to auscultation bilaterally Cardio: Rate: regular rate Rhythm: regular rhythm GI: GI Palp: Yes Soft to palpation and No Tenderness to palpation present (GI) Objective Data Vital Signs Vital Signs: Vital Signs - 24 hr 12/28/20 12:06 12/28/20 12:15 12/28/20 13:00 Temperature 98.2 F Pulse Rate 64 65 65 Respiratory Rate 18 Blood Pressure 140/65 129/65 137/66 Pulse Oximetry 12/28/20 13:45 12/28/20 14:30 12/28/20 15:15 Temperature Pulse Rate 66 68 69 Respiratory Rate Blood Pressure 146/79 H 149/72 H 136/55 L Pulse Oximetry 12/28/20 15:45 12/28/20 16:08 12/28/20 16:37 Temperature 98.0 F Pulse Rate 71 70 70 Respiratory Rate 20 Blood Pressure 121/50 L 133/55 L Pulse Oximetry 12/28/20 20:55 12/28/20 23:00 12/29/20 07:00 Temperature 97.5 F L 98.8 F Pulse Rate 70 68 72 Respiratory Rate 20 18 18 Blood Pressure 160/84 H 167/62 H Pulse Oximetry 94 97 96 12/29/20 08:30 Temperature Pulse Rate 70 Respiratory Rate Blood Pressure Pulse Oximetry Intake/Output Intake/Output: Intake & Output 12/26/20 12/27/20 12/28/20 12/29/20 23:59 23:59 23:59 23:59 Intake Total 860 1360 360 890 Output Total 200 2500 Balance 860 1160 -2140 890 Meds/Results Medications: Active Medications Generic Name Dose Route Start Last Admin Trade Name Freq PRN Reason Stop Dose Admin Hydrocodone Bitart/Acetaminophen 1 tab 12/24/20 00:20 12/28/20 00:43 Hydrocodone/Acetaminophen (*Crx) 5-325 Mg Tablet PO 1 tab Q6H PRN Administration Pain Rated 4-6 Allopurinol 100 mg 12/22/20 08:00 12/29/20 08:30 Allopurinol 100 Mg Tablet PO 100 mg DAILY@0800 MICHELL Administration Amlodipine Besylate 10 mg 12/22/20 09:00 12/29/20 08:29 Amlodipine Besylate 5 Mg Tablet PO 10 mg DAILY MICHELL Administration Apixaban 2.5 mg 12/22/20 09:00 12/29/20 08:29 Apixaban 2.5 Mg Tablet PO 2.5 mg Q12HR MICHELL Administration Atorvastatin Calcium 20 mg 12/22/20 09:00 12/29/20 08:30 Atorvastatin 20 Mg Tablet PO 20 mg DAILY MICHELL Administration Benzonatate 100 mg 12/24/20 17:30 12/29/20 08:29 Benzonatate 100 Mg Capsule PO 100 mg TID PRN Administration Cough Bupropion HCl 150 mg 12/22/20 09:00 12/29/20 08:30 Bupropion Hcl Sr (12 Hr) 150 Mg Tab PO 150 mg DAILY MICHELL Administration Carvedilol 25 mg 12/22/20 08:00 12/29/20 08:30 Carvedilol 25 Mg Tablet PO 25 mg BIDWM MICHELL Administration Dextrose 12.5 gm 12/21/20 20:38 Dextrose 50% 25 Gm/50 Ml Syringe IV PUSH PRN PRN Hypoglycemia Protocol Diphenhydramine HCl 25 mg 12/24/20 08:14 12/29/20 08:35 Diphenhydramine Hcl Cap 25 Mg Capsule PO 25 mg Q6H PRN Administration Itching Docusate Sodium 100 mg 12/22/20 21:00 12/28/20 20:41 Docusate Sodium 100 Mg Capsule PO 100 mg HS MICHELL Administration Docusate Sodium 100 mg 12/23/20 17:00 12/29/20 08:31 Docusate Sodium 100 Mg Capsule PO 100 mg BID MICHELL Administration Doxycycline Hyclate 100 mg 12/24/20 21:00 12/29/20 08:30 Doxycycline Hyclate 100 Mg Tablet PO 100 mg Q12HR MICHELL Administration Epoetin A
--- NOTE | 2020-12-29 10:33 | PCNFU ---
Nutrition Follow-Up Complete: Increased protein needs as related to wounds as evidenced by unstageable pressure ulcer. Goal: Meet estimated nutritional needs Patient is progressing towards goal. No new goal at this time. Pt current nutrition is a diabetic consistent carbohydrate diet with one pack of Doug BID for wound healing. Last recorded weight is 91.9 kg. Recommend weighing pt. once prior to discharge to ensure no significant weight loss. Bowel Motility: + BM 12/27/2020 Labs Reviewed: POC Capillary Glucose: 106 Meds Noted: Albutein, Zyloprim, Norvasc, Eliquis, Lipitor, Coreg, Wellbutrin-Sr, Colace capsule, Retacrit, Lidocaine, Lantus, Silvergel Additional Notes: Checked in with patient. Patient reported having a pretty good appetite consuming on average 73% of meals ordered. No real complaints regarding the food or Doug supplement. Pt. has an unstageable pressure ulcer to the right heel. No nutritional questions or concerns from patient when asked. Will monitor every 5 days.
[2020-12-29] MEDS: HYDROcodone/acetaminophen (*CRX) 5-325 MG TABLET 1 TAB PO ×2 (12:05→22:16)
[2020-12-29 12:22] LABS: Glucose Point of Care 137 mg/dl (65-105)
--- NOTE | 2020-12-29 13:14 | PM.PNORT ---
Progress Note: A&P Assessment and Plan (1) Osteomyelitis of foot, right, acute: Code(s): M86.171 - Other acute osteomyelitis, right ankle and foot Status: Acute Assessment and Plan: Postop day 6 right foot debridement for osteomyelitis. Patient has decided on below-knee amputation right leg to treat the deformity and infection. Currently on Eliquis. Will need 1 week off of anticoagulation prior to proceeding with surgery. (2) Diabetic ulcer of right foot: Qualifiers: Diabetic foot ulcer location: midfoot Diabetes mellitus type: type 2 Non-pressure ulcer stage: with necrosis of bone Qualified Code(s): E11.621 - Type 2 diabetes mellitus with foot ulcer; L97.414 - Non-pressure chronic ulcer of right heel and midfoot with necrosis of bone Code(s): E11.621 - Type 2 diabetes mellitus with foot ulcer; L97.519 - Non-pressure chronic ulcer of other part of right foot with unspecified severity Status: Acute (3) Diabetes: Qualifiers: Diabetes mellitus type: type 2 Diabetes mellitus intermediate designer insulin use: with alf use Diabetes mellitus complication status: with kidney complications Diabetes mellitus complication detail: with chronic kidney disease Chronic kidney disease stage: on chronic dialysis Qualified Code(s): E11.22 - Type 2 diabetes mellitus with diabetic chronic kidney disease; N18.6 - End stage renal disease; Z79.4 - watermelon inspector (current) use of insulin; Z99.2 - Dependence on renal dialysis Code(s): E11.9 - Type 2 diabetes mellitus without complications Status: Acute (4) Neuropathy due to type 2 diabetes mellitus: Code(s): E11.40 - Type 2 diabetes mellitus with diabetic neuropathy, unspecified Status: Acute (5) End-stage renal disease on hemodialysis: Code(s): N18.6 - End stage renal disease; Z99.2 - Dependence on renal dialysis Status: Chronic (6) Venous stasis dermatitis of right lower extremity: Code(s): I87.2 - Venous insufficiency (chronic) (peripheral) Status: Acute Assessment and Plan: venous stasis chronic changes to bilateral lower extremities. Right lower extremity at the mid leg. Incision for amputation level for below-knee amputation demonstrated to the patient. Potential for wound healing problems and infection reviewed. Patient verbalizes understanding. Subjective Subjective Date/Time Seen: 12/29/20 13:14 Post Op day: 6 Principal diagnosis: Right foot osteomyelitis Interval history: patient has decided on right below-knee amputation. Currently anticoagulated. Exam Const: General: comfortable and no acute distress Resp: Effort & Inspection: normal respiratory effort GI: Inspection: non-distended GI Palp: Yes Soft to palpation and No Tenderness to palpation present (GI) Skin: Wounds: wounds noted (Dressing right heel ) Neuro: Cognition (Neuro): normal cognition (confusion to situation ) Extrem: Left lower extremity: ankle (no purposeful dorsiflexion/plantarflexion. ) and foot (Moves toes. Minimal sensation at baseline. ) Other: Large wound on the calcaneus. Swelling toes noted. No significant erythema. Minimal sensation at baseline. Psych: Mental Status: mental status grossly normal Thought content: Yes Normal thought content present Objective Data Vital Signs Vital Signs: Vital Signs - 24 hr 12/28/20 13:45 12/28/20 14:30 12/28/20 15:15 Temperature Pulse Rate 66 68 69 Respiratory Rate Blood Pressure 146/79 H 149/72 H 136/55 L Pulse Oximetry 12/28/20 15:45 12/28/20 16:08 12/28/20 16:37 Temperature 98.0 F Pulse Rate 71 70 70 Respiratory Rate 20 Blood Pressure 121/50 L 133/55 L Pulse Oximetry 12/28/20 20:55 12/28/20 23:00 12/29/20 07:00 Temperature 97.5 F L 98.8 F Pulse Rate 70 68 72 Respiratory Rate 20 18 18 Blood Pressure 160/84 H 167/62 H Pulse Oximetry 94 97 96 12/29/20 08:30 Temperature Pulse Rate 70 Respiratory Rate Blo
[2020-12-29 15:00] VITALS: BP 119/51; PULSE 68; RESP 20; TEMP 36.2; O2SAT 93
[2020-12-29] MEDS: SILVERGEL (ELTA) 45 ML 1 APPLIC TOPICAL (15:04)
[2020-12-29 16:59] VITALS: PULSE 67
[2020-12-29 17:00] LABS: Glucose Point of Care 148 mg/dl (65-105)
--- NOTE | 2020-12-29 17:19 | P.PNNP_ITS ---
Progress Note: A&P Assessment and Plan (1) End stage renal disease: Code(s): N18.6 - End stage renal disease Status: Chronic Assessment and Plan: * HD tomorrow and continue T/T/S schedule while hospitalized * follow electrolytes, volume status, and clearance (2) Osteomyelitis: Qualifiers: Laterality: right Osteomyelitis location: foot Osteomyelitis type: ot her Qualified Code(s): M86.8X7 - Other osteomyelitis, ankle and foot Code(s): M86.9 - Osteomyelitis, unspecified Status: Acute Assessment and Plan: * as noted by all evidence to date * plan right BKA for definitive treatment/therapy at a later date * Infectious Disease recommendations noted * Orthopedics following (3) Anemia: Code(s): D64.9 - Anemia, unspecified Status: Chronic Assessment and Plan: * due to ESRD and acute illness * Epogen with HD * follow trend of H/H (4) Hypertension: Onset Date: Unknown Qualifiers: Hypertension type: essential hypertension Qualified Code(s): I10 - Essential (primary) hypertension Code(s): I10 - Essential (primary) hypertension Status: Chronic Assessment and Plan: * reasonable control at this time * follow trend of hemodynamics (5) Diabetes: Qualifiers: Diabetes mellitus type: type 2 Diabetes mellitus firer helper insulin use: with firer helper use Diabetes mellitus complication status: with kidney complications Diabetes mellitus complication detail: with chronic kidney disease Chronic kidney disease stage: on chronic dialysis Qualified Code(s): E11.22 - Type 2 diabetes mellitus with diabetic chronic kidney disease; N18.6 - End stage renal disease; Z79.4 - pcts (current) use of insulin; Z99.2 - Dependence on renal dialysis Code(s): E11.9 - Type 2 diabetes mellitus without complications Status: Acute Assessment and Plan: * follow accuchecks * on SSI Will continue to follow. Subjective Date/time seen: 12/29/20 17:19 Tolerated dialysis treatment yesterday without any issues or problems; no surgery at this time as needs to be of anticoagulation for a week prior to any intervention; no issues/events overnight or earlier this AM. Exam Narrative: General: WD/WN female in NAD Heart: normal S1 and S2; no rub Lungs: clear to auscultation Abdomen: soft, nontender, nondistended, positive bowel sounds Extremities: no cyanosis or clubbing; no edema Skin: right foot dressings noted Objective Data Vital Signs Vital Signs: Vital Signs Temp Pulse Resp BP Pulse Ox 12/29/20 16:59 67 12/29/20 15:00 36.2 C L 68 20 119/51 L 93 12/29/20 08:30 70 12/29/20 07:00 37.1 C 72 18 167/62 H 96 12/28/20 23:00 36.4 C L 68 18 160/84 H 97 12/28/20 20:55 70 20 94 Intake/Output Intake/Output: Intake & Output 12/26/20 12/27/20 12/28/20 12/29/20 23:59 23:59 23:59 23:59 Intake Total 860 7916 799 6087 Output Total 200 2500 Balance 860 1160 -2140 1370 Meds/Results Medications: Active Medications Generic Name Dose Route Start Last Admin Trade Name Freq PRN Reason Stop Dose Admin Hydrocodone Bitart/Acetaminophen 1 tab 12/24/20 00:20 12/29/20 12:05 Hydrocodone/Acetaminophen (*Crx) 5-3
--- NOTE | 2020-12-29 17:19 | PM.PNNEP ---
Progress Note: A&P Assessment and Plan (1) End stage renal disease: Code(s): N18.6 - End stage renal disease Status: Chronic Assessment and Plan: HD tomorrow and continue T/T/S schedule while hospitalized follow electrolytes, volume status, and clearance (2) Osteomyelitis: Qualifiers: Laterality: right Osteomyelitis location: foot Osteomyelitis type: other Qualified Code(s): M86.8X7 - Other osteomyelitis, ankle and foot Code(s): M86.9 - Osteomyelitis, unspecified Status: Acute Assessment and Plan: as noted by all evidence to date plan right BKA for definitive treatment/therapy at a later date Infectious Disease recommendations noted Orthopedics following (3) Anemia: Code(s): D64.9 - Anemia, unspecified Status: Chronic Assessment and Plan: due to ESRD and acute illness Epogen with HD follow trend of H/H (4) Hypertension: Onset Date: Unknown Qualifiers: Hypertension type: essential hypertension Qualified Code(s): I10 - Essential (primary) hypertension Code(s): I10 - Essential (primary) hypertension Status: Chronic Assessment and Plan: reasonable control at this time follow trend of hemodynamics (5) Diabetes: Qualifiers: Diabetes mellitus type: type 2 Diabetes mellitus tank terminal gauger insulin use: with tank terminal gauger use Diabetes mellitus complication status: with kidney complications Diabetes mellitus complication detail: with chronic kidney disease Chronic kidney disease stage: on chronic dialysis Qualified Code(s): E11.22 - Type 2 diabetes mellitus with diabetic chronic kidney disease; N18.6 - End stage renal disease; Z79.4 - tank terminal gauger (current) use of insulin; Z99.2 - Dependence on renal dialysis Code(s): E11.9 - Type 2 diabetes mellitus without complications Status: Acute Assessment and Plan: follow accuchecks on SSI Will continue to follow. Subjective Date/time seen: 12/29/20 17:19 Tolerated dialysis treatment yesterday without any issues or problems; no surgery at this time as needs to be of anticoagulation for a week prior to any intervention; no issues/events overnight or earlier this AM. Exam Narrative: General: WD/WN female in NAD Heart: normal S1 and S2; no rub Lungs: clear to auscultation Abdomen: soft, nontender, nondistended, positive bowel sounds Extremities: no cyanosis or clubbing; no edema Skin: right foot dressings noted Objective Data Vital Signs Vital Signs: Vital Signs Temp Pulse Resp BP Pulse Ox 12/29/20 16:59 67 12/29/20 15:00 36.2 C L 68 20 119/51 L 93 12/29/20 08:30 70 12/29/20 07:00 37.1 C 72 18 167/62 H 96 12/28/20 23:00 36.4 C L 68 18 160/84 H 97 12/28/20 20:55 70 20 94 Intake/Output Intake/Output: Intake & Output 12/26/20 12/27/20 12/28/20 12/29/20 23:59 23:59 23:59 23:59 Intake Total 860 2121 133 1999 Output Total 200 2500 Balance 860 1160 -2140 1370 Meds/Results Medications: Active Medications Generic Name Dose Route Start Last Admin Trade Name Freq PRN Reason Stop Dose Admin Hydrocodone Bitart/Acetaminophen 1 tab 12/24/20 00:20 12/29/20 12:05 Hydrocodone/Acetaminophen (*Crx) 5-325 Mg Tablet PO 1 tab Q6H PRN Administration Pain Rated 4-6 Allopurinol 100 mg 12/22/20 08:00 12/29/20 08:30 Allopurinol 100 Mg Tablet PO 100 mg DAILY@0800 MICHELL Administration Amlodipine Besylate 10 mg 12/22/20 09:00 12/29/20 08:29 Amlodipine Besylate 5 Mg Tablet PO 10 mg DAILY MICHELL Administration Atorvastatin Calcium 20 mg 12/22/20 09:00 12/29/20 08:30 Atorvastatin 20 Mg Tablet PO 20 mg DAILY MICHELL Administration Benzonatate 100 mg 12/24/20 17:30 12/29/20 08:29 Benzonatate 100 Mg Capsule PO 100 mg TID PRN Administration Cough Bupropion HCl 150 mg 12/22/20 09:00 12/29/20 08:30 Bupropion Hcl Sr (12 Hr) 150 Mg Ta
[2020-12-29] MEDS: INSULIN GLARGINE (*BKC) 100 UNITS/ML 8 UNITS SUB-Q (20:33)
[2020-12-29 23:00] VITALS: BP 107/46; PULSE 66; RESP 16; TEMP 36.5; O2SAT 94
[2020-12-30] VITALS (20 sets, daily range): BP systolic 114–150; BP diastolic 55–73; PULSE 68–74; RESP 16–18; TEMP 13.8–37; O2SAT 94–95
[2020-12-30 02:28] LABS: Glucose Point of Care 172 mg/dl (65-105)
[2020-12-30 06:27] LABS: Basophils Absolute Auto 0.1 K/mm3 (0.0-0.1); Basophils Percent Auto 0.6 % (0.2-1.2); Eosinophils Absolute Auto 0.7 K/mm3 (0-0.3); Eosinophils Percent Auto 6.4 % (0-4.4); Hematocrit 32.4 % (37.0-47.0); Hemoglobin 9.7 g/dL (12.0-15.0); Immature Granulocyte Absolute 0.05 K/mm3 (0.00-0.031); Immature Granulocyte Percent A 0.5 % (0-0.5); Lymphocytes Absolute Auto 1.05 K/mm3 (0.9-3.2); Mean Corpuscular HGB Conc 29.9 g/dl (32-36); Mean Corpuscular Hemoglobin 32.6 pg (26-34); Mean Corpuscular Volume 108.7 fl (80-100); Mean Platelet Volume 10.8 fl (7.4-10.4); Monocytes Absolute Auto 0.7 K/mm3 (0.1-0.6); Monocytes Percent Auto 6.2 % (2.6-8.5); Neutrophils Percent Auto 76.3 % (45.5-73.1); Platelet Count Result 278 k/mm3 (150-375); Red Blood Count 2.98 M/mm3 (4.2-5.4); Red Cell Distribution Width 14.9 % (11.5-14.5); White Blood Count 10.5 K/mm3 (4.5-10.0)
[2020-12-30 06:43] LABS: Alanine Aminotransferase 9 U/L (4-35); Albumin Level 3.2 g/dL (3.5-5.1); Alkaline Phosphatase 198 U/L (38-126); Anion Gap 9 mmol/L (8-16); Aspartate Amino Transferase 20 U/L (14-36); Bilirubin,Total 0.9 mg/dL (0.2-1.3); Blood Urea Nitrogen 39 mg/dL (7-17); Calcium 9.1 mg/dL (8.4-10.2); Carbon Dioxide 26 mmol/L (22-30); Chloride 99 mmol/L (98-107); Estimated CRCL calculation 11 ml/min; Estimated Glomerular Filt Rate 9; Glucose 88 mg/dL (65-110); Potassium 4.6 mmol/L (3.4-5.0); Sodium 134 mmol/L (137-145)
[2020-12-30 07:23] LABS: Anisocytosis 1+ (NORMAL); Crenated RBC 1+ (NORMAL); Ovalocytes 1+ (NORMAL); Platelet Estimate Adequate (Adequate)
[2020-12-30 08:17] LABS: Glucose Point of Care 75 mg/dl (65-105)
--- NOTE | 2020-12-30 09:45 | P.PNIM_ITS ---
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 She underwent excisional debridement performed on 10/28/[address] Varma. Presented with worsening over the past 2 days. * Foot x-ray performed on 12/21 again showed osteomyelitis involving right 2nd through 5th metatarsal bases, cuboid and lateral cuneiform bones as well as deep plantar wound * Appreciate orthopedic surgery consultation * She is now s/p excisional debridement of right diabetic foot ulcer and excision of osteomyelitis of right calcaneus performed today by Dr. Varma. * Amputation has been discussed, however she has refused * Continue IV Primaxin and vancomycin * Appreciate wound care consultation and recommendations * Supportive care. Analgesics available as needed. Elevate the foot. * Wound cultures and blood cultures are pending. Id consulted recommended BKA She is considering BKA awaiting timing and recommendation from Dr. Lazar antibiotics switched to doxycycline (2) Osteomyelitis of foot, right, acute: Code(s): M86.171 - Other acute osteomyelitis, right ankle and foot Status: Acute Assessment and Plan: Plan as above (3) End-stage renal disease on hemodialysis: Code(s): N18.6 - End stage renal disease; Z99.2 - Dependence on renal dialysis Status: Chronic Assessment and Plan: Her open hearth worker is Dr. Rodríguez at [place]. Maintained on hemodialysis Sunday//Sunday * Nephrology has been consulted for management of dialysis. Dialysis as per schedule per Nephrology (4) Hypokalemia: Code(s): E87.6 - Hypokalemia Status: Acute Assessment and Plan: * Cautious potassium supplementation given ESRD * Magnesium is 2.1 * Monitor BMP daily (5) Hyponatremia: Code(s): E87.1 - Hypo-osmolality and hyponatremia Status: Chronic Assessment and Plan: Hyponatremia appears chronic on review of prior labs. * No further workup at this time. Discussed with Dr. Garcia, open hearth worker, and expect that some of this should correct with dialysis, however unfortunately will not be able to be done today as discussed above. * Continue to monitor BMP closely (6) Insulin dependent type 2 diabetes mellitus: Code(s): E11.9 - Type 2 diabetes mellitus without complications; Z79.4 - terminal press operator (current) use of insulin Status: Chronic Assessment and Plan: A1c is 6.1. Blood sugars well controlled today. * Continue Accu-Cheks, sliding scale insulin, hypoglycemic protocol * On Lantus 80 units q.h.s. * Monitor blood sugar trends and adjust as needed (7) Hypertension: Onset Date: Unknown Qualifiers: Hypertension type: essential hypertension Qualified Code(s): I10 - Essential (primary) hypertension Code(s): I10 - Essential (primary) hypertension Status: Chronic Assessment and Plan: Blood pressure reviewed and has been generally well controlled, a little soft postoperatively. Last BP 107/41. * Continue home
--- NOTE | 2020-12-30 09:45 | PM.IMPN ---
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 She underwent excisional debridement performed on 10/28/[address] Varma. Presented with worsening over the past 2 days. Foot x-ray performed on 12/21 again showed osteomyelitis involving right 2nd through 5th metatarsal bases, cuboid and lateral cuneiform bones as well as deep plantar wound Appreciate orthopedic surgery consultation She is now s/p excisional debridement of right diabetic foot ulcer and excision of osteomyelitis of right calcaneus performed today by Dr. Varma. Amputation has been discussed, however she has refused Continue IV Primaxin and vancomycin Appreciate wound care consultation and recommendations Supportive care. Analgesics available as needed. Elevate the foot. Wound cultures and blood cultures are pending. Id consulted recommended BKA She is considering BKA awaiting timing and recommendation from Dr. Lazar antibiotics switched to doxycycline (2) Osteomyelitis of foot, right, acute: Code(s): M86.171 - Other acute osteomyelitis, right ankle and foot Status: Acute Assessment and Plan: Plan as above (3) End-stage renal disease on hemodialysis: Code(s): N18.6 - End stage renal disease; Z99.2 - Dependence on renal dialysis Status: Chronic Assessment and Plan: Her business leader is Dr. Rodríguez at [place]. Maintained on hemodialysis Sunday//Sunday Nephrology has been consulted for management of dialysis. Dialysis as per schedule per Nephrology (4) Hypokalemia: Code(s): E87.6 - Hypokalemia Status: Acute Assessment and Plan: Cautious potassium supplementation given ESRD Magnesium is 2.1 Monitor BMP daily (5) Hyponatremia: Code(s): E87.1 - Hypo-osmolality and hyponatremia Status: Chronic Assessment and Plan: Hyponatremia appears chronic on review of prior labs. No further workup at this time. Discussed with Dr. Garcia, business leader, and expect that some of this should correct with dialysis, however unfortunately will not be able to be done today as discussed above. Continue to monitor BMP closely (6) Insulin dependent type 2 diabetes mellitus: Code(s): E11.9 - Type 2 diabetes mellitus without complications; Z79.4 - 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 of insulin Status: Chronic Assessment and Plan: A1c is 6.1. Blood sugars well controlled today. Continue Accu-Cheks, sliding scale insulin, hypoglycemic protocol On Lantus 80 units q.h.s. Monitor blood sugar trends and adjust as needed (7) Hypertension: Onset Date: Unknown Qualifiers: Hypertension type: essential hypertension Qualified Code(s): I10 - Essential (primary) hypertension Code(s): I10 - Essential (primary) hypertension Status: Chronic Assessment and Plan: Blood pressure reviewed and has been generally well controlled, a little soft postoperatively. Last BP 107/41. Continue home antihypertensives. Hold if BP decreases. Monitor blood pressure trends (8) Chronic anemia: Code(s): D64.9 - Anemia, unspecified Status: Acute Assessment and Plan: Hemoglobin hematocrit consistent with baseline Continue Retacrit Monitor H&H closely (9) Dysuria: Code(s): R30.0 - Dysuria Status: Acute Assessment and Plan: check urinalysis Additional Plan
--- NOTE | 2020-12-30 12:36 | P.PNNP_ITS ---
Progress Note: A&P Assessment and Plan (1) End stage renal disease: Code(s): N18.6 - End stage renal disease Status: Chronic Assessment and Plan: * HD today and continue T/T/S schedule while hospitalized * follow electrolytes, volume status, and clearance (2) Osteomyelitis: Qualifiers: Laterality: right Osteomyelitis location: foot Osteomyelitis type: other Qualified Code(s): M86.8X7 - Other osteomyelitis, ankle and foot Code(s): M86.9 - Osteomyelitis, unspecified Status: Acute Assessment and Plan: * as noted by all evidence to date * plan right BKA for definitive treatment/therapy at a later date * Infectious Disease recommendations noted * Orthopedics following (3) Anemia: Code(s): D64.9 - Anemia, unspecified Status: Chronic Assessment and Plan: * due to ESRD and acute illness * Epogen with HD * follow trend of H/H (4) Hypertension: Onset Date: Unknown Qualifiers: Hypertension type: essential hypertension Qualified Code(s): I10 - Essential (primary) hypertension Code(s): I10 - Essential (primary) hypertension Status: Chronic Assessment and Plan: * reasonable control at this time * follow trend of hemodynamics (5) Diabetes: Qualifiers: Chronic kidney disease stage: on chronic dialysis Diabetes mellitus complication detail: with chronic kidney disease Diabetes mellitus complication status: with kidney complications Diabetes mellitus residential insulin use: with long term acute care registered nurse use Diabetes mellitus type: type 2 Qualified Code(s): E11.22 - Type 2 diabetes mellitus with diabetic chronic kidney disease; N18.6 - End stage renal disease; Z79.4 - assisted (current) use of insulin; Z99.2 - Dependence on renal dialysis Code(s): E11.9 - Type 2 diabetes mellitus without complications Status: Acute Assessment and Plan: * follow accuchecks * on SSI Will continue to follow. Subjective Date/time seen: 12/30/20 12:36 Tolerating dialysis treatment at the shanell of my visit (seen on HD at 12:20PM); no apparent distress noted; no issues/events overnight or earlier this morning; pain control satisfactory. Exam Narrative: General: WD/WN female in NAD Heart: normal S1 and S2; no rub Lungs: clear to auscultation Abdomen: soft, nontender, nondistended, positive bowel sounds Extremities: no cyanosis or clubbing; no edema Skin: right foot dressings in place Objective Data Vital Signs Vital Signs: Vital Signs Temp Pulse Resp BP Pulse Ox 12/30/20 06:00 36.7 C 68 16 129/61 94 12/29/20 23:00 36.5 C 66 16 107/46 L 94 12/29/20 16:59 67 12/29/20 15:00 36.2 C L 68 20 119/51 L 93 Intake/Output Intake/Output: Intake & Output 12/27/20 12/28/20 12/29/20 12/30/20 23:59 23:59 23:59 23:59 Intake Total 1816 150 8608 960 Output Total 200 2500 Balance 1160 -2140 1370 960 Meds/Results Medications: Active Medications Generic Name Dose Route Start Last Admin Trade Name Freq PRN Reason Stop Dose Admin Hydrocodone Bitart/Acetaminophen 1 tab 12/24/20 00:20 12/29/20 22:16 Hydrocodone/Acetaminophen (*Crx) 5-325 Mg Tablet PO 1 tab Q6H PRN Administration Pain Rated 4-6 [place]
--- NOTE | 2020-12-30 12:36 | PM.PNNEP ---
Progress Note: A&P Assessment and Plan (1) End stage renal disease: Code(s): N18.6 - End stage renal disease Status: Chronic Assessment and Plan: HD today and continue T/T/S schedule while hospitalized follow electrolytes, volume status, and clearance (2) Osteomyelitis: Qualifiers: Laterality: right Osteomyelitis location: foot Osteomyelitis type: other Qualified Code(s): M86.8X7 - Other osteomyelitis, ankle and foot Code(s): M86.9 - Osteomyelitis, unspecified Status: Acute Assessment and Plan: as noted by all evidence to date plan right BKA for definitive treatment/therapy at a later date Infectious Disease recommendations noted Orthopedics following (3) Anemia: Code(s): D64.9 - Anemia, unspecified Status: Chronic Assessment and Plan: due to ESRD and acute illness Epogen with HD follow trend of H/H (4) Hypertension: Onset Date: Unknown Qualifiers: Hypertension type: essential hypertension Qualified Code(s): I10 - Essential (primary) hypertension Code(s): I10 - Essential (primary) hypertension Status: Chronic Assessment and Plan: reasonable control at this time follow trend of hemodynamics (5) Diabetes: Qualifiers: Chronic kidney disease stage: on chronic dialysis Diabetes mellitus complication detail: with chronic kidney disease Diabetes mellitus complication status: with kidney complications Diabetes mellitus terminologist insulin use: with terminologist use Diabetes mellitus type: type 2 Qualified Code(s): E11.22 - Type 2 diabetes mellitus with diabetic chronic kidney disease; N18.6 - End stage renal disease; Z79.4 - terminologist (current) use of insulin; Z99.2 - Dependence on renal dialysis Code(s): E11.9 - Type 2 diabetes mellitus without complications Status: Acute Assessment and Plan: follow accuchecks on SSI Will continue to follow. Subjective Date/time seen: 12/30/20 12:36 Tolerating dialysis treatment at the shanell of my visit (seen on HD at 12:20PM); no apparent distress noted; no issues/events overnight or earlier this morning; pain control satisfactory. Exam Narrative: General: WD/WN female in NAD Heart: normal S1 and S2; no rub Lungs: clear to auscultation Abdomen: soft, nontender, nondistended, positive bowel sounds Extremities: no cyanosis or clubbing; no edema Skin: right foot dressings in place Objective Data Vital Signs Vital Signs: Vital Signs Temp Pulse Resp BP Pulse Ox 12/30/20 06:00 36.7 C 68 16 129/61 94 12/29/20 23:00 36.5 C 66 16 107/46 L 94 12/29/20 16:59 67 12/29/20 15:00 36.2 C L 68 20 119/51 L 93 Intake/Output Intake/Output: Intake & Output 12/27/20 12/28/20 12/29/20 12/30/20 23:59 23:59 23:59 23:59 Intake Total 6000 716 4103 960 Output Total 200 2500 Balance 1160 -2140 1370 960 Meds/Results Medications: Active Medications Generic Name Dose Route Start Last Admin Trade Name Freq PRN Reason Stop Dose Admin Hydrocodone Bitart/Acetaminophen 1 tab 12/24/20 00:20 12/29/20 22:16 Hydrocodone/Acetaminophen (*Crx) 5-325 Mg Tablet PO 1 tab Q6H PRN Administration Pain Rated 4-6 Allopurinol 100 mg 12/22/20 08:00 12/29/20 08:30 Allopurinol 100 Mg Tablet PO 100 mg DAILY@0800 MICHELL Administration Amlodipine Besylate 10 mg 12/22/20 09:00 12/30/20 11:33 Amlodipine Besylate 5 Mg Tablet PO Not Given DAILY MICHELL Atorvastatin Calcium 20 mg 12/22/20 09:00 12/30/20 11:32 Atorvastatin 20 Mg Tablet PO Not Given DAILY MICHELL Benzonatate 100 mg 12/24/20 17:30 12/29/20 08:29 Benzonatate 100 Mg Capsule PO 100 mg TID PRN Administration Cough Bupropion HCl 150 mg 12/22/20 09:00 12/30/20 11:33 Bupropion Hcl Sr (12 Hr) 150 Mg Tab PO Not Given DAILY MICHELL Carvedilol 25 mg 12/22/20 08:00 12/30/20 11:31 Carvedilol 25 Mg Tablet
--- NOTE | 2020-12-30 12:58 | PCOTNOTE ---
Attempted to see patient this pm, however patient off floor for dialysis.
--- NOTE | 2020-12-30 13:19 | PM.PNORT ---
Progress Note: A&P Assessment and Plan (1) Osteomyelitis of foot, right, acute: Code(s): M86.171 - Other acute osteomyelitis, right ankle and foot Status: Acute Assessment and Plan: POD #7: right foot debridement for osteomyelitis. Patient has decided on a BKA. Unable to proceed at this time due to anticoagulation. Anticoagulation stopped on 12/29. Plan for surgery next . Scheduled. Discharge planned to SNF today. Will return on for surgery. Continue daily dressing changes in the interim. 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: with senior living use Diabetes mellitus complication status: with kidney complications Diabetes mellitus complication detail: with chronic kidney disease Chronic kidney disease stage: on chronic dialysis Qualified Code(s): E11.22 - Type 2 diabetes mellitus with diabetic chronic kidney disease; N18.6 - End stage renal disease; 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.4 - 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 of insulin; Z99.2 - Dependence on renal dialysis Code(s): E11.9 - Type 2 diabetes mellitus without complications Status: Acute (4) Neuropathy due to type 2 diabetes mellitus: Code(s): E11.40 - Type 2 diabetes mellitus with diabetic neuropathy, unspecified Status: Acute (5) End-stage renal disease on hemodialysis: Code(s): N18.6 - End stage renal disease; Z99.2 - Dependence on renal dialysis Status: Chronic (6) Venous stasis dermatitis of right lower extremity: Code(s): I87.2 - Venous insufficiency (chronic) (peripheral) Status: Acute Assessment and Plan: venous stasis chronic changes to bilateral lower extremities. Right lower extremity at the mid leg. Incision for amputation level for below-knee amputation demonstrated to the patient. Potential for wound healing problems and infection reviewed. Patient verbalizes understanding. Subjective Subjective Date/Time Seen: 12/30/20 13:19 Principal diagnosis: 7 Interval history: POD #7 Unable to proceed with BKA at this time due to anticoagulation. Need to have anticoagulation held x7 days. Plan to return to OR on of next week. No new concerns today. Currently in HD. C/o itchy neck Review of Systems Constitutional: Constitutional: Reports no additional constitutional complaints, Denies chills, Denies fatigue, Denies fever(s), Denies headache(s) and Denies weakness Eyes: Eyes: Denies change in vision ENT: Reports Normal hearing present and Denies headache(s) Cardiovascular: Cardiovascular: Denies chest pain, Reports pedal edema and Reports edema Respiratory: Respiratory: Denies cough, Denies dyspnea and Denies wheezing Gastrointestinal: Gastrointestinal: Denies constipation, Denies diarrhea, Denies nausea and Denies vomiting Genitourinary: Genitourinary: Reports no additional female genitourinary complaints Musculoskeletal: Musculoskeletal: Reports as per HPI, Reports numbness, Reports tingling and Reports other (decreased sensation b/l LE ) Integumentary/Breasts: Skin/Breast: Reports as per HPI Neurologic: Reports as per HPI, Reports Normal hearing present and Denies headache(s) Psychiatric: Psychiatric: Reports no additional psychiatric complaints Endocrine: Endocrine: Reports no additional endocrine complaints and Denies fatigue Hematologic/Lymphatic: Hematologic/Lymphatic: Reports
--- NOTE | 2020-12-30 13:21 | PM.DS ---
DS: Admitting Diagnosis Discharge Date December 30 2020 Admitting Diagnosis osteomyelitis of right foot DS: Discharge Diagnosis Discharge Diagnosis (1) Osteomyelitis: Qualifiers: Laterality: right Osteomyelitis location: foot Osteomyelitis type: other Qualified Code(s): M86.8X7 - Other osteomyelitis, ankle and foot Code(s): M86.9 - Osteomyelitis, unspecified Status: Acute DS: Summary Hospital Course Reason for hospitalization: osteomyelitis Hospital Course: Patient is a 70-year-old lady with end-stage renal disease on hemodialysis, and insulin-dependent diabetes, hypertension, chronic anemia and Osteo myelitis presenting to the emergency room from [facility] for worsening wound of right foot on December 21. December 23, underwent excisional debridement of right diabetic foot ulcer and excision of right calcaneus. She has previously been followed by the wound clinic and wound VAC was removed approximately 3 weeks ago. She initially was a post amputation, however a few days prior to discharge changed her mind, after was explained to her that this would be the best long-term solution. She will require 1 week off of anticoagulation, and as such is being sent back to [place], and will return in 1 week to have procedure done. In the meantime, we will continue doxycycline b.i.d., which was recommended by Infectious Disease Service. Hemodialysis also to continue per schedule. Multiple chronic medical problems including type 2 diabetes, hypertension. Management for these conditions not changed while she was admitted. Discussed case with egg caser, and [facility] is aware that she must come back and will arrange for ambulance on the date the operation. Dialysis is also been arranged, and her schedule will be continued at dialysis center. Discussed with her holding anticoagulation, and also put this in the discharge paperwork. Status at Discharge Functional status at discharge: wheelchair bound Time Spent with Patient Time attestation: Total time spent providing and/or coordinating discharge services: Time spent: Less than 30 minutes Exam Const: General: no acute distress Neck: Neck: no JVD Resp: Effort & Inspection: normal respiratory effort Auscultation: clear to auscultation bilaterally Cardio: Rate: regular rate Rhythm: regular rhythm GI: GI Palp: Yes Soft to palpation and No Tenderness to palpation present (GI) DS: Data Data Completed and Pending Labs on day of discharge: Labs from last 24 hours 12/30/20 12/30/20 12/30/20 08:09 06:09 06:09 WBC 10.5 H RBC 2.98 L Hgb 9.7 L Hct 32.4 L MCV 108.7 H MCH 32.6 MCHC 29.9 L RDW 14.9 H Plt Count 278 MPV 10.8 H Immature Gran % (Auto) 0.5 Neut % (Auto) 76.3 H Lymph % (Auto) 10.0 L Reynolds % (Auto) 6.2 Eos % (Auto) 6.4 H Baso % (Auto) 0.6 Lymph # (Auto) 1.05 Reynolds # (Auto) 0.7 H Eos # (Auto) 0.7 H Baso # (Auto) 0.1 Abs Immat Gran (auto) 0.05 H Absolute Neuts (auto) 8.0 H Absolute Nucleated RBC 0.0 Nucleated RBC % 0.0 Platelet Estimate Adequate Anisocytosis 1+ Ovalocytes 1+ Crenated Cell 1+ Sodium 134 L Potassium 4.6 Chloride 99 Carbon Dioxide 26 Anion Gap 9 BUN 39 H Creatinine 4.60 H Estim Creat Clear Calc 11 Estimated GFR 9 L Glucose 88 POC Capillary Glucose 75 Calcium 9.1 Phosphorus 5.0 H Magnesium 2.0 Total Bilirubin 0.9 AST 20 ALT 9 Alkaline Phosphatase 198 H Total Protein 7.0 Albumin 3.2 L 12/29/20 12/29/20 20:13 16:26 WBC RBC Hgb Hct MCV MCH MCHC RDW Plt Count MPV Immature Gran % (Auto) Neut % (Auto) Lymph % (Auto) Reynolds % (Auto) Eos % (Auto) Baso % (Auto) Lymph # (Auto) Reynolds # (Auto) Eos # (Auto) Baso # (Auto) Abs Immat Gran (auto) Absolute Neuts (auto) Absolute Nucleated
[2020-12-30] MEDS: allopurinoL 100 MG TABLET PO (15:01)
[2020-12-30] MEDS: EUCERIN CREAM 120 GM JAR 1 APPLIC TOPICAL (15:01)
[2020-12-30] MEDS: SILVERGEL (ELTA) 45 ML 1 APPLIC TOPICAL (15:01)
[2020-12-30] MEDS: LIDOCAINE 5% PATCH 1 PATCH TOPICAL (15:01)
[2020-12-30 15:36] LABS: EDCOVIDSCREEN Negative (Negative)
[2020-12-30] MEDS: SACCHAROMYCES BOULARDII 250 MG CAPSULE PO (16:44)
[2020-12-30] MEDS: DOCUSATE SODIUM 100 MG CAPSULE PO (16:44)
[2020-12-30] MEDS: carvediloL 25 MG TABLET PO (16:44)
== END 2020-12-30 17:34 | DRG 623 ==
LOC: ANHED 20:48 → ANH3MED 21:52
PROVIDERS: Internal Medicine Nephrology; Orthopaedic Surgery; Physician Assistant; Admitting Provider Internal Medicine; Emergency Provider Emergency Medicine; PCP Internal Medicine; Visit Provider Internal Medicine
PROC: 0KBV0ZZ Excision of Right Foot Muscle, Open Approach (ICD-10-PCS; principal; 2020-12-23 13:00)
DX: E11.69 Type 2 diabetes mellitus with other specified complication (principal); L97.414 Non-pressure chronic ulcer of right heel and midfoot with necrosis of bone; M86.171 Other acute osteomyelitis, right ankle and foot; E87.1 Hypo-osmolality and hyponatremia; I13.11 Hypertensive heart and chronic kidney disease without heart failure, with stage 5 chronic kidney disease, or end stage renal disease; L03.115 Cellulitis of right lower limb; E11.621 Type 2 diabetes mellitus with foot ulcer; Z20.822 Contact with and (suspected) exposure to COVID-19; E11.22 Type 2 diabetes mellitus with diabetic chronic kidney disease; N18.6 End stage renal disease; Z99.2 Dependence on renal dialysis; E11.43 Type 2 diabetes mellitus with diabetic autonomic (poly)neuropathy; K31.84 Gastroparesis; E11.40 Type 2 diabetes mellitus with diabetic neuropathy, unspecified; E11.319 Type 2 diabetes mellitus with unspecified diabetic retinopathy without macular edema; H54.8 Legal blindness, as defined in USA; I27.20 Pulmonary hypertension, unspecified; I87.2 Venous insufficiency (chronic) (peripheral); D53.1 Other megaloblastic anemias, not elsewhere classified; D63.1 Anemia in chronic kidney disease; E87.6 Hypokalemia; K21.9 Gastro-esophageal reflux disease without esophagitis; E78.5 Hyperlipidemia, unspecified; D72.829 Elevated white blood cell count, unspecified; Z28.21 Immunization not carried out because of patient refusal; Z79.01 Long term (current) use of anticoagulants; Z79.4 Long term (current) use of insulin; Z79.899 Other long term (current) drug therapy; Z87.891 Personal history of nicotine dependence; Z98.42 Cataract extraction status, left eye; Z98.41 Cataract extraction status, right eye; Z86.14 Personal history of Methicillin resistant Staphylococcus aureus infection; Z86.73 Personal history of transient ischemic attack (TIA), and cerebral infarction without residual deficits
CPT/HCPCS: 36415; 73630; 80048; 80053; 80069; 82607; 82746; 82948; 83036; 83605; 83735; 84100; 85025; 85027; 86706; 87040; 87070; 87205; 87340; 87426; 96365; 96366; 96367; 97110; 97163; 97165; 97530; 99285; A9270; C9803; G0257; G0378; J0743; J1100; J1200; J1815; J2250; J2405; J2704; J3010; J3370; J7030; J7040; Q5105

== ENCOUNTER 2021-01-06 11:11 | Inpatient (IN) | payer MEDICARE, MEDICAID, SELFPAY ==
[2021-01-05 09:20] VITALS: BMI 37.5
--- NOTE | 2021-01-05 09:21 | PC.NURSE ---
NO CHANGE IN HEALTH HX SINCE LAST INTERVIEW 12/21/20
[2021-01-06] VITALS (23 sets, daily range): BP systolic 81–124; BP diastolic 42–60; PULSE 58–74; RESP 10–18; TEMP 36.1–37.1; O2SAT 91–100
--- NOTE | ~2021-01-06 | XR_ITS ---
XR chest 2V 01/07/2021 13:43 Indication: Hypoxia Procedure: 2 view chest Comparison: Comparison to multiple prior studies sequentially, with oldest reviewed study dated 11/03. Findings: There is right lower lobe airspace disease, compatible with pneumonia. Cardiomegaly. No sig nificant effusion. No pneumothorax. No acute osseous abnormality. Impression: 1: Right lower lobe airspace disease, compatible with pneumonia. Reviewed, dictated and finalized at location B. Impression: 1: Right lower lobe airspace disease, compatible with pneumonia.
--- NOTE | 2021-01-06 07:07 | PM.IMHP ---
H&P: HPI History of Present Illness Date/Time: 01/06/21 07:07 Chief Complaint: RT foot osteomyelitis, DFU Narrative: 70-year-old female with end stage renal disease on hemodialysis, insulin dependent diabetes, hypertension, chronic anemia, osteomyelitis, and several other comorbidities had excisional debridement of a foot ulcer as well as excision of right foot osteomyelitis measuring 13 x 5 cm. She has been followed by the wound clinic and she initially had a wound VAC in place which was removed approximately 5 weeks ago. her right heel wound was malodorous with surrounding redness and warmth. nonweightbearing on that foot and reports that it is elevated as much as possible. Nonhealing foot ulcer and osteo. Presents for surgery. Review of Systems Constitutional: Constitutional: Reports no additional constitutional complaints, Denies chills, Denies fatigue, Denies fever(s), Denies headache(s) and Denies weakness Eyes: Eyes: Denies change in vision ENT: Reports Normal hearing present and Denies headache(s) Cardiovascular: Cardiovascular: Denies chest pain, Reports pedal edema and Reports edema Respiratory: Respiratory: Denies cough, Denies dyspnea and Denies wheezing Gastrointestinal: Gastrointestinal: Denies constipation, Denies diarrhea, Denies nausea and Denies vomiting Genitourinary: Genitourinary: Reports no additional female genitourinary complaints Musculoskeletal: Musculoskeletal: Reports as per HPI, Reports numbness, Reports tingling and Reports other (decreased sensation b/l LE ) Integumentary/Breasts: Skin/Breast: Reports as per HPI Neurologic: Reports as per HPI, Reports Normal hearing present and Denies headache(s) Psychiatric: Psychiatric: Reports no additional psychiatric complaints Endocrine: Endocrine: Reports no additional endocrine complaints and Denies fatigue Hematologic/Lymphatic: Hematologic/Lymphatic: Reports no additional hematologic/lymphatic complaints Allergic/Immunologic: Allergic/Immunologic: Reports no additional allergic/immunologic complaints and Denies wheezing PMF Past Medical History Medical History Anxiety and depression Arthritis Benign thyroid cyst Evaluated by ultrasound a couple of years ago per patient report. Cerebrovascular accident Due to embolic event following a shoulder fracture 2016 with chronic mild left-sided weakness. Chronic anemia Chronic venous stasis dermatitis of both lower extremities Diabetic gastroparesis Diabetic neuropathy Diabetic retinopathy of both eyes End-stage renal disease on hemodialysis Previously on peritoneal dialysis. Gastroesophageal reflux disease Gout Grade II diastolic dysfunction Noted on echo on 07/04/2019. EF 55-60%. Hyperkalemia Hyperlipidemia Hypertension (Unknown) Infarction of liver (07/07/19) Insulin dependent type 2 diabetes mellitus A1c was 8.9% on 09/08/2020. Moderate pulmonary hypertension Noted on echo on 07/04/2019 with estimated pulmonary arterial systolic pressure on 53 mmHg. Morbid obesity Osteomyelitis of right foot Osteoporosis Retinal detachment Right knee pain Shingles Splenic infarct (07/07/19) Venous stasis dermatitis of right lower extremity Surgical History Surgical History History of bilateral cataract extraction (2009) History of total hysterectomy with bilateral salpingo-oophorectomy (BSO) For benign ovarian mass. Proliferative diabetic retinopathy with history of surgery Status post excisional debridement (~10/2020) Debridement of diabetic foot ulcer and osteomyelitis of right foot. Status post glaucoma surgery Surgically constructed arteriovenous fistula (2015) Family History Family History Sibling Family history of alcoholism Mother Metastatic colon cancer in female Father Cancer Of the neck due to chemical exposure Son D
--- NOTE | 2021-01-06 07:13 | WPDHPUPDATE1 ---
History and Physical Update Update Date/Time: 01/06/21 07:13 History and Physical has been reviewed, including an updated exam of the patient. There are NO changes in the patient's condition. Risks, benefits, and alternatives have been discussed and questions answered. Patient agrees to proceed with procedure.
[2021-01-06] MEDS: ACETAMINOPHEN 500 MG TABLET 1000 MG PO (08:34)
--- NOTE | 2021-01-06 08:41 | WPDANESEPPF ---
Anes - Initial Pre Proc Eval Procedure: Operation Date: 01/06/21 09:30 Proposed Procedures p Right Leg Below Knee Amputation - Rios Varma MD Date/Time: 01/06/21 08:41 Surgeon: Rios Varma MD Pre Op Diagnosis: right foot osteomylitis, diabetic foot ulcer Patient Data Age: 70 Gender: F Height: 1.63 m Weight: 99.35 kg Allergies Allergy/AdvReac Type Severity Reaction Status Date / Time No Known Allergies Allergy Mild Verified 01/05/21 07:37 Home Medications Medication Instructions Recorded Confirmed Type bupropion HCl [Wellbutrin SR] 150 mg PO DAILY 05/30/19 01/05/21 History Eliquis 2.5 mg PO BID 30 Days #60 tablet 07/10/19 01/05/21 Rx amlodipine 10 mg PO DAILY 09/07/20 01/05/21 History atorvastatin 20 mg PO HS 09/07/20 01/05/21 History allopurinol 100 mg PO DAILY 10/21/20 01/05/21 History carvedilol 25 mg PO DAILY 10/21/20 01/05/21 History docusate sodium 100 mg PO HS #0 cap 10/29/20 01/05/21 Rx famotidine 20 mg PO QAM #0 tablet 10/29/20 01/05/21 Rx Lantus U-100 Insulin 8 unit SUBCUT HS #0 ml 11/20/20 01/05/21 Rx Saccharomyces boulardii [Florastor] 250 mg PO BID #14 cap 11/20/20 01/05/21 Rx lidocaine [Lidoderm] 1 patch TOPICAL DAILY #30 ea 11/20/20 01/05/21 Rx doxycycline hyclate 100 mg PO Q12HR 9 Days #18 tablet 12/30/20 01/05/21 Rx insulin aspart U-100 [Novolog 3 - 6 units SUBCUT TIDWM 30 Days 12/30/20 01/05/21 Rx U-100 Insulin aspart] #1 ml magnesium hydroxide [Milk of 30 ml PO BID PRN 30 Days #1 ml 12/30/20 01/05/21 Rx Magnesia] Patient hx anesthesia problems: none Family hx anesthesia problems: none Results Review: All pre-operative results and documents have been reviewed as part of the pre-operative evaluation. PMFSH Past Medical History Medical History Anxiety and depression Arthritis Benign thyroid cyst Evaluated by ultrasound a couple of years ago per patient report. Cerebrovascular accident Due to embolic event following a shoulder fracture 2015 with chronic mild left-sided weakness. Chronic anemia Chronic venous stasis dermatitis of both lower extremities Diabetic gastroparesis Diabetic neuropathy Diabetic retinopathy of both eyes End-stage renal disease on hemodialysis Previously on peritoneal dialysis. Gastroesophageal reflux disease Gout Grade II diastolic dysfunction Noted on echo on 07/04/2019. EF 55-60%. Hyperkalemia Hyperlipidemia Hypertension (Unknown) Infarction of liver (07/07/19) Insulin dependent type 2 diabetes mellitus A1c was 8.9% on 09/08/2020. Moderate pulmonary hypertension Noted on echo on 07/04/2019 with estimated pulmonary arterial systolic pressure on 53 mmHg. Morbid obesity Osteomyelitis of right foot Osteoporosis Retinal detachment Right knee pain Shingles Splenic infarct (07/07/19) Venous stasis dermatitis of right lower extremity Surgical History Surgical History History of bilateral cataract extraction (2009) History of total hysterectomy with bilateral salpingo-oophorectomy (BSO) For benign ovarian mass. Proliferative diabetic retinopathy with history of surgery Status post excisional debridement (~10/2020) Debridement of diabetic foot ulcer and osteomyelitis of right foot. Status post glaucoma surgery Surgically constructed arteriovenous fistula (2015) Family History Family History Sibling Family history of alcoholism Mother Metastatic colon cancer in female Father Cancer Of the neck due to chemical exposure Son Heroin overdose Her youngest son Motor vehicle collision Her 2nd youngest son Other Hypertension Social History Social History Social History: Surrogate decision maker: dennis Lang. Code status: Full code. Smoking status: Former smoker Second bower
[2021-01-06] MEDS: SODIUM CHLORIDE 0.9% IV 500 ML 30 ML IV CONT (08:49)
[2021-01-06 08:53] LABS: Glucose Point of Care 99 mg/dl (65-105)
[2021-01-06] MEDS: ceFAZolin 2 GM/D5W 50 ML 2 GM/50 ML BAG IVPB (09:14)
[2021-01-06] MEDS: TRANEXAMIC ACID 1,000 MG/10 ML AMPUL 1000 MG IV PUSH (09:48)
--- NOTE | 2021-01-06 10:25 | SUR.OPER ---
specimen given to Pipo (PCT). Specimen received by [facility] in pathology at 1026 per Pipo, PCT
--- NOTE | 2021-01-06 11:22 | W.PM.PROC2 ---
Procedure Note - Detailed Date of Procedure 01/06/21 Pre-op Diagnosis right foot osteomylitis, diabetic foot ulcer Post-op Diagnosis same Procedure Performed RT BKA Surgeon Rios Varma MD Paint Roller Winder 1st assist Anesthesia general Indications 70-year-old woman with diabetes and renal failure, peripheral neuropathy. Chronic diabetic foot ulcer right foot now with acute on chronic osteomyelitis. Unable to control infection. Presents for amputation. Findings 8 cm ulceration extending to calcaneus right foot with large amount of bone loss. Purulent foul-smelling drainage. Midfoot ulcer extending to the midfoot bones also with purulent foul-smelling drainage. Fairly good blood flow at the transtibial amputation level. Moderate calcification of vessels distal to amputation level. Description of Procedure What was done: Patient identified in the preoperative holding. Informed consent given. Operative extremity marked. Patient received intravenous antibiotics. Patient brought to the operating room where underwent general anesthetic by anesthesia team. Positioned supine on operating room table. Time-out performed confirming the patient, site of the surgery and the plan. Leg then prepped and draped usual sterile surgical fashion using Betadine prep solution. Calf and leg exsanguinated and a thigh tourniquet inflated to 250 mmHg. Anatomic landmarks mapped out on the skin to allow for a posterior flap and approximately 12 cm of tibia below the tibial tubercle. Skin incision made with a 10 blade knife. Hemostasis controlled electrocautery. Cautery dissection carried down circumferentially through the fascia. Dissection then carried around the proximal fibula, retractors placed in sagittal saw used to transect the fibula. Elevator used to dissect soft tissue off of the tibia. Tibia once again measured and the tibia osteotomy performed with a sagittal saw with retractors posterior to protect the soft tissue. Saphenous vessels and peroneal vessels were identified and ligated with 2 0 silk suture. The peroneal nerve and saphenous nerve identified and anesthetized with 0.5% Marcaine with epinephrine and ligated. Tibia was then brought forward and an amputation knife was placed posterior to the tibia and the distal fibula and the soft tissue was transected away from the bone. The cut was completed through the Achilles tendon. The distal leg ankle and foot were then passed off as specimen. Tibial artery identified and ligated with 2 0 silk suture. Tibial nerve identified and anesthetized with 0.5% Marcaine with epinephrine and ligated. Any other bleeding points coagulated with cautery. The tourniquet was then released. Any further bleeding was controlled with cautery or 2 0 silk suture ligation. After thorough hemostasis the wound was thoroughly irrigated with antibiotic solution. The anterior cortex of the tibia was shaped with the saw to reduce pressure. Thorough irrigation again performed. Myodesis was then performed of the gastrocnemius over the distal tibia using #2 Ethibond suture placed through trans osseous holes in the distal tibia. Fascia then repaired with 0 Vicryl interrupted suture. Subcutaneous tissue repaired with 2 Vicryl 3 0 Monocryl interrupted suture and skin repaired with chanell. incisional wound VAC applied. Wound VAC necessary due to the amount of edema present in the leg to assist with wound healing and pressure relief from the incision. Patient awoken from anesthesia, extubated and taken to recovery room in stable condition. All sponge needle and instrument counts correct at the end of the case. Estimated Blood Loss -600.0 Tourniquet Time 35 Drains Yes ( Wound VAC, incisional) Packing No Pathology yes ( right foot) Complications None Condition stable Disposition PACU
[2021-01-06 11:24] LABS: Glucose Point of Care 88 mg/dl (65-105)
[2021-01-06] MEDS: fentaNYL CITRATE INJ (*CRX) 100 MCG/2 ML VIAL 25 MCG IV PUSH ×2 (11:48→11:52)
[2021-01-06 12:14] LABS: Glucose Point of Care 85 mg/dl (65-105)
--- NOTE | 2021-01-06 12:57 | SUR.PHASEI ---
1215 - dr. morales called in regards to pt's b/p. systolic pressures have been in the 80's-90's no orders received at this time 1255 - dr. morales at bedside. aware of current b/p 95/40. okayed transfer pt to floor when floor ready
--- NOTE | 2021-01-06 13:40 | ADMGEN ---
This patient, Kelley Rodriguez, was admitted to Medical Room 254-01. Patient/family oriented to hospital policies and general routines including ID bracelet, bed and alarms, visiting hours, pain management, procedures, bathroom and other care routines, personal items, smoking policy, room service/diet, and visiting hours. Information on how to activate the Rapid Response Team has been discussed. Patient/Family are encouraged to report perceived risks to care and to ask questions if they do not understand what they are told or what they should do.
[2021-01-06] MEDS: diphenhydrAMINE HCl CAP 25 MG CAPSULE PO ×2 (14:49→21:12)
[2021-01-06] MEDS: allopurinoL 100 MG TABLET PO (14:50)
[2021-01-06] MEDS: buPROPion HCL XL (24 HR) 150 MG TABCR PO (14:51)
[2021-01-06] MEDS: LIDOCAINE 5% PATCH 1 PATCH TOPICAL (14:51)
[2021-01-06 14:57] LABS: Estimated CRCL calculation 21 ml/min; Estimated Glomerular Filt Rate 19
[2021-01-06 16:38] LABS: Glucose Point of Care 147 mg/dl (65-105)
[2021-01-06] MEDS: FAMOTIDINE 20 MG TABLET PO (17:05)
[2021-01-06] MEDS: DOCUSATE SODIUM 100 MG CAPSULE PO ×2 (17:07→20:47)
[2021-01-06] MEDS: SACCHAROMYCES BOULARDII 250 MG CAPSULE PO (17:15)
[2021-01-06] MEDS: DOXYCYCLINE HYCLATE 100 MG TABLET PO (20:47)
[2021-01-06] MEDS: ATORVASTATIN 20 MG TABLET PO (20:47)
[2021-01-06] MEDS: HYDROcodone/acetaminophen (*CRX) 5-325 MG TABLET 1 TAB PO (20:48)
[2021-01-06 21:14] LABS: Glucose Point of Care 108 mg/dl (65-105)
--- NOTE | 2021-01-06 22:37 | PM.IMCN ---
Assessment and Plan Assessment and plan (1) Osteomyelitis of foot, right, acute: Code(s): M86.171 - Other acute osteomyelitis, right ankle and foot Status: Acute Assessment and Plan: Involving right 2nd through 5th metatarsal basis, cuboid and lateral cuneiform bones Along with deep plantar wound Status post excisional debridement of right diabetic ulcer and right calcaneus bone on 10/28/2020 Was treated multiple times with IV antibiotics With ongoing wound infection/osteomyelitis she is currently status post right BKA (2) Neuropathy due to type 2 diabetes mellitus: Code(s): E11.40 - Type 2 diabetes mellitus with diabetic neuropathy, unspecified Status: Acute Assessment and Plan: Resume home medication (3) Grade II diastolic dysfunction: Code(s): I51.9 - Heart disease, unspecified Status: Chronic Assessment and Plan: Well compensated watch for fluid overload (4) End-stage renal disease on hemodialysis: Code(s): N18.6 - End stage renal disease; Z99.2 - Dependence on renal dialysis Status: Chronic Assessment and Plan: On hemodialysis Sunday Nephrology consultation has been obtained for inpatient hemodialysis (5) Hypertension: Onset Date: Unknown Qualifiers: Hypertension type: essential hypertension Qualified Code(s): I10 - Essential (primary) hypertension Code(s): I10 - Essential (primary) hypertension Status: Chronic Assessment and Plan: Or running hypotensive and borderline for blood pressure will hold her blood pressure medication at this time Likely related to recent surgery (6) Anxiety and depression: Code(s): F41.9 - Anxiety disorder, unspecified; F32.9 - Major depressive disorder, single episode, unspecified Status: Chronic Assessment and Plan: Home medication (7) Peripheral arterial disease: Onset Date: Unknown Code(s): I73.9 - Peripheral vascular disease, unspecified Status: Acute Assessment and Plan: Home medications (8) Insulin dependent type 2 diabetes mellitus: Code(s): E11.9 - Type 2 diabetes mellitus without complications; Z79.4 - halfway (current) use of insulin Status: Chronic Assessment and Plan: Sliding scale insulin will be ordered Adjust insulin regimen as required (9) Chronic anemia: Code(s): D64.9 - Anemia, unspecified Status: Acute Assessment and Plan: Monitor blood counts (10) Venous stasis dermatitis of right lower extremity: Code(s): I87.2 - Venous insufficiency (chronic) (peripheral) Status: Acute Assessment and Plan: Stable (11) Status post below knee amputation of right lower extremity: Code(s): Z89.511 - Acquired absence of right leg below knee Status: Acute Assessment and Plan: Orthopedics on board status post BKA 01/06/2021 Additional Plan DVT prophylaxis: Eliquis resume when appropriate per Orthopedics currently on hold HPI Data of Consult Consult date: 01/06/21 Requesting Physician: Rios Michelle MD Primary Care Provider: Shilo EstevezMD Consult Narrative Reason for consult: Medical management Narrative: Kelley Rodriguez is a 70 year old female with past medical history of end-stage renal disease on hemodialysis, and insulin-dependent diabetes, hypertension, chronic anemia and right leg Osteo myelitis recently presented multiple episodes of worsening wound on the right foot needing excisional debridement eventually was considered for right BKA as a long-term solution for her ongoing chronic nonhealing and infected wound. She was discharged from her recent hospitalization to come back after being off anticoagulation for a week for the planned procedure. She underwent the procedure this morning with Dr. michelle. She is currently postoperative and reports pain in the surgical area. Endorses no chest pain or shortness
[2021-01-07] VITALS (18 sets, daily range): BP systolic 95–146; BP diastolic 38–63; PULSE 62–79; RESP 16–20; TEMP 36–37.4; O2SAT 92–100; BMI 34.4
[2021-01-07] MEDS: MORPHINE SULFATE (*CRX) 4 MG/ML INJ 3 MG IV PUSH (05:26)
[2021-01-07] MEDS: ONDANSETRON INJ 4 MG/2 ML VIAL IV PUSH ×2 (05:35→12:49)
[2021-01-07 05:42] LABS: Basophils Absolute Auto 0.1 K/mm3 (0.0-0.1); Basophils Percent Auto 0.5 % (0.2-1.2); Eosinophils Absolute Auto 0.3 K/mm3 (0-0.3); Eosinophils Percent Auto 2.2 % (0-4.4); Hematocrit 27.1 % (37.0-47.0); Hemoglobin 8.4 g/dL (12.0-15.0); Immature Granulocyte Absolute 0.07 K/mm3 (0.00-0.031); Immature Granulocyte Percent A 0.5 % (0-0.5); Lymphocytes Absolute Auto 0.75 K/mm3 (0.9-3.2); Lymphocytes Percent Auto 5.1 % (18.3-44.2); Mean Corpuscular Hemoglobin 32.4 pg (26-34); Mean Corpuscular Volume 104.6 fl (80-100); Monocytes Absolute Auto 0.8 K/mm3 (0.1-0.6); Monocytes Percent Auto 5.5 % (2.6-8.5); Neutrophils Absolute Auto 12.8 K/mm3 (1.3-6.7); Neutrophils Percent Auto 86.2 % (45.5-73.1); Platelet Count Result 298 k/mm3 (150-375); Red Blood Count 2.59 M/mm3 (4.2-5.4); Red Cell Distribution Width 14.8 % (11.5-14.5); White Blood Count 14.8 K/mm3 (4.5-10.0)
[2021-01-07 05:47] LABS: Anion Gap 7 mmol/L (8-16); Blood Urea Nitrogen 21 mg/dL (7-17); Calcium 8.8 mg/dL (8.4-10.2); Carbon Dioxide 33 mmol/L (22-30); Chloride 93 mmol/L (98-107); Estimated CRCL calculation 15 ml/min; Estimated Glomerular Filt Rate 13; Glucose 123 mg/dL (65-110); Potassium 4.3 mmol/L (3.4-5.0); Sodium 133 mmol/L (137-145)
[2021-01-07 06:47] LABS: Glucose Point of Care 126 mg/dl (65-105)
[2021-01-07 07:09] LABS: Hemoglobin A1C 6.2 % (<5.7)
[2021-01-07] MEDS: FAMOTIDINE 20 MG TABLET PO (08:18)
[2021-01-07] MEDS: buPROPion HCL XL (24 HR) 150 MG TABCR PO (08:18)
[2021-01-07] MEDS: DOXYCYCLINE HYCLATE 100 MG TABLET PO ×2 (08:18→20:32)
[2021-01-07] MEDS: allopurinoL 100 MG TABLET PO (08:18)
[2021-01-07] MEDS: DOCUSATE SODIUM 100 MG CAPSULE PO ×3 (08:18→20:32)
[2021-01-07] MEDS: SACCHAROMYCES BOULARDII 250 MG CAPSULE PO ×2 (08:18→16:25)
[2021-01-07] MEDS: LIDOCAINE 5% PATCH 1 PATCH TOPICAL (08:19)
--- NOTE | 2021-01-07 08:55 | PC.NURSE ---
To dialysis per bed. Report given to RICCO Danielle.
[2021-01-07] MEDS: EPOETIN ALFA-EPBX 10,000 UNITS/ML VIAL 20000 UNITS IV PUSH (09:37)
[2021-01-07] MEDS: SODIUM CHLORIDE 0.9% IV 1,000 ML 999 ML (09:38)
--- NOTE | 2021-01-07 10:13 | P.PNIM_ITS ---
Progress Note: A&P Assessment and Plan (1) Osteomyelitis of foot, right, acute: Code(s): M86.171 - Other acute osteomyelitis, right ankle and foot Status: Acute Assessment and Plan: Involving right 2nd through 5th metatarsal basis, cuboid and lateral cuneiform bones * Underwent debridement and IV antibiotic treatments, however ultimately underwent right BKA on 01/06/[address] Varma for definitive management. Care per orthopedic surgery. * Continue doxycycline and IV vancomycin, renally dosed per pharmacy * Resume low dose Eliquis once cleared by Orthopedic surgery * Analgesics available as needed * PT/OT (2) Status post below knee amputation of right lower extremity: Code(s): Z89.511 - Acquired absence of right leg below knee Status: Acute Assessment and Plan: See above (3) End-stage renal disease on hemodialysis: Code(s): N18.6 - End stage renal disease; Z99.2 - Dependence on renal dialysis Status: Chronic Assessment and Plan: On hemodialysis Sunday * Nephrology has been consulted * Continue with dialysis schedule. * She is currently receiving hemodialysis at this time. (4) Insulin dependent type 2 diabetes mellitus: Code(s): E11.9 - Type 2 diabetes mellitus without complications; Z79.4 - care home ( current) use of insulin Status: Chronic Assessment and Plan: A1c is 6.2 * Continue with Accu-Cheks, sliding scale insulin, hypoglycemic protocol * Monitor glucose trends and adjust medication regimen as needed * Will resume home long-acting insulin at lower dose when she is better tolerating her diet (5) Grade II diastolic dysfunction: Code(s): I51.9 - Heart disease, unspecified Status: Chronic Assessment and Plan: She appears clinically compensated at this time. * Monitor volume status closely * Heart healthy diet (6) Hypertension: Onset Date: Unknown Qualifiers: Hypertension type: essential hypertension Qualified Code(s): I10 - Essential (primary) hypertension Code(s): I10 - Essential (primary) hypertension Status: Chronic Assessment and Plan: Blood pressures have been on the softer side. * Home antihypertensives are on hold at this time. This includes amlodipine and carvedilol. * Monitor blood pressure trends closely, especially while undergoing hemodialysis. (7) Chronic anemia: Code(s): D64.9 - Anemia, unspecified Status: Acute Assessment and Plan: Hemoglobin and hematocrit are relatively stable on review of prior labs * Continue to monitor CBC (8) Hypoxia: Code(s): R09.02 - Hypoxemia Status: Acute Assessment and Plan: Noted to be hypoxic this morning down to 76% and she had taken off her nasal cannula. * She was asymptomatic with this per RN but was placed back on 3 L per NC and O2 sats quickly normalized * Etiology for this is unclear. She reports no home oxygen but on review of prior recent hospital stays has frequently required supplemental O2. * Continue with O2 per nasal cannula as needed with goal saturation 92% or above. Currently requiring 3 L per nasal cannula * Obtain CXR * No evidence of wheezing or bronchospasm. She is not on any home bronchodilators. Will add albuterol p.r.n. shortness of breath/wheezing Subjective Date/time seen: 01/07/21 10:13 Interval history: Date of service: 01/07/2021 Kelley Rodriguez is 70-year-old female wit
--- NOTE | 2021-01-07 10:13 | PM.IMPN ---
Progress Note: A&P Assessment and Plan (1) Osteomyelitis of foot, right, acute: Code(s): M86.171 - Other acute osteomyelitis, right ankle and foot Status: Acute Assessment and Plan: Involving right 2nd through 5th metatarsal basis, cuboid and lateral cuneiform bones Underwent debridement and IV antibiotic treatments, however ultimately underwent right BKA on 01/06/[address] Varma for definitive management. Care per orthopedic surgery. Continue doxycycline and IV vancomycin, renally dosed per pharmacy Resume low dose Eliquis once cleared by Orthopedic surgery Analgesics available as needed PT/OT (2) Status post below knee amputation of right lower extremity: Code(s): Z89.511 - Acquired absence of right leg below knee Status: Acute Assessment and Plan: See above (3) End-stage renal disease on hemodialysis: Code(s): N18.6 - End stage renal disease; Z99.2 - Dependence on renal dialysis Status: Chronic Assessment and Plan: On hemodialysis Sunday Nephrology has been consulted Continue with dialysis schedule. She is currently receiving hemodialysis at this time. 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 Monitor volume status closely Heart healthy diet (6) Hypertension: Onset Date: Unknown Qualifiers: Hypertension type: essential hypertension Qualified Code(s): I10 - Essential (primary) hypertension Code(s): I10 - Essential (primary) hypertension Status: Chronic Assessment and Plan: Blood pressures have been on the softer side. Home antihypertensives are on hold at this time. This includes amlodipine and carvedilol. Monitor blood pressure trends closely, especially while undergoing hemodialysis. (7) Chronic anemia: Code(s): D64.9 - Anemia, unspecified Status: Acute Assessment and Plan: Hemoglobin and hematocrit are relatively stable on review of prior labs Continue to monitor CBC (8) Hypoxia: Code(s): R09.02 - Hypoxemia Status: Acute Assessment and Plan: Noted to be hypoxic this morning down to 76% and she had taken off her nasal cannula. She was asymptomatic with this per RN but was placed back on 3 L per NC and O2 sats quickly normalized Etiology for this is unclear. She reports no home oxygen but on review of prior recent hospital stays has frequently required supplemental O2. Continue with O2 per nasal cannula as needed with goal saturation 92% or above. Currently requiring 3 L per nasal cannula Obtain CXR No evidence of wheezing or bronchospasm. She is not on any home bronchodilators. Will add albuterol p.r.n. shortness of breath/wheezing Subjective Date/time seen: 01/07/21 10:13 Interval history: Date of service: 01/07/2021 Kelley Rodriguez is 70-year-old female with a history of ESRD on hemodialysis, type 2 diabetes mellitus complicated by neuropathy, hypertension, hyperlipidemia, anemia of chronic disease and osteomyelitis of the right foot who is now s/p right below-knee amputation performed on 01/[address] Varma who is being seen in consultation for medical management. She is being seen while in dialysis this morning. She reports feeling poorly today. She states that she has been having persistent nausea since her surger
--- NOTE | 2021-01-07 10:24 | WPDANESPN ---
Anes - Prog Note Post-Op Date/Time: 01/07/21 10:24 Cardiovascular status: normal Respiratory status: normal Airway patency: baseline Mental status: baseline Post-Op hydration status: normal Vital Signs: Last Vital Signs Temp 37.1 C 01/07/21 08:55 Pulse 74 01/07/21 10:00 Resp 18 01/07/21 08:55 BP 100/38 L 01/07/21 10:00 Pulse Ox 94 01/07/21 07:59 Pain Score (VAS): 0 I/O: Intake & Output 01/06/21 01/07/21 01/07/21 23:59 07:59 15:59 Intake Total 500 100 120 Balance 500 100 120 Laboratory Tests 01/07/21 05:13 01/07/21 05:13 01/06/21 01/06/21 01/06/21 11:21 12:10 14:26 WBC RBC Hgb Hct MCV MCH MCHC RDW Plt Count MPV Immature Gran % (Auto) Neut % (Auto) Lymph % (Auto) [place] % (Auto) Eos % (Auto) Baso % (Auto) Lymph # (Auto) [place] # (Auto) Eos # (Auto) Baso # (Auto) Abs Immat Gran (auto) Absolute Neuts (auto) Absolute Nucleated RBC Nucleated RBC % Sodium Potassium Chloride Carbon Dioxide Anion Gap BUN Creatinine 2.50 H D Estim Creat Clear Calc 21 Estimated GFR 19 L Glucose POC Capillary Glucose 88 85 Hemoglobin A1c Calcium 01/06/21 01/06/21 01/07/21 16:33 20:46 05:13 WBC RBC Hgb Hct MCV MCH MCHC RDW Plt Count MPV Immature Gran % (Auto) Neut % (Auto) Lymph % (Auto) [place] % (Auto) Eos % (Auto) Baso % (Auto) Lymph # (Auto) [place] # (Auto) Eos # (Auto) Baso # (Auto) Abs Immat Gran (auto) Absolute Neuts (auto) Absolute Nucleated RBC Nucleated RBC % Sodium Potassium Chloride Carbon Dioxide Anion Gap BUN Creatinine Estim Creat Clear Calc Estimated GFR Glucose POC Capillary Glucose 147 H 108 H Hemoglobin A1c 6.2 H Calcium 01/07/21 01/07/21 01/07/21 05:13 05:13 06:44 WBC 14.8 H RBC 2.59 L Hgb 8.4 L Hct 27.1 L MCV 104.6 H MCH 32.4 MCHC 31.0 L RDW 14.8 H Plt Count 298 MPV 11.0 H Immature Gran % (Auto) 0.5 Neut % (Auto) 86.2 H Lymph % (Auto) 5.1 L [place] % (Auto) 5.5 Eos % (Auto) 2.2 Baso % (Auto) 0.5 Lymph # (Auto) 0.75 L [place] # (Auto) 0.8 H Eos # (Auto) 0.3 Baso # (Auto) 0.1 Abs Immat Gran (auto) 0.07 H Absolute Neuts (auto) 12.8 H Absolute Nucleated RBC 0.0 Nucleated RBC % 0.0 Sodium 133 L Potassium 4.3 Chloride 93 L Carbon Dioxide 33 H Anion Gap 7 L BUN 21 H D Creatinine 3.50 H Estim Creat Clear Calc 15 Estimated GFR 13 L Glucose 123 H POC Capillary Glucose 126 H Hemoglobin A1c Calcium 8.8 Post-procedural complaints: none Patient Feedback: Patient satisfied with anesthetic care.
--- NOTE | 2021-01-07 10:46 | PCOTNOTE ---
Attempted to see patient at this time for skilled OT session. Per RN, patient is absent for dialysis treatment at this time. Will attempt second time to see patient if able this afternoon. Will continue per OT POC accordingly.
--- NOTE | 2021-01-07 10:53 | PM.PNORT ---
Progress Note: A&P Assessment and Plan (1) Status post below knee amputation of right lower extremity: Code(s): Z89.511 - Acquired absence of right leg below knee Status: Acute Assessment and Plan: Postoperative day 1 right below-knee amputation. Patient some delirium today most likely secondary to general anesthesia. Appreciate hospitalist consult for medical management. Appreciate rn case manager. Patient currently in hemodialysis. IV vancomycin. Continue wound VAC for assistance with edema at surgical site. Nonweightbearing right lower extremity. Subjective Subjective Date/Time Seen: 01/07/21 10:53 Post Op day: 1 Principal diagnosis: Right below-knee amputation Interval history: postoperative day 1 right below-knee amputation. Patient notes pain in the calf area. Surgical findings and treatment reviewed with the patient. Currently in hemodialysis. Exam Const: General: comfortable and no acute distress Resp: Effort & Inspection: normal respiratory effort GI: Inspection: non-distended GI Palp: Yes Soft to palpation and No Tenderness to palpation present (GI) Skin: Wounds: wounds noted (Dressing right heel ) Neuro: Cognition (Neuro): normal cognition (confusion to situation ) Extrem: Right lower extremity: knee Details: other ( Transtibial amputation. Wound VAC in place. Edema improved. Skin edges with good viability.) Left lower extremity: lower leg Details: non-pitting edema Details: 2+, ankle Details: no tenderness, no swelling and no warmth and foot (Moves toes. Minimal sensation at baseline. ) Details: motor-sensory exam light-touch abnormal in all toes Other: Psych: Mental Status: mental status grossly normal Thought content: Yes Normal thought content present Objective Data Vital Signs Vital Signs: Vital Signs - 24 hr 01/06/21 11:07 01/06/21 11:15 01/06/21 11:30 Temperature 97 F L Pulse Rate 62 61 60 Respiratory Rate 10 L 12 14 Blood Pressure 81/49 L 92/50 L 95/48 L Pulse Oximetry 100 95 95 01/06/21 11:45 01/06/21 11:57 01/06/21 12:00 Temperature 97.2 F L Pulse Rate 60 69 60 Respiratory Rate 12 16 10 L Blood Pressure 93/51 L 103/57 L 90/48 L Pulse Oximetry 98 91 93 01/06/21 12:15 01/06/21 12:30 01/06/21 12:45 Temperature Pulse Rate 60 61 60 Respiratory Rate 12 12 12 Blood Pressure 88/46 L 82/60 L 91/45 L Pulse Oximetry 94 97 01/06/21 12:57 01/06/21 13:00 01/06/21 13:15 Temperature Pulse Rate 62 61 58 L Respiratory Rate 16 12 10 L Blood Pressure 100/60 95/42 L 98/50 L Pulse Oximetry 93 94 94 01/06/21 13:35 01/06/21 13:45 01/06/21 13:50 Temperature 97.2 F L Pulse Rate 69 62 Respiratory Rate 16 16 Blood Pressure 103/57 L 100/60 Pulse Oximetry 91 93 93 01/06/21 14:20 01/06/21 16:57 01/06/21 18:00 Temperature 98.4 F 98.6 F Pulse Rate 74 67 74 Respiratory Rate 16 16 16 Blood Pressure 110/58 L 95/48 L 101/49 L Pulse Oximetry 93 92 92 01/06/21 20:00 01/06/21 20:30 01/06/21 20:53 Temperature 97.6 F Pulse Rate 64 60 Respiratory Rate 16 Blood Pressure 97/45 L Pulse Oximetry 93 93 01/07/21 00:57 01/07/21 05:46 01/07/21 07:59 Temperature 97.9 F 97.6 F Pulse Rate 62 78 Respiratory Rate 16 20 Blood Pressure 95/47 L 112/45 L Pulse Oximetry 98 92 94 01/07/21 08:55 01/07/21 09:10 01/07/21 09:30 Temperature 98.8 F Pulse Rate 79 78 77 Respiratory Rate 18 Blood Pressure 113/55 L 111/56 L 111/55 L Pulse Oximetry 01/07/21 09:45 01/07/21 10:00 01/07/21 10:20 Temperature Pulse Rate 75 74 75 Respiratory Rate Blood Pressure 98/51 L 100/38 L 98/52 L Pulse Oximetry 01/07/21 10:40 Temperature Pulse Rate 75 Respiratory Rate Blood Pressure 103/47 L Pulse Oximetry Intake/Output Intake/Output: Intake & Output 01/04/21 01/05/21 01/06/21 01/07/21 23:59 23:59 23:59 23:59 Intake Total 1050 220 Balance 1050 220 Meds/Results Medications: Active Medications Gene
--- NOTE | 2021-01-07 12:30 | PC.NURSE ---
Patient returned from dialysis.
[2021-01-07] MEDS: diphenhydrAMINE HCl CAP 25 MG CAPSULE PO (12:48)
[2021-01-07] MEDS: ACETAMINOPHEN 325 MG TABLET 650 MG PO (12:48)
[2021-01-07 12:59] LABS: Glucose Point of Care 123 mg/dl (65-105)
[2021-01-07 13:56] LABS: Vancomycin Random 24.6 ug/mL (10-20)
--- NOTE | 2021-01-07 15:08 | PM.PNNEP ---
Subjective Date/time seen: 01/07/21 15:08 Interval history: Kelley is a very pleasant 70-year-old lady who has multiple medical problems including end-stage renal disease on hemodialysis 3 times a week on Tuesdays and Saturdays, hypertension, hyperlipidemia, anemia of chronic kidney disease and chronic disease, multiple infarcts on Eliquis, diabetes, peripheral vascular disease status post right [id number] amputation after a long greene with a foot ulcer that would not heal, anxiety, depression, arthritis, stroke back in 2016, GERD, gout, moderate pulmonary hypertension [place], who has been fighting the foot ulcer in the right foot for a long time. Finally it was decided that she was unable to keep the foot. She was admitted to the hospital yesterday and Dr. Lazar took her to surgery and did the [id number] amputation. The patient had her last dialysis on Sunday. She had dialysis earlier today to make up for the lack of dialysis yesterday because of the surgery, and will have another treatment tomorrow. Patient denies any chest pain or shortness of breath. She says she feels well after the surgery in general except that she still has operative pain. She is getting pain meds. She thinks she needs a stronger dose and the nurses calling the hospitalist for this. She has no belly pain. She has a hard time eating because of her pain. Review of Systems Cardiovascular: Cardiovascular: Reports no additional cardiovascular complaints Respiratory: Respiratory: Reports no additional respiratory complaints Gastrointestinal: Gastrointestinal: Reports no additional gastrointestinal complaints Genitourinary: Genitourinary: Reports no additional female genitourinary complaints Exam Narrative: WDWN in NAD skin no rash head ncat lungs clear bilaterally cor reg no rub abd BS+ nontender and soft ext no edema. Objective Data Vital Signs Vital Signs: Vital Signs - 24 hr 01/06/21 16:57 01/06/21 18:00 01/06/21 20:00 Temperature 36.9 C 37.0 C Pulse Rate 67 74 Respiratory Rate 16 16 Blood Pressure 95/48 L 101/49 L Pulse Oximetry 92 92 93 01/06/21 20:30 01/06/21 20:53 01/07/21 00:57 Temperature 36.4 C 36.6 C Pulse Rate 64 60 62 Respiratory Rate 16 16 Blood Pressure 97/45 L 95/47 L Pulse Oximetry 93 98 01/07/21 05:46 01/07/21 07:59 01/07/21 08:55 Temperature 36.4 C 37.1 C Pulse Rate 78 79 Respiratory Rate 20 18 Blood Pressure 112/45 L 113/55 L Pulse Oximetry 92 94 01/07/21 09:10 01/07/21 09:30 01/07/21 09:45 Temperature Pulse Rate 78 77 75 Respiratory Rate Blood Pressure 111/56 L 111/55 L 98/51 L Pulse Oximetry 01/07/21 10:00 01/07/21 10:20 01/07/21 10:40 Temperature Pulse Rate 74 75 75 Respiratory Rate Blood Pressure 100/38 L 98/52 L 103/47 L Pulse Oximetry 01/07/21 11:00 01/07/21 11:15 01/07/21 11:30 Temperature Pulse Rate 76 78 76 Respiratory Rate Blood Pressure 116/48 L 108/52 L 105/53 L Pulse Oximetry 01/07/21 11:45 01/07/21 11:58 Temperature 36.4 C Pulse Rate 76 78 Respiratory Rate 16 Blood Pressure 122/55 L 139/61 Pulse Oximetry Intake/Output Intake/Output: Intake & Output 01/04/21 01/05/21 01/06/21 01/07/21 23:59 23:59 23:59 23:59 Intake Total 1050 220 Output Total 500 Balance 1050 -280 Meds/Results Medications: Active Medications Generic Name Dose Route Start Last Admin Trade Name Freq PRN Reason Stop Dose Admin Acetaminophen 650 mg 01/06/21 11:11 01/07/21 12:48 Acetaminophen 325 Mg Tablet PO 650 mg Q6H PRN Administration Pain Rated 1-3 or fever Hydrocodone Bitart/Acetaminophen 1 tab 01/06/21 11:11 01/06/21 20:48 Hydrocodone/Acetaminophen (*Crx) 5-325 Mg Tablet PO 1 tab Q3H PRN Administration Pain Rated 4-6 Albuterol 2.5 mg 01/07/21 10:42 Albuterol Sulfate Neb 2.5 Mg/0.5 Ml Inh INHALATION Q6HRT PRN Shortness Of Breath Allopurinol 100 mg
--- NOTE | 2021-01-07 15:14 | PM.CNNEP ---
Assessment and Plan Assessment and plan (1) End stage renal disease: Code(s): N18.6 - End stage renal disease Status: Chronic Assessment and Plan: Patient has end-stage renal disease. She gets dialysis on Tuesdays and Saturdays. Because of surgery she had her dialysis this morning. It went well apparently except that she became anxious and signed off the machine a little early. We will get her again tomorrow. Patient's volume status seems to be reasonable. Her electrolytes are doing okay P (2) Status post below knee amputation of right lower extremity: Code(s): Z89.511 - Acquired absence of right leg below knee Status: Acute Assessment and Plan: The patient had surgery yesterday and it went well. (3) Anemia: Code(s): D64.9 - Anemia, unspecified Status: Chronic Assessment and Plan: Hemoglobin is 8.4. Will give Epogen. Hold off on iron because she is getting antibiotics. (4) Hypertension: Code(s): I10 - Essential (primary) hypertension Status: Acute Assessment and Plan: Blood pressure is doing well right now. She is on amlodipine carvedilol ill and blood pressure control seems to be doing pretty well. (5) Diabetes: Qualifiers: Diabetes mellitus type: type 2 Diabetes mellitus manager long term care insulin use: with fpc use Diabetes mellitus complication status: with kidney complications Diabetes mellitus complication detail: with chronic kidney disease Chronic kidney disease stage: on chronic dialysis Qualified Code(s): E11.22 - Type 2 diabetes mellitus with diabetic chronic kidney disease; N18.6 - End stage renal disease; Z79.4 - [facility] (current) use of insulin; Z99.2 - Dependence on renal dialysis Code(s): E11.9 - Type 2 diabetes mellitus without complications Status: Acute Assessment and Plan: On Accu-Cheks and sliding-scale insulin History of Present Illness Reason for Consult Consult date: 01/07/21 Chief Complaint Chief complaint: right foot osteomylitis, diabetic foot ulcer History of Present Illness Narrative: Kelley is a very pleasant 70-year-old lady who has multiple medical problems including end-stage renal disease on hemodialysis 3 times a week on Tuesdays and Saturdays, hypertension, hyperlipidemia, anemia of chronic kidney disease and chronic disease, multiple infarcts on Eliquis, diabetes, peripheral vascular disease status post right [id number] amputation after a long greene with a foot ulcer that would not heal, anxiety, depression, arthritis, stroke back in 2016, GERD, gout, moderate pulmonary hypertension bita, who has been fighting the foot ulcer in the right foot for a long time. Finally it was decided that she was unable to keep the foot. She was admitted to the hospital yesterday and Dr. Lazar took her to surgery and did the [id number] amputation. The patient had her last dialysis on Sunday. She had dialysis earlier today to make up for the lack of dialysis yesterday because of the surgery, and will have another treatment tomorrow. Patient denies any chest pain or shortness of breath. She says she feels well after the surgery in general except that she still has operative pain. She is getting pain meds. She thinks she needs a stronger dose and the nurses calling the hospitalist for this. She has no belly pain. She has a hard time eating because of her pain. Review of Systems Constitutional: Constitutional: Reports no additional constitutional complaints Eyes: Eyes: Reports no additional eye complaints ENT: Reports system reviewed and no additional complaints, except as documented Cardiovascular: Cardiovascular: Reports no additional cardiovascular complaints Respiratory: Respiratory: Reports no additional respiratory complaints Gastrointestinal: Gastrointestinal: Reports no additional gastrointestinal complaints Genitourinary: Genitourinary: Report
[2021-01-07] MEDS: HYDROcodone/acetaminophen (*CRX) 5-325 MG TABLET 1 TAB PO ×2 (16:25→20:31)
[2021-01-07 16:35] LABS: Glucose Point of Care 142 mg/dl (65-105)
[2021-01-07] MEDS: ATORVASTATIN 20 MG TABLET PO (20:32)
[2021-01-07 21:10] LABS: Glucose Point of Care 164 mg/dl (65-105)
[2021-01-08] VITALS (24 sets, daily range): BP systolic 85–117; BP diastolic 37–70; PULSE 69–81; RESP 16–20; TEMP 36–37; O2SAT 91–100
[2021-01-08] MEDS: HYDROcodone/acetaminophen (*CRX) 5-325 MG TABLET 1 TAB PO ×4 (02:58→21:42)
[2021-01-08 05:40] LABS: Hematocrit 23.7 % (37.0-47.0); Hemoglobin 7.2 g/dL (12.0-15.0); Mean Corpuscular HGB Conc 30.4 g/dl (32-36); Mean Corpuscular Hemoglobin 32.4 pg (26-34); Mean Corpuscular Volume 106.8 fl (80-100); Mean Platelet Volume 11.1 fl (7.4-10.4); Platelet Count Result 264 k/mm3 (150-375); Red Blood Count 2.22 M/mm3 (4.2-5.4); Red Cell Distribution Width 15.4 % (11.5-14.5); White Blood Count 11.4 K/mm3 (4.5-10.0)
[2021-01-08 06:00] LABS: Albumin Level 2.7 g/dL (3.5-5.1); Anion Gap 3 mmol/L (8-16); Blood Urea Nitrogen 18 mg/dL (7-17); Calcium 8.7 mg/dL (8.4-10.2); Carbon Dioxide 33 mmol/L (22-30); Chloride 98 mmol/L (98-107); Estimated CRCL calculation 16 ml/min; Estimated Glomerular Filt Rate 14; Glucose 168 mg/dL (65-110); Sodium 134 mmol/L (137-145)
--- NOTE | 2021-01-08 07:22 | PM.PNNEP ---
Progress Note: A&P Assessment and Plan (1) End stage renal disease: Code(s): N18.6 - End stage renal disease Status: Chronic Assessment and Plan: Patient has end-stage renal disease. She had dialysis yesterday to make up for 's dialysis. She will get a treatment today. (2) Status post below knee amputation of right lower extremity: Code(s): Z89.511 - Acquired absence of right leg below knee Status: Acute Assessment and Plan: The patient had surgery yesterday and it went well. Some expected postoperative discomfort. Getting pain meds. (3) Anemia: Code(s): D64.9 - Anemia, unspecified Status: Chronic Assessment and Plan: Hemoglobin is 7.2. To get Epogen on dialysis. Hold off on iron because she is getting antibiotics. (4) Hypertension: Code(s): I10 - Essential (primary) hypertension Status: Acute Assessment and Plan: Blood pressure is doing well right now. She is on amlodipine carvedilol and blood pressure control seems to be doing pretty well. It has been a little bit soft so antihypertensives are on hold. (5) Diabetes: Qualifiers: Diabetes mellitus type: type 2 Diabetes mellitus intermediate insulin use: with intermediate use Diabetes mellitus complication status: with kidney complications Diabetes mellitus complication detail: with chronic kidney disease Chronic kidney disease stage: on chronic dialysis Qualified Code(s): E11.22 - Type 2 diabetes mellitus with diabetic chronic kidney disease; N18.6 - End stage renal disease; Z79.4 - terminologist (current) use of insulin; Z99.2 - Dependence on renal dialysis Code(s): E11.9 - Type 2 diabetes mellitus without complications Status: Acute Assessment and Plan: On Accu-Cheks and sliding-scale insulin Subjective Date/time seen: 01/08/21 07:22 Interval history: Kelley is feeling better today. She still has pain in the operative site. She has been intermittently confused overnight according to the nurse. She denies shortness of breath or chest pain. Review of Systems Cardiovascular: Cardiovascular: Reports no additional cardiovascular complaints Respiratory: Respiratory: Reports no additional respiratory complaints Gastrointestinal: Gastrointestinal: Reports no additional gastrointestinal complaints Genitourinary: Genitourinary: Reports no additional female genitourinary complaints Exam Narrative: WDWN in NAD skin no rash head ncat lungs clear cor reg no rub abd BS+ nontender and soft ext no edema. Right lower extremity [id number] amputation. Objective Data Vital Signs Vital Signs: Vital Signs - 24 hr 01/07/21 07:59 01/07/21 08:55 01/07/21 09:10 Temperature 37.1 C Pulse Rate 79 78 Respiratory Rate 18 Blood Pressure 113/55 L 111/56 L Pulse Oximetry 94 01/07/21 09:30 01/07/21 09:45 01/07/21 10:00 Temperature Pulse Rate 77 75 74 Respiratory Rate Blood Pressure 111/55 L 98/51 L 100/38 L Pulse Oximetry 01/07/21 10:20 01/07/21 10:40 01/07/21 11:00 Temperature Pulse Rate 75 75 76 Respiratory Rate Blood Pressure 98/52 L 103/47 L 116/48 L Pulse Oximetry 01/07/21 11:15 01/07/21 11:30 01/07/21 11:45 Temperature Pulse Rate 78 76 76 Respiratory Rate Blood Pressure 108/52 L 105/53 L 122/55 L Pulse Oximetry 01/07/21 11:58 01/07/21 12:57 01/07/21 20:52 Temperature 36.4 C 36.4 C Pulse Rate 78 75 Respiratory Rate 16 18 Blood Pressure 139/61 146/63 H Pulse Oximetry 96 96 01/07/21 22:00 01/08/21 05:20 Temperature 36.6 C 36.6 C Pulse Rate 78 74 Respiratory Rate 16 16 Blood Pressure 113/40 L 91/58 L Pulse Oximetry 100 94 Intake/Output Intake/Output: Intake & Output 01/05/21 01/06/21 01/07/21 01/08/21 23:59 23:59 23:59 23:59 Intake Total 1050 640 200 Output Total 500 Balance 1050 140 200 Meds/Results Medications: Active Medications Generic Name
[2021-01-08 07:58] LABS: Glucose Point of Care 141 mg/dl (65-105)
[2021-01-08] MEDS: DOCUSATE SODIUM 100 MG CAPSULE PO ×3 (08:15→21:34)
[2021-01-08] MEDS: LIDOCAINE 5% PATCH 1 PATCH TOPICAL (08:15)
[2021-01-08] MEDS: FAMOTIDINE 20 MG TABLET PO (08:15)
[2021-01-08] MEDS: DOXYCYCLINE HYCLATE 100 MG TABLET PO ×2 (08:15→21:34)
[2021-01-08] MEDS: SACCHAROMYCES BOULARDII 250 MG CAPSULE PO ×2 (08:15→18:34)
[2021-01-08] MEDS: buPROPion HCL XL (24 HR) 150 MG TABCR PO (08:15)
[2021-01-08] MEDS: allopurinoL 100 MG TABLET PO (08:15)
[2021-01-08] MEDS: guaiFENesin 12 HR 600 MG TABCR PO ×2 (09:10→21:34)
[2021-01-08] MEDS: EUCERIN CREAM 120 GM JAR 1 APPLIC TOPICAL (09:11)
--- NOTE | 2021-01-08 09:15 | PM.PNORT ---
Progress Note: A&P Assessment and Plan (1) Status post below knee amputation of right lower extremity: Code(s): Z89.511 - Acquired absence of right leg below knee Status: Acute Assessment and Plan: POD #2 right below-knee amputation. Patient more alert today. Appreciate hospitalist consult for medical management. Appreciate financial recording clerk. Plan for hemodialysis today. IV vancomycin. Continue wound VAC for assistance with edema at surgical site. Wound VAC pressure increased to 150 mmHg. Nonweightbearing right lower extremity. Low albumin. Patient has dietary supplements. Subjective Subjective Date/Time Seen: 01/08/21 09:15 Post Op day: 2 Principal diagnosis: Right below-knee amputation Interval history: Patient awake and alert. Right calf pain improved with positioning. Review of Systems Constitutional: Constitutional: Reports no additional constitutional complaints, Denies chills, Denies fatigue, Denies fever(s), Denies headache(s) and Denies weakness Eyes: Eyes: Denies change in vision ENT: Reports Normal hearing present and Denies headache(s) Cardiovascular: Cardiovascular: Denies chest pain, Reports pedal edema and Reports edema Respiratory: Respiratory: Denies cough, Denies dyspnea and Denies wheezing Gastrointestinal: Gastrointestinal: Denies constipation, Denies diarrhea, Denies nausea and Denies vomiting Genitourinary: Genitourinary: Reports no additional female genitourinary complaints Musculoskeletal: Musculoskeletal: Reports as per HPI, Reports numbness, Reports tingling and Reports other (decreased sensation b/l LE ) Integumentary/Breasts: Skin/Breast: Reports as per HPI Neurologic: Reports as per HPI, Reports Normal hearing present and Denies headache(s) Psychiatric: Psychiatric: Reports no additional psychiatric complaints Endocrine: Endocrine: Reports no additional endocrine complaints and Denies fatigue Hematologic/Lymphatic: Hematologic/Lymphatic: Reports no additional hematologic/lymphatic complaints Allergic/Immunologic: Allergic/Immunologic: Reports no additional allergic/immunologic complaints and Denies wheezing Exam Const: General: comfortable and no acute distress Resp: Effort & Inspection: normal respiratory effort GI: Inspection: non-distended GI Palp: Yes Soft to palpation and No Tenderness to palpation present (GI) Skin: Wounds: wounds noted (Dressing right heel ) Neuro: Cognition (Neuro): normal cognition (confusion to situation ) Extrem: Right lower extremity: knee Details: other (Transtibial amputation. Wound VAC in place. Edema improved. Skin edges with good viability. Outer dressing changed) Left lower extremity: lower leg Details: non-pitting edema Details: 2+, ankle Details: no tenderness, no swelling and no warmth and foot (Moves toes. Minimal sensation at baseline. ) Details: motor-sensory exam light-touch abnormal in all toes Other: Psych: Mental Status: mental status grossly normal Thought content: Yes Normal thought content present Objective Data Vital Signs Vital Signs: Vital Signs - 24 hr 01/07/21 09:30 01/07/21 09:45 01/07/21 10:00 Temperature Pulse Rate 77 75 74 Respiratory Rate Blood Pressure 111/55 L 98/51 L 100/38 L Pulse Oximetry 01/07/21 10:20 01/07/21 10:40 01/07/21 11:00 Temperature Pulse Rate 75 75 76 Respiratory Rate Blood Pressure 98/52 L 103/47 L 116/48 L Pulse Oximetry 01/07/21 11:15 01/07/21 11:30 01/07/21 11:45 Temperature Pulse Rate 78 76 76 Respiratory Rate Blood Pressure 108/52 L 105/53 L 122/55 L Pulse Oximetry 01/07/21 11:58 01/07/21 12:57 01/07/21 20:52 Temperature 97.6 F 97.6 F Pulse Rate 78 75 Respiratory Rate 16 18 Blood Pressure 139/61 146/63 H Pulse Oximetry 96 96 01/07/21 22:00 01/08/21 05:20 01/08/21 08:25 Temperature 97.9 F 97.9 F Pulse Rate 78 74 Respiratory Rate 16 16 Blood Pressure 113/40 L 91/58 L 114/70 Pulse Oximetry 10
--- NOTE | 2021-01-08 10:27 | P.PNIM_ITS ---
Progress Note: A&P Assessment and Plan (1) Osteomyelitis of foot, right, acute: Code(s): M86.171 - Other acute osteomyelitis, right ankle and foot Status: Acute Assessment and Plan: Involving right 2nd through 5th metatarsal basis, cuboid and lateral cuneiform bones * Now s/p right BKA on 01/06/[address] Varma for definitive management. Care per orthopedic surgery. * Continue doxycycline and IV vancomycin, renally dosed per pharmacy * Resume low dose Eliquis once cleared by Orthopedic surgery * Analgesics available as needed * PT/OT (2) Status post below knee amputation of right lower extremity: Code(s): Z89.511 - Acquired absence of right leg below knee Status: Acute Assessment and Plan: See above (3) End-stage renal disease on hemodialysis: Code(s): N18.6 - End stage renal disease; Z99.2 - Dependence on renal dialysis Status: Chronic Assessment and Plan: On hemodialysis Sunday * Nephrology is following for dialysis management * Plan for dialysis today (4) Insulin dependent type 2 diabetes mellitus: Code(s): E11.9 - Type 2 diabetes mellitus without complications; Z79.4 - superintendent container terminal (current) use of insulin Status: Chronic Assessment and Plan: A1c is 6.2 * Continue with Accu-Cheks, sliding scale insulin, hypoglycemic protocol * Monitor glucose trends and adjust medication regimen as needed * Lantus 6 units qHS (5) Grade II diastolic dysfunction: Code(s): I51.9 - Heart disease, unspecified Status: Chronic Assessment and Plan: She appears clinically compensated at this time. * Monitor volume status closely * Heart healthy diet (6) Hypertension: Onset Date: Unknown Qualifiers: Hypertension type: essential hypertension Qualified Code(s): I10 - Essential (primary) hypertension Code(s): I10 - Essential (primary) hypertension Status: Chronic Assessment and Plan: Blood pressures have been on the softer side. Last BP 114/70 * Home antihypertensives are on hold at this time. This includes amlodipine and carvedilol. * Monitor blood pressure trends closely (7) Chronic anemia: Code(s): D64.9 - Anemia, unspecified Status: Acute Assessment and Plan: Hemoglobin and hematocrit are at baseline on review of prior labs * Continue to monitor CBC * Administer Retacrit infusion today. (8) Community acquired pneumonia: Code(s): J18.9 - Pneumonia, unspecified organism Status: Acute Assessment and Plan: She was requiring supplemental oxygen, therefore CXR obtained to evaluate for underlying etiologies which did demonstrate right lower lobe airspace disease compatible with pneumonia. She does have leukocytosis that is improving. * She is on doxycycline currently. Added IV Rocephin for CAP coverage * Aspiration considered given location, however no evidence to suggest aspiration * COVID-19 pneumonia unlikely given distribution on CXR and clinical symptoms. * Continue with supplemental O2 as needed with goal saturation 92% or above. Wean supplemental O2 to goal. Currently requiring 3 L. * Supportive care to include bronchodilators, expectorants, antipyretics, incentive spirometry. Subjective Date/time seen: 01/08/21 10:27 Interval history: Date of service: 01/08/2021 Kelley Rodriguez is 70-year-old female with a history of ESRD on hemodialysis, type 2 diabetes mellitus complicated by neuropa
--- NOTE | 2021-01-08 10:27 | PM.IMPN ---
Progress Note: A&P Assessment and Plan (1) Osteomyelitis of foot, right, acute: Code(s): M86.171 - Other acute osteomyelitis, right ankle and foot Status: Acute Assessment and Plan: Involving right 2nd through 5th metatarsal basis, cuboid and lateral cuneiform bones Now s/p right BKA on 01/06/[address] Varma for definitive management. Care per orthopedic surgery. Continue doxycycline and IV vancomycin, renally dosed per pharmacy Resume low dose Eliquis once cleared by Orthopedic surgery Analgesics available as needed PT/OT (2) Status post below knee amputation of right lower extremity: Code(s): Z89.511 - Acquired absence of right leg below knee Status: Acute Assessment and Plan: See above (3) End-stage renal disease on hemodialysis: Code(s): N18.6 - End stage renal disease; Z99.2 - Dependence on renal dialysis Status: Chronic Assessment and Plan: On hemodialysis Sunday Nephrology is following for dialysis management Plan for dialysis today (4) Insulin dependent type 2 diabetes mellitus: Code(s): E11.9 - Type 2 diabetes mellitus without complications; Z79.4 - longterm (current) use of insulin Status: Chronic Assessment and Plan: A1c is 6.2 Continue with Accu-Cheks, sliding scale insulin, hypoglycemic protocol Monitor glucose trends and adjust medication regimen as needed Lantus 6 units qHS (5) Grade II diastolic dysfunction: Code(s): I51.9 - Heart disease, unspecified Status: Chronic Assessment and Plan: She appears clinically compensated at this time. Monitor volume status closely Heart healthy diet (6) Hypertension: Onset Date: Unknown Qualifiers: Hypertension type: essential hypertension Qualified Code(s): I10 - Essential (primary) hypertension Code(s): I10 - Essential (primary) hypertension Status: Chronic Assessment and Plan: Blood pressures have been on the softer side. Last BP 114/70 Home antihypertensives are on hold at this time. This includes amlodipine and carvedilol. Monitor blood pressure trends closely (7) Chronic anemia: Code(s): D64.9 - Anemia, unspecified Status: Acute Assessment and Plan: Hemoglobin and hematocrit are at baseline on review of prior labs Continue to monitor CBC Administer Retacrit infusion today. (8) Community acquired pneumonia: Code(s): J18.9 - Pneumonia, unspecified organism Status: Acute Assessment and Plan: She was requiring supplemental oxygen, therefore CXR obtained to evaluate for underlying etiologies which did demonstrate right lower lobe airspace disease compatible with pneumonia. She does have leukocytosis that is improving. She is on doxycycline currently. Added IV Rocephin for CAP coverage Aspiration considered given location, however no evidence to suggest aspiration COVID-19 pneumonia unlikely given distribution on CXR and clinical symptoms. Continue with supplemental O2 as needed with goal saturation 92% or above. Wean supplemental O2 to goal. Currently requiring 3 L. Supportive care to include bronchodilators, expectorants, antipyretics, incentive spirometry. Subjective Date/time seen: 01/08/21 10:27 Interval history: Date of service: 01/08/2021 Kelley Rodriguez is 70-year-old female with a history of ESRD on hemodialysis, type 2 diabetes mellitus complicated by neuropathy, hypertension, hyperlipidemia, anemia of chronic disease and osteomyelitis of the right foot who is now s/p right below-knee amputation performed on 01/[address] Varma who is being seen in consultation for medical management. She is doing better today. She is not having any pain at this time. Denies nausea or vomiting today. Continues to report poor appetite and was able to only tolerate a small amount of her breakfast this morning. Denies fev
[2021-01-08 12:05] LABS: Glucose Point of Care 148 mg/dl (65-105)
[2021-01-08] MEDS: SODIUM CHLORIDE 0.9% IV 1,000 ML 100 ML IV CONT (14:00)
--- NOTE | 2021-01-08 14:06 | PCPTNOTE ---
Attempted x 3 to see patient (1050, 1325, and 1405). First two attempts patient was sleeping and RN asked to let patient sleep. Third attempt at 1405 patient refused to participate with therapy and c/o back pain. RN notified.
--- NOTE | 2021-01-08 14:49 | PC.NURSE ---
To dialysis. Report given to RICCO Danielle.
[2021-01-08] MEDS: EPOETIN ALFA-EPBX 20,000 UNITS/ML VIAL 20000 UNITS IV PUSH (17:09)
[2021-01-08 18:47] LABS: Glucose Point of Care 119 mg/dl (65-105)
[2021-01-08 21:05] LABS: Hematocrit 25.8 % (37.0-47.0); Hemoglobin 7.9 g/dL (12.0-15.0)
[2021-01-08] MEDS: diphenhydrAMINE HCl CAP 25 MG CAPSULE PO (21:34)
[2021-01-08] MEDS: ATORVASTATIN 20 MG TABLET PO (21:35)
[2021-01-08] MEDS: INSULIN GLARGINE (*BKC) 100 UNITS/ML 6 UNITS SUB-Q (21:38)
[2021-01-08 21:53] LABS: Glucose Point of Care 144 mg/dl (65-105)
[2021-01-09] VITALS (7 sets, daily range): BP systolic 118–124; BP diastolic 42–82; PULSE 70–74; RESP 16–21; TEMP 36–36.8; O2SAT 96–100
[2021-01-09] MEDS: diphenhydrAMINE HCl CAP 25 MG CAPSULE PO (05:21)
[2021-01-09] MEDS: HYDROcodone/acetaminophen (*CRX) 5-325 MG TABLET 1 TAB PO (05:21)
[2021-01-09 05:23] LABS: Hematocrit 25.1 % (37.0-47.0); Hemoglobin 7.5 g/dL (12.0-15.0); Mean Corpuscular HGB Conc 29.9 g/dl (32-36); Mean Corpuscular Hemoglobin 32.5 pg (26-34); Mean Corpuscular Volume 108.7 fl (80-100); Mean Platelet Volume 10.8 fl (7.4-10.4); Platelet Count Result 247 k/mm3 (150-375); Red Blood Count 2.31 M/mm3 (4.2-5.4); White Blood Count 10.4 K/mm3 (4.5-10.0)
[2021-01-09] MEDS: EUCERIN CREAM 120 GM JAR 1 APPLIC TOPICAL ×2 (05:24→08:02)
[2021-01-09 05:40] LABS: Anion Gap 3 mmol/L (8-16); Blood Urea Nitrogen 16 mg/dL (7-17); Calcium 8.9 mg/dL (8.4-10.2); Carbon Dioxide 33 mmol/L (22-30); Chloride 103 mmol/L (98-107); Estimated CRCL calculation 19 ml/min; Estimated Glomerular Filt Rate 16; Glucose 104 mg/dL (65-110); Potassium 3.8 mmol/L (3.4-5.0); Sodium 139 mmol/L (137-145)
[2021-01-09 05:46] LABS: Vancomycin Random 18.8 ug/mL (10-20)
[2021-01-09] MEDS: SACCHAROMYCES BOULARDII 250 MG CAPSULE PO ×2 (08:02→16:33)
[2021-01-09] MEDS: guaiFENesin 12 HR 600 MG TABCR PO ×2 (08:02→20:59)
[2021-01-09] MEDS: buPROPion HCL XL (24 HR) 150 MG TABCR PO (08:02)
[2021-01-09] MEDS: DOXYCYCLINE HYCLATE 100 MG TABLET PO ×2 (08:02→20:59)
[2021-01-09] MEDS: LIDOCAINE 5% PATCH 1 PATCH TOPICAL (08:02)
[2021-01-09] MEDS: allopurinoL 100 MG TABLET PO (08:02)
[2021-01-09] MEDS: DOCUSATE SODIUM 100 MG CAPSULE PO ×3 (08:02→21:00)
[2021-01-09] MEDS: FAMOTIDINE 20 MG TABLET PO (08:03)
[2021-01-09 08:23] LABS: Glucose Point of Care 85 mg/dl (65-105)
--- NOTE | 2021-01-09 09:21 | P.PNIM_ITS ---
Progress Note: A&P Assessment and Plan (1) Osteomyelitis of foot, right, acute: Code(s): M86.171 - Other acute osteomyelitis, right ankle and foot Status: Acute Assessment and Plan: Involving right 2nd through 5th metatarsal bases, cuboid and lateral cuneiform bones * Now s/p right BKA on 01/06/[address] Varma for definitive management. Care per orthopedic surgery. * Continue PO doxycycline and IV vancomycin, renally dosed per pharmacy * Resume low dose Eliquis once cleared by Orthopedic surgery * Analgesics available as needed * PT/OT (2) Status post below knee amputation of right lower extremity: Code(s): Z89.511 - Acquired absence of right leg below knee Status: Acute Assessment and Plan: See above (3) End-stage renal disease on hemodialysis: Code(s): N18.6 - End stage renal disease; Z99.2 - Dependence on renal dialysis Status: Chronic Assessment and Plan: On hemodialysis Sunday * Nephrology is following for dialysis management (4) Insulin dependent type 2 diabetes mellitus: Code(s): E11.9 - Type 2 diabetes mellitus without complications; Z79.4 - rodent exterminator (current) use of insulin Status: Chronic Assessment and Plan: A1c is 6.2 * Continue with Accu-Cheks, sliding scale insulin, hypoglycemic protocol * Monitor glucose trends and adjust medication regimen as needed * Lantus 6 units qHS (5) Grade II diastolic dysfunction: Code(s): I51.9 - Heart disease, unspecified Status: Chronic Assessment and Plan: She appears clinically compensated at this time. * Monitor volume status closely * Heart healthy diet (6) Hypertension: Onset Date: Unknown Qualifiers: Hypertension type: essential hypertension Qualified Code(s): I10 - Essential (primary) hypertension Code(s): I10 - Essential (primary) hypertension Status: Chronic Assessment and Plan: Blood pressures have been on the softer side but remaining stable and she is asymptomatic. Last BP 118/82 * Home antihypertensives are on hold at this time. This includes amlodipine and carvedilol. * Monitor blood pressure trends closely (7) Chronic anemia: Code(s): D64.9 - Anemia, unspecified Status: Acute Assessment and Plan: Secondary to ESRD. Hemoglobin and hematocrit are at baseline on review of prior labs * Continue to monitor CBC * Continue with Retacrit 3x weekly (8) Community acquired pneumonia: Code(s): J18.9 - Pneumonia, unspecified organism Status: Acute Assessment and Plan: She was requiring supplemental oxygen, therefore CXR obtained to evaluate for underlying etiologies which did demonstrate right lower lobe airspace disease compatible with pneumonia. She does have leukocytosis that is improving. * She is on doxycycline for osteomyelitis management. Added IV Rocephin for CAP coverage * Aspiration considered given location, however no evidence to suggest aspiration * COVID-19 pneumonia unlikely given distribution on CXR and clinical symptoms. She completed COVID vaccination in May. * Continue with supplemental O2 as needed with goal saturation 92% or above. W sy supplemental O2 to goal. Currently requiring 4 L but maintaining sats 96% or greater, therefore this can be weaned . * Supportive care to include bronchodilators, expectorants, antipyretics, incen tive spirometry. Subjective Date/time seen: 01/09/21 09:21 Interv
--- NOTE | 2021-01-09 09:21 | PM.IMPN ---
Progress Note: A&P Assessment and Plan (1) Osteomyelitis of foot, right, acute: Code(s): M86.171 - Other acute osteomyelitis, right ankle and foot Status: Acute Assessment and Plan: Involving right 2nd through 5th metatarsal bases, cuboid and lateral cuneiform bones Now s/p right BKA on 01/06/[address] Varma for definitive management. Care per orthopedic surgery. Continue PO doxycycline and IV vancomycin, renally dosed per pharmacy Resume low dose Eliquis once cleared by Orthopedic surgery Analgesics available as needed PT/OT (2) Status post below knee amputation of right lower extremity: Code(s): Z89.511 - Acquired absence of right leg below knee Status: Acute Assessment and Plan: See above (3) End-stage renal disease on hemodialysis: Code(s): N18.6 - End stage renal disease; Z99.2 - Dependence on renal dialysis Status: Chronic Assessment and Plan: On hemodialysis Sunday Nephrology is following for dialysis management (4) Insulin dependent type 2 diabetes mellitus: Code(s): E11.9 - Type 2 diabetes mellitus without complications; Z79.4 - terminal block assembler (current) use of insulin Status: Chronic Assessment and Plan: A1c is 6.2 Continue with Accu-Cheks, sliding scale insulin, hypoglycemic protocol Monitor glucose trends and adjust medication regimen as needed Lantus 6 units qHS (5) Grade II diastolic dysfunction: Code(s): I51.9 - Heart disease, unspecified Status: Chronic Assessment and Plan: She appears clinically compensated at this time. Monitor volume status closely Heart healthy diet (6) Hypertension: Onset Date: Unknown Qualifiers: Hypertension type: essential hypertension Qualified Code(s): I10 - Essential (primary) hypertension Code(s): I10 - Essential (primary) hypertension Status: Chronic Assessment and Plan: Blood pressures have been on the softer side but remaining stable and she is asymptomatic. Last BP 118/82 Home antihypertensives are on hold at this time. This includes amlodipine and carvedilol. Monitor blood pressure trends closely (7) Chronic anemia: Code(s): D64.9 - Anemia, unspecified Status: Acute Assessment and Plan: Secondary to ESRD. Hemoglobin and hematocrit are at baseline on review of prior labs Continue to monitor CBC Continue with Retacrit 3x weekly (8) Community acquired pneumonia: Code(s): J18.9 - Pneumonia, unspecified organism Status: Acute Assessment and Plan: She was requiring supplemental oxygen, therefore CXR obtained to evaluate for underlying etiologies which did demonstrate right lower lobe airspace disease compatible with pneumonia. She does have leukocytosis that is improving. She is on doxycycline for osteomyelitis management. Added IV Rocephin for CAP coverage Aspiration considered given location, however no evidence to suggest aspiration COVID-19 pneumonia unlikely given distribution on CXR and clinical symptoms. She completed COVID vaccination in May. Continue with supplemental O2 as needed with goal saturation 92% or above. Wean supplemental O2 to goal. Currently requiring 4 L but maintaining sats 96% or greater, therefore this can be weaned . Supportive care to include bronchodilators, expectorants, antipyretics, incentive spirometry. Subjective Date/time seen: 01/09/21 09:21 Interval history: Date of service: 01/09/2021 Kelley Rodriguez is 70-year-old female with a history of ESRD on hemodialysis, type 2 diabetes mellitus complicated by neuropathy, hypertension, hyperlipidemia, anemia of chronic disease and osteomyelitis of the right foot who is now s/p right below-knee amputation performed on 01/[address] Varma who is being seen in consultation for medical management. She is feeling well today. She complains of itching all over
--- NOTE | 2021-01-09 09:27 | PM.PNNEP ---
Progress Note: A&P Assessment and Plan (1) End stage renal disease: Code(s): N18.6 - End stage renal disease Status: Chronic Assessment and Plan: Patient has end-stage renal disease. next treatment is due on Sunday. (2) Status post below knee amputation of right lower extremity: Code(s): Z89.511 - Acquired absence of right leg below knee Status: Acute Assessment and Plan: The patient Has some postoperative pain but it is gradually improved. (3) Anemia: Code(s): D64.9 - Anemia, unspecified Status: Chronic Assessment and Plan: Hemoglobin is bouncing around in the sevens. She is getting Epo with dialysis (4) Hypertension: Code(s): I10 - Essential (primary) hypertension Status: Acute Assessment and Plan: Blood pressure is under good control She is on amlodipine carvedilol generally, but both are on hold. 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 Diabetes mellitus complication status: with kidney complications Diabetes mellitus complication detail: with chronic kidney disease Chronic kidney disease stage: on chronic dialysis Qualified Code(s): E11.22 - Type 2 diabetes mellitus with diabetic chronic kidney disease; N18.6 - End stage renal disease; Z79.4 - senior care (current) use of insulin; Z99.2 - Dependence on renal dialysis Code(s): E11.9 - Type 2 diabetes mellitus without complications Status: Acute Assessment and Plan: On Accu-Cheks and sliding-scale insulin Subjective Date/time seen: 01/09/21 09:27 Interval history: Kelley is much clearer today Appetite is good. Exam Narrative: WDWN in NAD skin no rash head ncat lungs clear bilaterally cor reg no rub or gallop abd BS+ nontender and soft ext no edema. Right lower extremity [id number] amputation. Objective Data Vital Signs Vital Signs: Vital Signs - 24 hr 01/08/21 13:54 01/08/21 14:30 01/08/21 14:50 Temperature 36.8 C 36.3 C L Pulse Rate 74 74 Respiratory Rate 20 16 Blood Pressure 114/68 106/42 L Pulse Oximetry 94 100 01/08/21 15:03 01/08/21 15:15 01/08/21 15:30 Temperature Pulse Rate 73 73 73 Respiratory Rate Blood Pressure 112/53 L 105/48 L 94/40 L Pulse Oximetry 01/08/21 15:45 01/08/21 16:00 01/08/21 16:15 Temperature Pulse Rate 73 73 73 Respiratory Rate Blood Pressure 110/49 L 116/49 L 106/46 L Pulse Oximetry 01/08/21 16:30 01/08/21 16:45 01/08/21 17:00 Temperature Pulse Rate 70 74 73 Respiratory Rate Blood Pressure 96/44 L 104/45 L 97/44 L Pulse Oximetry 01/08/21 17:15 01/08/21 17:20 01/08/21 17:30 Temperature Pulse Rate 69 72 71 Respiratory Rate Blood Pressure 85/37 L 93/39 L 101/43 L Pulse Oximetry 01/08/21 17:45 01/08/21 18:03 01/08/21 18:15 Temperature 37.0 C Pulse Rate 69 72 69 Respiratory Rate 16 Blood Pressure 101/43 L 98/47 L 99/43 L Pulse Oximetry 01/08/21 18:44 01/08/21 21:47 01/08/21 22:00 Temperature 36.8 C 36.6 C Pulse Rate 80 81 Respiratory Rate 18 18 Blood Pressure 117/39 L 116/54 L Pulse Oximetry 96 96 97 01/09/21 02:00 01/09/21 06:00 Temperature 36.4 C L 36.2 C L Pulse Rate 74 72 Respiratory Rate 21 H 18 Blood Pressure 118/47 L 118/82 Pulse Oximetry 100 96 Intake/Output Intake/Output: Intake & Output 01/06/21 01/07/21 01/08/21 01/09/21 23:59 23:59 23:59 23:59 Intake Total 1050 640 770 150 Output Total 500 875 Balance 1050 140 -105 150 Meds/Results Medications: Active Medications Generic Name Dose Route Start Last Admin Trade Name Freq PRN Reason Stop Dose Admin Acetaminophen 650 mg 01/06/21 11:11 01/07/21 12:48 Acetaminophen 325 Mg Tablet PO 650 mg Q6H PRN Administration Pain Rated 1-3 or fever Hydrocodone Bitart/Acetaminophen 1 tab 01/06/21 11:11 01/09/21 05:21 Hydrocodone/Ac
--- NOTE | 2021-01-09 09:59 | PM.PNORT ---
Progress Note: A&P Assessment and Plan (1) Status post below knee amputation of right lower extremity: Code(s): Z89.511 - Acquired absence of right leg below knee Status: Acute Assessment and Plan: POD #3 right below-knee amputation. Patient more alert today. Pain improved. Minimal complaints at this time. Appreciate hospitalist consult for medical management. Appreciate dress designer. Hemodialysis yesterday. IV vancomycin. Continue wound VAC for assistance with edema at surgical site. Wound VAC pressure increased to 150 mmHg. Nonweightbearing right lower extremity. Plan for wound VAC dressing change tomorrow 01/10/21. Low albumin. Patient has dietary supplements. Subjective Subjective Date/Time Seen: 01/09/21 09:59 Post Op day: 3 Principal diagnosis: right below-knee amputation Interval history: patient awake and alert this morning. Pain right leg much improved. Only mild stabbing intermittent pain. Calf pain resolved. Review of Systems Constitutional: Constitutional: Reports no additional constitutional complaints, Denies chills, Denies fatigue, Denies fever(s), Denies headache(s) and Denies weakness Eyes: Eyes: Denies change in vision ENT: Reports Normal hearing present and Denies headache(s) Cardiovascular: Cardiovascular: Denies chest pain, Reports pedal edema and Reports edema Respiratory: Respiratory: Denies cough, Denies dyspnea and Denies wheezing Gastrointestinal: Gastrointestinal: Denies constipation, Denies diarrhea, Denies nausea and Denies vomiting Genitourinary: Genitourinary: Reports no additional female genitourinary complaints Musculoskeletal: Musculoskeletal: Reports as per HPI, Reports numbness, Reports tingling and Reports other (decreased sensation b/l LE ) Integumentary/Breasts: Skin/Breast: Reports as per HPI Neurologic: Reports as per HPI, Reports Normal hearing present and Denies headache(s) Psychiatric: Psychiatric: Reports no additional psychiatric complaints Endocrine: Endocrine: Reports no additional endocrine complaints and Denies fatigue Hematologic/Lymphatic: Hematologic/Lymphatic: Reports no additional hematologic/lymphatic complaints Allergic/Immunologic: Allergic/Immunologic: Reports no additional allergic/immunologic complaints and Denies wheezing Exam Const: General: comfortable and no acute distress Resp: Effort & Inspection: normal respiratory effort GI: Inspection: non-distended GI Palp: Yes Soft to palpation and No Tenderness to palpation present (GI) Skin: Wounds: wounds noted (Dressing right heel ) Neuro: Cognition (Neuro): normal cognition (confusion to situation ) Extrem: Right lower extremity: knee Details: other (Transtibial amputation. Wound VAC in place. Edema improved.) Left lower extremity: lower leg Details: non-pitting edema Details: 2+, ankle Details: no tenderness, no swelling and no warmth and foot (Moves toes. Minimal sensation at baseline. ) Details: motor-sensory exam light-touch abnormal in all toes Other: Psych: Mental Status: mental status grossly normal Thought content: Yes Normal thought content present Objective Data Vital Signs Vital Signs: Vital Signs - 24 hr 01/08/21 13:54 01/08/21 14:30 01/08/21 14:50 Temperature 98.2 F 97.4 F L Pulse Rate 74 74 Respiratory Rate 20 16 Blood Pressure 114/68 106/42 L Pulse Oximetry 94 100 01/08/21 15:03 01/08/21 15:15 01/08/21 15:30 Temperature Pulse Rate 73 73 73 Respiratory Rate Blood Pressure 112/53 L 105/48 L 94/40 L Pulse Oximetry 01/08/21 15:45 01/08/21 16:00 01/08/21 16:15 Temperature Pulse Rate 73 73 73 Respiratory Rate Blood Pressure 110/49 L 116/49 L 106/46 L Pulse Oximetry 01/08/21 16:30 01/08/21 16:45 01/08/21 17:00 Temperature Pulse Rate 70 74 73 Respiratory Rate Blood Pressure 96/44 L 104/45 L 97/44 L Pulse Oximetry 01/08/21 17:15 01/08/21 17:20 01/08/21 17:30 Temperature Puls
[2021-01-09 12:03] LABS: Glucose Point of Care 137 mg/dl (65-105)
[2021-01-09 16:50] LABS: Glucose Point of Care 139 mg/dl (65-105)
[2021-01-09] MEDS: ATORVASTATIN 20 MG TABLET PO (20:59)
[2021-01-09] MEDS: INSULIN GLARGINE (*BKC) 100 UNITS/ML 6 UNITS SUB-Q (21:02)
[2021-01-09 21:09] LABS: Glucose Point of Care 121 mg/dl (65-105)
[2021-01-10] MEDS: HYDROcodone/acetaminophen (*CRX) 5-325 MG TABLET 1 TAB PO (03:12)
[2021-01-10 03:34] VITALS: BP 146/50; PULSE 78; RESP 17; TEMP 36.2; O2SAT 97
[2021-01-10 05:46] LABS: Hematocrit 25.6 % (37.0-47.0); Hemoglobin 7.7 g/dL (12.0-15.0); Mean Corpuscular HGB Conc 30.1 g/dl (32-36); Mean Corpuscular Hemoglobin 32.8 pg (26-34); Mean Corpuscular Volume 108.9 fl (80-100); Mean Platelet Volume 10.4 fl (7.4-10.4); Platelet Count Result 254 k/mm3 (150-375); Red Blood Count 2.35 M/mm3 (4.2-5.4); White Blood Count 10.5 K/mm3 (4.5-10.0)
[2021-01-10 06:27] LABS: Alanine Aminotransferase 7 U/L (4-35); Albumin Level 2.9 g/dL (3.5-5.1); Alkaline Phosphatase 188 U/L (38-126); Anion Gap 8 mmol/L (8-16); Aspartate Amino Transferase 25 U/L (14-36); Bilirubin,Total 0.8 mg/dL (0.2-1.3); Blood Urea Nitrogen 24 mg/dL (7-17); CRP 19.4 mg/dL (<1.0); Calcium 9.2 mg/dL (8.4-10.2); Carbon Dioxide 29 mmol/L (22-30); Chloride 98 mmol/L (98-107); Estimated CRCL calculation 14 ml/min; Estimated Glomerular Filt Rate 11; Glucose 102 mg/dL (65-110); Lactate Dehydrogenase 403 U/L (313-618); Sodium 135 mmol/L (137-145)
--- NOTE | 2021-01-10 06:57 | PM.PNNEP ---
Progress Note: A&P Assessment and Plan (1) End stage renal disease: Code(s): N18.6 - End stage renal disease Status: Chronic Assessment and Plan: Patient has end-stage renal disease. volume status looks good. Potassium and bicarbonate are fine. next treatment is due tomorrow (2) Status post below knee amputation of right lower extremity: Code(s): Z89.511 - Acquired absence of right leg below knee Status: Acute Assessment and Plan: The patient Has some postoperative pain but it is gradually improved. (3) Anemia: Code(s): D64.9 - Anemia, unspecified Status: Chronic Assessment and Plan: Hemoglobin is bouncing around in the sevens. She is getting Epo with dialysis (4) Hypertension: Code(s): I10 - Essential (primary) hypertension Status: Acute Assessment and Plan: Blood pressure is under good control The last 1 was in the 140s. She is on amlodipine carvedilol generally, but both are on hold. 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 Diabetes mellitus complication status: with kidney complications Diabetes mellitus complication detail: with chronic kidney disease Chronic kidney disease stage: on chronic dialysis Qualified Code(s): E11.22 - Type 2 diabetes mellitus with diabetic chronic kidney disease; N18.6 - End stage renal disease; Z79.4 - [facility]DC (current) use of insulin; Z99.2 - Dependence on renal dialysis Code(s): E11.9 - Type 2 diabetes mellitus without complications Status: Acute Assessment and Plan: On Accu-Cheks and sliding-scale insulin Subjective Date/time seen: 01/10/21 06:57 Interval history: Kelley is Feeling okay. She did not really sleep well because she watched a movie overnight. Eating okay. Exam Narrative: WDWN in NAD skin no rash or subQ nodules head ncat lungs clear bilaterally cor reg no rub abd BS+ nontender and soft ext no edema. Right lower extremity [id number] amputation. Objective Data Vital Signs Vital Signs: Vital Signs - 24 hr 01/09/21 08:00 01/09/21 10:39 01/09/21 17:45 Temperature 36.8 C 36.3 C L Pulse Rate 70 74 Respiratory Rate 18 16 Blood Pressure 122/42 L 119/49 L Pulse Oximetry 100 97 100 01/09/21 19:29 01/09/21 20:51 01/10/21 03:34 Temperature 36.0 C L 36.2 C L Pulse Rate 72 78 Respiratory Rate 16 17 Blood Pressure 124/48 L 146/50 H Pulse Oximetry 99 99 97 Intake/Output Intake/Output: Intake & Output 01/07/21 01/08/21 01/09/21 01/10/21 23:59 23:59 23:59 23:59 Intake Total 640 770 800 400 Output Total 500 875 900 Balance 140 -105 800 -500 Meds/Results Medications: Active Medications Generic Name Dose Route Start Last Admin Trade Name Freq PRN Reason Stop Dose Admin Acetaminophen 650 mg 01/06/21 11:11 01/07/21 12:48 Acetaminophen 325 Mg Tablet PO 650 mg Q6H PRN Administration Pain Rated 1-3 or fever Hydrocodone Bitart/Acetaminophen 1 tab 01/06/21 11:11 01/10/21 03:12 Hydrocodone/Acetaminophen (*Crx) 5-325 Mg Tablet PO 1 tab Q3H PRN Administration Pain Rated 4-6 Albuterol 2.5 mg 01/07/21 10:42 Albuterol Sulfate Neb 2.5 Mg/0.5 Ml Inh INHALATION Q6HRT PRN Shortness Of Breath Allopurinol 100 mg 01/06/21 09:00 01/09/21 08:02 Allopurinol 100 Mg Tablet PO 100 mg DAILY MICHELL Administration Amlodipine Besylate 10 mg 01/06/21 09:00 01/06/21 14:54 Amlodipine Besylate 5 Mg Tablet PO Not Given DAILY MICHELL Atorvastatin Calcium 20 mg 01/06/21 21:00 01/09/21 20:59 Atorvastatin 20 Mg Tablet PO 20 mg HS MICHELL Administration Bupropion HCl 150 mg 01/06/21 09:00 01/09/21 08:02 Bupropion Hcl Xl (24 Hr) 150 Mg Tabcr PO 150 mg DAILY MICHELL Administration Carvedilol 25 mg
[2021-01-10 07:20] LABS: Glucose Point of Care 92 mg/dl (65-105)
[2021-01-10] MEDS: guaiFENesin 12 HR 600 MG TABCR PO ×2 (08:42→20:56)
[2021-01-10] MEDS: SACCHAROMYCES BOULARDII 250 MG CAPSULE PO ×2 (08:42→17:12)
[2021-01-10] MEDS: DOCUSATE SODIUM 100 MG CAPSULE PO ×3 (08:42→20:56)
[2021-01-10] MEDS: buPROPion HCL XL (24 HR) 150 MG TABCR PO (08:42)
[2021-01-10] MEDS: LIDOCAINE 5% PATCH 1 PATCH TOPICAL (08:42)
[2021-01-10] MEDS: FAMOTIDINE 20 MG TABLET PO (08:42)
[2021-01-10] MEDS: DOXYCYCLINE HYCLATE 100 MG TABLET PO ×2 (08:42→20:56)
[2021-01-10] MEDS: allopurinoL 100 MG TABLET PO (08:42)
[2021-01-10] MEDS: ONDANSETRON INJ 4 MG/2 ML VIAL IV PUSH (09:57)
--- NOTE | 2021-01-10 10:54 | P.PNIM_ITS ---
Progress Note: A&P Assessment and Plan (1) Osteomyelitis of foot, right, acute: Code(s): M86.171 - Other acute osteomyelitis, right ankle and foot Status: Acute Assessment and Plan: Involving right 2nd through 5th metatarsal bases, cuboid and lateral cuneiform bones * Now s/p right BKA on 01/06/[address] Varma for definitive management. Care per orthopedic surgery. * Continue PO doxycycline and IV vancomycin, renally dosed per pharmacy * Resume low dose Eliquis once cleared by Orthopedic surgery * Analgesics available as needed * PT/OT (2) Status post below knee amputation of right lower extremity: Code(s): Z89.511 - Acquired absence of right leg below knee Status: Acute Assessment and Plan: See above (3) End-stage renal disease on hemodialysis: Code(s): N18.6 - End stage renal disease; Z99.2 - Dependence on renal dialysis Status: Chronic Assessment and Plan: On hemodialysis Sunday * Nephrology is following for dialysis management * Due for dialysis tomorrow (4) Insulin dependent type 2 diabetes mellitus: Code(s): E11.9 - Type 2 diabetes mellitus without complications; 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 Blood sugars have been well controlled * Continue with Accu-Cheks, sliding scale insulin, hypoglycemic protocol * Monitor glucose trends and adjust medication regimen as needed * Lantus 6 units qHS (5) Grade II diastolic dysfunction: Code(s): I51.9 - Heart disease, unspecified Status: Chronic Assessment and Plan: She appears clinically compensated at this time. * Monitor volume status closely * Heart healthy diet * She is euvolemic on exam. (6) Hypertension: Onset Date: Unknown Qualifiers: Hypertension type: essential hypertension Qualified Code(s): I10 - Essential (primary) hypertension Code(s): I10 - Essential (primary) hypertension Status: Chronic Assessment and Plan: Blood pressures have been stable. Last BP 146/50 * Home antihypertensives (amlodipine and carvedilol) are on hold as BP had been soft. BP seems to be increasing overall and will plan to resume antihypertens mariah when clinically appropriate * Monitor blood pressure trends closely (7) Chronic anemia: Code(s): D64.9 - Anemia, unspecified Status: Acute Assessment and Plan: Secondary to ESRD. Hemoglobin and hematocrit are at baseline on review of prior labs * Continue to monitor CBC * Continue with Retacrit 3x weekly (8) Community acquired pneumonia: Code(s): J18.9 - Pneumonia, unspecified organism Status: Acute Assessment and Plan: She was requiring supplemental oxygen, therefore CXR obtained to evaluate for underlying etiologies which did demonstrate right lower lobe airspace disease compatible with pneumonia. She does have leukocytosis that has essentially resolved * She is on doxycycline for osteomyelitis management. Added IV Rocephin for CAP coverage * Aspiration considered given location, however no evidence to suggest aspiration, no dysphagia * COVID-19 pneumonia unlikely given distribution on CXR and clinical symptoms. She completed COVID vaccination in May. * Continue with supplemental O2 as needed with goal saturation 92% or above. Wean supplemental O2 to goal. Currently requiring 3L per nasal cannula and maintaining sats 97% or above, therefore this can be weaned
--- NOTE | 2021-01-10 10:54 | PM.IMPN ---
Progress Note: A&P Assessment and Plan (1) Osteomyelitis of foot, right, acute: Code(s): M86.171 - Other acute osteomyelitis, right ankle and foot Status: Acute Assessment and Plan: Involving right 2nd through 5th metatarsal bases, cuboid and lateral cuneiform bones Now s/p right BKA on 01/06/[address] Varma for definitive management. Care per orthopedic surgery. Continue PO doxycycline and IV vancomycin, renally dosed per pharmacy Resume low dose Eliquis once cleared by Orthopedic surgery Analgesics available as needed PT/OT (2) Status post below knee amputation of right lower extremity: Code(s): Z89.511 - Acquired absence of right leg below knee Status: Acute Assessment and Plan: See above (3) End-stage renal disease on hemodialysis: Code(s): N18.6 - End stage renal disease; Z99.2 - Dependence on renal dialysis Status: Chronic Assessment and Plan: On hemodialysis Sunday Nephrology is following for dialysis management Due for dialysis tomorrow (4) Insulin dependent type 2 diabetes mellitus: Code(s): E11.9 - Type 2 diabetes mellitus without complications; 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 Blood sugars have been well controlled Continue with Accu-Cheks, sliding scale insulin, hypoglycemic protocol Monitor glucose trends and adjust medication regimen as needed Lantus 6 units qHS (5) Grade II diastolic dysfunction: Code(s): I51.9 - Heart disease, unspecified Status: Chronic Assessment and Plan: She appears clinically compensated at this time. Monitor volume status closely Heart healthy diet She is euvolemic on exam. (6) Hypertension: Onset Date: Unknown Qualifiers: Hypertension type: essential hypertension Qualified Code(s): I10 - Essential (primary) hypertension Code(s): I10 - Essential (primary) hypertension Status: Chronic Assessment and Plan: Blood pressures have been stable. Last BP 146/50 Home antihypertensives (amlodipine and carvedilol) are on hold as BP had been soft. BP seems to be increasing overall and will plan to resume antihypertensives when clinically appropriate Monitor blood pressure trends closely (7) Chronic anemia: Code(s): D64.9 - Anemia, unspecified Status: Acute Assessment and Plan: Secondary to ESRD. Hemoglobin and hematocrit are at baseline on review of prior labs Continue to monitor CBC Continue with Retacrit 3x weekly (8) Community acquired pneumonia: Code(s): J18.9 - Pneumonia, unspecified organism Status: Acute Assessment and Plan: She was requiring supplemental oxygen, therefore CXR obtained to evaluate for underlying etiologies which did demonstrate right lower lobe airspace disease compatible with pneumonia. She does have leukocytosis that has essentially resolved She is on doxycycline for osteomyelitis management. Added IV Rocephin for CAP coverage Aspiration considered given location, however no evidence to suggest aspiration, no dysphagia COVID-19 pneumonia unlikely given distribution on CXR and clinical symptoms. She completed COVID vaccination in May. Continue with supplemental O2 as needed with goal saturation 92% or above. Wean supplemental O2 to goal. Currently requiring 3L per nasal cannula and maintaining sats 97% or above, therefore this can be weaned Supportive care to include bronchodilators, expectorants, antipyretics, incentive spirometry. She has required supplemental oxygen frequently during previous hospitalizations, and she may be at a point where she is requiring home oxygen. She will need a home O2 eval prior to discharge. (9) Nausea and vomiting: Code(s): R11.2 - Nausea with vomiting, unspecified Status: Acute Assessment and Plan: 1 episode of
--- NOTE | 2021-01-10 11:15 | PCDIET ---
Nutrition Follow-Up Complete: Nutrition Diagnosis: Inadequate oral intake related to decreased intake, increased needs for healing as evidenced by significant weight loss and need for IDPN. Nutrition Goal: Patient to consume 75% of meals/supplements or greater. Goal not met. Average intake from last review has been less than 25% of recorded meals. Patient reports unable to tolerate orange Doug, but is agreeable to try fruit punch flavor. Does not recall receiving Nepro supplement. Discussed importance of nutrition relating to wound healing. Recommend change to fruit punch Doug BID and increasing Nepro to BID. Heart healthy, diabetic diet acceptable to maximize intake, as long as potassium remains controlled. Last recorded weight is 98 kg which is increased from last review. Last dialysis on 01/08/21 with documented 875mL fluid removed. Bowel Motility: Last reported BM on 01/07/21, per patient. Labs Reviewed: WBC (10.5), RBC (2.35), Hgb (7.7), Hct (25.6), BUN (24), Cr (3.9), Na (135), Alb (2.9) Meds Noted: Brantley, Albumin, Albuterol, Zyloprim, Florastor, Vancomycin, Lipitor, Wellbutrin, Rocephin, Colace, Vibramycin, Retacrit, Pepcid, Lantus Additional Notes: Wound vac to right BKA site. No other skin breakdown documented. Will continue to monitor with same goal. Nutrition Monitoring and Evaluation: Follow up every 3 days.
[2021-01-10 11:38] LABS: Lipase 12 U/L (23-300)
[2021-01-10 11:50] LABS: Glucose Point of Care 103 mg/dl (65-105)
[2021-01-10] MEDS: polyethylene glycoL 3350 17 GM POWD.PACK PO (12:18)
--- NOTE | 2021-01-10 13:35 | PM.PNORT ---
Progress Note: A&P Assessment and Plan (1) Status post below knee amputation of right lower extremity: Code(s): Z89.511 - Acquired absence of right leg below knee Status: Acute Assessment and Plan: POD #4 right below-knee amputation. Patient more alert today. Pain improved. Minimal complaints at this time. Appreciate hospitalist consult for medical management. Appreciate research investigator. Discussed case in person January 09, 2021. Hemodialysis back on regular schedule. IV vancomycin. Low albumin. Patient has dietary supplements. Wound VAC dressing change today. Incision clean dry and intact with no signs of dehiscence or breakdown. No signs of skin necrosis. Subjective Subjective Date/Time Seen: 01/10/21 13:35 Post Op day: 4 Principal diagnosis: Right below-knee amputation Interval history: Patient awake and alert. No new complaints. Tolerating diet. Hemodialysis on Sunday schedule. Review of Systems Constitutional: Constitutional: Reports no additional constitutional complaints, Denies chills, Denies fatigue, Denies fever(s), Denies headache(s) and Denies weakness Eyes: Eyes: Denies change in vision ENT: Reports Normal hearing present and Denies headache(s) Cardiovascular: Cardiovascular: Denies chest pain, Reports pedal edema and Reports edema Respiratory: Respiratory: Denies cough, Denies dyspnea and Denies wheezing Gastrointestinal: Gastrointestinal: Denies constipation, Denies diarrhea, Denies nausea and Denies vomiting Genitourinary: Genitourinary: Reports no additional female genitourinary complaints Musculoskeletal: Musculoskeletal: Reports as per HPI, Reports numbness, Reports tingling and Reports other (decreased sensation b/l LE ) Integumentary/Breasts: Skin/Breast: Reports as per HPI Neurologic: Reports as per HPI, Reports Normal hearing present and Denies headache(s) Psychiatric: Psychiatric: Reports no additional psychiatric complaints Endocrine: Endocrine: Reports no additional endocrine complaints and Denies fatigue Hematologic/Lymphatic: Hematologic/Lymphatic: Reports no additional hematologic/lymphatic complaints Allergic/Immunologic: Allergic/Immunologic: Reports no additional allergic/immunologic complaints and Denies wheezing Exam Const: General: comfortable and no acute distress Resp: Effort & Inspection: normal respiratory effort GI: Inspection: non-distended GI Palp: Yes Soft to palpation and No Tenderness to palpation present (GI) Skin: Wounds: wounds noted (Dressing right heel ) Neuro: Cognition (Neuro): normal cognition (confusion to situation ) Extrem: Right lower extremity: knee Details: other (Transtibial amputation. Wound VAC in place. Edema improved.) Left lower extremity: lower leg Details: non-pitting edema Details: 2+, ankle Details: no tenderness, no swelling and no warmth and foot (Moves toes. Minimal sensation at baseline. ) Details: motor-sensory exam light-touch abnormal in all toes Other: Psych: Mental Status: mental status grossly normal Thought content: Yes Normal thought content present Objective Data Vital Signs Vital Signs: Vital Signs - 24 hr 01/09/21 17:45 01/09/21 19:29 01/09/21 20:51 Temperature 97.4 F L 96.8 F L Pulse Rate 74 72 Respiratory Rate 16 16 Blood Pressure 119/49 L 124/48 L Pulse Oximetry 100 99 99 01/10/21 03:34 Temperature 97.2 F L Pulse Rate 78 Respiratory Rate 17 Blood Pressure 146/50 H Pulse Oximetry 97 Intake/Output Intake/Output: Intake & Output 01/07/21 01/08/21 01/09/21 01/10/21 23:59 23:59 23:59 23:59 Intake Total 640 770 800 450 Output Total 500 875 900 Balance 140 -105 800 -450 Meds/Results Medications: Active Medications Generic Name Dose Route Start Last Admin Trade Name Freq PRN Reason Stop Dose Admin Acetaminophen 650 mg 01/06/21 11:11 01/07/21 12:48 Acetaminophen 325 Mg Tablet PO 650 mg Q6H PRN Administration Pain Rate
[2021-01-10 14:00] VITALS: BP 144/52; PULSE 76; RESP 18; TEMP 36.7; O2SAT 97
[2021-01-10 16:42] LABS: Glucose Point of Care 91 mg/dl (65-105)
[2021-01-10] MEDS: diphenhydrAMINE HCl CAP 25 MG CAPSULE PO (17:15)
[2021-01-10 20:30] VITALS: O2SAT 96
[2021-01-10] MEDS: INSULIN GLARGINE (*BKC) 100 UNITS/ML 6 UNITS SUB-Q (20:55)
[2021-01-10 20:56] LABS: Glucose Point of Care 130 mg/dl (65-105)
[2021-01-10] MEDS: ATORVASTATIN 20 MG TABLET PO (20:56)
[2021-01-10 22:00] VITALS: BP 137/53; PULSE 74; RESP 18; TEMP 36.2; O2SAT 97
[2021-01-11] VITALS (19 sets, daily range): BP systolic 116–149; BP diastolic 51–72; PULSE 71–81; RESP 16–18; TEMP 36.1–37.2; O2SAT 92–99
[2021-01-11] MEDS: HYDROcodone/acetaminophen (*CRX) 5-325 MG TABLET 1 TAB PO ×2 (04:08→14:45)
[2021-01-11 05:55] LABS: Hematocrit 26.5 % (37.0-47.0); Hemoglobin 8.1 g/dL (12.0-15.0); Mean Corpuscular HGB Conc 30.6 g/dl (32-36); Mean Corpuscular Hemoglobin 32.9 pg (26-34); Mean Corpuscular Volume 107.7 fl (80-100); Mean Platelet Volume 10.5 fl (7.4-10.4); Platelet Count Result 292 k/mm3 (150-375); Red Blood Count 2.46 M/mm3 (4.2-5.4); Red Cell Distribution Width 15.9 % (11.5-14.5); White Blood Count 9.2 K/mm3 (4.5-10.0)
[2021-01-11 06:04] LABS: Anion Gap 9 mmol/L (8-16); Blood Urea Nitrogen 34 mg/dL (7-17); Calcium 9.4 mg/dL (8.4-10.2); Carbon Dioxide 28 mmol/L (22-30); Chloride 96 mmol/L (98-107); Estimated CRCL calculation 11 ml/min; Estimated Glomerular Filt Rate 8; Glucose 72 mg/dL (65-110); Sodium 133 mmol/L (137-145)
[2021-01-11 06:10] LABS: Albumin Level 2.9 g/dL (3.5-5.1); Anion Gap 8 mmol/L (8-16); Blood Urea Nitrogen 34 mg/dL (7-17); Calcium 9.5 mg/dL (8.4-10.2); Carbon Dioxide 28 mmol/L (22-30); Chloride 97 mmol/L (98-107); Estimated CRCL calculation 11 ml/min; Estimated Glomerular Filt Rate 9; Glucose 72 mg/dL (65-110); Sodium 133 mmol/L (137-145)
[2021-01-11 08:14] LABS: Glucose Point of Care 66 mg/dl (65-105)
[2021-01-11 08:14] LABS: Glucose Point of Care 93 mg/dl (65-105)
[2021-01-11] MEDS: LIDOCAINE 5% PATCH 1 PATCH TOPICAL (08:25)
[2021-01-11] MEDS: SODIUM CHLORIDE 0.9% IV 1,000 ML 100 ML IV CONT (09:15)
--- NOTE | 2021-01-11 09:52 | PC.NURSE ---
Patient to dialysis per bed.
--- NOTE | 2021-01-11 09:59 | PM.PNORT ---
Progress Note: A&P Assessment and Plan (1) Status post below knee amputation of right lower extremity: Code(s): Z89.511 - Acquired absence of right leg below knee Status: Acute Assessment and Plan: POD #5: Right BKA. Patient answering questions appropriately this AM. Pain improved. Appreciate hospitalist consult for medical management. 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 HD today, // schedule. IV vancomycin. Low albumin, stable today from yesterday at 2.9. Patient has dietary supplements. Wound VAC dressing changed yesterday. Incision clean dry and intact with no signs of dehiscence or breakdown. No signs of skin necrosis. Subjective Subjective Date/Time Seen: 01/11/21 09:59 Post Op day: 5 (Right BKA ) Interval history: POD #5: Right BKA No new complaints. Plan for HD today. Pain well controlled. Review of Systems Constitutional: Constitutional: Reports no additional constitutional complaints, Denies chills, Denies fatigue, Denies fever(s), Denies headache(s) and Denies weakness Eyes: Eyes: Denies change in vision ENT: Reports Normal hearing present and Denies headache(s) Cardiovascular: Cardiovascular: Denies chest pain, Reports pedal edema and Reports edema Respiratory: Respiratory: Denies cough, Denies dyspnea and Denies wheezing Gastrointestinal: Gastrointestinal: Denies constipation, Denies diarrhea, Denies nausea and Denies vomiting Genitourinary: Genitourinary: Reports no additional female genitourinary complaints Musculoskeletal: Musculoskeletal: Reports as per HPI, Reports numbness, Reports tingling and Reports other (decreased sensation b/l LE ) Integumentary/Breasts: Skin/Breast: Reports as per HPI Neurologic: Reports as per HPI, Reports Normal hearing present and Denies headache(s) Psychiatric: Psychiatric: Reports no additional psychiatric complaints Endocrine: Endocrine: Reports no additional endocrine complaints and Denies fatigue Hematologic/Lymphatic: Hematologic/Lymphatic: Reports no additional hematologic/lymphatic complaints Allergic/Immunologic: Allergic/Immunologic: Reports no additional allergic/immunologic complaints and Denies wheezing Exam Const: General: comfortable and no acute distress Resp: Effort & Inspection: normal respiratory effort GI: Inspection: non-distended GI Palp: Yes Soft to palpation and No Tenderness to palpation present (GI) Skin: Wounds: wounds noted (Dressing right heel ) Neuro: Cognition (Neuro): normal cognition (confusion to situation ) Extrem: Right lower extremity: knee Details: other (Transtibial amputation. Wound VAC in place. Edema improved.) Left lower extremity: lower leg Details: non-pitting edema Details: 2+, ankle Details: no tenderness, no swelling and no warmth and foot (Moves toes. Minimal sensation at baseline. ) Details: motor-sensory exam light-touch abnormal in all toes Other: Psych: Mental Status: mental status grossly normal Thought content: Yes Normal thought content present Objective Data Vital Signs Vital Signs: Vital Signs - 24 hr 01/10/21 14:00 01/10/21 20:30 01/10/21 22:00 Temperature 36.7 C 36.2 C L Pulse Rate 76 74 Respiratory Rate 18 18 Blood Pressure 144/52 H 137/53 L Pulse Oximetry 97 96 97 01/11/21 06:00 Temperature 36.5 C Pulse Rate 71 Respiratory Rate 18 Blood Pressure 149/51 H Pulse Oximetry 98 Intake/Output Intake/Output: Intake & Output 01/08/21 01/09/21 01/10/21 01/11/21 23:59 23:59 23:59 23:59 Intake Total 770 593 426 4750 Output Total 875 900 Balance -105 355 30 5126 Meds/Results Medications: Active Medications Generic Name Dose Route Start Last Admin Trade Name Freq PRN Reason Stop Dose Admin Acetaminophen 650 mg 01/06/21 11:11 01/07/21 12:48 Acetaminophen 325 Mg Tablet PO 650 mg Q6H PRN Administration Pain Rated 1-3 or fever Hydrocodone Bitart/Acetaminophen 1 tab 01/06/21 11:11 01/11/21 04:08 Hydrocodone/Acetaminoph
--- NOTE | 2021-01-11 11:22 | PCOTNOTE ---
Attempted to see patient this am, however patient was off floor for dialysis at this time.
--- NOTE | 2021-01-11 11:32 | P.PNIM_ITS ---
Progress Note: A&P Assessment and Plan (1) Osteomyelitis of foot, right, acute: Code(s): M86.171 - Other acute osteomyelitis, right ankle and foot Status: Acute Assessment and Plan: Involving right 2nd through 5th metatarsal bases, cuboid and lateral cuneiform bones * Now s/p right BKA on 01/06/[address] Varma for definitive management. Care per orthopedic surgery. * Continue PO doxycycline and IV vancomycin, renally dosed per pharmacy * Eliquis held perioperatively. Will resume this evening * Analgesics available as needed * PT/OT (2) Status post below knee amputation of right lower extremity: Code(s): Z89.511 - Acquired absence of right leg below knee Status: Acute Assessment and Plan: See above (3) End-stage renal disease on hemodialysis: Code(s): N18.6 - End stage renal disease; Z99.2 - Dependence on renal dialysis Status: Chronic Assessment and Plan: On hemodialysis Sunday * Nephrology is following for dialysis management * Plan for dialysis this afternoon (4) Insulin dependent type 2 diabetes mellitus: Code(s): E11.9 - Type 2 diabetes mellitus without complications; 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 Blood sugars have been well controlled. She did have an episode of hypoglycemia this morning that resolved promptly with drinking juice. * Continue with Accu-Cheks, sliding scale insulin, hypoglycemic protocol * She has had decreased p.o. intake leading to hypoglycemia this morning. Will discontinue long-acting insulin. Encourage adequate p.o. intake * Monitor glucose trends and adjust medication regimen as needed (5) Grade II diastolic dysfunction: Code(s): I51.9 - Heart disease, unspecified Status: Chronic Assessment and Plan: She appears clinically compensated at this time. * Monitor volume status closely * Heart healthy diet * She is euvolemic on exam. (6) Hypertension: Onset Date: Unknown Qualifiers: Hypertension type: essential hypertension Qualified Code(s): I10 - Essential (primary) hypertension Code(s): I10 - Essential (primary) hypertension Status: Chronic Assessment and Plan: Blood pressures have been stable. Last BP 129/58 * Home antihypertensives (amlodipine and carvedilol) are on hold as BP had been soft. BP is relatively stable at this time off medications. Continue to monitor overall trends closely and resume antihypertensives as needed if BP begins to rise (7) Chronic anemia: Code(s): D64.9 - Anemia, unspecified Status: Acute Assessment and Plan: Secondary to ESRD. Hemoglobin and hematocrit are at baseline on review of prior labs * Continue to monitor CBC * Continue with Retacrit 3x weekly (8) Community acquired pneumonia: Code(s): J18.9 - Pneumonia, unspecified organism Status: Acute Assessment and Plan: She was requiring supplemental oxygen, therefore CXR obtained to evaluate for underlying etiologies which did demonstrate right lower lobe airspace disease compatible with pneumonia. She did have leukocytosis that has resolved with treatment * She is on doxycycline for osteomyelitis management. Added IV Rocephin for CAP coverage * Aspiration considered given location, however no evidence to suggest aspiration, no dysphagia * COVID-19 pneumonia unlikely given distribution on CXR and clinical symptoms. She completed COVID vac
--- NOTE | 2021-01-11 11:32 | PM.IMPN ---
Progress Note: A&P Assessment and Plan (1) Osteomyelitis of foot, right, acute: Code(s): M86.171 - Other acute osteomyelitis, right ankle and foot Status: Acute Assessment and Plan: Involving right 2nd through 5th metatarsal bases, cuboid and lateral cuneiform bones Now s/p right BKA on 01/06/[address] Varma for definitive management. Care per orthopedic surgery. Continue PO doxycycline and IV vancomycin, renally dosed per pharmacy Eliquis held perioperatively. Will resume this evening Analgesics available as needed PT/OT (2) Status post below knee amputation of right lower extremity: Code(s): Z89.511 - Acquired absence of right leg below knee Status: Acute Assessment and Plan: See above (3) End-stage renal disease on hemodialysis: Code(s): N18.6 - End stage renal disease; Z99.2 - Dependence on renal dialysis Status: Chronic Assessment and Plan: On hemodialysis Sunday Nephrology is following for dialysis management Plan for dialysis this afternoon (4) Insulin dependent type 2 diabetes mellitus: Code(s): E11.9 - Type 2 diabetes mellitus without complications; 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 Blood sugars have been well controlled. She did have an episode of hypoglycemia this morning that resolved promptly with drinking juice. Continue with Accu-Cheks, sliding scale insulin, hypoglycemic protocol She has had decreased p.o. intake leading to hypoglycemia this morning. Will discontinue long-acting insulin. Encourage adequate p.o. intake Monitor glucose trends and adjust medication regimen as needed (5) Grade II diastolic dysfunction: Code(s): I51.9 - Heart disease, unspecified Status: Chronic Assessment and Plan: She appears clinically compensated at this time. Monitor volume status closely Heart healthy diet She is euvolemic on exam. (6) Hypertension: Onset Date: Unknown Qualifiers: Hypertension type: essential hypertension Qualified Code(s): I10 - Essential (primary) hypertension Code(s): I10 - Essential (primary) hypertension Status: Chronic Assessment and Plan: Blood pressures have been stable. Last BP 129/58 Home antihypertensives (amlodipine and carvedilol) are on hold as BP had been soft. BP is relatively stable at this time off medications. Continue to monitor overall trends closely and resume antihypertensives as needed if BP begins to rise (7) Chronic anemia: Code(s): D64.9 - Anemia, unspecified Status: Acute Assessment and Plan: Secondary to ESRD. Hemoglobin and hematocrit are at baseline on review of prior labs Continue to monitor CBC Continue with Retacrit 3x weekly (8) Community acquired pneumonia: Code(s): J18.9 - Pneumonia, unspecified organism Status: Acute Assessment and Plan: She was requiring supplemental oxygen, therefore CXR obtained to evaluate for underlying etiologies which did demonstrate right lower lobe airspace disease compatible with pneumonia. She did have leukocytosis that has resolved with treatment She is on doxycycline for osteomyelitis management. Added IV Rocephin for CAP coverage Aspiration considered given location, however no evidence to suggest aspiration, no dysphagia COVID-19 pneumonia unlikely given distribution on CXR and clinical symptoms. She completed COVID vaccination in May. Continue with supplemental O2 as needed with goal saturation 92% or above. Wean supplemental O2 to goal. She has required up to 3 L per nasal cannula. She is maintaining adequate O2 sats on room air today. Supportive care to include bronchodilators, expectorants, antipyretics, incentive spirometry. She has required supplemental oxygen frequently during previous hospitalizations, and she may be at a poi
[2021-01-11] MEDS: EPOETIN ALFA-EPBX 10,000 UNITS/ML VIAL 10000 UNITS IV PUSH (12:28)
--- NOTE | 2021-01-11 13:21 | PM.PNNEP ---
Progress Note: A&P Assessment and Plan (1) End stage renal disease: Code(s): N18.6 - End stage renal disease Status: Chronic Assessment and Plan: Patient has end-stage renal disease. volume status looks good. Potassium and bicarbonate are fine. Getting her dialysis now. (2) Status post below knee amputation of right lower extremity: Code(s): Z89.511 - Acquired absence of right leg below knee Status: Acute Assessment and Plan: The patient Has some postoperative pain but it is gradually improved. She has a wound VAC on. (3) Anemia: Code(s): D64.9 - Anemia, unspecified Status: Chronic Assessment and Plan: Hemoglobin is bouncing around in the sevens. She is getting Epo with dialysis (4) Hypertension: Code(s): I10 - Essential (primary) hypertension Status: Acute Assessment and Plan: Blood pressure is under good control The last systolic was in the 140s. She is on amlodipine carvedilol generally, but both are on hold. 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 Has wound VAC on her stump. Patient has some discomfort there but gets better every day She is on dialysis and tolerating it well. She was seen at 12:45 p.m. Exam Narrative: WDWN in NAD skin no rash or subQ nodules head ncat lungs clear cor reg no rub abd BS+ nontender and soft ext no edema. Right lower extremity [id number] amputation. Objective Data Vital Signs Vital Signs: Vital Signs - 24 hr 01/10/21 14:00 01/10/21 20:30 01/10/21 22:00 Temperature 36.7 C 36.2 C L Pulse Rate 76 74 Respiratory Rate 18 18 Blood Pressure 144/52 H 137/53 L Pulse Oximetry 97 96 97 01/11/21 06:00 01/11/21 09:58 01/11/21 10:08 Temperature 36.5 C 36.8 C Pulse Rate 71 73 73 Respiratory Rate 18 18 Blood Pressure 149/51 H 137/69 137/69 Pulse Oximetry 98 01/11/21 10:15 01/11/21 10:30 01/11/21 10:45 Temperature Pulse Rate 73 73 72 Respiratory Rate Blood Pressure 143/68 H 123/61 132/67 Pulse Oximetry 01/11/21 11:00 01/11/21 11:15 01/11/21 11:30 Temperature Pulse Rate 75 73 77 Respiratory Rate Blood Pressure 123/62 130/66 129/58 L Pulse Oximetry 01/11/21 11:45 01/11/21 12:00 01/11/21 12:20 Temperature Pulse Rate 73 75 73 Respiratory Rate Blood Pressure 138/67 133/63 121/56 L Pulse Oximetry 01/11/21 12:30 01/11/21 12:45 Temperature Pulse Rate 73 73 Respiratory Rate Blood Pressure 137/65 140/69 Pulse Oximetry Intake/Output Intake/Output: Intake & Output 01/08/21 01/09/21 01/10/21 01/11/21 23:59 23:59 23:59 23:59 Intake Total 770 269 597 2119 Output Total 875 900 Balance -105 134 10 2103 Meds/Results Medications: Active Medications Generic Name Dose Route Start Last Admin Trade Name Freq PRN Reason Stop Dose Admin Acetaminophen 650 mg 01/06/21 11:11 01/07/21 12:48 Acetaminophen 325 Mg Tablet PO 650 mg Q6H PRN Administration Pain Rated 1-3 or fever Hydrocodone Bitart/Acetaminophen 1 tab 01/06/21 11:11 01/11/21 04:08 Hydrocodone/Acetaminophen (*Crx) 5-325 Mg Tablet PO 1 tab Q3H PRN Administration Pain Rated 4-6 Albuterol 2.5
[2021-01-11 13:43] LABS: Glucose Point of Care 84 mg/dl (65-105)
[2021-01-11] MEDS: SACCHAROMYCES BOULARDII 250 MG CAPSULE PO ×2 (13:49→17:04)
[2021-01-11] MEDS: DOCUSATE SODIUM 100 MG CAPSULE PO ×3 (13:49→20:38)
[2021-01-11] MEDS: allopurinoL 100 MG TABLET PO (13:49)
[2021-01-11] MEDS: buPROPion HCL XL (24 HR) 150 MG TABCR PO (13:49)
[2021-01-11] MEDS: DOXYCYCLINE HYCLATE 100 MG TABLET PO ×2 (13:49→20:38)
[2021-01-11] MEDS: FAMOTIDINE 20 MG TABLET PO (13:49)
[2021-01-11] MEDS: guaiFENesin 12 HR 600 MG TABCR PO ×2 (13:49→20:38)
--- NOTE | 2021-01-11 15:57 | PC.NURSE ---
On 01/11/21, the student, [Teena Freitas ], provided care and completed [facility] documentation on this patient. I have reviewed the student's documentation and agree with the findings.
[2021-01-11] MEDS: diphenhydrAMINE HCl CAP 25 MG CAPSULE PO (17:04)
[2021-01-11] MEDS: APIXABAN 2.5 MG TABLET PO (17:04)
[2021-01-11 18:24] LABS: Glucose Point of Care 181 mg/dl (65-105)
[2021-01-11] MEDS: ATORVASTATIN 20 MG TABLET PO (20:37)
[2021-01-11 20:50] LABS: Vancomycin Random 13.5 ug/mL (10-20)
[2021-01-11 21:20] LABS: Glucose Point of Care 172 mg/dl (65-105)
[2021-01-12 05:43] VITALS: BP 128/61; PULSE 77; RESP 20; TEMP 36.3; O2SAT 92
[2021-01-12 05:43] LABS: Hematocrit 26.3 % (37.0-47.0); Mean Corpuscular HGB Conc 30.4 g/dl (32-36); Mean Corpuscular Hemoglobin 32.8 pg (26-34); Mean Corpuscular Volume 107.8 fl (80-100); Mean Platelet Volume 10.4 fl (7.4-10.4); Platelet Count Result 267 k/mm3 (150-375); Red Blood Count 2.44 M/mm3 (4.2-5.4); Red Cell Distribution Width 15.9 % (11.5-14.5); White Blood Count 7.5 K/mm3 (4.5-10.0)
[2021-01-12 05:50] LABS: Anion Gap 6 mmol/L (8-16); Blood Urea Nitrogen 31 mg/dL (7-17); Calcium 8.9 mg/dL (8.4-10.2); Carbon Dioxide 31 mmol/L (22-30); Chloride 98 mmol/L (98-107); Estimated CRCL calculation 15 ml/min; Estimated Glomerular Filt Rate 12; Glucose 130 mg/dL (65-110); Sodium 135 mmol/L (137-145)
[2021-01-12 07:56] LABS: Glucose Point of Care 142 mg/dl (65-105)
[2021-01-12 08:39] VITALS: BP 176/59; PULSE 77; RESP 18; TEMP 36.3; O2SAT 100
[2021-01-12] MEDS: guaiFENesin 12 HR 600 MG TABCR PO (10:13)
[2021-01-12] MEDS: DOXYCYCLINE HYCLATE 100 MG TABLET PO (10:16)
[2021-01-12] MEDS: allopurinoL 100 MG TABLET PO (10:17)
[2021-01-12] MEDS: DOCUSATE SODIUM 100 MG CAPSULE PO (10:18)
[2021-01-12] MEDS: buPROPion HCL XL (24 HR) 150 MG TABCR PO (10:19)
[2021-01-12] MEDS: APIXABAN 2.5 MG TABLET PO (10:21)
[2021-01-12] MEDS: FAMOTIDINE 20 MG TABLET PO (10:23)
[2021-01-12] MEDS: diphenhydrAMINE HCl CAP 25 MG CAPSULE PO (10:25)
[2021-01-12] MEDS: SACCHAROMYCES BOULARDII 250 MG CAPSULE PO (10:25)
[2021-01-12] MEDS: polyethylene glycoL 3350 17 GM POWD.PACK PO (10:31)
[2021-01-12] MEDS: LIDOCAINE 5% PATCH 1 PATCH TOPICAL (10:32)
[2021-01-12 11:51] LABS: Glucose Point of Care 147 mg/dl (65-105)
--- NOTE | 2021-01-12 12:06 | PM.PNNEP ---
Progress Note: A&P Assessment and Plan (1) End stage renal disease: Code(s): N18.6 - End stage renal disease Status: Chronic Assessment and Plan: Patient has end-stage renal disease. the patient is euvolemic. Potassium and bicarbonate are under good control dialysis will be done tomorrow (2) Status post below knee amputation of right lower extremity: Code(s): Z89.511 - Acquired absence of right leg below knee Status: Acute Assessment and Plan: The patient Has some postoperative pain but it is gradually improved. She has a wound VAC on. (3) Anemia: Code(s): D64.9 - Anemia, unspecified Status: Chronic Assessment and Plan: Hemoglobin is bouncing around in the sevens. She is getting Epo with dialysis (4) Hypertension: Code(s): I10 - Essential (primary) hypertension Status: Acute Assessment and Plan: Blood pressure is under good control blood pressure seemed to be doing pretty well. Her last 1 was 176/59. If this keeps up we can restart her carvedilol. She is on amlodipine carvedilol generally, but both are on hold. (5) Diabetes: Qualifiers: Diabetes mellitus type: type 2 Diabetes mellitus group home insulin use: with group home use Diabetes mellitus complication status: with kidney complications Diabetes mellitus complication detail: with chronic kidney disease Chronic kidney disease stage: on chronic dialysis Qualified Code(s): E11.22 - Type 2 diabetes mellitus with diabetic chronic kidney disease; N18.6 - End stage renal disease; Z79.4 - assisted (current) use of insulin; Z99.2 - Dependence on renal dialysis Code(s): E11.9 - Type 2 diabetes mellitus without complications Status: Acute Assessment and Plan: On Accu-Cheks and sliding-scale insulin Subjective Date/time seen: 01/12/21 12:06 Interval history: Kelley is lying in bed. She is trying to eat her breakfast but it is cold and she does not like it. She is asking when she can get out of bed or at least sit at the side of the bed. I told her that she should ask the orthopedic surgeon. Has wound VAC on her stump. Exam Narrative: WDWN in NAD skin no rash or subQ nodules head ncat lungs clear bilaterally cor reg no rub or gallop abd BS+ nontender and soft ext no edema. Right lower extremity [id number] amputation. Objective Data Vital Signs Vital Signs: Vital Signs - 24 hr 01/11/21 12:20 01/11/21 12:30 01/11/21 12:45 Temperature Pulse Rate 73 73 73 Respiratory Rate Blood Pressure 121/56 L 137/65 140/69 Pulse Oximetry 01/11/21 13:08 01/11/21 13:20 01/11/21 14:35 Temperature 36.6 C 36.6 C Pulse Rate 72 73 75 Respiratory Rate 16 16 Blood Pressure 138/64 135/66 116/57 L Pulse Oximetry 99 01/11/21 20:32 01/11/21 21:34 01/12/21 05:43 Temperature 36.1 C L 36.3 C L Pulse Rate 81 77 Respiratory Rate 18 20 Blood Pressure 147/72 H 128/61 Pulse Oximetry 92 97 92 01/12/21 08:39 Temperature 36.3 C L Pulse Rate 77 Respiratory Rate 18 Blood Pressure 176/59 H Pulse Oximetry 100 Intake/Output Intake/Output: Intake & Output 01/09/21 01/10/21 01/11/21 01/12/21 23:59 23:59 23:59 23:59 Intake Total 985 719 7427 650 Output Total 900 3300 Balance 800 30 -1540 650 Meds/Results Medications: Active Medications Generic Name Dose Route Start Last Admin Trade Name Freq PRN Reason Stop Dose Admin Acetaminophen 650 mg 01/06/21 11:11 01/07/21 12:48 Acetaminophen 325 Mg Tablet PO 650 mg Q6H PRN Administration Pain Rated 1-3 or fever Hydrocodone Bitart/Acetaminophen 1 tab 01/06/21 11:11 01/11/21 14:45 Hydrocodone/Acetaminophen (*Crx) 5-325 Mg Tablet PO 1 tab Q3H PRN Administration Pain Rated 4-6 Albuterol 2.5 mg 01/07/21 10:42 Albuterol Sulfate Neb 2.5 Mg/0.5 Ml Inh INHALATION Q6HRT PRN Shortness Of Breath Allopurinol 100 mg
--- NOTE | 2021-01-12 12:06 | PM.IMPN ---
Progress Note: A&P Assessment and Plan (1) Osteomyelitis of foot, right, acute: Code(s): M86.171 - Other acute osteomyelitis, right ankle and foot Status: Acute Assessment and Plan: Involving right 2nd through 5th metatarsal bases, cuboid and lateral cuneiform bones Now s/p right BKA on 01/06/[address] Varma for definitive management. Care per orthopedic surgery. Continue PO doxycycline and IV vancomycin, renally dosed per pharmacy Analgesics available as needed PT/OT (2) Status post below knee amputation of right lower extremity: Code(s): Z89.511 - Acquired absence of right leg below knee Status: Acute Assessment and Plan: See above (3) End-stage renal disease on hemodialysis: Code(s): N18.6 - End stage renal disease; Z99.2 - Dependence on renal dialysis Status: Chronic Assessment and Plan: On hemodialysis Sunday Nephrology is following for dialysis management (4) Insulin dependent type 2 diabetes mellitus: Code(s): E11.9 - Type 2 diabetes mellitus without complications; 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 Blood sugars have been well controlled. No further episodes of hypoglycemia. Continue with Accu-Cheks, sliding scale insulin, hypoglycemic protocol Long-acting insulin discontinued due to hypoglycemia from poor p.o. intake. Monitor glucose trends and adjust medication regimen as needed (5) Grade II diastolic dysfunction: Code(s): I51.9 - Heart disease, unspecified Status: Chronic Assessment and Plan: She appears clinically compensated at this time. Monitor volume status closely Heart healthy diet She is euvolemic on exam. (6) Hypertension: Onset Date: Unknown Qualifiers: Hypertension type: essential hypertension Qualified Code(s): I10 - Essential (primary) hypertension Code(s): I10 - Essential (primary) hypertension Status: Chronic Assessment and Plan: Blood pressures have been stable. She did have an isolated elevated blood pressure reading at 176/59. Home antihypertensives (amlodipine and carvedilol) are on hold as BP was initially soft. BP is relatively stable at this time off medications. Continue to monitor overall trends closely and resume antihypertensives as needed if BP remains elevated (7) Chronic anemia: Code(s): D64.9 - Anemia, unspecified Status: Acute Assessment and Plan: Secondary to ESRD. Hemoglobin and hematocrit are at baseline on review of prior labs Continue to monitor CBC Continue with Retacrit 3x weekly (8) Community acquired pneumonia: Code(s): J18.9 - Pneumonia, unspecified organism Status: Acute Assessment and Plan: She was requiring supplemental oxygen, therefore CXR obtained to evaluate for underlying etiologies which did demonstrate right lower lobe airspace disease compatible with pneumonia. She did have leukocytosis that has resolved with treatment She is on doxycycline for osteomyelitis management. Added IV Rocephin for CAP coverage, dose #5. Continue with supplemental O2 as needed with goal saturation 92% or above. Wean supplemental O2 to goal. She has required up to 3 L per nasal cannula. She is maintaining adequate O2 sats on room air today. Supportive care to include bronchodilators, expectorants, antipyretics, incentive spirometry. She has required supplemental oxygen frequently during previous hospitalizations, and she may be at a point where she is requiring home oxygen. She will need a home O2 eval prior to discharge given her O2 requirements. (9) Nausea and vomiting: Code(s): R11.2 - Nausea with vomiting, unspecified Status: Acute Assessment and Plan: Resolved. Etiology for this is unclear. P.o. intake has improved Lipase within normal limits Possibly
--- NOTE | 2021-01-12 12:58 | PM.PNORT ---
Progress Note: A&P Assessment and Plan (1) Status post below knee amputation of right lower extremity: Code(s): Z89.511 - Acquired absence of right leg below knee Status: Acute Assessment and Plan: POD #6: Right BKA. Pain improved. Appreciate hospitalist consult for medical management. Appreciate seismic computer. HD Yesterday. IV vancomycin. plan discontinue time of discharge. Low albumin, stable today from yesterday at 2.9. Patient has dietary supplements. Wound VAC dressing changed Today. Incision clean dry and intact with no signs of dehiscence or breakdown. No signs of skin necrosis. discharged to [facility] when stable. May restart Eliquis. Subjective Subjective Date/Time Seen: 01/12/21 12:58 Post Op day: 6 Principal diagnosis: right below-knee amputation Interval history: no interim complaints. Dialysis yesterday. Wound VAC dressing removed today. Review of Systems Constitutional: Constitutional: Reports no additional constitutional complaints, Denies chills, Denies fatigue, Denies fever(s), Denies headache(s) and Denies weakness Eyes: Eyes: Denies change in vision ENT: Reports Normal hearing present and Denies headache(s) Cardiovascular: Cardiovascular: Denies chest pain, Reports pedal edema and Reports edema Respiratory: Respiratory: Denies cough, Denies dyspnea and Denies wheezing Gastrointestinal: Gastrointestinal: Denies constipation, Denies diarrhea, Denies nausea and Denies vomiting Genitourinary: Genitourinary: Reports no additional female genitourinary complaints Musculoskeletal: Musculoskeletal: Reports as per HPI, Reports numbness, Reports tingling and Reports other (decreased sensation b/l LE ) Integumentary/Breasts: Skin/Breast: Reports as per HPI Neurologic: Reports as per HPI, Reports Normal hearing present and Denies headache(s) Psychiatric: Psychiatric: Reports no additional psychiatric complaints Endocrine: Endocrine: Reports no additional endocrine complaints and Denies fatigue Hematologic/Lymphatic: Hematologic/Lymphatic: Reports no additional hematologic/lymphatic complaints Allergic/Immunologic: Allergic/Immunologic: Reports no additional allergic/immunologic complaints and Denies wheezing Exam Const: General: comfortable and no acute distress Resp: Effort & Inspection: normal respiratory effort GI: Inspection: non-distended GI Palp: Yes Soft to palpation and No Tenderness to palpation present (GI) Skin: Wounds: wounds noted (Dressing right heel ) Neuro: Cognition (Neuro): normal cognition (confusion to situation ) Extrem: Right lower extremity: knee Details: other (Transtibial amputation. Wound VAC in place. Edema improved.) Left lower extremity: lower leg Details: non-pitting edema Details: 2+, ankle Details: no tenderness, no swelling and no warmth and foot (Moves toes. Minimal sensation at baseline. ) Details: motor-sensory exam light-touch abnormal in all toes Other: Wound VAC dressing removed. Incision clean dry and intact. No areas of breakdown or open necrosis. Psych: Mental Status: mental status grossly normal Thought content: Yes Normal thought content present Objective Data Vital Signs Vital Signs: Vital Signs - 24 hr 01/11/21 13:08 01/11/21 13:20 01/11/21 14:35 Temperature 98 F 97.8 F Pulse Rate 72 73 75 Respiratory Rate 16 16 Blood Pressure 138/64 135/66 116/57 L Pulse Oximetry 99 01/11/21 20:32 01/11/21 21:34 01/12/21 05:43 Temperature 96.9 F L 97.3 F L Pulse Rate 81 77 Respiratory Rate 18 20 Blood Pressure 147/72 H 128/61 Pulse Oximetry 92 97 92 01/12/21 08:39 Temperature 97.4 F L Pulse Rate 77 Respiratory Rate 18 Blood Pressure 176/59 H Pulse Oximetry 100 Intake/Output Intake/Output: Intake & Output 01/09/21 01/10/21 01/11/21 01/12/21 23:59 23:59 23:59 23:59 Intake Total 032 959 9396 650 Output Total 900 3300 Balance 800 30 -1540 650 Meds/Results Medications: Acti
[2021-01-12 14:00] VITALS: BP 132/41; PULSE 80; RESP 18; TEMP 37.2; O2SAT 100
--- NOTE | 2021-01-14 09:31 | PM.DS ---
DS: Admitting Diagnosis Discharge Date 01/12/21 Admitting Diagnosis Right foot osteomyelitis, diabetic foot ulcer DS: Discharge Diagnosis Discharge Diagnosis (1) Status post below knee amputation of right lower extremity: Code(s): Z89.511 - Acquired absence of right leg below knee Status: Acute (2) End-stage renal disease on hemodialysis: Code(s): N18.6 - End stage renal disease; Z99.2 - Dependence on renal dialysis Status: Chronic (3) Insulin dependent type 2 diabetes mellitus: Code(s): E11.9 - Type 2 diabetes mellitus without complications; Z79.4 - retirement (current) use of insulin Status: Chronic (4) Peripheral arterial disease: Onset Date: Unknown Code(s): I73.9 - Peripheral vascular disease, unspecified Status: Acute DS: Summary Hospital Course Reason for hospitalization: right foot osteomyelitis Hospital Course: patient admitted and taken to the operating room on January 06 2021 for right below-knee amputation. Patient tolerated the procedure with noted blood loss approximately 600 cc. Patient admitted to the floor postoperatively for medical management and postoperative care. Hospitalist consult for medical management including diabetes, coronary artery disease, hypertension, peripheral artery disease, renal failure. Nephrology consult for continued hemodialysis with chronic renal failure. Patient followed a relatively routine postoperative course with no noted complications. Physical therapy and occupational therapy for assistance with transfers and ADLs. Wound VAC dressing was applied at the time of surgery. This was changed on postoperative day 4. And 6. Patient received hemodialysis and then was placed back on routine hemodialysis schedule of Sunday, , Saturdays. Postoperative day 6 patient was medically stable and cleared for discharge to senior care. Status at Discharge Cognitive/behavioral status at discharge: Alert and oriented x3 Functional status at discharge: wheelchair bound Overall status at discharge: patient is not back to baseline Time Spent with Patient Time attestation: Total time spent providing and/or coordinating discharge services: Exam Const: General: comfortable and no acute distress Resp: Effort & Inspection: normal respiratory effort GI: Inspection: non-distended GI Palp: Yes Soft to palpation and No Tenderness to palpation present (GI) Skin: Wounds: wounds noted (Dressing right heel ) Neuro: Cognition (Neuro): normal cognition (confusion to situation ) Extrem: Right lower extremity: knee Details: other (Transtibial amputation. Wound VAC in place. Edema improved.) Left lower extremity: lower leg Details: non-pitting edema Details: 2+, ankle Details: no tenderness, no swelling and no warmth and foot (Moves toes. Minimal sensation at baseline. ) Details: motor-sensory exam light-touch abnormal in all toes Other: Wound VAC dressing removed. Incision clean dry and intact. No areas of breakdown or open necrosis. new wound VAC dressing applied. Psych: Mental Status: mental status grossly normal Thought content: Yes Normal thought content present DS: Data Data Completed and Pending Completed studies during hospitalization: Pending at discharge 01/06/21 09:59 Surgical [PTH] Routine Discharge Plan Discharge Attending physician on discharge: Rios Varma Consulting providers: Sandra Jorge ; Alon Carcamo ; Narciso Garcia Discharging Clinician: Rios Varma Patient Disposition: SNF Activity: may shower Diet: diabetic Wound Care Instructions: other - see discharge instructions Discharge Instructions: wound VAC dressing right leg to be changed Q 48 to 72 hours. Nonweightbearing right leg. Weight bear as tolerated left leg. Out of bed p.r.n.. Wound Vac Instructions: Settings: -150mmHg low continuous pressure. Place wound vac drape up to the incision line, then
== END 2021-01-12 16:42 | DRG 616 ==
LOC: ANH2MED 13:36
PROVIDERS: Internal Medicine; Internal Medicine Nephrology; Physician Assistant; Admitting Provider Orthopaedic Surgery; PCP Internal Medicine; Visit Provider Orthopaedic Surgery
PROC: 0Y6H0Z1 Detachment at Right Lower Leg, High, Open Approach (ICD-10-PCS; CPT 27882; principal; 2021-01-06 09:30)
DX: E11.69 Type 2 diabetes mellitus with other specified complication (principal); J18.9 Pneumonia, unspecified organism; I12.0 Hypertensive chronic kidney disease with stage 5 chronic kidney disease or end stage renal disease; I69.354 Hemiplegia and hemiparesis following cerebral infarction affecting left non-dominant side; M86.171 Other acute osteomyelitis, right ankle and foot; L97.414 Non-pressure chronic ulcer of right heel and midfoot with necrosis of bone; E11.621 Type 2 diabetes mellitus with foot ulcer; Z79.4 Long term (current) use of insulin; E11.22 Type 2 diabetes mellitus with diabetic chronic kidney disease; N18.6 End stage renal disease; F41.9 Anxiety disorder, unspecified; F32.A Depression, unspecified; I87.8 Other specified disorders of veins; E11.43 Type 2 diabetes mellitus with diabetic autonomic (poly)neuropathy; K31.84 Gastroparesis; K21.9 Gastro-esophageal reflux disease without esophagitis; M10.9 Gout, unspecified; E78.5 Hyperlipidemia, unspecified; I27.20 Pulmonary hypertension, unspecified; E66.01 Morbid (severe) obesity due to excess calories; Z68.36 Body mass index [BMI] 36.0-36.9, adult; M81.0 Age-related osteoporosis without current pathological fracture; E11.3599 Type 2 diabetes mellitus with proliferative diabetic retinopathy without macular edema, unspecified eye; Z87.891 Personal history of nicotine dependence; E11.40 Type 2 diabetes mellitus with diabetic neuropathy, unspecified; E11.51 Type 2 diabetes mellitus with diabetic peripheral angiopathy without gangrene; D63.1 Anemia in chronic kidney disease; K59.00 Constipation, unspecified
CPT/HCPCS: 36415; 71046; 80048; 80053; 80069; 80202; 82565; 82948; 83036; 83615; 83690; 85014; 85018; 85025; 85027; 86140; 88307; 88311; 97110; 97162; 97166; 97530; 97535; A9270; G0257; J0690; J0696; J1644; J1815; J2270; J2370; J2405; J2704; J3010; J3370; J7030; J7040; J7120; P9047; Q5105

== ENCOUNTER 2021-03-28 09:30 | Outpatient (CLI) | payer MEDICARE, MEDICAID, SELFPAY ==
[2021-03-28 10:39] LABS: Hematocrit 41.5 % (37.0-47.0); Hemoglobin 13.7 g/dL (12.0-15.0); Mean Corpuscular Hemoglobin 33.1 pg (26-34); Mean Corpuscular Volume 100.2 fl (80-100); Mean Platelet Volume 10.9 fl (7.4-10.4); Platelet Count Result 232 k/mm3 (150-375); Red Blood Count 4.14 M/mm3 (4.2-5.4); Red Cell Distribution Width 13.9 % (11.5-14.5); White Blood Count 7.4 K/mm3 (4.5-10.0)
[2021-03-28 10:56] LABS: Alanine Aminotransferase 36 U/L (4-35); Albumin Level 4.3 g/dL (3.5-5.1); Alkaline Phosphatase 243 U/L (38-126); Anion Gap 15 mmol/L (8-16); Aspartate Amino Transferase 39 U/L (14-36); Bilirubin,Total 0.6 mg/dL (0.2-1.3); Blood Urea Nitrogen 65 mg/dL (7-17); Calcium 9.9 mg/dL (8.4-10.2); Carbon Dioxide 28 mmol/L (22-30); Chloride 90 mmol/L (98-107); Estimated Glomerular Filt Rate 10; Glucose 290 mg/dL (65-110); Potassium 4.3 mmol/L (3.4-5.0); Sodium 133 mmol/L (137-145)
[2021-03-28 12:47] LABS: Hepatitis C Virus Antibody Negative (Negative)
[2021-04-02 18:12] LABS: Alpha Fetoprotein Tumor Marker 2.3 ng/mL (<6.1)
== END 2021-03-28 09:31 | disposition home or self-care (01) ==
PROVIDERS: PCP Internal Medicine; Visit Provider Internal Medicine Gastroenterology
DX: R93.2 Abnormal findings on diagnostic imaging of liver and biliary tract (principal); K76.9 Liver disease, unspecified; R93.3 Abnormal findings on diagnostic imaging of other parts of digestive tract
CPT/HCPCS: 36415; 80053; 82105; 82728; 85027; 86038; 86235; 86803

== ENCOUNTER 2021-04-06 08:05 | Outpatient (CLI) | payer MEDICARE, MEDICAID, SELFPAY ==
--- NOTE | ~2021-04-06 | US_ITS ---
EXAMINATION: US right upper quadrant EXAM DATE: 04/06/2021 09:13 INDICATION: Imaging Of Gastro Tract Abn Infarctions Of Liver . Splenic infarcts. Vasculopathy, recent amputee. TECHNIQUE: Multiple grayscale and Doppler images of the abdomen right upper quadrant were obtained (b y a technologist who performed the scan) and subsequently reviewed. Correlation is made to abdomen pe lvis CT 07/05/2019. FINDINGS: The pancreatic head and body are normal in appearance. The pancreatic tail is not visualized. The l iver has normal echogenicity and contour. There are no focal liver lesions identified, cannot identi fy the regions consistent with infarctions on prior CT. No suspicious liver masses. There is no evid ence of intrahepatic biliary duct dilation. Portal venous flow was seen in the hepatopedal, normal d irection and has normal Doppler waveform. No right-sided hydronephrosis. Common bile duct measures 7 mm, which is normal for age. The gallbladder wall is mildly thickened, wi th expected amount of distention. No sonographic evidence of pericholecystic fluid. There is cholel ithiasis. Technologist performing exam reports patient did not demonstrate sonographic Beverly's sig n. Please note that this sign is less reliable in patients who have received pain medication. Diffe rential diagnosis includes interstitial edema, chronic liver disease, chronic cholecystitis. IMPRESSION: 1. Cholelithiasis. Mild nonspecific gallbladder wall thickening. 2. Sonographically unremarkable liver. Reviewed, dictated and finalized at location B. [employer]IC SE[employer] TECHNICAL LEAD
== END 2021-04-06 08:06 | disposition home or self-care (01) ==
PROVIDERS: PCP Internal Medicine; Visit Provider Internal Medicine Gastroenterology
DX: R93.5 Abnormal findings on diagnostic imaging of other abdominal regions, including retroperitoneum (principal); K80.20 Calculus of gallbladder without cholecystitis without obstruction
CPT/HCPCS: 76705

== ENCOUNTER 2021-04-08 07:35 | Outpatient (RCR) | payer OTHER, MEDICARE, MEDICAID, SELFPAY ==
--- NOTE | 2021-01-28 12:15 | PM.PNORT ---
Progress Note: A&P Assessment and Plan (1) Status post below knee amputation of right lower extremity: Code(s): Z89.511 - Acquired absence of right leg below knee Status: Acute Assessment and Plan: 3 weeks, 1 day status post right [id number] amputation. Pancho removed from the right stump today. Wound VAC discontinued. Patient does have a small area of incisional dehiscence on the more medial aspect of the incision measuring 2.5 x 0.5 x 0.3 cm. Wound bed is fibrinous in nature. No malodor. No purulence. Surrounding tissue without redness or warmth. Patient does have 1 to 2+ pitting edema in the right stump. Patient continues on hemodialysis without complications. Patient to begin stump shrinking process. In the interim, continue silver gel and transfer as well as to be ripped over the right BKA. Silver gel and transfer to be applied to the area of incisional dehiscence. Patient follow-up in 1 week for re-evaluation. We will contact [employer] Comp[employer] Turbine Operator to begin stump shrinking process. Continue PT and OT for left lower extremity strengthening to prepare for eventual prosthesis of the right lower extremity. Subjective Subjective Date/Time Seen: 01/28/21 12:15 Interval history: 3 weeks, 1 day s/p right BKA. patient has been undergoing wound VAC dressing changes every 48-72 hours for incisional wound VAC of the right BKA incision. Patient presents today without wound VAC device. Wound VAC removed. Patient denies fever, chills, night sweats, nausea, vomiting or diarrhea. No new concerns overall aside from swelling of the right BKA. Review of Systems Constitutional: Constitutional: Reports no additional constitutional complaints, Denies chills, Denies fatigue, Denies fever(s), Denies headache(s) and Denies weakness Eyes: Eyes: Denies change in vision ENT: Reports Normal hearing present and Denies headache(s) Cardiovascular: Cardiovascular: Denies chest pain, Reports pedal edema and Reports edema Respiratory: Respiratory: Denies cough, Denies dyspnea and Denies wheezing Gastrointestinal: Gastrointestinal: Denies constipation, Denies diarrhea, Denies nausea and Denies vomiting Genitourinary: Genitourinary: Reports no additional female genitourinary complaints Musculoskeletal: Musculoskeletal: Reports as per HPI, Reports numbness and Reports tingling Integumentary/Breasts: Skin/Breast: Reports as per HPI Neurologic: Reports as per HPI, Reports Normal hearing present and Denies headache(s) Psychiatric: Psychiatric: Reports no additional psychiatric complaints Endocrine: Endocrine: Reports no additional endocrine complaints and Denies fatigue Hematologic/Lymphatic: Hematologic/Lymphatic: Reports no additional hematologic/lymphatic complaints Allergic/Immunologic: Allergic/Immunologic: Reports no additional allergic/immunologic complaints and Denies wheezing Exam Const: General: comfortable and no acute distress Resp: Effort & Inspection: normal respiratory effort GI: Inspection: non-distended GI Palp: Yes Soft to palpation and No Tenderness to palpation present (GI) Neuro: Cognition (Neuro): normal cognition Extrem: Right lower extremity: knee Details: other (Transtibial amputation. Wound VAC in place. Edema improved.) Other: Wound VAC dressing removed. Incision well approximated. Sycamore removed. Small area of incisional dehiscence measures 2.5 x 0.5 x 0.3 cm. No ecchymosis. No necrosis. No malodor. Scant serous drainage. No obvious evidence of abscess. 2+ pitting edema right lower extremity above the site of BKA. Psych: Mental Status: mental status grossly normal Thought content: Yes Normal thought content present Objective Data Meds/Results Medications: Active Medications Generic Name Dose Route Start Last Admin Trade Name Freq PRN Reason Stop Dose Admin Silver Nitrate 1 applic 01/28/21 09:00 Silvergel (Elta) 45 Ml TOPICAL 04/30/21 23:55 PRN PRN Wound Care Wound
--- NOTE | 2021-02-04 09:11 | PM.PNORT ---
Progress Note: A&P Assessment and Plan (1) Status post below knee amputation of right lower extremity: Code(s): Z89.511 - Acquired absence of right leg below knee Status: Acute Assessment and Plan: 4 weeks, 1 day status post right [id number] amputation. Burke removed last week and small incision dehiscence noted. Wound now completely closed with one week of silver gel treatment. Patient still has notable swelling in the right LE. Awaiting [facility] to begin the stump shrinking process, orders have been submitted x2. Patient to continue tubigrip. Continue PT/OT for lower extremity strengthening in preparation for prosthetic. Patient with complaints of nerve pain. PCP at [facility] put her on tramadol per patient report. Will contact SNF to discuss recommendations for nerve pain. Patient also with complaints of itching on her back and bilateral legs. She previously had ointment from her scientist propagator per patient. Instructed patient to discuss with scientist propagator. Follow up in 3 weeks. Subjective Subjective Date/Time Seen: 02/04/21 09:11 Principal diagnosis: Right BKA Interval history: 4 weeks, 1 day s/p right BKA. Pancho removed last week. Small incision dehiscence. Patient denies fever, chills, night sweats, nausea, vomiting or diarrhea. No new concerns overall, improvement in swelling. Awaiting stump shrinking process. Still at [facility] for PT/OT. Review of Systems Constitutional: Constitutional: Reports no additional constitutional complaints, Denies chills, Denies fatigue, Denies fever(s), Denies headache(s) and Denies weakness Eyes: Eyes: Denies change in vision ENT: Reports Normal hearing present and Denies headache(s) Cardiovascular: Cardiovascular: Denies chest pain, Reports pedal edema and Reports edema Respiratory: Respiratory: Denies cough, Denies dyspnea and Denies wheezing Gastrointestinal: Gastrointestinal: Denies constipation, Denies diarrhea, Denies nausea and Denies vomiting Genitourinary: Genitourinary: Reports no additional female genitourinary complaints Musculoskeletal: Musculoskeletal: Reports as per HPI, Reports numbness and Reports tingling Integumentary/Breasts: Skin/Breast: Reports as per HPI Neurologic: Reports as per HPI, Reports Normal hearing present and Denies headache(s) Psychiatric: Psychiatric: Reports no additional psychiatric complaints Endocrine: Endocrine: Reports no additional endocrine complaints and Denies fatigue Hematologic/Lymphatic: Hematologic/Lymphatic: Reports no additional hematologic/lymphatic complaints Allergic/Immunologic: Allergic/Immunologic: Reports no additional allergic/immunologic complaints and Denies wheezing Exam Const: General: comfortable and no acute distress Resp: Effort & Inspection: normal respiratory effort GI: Inspection: non-distended GI Palp: Yes Soft to palpation and No Tenderness to palpation present (GI) Neuro: Cognition (Neuro): normal cognition Extrem: Right lower extremity: knee Details: other (Transtibial amputation. Wound VAC in place. Edema improved.) Other: Incisional dehiscence of right BKA stump now well healed. No ecchymosis. No necrosis. No malodor. Still with 2+ pitting edema right lower extremity above the site of BKA, mildly improved. Psych: Mental Status: mental status grossly normal Thought content: Yes Normal thought content present Objective Data Meds/Results Medications: Active Medications Generic Name Dose Route Start Last Admin Trade Name Freq PRN Reason Stop Dose Admin Silver Nitrate 1 applic 01/28/21 09:00 Silvergel (Elta) 45 Ml TOPICAL 04/30/21 23:55 PRN PRN Wound Care Wound Care/Dressing Products 1 patch 01/28/21 09:00 Mepilex Transfer Drsg 6x8 TOPICAL 04/30/21 23:55 PRN PRN Wound Care [facility] Follow-up Billing Inpatient Follow-up [id number] Post-op Follow Up
--- NOTE | 2021-02-25 09:27 | PM.PNORT ---
Progress Note: A&P Assessment and Plan (1) Status post below knee amputation of right lower extremity: Code(s): Z89.511 - Acquired absence of right leg below knee Status: Acute Assessment and Plan: Seven weeks status post right below-knee amputation. Incision with some wound breakdown. This was debrided today with 15 blade knife. Some suture material was able to be removed. Local wound care with silver gel and Marylin. Continue with dressing changes and care for the soft tissue until fully healed. We then plan to start stump shrinkage. Follow-up in 4 to 6 weeks for re-evaluation. (2) Venous stasis dermatitis of right lower extremity: Code(s): I87.2 - Venous insufficiency (chronic) (peripheral) Status: Acute Subjective Subjective Date/Time Seen: 02/25/21 09:27 Post Op day: 7 weeks Principal diagnosis: Right below-knee amputation Interval history: 7 weeks status post right below-knee amputation complicated by wound dehiscence. She returns to outpatient wound clinic for re-evaluation. They were concerned about starting her stump shrinkage until the soft tissue is fully healed. Exam Const: General: comfortable and no acute distress Resp: Effort & Inspection: normal respiratory effort GI: Inspection: non-distended GI Palp: Yes Soft to palpation and No Tenderness to palpation present (GI) Neuro: Cognition (Neuro): normal cognition Extrem: Right lower extremity: knee Other: right below-knee amputation incision has 3 open areas. The more medial wound is 2.1 x 0.8 cm with a depth in the central portion of 2.9 cm. The more lateral 1 is 0.3 x 0.3 x 0.3 cm. No active drainage. Psych: Mental Status: mental status grossly normal Thought content: Yes Normal thought content present Objective Data Meds/Results Medications: Active Medications Generic Name Dose Route Start Last Admin Trade Name Freq PRN Reason Stop Dose Admin Silver Nitrate 1 applic 01/28/21 09:00 Silvergel (Elta) 45 Ml TOPICAL 04/30/21 23:55 PRN PRN Wound Care Wound Care/Dressing Products 1 patch 01/28/21 09:00 Mepilex Transfer Drsg 6x8 TOPICAL 04/30/21 23:55 PRN PRN Wound Care Podiatry Debridement Skin Pre Procedure Consent was obtained, Procedures/risks were explained, Questions were answered, Correct patient identified and Correct side and site confirmed Podiatry Debridement Skin Site(s) of debridement: Right tendon Sent to Pathology: No Debridement Depth: Skin, subcutaneous tissue Size (CM): 4 Garzon's classificatoin for foot ulcers: Grade 2 Procedure Debridement skin and subcut ( Alcohol prep solution. Fifteen blade knife. Excise skin, subcutaneous tissue which was devitalized. Sterile dressing applied. No complications.) Post Procedure Patient tolerated the procedure well?: Tolerated procedure well
--- NOTE | 2021-03-25 09:26 | PCWOUND ---
WOCN NOTE patient did not show up for her appointment. When patient was called to see if she was coming, she then stated that something got messed up with her transportation. Patient rescheduled for 04/08/21.
--- NOTE | 2021-04-08 09:17 | PM.IMHP ---
H&P: HPI History of Present Illness Date/Time: 04/08/21 09:17 Chief Complaint: Right below-knee amputation Narrative: returns to [facility]. Status post right below-knee amputation. Now at home with daily dressing changes. Using silver general Marylin for the 1 ulcer that remains. Stump shrinkage Awaiting edema control but unable to start prosthetic fitting. Review of Systems Constitutional: Constitutional: Reports no additional constitutional complaints, Denies chills, Denies fatigue, Denies fever(s), Denies headache(s) and Denies weakness Eyes: Eyes: Denies change in vision ENT: Reports Normal hearing present and Denies headache(s) Cardiovascular: Cardiovascular: Denies chest pain, Reports pedal edema and Reports edema Respiratory: Respiratory: Denies cough, Denies dyspnea and Denies wheezing Gastrointestinal: Gastrointestinal: Denies constipation, Denies diarrhea, Denies nausea and Denies vomiting Genitourinary: Genitourinary: Reports no additional female genitourinary complaints Musculoskeletal: Musculoskeletal: Reports as per HPI, Reports numbness and Reports tingling Integumentary/Breasts: Skin/Breast: Reports as per HPI Neurologic: Reports as per HPI, Reports Normal hearing present and Denies headache(s) Psychiatric: Psychiatric: Reports no additional psychiatric complaints Endocrine: Endocrine: Reports no additional endocrine complaints and Denies fatigue Hematologic/Lymphatic: Hematologic/Lymphatic: Reports no additional hematologic/lymphatic complaints Allergic/Immunologic: Allergic/Immunologic: Reports no additional allergic/immunologic complaints and Denies wheezing PMFSH Past Medical History Medical History Anxiety and depression Arthritis Benign thyroid cyst Evaluated by ultrasound a couple of years ago per patient report. Cerebrovascular accident Due to embolic event following a shoulder fracture 2016 with chronic mild left-sided weakness. Chronic anemia Chronic venous stasis dermatitis of both lower extremities Diabetic gastroparesis Diabetic neuropathy Diabetic retinopathy of both eyes End-stage renal disease on hemodialysis Previously on peritoneal dialysis. Gastroesophageal reflux disease Gout Grade II diastolic dysfunction Noted on echo on 07/04/2019. EF 55-60%. 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 Moderate pulmonary hypertension Noted on echo on 07/04/2019 with estimated pulmonary arterial systolic pressure on 53 mmHg. Morbid obesity Osteomyelitis of right foot Osteoporosis Retinal detachment Right knee pain Shingles Splenic infarct (07/07/19) Venous stasis dermatitis of right lower extremity Surgical History Surgical History History of bilateral cataract extraction (2009) History of total hysterectomy with bilateral salpingo-oophorectomy (BSO) For benign ovarian mass. Proliferative diabetic retinopathy with history of surgery Status post excisional debridement (~10/2020) Debridement of diabetic foot ulcer and osteomyelitis of right foot. Status post glaucoma surgery Surgically constructed arteriovenous fistula (2015) Family History Family History Sibling Family history of alcoholism Mother Metastatic colon cancer in female Father Cancer Of the neck due to chemical exposure Son Heroin overdose Her youngest son Motor vehicle collision Her 2nd youngest son Other Hypertension Social History Social History Social History: Surrogate decision maker: Satya Rodriguez, son. Code status: Full code. Smoking status: Never smoker Second hand tobacco smoke exposure:
== END 2021-04-28 23:59 | disposition home or self-care (01) ==
LOC: ANHWOC 07:35
PROVIDERS: PCP Internal Medicine; Visit Provider Orthopaedic Surgery
DX: Z47.81 Encounter for orthopedic aftercare following surgical amputation (principal); Z89.511 Acquired absence of right leg below knee
CPT/HCPCS: 11042; 99212; 99213; G0463

== ENCOUNTER 2021-04-18 09:44 | Outpatient (CLI) | payer MEDICARE, MEDICAID, SELFPAY ==
[2021-04-18 10:59] LABS: Alanine Aminotransferase 67 U/L (4-35); Albumin Level 3.9 g/dL (3.5-5.1); Alkaline Phosphatase 219 U/L (38-126); Anion Gap 8 mmol/L (8-16); Aspartate Amino Transferase 50 U/L (14-36); Bilirubin,Total 0.8 mg/dL (0.2-1.3); Blood Urea Nitrogen 48 mg/dL (7-17); Calcium 9.8 mg/dL (8.4-10.2); Carbon Dioxide 31 mmol/L (22-30); Chloride 93 mmol/L (98-107); Cholesterol 116 mg/dL (0-200); Estimated Glomerular Filt Rate 9; Glucose 286 mg/dL (65-110); HDL Direct 49 mg/dL; Potassium 4.3 mmol/L (3.4-5.0); Sodium 132 mmol/L (137-145); Triglycerides 121 mg/dL (<150)
[2021-04-18 11:01] LABS: Basophils Percent Auto 0.6 % (0.2-1.2); Eosinophils Absolute Auto 0.2 K/mm3 (0-0.3); Eosinophils Percent Auto 2.8 % (0-4.4); Hematocrit 40.7 % (37.0-47.0); Hemoglobin 13.4 g/dL (12.0-15.0); Immature Granulocyte Absolute 0.02 K/mm3 (0.00-0.031); Immature Granulocyte Percent A 0.3 % (0-0.5); Lymphocytes Absolute Auto 0.56 K/mm3 (0.9-3.2); Lymphocytes Percent Auto 8.8 % (18.3-44.2); Mean Corpuscular HGB Conc 32.9 g/dl (32-36); Mean Corpuscular Hemoglobin 32.1 pg (26-34); Mean Corpuscular Volume 97.6 fl (80-100); Mean Platelet Volume 12.2 fl (7.4-10.4); Monocytes Absolute Auto 0.4 K/mm3 (0.1-0.6); Monocytes Percent Auto 6.4 % (2.6-8.5); Neutrophils Absolute Auto 5.2 K/mm3 (1.3-6.7); Neutrophils Percent Auto 81.1 % (45.5-73.1); Platelet Count Result 162 k/mm3 (150-375); Red Blood Count 4.17 M/mm3 (4.2-5.4); Red Cell Distribution Width 13.2 % (11.5-14.5); White Blood Count 6.4 K/mm3 (4.5-10.0)
[2021-04-18 11:12] LABS: LDL Cholesterol Direct < 30 mg/dL
[2021-04-18 11:23] LABS: Vitamin D 25 Hydroxy 78.7 ng/mL
[2021-04-18 11:31] LABS: Hemoglobin A1C 9.9 % (<5.7)
== END 2021-04-18 09:45 | disposition home or self-care (01) ==
PROVIDERS: PCP Internal Medicine; Visit Provider Internal Medicine
DX: E11.9 Type 2 diabetes mellitus without complications (principal); E78.5 Hyperlipidemia, unspecified; E55.9 Vitamin D deficiency, unspecified
CPT/HCPCS: 36415; 80053; 80061; 82306; 83036; 84443; 85025

== ENCOUNTER 2021-07-08 11:42 | Emergency (ER) | payer OTHER, MEDICAID, SELFPAY ==
[2021-07-08] VITALS (12 sets, daily range): BP systolic 162–165; BP diastolic 69–75; PULSE 65–69; RESP 13–22; TEMP 36.1; O2SAT 94–100
--- NOTE | ~2021-07-08 | XR_ITS ---
EXAMINATION: XR ankle LT min 3V DATE: 07/08/2021 12:33 INDICATION: Left ankle pain and limited range of motion post fall TECHNIQUE: Anteroposterior, oblique, and lateral views of the left ankle were obtained. COMPARISON: None. FINDINGS: Diffuse osteopenia. Alignment is normal. No fracture. Mild polyarticular osteoarthritis at the left a nkle and a few joints in the mid and hindfoot. Moderate-sized plantar calcaneal spur and tiny [place] s calcaneal enthesophyte. Extensive scattered vascular calcification along the arteries of the visual ized lower leg and foot. Mild soft tissue swelling with some subcutaneous edema about the left ankle and visualized lower leg. IMPRESSION: 1. Mild degenerative skeletal changes at the left ankle mid and hindfoot. No acute osseous abnormalit y. Reviewed, dictated and finalized at location A. IMPRESSION: 1. Mild degenerative skeletal changes at the left ankle mid and hindfoot. No ac paulino osseous abnormality.
--- NOTE | 2021-07-08 12:31 | PC.NURSE ---
Radiology at bedside for xray of left ankle.
--- NOTE | 2021-07-08 13:30 | PC.NURSE ---
Dr. Aquino at bedside to assess pt.
--- NOTE | 2021-07-08 13:30 | ED.GENADULT ---
HPI - General Adult General Chief complaint: Extremity Injury, Lower Stated complaint: Unspecified Time Seen by Provider: 07/08/21 12:17 Source: patient Mode of arrival: EMS Limitations: no limitations History of Present Illness HPI narrative: 71-year-old female presenting to the emergency department for evaluation of left ankle pain. Patient has a history of a right BKA and is still having follow-up by Dr. Varma. Patient states that she had a fall from a couch today when she rolled her left ankle. Patient denies any knee pain or foot pain. Related Data Home Medications Medication Instructions Recorded Confirmed bupropion HCl [Wellbutrin SR] 50 mg PO DAILY 05/30/19 01/28/21 amlodipine 10 mg PO DAILY 09/07/20 01/28/21 atorvastatin 20 mg PO HS 09/07/20 01/28/21 allopurinol 100 mg PO DAILY 10/21/20 01/28/21 carvedilol 25 mg PO DAILY 10/21/20 01/28/21 Allergies Allergy/AdvReac Type Severity Reaction Status Date / Time adhesive tape AdvReac Itching Verified 07/08/21 12:32 Review of Systems Review of Systems: CONSTITUTIONAL: Denies fever, chills, or sweats. SKIN: Denies rash or itching. MUSCULOSKELETAL: See HPI NEUROLOGIC: Denies headache, numbness, or weakness. All systems reviewed & are unremarkable except as noted in HPI and below PMFSH Past Medical History Medical History Anxiety and depression Arthritis Benign thyroid cyst Evaluated by ultrasound a couple of years ago per patient report. Cerebrovascular accident Due to embolic event following a shoulder fracture 2016 with chronic mild left-sided weakness. Chronic anemia Chronic venous stasis dermatitis of both lower extremities Contusion of ankle, left Diabetic gastroparesis Diabetic neuropathy Diabetic retinopathy of both eyes End-stage renal disease on hemodialysis Previously on peritoneal dialysis. Gastroesophageal reflux disease Gout Grade II diastolic dysfunction Noted on echo on 07/04/2019. EF 55-60%. 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 Moderate pulmonary hypertension Noted on echo on 07/04/2019 with estimated pulmonary arterial systolic pressure on 53 mmHg. Morbid obesity Osteomyelitis of right foot Osteoporosis Retinal detachment Right knee pain Shingles Splenic infarct (07/07/19) Venous stasis dermatitis of right lower extremity Surgical History Surgical History History of bilateral cataract extraction (2009) History of total hysterectomy with bilateral salpingo-oophorectomy (BSO) For benign ovarian mass. Proliferative diabetic retinopathy with history of surgery Status post excisional debridement (~10/2020) Debridement of diabetic foot ulcer and osteomyelitis of right foot. Status post glaucoma surgery Surgically constructed arteriovenous fistula (2015) Family History Family History Sibling Family history of alcoholism Mother Metastatic colon cancer in female Father Cancer Of the neck due to chemical exposure Son Heroin overdose Her youngest son Motor vehicle collision Her 2nd youngest son Other Hypertension Social History Social History Social History: Surrogate decision maker: Satya Rodriguez, son. Code status: Full code. Smoking status: Never smoker Second hand tobacco smoke exposure: No Alcohol intake: never Substance use: never Substance use type: does not use Additional living arrangements comments: Lives alone in [place]. . She had a total of 4 sons; the 2 eldest sons are still living and are relatively healthy. 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
== END 2021-07-08 14:37 | disposition home or self-care (01) ==
PROVIDERS: Emergency Provider Emergency Medicine; PCP Internal Medicine
DX: S96.912A Strain of unspecified muscle and tendon at ankle and foot level, left foot, initial encounter (principal); F41.9 Anxiety disorder, unspecified; F32.A Depression, unspecified; D64.9 Anemia, unspecified; E11.43 Type 2 diabetes mellitus with diabetic autonomic (poly)neuropathy; E11.319 Type 2 diabetes mellitus with unspecified diabetic retinopathy without macular edema; E11.40 Type 2 diabetes mellitus with diabetic neuropathy, unspecified; E11.22 Type 2 diabetes mellitus with diabetic chronic kidney disease; K31.84 Gastroparesis; I12.0 Hypertensive chronic kidney disease with stage 5 chronic kidney disease or end stage renal disease; N18.6 End stage renal disease; Z99.2 Dependence on renal dialysis; E78.5 Hyperlipidemia, unspecified; I27.20 Pulmonary hypertension, unspecified; E66.01 Morbid (severe) obesity due to excess calories; Z68.33 Body mass index [BMI] 33.0-33.9, adult; K21.9 Gastro-esophageal reflux disease without esophagitis; M10.9 Gout, unspecified; M19.90 Unspecified osteoarthritis, unspecified site; M81.0 Age-related osteoporosis without current pathological fracture; Z89.511 Acquired absence of right leg below knee; Z98.42 Cataract extraction status, left eye; Z98.41 Cataract extraction status, right eye; W08.XXXA Fall from other furniture, initial encounter; Z79.4 Long term (current) use of insulin; Z79.01 Long term (current) use of anticoagulants
CPT/HCPCS: 73610; 99283

== ENCOUNTER 2021-07-14 15:41 | Emergency (ER) | payer OTHER, MEDICAID, SELFPAY ==
[2021-07-14] VITALS (9 sets, daily range): BP systolic 121–167; BP diastolic 67–97; PULSE 66–70; RESP 15–21; TEMP 36.5; O2SAT 97–99
--- NOTE | ~2021-07-14 | CT_ITS ---
EXAMINATION: CT brain wo con INDICATION: Altered mental status COMPARISON: 11/16/2020 TECHNIQUE: Standard unenhanced head CT. The dose-length product (DLP) was 605.33 mGy-cm. The mA was a djusted according to patient size. Iterative reconstruction technique was employed. FINDINGS: There is no acute intraparenchymal hemorrhage. No evidence of mass lesion. No evidence of a cute infarction. There are old infarcts in the right occipital lobe and left basal ganglia. There is mild periventricular and subcortical hypodensity probably related to small vessel ischemic disease. T here is mild prominence of the sulci and ventricles related to cerebral atrophy. Intracranial calcifi ed cerebral atherosclerosis is noted. There are no extra-axial collections. There is no mass effect o r midline shift. Changes in the globes are likely from ocular lens surgery. The visualized sinuses an d mastoid air cells are well aerated. IMPRESSION: 1. Areas of prior infarction without acute intracranial abnormality. 2. Age related findings. Reviewed, dictated and finalized at location F.
--- NOTE | ~2021-07-14 | XR_ITS ---
EXAMINATION: XR chest 2V DATE: 07/14/2021 17:39 INDICATION: Altered mental status, history of hypertension TECHNIQUE: AP and lateral views of the chest are obtained. COMPARISON: 01/07/2021 FINDINGS: Cardiomegaly is noted. There is a mild diffuse interstitial pattern. No pleural effusion or pneumothorax is identified. The lungs are free of focal airspace opacities. There is moderate thorac ic spondylosis. IMPRESSION: 1. Cardiomegaly with mild pulmonary edema. Reviewed, dictated and finalized at location F.
--- NOTE | 2021-07-14 17:10 | ECG_ITS ---
Measurements Intervals [place] Rate: 67 P: 56 MS: 179 QRS: -28 QRSD: 169 T: 118 QT: 516 QTc: 546 Interpretive Statements SINUS RHYTHM LEFT BUNDLE BRANCH BLOCK [120+ ms QRS DURATION, 80+ ms Q/S IN V1/V2, 85+ ms R IN I/aVL/V5/V6] COMPARED TO ECG 11/16/2020 15:45:41 THE PATIENT IS NO LONGER BRADYCARDIC Electronically Signed On 07-14-2021 20:57:50 CDT by Megan Doan M.D.
--- NOTE | 2021-07-14 17:22 | ED.GENADULT ---
HPI - General Adult General Chief complaint: Unspecified Stated complaint: confusion x 2 weeks Time Seen by Provider: 07/14/21 17:10 Source: patient and family Mode of arrival: wheelchair History of Present Illness HPI narrative: 71-year-old female presents today with son at bedside with complaints of confusion and tremors. Patient states that she has had confusion over the last couple weeks. One episode was when she fell out of the couch at home and she called the care home because that is where she thought she was. She told them that if they did not come and help her get up off the floor that she is going to call 911. That to the medical receptionist medical assistant said that she was not a patient there. Also noted with tremors more to the right side than the left. Upon examination no tremors were noted. Patient alert and oriented x4 upon examination. Currently patient lives at home with son. States she has a history of a recent UTI that she is not sure has cleared up. Patient is a dialysis patient. Receive dialysis today without issue. Currently she says she makes very little to no urine. Denies fevers, body aches, chills, sick contacts. Nausea, vomiting, diarrhea. Related Data Home Medications Medication Instructions Recorded Confirmed bupropion HCl [Wellbutrin SR] 50 mg PO DAILY 05/30/19 01/28/21 amlodipine 10 mg PO DAILY 09/07/20 01/28/21 atorvastatin 20 mg PO HS 09/07/20 01/28/21 allopurinol 100 mg PO DAILY 10/21/20 01/28/21 carvedilol 25 mg PO DAILY 10/21/20 01/28/21 Allergies Allergy/AdvReac Type Severity Reaction Status Date / Time adhesive tape AdvReac Itching Verified 07/08/21 12:32 Review of Systems Review of Systems: CONSTITUTIONAL: Denies fever, chills, or sweats. EYES: Denies visual changes, redness, or discharge. ENT: Denies rhinorrhea, congestion, sore throat, or otalgia. CARDIOVASCULAR: Denies chest pain, palpitations, or edema. RESPIRATORY: Denies cough or dyspnea. GASTROINTESTINAL: Denies abdominal pain, nausea, vomiting, or diarrhea. GENITOURINARY: Denies dysuria or hematuria. SKIN: Denies rash or itching. MUSCULOSKELETAL: Denies back pain, joint pain, or myalgia. NEUROLOGIC: Confusion at times and tremors. Denies headache, numbness, dizziness, or weakness. PSYCHIATRIC: Denies anxiety or depression. [facility] Past Medical History Medical History Anxiety and depression Arthritis Benign thyroid cyst Evaluated by ultrasound a couple of years ago per patient report. Cerebrovascular accident Due to embolic event following a shoulder fracture 2016 with chronic mild left-sided weakness. Chronic anemia Chronic venous stasis dermatitis of both lower extremities Contusion of ankle, left Diabetic gastroparesis Diabetic neuropathy Diabetic retinopathy of both eyes End-stage renal disease on hemodialysis Previously on peritoneal dialysis. Gastroesophageal reflux disease Gout Grade II diastolic dysfunction Noted on echo on 07/04/2019. EF 55-60%. 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 Moderate pulmonary hypertension Noted on echo on 07/04/2019 with estimated pulmonary arterial systolic pressure on 53 mmHg. Morbid obesity Osteomyelitis of right foot Osteoporosis Retinal detachment Right knee pain Shingles Splenic infarct (07/07/19) Venous stasis dermatitis of right lower extremity Surgical History Surgical History History of bilateral cataract extraction (2009) History of total hysterectomy with bilateral salpingo-oophorectomy (BSO) For benign ovarian mass. Proliferative diabetic retinopathy with history of surgery Status post excisional debridement (~10/2020) Debridement of diabetic foot ulcer and osteomyelitis of right foot. Status post glaucoma surgery Surgically constructed art
[2021-07-14 17:50] LABS: Basophils Percent Auto 0.3 % (0.2-1.2); Eosinophils Absolute Auto 0.2 K/mm3 (0-0.3); Eosinophils Percent Auto 2.8 % (0-4.4); Hematocrit 40.1 % (37.0-47.0); Hemoglobin 12.7 g/dL (12.0-15.0); Immature Granulocyte Absolute 0.02 K/mm3 (0.00-0.031); Immature Granulocyte Percent A 0.3 % (0-0.5); Lymphocytes Absolute Auto 0.59 K/mm3 (0.9-3.2); Lymphocytes Percent Auto 9.6 % (18.3-44.2); Mean Corpuscular HGB Conc 31.7 g/dl (32-36); Mean Corpuscular Hemoglobin 33.5 pg (26-34); Mean Corpuscular Volume 105.8 fl (80-100); Mean Platelet Volume 11.7 fl (7.4-10.4); Monocytes Absolute Auto 0.5 K/mm3 (0.1-0.6); Monocytes Percent Auto 8.3 % (2.6-8.5); Neutrophils Absolute Auto 4.9 K/mm3 (1.3-6.7); Neutrophils Percent Auto 78.7 % (45.5-73.1); Platelet Count Result 176 k/mm3 (150-375); Red Blood Count 3.79 M/mm3 (4.2-5.4); Red Cell Distribution Width 15.6 % (11.5-14.5); White Blood Count 6.2 K/mm3 (4.5-10.0)
[2021-07-14 18:01] LABS: INR 1.2; Prothrombin Time 15.1 Seconds (11.1-14.7)
[2021-07-14 18:02] LABS: Partial Thromboplastin Time 35.9 SECONDS (22.3-36.8)
[2021-07-14 18:04] LABS: Alanine Aminotransferase 30 U/L (4-35); Albumin Level 3.7 g/dL (3.5-5.1); Alkaline Phosphatase 348 U/L (38-126); Anion Gap 6 mmol/L (8-16); Aspartate Amino Transferase 41 U/L (14-36); Bilirubin,Total 1.5 mg/dL (0.2-1.3); Blood Urea Nitrogen 34 mg/dL (7-17); Calcium 8.5 mg/dL (8.4-10.2); Carbon Dioxide 37 mmol/L (22-30); Chloride 92 mmol/L (98-107); Estimated CRCL calculation 18 ml/min; Estimated Glomerular Filt Rate 17; Glucose 274 mg/dL (65-110); Potassium 3.3 mmol/L (3.4-5.0); Sodium 135 mmol/L (137-145)
[2021-07-14 18:27] LABS: Add Urine Microscopic? YES; Appearance Urine Turbid (Clear); Bilirubin Urine Negative (Negative); Blood Urine 1+ (Negative); Color Urine Amber (Yellow); Glucose Urine UA 2+ mg/dL (Negative); Ketones Urine Negative (Negative); Leukocyte Esterase Ur 2+ LEU/UL (Negative); Nitrate Urine Negative (Negative); Protein Urine 3+ mg/dL (Negative); Specific Grav Ur 1.016 (1.001-1.035); Squamous Epithelial Cell Urine Many /hpf (Few); Urobilinogen Urine Negative mg/dL (<2.0); WBC Urine >75 /hpf
[2021-07-14] MEDS: CEPHALEXIN 500 MG CAPSULE PO (19:17)
== END 2021-07-14 20:30 ==
PROVIDERS: Emergency Provider Nurse Practitioner Family; PCP Internal Medicine
DX: F41.9 Anxiety disorder, unspecified (principal); F32.A Depression, unspecified; D64.9 Anemia, unspecified; E11.43 Type 2 diabetes mellitus with diabetic autonomic (poly)neuropathy; K31.84 Gastroparesis; E11.40 Type 2 diabetes mellitus with diabetic neuropathy, unspecified; E11.319 Type 2 diabetes mellitus with unspecified diabetic retinopathy without macular edema; E11.22 Type 2 diabetes mellitus with diabetic chronic kidney disease; I12.0 Hypertensive chronic kidney disease with stage 5 chronic kidney disease or end stage renal disease; N18.6 End stage renal disease; Z99.2 Dependence on renal dialysis; E78.5 Hyperlipidemia, unspecified; I69.954 Hemiplegia and hemiparesis following unspecified cerebrovascular disease affecting left non-dominant side; I87.2 Venous insufficiency (chronic) (peripheral); I27.20 Pulmonary hypertension, unspecified; E66.01 Morbid (severe) obesity due to excess calories; Z68.33 Body mass index [BMI] 33.0-33.9, adult; K21.9 Gastro-esophageal reflux disease without esophagitis; M19.90 Unspecified osteoarthritis, unspecified site; M10.9 Gout, unspecified; M81.0 Age-related osteoporosis without current pathological fracture; Z89.511 Acquired absence of right leg below knee; Z98.42 Cataract extraction status, left eye; Z98.41 Cataract extraction status, right eye; Z79.4 Long term (current) use of insulin; Z79.01 Long term (current) use of anticoagulants; Z87.440 Personal history of urinary (tract) infections
CPT/HCPCS: 36415; 51701; 70450; 71046; 80053; 81001; 85025; 85610; 85730; 87077; 87086; 87186; 93005; 99284; A9270

== ENCOUNTER 2021-07-22 07:33 | Outpatient (RCR) | payer MEDICARE, OTHER, SELFPAY ==
--- NOTE | 2021-05-13 09:46 | PM.IMHP ---
H&P: HPI History of Present Illness Date/Time: 05/13/21 09:46 Chief Complaint: Right BKA stump wound Narrative: Patient returns to [facility]. Status post right below-knee amputation. Now at home with daily dressing changes. Using silver general Marylin for the 1 ulcer that remains. Stump shrinkage Awaiting edema control but unable to start prosthetic fitting. Review of Systems Constitutional: Constitutional: Reports no additional constitutional complaints, Denies chills, Denies fatigue, Denies fever(s), Denies headache(s) and Denies weakness Eyes: Eyes: Denies change in vision ENT: Reports Normal hearing present and Denies headache(s) Cardiovascular: Cardiovascular: Denies chest pain, Reports pedal edema and Reports edema Respiratory: Respiratory: Denies cough, Denies dyspnea and Denies wheezing Gastrointestinal: Gastrointestinal: Denies constipation, Denies diarrhea, Denies nausea and Denies vomiting Genitourinary: Genitourinary: Reports no additional female genitourinary complaints Musculoskeletal: Musculoskeletal: Reports as per HPI, Reports numbness and Reports tingling Integumentary/Breasts: Skin/Breast: Reports as per HPI Neurologic: Reports as per HPI, Reports Normal hearing present and Denies headache(s) Psychiatric: Psychiatric: Reports no additional psychiatric complaints Endocrine: Endocrine: Reports no additional endocrine complaints and Denies fatigue Hematologic/Lymphatic: Hematologic/Lymphatic: Reports no additional hematologic/lymphatic complaints Allergic/Immunologic: Allergic/Immunologic: Reports no additional allergic/immunologic complaints and Denies wheezing [facility] Past Medical History Medical History Anxiety and depression Arthritis Benign thyroid cyst Evaluated by ultrasound a couple of years ago per patient report. Cerebrovascular accident Due to embolic event following a shoulder fracture 2016 with chronic mild left-sided weakness. Chronic anemia Chronic venous stasis dermatitis of both lower extremities Diabetic gastroparesis Diabetic neuropathy Diabetic retinopathy of both eyes End-stage renal disease on hemodialysis Previously on peritoneal dialysis. Gastroesophageal reflux disease Gout Grade II diastolic dysfunction Noted on echo on 07/04/2019. EF 55-60%. 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 Moderate pulmonary hypertension Noted on echo on 07/04/2019 with estimated pulmonary arterial systolic pressure on 53 mmHg. Morbid obesity Osteomyelitis of right foot Osteoporosis Retinal detachment Right knee pain Shingles Splenic infarct (07/07/19) Venous stasis dermatitis of right lower extremity Surgical History Surgical History History of bilateral cataract extraction (2009) History of total hysterectomy with bilateral salpingo-oophorectomy (BSO) For benign ovarian mass. Proliferative diabetic retinopathy with history of surgery Status post excisional debridement (~10/2020) Debridement of diabetic foot ulcer and osteomyelitis of right foot. Status post glaucoma surgery Surgically constructed arteriovenous fistula (2015) Family History Family History Sibling Family history of alcoholism Mother Metastatic colon cancer in female Father Cancer Of the neck due to chemical exposure Son Heroin overdose Her youngest son Motor vehicle collision Her 2nd youngest son Other Hypertension Social History Social History Social History: Surrogate decision maker: Satya Rodriguez, son. Code status: Full code. Smoking status: Never smoker Second hand tobacco smoke exposure: N
--- NOTE | 2021-05-27 09:22 | PM.IMHP ---
H&P: HPI History of Present Illness Date/Time: 05/27/21 09:22 Chief Complaint: Wound dehiscence right below-knee amputation, left ankle injury Narrative: Patient returns to [facility]. Status post right below-knee amputation. Now at home with daily dressing changes. Using silver gel and Marylin for the 1 ulcer that remains. Stump shrinkage Awaiting edema control but unable to start prosthetic fitting. New injury left ankle- hit on closet door 1 week ago. Review of Systems Constitutional: Constitutional: Reports no additional constitutional complaints, Denies chills, Denies fatigue, Denies fever(s), Denies headache(s) and Denies weakness Eyes: Eyes: Denies change in vision ENT: Reports Normal hearing present and Denies headache(s) Cardiovascular: Cardiovascular: Denies chest pain, Reports pedal edema and Reports edema Respiratory: Respiratory: Denies cough, Denies dyspnea and Denies wheezing Gastrointestinal: Gastrointestinal: Denies constipation, Denies diarrhea, Denies nausea and Denies vomiting Genitourinary: Genitourinary: Reports no additional female genitourinary complaints Musculoskeletal: Musculoskeletal: Reports as per HPI, Reports numbness and Reports tingling Integumentary/Breasts: Skin/Breast: Reports as per HPI Neurologic: Reports as per HPI, Reports Normal hearing present and Denies headache(s) Psychiatric: Psychiatric: Reports no additional psychiatric complaints Endocrine: Endocrine: Reports no additional endocrine complaints and Denies fatigue Hematologic/Lymphatic: Hematologic/Lymphatic: Reports no additional hematologic/lymphatic complaints Allergic/Immunologic: Allergic/Immunologic: Reports no additional allergic/immunologic complaints and Denies wheezing [facility] Past Medical History Medical History (Updated 05/27/21 @ 09:26 by Rios Varma MD) Anxiety and depression Arthritis Benign thyroid cyst Evaluated by ultrasound a couple of years ago per patient report. Cerebrovascular accident Due to embolic event following a shoulder fracture 2016 with chronic mild left-sided weakness. Chronic anemia Chronic venous stasis dermatitis of both lower extremities Contusion of ankle, left Diabetic gastroparesis Diabetic neuropathy Diabetic retinopathy of both eyes End-stage renal disease on hemodialysis Previously on peritoneal dialysis. Gastroesophageal reflux disease Gout Grade II diastolic dysfunction Noted on echo on 07/04/2019. EF 55-60%. 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 Moderate pulmonary hypertension Noted on echo on 07/04/2019 with estimated pulmonary arterial systolic pressure on 53 mmHg. Morbid obesity Osteomyelitis of right foot Osteoporosis Retinal detachment Right knee pain Shingles Splenic infarct (07/07/19) Venous stasis dermatitis of right lower extremity Surgical History Surgical History History of bilateral cataract extraction (2009) History of total hysterectomy with bilateral salpingo-oophorectomy (BSO) For benign ovarian mass. Proliferative diabetic retinopathy with history of surgery Status post excisional debridement (~10/2020) Debridement of diabetic foot ulcer and osteomyelitis of right foot. Status post glaucoma surgery Surgically constructed arteriovenous fistula (2015) Family History Family History Sibling Family history of alcoholism Mother Metastatic colon cancer in female Father Cancer Of the neck due to chemical exposure Son Heroin overdose Her youngest son Motor vehicle collision Her 2nd youngest son Other Hypertension Social History Social History Social History: Surrogate decision m
--- NOTE | 2021-06-24 08:37 | PM.IMHP ---
H&P: HPI History of Present Illness Date/Time: 06/24/21 08:37 Chief Complaint: Right leg amputation with postoperative wound dehiscence Narrative: Patient returns to [facility]. Status post right below-knee amputation. Daily dressing changes using silver gel and Marylin. Stump shrinkage started 4 days ago. Review of Systems Constitutional: Constitutional: Reports no additional constitutional complaints, Denies chills, Denies fatigue, Denies fever(s), Denies headache(s) and Denies weakness Eyes: Eyes: Denies change in vision ENT: Reports Normal hearing present and Denies headache(s) Cardiovascular: Cardiovascular: Denies chest pain, Reports pedal edema and Reports edema Respiratory: Respiratory: Denies cough, Denies dyspnea and Denies wheezing Gastrointestinal: Gastrointestinal: Denies constipation, Denies diarrhea, Denies nausea and Denies vomiting Genitourinary: Genitourinary: Reports no additional female genitourinary complaints Musculoskeletal: Musculoskeletal: Reports as per HPI, Reports numbness and Reports tingling Integumentary/Breasts: Skin/Breast: Reports as per HPI Neurologic: Reports as per HPI, Reports Normal hearing present and Denies headache(s) Psychiatric: Psychiatric: Reports no additional psychiatric complaints Endocrine: Endocrine: Reports no additional endocrine complaints and Denies fatigue Hematologic/Lymphatic: Hematologic/Lymphatic: Reports no additional hematologic/lymphatic complaints Allergic/Immunologic: Allergic/Immunologic: Reports no additional allergic/immunologic complaints and Denies wheezing PMFSH Past Medical History Medical History Anxiety and depression Arthritis Benign thyroid cyst Evaluated by ultrasound a couple of years ago per patient report. Cerebrovascular accident Due to embolic event following a shoulder fracture 2016 with chronic mild left-sided weakness. Chronic anemia Chronic venous stasis dermatitis of both lower extremities Contusion of ankle, left Diabetic gastroparesis Diabetic neuropathy Diabetic retinopathy of both eyes End-stage renal disease on hemodialysis Previously on peritoneal dialysis. Gastroesophageal reflux disease Gout Grade II diastolic dysfunction Noted on echo on 07/04/2019. EF 55-60%. 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 Moderate pulmonary hypertension Noted on echo on 07/04/2019 with estimated pulmonary arterial systolic pressure on 53 mmHg. Morbid obesity Osteomyelitis of right foot Osteoporosis Retinal detachment Right knee pain Shingles Splenic infarct (07/07/19) Venous stasis dermatitis of right lower extremity Surgical History Surgical History History of bilateral cataract extraction (2009) History of total hysterectomy with bilateral salpingo-oophorectomy (BSO) For benign ovarian mass. Proliferative diabetic retinopathy with history of surgery Status post excisional debridement (~10/2020) Debridement of diabetic foot ulcer and osteomyelitis of right foot. Status post glaucoma surgery Surgically constructed arteriovenous fistula (2015) Family History Family History Sibling Family history of alcoholism Mother Metastatic colon cancer in female Father Cancer Of the neck due to chemical exposure Son Heroin overdose Her youngest son Motor vehicle collision Her 2nd youngest son Other Hypertension Social History Social History Social History: Surrogate decision maker: Satya Rodriguez, dennis. Code status: Full code. Smoking status: Never smoker Second hand tobacco smoke exposure: No Alcohol intake: never S
--- NOTE | 2021-07-22 09:02 | PM.IMHP ---
H&P: HPI History of Present Illness Date/Time: 07/22/21 09:02 Chief Complaint: Right below-knee amputation with wound dehiscence Narrative: Right leg amputation complicated with postoperative wound dehiscence, 7 months postop. Narrative: Patient returns to [facility]. Status post right below-knee amputation. Daily dressing changes using silver gel and [place]. Stump shrinkage started 4 weeks ago. Review of Systems Constitutional: Constitutional: Reports no additional constitutional complaints, Denies chills, Denies fatigue, Denies fever(s), Denies headache(s) and Denies weakness Eyes: Eyes: Denies change in vision ENT: Reports Normal hearing present and Denies headache(s) Cardiovascular: Cardiovascular: Denies chest pain, Reports pedal edema and Reports edema Respiratory: Respiratory: Denies cough, Denies dyspnea and Denies wheezing Gastrointestinal: Gastrointestinal: Denies constipation, Denies diarrhea, Denies nausea and Denies vomiting Genitourinary: Genitourinary: Reports no additional female genitourinary complaints Musculoskeletal: Musculoskeletal: Reports as per HPI, Reports numbness and Reports tingling Integumentary/Breasts: Skin/Breast: Reports as per HPI Neurologic: Reports as per HPI, Reports Normal hearing present and Denies headache(s) Psychiatric: Psychiatric: Reports no additional psychiatric complaints Endocrine: Endocrine: Reports no additional endocrine complaints and Denies fatigue Hematologic/Lymphatic: Hematologic/Lymphatic: Reports no additional hematologic/lymphatic complaints Allergic/Immunologic: Allergic/Immunologic: Reports no additional allergic/immunologic complaints and Denies wheezing PMFSH Past Medical History Medical History Anxiety and depression Arthritis Benign thyroid cyst Evaluated by ultrasound a couple of years ago per patient report. Cerebrovascular accident Due to embolic event following a shoulder fracture 2016 with chronic mild left-sided weakness. Chronic anemia Chronic venous stasis dermatitis of both lower extremities Contusion of ankle, left Diabetic gastroparesis Diabetic neuropathy Diabetic retinopathy of both eyes End-stage renal disease on hemodialysis Previously on peritoneal dialysis. Gastroesophageal reflux disease Gout Grade II diastolic dysfunction Noted on echo on 07/04/2019. EF 55-60%. 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 Moderate pulmonary hypertension Noted on echo on 07/04/2019 with estimated pulmonary arterial systolic pressure on 53 mmHg. Morbid obesity Osteomyelitis of right foot Osteoporosis Retinal detachment Right knee pain Shingles Splenic infarct (07/07/19) Venous stasis dermatitis of right lower extremity Surgical History Surgical History History of bilateral cataract extraction (2009) History of total hysterectomy with bilateral salpingo-oophorectomy (BSO) For benign ovarian mass. Proliferative diabetic retinopathy with history of surgery Status post excisional debridement (~10/2020) Debridement of diabetic foot ulcer and osteomyelitis of right foot. Status post glaucoma surgery Surgically constructed arteriovenous fistula (2015) Family History Family History Sibling Family history of alcoholism Mother Metastatic colon cancer in female Father Cancer Of the neck due to chemical exposure Son Heroin overdose Her youngest son Motor vehicle collision Her 2nd youngest son Other Hypertension Social History Social History Social History: Surrogate decision maker: Satya Rodriguez, son. Code status: Full code. Smoking
== END 2021-08-11 23:59 | disposition home or self-care (01) ==
LOC: ANHWOC 07:33
PROVIDERS: PCP Internal Medicine; Visit Provider Orthopaedic Surgery
DX: Z47.81 Encounter for orthopedic aftercare following surgical amputation (principal); Z89.511 Acquired absence of right leg below knee
CPT/HCPCS: 99212; 99213; G0463

== ENCOUNTER 2021-07-23 19:43 | Emergency (ER) | payer OTHER, MEDICAID, SELFPAY ==
[2021-07-23] VITALS (23 sets, daily range): BP systolic 144–182; BP diastolic 66–86; PULSE 67–69; RESP 16–24; TEMP 36.2–37; O2SAT 92–97
--- NOTE | ~2021-07-23 | XR_ITS ---
EXAM: XR knee RT 3V HISTORY: pain/ trauma COMPARISON: 10/21/2020 FINDINGS: Severe osteopenia. Extensive vascular calcifications. Below-knee amputation. No definitely abnormal osseous erosion, however evaluation for early infection is difficult without post amputatio n radiographs to compare. Somewhat permeative appearing change in the tibial and fibular shafts likel y a combination of disuse osteopenia and summation artifact from overlying bandage material. Moderate tricompartmental osteoarthritis of the knee. Small volume right knee joint effusion. IMPRESSION: No acute fracture or dislocation in the right knee. Post surgical changes of below knee amputation. Reviewed, dictated and finalized at location K. IMPRESSION: No acute fracture or dislocation in the right knee. Post surgical changes of be low knee amputation.
--- NOTE | ~2021-07-23 | XR_ITS ---
EXAMINATION: XR chest 1V Exam Date/Time: 07/23/2021 21:00 CDT CLINICAL HISTORY: left rib pain Comparison: 07/06/2021. RESULT: Lines, tubes, and devices: None. Lungs and pleura: Clear. Cardiomediastinal silhouette: Stable cardiomediastinal silhouette. Other: No acute osseous or upper abdominal finding. IMPRESSION: No acute cardiopulmonary process Reviewed, dictated and finalized at location K.
--- NOTE | ~2021-07-23 | CT_ITS ---
EXAMINATION: CT brain wo con DATE: 07/23/2021 20:49 INDICATION: mental status changes TECHNIQUE: Computed tomography (CT) of the head was performed without intravenous contrast. The mA wa s adjusted according to patient size. Iterative reconstruction technique was employed. The dose-lengt h product was 605.33 mGy-cm. COMPARISON: 07/14/2021 FINDINGS: Exam limited by motion artifact. No acute intracranial hemorrhage or extra-axial fluid collection. No hydrocephalus, mass, or herniation. No acute ischemic infarct. Unremarkable dural venous sinus attenuation. No acute osseous abnormality. The aerated spaces are clear. Mild atrophy and moderate chronic white matter change. Old left basal ganglia and right occipital inf arct. Atherosclerotic intracranial calcification. Bilateral lens replacements. IMPRESSION: Exam mildly limited by motion artifact, within that constraint no acute intracranial process. Reviewed, dictated and finalized at location K. IMPRESSION: Exam mildly limited by motion artifact, within that constraint no acute intracr anial process.
--- NOTE | 2021-07-23 20:30 | ECG_ITS ---
Measurements Intervals [place] Rate: 68 P: 50 DC: 174 QRS: -2 QRSD: 170 T: 123 QT: 525 QTc: 561 Interpretive Statements SINUS RHYTHM LEFT BUNDLE BRANCH BLOCK BASELINE WANDER- I, III, AVL, V4 ABNORMAL ECG Electronically Signed On 07-24-2021 8:51:24 CDT by Kaushik Valencia D.O.
--- NOTE | 2021-07-23 21:05 | PC.NURSE ---
Patient in imaging at this time.
--- NOTE | 2021-07-23 21:15 | ED.GENADULT ---
HPI - General Adult General Chief complaint: Altered Mental Status Stated complaint: confusion Time Seen by Provider: 07/23/21 20:22 History of Present Illness HPI narrative: Patient 71-year-old female who presents the emergency department with chief complaint of not feeling right and altered mental status. Patient states that over the last several days that she has been getting more and more confused. The patient states that today she started hallucinating seeing her that was . Patient reports she has history of sepsis due to MRSA bacteremia and subsequently had to have a below-knee amputation of the right lower extremity. Patient states that she has had similar symptoms and never she had a urinary tract infection and has been on Keflex for a UTI that has been requiring multiple antibiotic changes. Patient denies fever or shortness of breath reports she has had some pain in her left ribs after a fall and also reported that she bumped her right knee. The family reported that she was much clearer after she went to dialysis today where she is a Sunday. Related Data Home Medications Medication Instructions Recorded Confirmed bupropion HCl [Wellbutrin SR] 50 mg PO DAILY 05/30/19 01/28/21 amlodipine 10 mg PO DAILY 09/07/20 01/28/21 atorvastatin 20 mg PO HS 09/07/20 01/28/21 allopurinol 100 mg PO DAILY 10/21/20 01/28/21 carvedilol 25 mg PO DAILY 10/21/20 01/28/21 Allergies Allergy/AdvReac Type Severity Reaction Status Date / Time adhesive tape AdvReac Itching Verified 07/23/21 19:47 Review of Systems Review of Systems: A 10 system review of systems was completed on the patient and is negative except for what is stated in the HPI. Nursing and ancillary documentation was reviewed. [facility] Past Medical History Medical History Anxiety and depression Arthritis Benign thyroid cyst Evaluated by ultrasound a couple of years ago per patient report. Cerebrovascular accident Due to embolic event following a shoulder fracture 2015 with chronic mild left-sided weakness. Chronic anemia Chronic venous stasis dermatitis of both lower extremities Contusion of ankle, left Diabetic gastroparesis Diabetic neuropathy Diabetic retinopathy of both eyes End-stage renal disease on hemodialysis Previously on peritoneal dialysis. Gastroesophageal reflux disease Gout Grade II diastolic dysfunction Noted on echo on 07/04/2019. EF 55-60%. 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 Moderate pulmonary hypertension Noted on echo on 07/04/2019 with estimated pulmonary arterial systolic pressure on 53 mmHg. Morbid obesity Osteomyelitis of right foot Osteoporosis Retinal detachment Right knee pain Shingles Splenic infarct (07/07/19) Venous stasis dermatitis of right lower extremity Surgical History Surgical History History of bilateral cataract extraction (2009) History of total hysterectomy with bilateral salpingo-oophorectomy (BSO) For benign ovarian mass. Proliferative diabetic retinopathy with history of surgery Status post excisional debridement (~10/2020) Debridement of diabetic foot ulcer and osteomyelitis of right foot. Status post glaucoma surgery Surgically constructed arteriovenous fistula (2015) Family History Family History Sibling Family history of alcoholism Mother Metastatic colon cancer in female Father Cancer Of the neck due to chemical exposure Son Heroin overdose Her youngest son Motor vehicle collision Her 2nd youngest son Other Hypertension Social History Social History Walter
[2021-07-23 21:53] LABS: Basophils Absolute Auto 0.1 K/mm3 (0.0-0.1); Eosinophils Absolute Auto 0.1 K/mm3 (0-0.3); Eosinophils Percent Auto 1.7 % (0-4.4); Hematocrit 39.3 % (37.0-47.0); Hemoglobin 12.6 g/dL (12.0-15.0); Immature Granulocyte Absolute 0.02 K/mm3 (0.00-0.031); Immature Granulocyte Percent A 0.3 % (0-0.5); Lymphocytes Absolute Auto 0.62 K/mm3 (0.9-3.2); Lymphocytes Percent Auto 10.4 % (18.3-44.2); Mean Corpuscular HGB Conc 32.1 g/dl (32-36); Mean Corpuscular Hemoglobin 33.7 pg (26-34); Mean Corpuscular Volume 105.1 fl (80-100); Mean Platelet Volume 11.1 fl (7.4-10.4); Monocytes Absolute Auto 0.5 K/mm3 (0.1-0.6); Monocytes Percent Auto 8.4 % (2.6-8.5); Neutrophils Absolute Auto 4.7 K/mm3 (1.3-6.7); Neutrophils Percent Auto 78.2 % (45.5-73.1); Platelet Count Result 205 k/mm3 (150-375); Red Blood Count 3.74 M/mm3 (4.2-5.4); Red Cell Distribution Width 15.4 % (11.5-14.5)
[2021-07-23 21:55] LABS: Appearance Urine Clear (Clear); Bilirubin Urine 1+ (Negative); Blood Urine Trace-lysed (Negative); Color Urine Yellow (Yellow); Glucose Urine UA Trace mg/dL (Negative); Ketones Urine Trace mg/dL (Negative); Leukocyte Esterase Ur Negative LEU/UL (Negative); Nitrate Urine Negative (Negative); Protein Urine 3+ mg/dL (Negative); pH Urine 7.5 (5.0-9.0)
[2021-07-23 22:02] LABS: Add Urine Microscopic? YES; Mucus Urine Rare /lpf; Squamous Epithelial Cell Urine Moderate /hpf (Few)
[2021-07-23 22:04] LABS: INR 1.4; Lactic Acid Reflex 1.7 mmol/L (0.7-2.0); Prothrombin Time 16.3 Seconds (11.1-14.7)
[2021-07-23 22:05] LABS: Partial Thromboplastin Time 37.2 SECONDS (22.3-36.8)
[2021-07-23 22:21] LABS: Alanine Aminotransferase 30 U/L (4-35); Albumin Level 4.1 g/dL (3.5-5.1); Alkaline Phosphatase 316 U/L (38-126); Anion Gap 11 mmol/L (8-16); Aspartate Amino Transferase 37 U/L (14-36); Bilirubin,Total 1.7 mg/dL (0.2-1.3); Blood Urea Nitrogen 45 mg/dL (7-17); Calcium 9.1 mg/dL (8.4-10.2); Carbon Dioxide 33 mmol/L (22-30); Chloride 95 mmol/L (98-107); Estimated CRCL calculation 13 ml/min; Estimated Glomerular Filt Rate 12; Glucose 208 mg/dL (65-110); Magnesium 2.3 mg/dL (1.6-2.3); Sodium 139 mmol/L (137-145)
[2021-07-23 22:32] LABS: Troponin I 0.032 ng/mL (0.000-0.034)
[2021-07-24 00:13] VITALS: BP 157/86; PULSE 67; RESP 20; TEMP 36.7; O2SAT 95
--- NOTE | 2021-07-24 00:15 | PC.NURSE ---
called [facility] to request transport patient to home. ETA [phone]
--- NOTE | 2021-07-24 01:42 | PC.NURSE ---
[facility] here
--- NOTE | 2021-07-24 01:47 | PC.NURSE ---
[facility] here to transport patient back home.
[2021-07-24 01:53] VITALS: PULSE 66; RESP 12; O2SAT 97
== END 2021-07-24 01:53 | disposition home or self-care (01) ==
PROVIDERS: Emergency Provider Emergency Medicine; PCP Internal Medicine
DX: R53.1 Weakness (principal); I69.954 Hemiplegia and hemiparesis following unspecified cerebrovascular disease affecting left non-dominant side; D64.9 Anemia, unspecified; I87.2 Venous insufficiency (chronic) (peripheral); E11.22 Type 2 diabetes mellitus with diabetic chronic kidney disease; I12.0 Hypertensive chronic kidney disease with stage 5 chronic kidney disease or end stage renal disease; N18.6 End stage renal disease; E11.43 Type 2 diabetes mellitus with diabetic autonomic (poly)neuropathy; K31.84 Gastroparesis; E11.40 Type 2 diabetes mellitus with diabetic neuropathy, unspecified; E11.3593 Type 2 diabetes mellitus with proliferative diabetic retinopathy without macular edema, bilateral; E78.5 Hyperlipidemia, unspecified; I27.20 Pulmonary hypertension, unspecified; E66.01 Morbid (severe) obesity due to excess calories; Z68.36 Body mass index [BMI] 36.0-36.9, adult; M10.9 Gout, unspecified; M81.0 Age-related osteoporosis without current pathological fracture; F41.9 Anxiety disorder, unspecified; F32.A Depression, unspecified; Z99.2 Dependence on renal dialysis; Z89.511 Acquired absence of right leg below knee; Z98.42 Cataract extraction status, left eye; Z98.41 Cataract extraction status, right eye; I44.7 Left bundle-branch block, unspecified; Z79.01 Long term (current) use of anticoagulants; Z79.4 Long term (current) use of insulin
CPT/HCPCS: 36415; 51701; 70450; 71045; 73562; 80053; 81001; 83605; 83735; 84484; 85025; 85610; 85730; 87040; 93005; 99284

== ENCOUNTER 2021-07-29 00:50 | Emergency (ER) | payer OTHER, MEDICAID, SELFPAY ==
--- NOTE | ~2021-07-29 | XR_ITS ---
EXAMINATION: XR chest 2V DATE: 07/29/2021 01:48 INDICATION: Chest pain TECHNIQUE: AP and lateral views of the chest are obtained. COMPARISON: 07/23/2021 FINDINGS: The lungs are free of acute opacities. There is no pleural effusion or pneumothorax. Cardio megaly is noted. There is mild thoracic spondylosis. IMPRESSION: 1. Cardiomegaly. Reviewed, dictated and finalized at location A. IMPRESSION: 1. Cardiomegaly.
--- NOTE | ~2021-07-29 | XR_ITS ---
EXAMINATION: XR hip RT 2V w AP pelvis INDICATION: Pelvic pain after fall TECHNIQUE: AP view the pelvis and two views of the right hip are obtained. COMPARISON: None available FINDINGS: Bone alignment is normal. There is no fracture. There is mild osteoarthritis of the hips. C alcified atherosclerosis is noted. IMPRESSION: 1. No acute osseous abnormality. Reviewed, dictated and finalized at location A.
--- NOTE | ~2021-07-29 | CT_ITS ---
EXAMINATION: CT brain wo con INDICATION: Head injury COMPARISON: 07/23/2021 TECHNIQUE: Standard unenhanced head CT. The dose-length product (DLP) was 681.00 mGy-cm. The mA was a djusted according to patient size. Iterative reconstruction technique was employed. FINDINGS: There is no acute intraparenchymal hemorrhage. No evidence of mass lesion. No evidence of a cute infarction. There are old infarcts in the right occipital lobe and left basal ganglia. There is mild periventricular and subcortical hypodensity probably related to small vessel ischemic disease. T here is mild prominence of the sulci and ventricles related to cerebral atrophy. Intracranial calcifi ed cerebral atherosclerosis is noted. There are no extra-axial collections. There is no mass effect o r midline shift. Changes in the globes are likely from ocular lens surgery. There is mild mucosal thi ckening of the paranasal sinuses. IMPRESSION: 1. Areas of prior infarction without acute intracranial abnormality. 2. Age related findings. Reviewed, dictated and finalized at location A.
[2021-07-29 00:52] VITALS: BP 163/68; PULSE 64; RESP 14; TEMP 36.7; O2SAT 97
[2021-07-29 00:57] VITALS: RESP 14; O2SAT 97
--- NOTE | 2021-07-29 00:57 | ECG_ITS ---
Measurements Intervals [place] Rate: 64 P: 53 NH: 181 QRS: -10 QRSD: 177 T: 131 QT: 536 QTc: 557 Interpretive Statements SINUS RHYTHM LEFT BUNDLE BRANCH BLOCK BASELINE WANDER- V3 ABNORMAL ECG Electronically Signed On 07-29-2021 6:33:47 CDT by Kaushik Valencia D.O.
[2021-07-29 01:10] LABS: Basophils Absolute Auto 0.1 K/mm3 (0.0-0.1); Basophils Percent Auto 0.6 % (0.2-1.2); Eosinophils Absolute Auto 0.3 K/mm3 (0-0.3); Hematocrit 42.6 % (37.0-47.0); Hemoglobin 13.4 g/dL (12.0-15.0); Immature Granulocyte Absolute 0.02 K/mm3 (0.00-0.031); Immature Granulocyte Percent A 0.3 % (0-0.5); Lymphocytes Absolute Auto 0.73 K/mm3 (0.9-3.2); Lymphocytes Percent Auto 9.4 % (18.3-44.2); Mean Corpuscular HGB Conc 31.5 g/dl (32-36); Mean Corpuscular Hemoglobin 33.7 pg (26-34); Mean Platelet Volume 10.7 fl (7.4-10.4); Monocytes Absolute Auto 0.6 K/mm3 (0.1-0.6); Monocytes Percent Auto 7.4 % (2.6-8.5); Neutrophils Absolute Auto 6.1 K/mm3 (1.3-6.7); Neutrophils Percent Auto 78.3 % (45.5-73.1); Platelet Count Result 178 k/mm3 (150-375); Red Blood Count 3.98 M/mm3 (4.2-5.4); White Blood Count 7.8 K/mm3 (4.5-10.0)
--- NOTE | 2021-07-29 01:36 | PC.NURSE ---
PT. to CT
[2021-07-29 01:47] LABS: INR 1.4; Partial Thromboplastin Time 33.7 SECONDS (22.3-36.8); Prothrombin Time 16.4 Seconds (11.1-14.7)
[2021-07-29 02:21] VITALS: BP 170/65; PULSE 66; RESP 14; O2SAT 100
[2021-07-29 02:57] LABS: Alanine Aminotransferase 21 U/L (6-35); Albumin Level 3.5 g/dL (3.5-5.1); Alkaline Phosphatase 231 U/L (38-126); Aspartate Amino Transferase 45 U/L (14-36); Bilirubin,Total 2.1 mg/dL (0.2-1.3); Blood Urea Nitrogen 26 mg/dL (7-17); Calcium 8.7 mg/dL (8.4-10.2); Carbon Dioxide > 40 mmol/L (22-30); Chloride 93 mmol/L (98-107); Estimated Glomerular Filt Rate 17; Glucose 180 mg/dL (65-110); Lipase 98 U/L (23-300); Potassium 3.3 mmol/L (3.4-5.0); Sodium 136 mmol/L (137-145)
[2021-07-29 03:00] VITALS: BP 143/59; PULSE 65; RESP 14; O2SAT 97
--- NOTE | 2021-07-29 04:07 | ED.FALL ---
HPI - Fall General Chief Complaint: Fall Stated Complaint: GLF Time Seen by Provider: 07/29/21 01:06 History of Present Illness HPI Narrative: Patient states that she was lying on the couch, accidentally rolled off and landed on her hip, denies any chest pain other than sharp Pain left lower chest from when she had fallen last week. She thinks she might might have hit her head, she is on Eliquis. Endorses pain to her tailbone, left chest. Related Data Home Medications Medication Instructions Recorded Confirmed bupropion HCl [Wellbutrin SR] 50 mg PO DAILY 05/30/19 01/28/21 amlodipine 10 mg PO DAILY 09/07/20 01/28/21 atorvastatin 20 mg PO HS 09/07/20 01/28/21 allopurinol 100 mg PO DAILY 10/21/20 01/28/21 carvedilol 25 mg PO DAILY 10/21/20 01/28/21 Allergies Allergy/AdvReac Type Severity Reaction Status Date / Time adhesive tape AdvReac Itching Verified 07/29/21 00:58 Review of Systems Review of Systems: All systems reviewed & are unremarkable except as noted in HPI and below PMFSH Past Medical History Medical History Anxiety and depression Arthritis Benign thyroid cyst Evaluated by ultrasound a couple of years ago per patient report. Cerebrovascular accident Due to embolic event following a shoulder fracture 2016 with chronic mild left-sided weakness. Chronic anemia Chronic venous stasis dermatitis of both lower extremities Contusion of ankle, left Diabetic gastroparesis Diabetic neuropathy Diabetic retinopathy of both eyes End-stage renal disease on hemodialysis Previously on peritoneal dialysis. Gastroesophageal reflux disease Gout Grade II diastolic dysfunction Noted on echo on 07/04/2019. EF 55-60%. 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 Moderate pulmonary hypertension Noted on echo on 07/04/2019 with estimated pulmonary arterial systolic pressure on 53 mmHg. Morbid obesity Osteomyelitis of right foot Osteoporosis Retinal detachment Right knee pain Shingles Splenic infarct (07/07/19) Venous stasis dermatitis of right lower extremity Surgical History Surgical History History of bilateral cataract extraction (2009) History of total hysterectomy with bilateral salpingo-oophorectomy (BSO) For benign ovarian mass. Proliferative diabetic retinopathy with history of surgery Status post excisional debridement (~10/2020) Debridement of diabetic foot ulcer and osteomyelitis of right foot. Status post glaucoma surgery Surgically constructed arteriovenous fistula (2015) Family History Family History Sibling Family history of alcoholism Mother Metastatic colon cancer in female Father Cancer Of the neck due to chemical exposure Son Heroin overdose Her youngest son Motor vehicle collision Her 2nd youngest son Other Hypertension Social History Social History Social History: Surrogate decision maker: Satya Rodriguez, son. Code status: Full code. Smoking status: Never smoker Second hand tobacco smoke exposure: No Alcohol intake: never Substance use: never Substance use type: does not use Additional living arrangements comments: Lives alone in [place]. . She had a total of 4 sons; the 2 eldest sons are still living and are relatively healthy. 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 Gender identity (if verbalized by the patient): Female Spiritual care concerns: No Exam Narrative: EXAMINATION OF ORGAN SYSTEMS/BODY AREAS: Constitutional: Vital signs per nursing GENERAL:[No acute distress, non-toxic appearing.
[2021-07-29] MEDS: ACETAMINOPHEN 325 MG TABLET 650 MG PO (04:13)
--- NOTE | 2021-07-29 04:18 | PC.NURSE ---
Call [facility] at [phone]. ETA [phone].
[2021-07-29 04:24] VITALS: BP 167/65; PULSE 65; RESP 14; O2SAT 95
== END 2021-07-29 05:12 | disposition home or self-care (01) ==
PROVIDERS: Emergency Provider Emergency Medicine; PCP Internal Medicine
DX: S09.90XA Unspecified injury of head, initial encounter (principal); S79.911A Unspecified injury of right hip, initial encounter; I69.954 Hemiplegia and hemiparesis following unspecified cerebrovascular disease affecting left non-dominant side; D64.9 Anemia, unspecified; E11.22 Type 2 diabetes mellitus with diabetic chronic kidney disease; I12.0 Hypertensive chronic kidney disease with stage 5 chronic kidney disease or end stage renal disease; N18.6 End stage renal disease; E11.40 Type 2 diabetes mellitus with diabetic neuropathy, unspecified; E11.43 Type 2 diabetes mellitus with diabetic autonomic (poly)neuropathy; E11.319 Type 2 diabetes mellitus with unspecified diabetic retinopathy without macular edema; K31.84 Gastroparesis; E11.69 Type 2 diabetes mellitus with other specified complication; M86.9 Osteomyelitis, unspecified; I27.20 Pulmonary hypertension, unspecified; I87.2 Venous insufficiency (chronic) (peripheral); M81.0 Age-related osteoporosis without current pathological fracture; F32.9 Major depressive disorder, single episode, unspecified; F41.9 Anxiety disorder, unspecified; Z79.4 Long term (current) use of insulin; Z79.01 Long term (current) use of anticoagulants; Z98.42 Cataract extraction status, left eye; Z98.41 Cataract extraction status, right eye; Z89.511 Acquired absence of right leg below knee; I44.7 Left bundle-branch block, unspecified; W08.XXXA Fall from other furniture, initial encounter
CPT/HCPCS: 36415; 70450; 71046; 73502; 80053; 83690; 84484; 85025; 85610; 85730; 93005; 99284; A9270

== ENCOUNTER 2021-12-16 12:39 | Outpatient (CLI) | payer MEDICARE, MEDICAID, SELFPAY ==
--- NOTE | ~2021-12-16 | US_ITS ---
EXAMINATION: US retroperitoneal comp DATE: 12/16/2021 13:43 INDICATION: Chronic cystitis without hematuria TECHNIQUE: Multiple ultrasound grayscale images of the kidneys were obtained. COMPARISON: CT abdomen and pelvis dated 07/05/2019 FINDINGS: The right kidney measures 12.2 x 4.2 x 5.0 cm. The left kidney measures 10.7 x 4.4 x 5.5 cm. The kidn eys demonstrate normal echogenicity. There is no hydronephrosis in either kidney. No stones identifi ed. There are some anechoic fluid in the pelvis which does not appear clearly confined within the shruthi dder most likely represents small amount of ascites. Bladder is not definitively visualized. IMPRESSION: 1. Normal kidneys without hydronephrosis. 2. Small amount of ascites in the pelvis. Bladder is not visualized. Reviewed, dictated and finalized at location A.
== END 2021-12-16 12:40 | disposition home or self-care (01) ==
PROVIDERS: PCP Internal Medicine; Visit Provider Nurse Practitioner Adult Health
DX: N30.20 Other chronic cystitis without hematuria (principal)
CPT/HCPCS: 76770

== ENCOUNTER 2022-08-18 11:25 | Emergency (ER) | payer MEDICARE, MEDICAID, SELFPAY ==
[2022-08-18 11:31] VITALS: BP 145/65; PULSE 70; RESP 18; TEMP 36.6; O2SAT 97
--- NOTE | 2022-08-18 12:25 | ED.SKABFB ---
HPI - Skin/Abscess/Foreign Bdy General Chief complaint: Skin/Abscess/Foreign Body Stated complaint: skin infection Time Seen by Provider: 08/18/22 12:25 Source: patient and EMS Mode of arrival: EMS History of Present Illness HPI narrative: Patient is 72 years old white female came with pain, itching and redness at the right groin area and lower abdomen and right upper thigh. Started few days ago. She denies any fever, chills, nausea, vomiting. History of diabetes, on dialysis, missed dialysis yesterday, Related Data Home Medications Medication Instructions Recorded Confirmed bupropion HCl 150 mg tablet,12 hr 50 mg PO DAILY 05/30/19 03/01/22 sustained-release (Wellbutrin SR) amlodipine 10 mg tablet 10 mg PO DAILY 09/07/20 03/01/22 atorvastatin 40 mg tablet 20 mg PO HS 09/07/20 03/01/22 allopurinol 100 mg tablet 100 mg PO DAILY 10/21/20 03/01/22 carvedilol 25 mg tablet 25 mg PO DAILY 10/21/20 03/01/22 Allergies Allergy/AdvReac Type Severity Reaction Status Date / Time adhesive tape AdvReac Itching Verified 03/01/22 10:02 Review of Systems Review of Systems: All systems reviewed & are unremarkable except as noted in HPI and below PMFSH Past Medical History Medical History Anxiety and depression Arthritis Benign thyroid cyst Evaluated by ultrasound a couple of years ago per patient report. Cerebrovascular accident Due to embolic event following a shoulder fracture 2016 with chronic mild left-sided weakness. Chronic anemia Chronic venous stasis dermatitis of both lower extremities Contusion of ankle, left Diabetic gastroparesis Diabetic neuropathy Diabetic retinopathy of both eyes End-stage renal disease on hemodialysis Previously on peritoneal dialysis. Gastroesophageal reflux disease Gout Grade II diastolic dysfunction Noted on echo on 07/04/2019. EF 55-60%. 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 Moderate pulmonary hypertension Noted on echo on 07/04/2019 with estimated pulmonary arterial systolic pressure on 53 mmHg. Morbid obesity Osteomyelitis of right foot Osteoporosis Retinal detachment Right knee pain Shingles Splenic infarct (07/07/19) Venous stasis dermatitis of right lower extremity Surgical History Surgical History History of bilateral cataract extraction (2009) History of total hysterectomy with bilateral salpingo-oophorectomy (BSO) For benign ovarian mass. Proliferative diabetic retinopathy with history of surgery Status post excisional debridement (~10/2020) Debridement of diabetic foot ulcer and osteomyelitis of right foot. Status post glaucoma surgery Surgically constructed arteriovenous fistula (2015) Family History Family History Sibling Family history of alcoholism Mother Metastatic colon cancer in female Father Cancer Of the neck due to chemical exposure Son Heroin overdose Her youngest son Motor vehicle collision Her 2nd youngest son Other Hypertension Social History Social History Social History: Surrogate decision maker: Satya Rodriguez, dennis. Code status: Full code. Smoking status: Never smoker Second hand tobacco smoke exposure: No Alcohol intake: never Substance use: never Substance use type: does not use Living arrangements: senior living Additional living arrangements comments: Lives alone in [place]. . She had a total of 4 sons; the 2 eldest sons are still living and are relatively healthy. 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 Gender id
[2022-08-18] MEDS: FLUCONAZOLE 150 MG TABLET 200 MG PO (12:57)
[2022-08-18] MEDS: HYDROcodone/acetaminophen (*CRX) 5-325 MG TABLET 1 TAB PO (12:57)
[2022-08-18 13:01] VITALS: BP 134/74; PULSE 73; RESP 18; O2SAT 92
== END 2022-08-18 13:19 | disposition home or self-care (01) ==
LOC: ANHED 12:45
PROVIDERS: Emergency Provider Emergency Medicine; PCP Internal Medicine
DX: L30.4 Erythema intertrigo (principal); B37.2 Candidiasis of skin and nail; E11.22 Type 2 diabetes mellitus with diabetic chronic kidney disease; I12.0 Hypertensive chronic kidney disease with stage 5 chronic kidney disease or end stage renal disease; N18.6 End stage renal disease; Z99.2 Dependence on renal dialysis; D64.9 Anemia, unspecified; I87.2 Venous insufficiency (chronic) (peripheral); E11.43 Type 2 diabetes mellitus with diabetic autonomic (poly)neuropathy; K31.84 Gastroparesis; E11.40 Type 2 diabetes mellitus with diabetic neuropathy, unspecified; E11.319 Type 2 diabetes mellitus with unspecified diabetic retinopathy without macular edema; I27.20 Pulmonary hypertension, unspecified; E78.5 Hyperlipidemia, unspecified; K21.9 Gastro-esophageal reflux disease without esophagitis; E66.01 Morbid (severe) obesity due to excess calories; Z68.34 Body mass index [BMI] 34.0-34.9, adult; M81.0 Age-related osteoporosis without current pathological fracture; Z98.42 Cataract extraction status, left eye; Z86.73 Personal history of transient ischemic attack (TIA), and cerebral infarction without residual deficits; Z98.41 Cataract extraction status, right eye; Z90.710 Acquired absence of both cervix and uterus; Z90.722 Acquired absence of ovaries, bilateral; Z90.79 Acquired absence of other genital organ(s); Z79.01 Long term (current) use of anticoagulants; Z79.4 Long term (current) use of insulin
CPT/HCPCS: 99283; A9270

== ENCOUNTER 2023-02-27 09:44 | Emergency (ER) | payer MEDICARE, MEDICAID, SELFPAY ==
--- NOTE | ~2023-02-27 | CT_ITS ---
EXAMINATION: CT lumbar spine wo con DATE: 02/27/2023 12:43 INDICATION: Low back pain. TECHNIQUE: Computed tomography (CT) of the lumbar spine was performed without intravenous contrast. A utomated exposure control and iterative reconstruction technique were employed. The dose-length produ ct was 1144.12 mGy-cm. COMPARISON: None FINDINGS: There is 15 degrees dextroscoliosis of lumbar spine. There is severely decreased disc heigh t from L1-L2 through L5-S1 with vacuum disc phenomenon and endplate remodeling. There are Schmorl's n odes at multiple levels. The following disc levels are specifically discussed: L1-L2: The disc is bulging There is severe right and moderate left facet joint osteoarthritis. There is mild bilateral neural foraminal stenosis. There is mild central canal stenosis. L2-L3: The disc is bulging. There is moderate right and severe left facet joint osteoarthritis. There is mild bilateral neural foraminal stenosis. There is mild central canal stenosis. L3-L4: The disc is bulging. There is severe bilateral facet joint osteoarthritis. There is mild bilat eral neural foraminal stenosis. There is mild central canal stenosis. L4-L5: The disc is bulging. There is severe bilateral facet joint osteoarthritis. There is moderate b ilateral neural foraminal stenosis. There is moderate central canal stenosis. L5-S1: The disc is bulging. There is severe bilateral facet joint osteoarthritis. There is moderate b ilateral neural foraminal stenosis. There is mild central canal stenosis. IMPRESSION: 1. Severe lumbar spondylosis. Reviewed, dictated and finalized at location A. D SWALLOWER
[2023-02-27 09:47] VITALS: BP 181/91; PULSE 92; RESP 20; TEMP 36.4; O2SAT 99
[2023-02-27 10:34] LABS: Basophils Percent Auto 0.2 % (0.2-1.2); Eosinophils Percent Auto 0.2 % (0-4.4); Hematocrit 35.3 % (37.0-47.0); Hemoglobin 11.4 g/dL (12.0-15.0); Immature Granulocyte Absolute 0.13 K/mm3 (0.00-0.031); Lymphocytes Absolute Auto 0.92 K/mm3 (0.9-3.2); Lymphocytes Percent Auto 7.3 % (18.3-44.2); Mean Corpuscular HGB Conc 32.3 g/dl (32-36); Mean Corpuscular Hemoglobin 32.9 pg (26-34); Mean Platelet Volume 12.3 fl (7.4-10.4); Monocytes Absolute Auto 0.6 K/mm3 (0.1-0.6); Monocytes Percent Auto 4.5 % (2.6-8.5); Neutrophils Absolute Auto 10.9 K/mm3 (1.3-6.7); Neutrophils Percent Auto 86.8 % (45.5-73.1); Platelet Count Result 185 k/mm3 (150-375); Red Blood Count 3.46 M/mm3 (4.2-5.4); Red Cell Distribution Width 14.6 % (11.5-14.5); White Blood Count 12.6 K/mm3 (4.5-10.0)
[2023-02-27 10:50] LABS: Alanine Aminotransferase 31 U/L (6-35); Albumin Level 4.2 g/dL (3.5-5.1); Alkaline Phosphatase 232 U/L (38-126); Anion Gap 17 mmol/L (8-16); Aspartate Amino Transferase 23 U/L (14-36); Bilirubin,Total 1.1 mg/dL (0.2-1.3); Blood Urea Nitrogen 101 mg/dL (7-17); Calcium 7.9 mg/dL (8.4-10.2); Carbon Dioxide 23 mmol/L (22-30); Chloride 95 mmol/L (98-107); Estimated CRCL calculation 6 ml/min; Estimated Glomerular Filt Rate 5; Glucose 224 mg/dL (65-110); Lipase 263 U/L (23-300); Potassium 5.2 mmol/L (3.4-5.0); Sodium 135 mmol/L (137-145)
--- NOTE | 2023-02-27 12:21 | ED.BACK ---
HPI - Back Pain/Injury General Chief Complaint: Abdominal Pain Stated Complaint: abd pain/unable to complete dialysis treatment Time Seen by Provider: 02/27/23 12:01 History of Present Illness HPI Narrative: patient is a 72-year-old female with history of ESRD on dialysis Sunday, hypertension, diabetes presenting with back pain. Patient states that she had pain shots in her lower back approximately 5 days ago at [facility]. She was told that it was a nerve numbing medication. States that since that time she has had shooting pain in her lower back that goes down her legs and sometimes into her stomach. States that she has been feeling generally very weak with decreased appetite. She was unable to make it to dialysis on Sunday due to her generalized weakness. States that he she did not want to go today as she continues to feel unwell but she was able to get there he. States that she only lasted about 10 minutes before wanting to go to the hospital. States that she spoke with the doctors who did the injections and they have her scheduled for tomorrow for evaluation. States that it feels hard to lift up her legs. No numbness, bowel incontinence. She does not make urine. No fevers or chills. No chest pain, shortness of breath, cough. Related Data Home Medications Medication Instructions Recorded Confirmed bupropion HCl 150 mg tablet,12 hr 50 mg PO DAILY 05/30/19 09/13/22 sustained-release (Wellbutrin SR) amlodipine 10 mg tablet 10 mg PO DAILY 09/07/20 09/13/22 atorvastatin 40 mg tablet 20 mg PO HS 09/07/20 09/13/22 allopurinol 100 mg tablet 100 mg PO DAILY 10/21/20 09/13/22 carvedilol 25 mg tablet 25 mg PO DAILY 10/21/20 09/13/22 blood-glucose meter,continuous 10/27/22 (Dexcom G6 Doughnut Glazier) blood-glucose sensor (Dexcom G6 10/27/22 Sensor device) insulin degludec 100 unit/mL (3 5 unit subcut DAILY 10/27/22 mL) subcutaneous pen (Tresiba FlexTouch U-100 insulin) Allergies Allergy/AdvReac Type Severity Reaction Status Date / Time adhesive tape AdvReac Itching Verified 12/01/22 14:38 Review of Systems Review of Systems: All systems reviewed & are unremarkable except as noted in HPI and below PMFSH Past Medical History Medical History Anxiety and depression Arthritis Benign thyroid cyst Evaluated by ultrasound a couple of years ago per patient report. Cerebrovascular accident Due to embolic event following a shoulder fracture 2016 with chronic mild left-sided weakness. Chronic anemia Chronic venous stasis dermatitis of both lower extremities Contusion of ankle, left Diabetic gastroparesis Diabetic neuropathy Diabetic retinopathy of both eyes End-stage renal disease on hemodialysis Previously on peritoneal dialysis. Gastroesophageal reflux disease Gout Grade II diastolic dysfunction Noted on echo on 07/04/2019. EF 55-60%. 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 Moderate pulmonary hypertension Noted on echo on 07/04/2019 with estimated pulmonary arterial systolic pressure on 53 mmHg. Morbid obesity Osteomyelitis of right foot Osteoporosis Retinal detachment Right knee pain Shingles Splenic infarct (07/07/19) Venous stasis dermatitis of right lower extremity Surgical History Surgical History History of bilateral cataract extraction (2009) History of total hysterectomy with bilateral salpingo-oophorectomy (BSO) For benign ovarian mass. Proliferative diabetic retinopathy with history of surgery Status post excisional debridement (~10/2020) Debridement of diabetic foot ulcer and osteomyelitis of right foot. Status post glaucoma surgery Surgically constructed arteriovenous fistula (2016) Family History Family History (
[2023-02-27 13:39] VITALS: PULSE 96; RESP 20; O2SAT 95
[2023-02-27] MEDS: HYDROcodone/acetaminophen (*CRX) 5-325 MG TABLET 1 TAB PO (13:42)
--- NOTE | 2023-02-27 14:14 | ECG_ITS ---
Measurements Intervals [place] Rate: 96 P: 57 SD: 178 QRS: 5 QRSD: 154 T: 123 QT: 428 QTc: 541 Interpretive Statements SINUS RHYTHM LEFT BUNDLE BRANCH BLOCK [120+ ms QRS DURATION, 80+ ms Q/S IN V1/V2, 85+ ms R IN I/aVL/V5/V6] ABNORMAL ECG COMPARED TO ECG 07/29/2021 01:02:58 NO SIGNIFICANT CHANGES Electronically Signed On 02-28-2023 10:31:43 WELFARE ADVISER by Rusty Friend M.D.
[2023-02-27 14:26] VITALS: BP 180/99; PULSE 95; RESP 20; O2SAT 96
[2023-02-27 16:29] VITALS: BP 177/89; PULSE 93; RESP 20; O2SAT 97
== END 2023-02-27 19:19 | disposition home or self-care (01) ==
PROVIDERS: Emergency Medicine; Emergency Provider Emergency Medicine; PCP Internal Medicine
DX: M54.50 Low back pain, unspecified (principal); I12.0 Hypertensive chronic kidney disease with stage 5 chronic kidney disease or end stage renal disease; E11.22 Type 2 diabetes mellitus with diabetic chronic kidney disease; N18.6 End stage renal disease; Z99.2 Dependence on renal dialysis; Z79.4 Long term (current) use of insulin; F41.9 Anxiety disorder, unspecified; F32.A Depression, unspecified; M19.90 Unspecified osteoarthritis, unspecified site; D64.9 Anemia, unspecified; E78.5 Hyperlipidemia, unspecified; I27.20 Pulmonary hypertension, unspecified; M47.816 Spondylosis without myelopathy or radiculopathy, lumbar region
CPT/HCPCS: 36415; 72131; 80053; 83690; 85025; 93005; 99284; A9270

== ENCOUNTER 2023-03-27 14:49 | Inpatient (IN) | payer MEDICARE, MEDICAID, SELFPAY ==
[2023-03-27] VITALS (15 sets, daily range): BP systolic 107–180; BP diastolic 59–83; PULSE 56–77; RESP 0–24; TEMP 35.9–36.4; O2SAT 92–100
--- NOTE | ~2023-03-27 | XR_ITS ---
EXAMINATION: XR OR cystogram 1-2V DATE: 03/29/2023 16:14 INDICATION: Cystogram TECHNIQUE: Single fluoroscopic image of the pelvis were obtained during procedure performed by Dr. Ana esquivel. Radiologist was not present for the imaging or procedure. The amount of fluoroscopy time used during this procedure was 0.3 minutes. Total DAP was 0.398 mGym^2 COMPARISON: None. FINDINGS: Image demonstrates contrast opacification of the bladder which demonstrate a normal smooth contour on the provided projection. Vesicoureteral reflux with contrast extending proximally into the normal ca liber right ureter. IMPRESSION: 1. Normal bladder with right-sided vesicoureteral reflux. See procedure note for further detail. Reviewed, dictated and finalized at location A. CISE RIDER IMPRESSION: 1. Normal bladder with right-sided vesicoureteral reflux. See procedure note fo r further detail.
--- NOTE | ~2023-03-27 | XR_ITS ---
EXAMINATION: XR enema water soluble DATE: 03/30/2023 11:08 INDICATION: Possible colovesical fistula TECHNIQUE: A order runner radiograph was obtained. A catheter was inserted into the patient's rectum. Water- soluble contrast was infused by gravity. Fluoroscopic spot images and conventional radiographs were o btained. Fluoroscopy exposure time was 0.9 minutes. Total DAP was 90.313 Gycm^2 the total of 36 fluo roscopic images and 11 overhead radiographs were obtained. COMPARISON: None. FINDINGS: Patient was unable to maintain the enema bulb within the rectum spleen without and with contrast was extends and contrast was extended only to the level of the splenic flexure the colon but sufficient t o assess for of a colovesical fistula. There are several diverticula along the descending and sigmoid colon. No evident colovesical fistula or other extraluminal contrast extension. There is some residu al contrast in the right renal pelvis likely related to the retrograde cystogram performed one day pr ior. Scattered vascular calcification is in the abdomen and pelvis and several phleboliths in the pel vis. Mild lumbar dextrocurvature with severe spondylosis. IMPRESSION: 1. Mild diverticulosis with no evident colovesical fistula or other extraluminal contrast extension. 2. Residual contrast in the right renal collecting system likely from retrograde cystogram performed one day prior and suggesting poor renal function. Reviewed, dictated and finalized at location A. SCHOOL MUSIC INSTRUCTOR IMPRESSION: 1. Mild diverticulosis with no evident colovesical fistula or other extralumina l contrast extension. 2. Residual contrast in the right renal collecting system likely from retrograd e cystogram performed one day prior and suggesting poor renal function.
--- NOTE | ~2023-03-27 | XR_ITS ---
Portable chest x-ray Comparison: 07/29/2021 Clinical History: Shortness of breath Findings: Lungs are clear, without focal consolidation or pleural effusion. Cardiomediastinal silho uette is stable. Bones and soft tissues are unremarkable. Impression: Clear lungs. Stable cardiomegaly. Reviewed, dictated and finalized at location . LE PACKER Impression: Clear lungs. Stable cardiomegaly.
--- NOTE | ~2023-03-27 | CT_ITS ---
EXAMINATION: CT abdomen pelvis wo con DATE: 03/27/2023 16:24 INDICATION: Lower abdominal and pelvic pain. Bladder spasms. TECHNIQUE: Computed tomography (CT) of the abdomen and pelvis was performed without intravenous contr ast. Automated exposure control and iterative reconstruction technique were employed. Exam dose: 143 7.36 mGy-cm total exam DLP. COMPARISON: July 05, 2019 CT abdomen pelvis FINDINGS: There are scattered discoid densities consistent with discoid atelectasis or scarring at th e lingula and left lower lobe. Lung bases are clear of consolidation. Cardiomegaly. Coronary artery atherosclerosis. No pericardial effusion. No pleural effusion. Small sliding hiatal hernia. There is fluid in the distal esophagus. There is mild gallbladder wall thickening, measuring approximately 3.5 mm thickness and evidence of g allstones. No pericholecystic fluid or fat stranding. The liver is unremarkable. Severe splenic artery calcification and some splenic calcifications. Prominent celiac and hepatic artery calcification, superior mesenteric and inferior mesenteric artery and bilateral prominent renal artery calcifications. Is calcification but normal caliber of the abdo scott aorta and iliac arteries and femoral arteries. The severity of the arterial calcifications sugg est diabetes. No pancreatic mass lesion or pancreatic duct or bile duct dilatation is detected. Normal morphology of the adrenal glands. No renal mass lesion or urinary tract calculus or hydroureteronephrosis is evident. There is fluid and fecal-looking content within the bladder lumen, moderate bladder wall thickening. Consider fistula between urinary bladder bowel. Status post hysterectomy. Diverticulosis of the colon; no CT evidence of diverticulitis. No bowel obstruction, bowel wall thick ening, pneumatosis or intraperitoneal free air. Prominent fat-containing umbilical hernia. There is fat stranding of the lower anterior abdominal wall which may be due to edema or inflammation . Prominent degenerative disease throughout the lumbar spine. Is irregularity and particularly at the v ertebral endplates L1-2, L2-3, L3-4, likely due to Schmorl's nodes. Discitis is considered less likel y. No suspicious osteolytic or osteoblastic lesions. IMPRESSION: Cholelithiasis, gallbladder wall thickening Small sliding hiatal hernia Diverticulosis of the colon; no evidence of diverticulitis Questionable fecal content within the urinary bladder and mild urinary bladder wall thickening; canno t exclude fistula between bladder and bowel Reviewed, dictated and finalized at Location A. Reviewed, dictated and finalized at location L. ING MACHINE TENDER IMPRESSION: Cholelithiasis, gallbladder wall thickening Small sliding hiatal hernia Diverticulosis of the colon; no evidence of diverticulitis Questionable fecal content within the urinary bladder and mild urinary bladder wall thickening; cannot exclude fistula between bladder and bowel
--- NOTE | 2023-03-27 15:56 | ED.FEMALEGU ---
HPI - Female Genitourinary General Chief complaint: Urogenital-Female Stated complaint: Bladder pain NV Time Seen by Provider: 03/27/23 15:48 Source: patient and EMS Mode of arrival: EMS Limitations: no limitations History of Present Illness HPI Narrative: 72 years old white female, scheduled for dialysis today could not do it because been having constant steady bladder spasm a with frequent nausea and vomiting on average 15 times a day. She denies any fever. Patient reported having similar spasms like this years ago and was treated with some medications does not know the name of it Related Data Home Medications Medication Instructions Recorded Confirmed bupropion HCl 150 mg tablet,12 hr 50 mg PO DAILY 05/30/19 09/13/22 sustained-release (Wellbutrin SR) amlodipine 10 mg tablet 10 mg PO DAILY 09/07/20 09/13/22 atorvastatin 40 mg tablet 20 mg PO HS 09/07/20 09/13/22 allopurinol 100 mg tablet 100 mg PO DAILY 10/21/20 09/13/22 carvedilol 25 mg tablet 25 mg PO DAILY 10/21/20 09/13/22 blood-glucose meter,continuous 10/27/22 (Dexcom G6 Stained Glass Artist) blood-glucose sensor (Dexcom G6 10/27/22 Sensor device) insulin degludec 100 unit/mL (3 5 unit subcut DAILY 10/27/22 mL) subcutaneous pen (Tresiba FlexTouch U-100 insulin) Allergies Allergy/AdvReac Type Severity Reaction Status Date / Time adhesive tape AdvReac Itching Verified 12/01/22 14:38 Review of Systems Review of Systems: All systems reviewed & are unremarkable except as noted in HPI and below PMFSH Past Medical History Medical History Anxiety and depression Arthritis Benign thyroid cyst Evaluated by ultrasound a couple of years ago per patient report. Cerebrovascular accident Due to embolic event following a shoulder fracture 2016 with chronic mild left-sided weakness. Chronic anemia Chronic venous stasis dermatitis of both lower extremities Contusion of ankle, left Diabetic gastroparesis Diabetic neuropathy Diabetic retinopathy of both eyes End-stage renal disease on hemodialysis Previously on peritoneal dialysis. Gastroesophageal reflux disease Gout Grade II diastolic dysfunction Noted on echo on 07/04/2019. EF 55-60%. 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 Moderate pulmonary hypertension Noted on echo on 07/04/2019 with estimated pulmonary arterial systolic pressure on 53 mmHg. Morbid obesity Osteomyelitis of right foot Osteoporosis Retinal detachment Right knee pain Shingles Splenic infarct (07/07/19) Venous stasis dermatitis of right lower extremity Surgical History Surgical History History of bilateral cataract extraction (2009) History of total hysterectomy with bilateral salpingo-oophorectomy (BSO) For benign ovarian mass. Proliferative diabetic retinopathy with history of surgery Status post excisional debridement (~10/2020) Debridement of diabetic foot ulcer and osteomyelitis of right foot. Status post glaucoma surgery Surgically constructed arteriovenous fistula (2015) Family History Family History Sibling Family history of alcoholism Mother Metastatic colon cancer in female Father Cancer Of the neck due to chemical exposure Son Heroin overdose Her youngest son Motor vehicle collision Her 2nd youngest son Other Hypertension Social History Social History Social History: Surrogate decision maker: Satya Rodriguez, son. Code status: Full code. Smoking status: Never smoker Second hand tobacco smoke exposure: No Alcohol intake: never Substance use: never Substance use type: does not use Living arrangements: fdc Additional living a
[2023-03-27] MEDS: ONDANSETRON INJ 4 MG/2 ML VIAL IV PUSH ×2 (16:07→19:54)
[2023-03-27 16:09] LABS: Basophils Percent Auto 0.3 % (0.2-1.2); Eosinophils Percent Auto 0.4 % (0-4.4); Hematocrit 41.9 % (37.0-47.0); Immature Granulocyte Absolute 0.03 K/mm3 (0.00-0.031); Immature Granulocyte Percent A 0.4 % (0-0.5); Lymphocytes Absolute Auto 0.68 K/mm3 (0.9-3.2); Mean Corpuscular Hemoglobin 32.8 pg (26-34); Mean Corpuscular Volume 105.8 fl (80-100); Mean Platelet Volume 11.5 fl (7.4-10.4); Monocytes Absolute Auto 0.5 K/mm3 (0.1-0.6); Monocytes Percent Auto 6.8 % (2.6-8.5); Neutrophils Absolute Auto 5.6 K/mm3 (1.3-6.7); Neutrophils Percent Auto 82.1 % (45.5-73.1); Platelet Count Result 194 k/mm3 (150-375); Red Blood Count 3.96 M/mm3 (4.2-5.4); Red Cell Distribution Width 15.1 % (11.5-14.5); White Blood Count 6.8 K/mm3 (4.5-10.0)
[2023-03-27] MEDS: HYDROmorphone HCL INJ (*CRX) 1 MG/ML SYR 0.5 MG IV PUSH ×2 (16:10→19:54)
[2023-03-27 16:20] LABS: Alanine Aminotransferase 35 U/L (6-35); Albumin Level 4.2 g/dL (3.5-5.1); Alkaline Phosphatase 225 U/L (38-126); Anion Gap 15 mmol/L (8-16); Aspartate Amino Transferase 46 U/L (14-36); Bilirubin,Total 1.7 mg/dL (0.2-1.3); Blood Urea Nitrogen 52 mg/dL (7-17); Calcium 7.9 mg/dL (8.4-10.2); Carbon Dioxide 29 mmol/L (22-30); Chloride 92 mmol/L (98-107); Estimated CRCL calculation 6 ml/min; Estimated Glomerular Filt Rate 5; Glucose 151 mg/dL (65-110); Lipase 56 U/L (23-300); Potassium 4.2 mmol/L (3.4-5.0); Sodium 136 mmol/L (137-145)
[2023-03-27 16:28] LABS: INR 1.1; Partial Thromboplastin Time 33.6 SECONDS (22.3-36.8); Prothrombin Time 14.4 Seconds (11.1-14.7)
[2023-03-27 16:32] LABS: Ovalocytes 1+ (NORMAL); Platelet Estimate Adequate (Adequate); Schistocytes None Seen (NORMAL)
[2023-03-27] MEDS: MORPHINE SULFATE (*CRX) 4 MG/ML INJ IV PUSH (16:49)
[2023-03-27] MEDS: PIPERACILLIN/TAZ 2.25G/NS 50ML 2.25 GM/50 ML BAG IVPB (17:35)
[2023-03-27] MEDS: SODIUM CHLORIDE 0.9% IV 1,000 ML 125 ML IV CONT (20:01)
[2023-03-27 22:42] LABS: Glucose Point of Care 157 mg/dl (65-105)
[2023-03-28] VITALS (22 sets, daily range): BP systolic 132–171; BP diastolic 44–97; PULSE 64–77; RESP 14–18; TEMP 35.7–37.1; O2SAT 92–99
--- NOTE | 2023-03-28 00:17 | ADMGEN ---
This patient, Kelley Rodriguez, was admitted to 3 [facility] Surg Room 313-01. Patient/family oriented to hospital policies and general routines including ID bracelet, bed and alarms, visiting hours, pain management, procedures, bathroom and other care routines, personal items, smoking policy, room service/diet, and visiting hours. Information on how to activate the Rapid Response Team has been discussed. Patient/Family are encouraged to report perceived risks to care and to ask questions if they do not understand what they are told or what they should do.
[2023-03-28] MEDS: PIPERACILLIN/TAZ 2.25G/NS 50ML 2.25 GM/50 ML BAG IVPB ×3 (01:51→17:43)
--- NOTE | 2023-03-28 02:48 | PM.IMHP ---
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 She has not been able to make urine for quite some time due to her end-stage renal disease. Over the last couple of days the bladder spasms have become constant and unrelenting. The pain is severe. Her nausea vomiting began 3 days ago and became worse with worsening of the pain. She has had essentially no oral intake for the last 3 days. Despite night eating her glucoses have been higher than usual. She has not had a bowel movement in 4 days. She denies any drainage or output from her bladder or any leakage of fecal contents despite CTA of the abdomen and pelvis performed in the ER demonstrating questionable fecal content within the urinary bladder and mild urinary bladder wall thickening with possibility of colovesicular fistula. She denies any fevers or chills. She has not been having any shortness of breath or chest pain. Her only other complaint at this time is a headache which developed after she was admitted the hospital. She reports that any time she does not have neck support she will developed a headache that radiates up the back of head and extend frontal. She reports that the pain is the better now that the nursing staff as provided a towel roll for support. But pain is still moderate in intensity. She is requesting helping for pain. Review of Systems Review of Systems: 12 systems were reviewed with pertinent positives and negatives per HPI. Except as documented in the HPI, all other systems were reviewed and are negative. [facility] Past Medical History Medical History (Updated 03/28/23 @ 07:37 by Hellen Julien DO) Anxiety and depression Arthritis Benign thyroid cyst Evaluated by ultrasound a couple of years ago per patient report. Cerebrovascular accident Due to embolic event following a shoulder fracture 2016 with chronic mild left-sided weakness. Chronic venous stasis dermatitis of both lower extremities Contusion of ankle, left Diabetic gastroparesis Diabetic neuropathy Diabetic retinopathy of both eyes End-stage renal disease on hemodialysis Previously on peritoneal dialysis. Gastroesophageal reflux disease Gout Grade II diastolic dysfunction Noted on echo on 07/04/2019. EF 55-60%. Hyperlipidemia Hypertension Infarction of liver (07/07/19) Insulin dependent type 2 diabetes mellitus A1c was 8.9% on 09/08/2020. 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 Morbid obesity Osteomyelitis of right foot Osteoporosis Peripheral arterial disease (Unknown) Retinal detachment Shingles Splenic infarct (07/07/19) Venous stasis dermatitis of both lower extremities Surgical History Surgical History (Updated 03/28/23 @ 07:13 by Hellen Julien DO) History of bilateral cataract extraction (2009) History of total hysterectomy with bilateral salpingo-oophorectomy (BSO) For benign ovarian mass. Proliferative diabetic retinopathy with history of surgery Status post below knee amputation of right lower extremity (12/2020) Status post excisional debridement (~10/2020) Debridement of diabetic foot ulcer and osteomyelitis of right foot. Status post glaucoma surgery Surgically constructed arteriovenous fistula (2015) Family History Family History Sibling Family history of alcoholism Mother Metastatic colon cancer in female Father Cancer Of the neck due to chemical exposure Son Heroin overdose Her y
[2023-03-28] MEDS: HYDROmorphone HCL INJ (*CRX) 1 MG/ML SYR 0.5 MG IV PUSH (03:53)
[2023-03-28] MEDS: diazePAM INJ (*CRX) 10 MG/2 ML SYRINGE 2.5 MG IV PUSH (05:51)
[2023-03-28 06:48] LABS: Basophils Percent Auto 0.5 % (0.2-1.2); Eosinophils Percent Auto 0.3 % (0-4.4); Hematocrit 42.7 % (37.0-47.0); Hemoglobin 12.8 g/dL (12.0-15.0); Immature Granulocyte Absolute 0.03 K/mm3 (0.00-0.031); Immature Granulocyte Percent A 0.4 % (0-0.5); Lymphocytes Absolute Auto 0.75 K/mm3 (0.9-3.2); Lymphocytes Percent Auto 9.6 % (18.3-44.2); Mean Corpuscular Hemoglobin 32.8 pg (26-34); Mean Corpuscular Volume 109.5 fl (80-100); Mean Platelet Volume 11.9 fl (7.4-10.4); Monocytes Absolute Auto 0.5 K/mm3 (0.1-0.6); Monocytes Percent Auto 6.4 % (2.6-8.5); Neutrophils Absolute Auto 6.5 K/mm3 (1.3-6.7); Neutrophils Percent Auto 82.8 % (45.5-73.1); Platelet Count Result 189 k/mm3 (150-375); Red Cell Distribution Width 15.5 % (11.5-14.5); White Blood Count 7.9 K/mm3 (4.5-10.0)
[2023-03-28 06:51] LABS: Alanine Aminotransferase 27 U/L (6-35); Albumin Level 3.6 g/dL (3.5-5.1); Alkaline Phosphatase 177 U/L (38-126); Anion Gap 19 mmol/L (8-16); Aspartate Amino Transferase 32 U/L (14-36); Bilirubin,Total 1.6 mg/dL (0.2-1.3); Blood Urea Nitrogen 56 mg/dL (7-17); Calcium 7.2 mg/dL (8.4-10.2); Carbon Dioxide 20 mmol/L (22-30); Chloride 96 mmol/L (98-107); Estimated CRCL calculation 6 ml/min; Estimated Glomerular Filt Rate 5; Glucose 139 mg/dL (65-110); Phosphorus 7.4 mg/dL (2.5-4.5); Potassium 4.7 mmol/L (3.4-5.0); Sodium 135 mmol/L (137-145)
[2023-03-28 07:32] LABS: Hepatitis B Surface Antigen Negative (Negative)
[2023-03-28 07:54] LABS: Hepatitis B Surface Anti Res Positive
--- NOTE | 2023-03-28 09:16 | PC.NURSE ---
Patient transported to dialysis per bed.
--- NOTE | 2023-03-28 11:35 | PM.CNGS ---
Assessment and Plan Assessment and plan (1) [place]-vesical fistula: Code(s): N32.1 - Vesicointestinal fistula Status: Acute Assessment and Plan: CT findings suggest possible colovesical fistula and diverticulosis. She has been having pneumaturia and bladder spasms intermittently for the past few years. She denies known history or previous treatment for diverticulitis, but this is a potential cause for her colovesical fistula. There is no evidence of acute diverticulitis on CT. We will consult Urology for their recommendations. Also, we will have nursing straight cath the patient for a UA with reflex, considering there is fluid in the bladder on CT. The patient has multiple co-morbidities that would increase her risks for surgery. Will continue to follow along with you. (2) Cholelithiasis: Code(s): K80.20 - Calculus of gallbladder without cholecystitis without obstruction Status: Acute Assessment and Plan: CT showed cholelithiasis with mild gallbladder wall thickening. LFTs are slightly elevated, but appears that this is close to baseline from previous labs in 2021. (3) Nausea and vomiting: Code(s): R11.2 - Nausea with vomiting, unspecified Status: Acute Assessment and Plan: Unclear etiology, continue antiemetics. If she continues to have issues with tolerating a diet or develops RUQ abdominal pain or tenderness, then we may need to consider an ultrasound or HIDA scan to further evaluate her gallbladder as a source for these symptoms. Currently, the CT shows no findings to suggest acute cholecystitis and she is not complaining of any upper abdominal pain. No RUQ tenderness on exam. Will continue to monitor. (4) End-stage renal disease on hemodialysis: Code(s): N18.6 - End stage renal disease; Z99.2 - Dependence on renal dialysis Status: Chronic (5) Insulin dependent type 2 diabetes mellitus: Code(s): E11.9 - Type 2 diabetes mellitus without complications; Z79.4 - superintendent container terminal (current) use of insulin Status: Chronic (6) Status post below knee amputation of right lower extremity: Onset Date: 12/2020 Code(s): Z89.511 - Acquired absence of right leg below knee Status: Acute (7) Anticoagulant long-term use: Code(s): Z79.01 - superintendent container terminal (current) use of anticoagulants Status: Acute Assessment and Plan: Eliquis on hold. Plan I have discussed the patient's case and plan of care with Dr. Gann. History of Present Illness Consult details Consult date: 03/28/23 Reason for consult: other (Possible colovesical fistula) Requesting physician: Rachel Maharaj MD Narrative: This is a 72-year-old woman with end-stage renal disease on hemodialysis, as history of CVA in 2016, diabetes mellitus with multiple complications and blindness due to diabetic retinopathy, a history of right BKA due to osteomyelitis, and multiple other medical problems, who presented to the ER yesterday with complaints of bladder spasms. She reports seeing urology in the past as she has had similar symptoms intermittently for the past 4 years. She reports feeling ?bladder pain? that feels like a spasm. This comes and goes. She had previously been on a muscle relaxant and antibiotics by Urology a few years ago with relief in her symptoms. Her symptoms returned but were much more mild, so she dealt with them at home. She is anuric, but has had urgency to void recently. Last week, she had 2 days of bladder spasms that were more severe. She felt symptoms improved after increasing her water intake. Then, yesterday, she reports having suprapubic pain and bladder spasms that were more severe than previous episodes. This prompted her to come into the ER for evaluation. She also endorses complaints of nausea and vomiting. She apparently has had issues with vomiting over the past few months. Initially, her nausea and vomiting would occur after eating meat. She reports this would be
[2023-03-28 12:07] LABS: Glucose Point of Care 83 mg/dl (65-105)
--- NOTE | 2023-03-28 12:32 | PM.CNNEP ---
Assessment and Plan Assessment and plan (1) End-stage renal disease (ESRD): Onset Date: Unknown Code(s): N18.6 - End stage renal disease Status: Chronic Assessment and Plan: HD today (since missed her treatment yesterday plan HD tomorrow and resume T/T/S dialysis schedule follow electrolytes, volume status, and clearance (2) [place]-vesical fistula: Code(s): N32.1 - Vesicointestinal fistula Status: Acute Assessment and Plan: as suggested by admission CT scan Urology and Surgery consulted supportive therapy (3) Hypertension: Code(s): I10 - Essential (primary) hypertension Status: Chronic Assessment and Plan: reasonably controlled elevated on admission due to pain(?) follow trend of hemodynamics (4) Anemia: Code(s): D64.9 - Anemia, unspecified Status: Chronic Assessment and Plan: H/H supratherapeutic for a dialysis patient hold Epogen for now follow trend of H/H (5) Insulin dependent type 2 diabetes mellitus: Code(s): E11.9 - Type 2 diabetes mellitus without complications; Z79.4 - nursing home (current) use of insulin Status: Chronic Assessment and Plan: follow accu-cheks glycemic control per hospitalists I will continue to follow the patient with you while she remains hospitalized make further recommendations as needed. Thank you for allowing me to participate in the care this patient. History of Present Illness Reason for Consult Consult date: 03/28/23 Reason for consult: end stage renal disease Chief Complaint Chief complaint: Abdominal Pain, Colon Fistula History of Present Illness Narrative: The patient is a 72-year-old female with a past medical history as outlined below who presented to [facility] Emergency room yesterday with severe bladder spasms. The patient reports that over the last couple of days if not longer, her bladder spasms, which is a chronic problem, had become constant and unrelenting with severe pain. This has been associated with some nausea and vomiting and difficulty with oral intake. She reports unable to take anything by mouth for last three or four days. Given her end-stage renal disease, I am unclear if she makes any significant urine output. However, she reports no new drainage or output from her bladder or any other significant change despite the increasing pain with her bladder spasms. Workup and evaluation in the emergency room demonstrated the patient to be hemodynamically stable but in mild to moderate stress rest secondary to pain. Routine blood work demonstrated labs consistent with her known history of end-stage renal disease without any critical electrolyte abnormalities. A CT scan of the abdomen pelvis was done which demonstrated questionable fecal content within her urinary bladder with the suggestion/possibility of a colovesicular fistula. Given her significant abdominal pains this/discomfort coupled with the imaging findings noted in the emergency room, the patient was admitted to the hospital for further evaluation and therapy. Renal consultation was requested due to her end-stage renal disease. The patient normally dialyzes on a Sunday, , Sunday dialysis schedule at [facility]. Due to her complaints with regard to her bladder spasms, she did not go to dialysis yesterday as she presented to the emergency room for further assessment. From a dialysis perspective, the patient seems to be doing reasonably well and is compliant with her dialysis treatments. Currently, at the time my visit, the patient is tolerating her dialysis treatment (seen on HD at 12:20PM) since she did not receive her regularly scheduled treatment yesterday.. Review of Systems Review of Systems: As per HPI. [facility] Past Medical History Medical History Anxiety and depression Arthritis Benig
--- NOTE | 2023-03-28 13:07 | WPDURCON ---
Assessment and Plan Assessment and plan (1) [place]-vesical fistula: Code(s): N32.1 - Vesicointestinal fistula Status: Acute Assessment and Plan: Patient is asymptomatic at this time. Given the CT findings of possible fecal material in the bladder will see if we can proceed with a cystoscopy on Sunday and also irrigate her bladder out at that time. Patient will be straight cath per order from general surgery. Further recommendations will be made pending her cystoscopy. Urology Consult Note HPI Date Seen: 03/28/23 Time Seen: 13:07 Requesting Physician: Amna Dickens MD Primary Care Provider: Shilo Estevez, Consult Narrative Reason for consult: Possible colovesical fistula Narrative: Kelley Rodriguez is a 72 year old female who was admitted for some nausea/vomiting with bladder spasms. She had been seeing our nurse practitioner Satya for several years. CT evaluation at this time reveals material in the bladder possibly consistent with colovesical fistula. At the time my evaluation she is resting comfortably. She does receive dialysis and denies any sort of discharge from the urethral area. She is feeling more comfortable today. She is being evaluated by General surgery for the possible fistula as well as some gallstones. Review of Systems Review of Systems: All systems reviewed & are unremarkable except as noted in HPI and below PMFSH Past Medical History Medical History Anxiety and depression Arthritis Benign thyroid cyst Evaluated by ultrasound a couple of years ago per patient report. Cerebrovascular accident Due to embolic event following a shoulder fracture 2016 with chronic mild left-sided weakness. Chronic venous stasis dermatitis of both lower extremities Contusion of ankle, left Diabetic gastroparesis Diabetic neuropathy Diabetic retinopathy of both eyes End-stage renal disease on hemodialysis Previously on peritoneal dialysis. Gastroesophageal reflux disease Gout Grade II diastolic dysfunction Noted on echo on 07/04/2019. EF 55-60%. Hyperlipidemia Hypertension Infarction of liver (07/07/19) Insulin dependent type 2 diabetes mellitus A1c was 8.9% on 09/08/2020. 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 Morbid obesity Osteomyelitis of right foot Osteoporosis Peripheral arterial disease (Unknown) Retinal detachment Shingles Splenic infarct (07/07/19) Venous stasis dermatitis of both lower extremities Surgical History Surgical History History of bilateral cataract extraction (2009) History of total hysterectomy with bilateral salpingo-oophorectomy (BSO) For benign ovarian mass. Proliferative diabetic retinopathy with history of surgery Status post below knee amputation of right lower extremity (12/2020) Status post excisional debridement (~10/2020) Debridement of diabetic foot ulcer and osteomyelitis of right foot. Status post glaucoma surgery Surgically constructed arteriovenous fistula (2015) Family History Family History Sibling Family history of alcoholism Mother Metastatic colon cancer in female Father Cancer Of the neck due to chemical exposure Son Heroin overdose Her youngest son Motor vehicle collision Her 2nd youngest son Other Hypertension Social History Social History Social History: Surrogate decision maker: Satya Rodriguez, son. Code status: Full code. Smoking status: Never smoker Second hand tobacco smoke exposure: No Alcohol intake: never Substance use: never Substance use type: does not use Do You Feel Safe in your Home?: Yes Lack o
[2023-03-28] MEDS: TOLNAFTATE 1% POWDER 45 GM BTL 1 APPLIC TOPICAL ×2 (13:15→20:40)
[2023-03-28] MEDS: PANTOPRAZOLE SODIUM IV 40 MG VIAL IV PUSH (13:17)
[2023-03-28] MEDS: carvediloL 25 MG TABLET PO ×2 (13:17→20:40)
--- NOTE | 2023-03-28 14:43 | PM.IMPN ---
Progress Note: A&P Assessment and Plan (1) [place]-vesical fistula: Code(s): N32.1 - Vesicointestinal fistula Status: Acute (2) Status post below knee amputation of right lower extremity: Onset Date: 12/2020 Code(s): Z89.511 - Acquired absence of right leg below knee Status: Acute (3) Abdominal pain: Code(s): R10.9 - Unspecified abdominal pain Status: Acute (4) Uncontrolled diabetes mellitus with ESRD (end-stage renal disease): Status: Acute Plan Colovesical fistula Bladder suspensions suspicious of colovesicular fistula surgical consult. Patient scheduled for possible surgical intervention on Sunday. Continue IV Zosyn Diabetes with multiple comorbid conditions HBA1c ( goal <7.0%) , Renal functions, Liver panel every 3 months Monitor vitamin B12 levels Optimize HEIDI-inhibitor and statin Routine glucose monitoring. Watch for Hypoglycemia. BMI goal < 25 End-stage renal disease And gentle hydration. Currently on dialysis Avoid nephrotoxic drugs. Monitor antihypertensive drugs Avoid NSAIDs. Routine CMP monitor GFR. Continue sliding scale Monitor electrolytes potassium levels. Dose antibiotics depending on creatinine clearance Routine follow-up with PCP and quitline counselor recommended Severe peripheral vascular disease Currently on Eliquis which is on hold due to surgery. DVT prophylaxis SCDs Subjective Date/time seen: 03/28/23 14:43 Interval history: Patient denies any complaints sitting up the bed say having a meal with some bedside no new complains no fever no chills no chest pain. History of end-stage renal disease currently on dialysis due to diabetes also history of blindness due to diabetes. Right lower extremity amputation secondary to osteomyelitis and multiple comorbid conditions Review of Systems Review of Systems: All systems reviewed & are unremarkable except as noted in HPI and below Exam Narrative: GENERAL: Well appearing, no acute distress. HEAD: Normocephalic, atraumatic. NECK: Supple. No adenopathy, no masses. RESPIRATORY: respirations nonlabored. , no rales, wheezing. CARDIOVASCULAR: Regular rate and rhythm without murmurs, . Peripheral pulses right lower extremity amputated due to osteomyelitis and poor pulses ABDOMINAL: Soft, nontender, nondistended, no hepatosplenomegaly. Normoactive BS. MUSCULOSKELETAL: no Epigastric and no hypochondrial tenderness SKIN: Warm, dry, NEURO: A&O X3. Moves all extremities Objective Data Vital Signs Vital Signs: Vital Signs - 24 hr 03/27/23 14:58 03/27/23 15:02 03/27/23 15:04 Temperature 36.4 C Pulse Rate 77 77 76 Respiratory Rate 13 16 20 Blood Pressure 180/83 H 180/83 H Pulse Oximetry 97 92 95 Oxygen Delivery Room Air Oxygen Flow Rate 03/27/23 15:05 03/27/23 16:28 03/27/23 16:30 Temperature Pulse Rate 76 Respiratory Rate 16 Blood Pressure Pulse Oximetry 97 98 92 Oxygen Delivery Oxygen Flow Rate 03/27/23 16:49 03/27/23 17:01 03/27/23 17:15 Temperature Pulse Rate 77 75 77 Respiratory Rate 16 15 18 Blood Pressure Pulse Oximetry 98 99 97 Oxygen Delivery Oxygen Flow Rate 03/27/23 17:32 03/27/23 17:46 03/27/23 18:13 Temperature Pulse Rate 74 77 74 Respiratory Rate 17 24 H 0 L Blood Pressure Pulse Oximetry 98 92 Oxygen Delivery Oxygen Flow Rate 03/27/23 18:15 03/27/23 18:16 03/27/23 20:00 Temperature Pulse Rate 62 67 67 Respiratory Rate 22 H 18 18 Blood Pressure 144/76 H Pulse Oximetry 98 98 Oxygen Delivery Nasal Cannula Oxygen Flow Rate 2 03/27/23 20:00 03/28/23 00:00 03/28/23 05:29 Temperature 35.9 C L 36.1 C L 35.7 C L Pulse Rate 56 L 72 68 Respiratory Rate 20 14 16 Blood Pressure 107/59 L 155/72 H 153/63 H Pulse Oximetry 100 99 97 Oxygen Delivery Oxygen Flow Rate 03/28/23 13:17 03/28/23 09:22 03/28/23 12:53 Temperature 36.7 C 36.6 C Pulse Rate 68 73 75 Respiratory Rate
[2023-03-28 15:31] LABS: Appearance Urine Turbid (Clear); Bacteria Urine 4+ /hpf; Bilirubin Urine 1+ (Negative); Blood Urine 3+ (Negative); Color Urine Dark Yellow (Yellow); Glucose Urine UA Negative (Negative); Ketones Urine Trace mg/dL (Negative); Leukocyte Esterase Ur 3+ LEU/UL (Negative); Need Manual Microscopic Reviewed; Nitrate Urine Negative (Negative); Non Pathogenic Casts 0-2; Protein Urine 4+ mg/dL (Negative); Specific Grav Ur 1.017 (1.001-1.035); Squamous Epithelial Cell Urine Many /hpf (Few); WBC Urine >100 /hpf; pH Urine 6.5 (5.0-9.0)
[2023-03-28 15:38] LABS: Add Urine Microscopic? YES
[2023-03-28 16:52] LABS: Glucose Point of Care 194 mg/dl (65-105)
[2023-03-28 21:14] LABS: Glucose Point of Care 335 mg/dl (65-105)
[2023-03-29] VITALS (31 sets, daily range): BP systolic 109–184; BP diastolic 32–89; PULSE 57–73; RESP 12–22; TEMP 36.1–37; O2SAT 86–100
[2023-03-29] MEDS: PIPERACILLIN/TAZ 2.25G/NS 50ML 2.25 GM/50 ML BAG IVPB ×3 (01:10→17:46)
--- NOTE | 2023-03-29 06:27 | WPDHPUPDATE1 ---
History and Physical Update Update Date/Time: 03/29/23 06:27 History and Physical has been reviewed, including an updated exam of the patient. There are NO changes in the patient's condition. Risks, benefits, and alternatives have been discussed and questions answered. Patient agrees to proceed with procedure.
[2023-03-29 08:03] LABS: Glucose Point of Care 153 mg/dl (65-105)
[2023-03-29] MEDS: TOLNAFTATE 1% POWDER 45 GM BTL 1 APPLIC TOPICAL ×2 (08:26→22:12)
[2023-03-29 09:29] LABS: Hematocrit 42.9 % (37.0-47.0); Hemoglobin 12.9 g/dL (12.0-15.0); Mean Corpuscular HGB Conc 30.1 g/dl (32-36); Mean Corpuscular Hemoglobin 32.5 pg (26-34); Mean Corpuscular Volume 108.1 fl (80-100); Mean Platelet Volume 11.6 fl (7.4-10.4); Platelet Count Result 171 k/mm3 (150-375); Red Blood Count 3.97 M/mm3 (4.2-5.4); Red Cell Distribution Width 15.6 % (11.5-14.5); White Blood Count 6.6 K/mm3 (4.5-10.0)
[2023-03-29 09:48] LABS: Alanine Aminotransferase 29 U/L (6-35); Albumin Level 3.7 g/dL (3.5-5.1); Alkaline Phosphatase 162 U/L (38-126); Anion Gap 11 mmol/L (8-16); Aspartate Amino Transferase 28 U/L (14-36); Bilirubin,Total 1.5 mg/dL (0.2-1.3); Blood Urea Nitrogen 30 mg/dL (7-17); Calcium 7.8 mg/dL (8.4-10.2); Carbon Dioxide 28 mmol/L (22-30); Chloride 99 mmol/L (98-107); Estimated CRCL calculation 9 ml/min; Estimated Glomerular Filt Rate 7; Glucose 154 mg/dL (65-110); Potassium 3.7 mmol/L (3.4-5.0); Sodium 138 mmol/L (137-145)
--- NOTE | 2023-03-29 12:27 | WPDHPUPDATE1 ---
History and Physical Update Update Date/Time: 03/29/23 12:27 History and Physical has been reviewed, including an updated exam of the patient. There are NO changes in the patient's condition. Risks, benefits, and alternatives have been discussed and questions answered. Patient agrees to proceed with procedure. Proceed with cystoscopy, possible cystogram
--- NOTE | 2023-03-29 12:30 | PM.PNNEP ---
Progress Note: A&P Assessment and Plan (1) End-stage renal disease (ESRD): Onset Date: Unknown Code(s): N18.6 - End stage renal disease Status: Chronic Assessment and Plan: HD today continue T/T/S dialysis schedule while hospitalized follow electrolytes, volume status, and clearance (2) [place]-vesical fistula: Code(s): N32.1 - Vesicointestinal fistula Status: Acute Assessment and Plan: as suggested by admission CT scf Urology and Surgery following cystoscopy planned later todday supportive therapy (3) Hypertension: Code(s): I10 - Essential (primary) hypertension Status: Chronic Assessment and Plan: reasonably controlled elevated on admission due to pain(?) follow trend of hemodynamics (4) Anemia: Code(s): D64.9 - Anemia, unspecified Status: Chronic Assessment and Plan: H/H supratherapeutic for a dialysis patient hold Epogen for now follow trend of H/H (5) Insulin dependent type 2 diabetes mellitus: Code(s): E11.9 - Type 2 diabetes mellitus without complications; Z79.4 - terminal operator (current) use of insulin Status: Chronic Assessment and Plan: follow accu-cheks glycemic control per hospitalists Will continue to follow. Subjective Date/time seen: 03/29/23 12:30 Interval history: Follow-up for end stage renal disease on hemodialysis. Tolerating dialysis treatment at the time of my visit (seen on HD at 12:20PM); tolerated dialysis treatment yesterday as well; noted plans for cystoscopy this afternoon by Urology; still with on/off pain in pelvis/bladder. Exam Narrative: General: WD/WN female in NAD Heart: normal S1 and S2; no rub Lungs: clear to auscultation Abdomen: soft, nontender, nondistended, positive bowel sounds Extremities: no cyanosis or clubbing; no edema Skin: warm and dry Objective Data Vital Signs Vital Signs: Vital Signs Temp Pulse Resp BP Pulse Ox O2 Del Method 03/29/23 10:03 63 157/47 H 03/29/23 09:45 68 184/80 H 03/29/23 09:26 68 165/62 H 03/29/23 09:16 97.5 F L 66 16 164/84 H 03/29/23 08:26 Room Air 03/29/23 08:00 97.8 F 61 18 125/47 L 98 03/29/23 05:23 97.6 F 57 L 18 124/50 L 97 03/29/23 04:00 97.6 F 57 L 18 118/45 L 94 03/29/23 00:00 97.3 F L 63 18 122/46 L 94 03/28/23 20:00 64 18 92 Room Air 03/28/23 21:54 97.6 F 64 18 132/54 L 92 03/28/23 20:00 97.3 F L 66 18 148/76 H 96 03/28/23 16:00 97.8 F 70 16 150/88 H 98 03/28/23 14:00 98.0 F 70 14 156/97 H 96 03/28/23 13:15 Room Air 03/28/23 12:53 97.8 F 75 16 159/75 H 98 03/28/23 13:17 68 Intake/Output Intake/Output: Intake & Output 03/26/23 03/27/23 03/28/23 03/29/23 23:59 23:59 23:59 23:59 Intake Total 50 1750 Output Total 3050 0 Balance 50 -1300 0 Meds/Results Medications: Active Medications Generic Name Dose Route Start Last Admin Trade Name Freq PRN Reason Stop Dose Admin Carvedilol 25 mg 03/28/23 09:00 03/28/23 20:40 Carvedilol 25 Mg Tablet PO 25 mg Q12HR MICHELL Administration Dextrose 12.5 gm 03/28/23 02:53 Dextrose 50% 25 Gm/50 Ml Syringe IV PUSH PRN PRN Hypoglycemia Protocol Glucagon 1 mg 03/28/23 02:53 Glucagon For Inj 1 Mg Vial IM PRN PRN Hypoglycemia Protocol Glucose 15 gm 03/28/23 02:53 Glucose Oral Gel 15 Gm Of Glucse In 37.5 Gm Tube PO PRN PRN Hypoglycemia Protocol Piperacillin Sod/Tazobactam Sod 2.25 gm in 50 mls @ 100 mls/hr 03/28/23 02:00 03/29/23 01:10 Zosyn 2.25 Gm/Ns 50 Ml IVPB 100 mls/hr Q8H MICHELL Administration Dextrose 1,000 mls @ 100 mls/hr 03/28/23 02:53 Dextrose 5% 1,000 Ml IVPB PRN PRN Hypoglycemia Protocol Albumin Human 50 mls @ 999 mls/hr 03/28/23 05:42 Albutein IVPB 04/27/23 05:41 Q10M PRN HYPOTENS
--- NOTE | 2023-03-29 13:14 | PC.NURSE ---
Patient returned from dialysis per bed.
[2023-03-29] MEDS: MORPHINE SULFATE (*CRX) 4 MG/ML INJ IV PUSH (13:18)
[2023-03-29] MEDS: PANTOPRAZOLE SODIUM IV 40 MG VIAL IV PUSH (13:30)
--- NOTE | 2023-03-29 14:00 | PC.NURSE ---
Patient to OR per bed.
--- NOTE | 2023-03-29 14:03 | PM.IMPN ---
Progress Note: A&P Assessment and Plan (1) [place]-vesical fistula: Code(s): N32.1 - Vesicointestinal fistula Status: Acute (2) Status post below knee amputation of right lower extremity: Onset Date: 12/2020 Code(s): Z89.511 - Acquired absence of right leg below knee Status: Acute (3) Abdominal pain: Code(s): R10.9 - Unspecified abdominal pain Status: Acute (4) Uncontrolled diabetes mellitus with ESRD (end-stage renal disease): Status: Acute Plan Colovesical fistula Patient scheduled for possible surgical intervention on Sunday. Continue IV Zosyn Diabetes with multiple comorbid conditions HBA1c ( goal <7.0%) , Renal functions, Liver panel every 3 months Routine glucose monitoring. Watch for Hypoglycemia. BMI goal < 25 End-stage renal disease And gentle hydration. Currently on dialysis Avoid nephrotoxic drugs. Creatinine 6.0 Monitor antihypertensive drugs Avoid NSAIDs. Routine CMP monitor GFR. Continue sliding scale Severe peripheral vascular disease Currently on Eliquis which is on hold due to surgery. DVT prophylaxis SCDs DVT prophylaxis. SCDs GI prophylaxis. Protonix All records reviewed Discussed plan of care with the nursing staff and with the patient in detail. Answered all questions and concerns from the patient. All labs have been reviewed. Code status updated dictation may have been done utilizing a voice recognition system. Attempts have been made to correct errors. However, there may be uncorrected grammatical, spelling, and recognition errors present. Subjective Date/time seen: 03/29/23 14:03 Interval history: Follow-up for end stage renal disease on hemodialysis. Tolerating dialysis treatment at the time of my visit (seen on HD at 12:20PM); tolerated dialysis treatment yesterday as well; Review of Systems Review of Systems: All systems reviewed & are unremarkable except as noted in HPI and below Exam Narrative: GENERAL: Well appearing, no acute distress. HEAD: Normocephalic, atraumatic. NECK: Supple. No adenopathy, no masses. RESPIRATORY: respirations nonlabored. , no rales, wheezing. CARDIOVASCULAR: Regular rate and rhythm without murmurs, . Peripheral pulses 2+ and equal bilaterally. ABDOMINAL: Soft, nontender, nondistended, no hepatosplenomegaly. Normoactive BS. MUSCULOSKELETAL: no Epigastric and no hypochondrial tenderness SKIN: Warm, dry, NEURO: A&O X3. Moves all extremities Objective Data Vital Signs Vital Signs: Vital Signs - 24 hr 03/28/23 16:00 03/28/23 20:00 03/28/23 21:54 Temperature 36.6 C 36.3 C L 36.4 C Pulse Rate 70 66 64 Respiratory Rate 16 18 18 Blood Pressure 150/88 H 148/76 H 132/54 L Pulse Oximetry 98 96 92 Oxygen Delivery 03/28/23 20:00 03/29/23 00:00 03/29/23 04:00 Temperature 36.3 C L 36.4 C Pulse Rate 64 63 57 L Respiratory Rate 18 18 18 Blood Pressure 122/46 L 118/45 L Pulse Oximetry 92 94 94 Oxygen Delivery Room Air 03/29/23 05:23 03/29/23 08:00 03/29/23 08:26 Temperature 36.4 C 36.6 C Pulse Rate 57 L 61 Respiratory Rate 18 18 Blood Pressure 124/50 L 125/47 L Pulse Oximetry 97 98 Oxygen Delivery Room Air 03/29/23 09:16 03/29/23 09:26 03/29/23 09:45 Temperature 36.4 C L Pulse Rate 66 68 68 Respiratory Rate 16 Blood Pressure 164/84 H 165/62 H 184/80 H Pulse Oximetry Oxygen Delivery 03/29/23 10:03 Temperature Pulse Rate 63 Respiratory Rate Blood Pressure 157/47 H Pulse Oximetry Oxygen Delivery Intake/Output Intake/Output: Intake & Output 03/26/23 03/27/23 03/28/23 03/29/23 23:59 23:59 23:59 23:59 Intake Total 50 1750 50 Output Total 3050 0 Balance 50 -1300 50 Meds/Results Medications: Active Medications Generic Name Dose Route Start Last Admin Trade Name Freq PRN Reason Stop Dose Admin Carvedilol 25 mg 03/28/23 09:00 03/28/23 20:40 Carvedilol 25 Mg Tablet PO 25 mg Q12HR [facility] Administ
--- NOTE | 2023-03-29 14:08 | PM.PNGS ---
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 Await results of cystoscopy today. Keep on clear liquids today. Will get Hypaque Enema tomorrow morning. (2) Cholelithiasis: Code(s): K80.20 - Calculus of gallbladder without cholecystitis without obstruction Status: Acute (3) Anticoagulant long-term use: Code(s): Z79.01 - long-term (current) use of anticoagulants Status: Acute (4) End-stage renal disease on hemodialysis: Code(s): N18.6 - End stage renal disease; Z99.2 - Dependence on renal dialysis Status: Chronic Subjective Subjective Date/Time Seen: 03/29/23 14:08 Interval history: Pain, nausea, and vomiting improved. Tolerated clear liquids yesterday. Awaiting cystoscopy today. Exam GI: Inspection: non-distended and visible herniation GI Palp: Yes Soft to palpation, No Tenderness to palpation present (GI), No Guarding due to palpation present (GI), Yes Hernia present umbilical 3-10 cm (soft, reducible, nontender) and No Rebound tenderness present Objective Data Vital Signs Vital Signs: Vital Signs - 24 hr 03/28/23 16:00 03/28/23 20:00 03/28/23 21:54 Temperature 36.6 C 36.3 C L 36.4 C Pulse Rate 70 66 64 Respiratory Rate 16 18 18 Blood Pressure 150/88 H 148/76 H 132/54 L Pulse Oximetry 98 96 92 Oxygen Delivery 03/28/23 20:00 03/29/23 00:00 03/29/23 04:00 Temperature 36.3 C L 36.4 C Pulse Rate 64 63 57 L Respiratory Rate 18 18 18 Blood Pressure 122/46 L 118/45 L Pulse Oximetry 92 94 94 Oxygen Delivery Room Air 03/29/23 05:23 03/29/23 08:00 03/29/23 08:26 Temperature 36.4 C 36.6 C Pulse Rate 57 L 61 Respiratory Rate 18 18 Blood Pressure 124/50 L 125/47 L Pulse Oximetry 97 98 Oxygen Delivery Room Air 03/29/23 09:16 03/29/23 09:26 03/29/23 09:45 Temperature 36.4 C L Pulse Rate 66 68 68 Respiratory Rate 16 Blood Pressure 164/84 H 165/62 H 184/80 H Pulse Oximetry Oxygen Delivery 03/29/23 10:03 Temperature Pulse Rate 63 Respiratory Rate Blood Pressure 157/47 H Pulse Oximetry Oxygen Delivery Intake/Output Intake/Output: Intake & Output 03/26/23 03/27/23 03/28/23 03/29/23 23:59 23:59 23:59 23:59 Intake Total 50 1750 50 Output Total 3050 0 Balance 50 -1300 50 Meds/Results Medications: Active Medications Generic Name Dose Route Start Last Admin Trade Name Freq PRN Reason Stop Dose Admin Carvedilol 25 mg 03/28/23 09:00 03/28/23 20:40 Carvedilol 25 Mg Tablet PO 25 mg Q12HR MICHELL Administration Dextrose 12.5 gm 03/28/23 02:53 Dextrose 50% 25 Gm/50 Ml Syringe IV PUSH PRN PRN Hypoglycemia Protocol Glucagon 1 mg 03/28/23 02:53 Glucagon For Inj 1 Mg Vial IM PRN PRN Hypoglycemia Protocol Glucose 15 gm 03/28/23 02:53 Glucose Oral Gel 15 Gm Of Glucse In 37.5 Gm Tube PO PRN PRN Hypoglycemia Protocol Piperacillin Sod/Tazobactam Sod 2.25 gm in 50 mls @ 100 mls/hr 03/28/23 02:00 03/29/23 13:19 Zosyn 2.25 Gm/Ns 50 Ml IVPB 100 mls/hr Q8H MICHELL Administration Dextrose 1,000 mls @ 100 mls/hr 03/28/23 02:53 Dextrose 5% 1,000 Ml IVPB PRN PRN Hypoglycemia Protocol Albumin Human 50 mls @ 999 mls/hr 03/28/23 05:42 Albutein IVPB 04/27/23 05:41 Q10M PRN HYPOTENSION Insulin Aspart 3 - 6 units 03/28/23 17:00 03/29/23 13:30 Insulin Aspart (*Bkc) 100 Units/Ml SUB-Q Not Given TIDWM MICHELL Protocol Morphine Sulfate 4 mg 03/28/23 05:36 03/29/23 13:18 Morphine Sulfate (*Crx) 4 Mg/Ml Inj IV PUSH 4 mg Q3H PRN Administration Pain Rated 7-10 Ondansetron HCl 4 mg 03/27/23 18:05 03/27/23 19:54 Ondansetron Inj 4 Mg/2 Ml Vial IV PUSH 4 mg Q4H PRN Administration Nausea Pantoprazole Sodium 40 mg 03/28/23 09:00 03/29/23 13:30 Pa
[2023-03-29 14:42] LABS: Glucose Point of Care 101 mg/dl (65-105)
[2023-03-29] MEDS: SODIUM CHLORIDE 0.9% IV 500 ML 30 ML IV CONT (15:14)
--- NOTE | 2023-03-29 15:46 | WPDANESEPPF ---
Anes - Initial Pre Proc Eval Procedure: Operation Date: 03/29/23 14:30 Proposed Procedures p Cystoscopy, Possible Cystogram - Dimitry Werner MD Date/Time: 03/29/23 15:46 Surgeon: Amna Dickens MD Pre Op Diagnosis: Abdominal Pain, Colon Fistula Patient Data Age: 72 Gender: F Height: 1.57 m Weight: 101.3 kg Last Vital Signs Temp 36.5 C 03/29/23 14:15 Pulse 67 03/29/23 14:15 Resp 16 03/29/23 14:15 BP 115/48 L 03/29/23 14:15 Pulse Ox 100 03/29/23 14:15 O2 Del Method Room Air 03/29/23 14:15 O2 Flow Rate 2 03/27/23 20:00 Allergies Allergy/AdvReac Type Severity Reaction Status Date / Time adhesive tape AdvReac Itching Verified 03/29/23 14:55 Home Medications Medication Instructions Recorded Confirmed Type bupropion HCl 150 mg tablet,12 hr 50 mg PO DAILY 05/30/19 03/27/23 History sustained-release (Wellbutrin SR) apixaban 2.5 mg tablet (Eliquis) 2.5 mg PO BID 30 days #60 tabs 07/10/19 03/27/23 Rx atorvastatin 40 mg tablet 20 mg PO DAILY 09/07/20 03/27/23 History allopurinol 100 mg tablet 100 mg PO DAILY 10/21/20 03/27/23 History carvedilol 25 mg tablet 25 mg PO BID 10/21/20 03/27/23 History docusate sodium 100 mg capsule 100 mg PO BID PRN constipation #60 01/12/21 03/27/23 Rx caps blood-glucose meter,continuous 10/27/22 03/27/23 History (Dexcom G6 [employer]) blood-glucose sensor (Dexcom G6 10/27/22 03/27/23 History Sensor device) calcium acetate(phosphat bind) 667 667 mg PO TIDWMEAL 03/27/23 03/27/23 History mg capsule insulin degludec 200 unit/mL (3 10 unit subcut HS 03/27/23 03/27/23 History mL) subcutaneous pen (Tresiba FlexTouch U-200 insulin) insulin lispro 100 unit/mL 16 unit subcut TIDWMEAL 03/27/23 03/27/23 History subcutaneous pen (Humalog KwikPen (U-100) Insulin) nystatin 100,000 unit/gram topical 1 applic topical BID 03/27/23 03/27/23 History powder pantoprazole 40 mg tablet,delayed 40 mg PO DAILY 03/27/23 03/27/23 History release Laboratory Tests 03/28/23 03/28/23 03/29/23 16:47 20:28 07:47 WBC RBC Hgb Hct MCV MCH MCHC RDW Plt Count MPV Sodium Potassium Chloride Carbon Dioxide Anion Gap BUN Creatinine Estim Creat Clear Calc Estimated GFR Glucose POC Capillary Glucose 194 H mg/dl 335 H mg/dl 153 H mg/dl (65-105) (65-105) (65-105) Calcium Total Bilirubin AST ALT Alkaline Phosphatase Total Protein Albumin 03/29/23 03/29/23 09:07 14:36 WBC 6.6 K/mm3 (4.5-10.0) RBC 3.97 L M/mm3 (4.2-5.4) Hgb 12.9 g/dL (12.0-15.0) Hct 42.9 % (37.0-47.0) MCV 108.1 H fl (80-100) MCH 32.5 pg (26-34) MCHC 30.1 L g/dl (32-36) RDW 15.6 H % (11.5-14.5) Plt Count 171 k/mm3 (150-375) MPV 11.6 H fl (7.4-10.4) Sodium 138 mmol/L (137-145) Potassium 3.7 mmol/L (3.4-5.0) Chloride 99 mmol/L (98-107) Carbon Dioxide 28 mmol/L (22-30) Anion Gap 11 mmol/L (8-16) BUN 30 H D mg/dL (7-17) Creatinine 6.00 H mg/dL (0.7-1.0) Estim Creat Clear Calc 9 ml/min Estimated GFR 7 L (59 - ) Glucose 154 H mg/dL (65-110) POC Capillary Glucose 101 mg/dl (65-105) Calcium 7.8 L mg/dL (8.4-10.2) Total Bilirubin 1.5 H mg/dL (0.2-1.3) AST 28 U/L (14-36) ALT 29 U/L (6-35) Alkaline Phosphatase 162 H U/L (38-126) Total Protein 7.0 g/dL (6.3-8.2) Albumin 3.7 g/dL (3.5-5.1) Patient hx anesthesia problems: none Family hx anesthesia problems: none Results Review: All p
--- NOTE | 2023-03-29 16:11 | W.PM.PROC2 ---
Procedure Note - Detailed Date of Procedure 03/29/23 Pre-op Diagnosis Abdominal Pain, recurrent UTI Post-op Diagnosis Same Procedure Performed Cystoscopy, cystogram Surgeon Dimitry Werner MD Anesthesia General Description of Procedure Patient is taken the operative suite correctly identified. Once anesthesia was obtained she was placed in the dorsal lithotomy position prepped draped usual sterile fashion. Twenty-two [place] scope inserted the bladder. The urine was somewhat cloudy and thick in nature. I irrigated the bladder copiously and then reinspected. There was no fecal material noted. It is a smaller capacity bladder. The right ureteral orifice is somewhat patent. There is some erythema noted throughout consistent with her infection. I do not see any evidence of fistula at this time. She does have a little bit of edema along the posterior wall. [address] was then placed inflated with 10 cc in the balloon. I filled the bladder with 200 cc of contrast. There was reflux into the right ureter. No evidence of extravasation or fistulous communication at this time. Bladder was drained. This was connected to CBI to clear out her bladder. She is taken recovery stable condition. Will keep the CBI overnight and stop in the morning. Will plan on Black removal and the next day or 2. Estimated Blood Loss 0 Urine Output 0 Drains Yes Packing No Pathology None sent Complications No immediate complications Condition Stable Disposition PACU
[2023-03-29] MEDS: LIDOCAINE HCL 2% GEL UROJET 10 ML PKG MUCOUS MEM (16:12)
[2023-03-29] MEDS: HYDROmorphone HCL INJ (*CRX) 1 MG/ML SYR 0.25 MG IV PUSH ×3 (16:40→17:07)
[2023-03-29 17:14] LABS: Glucose Point of Care 80 mg/dl (65-105)
[2023-03-29 20:48] LABS: Glucose Point of Care 198 mg/dl (65-105)
[2023-03-29] MEDS: carvediloL 25 MG TABLET PO (22:11)
[2023-03-30] VITALS (9 sets, daily range): BP systolic 104–125; BP diastolic 45–66; PULSE 50–79; RESP 12–24; TEMP 36.1–36.6; O2SAT 94–100
[2023-03-30 06:55] LABS: Hemoglobin 12.6 g/dL (12.0-15.0); Mean Corpuscular HGB Conc 29.3 g/dl (32-36); Mean Corpuscular Hemoglobin 32.9 pg (26-34); Mean Corpuscular Volume 112.3 fl (80-100); Mean Platelet Volume 11.3 fl (7.4-10.4); Platelet Count Result 135 k/mm3 (150-375); Red Blood Count 3.83 M/mm3 (4.2-5.4); Red Cell Distribution Width 15.9 % (11.5-14.5); White Blood Count 7.7 K/mm3 (4.5-10.0)
[2023-03-30 07:13] LABS: Alanine Aminotransferase 25 U/L (6-35); Albumin Level 3.4 g/dL (3.5-5.1); Alkaline Phosphatase 152 U/L (38-126); Anion Gap 14 mmol/L (8-16); Aspartate Amino Transferase 29 U/L (14-36); Bilirubin,Total 1.7 mg/dL (0.2-1.3); Blood Urea Nitrogen 16 mg/dL (7-17); Calcium 7.9 mg/dL (8.4-10.2); Carbon Dioxide 23 mmol/L (22-30); Chloride 102 mmol/L (98-107); Estimated CRCL calculation 13 ml/min; Estimated Glomerular Filt Rate 11; Glucose 165 mg/dL (65-110); Potassium 3.9 mmol/L (3.4-5.0); Sodium 139 mmol/L (137-145)
[2023-03-30 08:05] LABS: Glucose Point of Care 201 mg/dl (65-105)
[2023-03-30] MEDS: carvediloL 25 MG TABLET PO (08:29)
[2023-03-30] MEDS: TOLNAFTATE 1% POWDER 45 GM BTL 1 APPLIC TOPICAL ×2 (08:29→21:06)
[2023-03-30] MEDS: PANTOPRAZOLE SODIUM IV 40 MG VIAL IV PUSH (08:34)
--- NOTE | 2023-03-30 08:39 | PC.NURSE ---
CBI paused at 08:40. 750 mL clear fluid emptied out of paz catheter bag.
[2023-03-30] MEDS: buPROPion HCL SR (12HR) 100 MG TABCR PO (09:38)
[2023-03-30] MEDS: allopurinoL 100 MG TABLET PO (09:38)
[2023-03-30] MEDS: ATORVASTATIN 20 MG TABLET PO (09:38)
[2023-03-30] MEDS: PIPERACILLIN/TAZ 2.25G/NS 50ML 2.25 GM/50 ML BAG IVPB ×2 (09:38→17:08)
--- NOTE | 2023-03-30 10:27 | PC.NURSE ---
Pt. down to xray via stretcher.
[2023-03-30 11:45] LABS: Glucose Point of Care 312 mg/dl (65-105)
[2023-03-30] MEDS: INSULIN ASPART (*BKC) 100 UNITS/ML SUB-Q (11:46)
[2023-03-30] MEDS: INSULIN ASPART (*BKC) 100 UNITS/ML 16 UNITS SUB-Q ×2 (11:46→17:17)
[2023-03-30] MEDS: CALCIUM ACETATE 667 MG TABLET PO ×2 (11:46→17:09)
--- NOTE | 2023-03-30 12:44 | PM.IMPN ---
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 Patient had cystoscopy scheduled for today Continue IV Zosyn Diabetes with multiple comorbid conditions HBA1c ( goal <7.0%) , Renal functions, Liver panel every 3 months Routine glucose monitoring. Watch for Hypoglycemia. BMI goal < 25 End-stage renal disease And gentle hydration. Currently on dialysis Avoid nephrotoxic drugs. Creatinine 6.0 Monitor antihypertensive drugs Avoid NSAIDs. Routine CMP monitor GFR. Continue sliding scale Severe peripheral vascular disease Currently on Eliquis which is on hold due to surgery. DVT prophylaxis SCDs DVT prophylaxis. SCDs GI prophylaxis. Protonix All records reviewed Discussed plan of care with the nursing staff and with the patient in detail. Answered all questions and concerns from the patient. All labs have been reviewed. Code status updated dictation may have been done utilizing a voice recognition system. Attempts have been made to correct errors. However, there may be uncorrected grammatical, spelling, and recognition errors present. Subjective Date/time seen: 03/30/23 12:44 Interval history: Follow-up for end stage renal disease on hemodialysis. Scheduled for surgery today Review of Systems Review of Systems: All systems reviewed & are unremarkable except as noted in HPI and below Exam Narrative: GENERAL: Well appearing, no acute distress. HEAD: Normocephalic, atraumatic. NECK: Supple. No adenopathy, no masses. RESPIRATORY: respirations nonlabored. , no rales, wheezing. CARDIOVASCULAR: Regular rate and rhythm without murmurs, MUSCULOSKELETAL: no Epigastric and no hypochondrial tenderness SKIN: Warm, dry, NEURO: A&O X3. Moves all extremities GI: Inspection: non-distended and visible herniation GI Palp: Yes Soft to palpation, No Tenderness to palpation present (GI), No Guarding due to palpation present (GI), Yes Hernia present umbilical 3-10 cm (soft, reducible, nontender) and No Rebound tenderness present Objective Data Vital Signs Vital Signs: Vital Signs - 24 hr 03/29/23 14:15 03/29/23 16:17 03/29/23 16:30 Temperature 36.5 C 36.4 C Pulse Rate 67 67 60 Respiratory Rate 16 12 12 Blood Pressure 115/48 L 114/50 L 127/89 Pulse Oximetry 100 99 94 Oxygen Delivery Room Air Simple Face Mask Nasal Cannula Oxygen Flow Rate 8 2 03/29/23 16:45 03/29/23 17:00 03/29/23 17:15 Temperature Pulse Rate 67 65 65 Respiratory Rate 16 16 18 Blood Pressure 123/65 149/59 H 137/64 Pulse Oximetry 97 98 99 Oxygen Delivery Nasal Cannula Nasal Cannula Nasal Cannula Oxygen Flow Rate 2 2 2 03/29/23 17:42 03/29/23 17:54 03/29/23 18:04 Temperature 36.8 C 36.1 C L Pulse Rate 72 67 Respiratory Rate 16 18 Blood Pressure 166/41 H 123/45 L Pulse Oximetry 86 L Oxygen Delivery Room Air Oxygen Flow Rate 03/29/23 18:06 03/29/23 18:07 03/29/23 18:31 Temperature 36.5 C Pulse Rate 71 Respiratory Rate 22 H Blood Pressure 115/46 L Pulse Oximetry 95 100 Oxygen Delivery Room Air Nasal Cannula Oxygen Flow Rate 2 03/29/23 19:01 03/29/23 20:00 03/29/23 22:11 Temperature 36.6 C 36.2 C L Pulse Rate 70 60 60 Respiratory Rate 20 16 Blood Pressure 109/50 L 127/43 L Pulse Oximetry 100 98 Oxygen Delivery Oxygen Flow Rate 03/30/23 00:00 03/29/23 20:00 03/30/23 04:00 Temperature 36.4 C 36.1 C L Pulse Rate 68 68 50 L Respirat
--- NOTE | 2023-03-30 12:56 | WPDUROPN2 ---
Progress Note: A&P Assessment and Plan (1) Bladder spasm: Code(s): N32.89 - Other specified disorders of bladder Status: Acute Assessment and Plan: Patient is doing much better at this time. Will remove Black catheter. Does not require any further intervention from my standpoint at this time. Subjective Subjective Date/Time Seen: 03/30/23 12:56 Principal diagnosis: Bladder spasms possible colovesical fistula Interval history: Kelley is feeling better today. Her CBI is clear and off at this time. There was no evidence of feces in the bladder on cystoscopy. She has a low capacity bladder and did have a little bit of purulence in it. I do not see any evidence of a colo vesical fistula at this time. Review of Systems Review of Systems: All systems reviewed & are unremarkable except as noted in HPI and below Exam Const: General: cooperative and no acute distress GI: Inspection: non-distended GI Palp: Yes Soft to palpation Objective Data Vital Signs Vital Signs: Vital Signs - 24 hr 03/29/23 14:15 03/29/23 16:17 03/29/23 16:30 Temperature 36.5 C 36.4 C Pulse Rate 67 67 60 Respiratory Rate 16 12 12 Blood Pressure 115/48 L 114/50 L 127/89 Pulse Oximetry 100 99 94 Oxygen Delivery Room Air Simple Face Mask Nasal Cannula Oxygen Flow Rate 8 2 03/29/23 16:45 03/29/23 17:00 03/29/23 17:15 Temperature Pulse Rate 67 65 65 Respiratory Rate 16 16 18 Blood Pressure 123/65 149/59 H 137/64 Pulse Oximetry 97 98 99 Oxygen Delivery Nasal Cannula Nasal Cannula Nasal Cannula Oxygen Flow Rate 2 2 2 03/29/23 17:42 03/29/23 17:54 03/29/23 18:04 Temperature 36.8 C 36.1 C L Pulse Rate 72 67 Respiratory Rate 16 18 Blood Pressure 166/41 H 123/45 L Pulse Oximetry 86 L Oxygen Delivery Room Air Oxygen Flow Rate 03/29/23 18:06 03/29/23 18:07 03/29/23 18:31 Temperature 36.5 C Pulse Rate 71 Respiratory Rate 22 H Blood Pressure 115/46 L Pulse Oximetry 95 100 Oxygen Delivery Room Air Nasal Cannula Oxygen Flow Rate 2 03/29/23 19:01 03/29/23 20:00 03/29/23 22:11 Temperature 36.6 C 36.2 C L Pulse Rate 70 60 60 Respiratory Rate 20 16 Blood Pressure 109/50 L 127/43 L Pulse Oximetry 100 98 Oxygen Delivery Oxygen Flow Rate 03/30/23 00:00 03/29/23 20:00 03/30/23 04:00 Temperature 36.4 C 36.1 C L Pulse Rate 68 68 50 L Respiratory Rate 13 13 17 Blood Pressure 111/62 104/55 L Pulse Oximetry 94 94 100 Oxygen Delivery Nasal Cannula Oxygen Flow Rate 2 03/30/23 08:00 03/30/23 08:00 03/30/23 12:00 Temperature 36.6 C 36.6 C Pulse Rate 71 70 Respiratory Rate 20 22 H Blood Pressure 122/66 125/54 L Pulse Oximetry 97 97 98 Oxygen Delivery Nasal Cannula Oxygen Flow Rate 2 Intake/Output Intake/Output: Intake & Output 03/27/23 03/28/23 03/29/23 03/30/23 23:59 23:59 23:59 23:59 Intake Total 50 1750 250 787 Output Total 3050 1450 0 Balance 50 -1300 -1200 787 Meds/Results Medications: Active Medications Generic Name Dose Route Start Last Admin Trade Name Freq PRN Reason Stop Dose Admin Allopurinol 100 mg 03/30/23 10:00 03/30/23 09:38 Allopurinol 100 Mg Tablet PO 100 mg DAILY@0800 [facility] Administration Atorvastatin Calcium 20 mg 03/30/23 09:00 03/30/23 09:38 Atorvastatin 20 Mg Tablet PO 20 mg DAILY MICHELL Administration Bupropion HCl 100 mg 03/30/23 09:00 03/30/23 09:38 Bupropion Hcl Sr (12hr) 100 Mg Tabcr PO 100 mg Q12HR MICHELL Administration Calcium Acetate 667 mg 03/30/23 13:00 03/30/23 11:46 Calcium Acetate 667 Mg Tablet PO 667 mg TID MICHELL Administration Carvedilol 25 mg 03/28/23 09:00 03/30/23 08:29 Carvedilol 25 Mg Tablet PO 25 mg Q12HR MICHELL Administration Dextrose 12.5 gm 03/28/23 02:53 Dextrose 50% 25 Gm/50 Ml Syringe IV PUSH PRN PRN Hypoglycemia Protocol Docusate Sodium 100 mg 03/30/23 09:23 Docusate Sodium 100 Mg Capsule PO Q12HR P
--- NOTE | 2023-03-30 16:23 | PM.PNGS ---
Progress Note: A&P Assessment and Plan (1) Urinary tract infection: Code(s): N39.0 - Urinary tract infection, site not specified Status: Acute Assessment and Plan: No fistula identified on cystoscopy or hypaque enema. No signs of diverticulitis. Continue treatment per Urology and Hospitalist. Will sign off. (2) Cholelithiasis: Code(s): K80.20 - Calculus of gallbladder without cholecystitis without obstruction Status: Acute Assessment and Plan: Patient not having any gallbladder symptoms at this time. She would like gallbladder removed because she has had nausea/vomiting with eating meat in the past. Discussed that this would not be recommended during other acute infections, therefore she will have to follow up as an outpatient once UTI is cleared. Will discuss surgical options further in office. (3) Anticoagulant long-term use: Code(s): Z79.01 - residential (current) use of anticoagulants Status: Acute (4) End-stage renal disease on hemodialysis: Code(s): N18.6 - End stage renal disease; Z99.2 - Dependence on renal dialysis Status: Chronic Subjective Subjective Date/Time Seen: 03/30/23 16:23 Interval history: No abdominal pain. Doing well since urinary catheter removed. No nausea or vomiting. Exam GI: Inspection: non-distended and visible herniation GI Palp: Yes Soft to palpation, No Tenderness to palpation present (GI) and No Guarding due to palpation present (GI) Objective Data Vital Signs Vital Signs: Vital Signs - 24 hr 03/29/23 16:30 03/29/23 16:45 03/29/23 17:00 Temperature Pulse Rate 60 67 65 Respiratory Rate 12 16 16 Blood Pressure 127/89 123/65 149/59 H Pulse Oximetry 94 97 98 Oxygen Delivery Nasal Cannula Nasal Cannula Nasal Cannula Oxygen Flow Rate 2 2 2 03/29/23 17:15 03/29/23 17:42 03/29/23 17:54 Temperature 36.8 C Pulse Rate 65 72 Respiratory Rate 18 16 Blood Pressure 137/64 166/41 H Pulse Oximetry 99 Oxygen Delivery Nasal Cannula Room Air Oxygen Flow Rate 2 03/29/23 18:04 03/29/23 18:06 03/29/23 18:07 Temperature 36.1 C L Pulse Rate 67 Respiratory Rate 18 Blood Pressure 123/45 L Pulse Oximetry 86 L 95 Oxygen Delivery Room Air Nasal Cannula Oxygen Flow Rate 2 03/29/23 18:31 03/29/23 19:01 03/29/23 20:00 Temperature 36.5 C 36.6 C 36.2 C L Pulse Rate 71 70 60 Respiratory Rate 22 H 20 16 Blood Pressure 115/46 L 109/50 L 127/43 L Pulse Oximetry 100 100 98 Oxygen Delivery Oxygen Flow Rate 03/29/23 22:11 03/30/23 00:00 03/29/23 20:00 Temperature 36.4 C Pulse Rate 60 68 68 Respiratory Rate 13 13 Blood Pressure 111/62 Pulse Oximetry 94 94 Oxygen Delivery Nasal Cannula Oxygen Flow Rate 2 03/30/23 04:00 03/30/23 08:00 03/30/23 08:00 Temperature 36.1 C L 36.6 C Pulse Rate 50 L 71 Respiratory Rate 17 20 Blood Pressure 104/55 L 122/66 Pulse Oximetry 100 97 97 Oxygen Delivery Nasal Cannula Oxygen Flow Rate 2 03/30/23 12:00 Temperature 36.6 C Pulse Rate 70 Respiratory Rate 22 H Blood Pressure 125/54 L Pulse Oximetry 98 Oxygen Delivery Oxygen Flow Rate Intake/Output Intake/Output: Intake & Output 03/27/23 03/28/23 03/29/23 03/30/23 23:59 23:59 23:59 23:59 Intake Total 50 8501 314 6912 Output Total 3050 1450 0 Balance 50 -1300 -1200 1024 Meds/Results Medications: Active Medications Generic Name Dose Route Start Last Admin Trade Name Freq PRN Reason Stop Dose Admin Allopurinol 100 mg 03/30/23 10:00 03/30/23 09:38 Allopurinol 100 Mg Tablet PO 100 mg DAILY@0800 MICHELL Administration Atorvastatin Calcium 20 mg 03/30/23 09:00 03/30/23 09:38 Atorvastatin 20 Mg Tablet PO 20 mg DAILY MICHELL Administration Bupropion HCl 100 mg 03/30/23 09:00 03/30/23 09:38 Bupropion Hcl Sr (12hr) 100 Mg Tabcr PO 100 mg Q12HR MICHELL Administration Calcium Acetate 667 mg 03/30/23 13:00 03/30/23 11:46 Calcium Acetate
[2023-03-30 16:32] LABS: Glucose Point of Care 184 mg/dl (65-105)
[2023-03-30] MEDS: DEXTROSE 5% 1,000 ML 1,000 ML 100 ML IVPB (20:35)
[2023-03-30] MEDS: DEXTROSE 50% 25 GM/50 ML SYRINGE IV PUSH ×2 (20:36→22:39)
--- NOTE | 2023-03-30 20:43 | PC.NURSE ---
accu check 36 reported by jose rafael Adams, informed MERLY Quinn, hypoglycemia protocol started.
[2023-03-30 21:00] LABS: Glucose Point of Care 34 mg/dl (65-105)
[2023-03-30 21:00] LABS: Glucose Point of Care 146 mg/dl (65-105)
[2023-03-30 23:03] LABS: Glucose Point of Care 44 mg/dl (65-105)
[2023-03-30 23:03] LABS: Glucose Point of Care 137 mg/dl (65-105)
--- NOTE | 2023-03-30 23:11 | PC.NURSE ---
spoken with PA Gerling decrease fluids to 75 ml/hr for dextrose drip
--- NOTE | 2023-03-30 23:14 | PC.NURSE ---
MERLY barrera informed about 44 bs and 137 after dextrose pushed IV. Patient continued on dextrose drip at 75 ml/hr. patient bladder scanned 0 ml, no urination after paz pulled, patient is dialysis patient.
--- NOTE | 2023-03-30 23:22 | PC.NURSE ---
patient stated that she does not make urinate
[2023-03-31] VITALS (18 sets, daily range): BP systolic 121–179; BP diastolic 27–80; PULSE 55–78; RESP 13–22; TEMP 36.2–37.1; O2SAT 94–100
[2023-03-31 00:56] LABS: Glucose Point of Care 93 mg/dl (65-105)
[2023-03-31] MEDS: PIPERACILLIN/TAZ 2.25G/NS 50ML 2.25 GM/50 ML BAG IVPB ×3 (01:02→21:29)
--- NOTE | 2023-03-31 01:07 | PC.NURSE ---
patient continued on dextrose drip, bs 93
[2023-03-31 03:49] LABS: Glucose Point of Care 127 mg/dl (65-105)
[2023-03-31] MEDS: ACETAMINOPHEN 325 MG TABLET 650 MG PO (04:20)
[2023-03-31 06:49] LABS: Basophils Absolute Auto 0.1 K/mm3 (0.0-0.1); Basophils Percent Auto 0.7 % (0.2-1.2); Eosinophils Absolute Auto 0.2 K/mm3 (0-0.3); Eosinophils Percent Auto 2.4 % (0-4.4); Hematocrit 42.1 % (37.0-47.0); Hemoglobin 12.6 g/dL (12.0-15.0); Immature Granulocyte Absolute 0.05 K/mm3 (0.00-0.031); Immature Granulocyte Percent A 0.7 % (0-0.5); Lymphocytes Absolute Auto 0.86 K/mm3 (0.9-3.2); Lymphocytes Percent Auto 12.3 % (18.3-44.2); Mean Corpuscular HGB Conc 29.9 g/dl (32-36); Mean Corpuscular Hemoglobin 32.7 pg (26-34); Mean Corpuscular Volume 109.4 fl (80-100); Mean Platelet Volume 11.9 fl (7.4-10.4); Monocytes Absolute Auto 0.6 K/mm3 (0.1-0.6); Monocytes Percent Auto 8.6 % (2.6-8.5); Neutrophils Absolute Auto 5.3 K/mm3 (1.3-6.7); Neutrophils Percent Auto 75.3 % (45.5-73.1); Platelet Count Result 117 k/mm3 (150-375); Red Blood Count 3.85 M/mm3 (4.2-5.4); Red Cell Distribution Width 15.7 % (11.5-14.5)
[2023-03-31 07:01] LABS: Alanine Aminotransferase 25 U/L (6-35); Alkaline Phosphatase 131 U/L (38-126); Anion Gap 12 mmol/L (8-16); Aspartate Amino Transferase 44 U/L (14-36); Bilirubin,Total 1.6 mg/dL (0.2-1.3); Blood Urea Nitrogen 22 mg/dL (7-17); Calcium 7.5 mg/dL (8.4-10.2); Carbon Dioxide 22 mmol/L (22-30); Chloride 98 mmol/L (98-107); Estimated CRCL calculation 10 ml/min; Estimated Glomerular Filt Rate 8; Glucose 135 mg/dL (65-110); Phosphorus 4.3 mg/dL (2.5-4.5); Potassium 3.9 mmol/L (3.4-5.0); Sodium 132 mmol/L (137-145)
[2023-03-31 07:49] LABS: Anisocytosis 2+ (NORMAL); Hypochromasia 1+ (NORMAL); Macrocytosis 2+ (NORMAL); Schistocytes None Seen (NORMAL)
[2023-03-31 07:59] LABS: Glucose Point of Care 153 mg/dl (65-105)
--- NOTE | 2023-03-31 08:14 | PC.NURSE ---
Pt. to dialysis via bed.
[2023-03-31] MEDS: SODIUM CHLORIDE 0.9% IV 1,000 ML 999 ML IV CONT (08:32)
--- NOTE | 2023-03-31 09:50 | P.PNNP_ITS ---
Progress Note: A&P Assessment and Plan (1) End-stage renal disease (ESRD): Onset Date: Unknown Code(s): N18.6 - End stage renal disease Status: Chronic Assessment and Plan: * HD today * fluid removal * (2) [place]-vesical fistula: Code(s): N32.1 - Vesicointestinal fistula Status: Acute Assessment and Plan: * as suggested by admission CT scf * Urology and Surgery following * cystoscopy planned later todday * supportive therapy (3) Hypertension: Code(s): I10 - Essential (primary) hypertension Status: Chronic Assessment and Plan: * blood pressure is a bit high today. * Will see how it is after fluid is removed * it had been running in the 100-130 range. (4) Anemia: Code(s): D64.9 - Anemia, unspecified Status: Chronic Assessment and Plan: * H/H supratherapeutic for a dialysis patient * Not getting Epogen now. * Hemoglobin still 12.6 today. (5) Insulin dependent type 2 diabetes mellitus: Code(s): E11.9 - Type 2 diabetes mellitus without complications; Z79.4 - [facility] (current) use of insulin Status: Chronic Assessment and Plan: * follow accu-cheks * glycemic control per hospitalists Subjective Date/time seen: 03/31/23 09:50 Interval history: patient is feeling well. Eating some breakfast. She is on dialysis now. She is tolerating this well. Fluid is being removed. She was seen at 8:30 a.m.. Exam Narrative: General: WD/WN female in NAD Heart: normal S1 and S2; no rub or gallop Lungs: clear to auscultation Abdomen: soft, nontender, nondistended, positive bowel sounds Extremities: no cyanosis or clubbing; no edema Skin: No rash Objective Data Vital Signs Vital Signs: Vital Signs - 24 hr 03/30/23 12:00 03/30/23 16:00 03/30/23 20:00 Temperature 97.8 F 97.8 F Pulse Rate 70 64 Respiratory Rate 22 H 24 H Blood Pressure 125/54 L 107/57 L Pulse Oximetry 98 97 97 Oxygen Delivery Nasal Cannula Oxygen Flow Rate 2 03/30/23 20:44 03/30/23 21:05 03/30/23 21:46 Temperature 97.6 F 97.6 F Pulse Rate 79 79 62 Respiratory Rate 20 12 Blood Pressure 106/54 L 106/45 L Pulse Oximetry 96 96 Oxygen Delivery Nasal Cannula Oxygen Flow Rate 2 03/31/23 05:21 03/31/23 08:00 03/31/23 08:23 Temperature 97.1 F L 97.4 F L Pulse Rate 65 67 Respiratory Rate 14 18 Blood Pressure 121/52 L 139/39 L Pulse Oximetry 100 Oxygen Delivery Room Air Oxygen Flow Rate 03/31/23 08:32 03/31/23 08:45 03/31/23 09:00 Temperature Pulse Rate 68 70 68 Respiratory Rate Blood Pressure 151/48 H 179/50 H 173/58 H Pulse Oximetry Oxygen Delivery Oxygen Flow Rate Intake/Output Intake/Output: Intake & Output 03/28/23 03/29/23 03/30/23 03/31/23 23:59 23:59 23:59 23:59 Intake Total 3467 556 4331 550 Output Total 3050 1450 0 Balance -1300 -1200 1981 550 Meds/Results Medications:
--- NOTE | 2023-03-31 09:50 | PM.PNNEP ---
Progress Note: A&P Assessment and Plan (1) End-stage renal disease (ESRD): Onset Date: Unknown Code(s): N18.6 - End stage renal disease Status: Chronic Assessment and Plan: HD today fluid removal (2) [place]-vesical fistula: Code(s): N32.1 - Vesicointestinal fistula Status: Acute Assessment and Plan: as suggested by admission CT scf Urology and Surgery following cystoscopy planned later todday supportive therapy (3) Hypertension: Code(s): I10 - Essential (primary) hypertension Status: Chronic Assessment and Plan: blood pressure is a bit high today. Will see how it is after fluid is removed it had been running in the 100-130 range. (4) Anemia: Code(s): D64.9 - Anemia, unspecified Status: Chronic Assessment and Plan: H/H supratherapeutic for a dialysis patient Not getting Epogen now. Hemoglobin still 12.6 today. (5) Insulin dependent type 2 diabetes mellitus: Code(s): E11.9 - Type 2 diabetes mellitus without complications; Z79.4 - care home (current) use of insulin Status: Chronic Assessment and Plan: follow accu-cheks glycemic control per hospitalists Subjective Date/time seen: 03/31/23 09:50 Interval history: patient is feeling well. Eating some breakfast. She is on dialysis now. She is tolerating this well. Fluid is being removed. She was seen at 8:30 a.m.. Exam Narrative: General: WD/WN female in NAD Heart: normal S1 and S2; no rub or gallop Lungs: clear to auscultation Abdomen: soft, nontender, nondistended, positive bowel sounds Extremities: no cyanosis or clubbing; no edema Skin: No rash Objective Data Vital Signs Vital Signs: Vital Signs - 24 hr 03/30/23 12:00 03/30/23 16:00 03/30/23 20:00 Temperature 97.8 F 97.8 F Pulse Rate 70 64 Respiratory Rate 22 H 24 H Blood Pressure 125/54 L 107/57 L Pulse Oximetry 98 97 97 Oxygen Delivery Nasal Cannula Oxygen Flow Rate 2 03/30/23 20:44 03/30/23 21:05 03/30/23 21:46 Temperature 97.6 F 97.6 F Pulse Rate 79 79 62 Respiratory Rate 20 12 Blood Pressure 106/54 L 106/45 L Pulse Oximetry 96 96 Oxygen Delivery Nasal Cannula Oxygen Flow Rate 2 03/31/23 05:21 03/31/23 08:00 03/31/23 08:23 Temperature 97.1 F L 97.4 F L Pulse Rate 65 67 Respiratory Rate 14 18 Blood Pressure 121/52 L 139/39 L Pulse Oximetry 100 Oxygen Delivery Room Air Oxygen Flow Rate 03/31/23 08:32 03/31/23 08:45 03/31/23 09:00 Temperature Pulse Rate 68 70 68 Respiratory Rate Blood Pressure 151/48 H 179/50 H 173/58 H Pulse Oximetry Oxygen Delivery Oxygen Flow Rate Intake/Output Intake/Output: Intake & Output 03/28/23 03/29/23 03/30/23 03/31/23 23:59 23:59 23:59 23:59 Intake Total 9537 251 7110 550 Output Total 3050 1450 0 Balance -1300 -1200 1981 550 Meds/Results Medications: Active Medications Generic Name Dose Route Start Last Admin Trade Name Freq PRN Reason Stop Dose Admin Acetaminophen 650 mg 03/31/23 04:18 03/31/23 04:20 Acetaminophen 325 Mg Tablet PO 650 mg Q6H PRN Administration Mild Pain (1-3) or Fever Allopurinol 100 mg 03/30/23 10:00 03/30/23 09:38 Allopurinol 100 Mg Tablet PO 100 mg DAILY@0800 [facility] Administration Atorvastatin Calcium 20 mg 03/30/23 09:00 03/30/23 09:38 Atorvastatin 20 Mg Tablet PO 20 mg DAILY MICHELL Administration Bupropion HCl 100 mg 03/30/23 09:00 03/30/23 21:05 Bupropion Hcl Sr (12hr) 100 Mg Tabcr PO Not Given Q12HR MICHELL Calcium Acetate 667 mg 03/30/23 13:00 03/30/23 17:09 Calcium Acetate 667 Mg Tablet PO 667 mg TID MICHELL Administration Carvedilol 25 mg 03/28/23 09:00 03/30/23 21:05 Carvedilol 25 Mg Tablet PO Not Given Q12HR MICHELL Dextrose 12.5 gm 03/28/23 02:53 03/30/23 22:39 Dextrose 50% 25 Gm/50 Ml Syringe IV PUSH 12.5 gm
[2023-03-31 11:53] LABS: Glucose Point of Care 133 mg/dl (65-105)
[2023-03-31] MEDS: CALCIUM ACETATE 667 MG TABLET PO ×2 (11:53→17:22)
[2023-03-31] MEDS: buPROPion HCL SR (12HR) 100 MG TABCR PO ×2 (11:53→21:30)
[2023-03-31] MEDS: allopurinoL 100 MG TABLET PO (11:53)
[2023-03-31] MEDS: carvediloL 25 MG TABLET PO ×2 (11:53→21:30)
[2023-03-31] MEDS: ATORVASTATIN 20 MG TABLET PO (11:53)
[2023-03-31] MEDS: PANTOPRAZOLE SODIUM IV 40 MG VIAL IV PUSH (11:54)
[2023-03-31] MEDS: TOLNAFTATE 1% POWDER 45 GM BTL 1 APPLIC TOPICAL ×2 (11:54→20:10)
--- NOTE | 2023-03-31 12:03 | PC.NURSE ---
Pt. back from dialysis at 11:50. 3L taken off.
--- NOTE | 2023-03-31 12:08 | PM.IMPN ---
Progress Note: A&P Assessment and Plan (1) [place]-vesical fistula: Code(s): N32.1 - Vesicointestinal fistula Status: Acute (2) Status post below knee amputation of right lower extremity: Onset Date: 12/2020 Code(s): Z89.511 - Acquired absence of right leg below knee Status: Acute (3) Abdominal pain: Code(s): R10.9 - Unspecified abdominal pain Status: Acute (4) Uncontrolled diabetes mellitus with ESRD (end-stage renal disease): Status: Acute Plan Colovesical fistula/UTI No surgical intervention done. History of cholelithiasis will monitor as outpatient in the care of surgeon Patient had cystoscopy Continue IV Zosyn for today will DC on discharge Urine cultures showed VRE is sensitive to Macrobid started Diabetes with multiple comorbid conditions HBA1c ( goal <7.0%) , Renal functions, Liver panel every 3 months Routine glucose monitoring. Watch for Hypoglycemia. Will readjust insulin dose Patient possible discharge home tomorrow BMI goal < 25 End-stage renal disease And gentle hydration. Currently on dialysis Avoid nephrotoxic drugs. Creatinine 5.0 Monitor antihypertensive drugs Avoid NSAIDs. Routine CMP monitor GFR. Continue sliding scale Severe peripheral vascular disease Will resume Eliquis. DVT prophylaxis SCDs DVT prophylaxis. SCDs GI prophylaxis. Protonix All records reviewed Discussed plan of care with the nursing staff and with the patient in detail. Answered all questions and concerns from the patient. All labs have been reviewed. Code status updated dictation may have been done utilizing a voice recognition system. Attempts have been made to correct errors. However, there may be uncorrected grammatical, spelling, and recognition errors present. Subjective Date/time seen: 03/31/23 12:08 Interval history: patient is feeling well.She is on dialysis now. She is tolerating this well. Review of Systems Review of Systems: All systems reviewed & are unremarkable except as noted in HPI and below Exam Narrative: GENERAL: Well appearing, no acute distress. HEAD: Normocephalic, atraumatic. NECK: Supple. No adenopathy, no masses. RESPIRATORY: respirations nonlabored. , no rales, wheezing. CARDIOVASCULAR: Regular rate and rhythm without murmurs, MUSCULOSKELETAL: no Epigastric and no hypochondrial tenderness SKIN: Warm, dry, NEURO: A&O X3. Moves all extremities GI: Inspection: non-distended and visible herniation GI Palp: Yes Soft to palpation, No Tenderness to palpation present (GI), No Guarding due to palpation present (GI), Yes Hernia present umbilical 3-10 cm (soft, reducible, nontender) and No Rebound tenderness present Objective Data Vital Signs Vital Signs: Vital Signs - 24 hr 03/30/23 16:00 03/30/23 20:00 03/30/23 20:44 Temperature 36.6 C 36.4 C Pulse Rate 64 79 Respiratory Rate 24 H 20 Blood Pressure 107/57 L 106/54 L Pulse Oximetry 97 97 96 Oxygen Delivery Nasal Cannula Nasal Cannula Oxygen Flow Rate 2 2 03/30/23 21:05 03/30/23 21:46 03/31/23 05:21 Temperature 36.4 C 36.2 C L Pulse Rate 79 62 65 Respiratory Rate 12 14 Blood Pressure 106/45 L 121/52 L Pulse Oximetry 96 100 Oxygen Delivery Oxygen Flow Rate 03/31/23 08:00 03/31/23 08:23 03/31/23 08:32 Temperature 36.3 C L Pulse Rate 67 68 Respiratory Rate 18 Blood Pressure 139/39 L 151/48 H Pulse Oximetry Oxygen Delivery Room Air Oxygen Flow Rate 03/31/23 09:15 03/31/23 08:45 03/31/23 09:00 Temperature Pulse Rate 70 70 68 Respiratory Rate Blood Pressure 149/46 H 179/50 H 173/58 H Pulse Oximetry Oxygen Delivery Oxygen Flow Rate 03/31/23 09:30 03/31/23 09:45 03/31/23 10:00 Temperature Pulse Rate 70 55 L 71 Respiratory Rate Blood Pressure 158/42 H 148/62 H 134/32 L Pulse Oximetry Oxygen Delivery Oxygen Flow Rate 03/31/23 10:15 03/31/23 10:30 03/31/23 10:45 Temper
[2023-03-31 16:35] LABS: Glucose Point of Care 182 mg/dl (65-105)
[2023-03-31] MEDS: APIXABAN 2.5 MG TABLET PO (17:22)
[2023-03-31] MEDS: NITROFURANTOIN MONOHYD MACROCR 100 MG CAP PO (17:22)
[2023-03-31] MEDS: INSULIN GLARGINE (*BKC) 100 UNITS/ML 10 UNITS SUB-Q (21:29)
[2023-03-31 21:50] LABS: Glucose Point of Care 287 mg/dl (65-105)
[2023-04-01 05:37] VITALS: PULSE 67; RESP 12; TEMP 36.4; O2SAT 99
[2023-04-01] MEDS: NITROFURANTOIN MONOHYD MACROCR 100 MG CAP PO (05:55)
[2023-04-01] MEDS: PIPERACILLIN/TAZ 2.25G/NS 50ML 2.25 GM/50 ML BAG IVPB ×2 (05:56→14:27)
[2023-04-01 08:26] LABS: Glucose Point of Care 109 mg/dl (65-105)
[2023-04-01] MEDS: allopurinoL 100 MG TABLET PO (08:31)
[2023-04-01] MEDS: buPROPion HCL SR (12HR) 100 MG TABCR PO (08:31)
[2023-04-01] MEDS: APIXABAN 2.5 MG TABLET PO (08:31)
[2023-04-01] MEDS: carvediloL 25 MG TABLET PO (08:31)
[2023-04-01] MEDS: CALCIUM ACETATE 667 MG TABLET PO ×2 (08:31→14:27)
[2023-04-01] MEDS: ATORVASTATIN 20 MG TABLET PO (08:31)
[2023-04-01] MEDS: PANTOPRAZOLE SODIUM IV 40 MG VIAL IV PUSH (08:32)
--- NOTE | 2023-04-01 09:06 | P.PNNP_ITS ---
Progress Note: A&P Assessment and Plan (1) End-stage renal disease (ESRD): Onset Date: Unknown Code(s): N18.6 - End stage renal disease Status: Chronic Assessment and Plan: * HD Sunday * volume status looks okay * electrolytes okay yesterday (2) [place]-vesical fistula: Code(s): N32.1 - Vesicointestinal fistula Status: Acute Assessment and Plan: * as suggested by admission CT scf * Urology and Surgery following * supportive therapy (3) Hypertension: Code(s): I10 - Essential (primary) hypertension Status: Chronic Assessment and Plan: * blood pressure is doing better today at 135/54 (4) Anemia: Code(s): D64.9 - Anemia, unspecified Status: Chronic Assessment and Plan: * H/H supratherapeutic for a dialysis patient * Not getting Epogen now. * Hemoglobin still 12.6 today. 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 She is in good spirits. No belly pain or shortness of breath Exam Narrative: General: WD/WN female in NAD Heart: normal S1 and S2; no rub or gallop Lungs: clear bilaterally Abdomen: soft, nontender, nondistended, positive bowel sounds Extremities: no cyanosis or clubbing; no edema Skin: No rash or subcu nodules Objective Data Vital Signs Vital Signs: Vital Signs - 24 hr 03/31/23 09:15 03/31/23 09:30 03/31/23 09:45 Temperature Pulse Rate 70 70 55 L Respiratory Rate Blood Pressure 149/46 H 158/42 H 148/62 H Pulse Oximetry 03/31/23 10:00 03/31/23 10:15 03/31/23 10:30 Temperature Pulse Rate 71 69 73 Respiratory Rate Blood Pressure 134/32 L 147/37 H 141/38 H Pulse Oximetry 03/31/23 10:45 03/31/23 11:00 03/31/23 11:15 Temperature Pulse Rate 64 75 70 Respiratory Rate Blood Pressure 157/80 H 174/27 H 145/36 H Pulse Oximetry 03/31/23 11:45 03/31/23 11:32 03/31/23 14:00 Temperature 97.2 F L 97.7 F Pulse Rate 77 76 72 Respiratory Rate 20 22 H Blood Pressure 163/31 H 144/76 H 147/51 H Pulse Oximetry 98 03/31/23 21:56 04/01/23 05:37 Temperature 98.0 F 97.6 F Pulse Rate 78 67 Respiratory Rate 13 12 Blood Pressure 135/54 L Pulse Oximetry 94 99 Intake/Output Intake/Output: Intake & Output 03/29/23 03/30/23 03/31/23 04/01/23 23:59 23:59 23:59 23:59 Intake Total 250 1981 1078 750 Output Total 1450 0 3000 Balance -1200 1981 -1921 750 Meds/Results Medications: Active Medications Generic Name Dose Route Start Last Admin Trade Name Freq PRN Reason Stop Dose Admin Acetaminophen 650 mg 03/31/23 04:18 03/31/23 04:20
--- NOTE | 2023-04-01 09:06 | PM.PNNEP ---
Progress Note: A&P Assessment and Plan (1) End-stage renal disease (ESRD): Onset Date: Unknown Code(s): N18.6 - End stage renal disease Status: Chronic Assessment and Plan: HD Sunday volume status looks okay electrolytes okay yesterday (2) [place]-vesical fistula: Code(s): N32.1 - Vesicointestinal fistula Status: Acute Assessment and Plan: as suggested by admission CT scf Urology and Surgery following supportive therapy (3) Hypertension: Code(s): I10 - Essential (primary) hypertension Status: Chronic Assessment and Plan: blood pressure is doing better today at 135/54 (4) Anemia: Code(s): D64.9 - Anemia, unspecified Status: Chronic Assessment and Plan: H/H supratherapeutic for a dialysis patient Not getting Epogen now. Hemoglobin still 12.6 today. (5) Insulin dependent type 2 diabetes mellitus: Code(s): E11.9 - Type 2 diabetes mellitus without complications; Z79.4 - [facility] (current) use of insulin Status: Chronic Assessment and Plan: follow accu-cheks glycemic control per hospitalists Subjective Date/time seen: 04/01/23 09:06 Interval history: Patient feels okay. She is in good spirits. No belly pain or shortness of breath Exam Narrative: General: WD/WN female in NAD Heart: normal S1 and S2; no rub or gallop Lungs: clear bilaterally Abdomen: soft, nontender, nondistended, positive bowel sounds Extremities: no cyanosis or clubbing; no edema Skin: No rash or subcu nodules Objective Data Vital Signs Vital Signs: Vital Signs - 24 hr 03/31/23 09:15 03/31/23 09:30 03/31/23 09:45 Temperature Pulse Rate 70 70 55 L Respiratory Rate Blood Pressure 149/46 H 158/42 H 148/62 H Pulse Oximetry 03/31/23 10:00 03/31/23 10:15 03/31/23 10:30 Temperature Pulse Rate 71 69 73 Respiratory Rate Blood Pressure 134/32 L 147/37 H 141/38 H Pulse Oximetry 03/31/23 10:45 03/31/23 11:00 03/31/23 11:15 Temperature Pulse Rate 64 75 70 Respiratory Rate Blood Pressure 157/80 H 174/27 H 145/36 H Pulse Oximetry 03/31/23 11:45 03/31/23 11:32 03/31/23 14:00 Temperature 97.2 F L 97.7 F Pulse Rate 77 76 72 Respiratory Rate 20 22 H Blood Pressure 163/31 H 144/76 H 147/51 H Pulse Oximetry 98 03/31/23 21:56 04/01/23 05:37 Temperature 98.0 F 97.6 F Pulse Rate 78 67 Respiratory Rate 13 12 Blood Pressure 135/54 L Pulse Oximetry 94 99 Intake/Output Intake/Output: Intake & Output 03/29/23 03/30/23 03/31/23 04/01/23 23:59 23:59 23:59 23:59 Intake Total 250 1981 107 750 Output Total 1450 0 3000 Balance -1200 1981 -1921 750 Meds/Results Medications: Active Medications Generic Name Dose Route Start Last Admin Trade Name Freq PRN Reason Stop Dose Admin Acetaminophen 650 mg 03/31/23 04:18 03/31/23 04:20 Acetaminophen 325 Mg Tablet PO 650 mg Q6H PRN Administration Mild Pain (1-3) or Fever Allopurinol 100 mg 03/30/23 10:00 04/01/23 08:31 Allopurinol 100 Mg Tablet PO 100 mg DAILY@0800 MICHELL Administration Apixaban 2.5 mg 03/31/23 17:00 04/01/23 08:31 Apixaban 2.5 Mg Tablet PO 2.5 mg BID MICHELL Administration Atorvastatin Calcium 20 mg 03/30/23 09:00 04/01/23 08:31 Atorvastatin 20 Mg Tablet PO 20 mg DAILY MICHELL Administration Bupropion HCl 100 mg 03/30/23 09:00 04/01/23 08:31 Bupropion Hcl Sr (12hr) 100 Mg Tabcr PO 100 mg Q12HR MICHELL Administration Calcium Acetate 667 mg 03/30/23 13:00 04/01/23 08:31 Calcium Acetate 667 Mg Tablet PO 667 mg TID MICHELL Administration Carvedilol 25 mg 03/28/23 09:00 04/01/23 08:31 Carvedilol 25 Mg Tablet PO 25 mg Q12HR MICHELL Administration Dextrose 12.5 gm 03/28/23 02:53 03/30/23 22:39 Dextrose 50% 25 Gm/50 Ml Syringe IV PUSH 12.5 gm PRN PRN Administration Hypoglycemia Protocol
--- NOTE | 2023-04-01 09:32 | PM.DS ---
DS: Admitting Diagnosis Discharge Date 04/01/2023 Admitting Diagnosis UTI DS: Discharge Diagnosis Discharge Diagnosis (1) [place]-vesical fistula: Code(s): N32.1 - Vesicointestinal fistula Status: Acute (2) Abdominal pain: Code(s): R10.9 - Unspecified abdominal pain Status: Acute (3) Status post below knee amputation of right lower extremity: Onset Date: 12/2020 Code(s): Z89.511 - Acquired absence of right leg below knee Status: Acute (4) Diabetic retinopathy of both eyes: Code(s): E11.319 - Type 2 diabetes mellitus with unspecified diabetic retinopathy without macular edema Status: Acute (5) Bladder spasm: Code(s): N32.89 - Other specified disorders of bladder Status: Acute (6) Uncontrolled diabetes mellitus with ESRD (end-stage renal disease): Status: Acute DS: Summary Hospital Course Hospital Course: 72-year-old female with past medical history of end-stage renal disease on hemodialysis, 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 She has not been able to make urine for quite some time due to her end-stage renal disease.? Over the last couple of days the bladder spasms have become constant and unrelenting.? The pain is severe.? Her nausea vomiting began 3 days ago and became worse with worsening of the pain.? She has had essentially no oral intake for the last 3 days.? Despite night eating her glucoses have been higher than usual.? She has not had a bowel movement in 4 days.? She denies any drainage or output from her bladder or any leakage of fecal contents despite CTA of the abdomen and pelvis performed in the ER demonstrating questionable fecal content within the urinary bladder and mild urinary bladder wall thickening with possibility of colovesicular fistula. Patient underwent urology consult and will also seen by General surgery patient fistula closed by itself the patient was on antibiotic did well patient also history of dialysis for and was given Zosyn IV patient also has history of gallstones no signs of acute cholecystitis patient will need to see the surgeon as outpatient possible elective surgery patient urine grew VRE for which patient was started on Macrobid patient is currently on dialysis ready for discharge patient ran low blood sugar during hospital stay insulin has been adjusted as per discharge instructions. Patient medically stable for discharge Time Spent with Patient Time attestation: Total time spent providing and/or coordinating discharge services: Exam Narrative: GENERAL: Well appearing, no acute distress. HEAD: Normocephalic, atraumatic. NECK: Supple. No adenopathy, no masses. RESPIRATORY: respirations nonlabored. , no rales, wheezing. CARDIOVASCULAR: Regular rate and rhythm without murmurs, MUSCULOSKELETAL: no Epigastric and no hypochondrial tenderness SKIN: Warm, dry, NEURO: A&O X3. Moves all extremities GI: Inspection: non-distended and visible herniation GI Palp: Yes Soft to palpation, No Tenderness to palpation present (GI), No Guarding due to palpation present (GI), Yes Hernia present umbilical 3-10 cm (soft, reducible, nontender) and No Rebound tenderness present DS: Data Data Completed and Pending Labs on day of discharge: Labs from last 24 hours 04/01/23 03/31/23 03/31/23 08:20 20:04 16:28 POC Capillary Glucose 109 H 287 H 182 H 03/31/23 11:44 POC Capillary Glucose 133 H Discharge Plan Discharge Consulting providers: Petra Thompson; Dimitry Werner Discharging Clinician: Hubert Simms Patient Disposition: Home, Self-Care Activity: as tolerated Diet: diabetic and renal Patient Instructions: Antibiotic Form, Apixaban (By mouth), Heart Failure (DC), Pain Management in Older Adults (DC), High Fib
[2023-04-01 11:55] LABS: Glucose Point of Care 196 mg/dl (65-105)
[2023-04-01 11:55] LABS: Glucose Point of Care 194 mg/dl (65-105)
[2023-04-01] MEDS: TOLNAFTATE 1% POWDER 45 GM BTL 1 APPLIC TOPICAL (14:28)
== END 2023-04-01 15:40 | disposition home or self-care (01) | DRG 698 ==
LOC: ANHED 17:04 → ANH3MEDSUR 18:53
PROVIDERS: Internal Medicine Nephrology; Surgery; Urology; Admitting Provider Family Medicine; Emergency Provider Emergency Medicine; PCP Internal Medicine; Visit Provider Internal Medicine
PROC: 0TJB8ZZ Inspection of Bladder, Via Natural or Artificial Opening Endoscopic (ICD-10-PCS; CPT 52000; principal; 2023-03-29 14:30)
DX: N32.1 Vesicointestinal fistula (principal); N18.6 End stage renal disease; I12.0 Hypertensive chronic kidney disease with stage 5 chronic kidney disease or end stage renal disease; Z68.41 Body mass index [BMI] 40.0-44.9, adult; I50.32 Chronic diastolic (congestive) heart failure; I69.354 Hemiplegia and hemiparesis following cerebral infarction affecting left non-dominant side; N39.0 Urinary tract infection, site not specified; Z16.21 Resistance to vancomycin; B95.2 Enterococcus as the cause of diseases classified elsewhere; E11.22 Type 2 diabetes mellitus with diabetic chronic kidney disease; E11.319 Type 2 diabetes mellitus with unspecified diabetic retinopathy without macular edema; N32.89 Other specified disorders of bladder; H54.7 Unspecified visual loss; F41.8 Other specified anxiety disorders; D64.9 Anemia, unspecified; M19.90 Unspecified osteoarthritis, unspecified site; K80.20 Calculus of gallbladder without cholecystitis without obstruction; K21.9 Gastro-esophageal reflux disease without esophagitis; E66.01 Morbid (severe) obesity due to excess calories; M81.0 Age-related osteoporosis without current pathological fracture; I73.9 Peripheral vascular disease, unspecified; E11.42 Type 2 diabetes mellitus with diabetic polyneuropathy; E78.5 Hyperlipidemia, unspecified; Z98.42 Cataract extraction status, left eye; Z98.41 Cataract extraction status, right eye; Z90.710 Acquired absence of both cervix and uterus; Z90.722 Acquired absence of ovaries, bilateral; Z89.511 Acquired absence of right leg below knee; Z79.4 Long term (current) use of insulin
CPT/HCPCS: 36415; 71045; 74176; 74270; 74430; 80053; 81001; 82948; 83690; 84100; 85025; 85027; 85610; 85730; 86706; 87086; 87088; 87340; 96365; 96375; 99285; A9270; C9113; G0257; J1170; J1815; J2270; J2405; J2543; J2704; J3010; J3360; J7030; J7040; J7070; P9047

== ENCOUNTER 2023-04-23 09:15 | Outpatient (RCR) | payer MEDICARE, MEDICAID, SELFPAY ==
--- NOTE | 2023-04-04 12:06 | OPREHPOC ---
Outpatient Therapy Plan of Care This is a Multidisciplinary Plan of Care that may contain components documented by all disciplines (PT, OT, and ST.) PT Problem 1 PT Problem #1 Knowledge Deficit PT Goal 1 Goal 1* indep with HEP PT Problem 2 PT Problem #2 Pain PT Goal 1 Goal * during sessions, monitor pain in back and legs PT Problem 3 PT Problem #3 Impaired Strength PT Goal 1 Goal increase strength of R and L LE and trunk, to improve transfer and mobility skills: 1* supine R hip and knee exercises x 20 reps 2* supine L LE exercises x 20 reps 3* sit to stand with CGA one for safety and use of both UE's 4* pt able to stand with walker- static x 60 seconds 5* pt able to ambulate in parallel bars 10' with min assist one. 6* pt don/doff prosthesis with 3 verbal cues
--- NOTE | 2023-04-04 12:06 | PTOPEVAL1 ---
Assessment and note entered by Merry Ross, PT Evaluation Information Assessment Status Evaluation Diagnosis pain in L knee Subjective Information use motorized scooter for mobility; slide transfer from scooter to toliet and bed by herself; live alone; assist from caregivers 26 hr/wk-- laundry, clean home, errands, cooking, transportation, care for her dog; have not walked for about 6 years due to bad knees /arthritis; then had BKA 3 years ago; do band exercises for legs; last time had PT about 6 months ago, at another facility; worked on leg exercises and standing with walker, took 2-3 steps; have not had her R prosthesis on for about 6 months; put it on today, just before coming in for therapy GOAL: walk with walker; get stronger; Reported Pain Level Pain Score Self Report Additional Pain Score Comments pain range of 0-5/10; sharp, pinging pain in both legs: both posterior calves and thighs; Assessment PT Clinical Summary Kelley has the diagnosis of L knee pain. She reports she wants to work on getting legs stronger standing and walking. She has not been wearing her prosthesis on R leg for about the past 6 months, when previous therapy stopped, and she was standing and shifting her weight. Caregiver is donning and doffing her prosthesis. She is using a motorized scooter for mobility. Her medical history includes LBP, R BKA, legally blind, dialysis 3x/wk, diabetes, COPD. With the evaluation, she has knee flexion contractures R and L; weakness of both legs and trunk; requires assist with supine to sit transfer and standing in parallel bars for few seconds only and moderate assist 1. Skilled PT services are indicated to increase LE strength, transfer skills, hip and knee ROM and gait skills, prosthetic training and gait retraining. Plan of Care Interventions Gait Training,Hot Pack/Cold Pack,Manual Therapy, Neuro Re-education,Patient/Caregiver Education, Prosthetic Training,Therapeutic Activities, Therapeutic Exercise,Self-Care/Home Management PT Services Indicated Yes
--- NOTE | 2023-04-13 09:33 | PCPTNOTE ---
Pt. called at time of appointment and reported she would not be in for therapy this date due to her ride not showing up.
--- NOTE | 2023-04-18 09:34 | PCPTNOTE ---
Pt. called and cancelled due to no transportation available. Prashanth Hendrickson, MPT
--- NOTE | 2023-04-20 12:19 | PCPTNOTE ---
Patient No Show today.
--- NOTE | 2023-04-27 10:49 | PCPTNOTE ---
Patient cancelled secondary to ill.
--- NOTE | 2023-04-30 09:51 | PCPTNOTE ---
Pt's appt was cancelled because pt was admitted to hospital over the weekend.
--- NOTE | 2023-05-10 13:24 | PTOPDC ---
Assessment and note entered by Merry Ross, PT Discharge Information Assessment Status Discharge - Pt Not Present Diagnosis pain in L knee Assessment PT Clinical Summary Kelley was admitted to the hospital and then to in pt Rehab Unit. Discharge PT services. The goals were not addressed. Plan of Care PT Services Indicated No
== END 2023-05-10 14:24 | disposition home or self-care (01) ==
LOC: ANHPT 09:15
PROVIDERS: PCP Internal Medicine; Visit Provider Orthopaedic Surgery
DX: M25.562 Pain in left knee (principal)
CPT/HCPCS: 97110; 97162; 97530; 99199

== ENCOUNTER 2023-04-26 09:44 | Emergency (ER) | payer MEDICARE, SELFPAY ==
[2023-04-26] VITALS (10 sets, daily range): BP systolic 124–172; BP diastolic 54–88; PULSE 81–86; RESP 16–17; TEMP 36.8; O2SAT 91–100
--- NOTE | ~2023-04-26 | CT_ITS ---
EXAMINATION: CT abdomen pelvis wo con DATE: 04/26/2023 11:34 INDICATION: Skin infection. Assess for deep space infection TECHNIQUE: Computed tomography (CT) of the abdomen and pelvis was performed without intravenous contr ast. Automated exposure control and iterative reconstruction technique were employed. The dose-length product was 1544.98 mGy-cm. COMPARISON: 04/06/2023 FINDINGS: Discoid atelectasis in the left lower lobe and lingula. Cardiomegaly. Atherosclerotic coronary artery calcific lesion. No pericardial or pleural effusion. There is small amount of high attenuation mater ial either sludge or gallstones the dependent aspect of the otherwise normal-appearing gallbladder. L iver, spleen, pancreas, bilateral adrenal glands and kidneys are normal. There is calcified atheroscl erosis of the aorta and many of the other arteries. Moderate-sized fat-containing umbilical hernia. T here are few sigmoid diverticula without adjacent inflammatory stranding to suggest diverticulitis. S mall bowel and appendix are normal. Bladder is normal. The uterus is not identified and has likely be en surgically resected. No free intraperitoneal gas or fluid. There is skin thickening and subcutaneo us stranding of the panicula at the anterior pelvis. Additional small focus of subcutaneous stranding slightly to the left and inferior to the coccyx. No associated soft tissue gas or abscess. No eviden t stranding deep to the superficial perineal fascia. Severe lumbar spondylosis. IMPRESSION: 1. Skin thickening and subcutaneous stranding at the pedicular the anterior pelvis which can be seen with cellulitis with no evident abscess. 2. Additional small focus of nonspecific stranding in the subcutaneous tissues slightly to the left a nd inferior of the coccyx which could certainly represent cellulitis but also without evident associa jeremiah abscess. 3. Sludge versus gallstones in the otherwise normal gallbladder. 4. Moderate fat-containing umbilical hernia. 5. Cardiomegaly. Reviewed, dictated and finalized at location A. CHBOARD MECHANIC IMPRESSION: 1. Skin thickening and subcutaneous stranding at the pedicular the anterior pel vis which can be seen with cellulitis with no evident abscess. 2. Additional small focus of nonspecific stranding in the subcutaneous tissues slightly to the left and inferior of the coccyx which could certainly represent cellulitis but also without evident associated abscess. 3. Sludge versus gallstones in the otherwise normal gallbladder. 4. Moderate fat-containing umbilical hernia. 5. Cardiomegaly.
--- NOTE | 2023-04-26 10:42 | ED.GENADULT ---
HPI - General Adult General Chief complaint: Unspecified Stated complaint: genatalia pain Time Seen by Provider: 04/26/23 10:35 Source: patient Mode of arrival: EMS Limitations: no limitations History of Present Illness HPI narrative: This is a 72-year-old female PMH of ESRD on dialysis, diabetes, pulmonary hypertension, diabetic retinopathy presents to the ED with chief complaint of rash to the groin for the past 2 days. reports pain over throughout the groin and inner thighs. Reports the pain is in the abdomen as well. Denies fevers, chills, nausea, vomiting, urinary symptoms. Related Data Home Medications Medication Instructions Recorded Confirmed bupropion HCl 150 mg tablet,12 hr 50 mg PO DAILY 05/30/19 03/27/23 sustained-release (Wellbutrin SR) atorvastatin 40 mg tablet 20 mg PO DAILY 09/07/20 03/27/23 allopurinol 100 mg tablet 100 mg PO DAILY 10/21/20 03/27/23 carvedilol 25 mg tablet 25 mg PO BID 10/21/20 03/27/23 blood-glucose meter,continuous 10/27/22 03/27/23 (Dexcom G6 Nozzle Operator) blood-glucose sensor (Dexcom G6 10/27/22 03/27/23 Sensor device) calcium acetate(phosphat bind) 667 667 mg PO TIDWMEAL 03/27/23 03/27/23 mg capsule insulin degludec 200 unit/mL (3 10 unit subcut HS 03/27/23 03/27/23 mL) subcutaneous pen (Tresiba FlexTouch U-200 insulin) nystatin 100,000 unit/gram topical 1 applic topical BID 03/27/23 03/27/23 powder pantoprazole 40 mg tablet,delayed 40 mg PO DAILY 03/27/23 03/27/23 release Allergies Allergy/AdvReac Type Severity Reaction Status Date / Time fentanyl Allergy Hives Verified 04/26/23 09:49 adhesive tape AdvReac Itching Verified 03/29/23 14:55 Review of Systems Review of Systems: All systems as dictated in [facility] Past Medical History Medical History (Updated 04/26/23 @ 12:21 by Brandan Emmanuel PA-C) Anxiety and depression Arthritis Benign thyroid cyst Evaluated by ultrasound a couple of years ago per patient report. Cerebrovascular accident Due to embolic event following a shoulder fracture 2016 with chronic mild left-sided weakness. Chronic venous stasis dermatitis of both lower extremities Contusion of ankle, left Diabetic gastroparesis Diabetic neuropathy Diabetic retinopathy of both eyes End-stage renal disease on hemodialysis Previously on peritoneal dialysis. Gastroesophageal reflux disease Gout Grade II diastolic dysfunction Noted on echo on 07/04/2019. EF 55-60%. Hyperlipidemia Hypertension Infarction of liver (07/07/19) Insulin dependent type 2 diabetes mellitus A1c was 8.9% on 09/08/2020. 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 Morbid obesity Osteomyelitis of right foot Osteoporosis Peripheral arterial disease (Unknown) Retinal detachment Shingles Splenic infarct (07/07/19) Venous stasis dermatitis of both lower extremities Surgical History Surgical History History of bilateral cataract extraction (2009) History of total hysterectomy with bilateral salpingo-oophorectomy (BSO) For benign ovarian mass. Proliferative diabetic retinopathy with history of surgery Status post below knee amputation of right lower extremity (12/2020) Status post excisional debridement (~10/2020) Debridement of diabetic foot ulcer and osteomyelitis of right foot. Status post glaucoma surgery Surgically constructed arteriovenous fistula (2015) Family History Family History Sibling Family history of alcoholism Mother Metastatic colon cancer in female Father Cancer Of the neck due to chemical exposure Son Heroin overdose Her youngest son Motor vehicle collision Her 2nd youngest son Other Hypertension Social History Social History (Reviewed 03/29/23 @ 15:46
[2023-04-26] MEDS: MORPHINE SULFATE (*CRX) 4 MG/ML INJ IV PUSH (10:56)
[2023-04-26 11:03] LABS: Basophils Percent Auto 0.4 % (0.2-1.2); Eosinophils Absolute Auto 0.1 K/mm3 (0-0.3); Eosinophils Percent Auto 1.7 % (0-4.4); Hematocrit 37.6 % (37.0-47.0); Hemoglobin 11.8 g/dL (12.0-15.0); Immature Granulocyte Absolute 0.04 K/mm3 (0.00-0.031); Immature Granulocyte Percent A 0.5 % (0-0.5); Lymphocytes Absolute Auto 0.62 K/mm3 (0.9-3.2); Lymphocytes Percent Auto 7.5 % (18.3-44.2); Mean Corpuscular HGB Conc 31.4 g/dl (32-36); Mean Corpuscular Hemoglobin 32.2 pg (26-34); Mean Corpuscular Volume 102.7 fl (80-100); Mean Platelet Volume 11.5 fl (7.4-10.4); Monocytes Absolute Auto 0.7 K/mm3 (0.1-0.6); Monocytes Percent Auto 8.8 % (2.6-8.5); Neutrophils Absolute Auto 6.8 K/mm3 (1.3-6.7); Neutrophils Percent Auto 81.1 % (45.5-73.1); Platelet Count Result 178 k/mm3 (150-375); Red Blood Count 3.66 M/mm3 (4.2-5.4); Red Cell Distribution Width 16.4 % (11.5-14.5); White Blood Count 8.3 K/mm3 (4.5-10.0)
[2023-04-26] MEDS: TOLNAFTATE 1% POWDER 45 GM BTL 1 APPLIC TOPICAL (11:10)
[2023-04-26 11:11] LABS: Alanine Aminotransferase 22 U/L (6-35); Albumin Level 3.4 g/dL (3.5-5.1); Alkaline Phosphatase 212 U/L (38-126); Anion Gap 11 mmol/L (8-16); Aspartate Amino Transferase 29 U/L (14-36); Bilirubin,Total 2.1 mg/dL (0.2-1.3); Blood Urea Nitrogen 48 mg/dL (7-17); Calcium 7.5 mg/dL (8.4-10.2); Carbon Dioxide 29 mmol/L (22-30); Chloride 93 mmol/L (98-107); Estimated CRCL calculation 6 ml/min; Estimated Glomerular Filt Rate 5; Glucose 163 mg/dL (65-110); Potassium 3.6 mmol/L (3.4-5.0); Sodium 133 mmol/L (137-145)
== END 2023-04-26 14:25 | disposition home or self-care (01) ==
PROVIDERS: Emergency Provider Physician Assistant; PCP Internal Medicine
DX: L30.4 Erythema intertrigo (principal); E11.22 Type 2 diabetes mellitus with diabetic chronic kidney disease; I12.0 Hypertensive chronic kidney disease with stage 5 chronic kidney disease or end stage renal disease; N18.6 End stage renal disease; E11.43 Type 2 diabetes mellitus with diabetic autonomic (poly)neuropathy; K31.84 Gastroparesis; E11.40 Type 2 diabetes mellitus with diabetic neuropathy, unspecified; E11.319 Type 2 diabetes mellitus with unspecified diabetic retinopathy without macular edema; E78.5 Hyperlipidemia, unspecified; I87.2 Venous insufficiency (chronic) (peripheral); I27.20 Pulmonary hypertension, unspecified; E66.01 Morbid (severe) obesity due to excess calories; Z68.34 Body mass index [BMI] 34.0-34.9, adult; M81.0 Age-related osteoporosis without current pathological fracture; M19.90 Unspecified osteoarthritis, unspecified site; K21.9 Gastro-esophageal reflux disease without esophagitis; F41.9 Anxiety disorder, unspecified; F32.A Depression, unspecified; Z86.73 Personal history of transient ischemic attack (TIA), and cerebral infarction without residual deficits; Z98.42 Cataract extraction status, left eye; Z98.41 Cataract extraction status, right eye; Z90.710 Acquired absence of both cervix and uterus; Z90.722 Acquired absence of ovaries, bilateral; Z90.79 Acquired absence of other genital organ(s); Z89.511 Acquired absence of right leg below knee; Z79.01 Long term (current) use of anticoagulants; Z79.4 Long term (current) use of insulin
CPT/HCPCS: 36415; 74176; 80053; 85025; 96374; 99284; A9270; J2270

== ENCOUNTER 2023-04-28 15:57 | Inpatient (IN) | payer MEDICARE, SELFPAY ==
--- NOTE | ~2023-04-28 | XR_ITS ---
EXAMINATION: XR chest 1V portable INDICATION: Cough TECHNIQUE: Portable AP chest at 1103 hours COMPARISON: 03/28/2023 FINDINGS: Cardiomegaly is noted. The lungs are free of acute opacities. No pleural effusion or pneumo thorax. IMPRESSION: 1. Stable cardiomegaly. Reviewed, dictated and finalized at location L. A ANALYTICS MANAGER IMPRESSION: 1. Stable cardiomegaly.
--- NOTE | ~2023-04-28 | US_ITS ---
EXAMINATION: US venous doppler [facility] DATE: 05/01/2023 15:03 INDICATION: Stroke. Lower limb swelling. TECHNIQUE: Grayscale ultrasound images without and with compression and Doppler ultrasound images of the bilateral lower extremity veins were obtained. COMPARISON: 11/18/2020 FINDINGS: The visualized portions of right common femoral vein, profunda (deep) femoral vein, femoral vein, pop liteal vein and greater saphenous vein outflow are patent. There is a right [id number] amputation . The visualized portions of left common femoral vein, profunda femoral vein, femoral vein, popliteal v ein, posterior tibial veins, peroneal veins, gastrocnemius vein and greater saphenous vein outflow ar e patent. IMPRESSION: 1. No deep venous thrombosis in either lower limb. Reviewed, dictated and finalized at location A. Y PACKER
--- NOTE | ~2023-04-28 | CT_ITS ---
EXAMINATION: CTA brain carotid DATE: 05/01/2023 14:06 INDICATION: Cerebrovascular accident. TECHNIQUE: Computed tomographic angiography (CTA) of the head was performed with 100 mL Omnipaque-350 intravenous contrast. CTA of the neck was performed with intravenous contrast. Automated exposure co ntrol and iterative reconstruction technique were employed. The dose-length product was 1037.42 mGy-c m. Maximum intensity projection and volume rendered 3D-reconstructions were created by the technologi st on a separate workstation. COMPARISON: Head CT 05/01/2023 FINDINGS: HEAD CTA: There are scattered areas of low attenuation in the cerebral white matter. There is no intr acranial hemorrhage, acute infarction, or abnormal intracranial mass lesion. There is an old infarct in the right occipital lobe. There is an old infarct in the left basal ganglia. The ventricles are no rmal in size. There is mild mucosal thickening in the ethmoid sinuses. There is a small right mastoid effusion. There are likely changes of ocular lens replacement surgeries. Likely implants in superola teral to the ocular globes. The vertebral arteries are codominant. There is no significant stenosis o f basilar artery or the posterior cerebral arteries. There is no significant stenosis of the intracra nial internal carotid arteries or anterior or middle cerebral arteries. Anterior communicating artery is normal. The posterior communicating arteries are normal. There is no aneurysm. NECK CTA: The central pulmonary arteries are enlarged, consistent with pulmonary arterial hypertensio n. There is a 13 mm nodule in right thyroid lobe, likely not clinically significant. There is no sign ificant stenosis of the vertebral arteries. There is plaque in the proximal internal carotid arteries . There is 0% stenosis of the proximal right internal carotid artery relative to normal distal artery lumen diameter (NASCET criteria). There is 0% stenosis of the proximal left internal carotid artery relative to normal distal artery lumen diameter. There is mild cervical spondylosis. IMPRESSION: 1. Old infarcts in the right occipital lobe and left basal ganglia. 2. Extensive nonspecific cerebral white matter disease, which likely represents chronic small vessel ischemic disease. 3. No aneurysm or significant intracranial arterial stenosis. 4. 0% stenosis of the proximal internal carotid arteries relative to normal distal artery lumen diame ters (NASCET criteria). Reviewed, dictated and finalized at location A. SING ROOM ATTENDANT IMPRESSION: 1. Old infarcts in the right occipital lobe and left basal ganglia. 2. Extensive nonspecific cerebral white matter disease, which likely represents chronic small vessel ischemic disease. 3. No aneurysm or significant intracranial arterial stenosis. 4. 0% stenosis of the proximal internal carotid arteries relative to normal dis ankur artery lumen diameters (NASCET criteria).
--- NOTE | ~2023-04-28 | CT_ITS ---
EXAMINATION: CT brain wo con DATE: 05/01/2023 11:31 INDICATION: Cerebrovascular accident TECHNIQUE: Computed tomography (CT) of the head was performed without intravenous contrast. The mA wa s adjusted according to patient size. Iterative reconstruction technique was employed. Exam dose: 60 5.33 mGy-cm total exam DLP. COMPARISON: 07/29/2021 CT brain FINDINGS: Examination is mildly limited by extensive streak artifact. Prominent bilateral vertebral artery calcification, basilar artery and prominent bilateral carotid si phon internal carotid artery calcifications. Chronic small right occipital infarct. Chronic anterior right thalamic and left basal ganglia lacunar infarcts. There is nonspecific diminished attenuation cerebral white matter, likely due to chronic small vessel ischemic changes. No intracranial mass lesion or hemorrhage, midline shift or mass effect is detected. No subdural or epidural hematoma. The mastoid air cells and included paranasal sinuses are normally developed and aerated. No fracture or bone destruction of the cranial vault. IMPRESSION: No acute intracranial finding or significant change since 07/29/2021 Reviewed, dictated and finalized at Location A. Reviewed, dictated and finalized at location L. ET ADJUSTER IMPRESSION: No acute intracranial finding or significant change since 2
--- NOTE | ~2023-04-28 | XR_ITS ---
MODIFIED ESOPHAGRAM HISTORY: Swallowing difficulties at bedside TECHNIQUE: Modified barium esophagram was performed on 05/04/2023. I administered fluoroscopy and perf ormed the exam with speech pathologist. Patient was seated for lateral fluoroscopic imaging for jasmin stion of thin liquids, pudding, solids and quantified amounts, followed by thin liquids in uncontroll ed amounts. This was recorded on tape. A single fluoroscopic spot image was also recorded. The DAP fo r this procedure was 1.001 Gycm2. The amount of fluoroscopy time used during this procedure was 1.7 m inutes. FINDINGS: Oral stage: Adequate function. Pharyngeal stage: Adequate function with small amount of vallecular residue. Cervical/esophageal stage: Adequate function. IMPRESSION: Patient tolerated regular consistency oral feedings in the upright position. Please raheem elate with speech pathologist findings and specific feeding recommendations. Reviewed, dictated and finalized at location A. CIATE MERCHANDISER IMPRESSION: Patient tolerated regular consistency oral feedings in the upright position. Please correlate with speech pathologist findings and specific feedi ng recommendations.
--- NOTE | ~2023-04-28 | CT_ITS ---
EXAMINATION: CT abdomen pelvis wo con DATE: 04/28/2023 22:16 INDICATION: Cellulitis to groin. TECHNIQUE: Computed tomography (CT) of the abdomen and pelvis was performed without intravenous contr ast. Automated exposure control and iterative reconstruction technique were employed. The dose-length product was 1618.59 mGy-cm. COMPARISON: CT abdomen and pelvis 04/26/2023 FINDINGS: The visualized portions of the lung bases demonstrate mild atelectasis. No pleural effusion . Cardiomegaly is noted. No pericardial effusion. There are coronary artery calcifications. There are widespread arterial calcifications. The liver and spleen are normal. There are gallstones in the gal lbladder, which is normal in size. The pancreas, adrenal glands, and kidneys are normal. There are no dilated loops of bowel. There is an umbilical hernia containing fat. There is diverticulosis of the colon without evidence of diverticulitis. The appendix is normal. There is subcutaneous edema and ski n thickening in anterior abdominal wall. There are no pathologically enlarged lymph nodes. There is n o free intraperitoneal fluid. There is mild aortocaval and right common iliac lymphadenopathy, likely reactive. There is severe thoracic and lumbar spondylosis. IMPRESSION: 1. Subcutaneous fat stranding and skin thickening in anterior abdominal wall, consistent with edema v ersus inflammation. No abscess. 2. Mild aortocaval and right common iliac lymphadenopathy, likely reactive. 3. Umbilical hernia containing fat. Reviewed, dictated and finalized at location A. OGIC TECHNICIAN IMPRESSION: 1. Subcutaneous fat stranding and skin thickening in anterior abdominal wall, c onsistent with edema versus inflammation. No abscess. 2. Mild aortocaval and right common iliac lymphadenopathy, likely reactive. 3. Umbilical hernia containing fat.
--- NOTE | ~2023-04-28 | MR_ITS ---
EXAMINATION: MR brain/brain stem wo/w con DATE: 05/01/2023 16:38 INDICATION: Stroke TECHNIQUE: Magnetic resonance imaging (MRI) of the brain and brainstem was performed without and with 20 mL Multihance intravenous contrast. Sequences included sagittal and axial T1-weighted SE, axial d iffusion-weighted FS SE, axial T2*-weighted GRE, axial T2-weighted FLAIR, and axial T2-weighted FSE. Postcontrast axial and coronal T1-weighted SE was obtained. Apparent diffusion coefficient (ADC) maps were created. COMPARISON: Head CT dated 05/01/2023 FINDINGS: Evaluation mildly limited by motion artifact on multiple sequences. Small region of encephalomalacia consistent with chronic infarct at the right occipital lobe. Small old lacunar infarct versus promine nt perivascular space at the inferior aspect of the bilateral basal ganglia. There are no areas of re stricted diffusion to suggest acute infarction. No intracranial hemorrhage or abnormal intracranial m ass lesion. There are scattered areas of nonspecific increased T2-weighted signal intensity in the ce rebral and pontine white matter, predominantly involving the deep and periventricular white matter. T here are no intraparenchymal signal abnormalities seen on the other pulse sequences. The ventricles a re symmetric and normal in size. There are no abnormal extra-axial fluid collections. Flow voids are seen in the cerebral arteries on the T2-weighted sequences consistent with their expected patency. Ch anges of bilateral intraocular lens replacement. Visualized orbits and soft tissues are unremarkable . There are no areas of abnormal enhancement on the post contrast images although sensitivity for sma ll enhancing lesions is significantly limited by the motion artifact. IMPRESSION: 1. No acute intracranial process or evident abnormally enhancing lesions although sensitivity for sma ll enhancing lesions is decreased by motion artifact. 2. Small old infarct at the right parietal lobe additional small old lacunar infarcts versus prominen t perivascular spaces at the inferior aspect of the bilateral basal ganglia. 3. Moderate scattered nonspecific periventricular predominant cerebral and pontine white matter T2 hy perintensity likely sequela of chronic small vessel ischemic disease. Reviewed, dictated and finalized at location A. W MACHINE REPAIRER IMPRESSION: 1. No acute intracranial process or evident abnormally enhancing lesions althou gh sensitivity for small enhancing lesions is decreased by motion artifact. 2. Small old infarct at the right parietal lobe additional small old lacunar in farcts versus prominent perivascular spaces at the inferior aspect of the bilat eral basal ganglia. 3. Moderate scattered nonspecific periventricular predominant cerebral and pont ine white matter T2 hyperintensity likely sequela of chronic small vessel ische stuart disease.
--- NOTE | ~2023-04-28 | US_ITS ---
EXAMINATION: US venous doppler [facility] LT DATE: 05/01/2023 15:03 INDICATION: Cerebrovascular accident. TECHNIQUE: Grayscale ultrasound images without and with compression and Doppler ultrasound images of the left upper extremity veins were obtained. COMPARISON: None. FINDINGS: The visualized portions of the left internal jugular vein, subclavian vein, axillary vein, brachial v eins, basilic vein, cephalic vein, radial vein, and ulnar vein are patent. IMPRESSION: 1. No deep venous thrombosis. Reviewed, dictated and finalized at location A. DCAST CORRESPONDENT
[2023-04-28 16:00] VITALS: BP 144/56; PULSE 79; RESP 18; TEMP 36.2; O2SAT 94
--- NOTE | 2023-04-28 20:32 | ECG_ITS ---
Measurements Intervals Bryant Rate: 72 P: 4 DE: 126 QRS: 9 QRSD: 153 T: 121 QT: 499 QTc: 546 Interpretive Statements SINUS RHYTHM LEFT BUNDLE BRANCH BLOCK [120+ ms QRS DURATION, 80+ ms Q/S IN V1/V2, 85+ ms R IN I/aVL/V5/V6] ABNORMAL ECG COMPARED TO ECG 02/27/2023 14:20:16 NO SIGNIFICANT CHANGES Electronically Signed On 04-29-2023 8:19:30 CORNER BRACE BLOCK MACHINE OPERATOR by Rusty Friend M.D.
--- NOTE | 2023-04-28 20:32 | ED.SKABFB ---
HPI - Skin/Abscess/Foreign Bdy General Chief complaint: Skin/Abscess/Foreign Body Stated complaint: SKIN IRRITATION IN HER GROIN Time Seen by Provider: 04/28/23 20:08 History of Present Illness HPI narrative: 73-year-old female with history of hypertension, ESR on hemodialysis, right BKA, diabetes reports for evaluation for a painful red rash to her groin for the past 4 days. Patient seen in the ER 2 days ago and was felt that her rash was secondary to Suzy. She received fluconazole and topical clotrimazole without improvement. Patient is on a Sunday, , Sunday dialysis schedule and she has not been since this past Sunday because she does not feel well. She states she makes a small amount of urine wears a depends for incontinence. Denies dysuria or hematuria, urinary frequency urgency, nausea vomiting, fever, abdominal pain, chest pain or shortness of breath. Related Data Home Medications Medication Instructions Recorded Confirmed bupropion HCl 150 mg tablet,12 hr 50 mg PO DAILY 05/30/19 03/27/23 sustained-release (Wellbutrin SR) atorvastatin 40 mg tablet 20 mg PO DAILY 09/07/20 03/27/23 allopurinol 100 mg tablet 100 mg PO DAILY 10/21/20 03/27/23 carvedilol 25 mg tablet 25 mg PO BID 10/21/20 03/27/23 blood-glucose meter,continuous 10/27/22 03/27/23 (Dexcom G6 Silk Spreader) blood-glucose sensor (Dexcom G6 10/27/22 03/27/23 Sensor device) calcium acetate(phosphat bind) 667 667 mg PO TIDWMEAL 03/27/23 03/27/23 mg capsule insulin degludec 200 unit/mL (3 10 unit subcut HS 03/27/23 03/27/23 mL) subcutaneous pen (Tresiba FlexTouch U-200 insulin) nystatin 100,000 unit/gram topical 1 applic topical BID 03/27/23 03/27/23 powder pantoprazole 40 mg tablet,delayed 40 mg PO DAILY 03/27/23 03/27/23 release Allergies Allergy/AdvReac Type Severity Reaction Status Date / Time fentanyl Allergy Hives Verified 04/26/23 09:49 adhesive tape AdvReac Itching Verified 03/29/23 14:55 Review of Systems Review of Systems: CONSTITUTIONAL: Denies fever, chills, or sweats. EYES: Denies visual changes, redness, or discharge. ENT: Denies rhinorrhea, congestion, sore throat, or otalgia. CARDIOVASCULAR: Denies chest pain, palpitations, or edema. RESPIRATORY: Denies cough or dyspnea. GASTROINTESTINAL: Denies abdominal pain, nausea, vomiting, or diarrhea. GENITOURINARY: Denies dysuria or hematuria. SKIN: See HPI MUSCULOSKELETAL: Denies back pain, joint pain, or myalgia. NEUROLOGIC: Denies headache, numbness, or weakness. PSYCHIATRIC: Denies anxiety or depression. [facility] Past Medical History Medical History Anxiety and depression Arthritis Benign thyroid cyst Evaluated by ultrasound a couple of years ago per patient report. Cerebrovascular accident Due to embolic event following a shoulder fracture 2016 with chronic mild left-sided weakness. Chronic venous stasis dermatitis of both lower extremities Contusion of ankle, left Diabetic gastroparesis Diabetic neuropathy Diabetic retinopathy of both eyes End-stage renal disease on hemodialysis Previously on peritoneal dialysis. Gastroesophageal reflux disease Gout Grade II diastolic dysfunction Noted on echo on 07/04/2019. EF 55-60%. Hyperlipidemia Hypertension Infarction of liver (07/07/19) Insulin dependent type 2 diabetes mellitus A1c was 8.9% on 09/08/2020. 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 Morbid obesity Osteomyelitis of right foot Osteoporosis Peripheral arterial disease (Unknown) Retinal detachment Shingles Splenic infarct (07/07/19) Venous stasis dermatitis of both lower extremities Surgical History Surgical History History of bilateral cataract extraction (2009) History of total hysterectomy wit
[2023-04-28] MEDS: MORPHINE SULFATE (*CRX) 2 MG/ML INJ IV PUSH (21:07)
[2023-04-28 21:23] LABS: Basophils Absolute Auto 0.1 K/mm3 (0.0-0.1); Basophils Percent Auto 0.6 % (0.2-1.2); Eosinophils Absolute Auto 0.2 K/mm3 (0-0.3); Eosinophils Percent Auto 1.6 % (0-4.4); Hematocrit 38.5 % (37.0-47.0); Hemoglobin 12.1 g/dL (12.0-15.0); Immature Granulocyte Absolute 0.04 K/mm3 (0.00-0.031); Immature Granulocyte Percent A 0.4 % (0-0.5); Lymphocytes Absolute Auto 0.76 K/mm3 (0.9-3.2); Lymphocytes Percent Auto 7.2 % (18.3-44.2); Mean Corpuscular HGB Conc 31.4 g/dl (32-36); Mean Corpuscular Volume 101.9 fl (80-100); Mean Platelet Volume 11.5 fl (7.4-10.4); Monocytes Absolute Auto 0.6 K/mm3 (0.1-0.6); Monocytes Percent Auto 5.8 % (2.6-8.5); Neutrophils Absolute Auto 8.9 K/mm3 (1.3-6.7); Neutrophils Percent Auto 84.4 % (45.5-73.1); Platelet Count Result 227 k/mm3 (150-375); Red Blood Count 3.78 M/mm3 (4.2-5.4); Red Cell Distribution Width 16.3 % (11.5-14.5); White Blood Count 10.5 K/mm3 (4.5-10.0)
[2023-04-28 21:33] LABS: Lactic Acid Reflex 1.6 mmol/L (0.7-2.0)
[2023-04-28 21:43] LABS: Alanine Aminotransferase 24 U/L (6-35); Albumin Level 3.5 g/dL (3.5-5.1); Alkaline Phosphatase 206 U/L (38-126); Anion Gap 12 mmol/L (8-16); Aspartate Amino Transferase 31 U/L (14-36); Bilirubin,Total 1.9 mg/dL (0.2-1.3); Blood Urea Nitrogen 64 mg/dL (7-17); Calcium 7.5 mg/dL (8.4-10.2); Carbon Dioxide 28 mmol/L (22-30); Chloride 93 mmol/L (98-107); Estimated CRCL calculation 5 ml/min; Estimated Glomerular Filt Rate 4; Glucose 127 mg/dL (65-110); Magnesium 2.2 mg/dL (1.6-2.3); Phosphorus 6.9 mg/dL (2.5-4.5); Potassium 4.7 mmol/L (3.4-5.0); Sodium 133 mmol/L (137-145)
[2023-04-28 21:50] LABS: Erythrocyte Sedimentation Rate 38 mm/hr (0-20)
[2023-04-28 22:10] LABS: CRP 11.4 mg/dL (<1.0)
[2023-04-28 23:22] VITALS: PULSE 76; RESP 15; O2SAT 97
[2023-04-28 23:33] LABS: Appearance Urine Turbid (Clear); Bacteria Urine 1+ /hpf; Bilirubin Urine Negative (Negative); Blood Urine 2+ (Negative); Color Urine Dark Yellow (Yellow); Glucose Urine UA Negative (Negative); Ketones Urine Negative (Negative); Leukocyte Esterase Ur 3+ LEU/UL (Negative); Need Manual Microscopic Reviewed; Nitrate Urine Negative (Negative); Non Pathogenic Casts 0-2; Protein Urine 3+ mg/dL (Negative); Specific Grav Ur 1.014 (1.001-1.035); Squamous Epithelial Cell Urine Few /hpf (Few); Transitional Epi Cells Urine Present /hpf (None Seen); WBC Clumps Urine Present /HPF; WBC Urine >100 /hpf
[2023-04-28 23:34] LABS: Add Urine Microscopic? YES
[2023-04-29] VITALS (7 sets, daily range): BP systolic 102–136; BP diastolic 42–74; PULSE 67–80; RESP 15–18; TEMP 36.5–36.8; O2SAT 95–99; BMI 44.0
--- NOTE | 2023-04-29 01:31 | PM.IMHP ---
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 Patient presents to the emergency room with complaints of abdominal wall redness fall although yosef rash redness swelling and tenderness of 2 weeks duration. patient denies any fevers, rigors, chills, nausea, vomiting has had generalized weakness has been unable to leave the house and has [facility] 2 dialysis treatments. A chemistry panel was significant for BUN 61 creatinine of 10. Preliminary workup was significant for CT of abdomen and pelvis was reported as: EXAMINATION: CT abdomen pelvis wo con DATE: 04/26/2023 11:34 INDICATION: Skin infection. Assess for deep space infection TECHNIQUE: Computed tomography (CT) of the abdomen and pelvis was performed without intravenous contrast. Automated exposure control and iterative reconstruction technique were employed. The dose-length product was 1544.98 mGy-cm. COMPARISON: 04/06/2023 FINDINGS: Discoid atelectasis in the left lower lobe and lingula. Cardiomegaly. Atherosclerotic coronary artery calcific lesion. No pericardial or pleural effusion. There is small amount of high attenuation material either sludge or gallstones the dependent aspect of the otherwise normal-appearing gallbladder. Liver, spleen, pancreas, bilateral adrenal glands and kidneys are normal. There is calcified atherosclerosis of the aorta and many of the other arteries. Moderate-sized fat-containing umbilical hernia. There are few sigmoid diverticula without adjacent inflammatory stranding to suggest diverticulitis. Small bowel and appendix are normal. Bladder is normal. The uterus is not identified and has likely been surgically resected. No free intraperitoneal gas or fluid. There is skin thickening and subcutaneous stranding of the panicula at the anterior pelvis. Additional small focus of subcutaneous stranding slightly to the left and inferior to the coccyx. No associated soft tissue gas or abscess. No evident stranding deep to the superficial perineal fascia. Severe lumbar spondylosis. IMPRESSION: 1. Skin thickening and subcutaneous stranding at the pedicular the anterior pelvis which can be seen with cellulitis with no evident abscess. 2. Additional small focus of nonspecific stranding in the subcutaneous tissues slightly to the left and inferior of the coccyx which could certainly represent cellulitis but also without evident associated abscess. 3. Sludge versus gallstones in the otherwise normal gallbladder. 4. Moderate fat-containing umbilical hernia. 5. Cardiomegaly. Review of Systems Review of Systems: abdominal wall fall discharge redness swelling tenderness Constitutional: Constitutional: Reports fatigue, Reports lethargy, Reports malaise and Reports weakness Eyes: Eyes: Denies change in vision ENT: Denies dysphagia and Denies odynophagia Cardiovascular: Cardiovascular: Denies chest pain, Denies radiating jaw, neck or arm pain and Denies palpitations Respiratory: Respiratory: Denies cough Gastrointestinal: Gastrointestinal: Denies diarrhea, Denies nausea and Denies vomiting Genitourinary: Genitourinary: Denies dysuria Musculoskeletal: Musculoskeletal: Reports muscle weakness Integumentary/Breasts: Skin/Breast: Reports erythema, Reports rash, Reports skin swelling, Reports skin ulcer and Reports other ( lower abdominal wall and skin fall redness fall all other discharge ) Neurologic: Denies focal weakness and Denies Sensory deficit (Neuro) Psychiatric: Psychiatric: Reports no additional psychiatric complaints and Repor
[2023-04-29] MEDS: VANCOMYCIN 1,750 MG/NS 500 ML 1,750 MG/500 ML BAG 250 MG IVPB (02:07)
[2023-04-29] MEDS: MORPHINE SULFATE (*CRX) 2 MG/ML INJ IV PUSH ×4 (02:07→09:20)
--- NOTE | 2023-04-29 04:00 | ADMGEN ---
This patient, Kelley Rodriguez, was admitted to Medical Room 347-. Patient/family oriented to hospital policies and general routines including ID bracelet, bed and alarms, visiting hours, pain management, procedures, bathroom and other care routines, personal items, smoking policy, room service/diet, and visiting hours. Information on how to activate the Rapid Response Team has been discussed. Patient/Family are encouraged to report perceived risks to care and to ask questions if they do not understand what they are told or what they should do.
--- NOTE | 2023-04-29 05:02 | PC.NURSE ---
Patient states that ice pack was successful at decreased her abdominal pain. Ice pack was given to this patient.
[2023-04-29] MEDS: carvediloL 25 MG TABLET PO (09:23)
[2023-04-29] MEDS: TOLNAFTATE 1% POWDER 45 GM BTL 1 APPLIC TOPICAL ×2 (09:25→21:04)
[2023-04-29] MEDS: CALCIUM ACETATE 667 MG TABLET PO ×3 (09:26→17:24)
[2023-04-29] MEDS: buPROPion HCL SR (12 HR) 150 MG TAB PO (09:26)
[2023-04-29] MEDS: APIXABAN 2.5 MG TABLET PO ×2 (09:26→17:24)
[2023-04-29] MEDS: BETAMETHASONE/CLOTRIMAZOLE CR 15 GM TUBE 1 APPLIC TOPICAL ×2 (09:26→21:04)
[2023-04-29] MEDS: allopurinoL 100 MG TABLET PO (09:27)
[2023-04-29] MEDS: PANTOPRAZOLE 40 MG TABLET PO (09:27)
[2023-04-29] MEDS: ATORVASTATIN 20 MG TABLET PO (09:27)
[2023-04-29] MEDS: INSULIN ASPART (*BKC) 100 UNITS/ML 10 UNITS SUB-Q (09:53)
--- NOTE | 2023-04-29 12:45 | PM.CNNEP ---
Assessment and Plan Assessment and plan (1) End-stage renal disease (ESRD): Onset Date: Unknown Code(s): N18.6 - End stage renal disease Status: Chronic Assessment and Plan: HD tomorrow (since she missed her last 2 outpatient dialysis treatments) eventually transition/resume T/T/S outpatient dialysis schedule next week follow electrolytes, volume status, and clearance (2) Panniculitis: Code(s): M79.3 - Panniculitis, unspecified Status: Acute Assessment and Plan: as evidence by exam findings follow culture data on antibiotics local wound care (3) Urinary tract infection: Code(s): N39.0 - Urinary tract infection, site not specified Status: Acute Assessment and Plan: admission UA highly suggestive follow up on urine culture results on antibiotics (4) Hypertension: Code(s): I10 - Essential (primary) hypertension Status: Chronic Assessment and Plan: reasonably controlled follow trend of hemodynamics (5) Anemia: Code(s): D64.9 - Anemia, unspecified Status: Chronic Assessment and Plan: H/H supratherapeutic for a dialysis patient hold Epogen for now follow trend of H/H (6) Insulin dependent type 2 diabetes mellitus: Code(s): E11.9 - Type 2 diabetes mellitus without complications; 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 Thank you for allowing me to participate in the care this patient. History of Present Illness Reason for Consult Consult date: 04/29/23 Reason for consult: end stage renal disease Chief Complaint Chief complaint: Cellulitis History of Present Illness Narrative: The patient is a 72-year-old female with a past medical history as outlined below who presented to [facility] Emergency room yesterday with painful rash/skin in the area of her groin. The painful rash/skin in her groin area initially started about 4 days ago but seems to have progressively worsened in that time frame. She was actually seen here in the emergency room at [facility] a few days ago for this and it was thought that this rash was secondary to a fungal infection and she was prescribed antifungal medications and creams for treatment of this issue. Unfortunately, despite use of these medications, the painful rash/ skin area continues to worsen. She presented back to [facility] Emergency Room for re-evaluation of this issue. Workup and evaluation emergency room demonstrated the patient be hemodynamically stable and afebrile. Routine blood work demonstrated a mildly elevated white blood cell count in association with an elevated ESR and CRP. Her chemistry was consistent with her known history of end-stage renal disease without any critical electrolyte abnormalities. Her urinalysis was somewhat suggestive of a urinary tract infection as well. Her EKG did not show any signs of acute ischemia. Her lactic acid was normal at 1.6. A subsequent CT scan of the abdomen pelvis demonstrated cholelithiasis without evidence of acute cholecystitis as well as abdominal skin changes concerning for cellulitis but no overt abscess was noted. After appropriate cultures were obtained, she was started on IV antibiotic therapy and subsequently admitted to the hospital for further evaluation and therapy. Renal consultation was requested due to her end-stage renal disease. The patient normally dialyzes on a Sunday, , Sunday dialysis schedule at [facility]. Given the a for mention issues and problems with the rash and groin skin changes, she did not go to her outpatient dialysis treatments for the last 2 sessions. Surprisingly, despite missing her last 2 sessions of
[2023-04-29 12:46] LABS: Glucose Point of Care 56 mg/dl (65-105)
[2023-04-29] MEDS: DEXTROSE 50% 25 GM/50 ML SYRINGE IV PUSH ×2 (13:00→13:15)
[2023-04-29 13:18] LABS: Glucose Point of Care 41 mg/dl (65-105)
[2023-04-29 13:18] LABS: Glucose Point of Care 141 mg/dl (65-105)
--- NOTE | 2023-04-29 13:51 | P.PNIM_ITS ---
Progress Note: A&P Assessment and Plan (1) Panniculitis: Code(s): M79.3 - Panniculitis, unspecified Status: Acute Assessment and Plan: * Does not meet Sepsis criteria. * Visible on CT scan. * Consistent with elevated CRP and Sed Rate * Continue Vancomycin therapy * Tolnaftate powder and Betamethasone cream topically to affected areas topically. * Trend labs and VS. * Blood cultures x2 pending. * PRN pain meds. (2) ESRD on hemodialysis: Code(s): N18.6 - End stage renal disease; Z99.2 - Dependence on renal dialysis Status: Acute Assessment and Plan: * HD, consult Nephrology for ordering and management. * Pt has missed two recent sittings. 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 * SSI Low dose * Hold home dose of 10 units with meals in the setting that pt had a hypoglycemic episode today with glucose in the 40s. (4) Urinary tract infection: Code(s): N39.0 - Urinary tract infection, site not specified Status: Acute Assessment and Plan: * As evidenced by urine appearing turbid, with 3+ Protein, 2+ Blood, 3+ Leuks, >100 WBC's with clumps present, and only a few epithelials. * Will add Rocephin to pt's abx regimen * Urine culture is pending (5) Itching: Code(s): L29.9 - Pruritus, unspecified Status: Acute Assessment and Plan: * Pt is itching on her back from laying against the sheets. * Benadryl is ordered for IV dosing. * Triamcinolone cream is ordered for topical application. (6) Status post below knee amputation of right lower extremity: Onset Date: 12/2020 Code(s): Z89.511 - Acquired absence of right leg below knee Status: Chronic Assessment and Plan: * Noted BKA on physical exam (7) Hypertension: Code(s): I10 - Essential (primary) hypertension Status: Chronic Assessment and Plan: * Continue Carvedilol 25 mg BID and monitor BP's. * Heart healthy diet (8) Grade II diastolic dysfunction: Code(s): I51.9 - Heart disease, unspecified Status: Chronic Assessment and Plan: * Currently appears euvolemic. * Last ECHO was 06/2019 that showed an EF of 55-60% and pulmonary HTN. * If any acute s/s of decompensation during this admission, low threshold for obtaining an ECHO during hospitalization. Time Spent With Patient Time with patient: Greater than 35 minutes Subjective Date/time seen: 04/29/23 13:51 Interval history: This pt was examined at the bedside this morning in interval assessment since being admitted with panniculitis and Cellulitis. She currently has blood and urine cultures pending. She reports also missing two dialysis sessions due to being too weak to leave home. Currently she complains of itching to her back and is not sure what is making it itch. She denies any CP, dyspnea, N/V/D. She does endorse pain to the paniculus R>L along with the itching and states that the Morphine that is ordered is not helping her pain. Review of Systems Review of Systems: All systems reviewed & are unremarkable except as noted in HPI and below Exam Narrative: CONSTITUTIONAL: Elderly female pt sitting up in bed at this time appearing agitated and complaining of her back itching and her pannus hurting. HE
--- NOTE | 2023-04-29 13:51 | PM.IMPN ---
Progress Note: A&P Assessment and Plan (1) Panniculitis: Code(s): M79.3 - Panniculitis, unspecified Status: Acute Assessment and Plan: Does not meet Sepsis criteria. Visible on CT scan. Consistent with elevated CRP and Sed Rate Continue Vancomycin therapy Tolnaftate powder and Betamethasone cream topically to affected areas topically. Trend labs and VS. Blood cultures x2 pending. PRN pain meds. (2) ESRD on hemodialysis: Code(s): N18.6 - End stage renal disease; Z99.2 - Dependence on renal dialysis Status: Acute Assessment and Plan: HD, consult Nephrology for ordering and management. Pt has missed two recent sittings. (3) Insulin dependent type 2 diabetes mellitus: Code(s): E11.9 - Type 2 diabetes mellitus without complications; Z79.4 - group home (current) use of insulin Status: Chronic Assessment and Plan: Heart Healthy Diet Hypoglycemic protocol Glucose checks AC and HS Check A1C in AM. SSI Low dose Hold home dose of 10 units with meals in the setting that pt had a hypoglycemic episode today with glucose in the 40s. (4) Urinary tract infection: Code(s): N39.0 - Urinary tract infection, site not specified Status: Acute Assessment and Plan: As evidenced by urine appearing turbid, with 3+ Protein, 2+ Blood, 3+ Leuks, >100 WBC's with clumps present, and only a few epithelials. Will add Rocephin to pt's abx regimen Urine culture is pending (5) Itching: Code(s): L29.9 - Pruritus, unspecified Status: Acute Assessment and Plan: Pt is itching on her back from laying against the sheets. Benadryl is ordered for IV dosing. Triamcinolone cream is ordered for topical application. (6) Status post below knee amputation of right lower extremity: Onset Date: 12/2020 Code(s): Z89.511 - Acquired absence of right leg below knee Status: Chronic Assessment and Plan: Noted BKA on physical exam (7) Hypertension: Code(s): I10 - Essential (primary) hypertension Status: Chronic Assessment and Plan: Continue Carvedilol 25 mg BID and monitor BP's. Heart healthy diet (8) Grade II diastolic dysfunction: Code(s): I51.9 - Heart disease, unspecified Status: Chronic Assessment and Plan: Currently appears euvolemic. Last ECHO was 06/2019 that showed an EF of 55-60% and pulmonary HTN. If any acute s/s of decompensation during this admission, low threshold for obtaining an ECHO during hospitalization. Time Spent With Patient Time with patient: Greater than 35 minutes Subjective Date/time seen: 04/29/23 13:51 Interval history: This pt was examined at the bedside this morning in interval assessment since being admitted with panniculitis and Cellulitis. She currently has blood and urine cultures pending. She reports also missing two dialysis sessions due to being too weak to leave home. Currently she complains of itching to her back and is not sure what is making it itch. She denies any CP, dyspnea, N/V/D. She does endorse pain to the paniculus R>L along with the itching and states that the Morphine that is ordered is not helping her pain. Review of Systems Review of Systems: All systems reviewed & are unremarkable except as noted in HPI and below Exam Narrative: CONSTITUTIONAL: Elderly female pt sitting up in bed at this time appearing agitated and complaining of her back itching and her pannus hurting. HEENT: Head is atraumatic and normocephalic with dry mucous membranes and patent oropharynx. EYES: PERRLA and EOM's intact. Sclera is non-icteric and conjunctiva is without injecture or drainage. NECK: FROM, supple manner, and no LN or JVD RESPIRATORY: CTAB in all gleason posteriorly. CARDIO: RRR, S1 and S2 present, no S3, S4, m,r,g,h or displacement of PMI GI: Soft, NT with exception of where panniculits is, BS present x4 quads. SKIN: Entire Panniculus erythe
[2023-04-29 16:59] LABS: Glucose Point of Care 112 mg/dl (65-105)
[2023-04-29] MEDS: ONDANSETRON INJ 4 MG/2 ML VIAL IV PUSH (18:19)
[2023-04-29] MEDS: diphenhydrAMINE HCl INJ 50 MG/ML VIAL IV PUSH (18:19)
[2023-04-29] MEDS: traZODone HCL 50 MG TABLET 100 MG PO (21:03)
[2023-04-29] MEDS: QUEtiapine FUMARATE 25 MG TABLET PO (21:03)
[2023-04-29] MEDS: LORazepam INJ (*CRX) 2 MG/ML VIAL 0.5 MG IV PUSH (21:04)
[2023-04-29] MEDS: TRIAMCINOLONE ACET 0.1% CREAM 80 GM TUBE 1 APPLIC TOPICAL (21:05)
[2023-04-29 21:42] LABS: Glucose Point of Care 159 mg/dl (65-105)
[2023-04-30] VITALS (24 sets, daily range): BP systolic 112–158; BP diastolic 48–70; PULSE 59–72; RESP 16–20; TEMP 36.2–37; O2SAT 93–98
[2023-04-30 05:53] LABS: Basophils Absolute Auto 0.1 K/mm3 (0.0-0.1); Basophils Percent Auto 0.6 % (0.2-1.2); Eosinophils Absolute Auto 0.2 K/mm3 (0-0.3); Eosinophils Percent Auto 2.4 % (0-4.4); Hematocrit 38.5 % (37.0-47.0); Hemoglobin 12.2 g/dL (12.0-15.0); Immature Granulocyte Absolute 0.05 K/mm3 (0.00-0.031); Immature Granulocyte Percent A 0.6 % (0-0.5); Lymphocytes Absolute Auto 0.92 K/mm3 (0.9-3.2); Lymphocytes Percent Auto 11.7 % (18.3-44.2); Mean Corpuscular HGB Conc 31.7 g/dl (32-36); Mean Corpuscular Hemoglobin 32.3 pg (26-34); Mean Corpuscular Volume 101.9 fl (80-100); Monocytes Absolute Auto 0.5 K/mm3 (0.1-0.6); Monocytes Percent Auto 6.2 % (2.6-8.5); Neutrophils Absolute Auto 6.2 K/mm3 (1.3-6.7); Neutrophils Percent Auto 78.5 % (45.5-73.1); Platelet Count Result 233 k/mm3 (150-375); Red Blood Count 3.78 M/mm3 (4.2-5.4); Red Cell Distribution Width 16.6 % (11.5-14.5); White Blood Count 7.9 K/mm3 (4.5-10.0)
[2023-04-30 06:09] LABS: Alanine Aminotransferase 18 U/L (6-35); Albumin Level 3.1 g/dL (3.5-5.1); Alkaline Phosphatase 179 U/L (38-126); Anion Gap 10 mmol/L (8-16); Aspartate Amino Transferase 24 U/L (14-36); Bilirubin,Total 1.5 mg/dL (0.2-1.3); Blood Urea Nitrogen 74 mg/dL (7-17); Calcium 7.7 mg/dL (8.4-10.2); Carbon Dioxide 30 mmol/L (22-30); Chloride 93 mmol/L (98-107); Estimated CRCL calculation 5 ml/min; Estimated Glomerular Filt Rate 3; Glucose 109 mg/dL (65-110); Magnesium 2.4 mg/dL (1.6-2.3); Potassium 4.9 mmol/L (3.4-5.0); Sodium 133 mmol/L (137-145)
[2023-04-30 06:12] LABS: Vancomycin Random 13.6 ug/mL (10-20)
[2023-04-30 06:38] LABS: Hepatitis B Surface Antigen Negative (Negative)
[2023-04-30 06:57] LABS: Hepatitis B Surface Anti Res Positive
[2023-04-30] MEDS: ATORVASTATIN 20 MG TABLET PO (08:07)
[2023-04-30] MEDS: PANTOPRAZOLE 40 MG TABLET PO (08:07)
[2023-04-30] MEDS: APIXABAN 2.5 MG TABLET PO ×2 (08:07→18:27)
[2023-04-30] MEDS: buPROPion HCL SR (12 HR) 150 MG TAB PO (08:07)
[2023-04-30] MEDS: carvediloL 25 MG TABLET PO ×2 (08:07→18:27)
[2023-04-30] MEDS: allopurinoL 100 MG TABLET PO (08:07)
[2023-04-30] MEDS: CALCIUM ACETATE 667 MG TABLET PO ×2 (08:07→18:27)
[2023-04-30] MEDS: BETAMETHASONE/CLOTRIMAZOLE CR 15 GM TUBE 1 APPLIC TOPICAL ×2 (08:10→22:30)
[2023-04-30] MEDS: TOLNAFTATE 1% POWDER 45 GM BTL 1 APPLIC TOPICAL ×2 (08:10→22:30)
[2023-04-30] MEDS: TRIAMCINOLONE ACET 0.1% CREAM 80 GM TUBE 1 APPLIC TOPICAL ×2 (08:10→22:30)
[2023-04-30 08:44] LABS: Glucose Point of Care 119 mg/dl (65-105)
--- NOTE | 2023-04-30 09:34 | P.PNIM_ITS ---
Progress Note: A&P Assessment and Plan (1) Panniculitis: Code(s): M79.3 - Panniculitis, unspecified Status: Acute Assessment and Plan: 04/29/23: * Does not meet Sepsis criteria. * Visible on CT scan. * Consistent with elevated CRP and Sed Rate * Continue Vancomycin therapy * Tolnaftate powder and Betamethasone cream topically to affected areas topically. * Trend labs and VS. * Blood cultures x2 pending. * PRN pain meds. 04/30/23: * Blood cultures showing no growth to date * Continue with current treatment plan (2) ESRD on hemodialysis: Code(s): N18.6 - End stage renal disease; Z99.2 - Dependence on renal dialysis Status: Acute Assessment and Plan: 04/29/23: * HD, consult Nephrology for ordering and management. * Pt has missed two recent sittings. 04/30/23: * HD today * Nephrology following (3) Insulin dependent type 2 diabetes mellitus: Code(s): E11.9 - Type 2 diabetes mellitus without complications; Z79.4 - [facility] (current) use of insulin Status: Chronic Assessment and Plan: 04/29/23: * Heart Healthy Diet * Hypoglycemic protocol * Glucose checks AC and HS * Check A1C in AM. * SSI Low dose * Hold home dose of 10 units with meals in the setting that pt had a hypoglycemic episode today with glucose in the 40s 04/30/23: * BG ranging 109-174 * Will check Hgb A1C in the morning. * Continue with current treatment plan (4) Urinary tract infection: Code(s): N39.0 - Urinary tract infection, site not specified Status: Acute Assessment and Plan: 04/29/23: * As evidenced by urine appearing turbid, with 3+ Protein, 2+ Blood, 3+ Leuks, >100 WBC's with clumps present, and only a few epithelials. * Will add Rocephin to pt's abx regimen * Urine culture is pending 04/30/23: * UC showing Klebsiella pneumoniae, on preliminary * Continue Rocephin * Will await final culture results (5) Itching: Code(s): L29.9 - Pruritus, unspecified Status: Acute Assessment and Plan: 04/29/23: * Pt is itching on her back from laying against the sheets. * Benadryl is ordered for IV dosing. * Triamcinolone cream is ordered for topical application. 04/30/23: * Continue with current treatment plan (6) Status post below knee amputation of right lower extremity: Onset Date: 12/2020 Code(s): Z89.511 - Acquired absence of right leg below knee Status: Chronic Assessment and Plan: 04/29/23: * Noted BKA on physical exam 04/30/23: * of note, no change (7) Hypertension: Code(s): I10 - Essential (primary) hypertension Status: Chronic Assessment and Plan: 04/29/23: * Continue Carvedilol 25 mg BID and monitor BP's. * Heart healthy diet 04/30/23: * Continue with current treatment plan (8) Grade II diastolic dysfunction: Code(s): I51.9 - Heart disease, unspecified Status: Chronic Assessment and Plan: 04/29/23: * Currently appears euvolemic. * Last ECHO was 06/2019 that showed an EF of 55-60% and pulmonary HTN. * If any acute s/s of decompensation during this admission, low threshold for obtaining an ECHO during hospitalization. 04/30/23: * Continue with current treatment plan Time Spent With Patient Time with patient: Greater than 35 minutes Subjective Date/time seen: 04/30/23 09:34 Interval history: 04/28/23:(Copy forward from chart) This is a 73-year-old female with past medical hi
--- NOTE | 2023-04-30 09:34 | PM.IMPN ---
Progress Note: A&P Assessment and Plan (1) Panniculitis: Code(s): M79.3 - Panniculitis, unspecified Status: Acute Assessment and Plan: 04/29/23: Does not meet Sepsis criteria. Visible on CT scan. Consistent with elevated CRP and Sed Rate Continue Vancomycin therapy Tolnaftate powder and Betamethasone cream topically to affected areas topically. Trend labs and VS. Blood cultures x2 pending. PRN pain meds. 04/30/23: Blood cultures showing no growth to date Continue with current treatment plan (2) ESRD on hemodialysis: Code(s): N18.6 - End stage renal disease; Z99.2 - Dependence on renal dialysis Status: Acute Assessment and Plan: 04/29/23: HD, consult Nephrology for ordering and management. Pt has missed two recent sittings. 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 SSI Low dose Hold home dose of 10 units with meals in the setting that pt had a hypoglycemic episode today with glucose in the 40s 04/30/23: BG ranging 109-174 Will check Hgb A1C in the morning. Continue with current treatment plan (4) Urinary tract infection: Code(s): N39.0 - Urinary tract infection, site not specified Status: Acute Assessment and Plan: 04/29/23: As evidenced by urine appearing turbid, with 3+ Protein, 2+ Blood, 3+ Leuks, >100 WBC's with clumps present, and only a few epithelials. Will add Rocephin to pt's abx regimen Urine culture is pending 04/30/23: UC showing Klebsiella pneumoniae, on preliminary Continue Rocephin Will await final culture results (5) Itching: Code(s): L29.9 - Pruritus, unspecified Status: Acute Assessment and Plan: 04/29/23: Pt is itching on her back from laying against the sheets. Benadryl is ordered for IV dosing. Triamcinolone cream is ordered for topical application. 04/30/23: Continue with current treatment plan (6) Status post below knee amputation of right lower extremity: Onset Date: 12/2020 Code(s): Z89.511 - Acquired absence of right leg below knee Status: Chronic Assessment and Plan: 04/29/23: Noted BKA on physical exam 04/30/23: of note, no change (7) Hypertension: Code(s): I10 - Essential (primary) hypertension Status: Chronic Assessment and Plan: 04/29/23: Continue Carvedilol 25 mg BID and monitor BP's. Heart healthy diet 04/30/23: Continue with current treatment plan (8) Grade II diastolic dysfunction: Code(s): I51.9 - Heart disease, unspecified Status: Chronic Assessment and Plan: 04/29/23: Currently appears euvolemic. Last ECHO was 06/2019 that showed an EF of 55-60% and pulmonary HTN. If any acute s/s of decompensation during this admission, low threshold for obtaining an ECHO during hospitalization. 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 Patient presents to the emergency room with complaints of abdominal wall redness fall although yosef rash redness swelling and tenderness of 2 weeks duration. patient denies any fevers, rigors, chills, nausea, v
[2023-04-30 12:01] LABS: Glucose Point of Care 174 mg/dl (65-105)
--- NOTE | 2023-04-30 15:15 | PM.PNNEP ---
Progress Note: A&P Assessment and Plan (1) End-stage renal disease (ESRD): Onset Date: Unknown Code(s): N18.6 - End stage renal disease Status: Chronic Assessment and Plan: HD today (since she missed her last 2 outpatient dialysis treatments) eventually transition/resume T/T/S outpatient dialysis schedule this week follow electrolytes, volume status, and clearance (2) Panniculitis: Code(s): M79.3 - Panniculitis, unspecified Status: Acute Assessment and Plan: as evidence by exam findings follow culture data on antibiotics local wound care (3) Urinary tract infection: Code(s): N39.0 - Urinary tract infection, site not specified Status: Acute Assessment and Plan: admission UA highly suggestive urine culture with Klebsiella on antibiotics (4) Hypertension: Code(s): I10 - Essential (primary) hypertension Status: Chronic Assessment and Plan: reasonably controlled follow trend of hemodynamics (5) Anemia: Code(s): D64.9 - Anemia, unspecified Status: Chronic Assessment and Plan: H/H supratherapeutic for a dialysis patient hold Epogen for now follow trend of H/H (6) Insulin dependent type 2 diabetes mellitus: Code(s): E11.9 - Type 2 diabetes mellitus without complications; Z79.4 - [facility] (current) use of insulin Status: Chronic Assessment and Plan: follow accu-cheks glycemic control per hospitalists Will continue to follow. Subjective Date/time seen: 04/30/23 15:15 Interval history: Follow-up for end stage renal disease on hemodialysis. Tolerating dialysis treatment at the time of my visit (seen on HD on 3:05PM); sleeping/resting comfortably when seen; no new issues or complaints voiced; no events overnight or earlier this morning. Exam Narrative: General: WD/WN female in NAD Heart: normal S1 and S2; no rub Lungs: clear to auscultation Abdomen: soft, nontender, nondistended, positive bowel sounds Extremities: no cyanosis or clubbing; no edema Skin: erythema and excoriations noted on pannus Objective Data Vital Signs Vital Signs: Vital Signs Temp Pulse Resp BP Pulse Ox O2 Del Method 04/30/23 15:15 67 139/68 04/30/23 15:00 60 134/63 04/30/23 14:45 66 136/70 04/30/23 14:30 66 136/61 04/30/23 14:15 63 112/62 04/30/23 14:13 63 112/62 04/30/23 14:00 97.3 F L 67 16 125/63 04/30/23 13:43 97.1 F L 59 L 18 124/55 L 95 04/30/23 10:46 94 Room Air 04/30/23 08:07 70 04/30/23 05:21 97.3 F L 68 18 113/48 L 93 04/29/23 20:00 Room Air 04/29/23 21:02 97.8 F 68 16 104/54 L 99 Intake/Output Intake/Output: Intake & Output 04/27/23 04/28/23 04/29/23 04/30/23 23:59 23:59 23:59 23:59 Intake Total 1100 680 Balance 1100 680 Meds/Results Medications: Active Medications Generic Name Dose Route Start Last Admin Trade Name Jitendra PRN Reason Stop Dose Admin Allopurinol 100 mg 04/29/23 09:00 04/30/23 08:07 Allopurinol 100 Mg Tablet PO 100 mg DAILY MICHELL Administration Apixaban 2.5 mg 04/29/23 09:00 04/30/23 08:07 Apixaban 2.5 Mg Tablet PO 2.5 mg BID MICHELL Administration Atorvastatin Calcium 20 mg 04/29/23 09:00 04/30/23 08:07 Atorvastatin 20 Mg Tablet PO 20 mg DAILY MICHELL Administration Bupropion HCl 150 mg 04/29/23 09:00 04/30/23 08:07 Bupropion Hcl Sr (12 Hr) 150 Mg Tab PO 150 mg DAILY MICHELL Administration Calcium Acetate 667 mg 04/29/23 08:00 04/30/23 13:31 Calcium Acetate 667 Mg Tablet PO Not Given TIDWM MICHELL Carvedilol 25 mg 04/29/23 09:00 04/30/23 08:07 Carvedilol 25 Mg Tablet PO 25 mg BID MICHELL Administration Clotrimazole 1 applic 04/29/23 09:00 04/30/23 08:10 Betamethasone/Clotrimazole Cr 15 Gm Tube TOPICAL 1 applic Q12HR MICHELL Administration Dextrose 12.5 gm 04/29/23
--- NOTE | 2023-04-30 15:15 | P.PNNP_ITS ---
Progress Note: A&P Assessment and Plan (1) End-stage renal disease (ESRD): Onset Date: Unknown Code(s): N18.6 - End stage renal disease Status: Chronic Assessment and Plan: * HD today (since she missed her last 2 outpatient dialysis treatments) * eventually transition/resume T/T/S outpatient dialysis schedule this week * follow electrolytes, volume status, and clearance (2) Panniculitis: Code(s): M79.3 - Panniculitis, unspecified Status: Acute Assessment and Plan: * as evidence by exam findings * follow culture data * on antibiotics * local wound care (3) Urinary tract infection: Code(s): N39.0 - Urinary tract infection, site not specified Status: Acute Assessment and Plan: * admission UA highly suggestive * urine culture with Klebsiella * on antibiotics (4) Hypertension: Code(s): I10 - Essential (primary) hypertension Status: Chronic Assessment and Plan: * reasonably controlled * follow trend of hemodynamics (5) Anemia: Code(s): D64.9 - Anemia, unspecified Status: Chronic Assessment and Plan: * H/H supratherapeutic for a dialysis patient * hold Epogen for now * follow trend of H/H (6) Insulin dependent type 2 diabetes mellitus: Code(s): E11.9 - Type 2 diabetes mellitus without complications; Z79.4 - intermission coordinator (current) use of insulin Status: Chronic Assessment and Plan: * follow accu-cheks * glycemic control per hospitalists Will continue to follow. Subjective Date/time seen: 04/30/23 15:15 Interval history: Follow-up for end stage renal disease on hemodialysis. Tolerating dialysis treatment at the time of my visit (seen on HD on 3:05PM); sleeping/resting comfortably when seen; no new issues or complaints voiced; no events overnight or earlier this morning. Exam Narrative: General: WD/WN female in NAD Heart: normal S1 and S2; no rub Lungs: clear to auscultation Abdomen: soft, nontender, nondistended, positive bowel sounds Extremities: no cyanosis or clubbing; no edema Skin: erythema and excoriations noted on pannus Objective Data Vital Signs Vital Signs: Vital Signs Temp Pulse Resp BP Pulse Ox O2 Del Method 04/30/23 15:15 67 139/68 04/30/23 15:00 60 134/63 02/12/24 14:45 66 136/70 04/30/23 14:30 66 136/61 04/30/23 14:15 63 112/62 04/30/23 14:13 63 112/62 04/30/23 14:00 97.3 F L 67 16 125/63 04/30/23 13:43 97.1 F L 59 L 18 124/55 L 95 04/30/23 10:46 94 Room Air 04/30/23 08:07 70 04/30/23 05:21 97.3 F L 68 18 113/48 L 93 04/29/23 20:00 Room Air 04/29/23 21:02 97.8 F 68 16 104/54 L 99 Intake/Output Intake/Output: Intake & Output 04/27/23 04/28/23 04/29/23 04/30/23 23:59 23:59 23:59 23:59 Intake Total 1100 680 Balance 1100 680 Meds/Results Medications: Active Medications Generic Name Dose Route Start Last Admin Trade Name Jitendra PRN Reason Stop Dose Admin Allopurinol 100 mg 04/29/23 09:00 04/30/23 08:07 Allopurinol 100 Mg Tablet PO 10
[2023-04-30] MEDS: VANCOMYCIN 1,250 MG/NS 250 ML 1,250 MG/250 ML BAG 166.67 MG IVPB (18:27)
[2023-04-30] MEDS: MUPIROCIN 2% OINT 22 GM TUBE 1 APPLIC TOPICAL (18:32)
[2023-04-30] MEDS: traZODone HCL 50 MG TABLET 100 MG PO (20:22)
[2023-04-30] MEDS: QUEtiapine FUMARATE 25 MG TABLET PO (20:23)
[2023-04-30] MEDS: LORazepam INJ (*CRX) 2 MG/ML VIAL 0.5 MG IV PUSH (20:23)
[2023-05-01] VITALS (8 sets, daily range): BP systolic 105–157; BP diastolic 49–64; PULSE 64–126; RESP 16–18; TEMP 36.1–36.6; O2SAT 90–97
[2023-05-01 07:10] LABS: Alanine Aminotransferase 18 U/L (6-35); Alkaline Phosphatase 173 U/L (38-126); Anion Gap 6 mmol/L (8-16); Aspartate Amino Transferase 22 U/L (14-36); Bilirubin,Total 1.3 mg/dL (0.2-1.3); Blood Urea Nitrogen 33 mg/dL (7-17); Calcium 8.2 mg/dL (8.4-10.2); Carbon Dioxide 31 mmol/L (22-30); Chloride 99 mmol/L (98-107); Estimated CRCL calculation 8 ml/min; Estimated Glomerular Filt Rate 6; Glucose 134 mg/dL (65-110); Magnesium 2.2 mg/dL (1.6-2.3); Potassium 4.3 mmol/L (3.4-5.0); Sodium 136 mmol/L (137-145)
[2023-05-01 07:20] LABS: Hemoglobin A1C 7.3 % (<5.7)
[2023-05-01 07:25] LABS: Vancomycin Random 21.2 ug/mL (10-20)
[2023-05-01 07:57] LABS: Glucose Point of Care 142 mg/dl (65-105)
[2023-05-01 08:21] LABS: Basophils Absolute Auto 0.1 K/mm3 (0.0-0.1); Basophils Percent Auto 0.6 % (0.2-1.2); Eosinophils Absolute Auto 0.2 K/mm3 (0-0.3); Eosinophils Percent Auto 2.3 % (0-4.4); Hematocrit 36.7 % (37.0-47.0); Hemoglobin 11.3 g/dL (12.0-15.0); Immature Granulocyte Absolute 0.03 K/mm3 (0.00-0.031); Immature Granulocyte Percent A 0.4 % (0-0.5); Lymphocytes Absolute Auto 0.74 K/mm3 (0.9-3.2); Lymphocytes Percent Auto 9.6 % (18.3-44.2); Mean Corpuscular HGB Conc 30.8 g/dl (32-36); Mean Platelet Volume 11.2 fl (7.4-10.4); Monocytes Absolute Auto 0.5 K/mm3 (0.1-0.6); Monocytes Percent Auto 6.1 % (2.6-8.5); Neutrophils Absolute Auto 6.3 K/mm3 (1.3-6.7); Platelet Count Result 216 k/mm3 (150-375); Red Blood Count 3.53 M/mm3 (4.2-5.4); Red Cell Distribution Width 16.7 % (11.5-14.5); White Blood Count 7.7 K/mm3 (4.5-10.0)
[2023-05-01] MEDS: carvediloL 25 MG TABLET PO ×2 (08:48→17:51)
[2023-05-01] MEDS: buPROPion HCL SR (12 HR) 150 MG TAB PO (08:48)
[2023-05-01] MEDS: allopurinoL 100 MG TABLET PO (08:48)
[2023-05-01] MEDS: CALCIUM ACETATE 667 MG TABLET PO ×2 (08:48→17:50)
[2023-05-01] MEDS: PANTOPRAZOLE 40 MG TABLET PO (08:48)
[2023-05-01] MEDS: MUPIROCIN 2% OINT 22 GM TUBE 1 APPLIC TOPICAL (08:51)
[2023-05-01] MEDS: BETAMETHASONE/CLOTRIMAZOLE CR 15 GM TUBE 1 APPLIC TOPICAL ×2 (08:51→20:31)
[2023-05-01] MEDS: ATORVASTATIN 20 MG TABLET PO (08:51)
[2023-05-01] MEDS: APIXABAN 2.5 MG TABLET PO ×2 (08:51→17:50)
[2023-05-01] MEDS: TRIAMCINOLONE ACET 0.1% CREAM 80 GM TUBE 1 APPLIC TOPICAL ×2 (08:52→20:31)
[2023-05-01] MEDS: TOLNAFTATE 1% POWDER 45 GM BTL 1 APPLIC TOPICAL ×2 (08:52→20:31)
--- NOTE | 2023-05-01 10:01 | P.PNIM_ITS ---
Progress Note: A&P Assessment and Plan (1) Panniculitis: Code(s): M79.3 - Panniculitis, unspecified Status: Acute Assessment and Plan: 04/29/23: * Does not meet Sepsis criteria. * Visible on CT scan. * Consistent with elevated CRP and Sed Rate * Continue Vancomycin therapy * Tolnaftate powder and Betamethasone cream topically to affected areas topically. * Trend labs and VS. * Blood cultures x2 pending. * PRN pain meds. 04/30/23: * Blood cultures showing no growth to date * Continue with current treatment plan 05/01/23: * Blood culture showing no growth today * Continue with current treatment plan (2) ESRD on hemodialysis: Code(s): N18.6 - End stage renal disease; Z99.2 - Dependence on renal dialysis Status: Acute Assessment and Plan: 04/29/23: * HD, consult Nephrology for ordering and management. * Pt has missed two recent sittings. 04/30/23: * HD today * Nephrology following 05/01/23: * She had HD yesterday with 2 week removal * Nephrology following * Likely will have dialysis again tomorrow (3) Insulin dependent type 2 diabetes mellitus: Code(s): E11.9 - Type 2 diabetes mellitus without complications; Z79.4 - [facility] (current) use of insulin Status: Chronic Assessment and Plan: 04/29/23: * Heart Healthy Diet * Hypoglycemic protocol * Glucose checks AC and HS * Check A1C in AM. * SSI Low dose * Hold home dose of 10 units with meals in the setting that pt had a hypoglycemic episode today with glucose in the 40s 04/30/23: * BG ranging 109-174 * Will check Hgb A1C in the morning. * Continue with current treatment plan 05/01/23: * No change to current treatment plan (4) Urinary tract infection: Code(s): N39.0 - Urinary tract infection, site not specified Status: Acute Assessment and Plan: 04/29/23: * As evidenced by urine appearing turbid, with 3+ Protein, 2+ Blood, 3+ Leuks, >100 WBC's with clumps present, and only a few epithelials. * Will add Rocephin to pt's abx regimen * Urine culture is pending 04/30/23: * UC showing Klebsiella pneumoniae, on preliminary * Continue Rocephin * Will await final culture results 05/01/23: * Urine culture showing Klebsiella pneumonia a on final read * Rocephin and Ancef to discontinue and will start patient on doxycycline and Augmentin oral for 7 days (5) Itching: Code(s): L29.9 - Pruritus, unspecified Status: Acute Assessment and Plan: 04/29/23: * Pt is itching on her back from laying against the sheets. * Benadryl is ordered for IV dosing. * Triamcinolone cream is ordered for topical application. 04/30/23: * Continue with current treatment plan (6) Status post below knee amputation of right lower extremity: Onset Date: 12/2020 Code(s): Z89.511 - Acquired absence of right leg below knee Status: Chronic Assessment and Plan: 04/29/23: * Noted BKA on physical exam 04/30/23: * of note, no change (7) Hypertension: Code(s): I10 - Essential (primary) hypertension Status: Chronic Assessment and Plan: 04/29/23: * Continue Carvedilol 25 mg BID and monitor BP's. * Heart healthy diet 04/30/23: * Continue with current treatment plan (8) Grade II diastolic dysfunction: Code(s): I51.9 - Heart disease, unspecified Status: Chronic Assessment and Plan: 04/29/23: * Currently appears euvolemic. *
--- NOTE | 2023-05-01 10:01 | PM.IMPN ---
Progress Note: A&P Assessment and Plan (1) Panniculitis: Code(s): M79.3 - Panniculitis, unspecified Status: Acute Assessment and Plan: 04/29/23: Does not meet Sepsis criteria. Visible on CT scan. Consistent with elevated CRP and Sed Rate Continue Vancomycin therapy Tolnaftate powder and Betamethasone cream topically to affected areas topically. Trend labs and VS. Blood cultures x2 pending. PRN pain meds. 04/30/23: Blood cultures showing no growth to date Continue with current treatment plan 05/01/23: Blood culture showing no growth today Continue with current treatment plan (2) ESRD on hemodialysis: Code(s): N18.6 - End stage renal disease; Z99.2 - Dependence on renal dialysis Status: Acute Assessment and Plan: 04/29/23: HD, consult Nephrology for ordering and management. Pt has missed two recent sittings. 04/30/23: HD today Nephrology following 05/01/23: She had HD yesterday with 2 week removal Nephrology following Likely will have dialysis again tomorrow (3) Insulin dependent type 2 diabetes mellitus: Code(s): E11.9 - Type 2 diabetes mellitus without complications; Z79.4 - [facility] (current) use of insulin Status: Chronic Assessment and Plan: 04/29/23: Heart Healthy Diet Hypoglycemic protocol Glucose checks AC and HS Check A1C in AM. SSI Low dose Hold home dose of 10 units with meals in the setting that pt had a hypoglycemic episode today with glucose in the 40s 04/30/23: BG ranging 109-174 Will check Hgb A1C in the morning. Continue with current treatment plan 05/01/23: No change to current treatment plan (4) Urinary tract infection: Code(s): N39.0 - Urinary tract infection, site not specified Status: Acute Assessment and Plan: 04/29/23: As evidenced by urine appearing turbid, with 3+ Protein, 2+ Blood, 3+ Leuks, >100 WBC's with clumps present, and only a few epithelials. Will add Rocephin to pt's abx regimen Urine culture is pending 04/30/23: UC showing Klebsiella pneumoniae, on preliminary Continue Rocephin Will await final culture results 05/01/23: Urine culture showing Klebsiella pneumonia a on final read Rocephin and Ancef to discontinue and will start patient on doxycycline and Augmentin oral for 7 days (5) Itching: Code(s): L29.9 - Pruritus, unspecified Status: Acute Assessment and Plan: 04/29/23: Pt is itching on her back from laying against the sheets. Benadryl is ordered for IV dosing. Triamcinolone cream is ordered for topical application. 04/30/23: Continue with current treatment plan (6) Status post below knee amputation of right lower extremity: Onset Date: 12/2020 Code(s): Z89.511 - Acquired absence of right leg below knee Status: Chronic Assessment and Plan: 04/29/23: Noted BKA on physical exam 04/30/23: of note, no change (7) Hypertension: Code(s): I10 - Essential (primary) hypertension Status: Chronic Assessment and Plan: 04/29/23: Continue Carvedilol 25 mg BID and monitor BP's. Heart healthy diet 04/30/23: Continue with current treatment plan (8) Grade II diastolic dysfunction: Code(s): I51.9 - Heart disease, unspecified Status: Chronic Assessment and Plan: 04/29/23: Currently appears euvolemic. Last ECHO was 06/2019 that showed an EF of 55-60% and pulmonary HTN. If any acute s/s of decompensation during this admission, low threshold for obtaining an ECHO during hospitalization. 04/30/23: Continue with current treatment plan Time Spent With Patient Time with patient: Greater than 35 minutes Subjective Date/time seen: 05/01/23 10:01 Interval history: 04/28/23:(Copy forward from chart) This is a 73-year-old female with past medical history significant for end-stage renal disease on hemodialysis, insulin-dependent diabetes mellitus,
--- NOTE | 2023-05-01 10:31 | PM.PNNEP ---
Progress Note: A&P Assessment and Plan (1) End-stage renal disease (ESRD): Onset Date: Unknown Code(s): N18.6 - End stage renal disease Status: Chronic Assessment and Plan: plan next HD on plan to resume T/T/S outpatient dialysis schedule this week follow electrolytes, volume status, and clearance (2) Panniculitis: Code(s): M79.3 - Panniculitis, unspecified Status: Acute Assessment and Plan: as evidence by exam findings follow culture data on antibiotics local wound care (3) Urinary tract infection: Code(s): N39.0 - Urinary tract infection, site not specified Status: Acute Assessment and Plan: admission UA highly suggestive urine culture with Klebsiella on antibiotics (4) Hypertension: Code(s): I10 - Essential (primary) hypertension Status: Chronic Assessment and Plan: reasonably controlled follow trend of hemodynamics (5) Anemia: Code(s): D64.9 - Anemia, unspecified Status: Chronic Assessment and Plan: H/H in range for a dialysis patient Epogen with HD follow trend of H/H (6) Insulin dependent type 2 diabetes mellitus: Code(s): E11.9 - Type 2 diabetes mellitus without complications; Z79.4 - [facility] (current) use of insulin Status: Chronic Assessment and Plan: follow accu-cheks glycemic control per hospitalists Will continue to follow. Subjective Date/time seen: 05/01/23 10:31 Interval history: Follow-up for end stage renal disease on hemodialysis. Tolerated dialysis treatment yesterday without any issues or problems; no apparent distress noted at the time of my visit; was resting comfortably before I woke her up; no other issues/events overnikght or earlier this monring. Exam Narrative: General: WD/WN female in NAD Heart: normal S1 and S2; no rub Lungs: clear to auscultation Abdomen: soft, nontender, nondistended, positive bowel sounds Extremities: no cyanosis or clubbing; no edema Skin: erythema and excoriations noted on pannus Objective Data Vital Signs Vital Signs: Vital Signs Temp Pulse Resp BP Pulse Ox O2 Del Method 05/01/23 08:00 Room Air 05/01/23 08:48 69 05/01/23 06:00 97.0 F L 70 16 105/49 L 94 04/30/23 22:00 98.4 F 72 20 119/49 L 98 04/30/23 20:00 Room Air 04/30/23 17:48 64 158/62 H 04/30/23 17:53 97.2 F L 63 16 147/62 H 04/30/23 17:30 69 148/62 H 04/30/23 18:27 65 04/30/23 17:15 68 138/66 04/30/23 17:00 68 141/56 H 04/30/23 16:45 68 135/64 04/30/23 16:30 70 139/62 04/30/23 16:15 68 127/58 L 04/30/23 16:00 69 133/64 04/30/23 15:45 60 127/54 L 04/30/23 15:30 68 128/65 04/30/23 15:15 67 139/68 04/30/23 15:00 60 134/63 04/30/23 14:45 66 136/70 04/30/23 14:30 66 136/61 04/30/23 14:15 63 112/62 04/30/23 14:13 63 112/62 04/30/23 14:00 97.3 F L 67 16 125/63 04/30/23 13:43 97.1 F L 59 L 18 124/55 L 95 Intake/Output Intake/Output: Intake & Output 04/28/23 04/29/23 04/30/23 05/01/23 23:59 23:59 23:59 23:59 Intake Total 1100 920 600 Output Total 2000 800 Balance 1100 1080 -200 Meds/Results Medications: Active Medications Generic Name Dose Route Start Last Admin Trade Name Jitendra PRN Reason Stop Dose Admin Allopurinol 100 mg 04/29/23 09:00 05/01/23 08:48 Allopurinol 100 Mg Tablet PO 100 mg DAILY MICHELL Administration Apixaban 2.5 mg 04/29/23 09:00 05/01/23 08:51 Apixaban 2.5 Mg Tablet PO 2.5 mg BID MICHELL Administration Atorvastatin Calcium 20 mg 04/29/23 09:00 05/01/23 08:51 Atorvastatin 20 Mg Tablet PO 20 mg DAILY MICHELL Administration Bupropion HCl 150 mg 04/29/23 09:00 05/01/23 08:48 Bupropion Hcl Sr (12 Hr) 150 Mg Tab PO 150 mg DAILY MICHELL Administration Calcium Acetate
--- NOTE | 2023-05-01 10:31 | P.PNNP_ITS ---
Progress Note: A&P Assessment and Plan (1) End-stage renal disease (ESRD): Onset Date: Unknown Code(s): N18.6 - End stage renal disease Status: Chronic Assessment and Plan: * plan next HD on * plan to resume T/T/S outpatient dialysis schedule this week * follow electrolytes, volume status, and clearance (2) Panniculitis: Code(s): M79.3 - Panniculitis, unspecified Status: Acute Assessment and Plan: * as evidence by exam findings * follow culture data * on antibiotics * local wound care (3) Urinary tract infection: Code(s): N39.0 - Urinary tract infection, site not specified Status: Acute Assessment and Plan: * admission UA highly suggestive * urine culture with Klebsiella * on antibiotics (4) Hypertension: Code(s): I10 - Essential (primary) hypertension Status: Chronic Assessment and Plan: * reasonably controlled * follow trend of hemodynamics (5) Anemia: Code(s): D64.9 - Anemia, unspecified Status: Chronic Assessment and Plan: * H/H in range for a dialysis patient * Epogen with HD * follow trend of H/H (6) Insulin dependent type 2 diabetes mellitus: Code(s): E11.9 - Type 2 diabetes mellitus without complications; Z79.4 - half-way (current) use of insulin Status: Chronic Assessment and Plan: * follow accu-cheks * glycemic control per hospitalists Will continue to follow. Subjective Date/time seen: 05/01/23 10:31 Interval history: Follow-up for end stage renal disease on hemodialysis. Tolerated dialysis treatment yesterday without any issues or problems; no a pparent distress noted at the time of my visit; was resting comfortably before I woke her up; no other issues/events overnikght or earlier this mon. Exam Narrative: General: WD/WN female in NAD Heart: normal S1 and S2; no rub Lungs: clear to auscultation Abdomen: soft, nontender, nondistended, positive bowel sounds Extremities: no cyanosis or clubbing; no edema Skin: erythema and excoriations noted on pannus Objective Data Vital Signs Vital Signs: Vital Signs Temp Pulse Resp BP Pulse Ox O2 Del Method 05/01/23 08:00 Room Air 05/01/23 08:48 69 05/01/23 06:00 97.0 F L 70 16 105/49 L 94 04/30/23 22:00 98.4 F 72 20 119/49 L 98 04/30/23 20:00 Room Air 04/30/23 17:48 64 158/62 H 04/30/23 17:53 97.2 F L 63 16 147/62 H 04/30/23 17:30 69 148/62 H 04/30/23 18:27 65 04/30/23 17:15 68 138/66 04/30/23 17:00 68 141/56 H 04/30/23 16:45 68 135/64 04/30/23 16:30 70 139/62 04/30/23 16:15 68 127/58 L 04/30/23 16:00 69 133/64 04/30/23 15:45 60 127/54 L 04/30/23 15:30 68 128/65 04/30/23 15:15 67 139/68 04/30/23 15:00 60 134/63 04/30/23 14:45 66 136/70 04/30/23 14:30 66 136/61 04/30/23 14:15 63 112/62 04/30/23 14:13 63 112/62 04/30/23 14:00 97.3 F L 67 16 125/63 04/30/23 13:43 97.1 F L 59 L 18 124/55 L 95 Intake/Output Intake/Output: Intake & Output
[2023-05-01 11:20] LABS: Glucose Point of Care 173 mg/dl (65-105)
[2023-05-01 11:43] LABS: Glucose Point of Care 151 mg/dl (65-105)
--- NOTE | 2023-05-01 12:18 | PC.NURSE ---
Spoke with Omid, son. Asked if he could help consent for MRI and CT of the brain with contrast. Said he would feel more comfortable with his other brother on the phone and will call back.
--- NOTE | 2023-05-01 12:31 | PCOTNOTE ---
Attempted OT treatment, RN declines at this time due to assessing the patient for a stroke. Will follow.
--- NOTE | 2023-05-01 12:34 | PC.NURSE ---
Spoke with son Satya. Phone consent given for MRI and CT of the brain with contrast. Second nurse confirmed.
[2023-05-01 17:58] LABS: Glucose Point of Care 137 mg/dl (65-105)
[2023-05-01 19:25] LABS: MRSA (PCR) NOT DETECTED (NOT DETECTE)
[2023-05-01] MEDS: diphenhydrAMINE HCl INJ 50 MG/ML VIAL IV PUSH (20:30)
[2023-05-01] MEDS: QUEtiapine FUMARATE 25 MG TABLET PO (20:31)
[2023-05-01] MEDS: traZODone HCL 50 MG TABLET 100 MG PO (20:31)
[2023-05-01] MEDS: DOXYCYCLINE HYCLATE 100 MG TABLET PO (20:32)
[2023-05-01] MEDS: AMOXICILLIN/CLAVULANATE K 500-125 MG TAB 1 TABLET PO (20:47)
[2023-05-02] VITALS (11 sets, daily range): BP systolic 166–172; BP diastolic 66–92; PULSE 64–84; RESP 18–20; TEMP 36.1–36.6; O2SAT 91–96
[2023-05-02 05:48] LABS: Basophils Absolute Auto 0.1 K/mm3 (0.0-0.1); Basophils Percent Auto 0.8 % (0.2-1.2); Eosinophils Absolute Auto 0.2 K/mm3 (0-0.3); Eosinophils Percent Auto 2.5 % (0-4.4); Immature Granulocyte Absolute 0.04 K/mm3 (0.00-0.031); Immature Granulocyte Percent A 0.6 % (0-0.5); Lymphocytes Absolute Auto 0.71 K/mm3 (0.9-3.2); Lymphocytes Percent Auto 11.2 % (18.3-44.2); Mean Corpuscular HGB Conc 30.6 g/dl (32-36); Mean Corpuscular Volume 104.7 fl (80-100); Mean Platelet Volume 10.8 fl (7.4-10.4); Monocytes Absolute Auto 0.5 K/mm3 (0.1-0.6); Monocytes Percent Auto 7.4 % (2.6-8.5); Neutrophils Absolute Auto 4.9 K/mm3 (1.3-6.7); Neutrophils Percent Auto 77.5 % (45.5-73.1); Platelet Count Result 203 k/mm3 (150-375); Red Blood Count 3.44 M/mm3 (4.2-5.4); Red Cell Distribution Width 16.9 % (11.5-14.5); White Blood Count 6.4 K/mm3 (4.5-10.0)
[2023-05-02 05:53] LABS: Ammonia 17 umol/L (9-30)
[2023-05-02 05:56] LABS: Alanine Aminotransferase 18 U/L (6-35); Alkaline Phosphatase 151 U/L (38-126); Anion Gap 9 mmol/L (8-16); Aspartate Amino Transferase 20 U/L (14-36); Bilirubin,Total 1.2 mg/dL (0.2-1.3); Blood Urea Nitrogen 39 mg/dL (7-17); Calcium 8.4 mg/dL (8.4-10.2); Carbon Dioxide 28 mmol/L (22-30); Chloride 99 mmol/L (98-107); Estimated CRCL calculation 7 ml/min; Estimated Glomerular Filt Rate 5; Glucose 109 mg/dL (65-110); Potassium 4.7 mmol/L (3.4-5.0); Sodium 136 mmol/L (137-145)
[2023-05-02 08:52] LABS: Glucose Point of Care 111 mg/dl (65-105)
--- NOTE | 2023-05-02 10:35 | PCOTNOTE ---
Attempted to see Patient at this time. Patient lathargic, difficult to wake. Patient at times pulling off her gown, undressing, and reaching out in the air. Patient unable to be seen at this time. RN aware. Will check back this afternoon.
[2023-05-02] MEDS: buPROPion HCL SR (12 HR) 150 MG TAB PO (11:49)
[2023-05-02] MEDS: carvediloL 25 MG TABLET PO ×2 (11:49→17:53)
[2023-05-02] MEDS: APIXABAN 2.5 MG TABLET PO ×2 (11:49→17:53)
[2023-05-02] MEDS: ATORVASTATIN 20 MG TABLET PO (11:49)
[2023-05-02] MEDS: AMOXICILLIN/CLAVULANATE K 500-125 MG TAB 1 TABLET PO ×2 (11:49→20:36)
[2023-05-02] MEDS: MUPIROCIN 2% OINT 22 GM TUBE 1 APPLIC TOPICAL (11:50)
[2023-05-02] MEDS: PANTOPRAZOLE 40 MG TABLET PO (11:50)
[2023-05-02] MEDS: allopurinoL 100 MG TABLET PO (11:50)
[2023-05-02] MEDS: DOXYCYCLINE HYCLATE 100 MG TABLET PO ×2 (11:50→20:36)
[2023-05-02] MEDS: BETAMETHASONE/CLOTRIMAZOLE CR 15 GM TUBE 1 APPLIC TOPICAL ×2 (11:51→20:37)
[2023-05-02] MEDS: TOLNAFTATE 1% POWDER 45 GM BTL 1 APPLIC TOPICAL ×2 (11:51→20:36)
[2023-05-02] MEDS: TRIAMCINOLONE ACET 0.1% CREAM 80 GM TUBE 1 APPLIC TOPICAL (11:51)
[2023-05-02] MEDS: CALCIUM ACETATE 667 MG TABLET PO ×2 (11:53→17:53)
[2023-05-02 12:01] LABS: Glucose Point of Care 98 mg/dl (65-105)
--- NOTE | 2023-05-02 13:11 | P.PNIM_ITS ---
Progress Note: A&P Assessment and Plan (1) Panniculitis: Code(s): M79.3 - Panniculitis, unspecified Status: Acute Assessment and Plan: 04/29/23: * Does not meet Sepsis criteria. * Visible on CT scan. * Consistent with elevated CRP and Sed Rate * Continue Vancomycin therapy * Tolnaftate powder and Betamethasone cream topically to affected areas topically. * Trend labs and VS. * Blood cultures x2 pending. * PRN pain meds. 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 * Neurology consulted * Continue neuro checks * PT and OT to eval 05/02/23: * Will order speech eval today * Neurology following * Continue neuro checks * Patient is more alert today, no neuro deficits at this time (3) ESRD on hemodialysis: Code(s): N18.6 - End stage renal disease; Z99.2 - Dependence on renal dialysis Status: Acute Assessment and Plan: 04/29/23: * HD, consult Nephrology for ordering and management. * Pt has missed two recent sittings. 04/30/23: * HD today * Nephrology following 05/01/23: * She had HD yesterday with 2 L removal * Nephrology following * Likely will have dialysis again tomorrow 05/02/2023: * BUN 39, creatinine 7.3 * Nephrology following * Will have next dialysis on (4) Insulin dependent type 2 diabetes mellitus: Code(s): E11.9 - Type 2 diabetes mellitus without complications; Z79.4 - [facility] (current) use of insulin Status: Chronic Assessment and Plan: 04/29/23: * Heart Healthy Diet * Hypoglycemic protocol * Glucose checks AC and HS * Check A1C in AM. * SSI Low dose * Hold home dose of 10 units with meals in the setting that pt had a hypoglycemic episode today with glucose in the 40s 04/30/23: * BG ranging 109-174 * Will check Hgb A1C in the morning. * Continue with current treatment plan 05/01/23: * No change to current treatment plan (5) Urinary tract infection: Code(s): N39.0 - Urinary tract infection, site not specified Status: Acute Assessment and Plan: 04/29/23: * As evidenced by urine appearing turbid, with 3+ Protein, 2+ Blood, 3+ Leuks, >100 WBC's with clumps present, and only a few epithelials. * Will add Rocephin to pt's abx regimen * Urine culture is pending 04/30/23: * UC showing Klebsiella pneumoniae, on preliminary * Continue Rocephin * Will await final culture resul
--- NOTE | 2023-05-02 13:11 | PM.IMPN ---
Progress Note: A&P Assessment and Plan (1) Panniculitis: Code(s): M79.3 - Panniculitis, unspecified Status: Acute Assessment and Plan: 04/29/23: Does not meet Sepsis criteria. Visible on CT scan. Consistent with elevated CRP and Sed Rate Continue Vancomycin therapy Tolnaftate powder and Betamethasone cream topically to affected areas topically. Trend labs and VS. Blood cultures x2 pending. PRN pain meds. 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 Neurology consulted Continue neuro checks PT and OT to eval 05/02/23: Will order speech eval today Neurology following Continue neuro checks Patient is more alert today, no neuro deficits at this time (3) ESRD on hemodialysis: Code(s): N18.6 - End stage renal disease; Z99.2 - Dependence on renal dialysis Status: Acute Assessment and Plan: 04/29/23: HD, consult Nephrology for ordering and management. Pt has missed two recent sittings. 04/30/23: HD today Nephrology following 05/01/23: She had HD yesterday with 2 L removal Nephrology following Likely will have dialysis again tomorrow 05/02/2023: BUN 39, creatinine 7.3 Nephrology following Will have next dialysis on (4) Insulin dependent type 2 diabetes mellitus: Code(s): E11.9 - Type 2 diabetes mellitus without complications; Z79.4 - [facility] (current) use of insulin Status: Chronic Assessment and Plan: 04/29/23: Heart Healthy Diet Hypoglycemic protocol Glucose checks AC and HS Check A1C in AM. SSI Low dose Hold home dose of 10 units with meals in the setting that pt had a hypoglycemic episode today with glucose in the 40s 04/30/23: BG ranging 109-174 Will check Hgb A1C in the morning. Continue with current treatment plan 05/01/23: No change to current treatment plan (5) Urinary tract infection: Code(s): N39.0 - Urinary tract infection, site not specified Status: Acute Assessment and Plan: 04/29/23: As evidenced by urine appearing turbid, with 3+ Protein, 2+ Blood, 3+ Leuks, >100 WBC's with clumps present, and only a few epithelials. Will add Rocephin to pt's abx regimen Urine culture is pending 04/30/23: UC showing Klebsiella pneumoniae, on preliminary Continue Rocephin Will await final culture results 05/01/23: Urine culture showing Klebsiella pneumonia a on final read Rocephin and Ancef to discontinue and will start patient on doxycycline and Augmentin oral for 7 days 05/02/2023: No change to current treatment plan (6) Itching: Code(s): L29.9 - Pruritus, unspecified Status: Acute Assessment and Plan: 04/29/23: Pt is itching on her back from laying against the sheets. Benadryl is ordered for IV dosing. Triamcinolone cream is ordered for topical application. 04/30/23:
--- NOTE | 2023-05-02 13:23 | PM.PNNEP ---
Progress Note: A&P Assessment and Plan (1) End-stage renal disease (ESRD): Onset Date: Unknown Code(s): N18.6 - End stage renal disease Status: Chronic Assessment and Plan: HD tomorrow continue/resume T/T/S outpatient dialysis schedule while hospitalized follow electrolytes, volume status, and clearance (2) Panniculitis: Code(s): M79.3 - Panniculitis, unspecified Status: Acute Assessment and Plan: as evidenced by exam findings follow culture data (negative to date) on antibiotics local wound care (3) Neurological deficit, transient: Code(s): R29.818 - Other symptoms and signs involving the nervous system Status: Acute Assessment and Plan: as evidenced by garbled speech and facial numbness (on 05/01/23) extensive imaging done witn no acute findings follow neurological status PT/OT as tolerated (4) Urinary tract infection: Code(s): N39.0 - Urinary tract infection, site not specified Status: Acute Assessment and Plan: admission UA highly suggestive urine culture with Klebsiella on antibiotics (5) Hypertension: Code(s): I10 - Essential (primary) hypertension Status: Chronic Assessment and Plan: reasonably controlled follow trend of hemodynamics (6) Anemia: Code(s): D64.9 - Anemia, unspecified Status: Chronic Assessment and Plan: H/H in range for a dialysis patient Epogen with HD follow trend of H/H (7) Insulin dependent type 2 diabetes mellitus: Code(s): E11.9 - Type 2 diabetes mellitus without complications; Z79.4 - rn long term care (current) use of insulin Status: Chronic Assessment and Plan: follow accu-cheks glycemic control per hospitalists Will continue to follow. Subjective Date/time seen: 05/02/23 13:23 Interval history: Follow-up for end stage renal disease on hemodialysis. Events noted late yesterday morning -- patient with garbled speech and facial numbness; multiple imaging done including CTA head and neck & MRI of brain without any acute findings; however, she seems to be feeling better today. Exam Narrative: General: WD/WN female in NAD Heart: normal S1 and S2; no rub Lungs: clear to auscultation Abdomen: soft, nontender, nondistended, positive bowel sounds Extremities: no cyanosis or clubbing; no edema Skin: reducing erythema noted on pannus Objective Data Vital Signs Vital Signs: Vital Signs Temp Pulse Resp BP Pulse Ox O2 Del Method 05/02/23 13:20 97.2 F L 69 18 170/66 H 91 05/02/23 12:00 69 05/02/23 08:00 64 05/02/23 09:45 Room Air 05/02/23 11:49 84 05/02/23 06:00 97.0 F L 67 18 172/92 H 96 05/01/23 22:15 93 Room Air 05/02/23 04:00 65 05/02/23 00:00 66 05/01/23 22:00 97.8 F 126 H 18 157/64 H 97 05/01/23 20:00 Room Air 05/01/23 20:00 64 05/01/23 17:51 64 05/01/23 16:49 97.0 F L 65 16 146/62 H 90 Intake/Output Intake/Output: Intake & Output 04/29/23 04/30/23 05/01/23 05/02/23 23:59 23:59 23:59 23:59 Intake Total 1100 920 600 240 Output Total 2000 800 Balance 1100 -1080 -200 240 Meds/Results Medications: Active Medications Generic Name Dose Route Start Last Admin Trade Name Freq PRN Reason Stop Dose Admin Allopurinol 100 mg 04/29/23 09:00 05/02/23 11:50 Allopurinol 100 Mg Tablet PO 100 mg DAILY MICHELL Administration Amoxicillin/Clavulanate Potassium 1 tablet 05/01/23 21:00 05/02/23 11:49 Amoxicillin/Clavulanate K 500-125 Mg Tab PO 05/06/23 09:01 1 tablet Q12HR MICHELL Administration Apixaban 2.5 mg 04/29/23 09:00 05/02/23 11:49 Apixaban 2.5 Mg Tablet PO 2.5 mg BID MICHELL Administration Atorvastatin Calcium 20 mg 04/29/23 09:00 05/02/23 11:49 Atorvastatin 20 Mg Tablet PO 20 mg DAILY MICHELL Administration Bupropion HCl 150 mg 04/29/23 09:0
--- NOTE | 2023-05-02 13:23 | P.PNNP_ITS ---
Progress Note: A&P Assessment and Plan (1) End-stage renal disease (ESRD): Onset Date: Unknown Code(s): N18.6 - End stage renal disease Status: Chronic Assessment and Plan: * HD tomorrow * continue/resume T/T/S outpatient dialysis schedule while hospitalized * follow electrolytes, volume status, and clearance (2) Panniculitis: Code(s): M79.3 - Panniculitis, unspecified Status: Acute Assessment and Plan: * as evidenced by exam findings * follow culture data (negative to date) * on antibiotics * local wound care (3) Neurological deficit, transient: Code(s): R29.818 - Other symptoms and signs involving the nervous system Status: Acute Assessment and Plan: * as evidenced by garbled speech and facial numbness (on 05/01/23) * extensive imaging done witn no acute findings * follow neurological status * PT/OT as tolerated (4) Urinary tract infection: Code(s): N39.0 - Urinary tract infection, site not specified Status: Acute Assessment and Plan: * admission UA highly suggestive * urine culture with Klebsiella * on antibiotics (5) Hypertension: Code(s): I10 - Essential (primary) hypertension Status: Chronic Assessment and Plan: * reasonably controlled * follow trend of hemodynamics (6) Anemia: Code(s): D64.9 - Anemia, unspecified Status: Chronic Assessment and Plan: * H/H in range for a dialysis patient * Epogen with HD * follow trend of H/H (7) Insulin dependent type 2 diabetes mellitus: Code(s): E11.9 - Type 2 diabetes mellitus without complications; Z79.4 - [employer] (current) use of insulin Status: Chronic Assessment and Plan: * follow accu-cheks * glycemic control per hospitalists Will continue to follow. Subjective Date/time seen: 05/02/23 13:23 Interval history: Follow-up for end stage renal disease on hemodialysis. Events noted late yesterday morning -- patient with garbled speech and facial numbness; multiple imaging done including CTA head and neck & MRI of brain without any acute findings; however, she seems to be feeling better today. Exam Narrative: General: WD/WN female in NAD Heart: normal S1 and S2; no rub Lungs: clear to auscultation Abdomen: soft, nontender, nondistended, positive bowel sounds Extremities: no cyanosis or clubbing; no edema Skin: reducing erythema noted on pannus Objective Data Vital Signs Vital Signs: Vital Signs Temp Pulse Resp BP Pulse Ox O2 Del Method 05/02/23 13:20 97.2 F L 69 18 170/66 H 91 05/02/23 12:00 69 05/02/23 08:00 64 05/02/23 09:45 Room Air 05/02/23 11:49 84 05/02/23 06:00 97.0 F L 67 18 172/92 H 96 05/01/23 22:15 93 Room Air 05/02/23 04:00 65 05/02/23 00:00 66 05/01/23 22:00 97.8 F 126 H 18 157/64 H 97 05/01/23 20:00 Room Air 05/01/23 20:00 64 05/01/23 17:51 64 05/01/23 16:49 97.0 F L 65 16 146/62 H 90 Intake/Output Intake/Output: Intake & Output 04/29/23 04/30/23 05/01/23 05/02/23 23:59 23:59 23:59 23:59 Intake Total 1100 920 600 240 Outp
[2023-05-02 14:25] LABS: Alveolar/Arterial O2 Gradient 34.4 mmHg; Base Excess ABG -0.2 mEq/l (+/-2.0); Fractional Inspired Oxygen 21 %; HCO3 ABG 25.2 mEq/l (22.0-26.0); Oxygen Content ABG 15.8 %vol (16.0-22.0); Oxygen Saturation ABG 91.4 % (95.0-100.0); Oxyhemoglobin 87.9 % THb (90.0-100.0); PCO2 ABG 44.1 mmHg (35.0-45.0); PO2 ABG 62.5 mmHg (80.0-100.0); PO2 FiO2 Ratio Arterial Blood 2.98 %; Total Hemoglobin 12.8 g/dL (12.0-18.0); pH ABG 7.375 (7.350-7.450)
[2023-05-02 14:26] LABS: Site Drawn RIGHT BRACHIAL
--- NOTE | 2023-05-02 16:13 | PCSTNOTE ---
Please refer to the Bedside Swallow Evaluation in the EMR. Please note, silent aspiration cannot be ruled out at bedside.
[2023-05-02 17:39] LABS: Glucose Point of Care 116 mg/dl (65-105)
--- NOTE | 2023-05-02 18:46 | PC.NURSE ---
This nurse has reviewed the charting assessment for this pt.
[2023-05-02 20:17] LABS: Glucose Point of Care 124 mg/dl (65-105)
[2023-05-02] MEDS: traZODone HCL 50 MG TABLET 100 MG PO (20:36)
[2023-05-02] MEDS: QUEtiapine FUMARATE 25 MG TABLET PO (20:36)
[2023-05-03] VITALS (29 sets, daily range): BP systolic 124–167; BP diastolic 44–82; PULSE 65–75; RESP 16–18; TEMP 35.7–37.1; O2SAT 90–100
[2023-05-03 05:40] LABS: Basophils Absolute Auto 0.1 K/mm3 (0.0-0.1); Basophils Percent Auto 0.6 % (0.2-1.2); Eosinophils Absolute Auto 0.1 K/mm3 (0-0.3); Hematocrit 37.9 % (37.0-47.0); Hemoglobin 11.7 g/dL (12.0-15.0); Immature Granulocyte Absolute 0.04 K/mm3 (0.00-0.031); Immature Granulocyte Percent A 0.4 % (0-0.5); Lymphocytes Absolute Auto 0.63 K/mm3 (0.9-3.2); Lymphocytes Percent Auto 6.4 % (18.3-44.2); Mean Corpuscular HGB Conc 30.9 g/dl (32-36); Mean Corpuscular Hemoglobin 31.9 pg (26-34); Mean Corpuscular Volume 103.3 fl (80-100); Mean Platelet Volume 10.3 fl (7.4-10.4); Monocytes Absolute Auto 0.5 K/mm3 (0.1-0.6); Monocytes Percent Auto 4.5 % (2.6-8.5); Neutrophils Absolute Auto 8.6 K/mm3 (1.3-6.7); Neutrophils Percent Auto 87.1 % (45.5-73.1); Platelet Count Result 212 k/mm3 (150-375); Red Blood Count 3.67 M/mm3 (4.2-5.4); Red Cell Distribution Width 17.2 % (11.5-14.5); White Blood Count 9.9 K/mm3 (4.5-10.0)
[2023-05-03 05:57] LABS: Alanine Aminotransferase 17 U/L (6-35); Albumin Level 2.9 g/dL (3.5-5.1); Alkaline Phosphatase 159 U/L (38-126); Anion Gap 10 mmol/L (8-16); Aspartate Amino Transferase 23 U/L (14-36); Bilirubin,Total 1.3 mg/dL (0.2-1.3); Blood Urea Nitrogen 44 mg/dL (7-17); Calcium 8.2 mg/dL (8.4-10.2); Carbon Dioxide 27 mmol/L (22-30); Chloride 98 mmol/L (98-107); Estimated CRCL calculation 6 ml/min; Estimated Glomerular Filt Rate 5; Glucose 115 mg/dL (65-110); Potassium 5.2 mmol/L (3.4-5.0); Sodium 135 mmol/L (137-145)
--- NOTE | 2023-05-03 08:05 | PC.NURSE ---
Patient off unit to dialysis.
--- NOTE | 2023-05-03 08:36 | PCPTNOTE ---
The patient treatment was not able to be completed this AM on 05/03/2023 due to patient out of the room for dialysis. Will plan to continue treatment per plan of care.
--- NOTE | 2023-05-03 09:28 | P.PNIM_ITS ---
Progress Note: A&P Assessment and Plan (1) Neurological deficit, transient: Code(s): R29.818 - Other symptoms and signs involving the nervous system Status: Acute (2) Panniculitis: Code(s): M79.3 - Panniculitis, unspecified Status: Acute (3) ESRD on hemodialysis: Code(s): N18.6 - End stage renal disease; Z99.2 - Dependence on renal dialysis Status: Acute (4) Diabetes: Qualifiers: Chronic kidney disease stage: on chronic dialysis Diabetes mellitus complication detail: with chronic kidney disease Diabetes mellitus complication status: with kidney complications Diabetes mellitus jail insulin use: with jail use Diabetes mellitus type: type 2 Qualified Code(s): E11.22 - Type 2 diabetes mellitus with diabetic chronic kidney disease; N18.6 - End stage renal disease; Z79.4 - [facility] (current) use of insulin; Z99.2 - Dependence on renal dialysis Code(s): E11.9 - Type 2 diabetes mellitus without complications Status: Acute (5) Acute encephalopathy: Code(s): G93.40 - Encephalopathy, unspecified Status: Acute Plan (1) Panniculitis: ?Code(s): M79.3 - Panniculitis, unspecified ?Status:?Acute ?Assessment and Plan: 04/29/23: * Does not meet Sepsis criteria. * Visible on CT scan. * Consistent with elevated CRP and Sed Rate * Continue Vancomycin therapy * Tolnaftate powder and Betamethasone cream topically to affected areas topically. * Trend labs and VS. * PRN pain meds. 04/30/23: * Blood cultures showing no growth to date * Continue with current treatment plan 05/01/23: * Blood culture showing no growth today * Continue with current treatment plan 05/02/23: * Blood cultures still showing no growth on preliminary 05/03: Patient has some doxycycline 100 mg q.12 hours p.o., follow-up procalcitonin (2) Neurological deficit present: ?Code(s): R29.818 - Other symptoms and signs involving the nervous system ?Status:?Acute ?Assessment and Plan: 05/01/2023: * Patient found to have garbled speech and she reports numbness to her face ye sterday * Head CT negative for any acute intracranial process * Head and neck CTA showing 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 * Neurology consulted * Continue neuro checks * PT and OT to eval 05/02/23: * Will order speech eval today * Neurology following * Continue neuro checks * Patient is more alert today, no neuro deficits at this time Acute encephalopathy 05/03 When I saw exam patient, patient was somnolent, patient was able to move all extremities, not oriented x3 Likely secondary to polypharmacy, patient has psychiatric disorders, on multiple medications including BuSpar, Seroquel, trazodone, patient is also on Benadryl, morphine and Dilaudid lorazepam pain IV needed Hold medications with side effects of sedation Neuro check (3) ESRD on hemodialysis: ?Code(s): N18.6 - End stage renal disease; Z99.2 - Dependence on renal dialysis ?Status:?Acute ?Assessment and Plan:
--- NOTE | 2023-05-03 09:28 | PM.IMPN ---
Progress Note: A&P Assessment and Plan (1) Neurological deficit, transient: Code(s): R29.818 - Other symptoms and signs involving the nervous system Status: Acute (2) Panniculitis: Code(s): M79.3 - Panniculitis, unspecified Status: Acute (3) ESRD on hemodialysis: Code(s): N18.6 - End stage renal disease; Z99.2 - Dependence on renal dialysis Status: Acute (4) Diabetes: Qualifiers: Chronic kidney disease stage: on chronic dialysis Diabetes mellitus complication detail: with chronic kidney disease Diabetes mellitus complication status: with kidney complications Diabetes mellitus fci insulin use: with fci use Diabetes mellitus type: type 2 Qualified Code(s): E11.22 - Type 2 diabetes mellitus with diabetic chronic kidney disease; N18.6 - End stage renal disease; Z79.4 - group home (current) use of insulin; Z99.2 - Dependence on renal dialysis Code(s): E11.9 - Type 2 diabetes mellitus without complications Status: Acute (5) Acute encephalopathy: Code(s): G93.40 - Encephalopathy, unspecified Status: Acute Plan (1) Panniculitis: ?Code(s): M79.3 - Panniculitis, unspecified ?Status:?Acute ?Assessment and Plan: 04/29/23: Does not meet Sepsis criteria. Visible on CT scan. Consistent with elevated CRP and Sed Rate Continue Vancomycin therapy Tolnaftate powder and Betamethasone cream topically to affected areas topically. Trend labs and VS. PRN pain meds. 04/30/23: Blood cultures showing no growth to date Continue with current treatment plan 05/01/23: Blood culture showing no growth today Continue with current treatment plan 05/02/23: Blood cultures still showing no growth on preliminary 05/03: Patient has some doxycycline 100 mg q.12 hours p.o., follow-up procalcitonin (2) Neurological deficit present: ?Code(s): R29.818 - Other symptoms and signs involving the nervous system ?Status:?Acute ?Assessment and Plan: 05/01/2023: Patient found to have garbled speech and she reports numbness to her face yesterday Head CT negative for any acute intracranial process Head and neck 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 Neurology consulted Continue neuro checks PT and OT to eval 05/02/23: Will order speech eval today Neurology following Continue neuro checks Patient is more alert today, no neuro deficits at this time Acute encephalopathy 05/03 When I saw exam patient, patient was somnolent, patient was able to move all extremities, not oriented x3 Likely secondary to polypharmacy, patient has psychiatric disorders, on multiple medications including BuSpar, Seroquel, trazodone, patient is also on Benadryl, morphine and Dilaudid lorazepam pain IV needed Hold medications with side effects of sedation Neuro check (3) ESRD on hemodialysis: ?Code(s): N18.6 - End stage renal disease; Z99.2 - Dependence on renal dialysis ?Status:?Acute ?Assessment and Plan: 04/29/23: ?HD, consult Nephrology for ordering and management. Pt has missed two recent sittings. 04/30/23: HD today Nephrology following 05/01/23: She had HD yesterday with 2 L removal Nephrology following Likely will have dialysis again tomorrow 05/02/2023: BUN 39, creatinine 7.3 Nephrology following Will have next dialysis on (4) Insulin dependent type 2 diabetes mellitus: ?Code(s): E11.9 - T
--- NOTE | 2023-05-03 12:05 | PCOTNOTE ---
Patient out of the room this A.M. Patient is dialysis. Will check back this P.M.
--- NOTE | 2023-05-03 12:10 | P.PNNP_ITS ---
Progress Note: A&P Assessment and Plan (1) End-stage renal disease (ESRD): Onset Date: Unknown Code(s): N18.6 - End stage renal disease Status: Chronic Assessment and Plan: * HD today * continue/resume T/T/S outpatient dialysis schedule while hospitalized * follow electrolytes, volume status, and clearance (2) Panniculitis: Code(s): M79.3 - Panniculitis, unspecified Status: Acute Assessment and Plan: * as evidenced by exam findings * follow culture data (negative to date) * on antibiotics * local wound care (3) Neurological deficit, transient: Code(s): R29.818 - Other symptoms and signs involving the nervous system Status: Acute Assessment and Plan: * as evidenced by garbled speech and facial numbness (on 05/01/23) * extensive imaging done with no acute findings * Neurology consulted * follow neurological status * PT/OT as tolerated (4) Urinary tract infection: Code(s): N39.0 - Urinary tract infection, site not specified Status: Acute Assessment and Plan: * admission UA highly suggestive * urine culture with Klebsiella * on antibiotics (5) Hypertension: Code(s): I10 - Essential (primary) hypertension Status: Chronic Assessment and Plan: * reasonably controlled * follow trend of hemodynamics (6) Anemia: Code(s): D64.9 - Anemia, unspecified Status: Chronic Assessment and Plan: * H/H in range for a dialysis patient * Epogen with HD * follow trend of H/H (7) Insulin dependent type 2 diabetes mellitus: Code(s): E11.9 - Type 2 diabetes mellitus without complications; Z79.4 - shelter (current) use of insulin Status: Chronic Assessment and Plan: * follow accu-cheks * glycemic control per hospitalists Will continue to follow. Subjective Date/time seen: 05/03/23 12:10 Interval history: Follow-up for end stage renal disease on hemodialysis. Tolerating dialysis treatment at the time of my visit (seen on HD at 12:01PM); no apparent distress noted but seems a bit more sleepy/lethargic when seen; no acute issues/events overnight or earlier this morning; no apparent distress. Exam Narrative: General: WD/WN female in NAD Heart: normal S1 and S2; no rub Lungs: clear to auscultation Abdomen: soft, nontender, nondistended, positive bowel sounds Extremities: no cyanosis or clubbing; no edema Skin: reducing erythema noted on pannus Objective Data Vital Signs Vital Signs: Vital Signs Temp Pulse Resp BP Pulse Ox 05/03/23 12:00 66 140/57 L 05/03/23 11:45 65 147/65 H 05/03/23 11:30 65 151/74 H 05/03/23 11:15 71 144/68 H 05/03/23 11:00 70 163/71 H 05/03/23 10:45 70 150/69 05/03/23 10:30 70 156/68 H 05/03/23 10:15 70 155/75 H 05/03/23 10:00 72 147/65 H 05/03/23 09:45 71 153/57 H 05/03/23 09:30 71 164/75 H 05/03/23 09:15 72 163/76 H 05/03/23 09:00 72 164/80 H 05/03/23 08:55 72 167/82 H 05/03/23 08:37 98.4 F 72 16 161/75 H 96 05/03/23 05:37 98.8 F 73 16 161/72 H 92 05/03/23 04:00 69 05/03/23 00:00 70 05/02/23 20:00 69 05/02/23 20:37 97.8 F
--- NOTE | 2023-05-03 12:10 | PM.PNNEP ---
Progress Note: A&P Assessment and Plan (1) End-stage renal disease (ESRD): Onset Date: Unknown Code(s): N18.6 - End stage renal disease Status: Chronic Assessment and Plan: HD today continue/resume T/T/S outpatient dialysis schedule while hospitalized follow electrolytes, volume status, and clearance (2) Panniculitis: Code(s): M79.3 - Panniculitis, unspecified Status: Acute Assessment and Plan: as evidenced by exam findings follow culture data (negative to date) on antibiotics local wound care (3) Neurological deficit, transient: Code(s): R29.818 - Other symptoms and signs involving the nervous system Status: Acute Assessment and Plan: as evidenced by garbled speech and facial numbness (on 05/01/23) extensive imaging done with no acute findings Neurology consulted follow neurological status PT/OT as tolerated (4) Urinary tract infection: Code(s): N39.0 - Urinary tract infection, site not specified Status: Acute Assessment and Plan: admission UA highly suggestive urine culture with Klebsiella on antibiotics (5) Hypertension: Code(s): I10 - Essential (primary) hypertension Status: Chronic Assessment and Plan: reasonably controlled follow trend of hemodynamics (6) Anemia: Code(s): D64.9 - Anemia, unspecified Status: Chronic Assessment and Plan: H/H in range for a dialysis patient Epogen with HD follow trend of H/H (7) Insulin dependent type 2 diabetes mellitus: Code(s): E11.9 - Type 2 diabetes mellitus without complications; Z79.4 - alf (current) use of insulin Status: Chronic Assessment and Plan: follow accu-cheks glycemic control per hospitalists Will continue to follow. Subjective Date/time seen: 05/03/23 12:10 Interval history: Follow-up for end stage renal disease on hemodialysis. Tolerating dialysis treatment at the time of my visit (seen on HD at 12:01PM); no apparent distress noted but seems a bit more sleepy/lethargic when seen; no acute issues/events overnight or earlier this morning; no apparent distress. Exam Narrative: General: WD/WN female in NAD Heart: normal S1 and S2; no rub Lungs: clear to auscultation Abdomen: soft, nontender, nondistended, positive bowel sounds Extremities: no cyanosis or clubbing; no edema Skin: reducing erythema noted on pannus Objective Data Vital Signs Vital Signs: Vital Signs Temp Pulse Resp BP Pulse Ox 05/03/23 12:00 66 140/57 L 05/03/23 11:45 65 147/65 H 05/03/23 11:30 65 151/74 H 05/03/23 11:15 71 144/68 H 05/03/23 11:00 70 163/71 H 05/03/23 10:45 70 150/69 05/03/23 10:30 70 156/68 H 05/03/23 10:15 70 155/75 H 05/03/23 10:00 72 147/65 H 05/03/23 09:45 71 153/57 H 05/03/23 09:30 71 164/75 H 05/03/23 09:15 72 163/76 H 05/03/23 09:00 72 164/80 H 05/03/23 08:55 72 167/82 H 05/03/23 08:37 98.4 F 72 16 161/75 H 96 05/03/23 05:37 98.8 F 73 16 161/72 H 92 05/03/23 04:00 69 05/03/23 00:00 70 05/02/23 20:00 69 05/02/23 20:37 97.8 F 68 20 166/74 H 91 05/02/23 17:53 74 05/02/23 16:00 68 05/02/23 14:36 97.2 F L 69 18 170/66 H 91 Intake/Output Intake/Output: Intake & Output 04/30/23 05/01/23 05/02/23 05/03/23 23:59 23:59 23:59 23:59 Intake Total 920 600 840 100 Output Total 2000 800 2000 Balance -3701 -200 840 -1900 Meds/Results Medications: Active Medications Generic Name Dose Route Start Last Admin Trade Name Jitendra PRN Reason Stop Dose Admin Allopurinol 100 mg 04/29/23 09:00 05/03/23 13:23 Allopurinol 100 Mg Tablet PO 100 mg DAILY MICHELL Administration Amoxicillin/Clavulanate Potassium 1 tablet 05/01/23 21:00 05/03/23 13:22 Amoxicillin/Clavulanate K 500-125 Mg Tab PO 05/06/23 09:01 1 tablet
--- NOTE | 2023-05-03 12:18 | WPDNEURCNPN ---
Assessment and Plan Assessment and plan (1) Neurological deficit, transient: Code(s): R29.818 - Other symptoms and signs involving the nervous system Status: Acute (2) Panniculitis: Code(s): M79.3 - Panniculitis, unspecified Status: Acute (3) ESRD on hemodialysis: Code(s): N18.6 - End stage renal disease; Z99.2 - Dependence on renal dialysis Status: Acute (4) Urinary tract infection: Code(s): N39.0 - Urinary tract infection, site not specified Status: Acute Plan Kelley Rodriguez is a 73 year old female with a history of ESRD on dialysis, DM, anxiety, diabetic neuropathy, R AKA, GERD, anemia currently admitted for panniculitis and UTI. 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 MRI brain showed old R parietal infarct and possibly old infarcts in bilateral basal ganglia but no acute findings. She still appears to be altered and not at baseline. Suspect likely due to underlying infection and metabolic cause (missed two dialysis sessions). Focal seizure is also a possible cause of the initial event given that she has encephalomalacia on imaging. Could also be stroke recrudescence given the prior strokes and now underlying infections. - Obtain routine EEG - Check B12, TSH, folate Consult date: 05/03/23 HPI: Kelley Rodriguez is a 73 year old female with a history of ESRD on dialysis, DM, anxiety, diabetic neuropathy, R AKA, GERD, anemia who presented due to abdominal wall redness and swelling. She was ultimately diagnosed with panniculitis and UTI during the admission. On 05/01 she had an episode of garbled speech with numbness to the face, unclear which side. The hospitalist also noted some R facial droop, slight weakness in the L cable inspector, but she was AOx3. CT head was done which showed no acute changes. CTA brain/carotid was negative for any significant stenosis. MRI brain showed small old infarct in the R parietal lobe and small old infarcts in the bilateral basal ganglia, but no acute changes. Patient is already on Eliquis 2.5mg BID, but I am not sure why. She takes Lipitor 20mg daily. There is no LDL on file from this year. Her HgbA1c from this admission is 7.4. Per patient's nurse, patient has not been dialyzed in a week (missed two sessions). Her labs are significant for elevated creatinine from baseline, and also uremia (although this does not seem to elevated from baseline). There is no leukocytosis. She is being treated with antibiotics. Per RN, patient is still quite confused and not at her baseline. Her ammonia is negative. Her LFTs are normal as well. Review of Systems Review of Systems: ROS unobtainable: Yes unobtainable due to mental status [facility] Past Medical History Medical History Anxiety and depression Arthritis Benign thyroid cyst Evaluated by ultrasound a couple of years ago per patient report. Cerebrovascular accident Due to embolic event following a shoulder fracture 2016 with chronic mild left-sided weakness. Chronic venous stasis dermatitis of both lower extremities Contusion of ankle, left Diabetic gastroparesis Diabetic neuropathy Diabetic retinopathy of both eyes End-stage renal disease on hemodialysis Previously on peritoneal dialysis. Gastroesophageal reflux disease Gout Grade II diastolic dysfunction Noted on echo on 07/04/2019. EF 55-60%. Hyperlipidemia Hypertension Infarction of liver (07/07/19) Insulin dependent type 2 diabetes mellitus A1c was 8.9% on 09/08/2020. 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 Morbid obesity Osteomyelitis of right foot Osteoporosis Peripheral arterial disease (Unknown) Retinal detachment Shingles Splenic infarct (07/07/19) Venous stasis dermatitis of both lower extremities Surgical History Surgi
--- NOTE | 2023-05-03 13:20 | PC.NURSE ---
Patient returned to unit from dialysis. Administering patients daily meds at this time.
[2023-05-03] MEDS: AMOXICILLIN/CLAVULANATE K 500-125 MG TAB 1 TABLET PO (13:22)
[2023-05-03] MEDS: buPROPion HCL SR (12 HR) 150 MG TAB PO (13:22)
[2023-05-03] MEDS: DOXYCYCLINE HYCLATE 100 MG TABLET PO (13:22)
[2023-05-03] MEDS: CALCIUM ACETATE 667 MG TABLET PO ×2 (13:22→17:52)
[2023-05-03] MEDS: ATORVASTATIN 20 MG TABLET PO (13:22)
[2023-05-03] MEDS: carvediloL 25 MG TABLET PO ×2 (13:23→17:52)
[2023-05-03] MEDS: APIXABAN 2.5 MG TABLET PO ×2 (13:23→17:52)
[2023-05-03] MEDS: allopurinoL 100 MG TABLET PO (13:23)
[2023-05-03] MEDS: PANTOPRAZOLE 40 MG TABLET PO (13:23)
[2023-05-03] MEDS: BETAMETHASONE/CLOTRIMAZOLE CR 15 GM TUBE 1 APPLIC TOPICAL ×2 (13:24→19:48)
[2023-05-03] MEDS: TRIAMCINOLONE ACET 0.1% CREAM 80 GM TUBE 1 APPLIC TOPICAL (13:24)
[2023-05-03] MEDS: TOLNAFTATE 1% POWDER 45 GM BTL 1 APPLIC TOPICAL ×2 (13:24→19:49)
[2023-05-03] MEDS: MUPIROCIN 2% OINT 22 GM TUBE 1 APPLIC TOPICAL (13:24)
[2023-05-03 13:43] LABS: Glucose Point of Care 101 mg/dl (65-105)
[2023-05-03] MEDS: ACETAMINOPHEN 325 MG TABLET 650 MG PO (15:54)
[2023-05-03 16:48] LABS: Glucose Point of Care 129 mg/dl (65-105)
--- NOTE | 2023-05-03 18:40 | PC.NURSE ---
This nurse has reviewed the charting assessment for this pt.
[2023-05-03 18:48] LABS: Procalcitonin 0.3 ng/mL
[2023-05-03 19:43] LABS: Glucose Point of Care 126 mg/dl (65-105)
[2023-05-03 20:34] LABS: Alveolar/Arterial O2 Gradient 61.1 mmHg; Base Excess ABG 1.9 mEq/l (+/-2.0); Carboxyhemoglobin 0.8 % THb (0-2.0); Fractional Inspired Oxygen 28 %; Methemoglobin ABG 0.3 %THb (0-1.5); Oxygen Content ABG 16.1 %vol (16.0-22.0); Oxygen Saturation ABG 97.4 % (95.0-100.0); Oxyhemoglobin 95.3 % THb (90.0-100.0); PCO2 ABG 38.6 mmHg (35.0-45.0); PO2 FiO2 Ratio Arterial Blood 3.32 %; Reduced Hemoglobin 3.6 %THb (0-5.0); Total Hemoglobin 11.9 g/dL (12.0-18.0); pH ABG 7.446 (7.350-7.450)
[2023-05-03 20:36] LABS: Device NASAL CANNULA; Modified Allen's Test Pass; Site Drawn RIGHT RADIAL
[2023-05-04] VITALS (9 sets, daily range): BP systolic 128–154; BP diastolic 50–62; PULSE 63–68; RESP 18; TEMP 36.3–36.6; O2SAT 98–100
[2023-05-04 06:36] LABS: Basophils Absolute Auto 0.1 K/mm3 (0.0-0.1); Basophils Percent Auto 0.6 % (0.2-1.2); Eosinophils Absolute Auto 0.1 K/mm3 (0-0.3); Eosinophils Percent Auto 0.8 % (0-4.4); Hemoglobin 11.4 g/dL (12.0-15.0); Immature Granulocyte Absolute 0.07 K/mm3 (0.00-0.031); Immature Granulocyte Percent A 0.8 % (0-0.5); Lymphocytes Absolute Auto 0.62 K/mm3 (0.9-3.2); Lymphocytes Percent Auto 7.1 % (18.3-44.2); Mean Corpuscular HGB Conc 31.7 g/dl (32-36); Mean Corpuscular Hemoglobin 32.8 pg (26-34); Mean Corpuscular Volume 103.4 fl (80-100); Mean Platelet Volume 10.5 fl (7.4-10.4); Monocytes Absolute Auto 0.6 K/mm3 (0.1-0.6); Monocytes Percent Auto 6.7 % (2.6-8.5); Neutrophils Absolute Auto 7.4 K/mm3 (1.3-6.7); Platelet Count Result 179 k/mm3 (150-375); Red Blood Count 3.48 M/mm3 (4.2-5.4); Red Cell Distribution Width 17.3 % (11.5-14.5); White Blood Count 8.8 K/mm3 (4.5-10.0)
[2023-05-04 06:42] LABS: Alanine Aminotransferase 16 U/L (6-35); Albumin Level 2.9 g/dL (3.5-5.1); Alkaline Phosphatase 133 U/L (38-126); Anion Gap 4 mmol/L (8-16); Aspartate Amino Transferase 24 U/L (14-36); Bilirubin,Total 1.3 mg/dL (0.2-1.3); Blood Urea Nitrogen 23 mg/dL (7-17); Calcium 8.1 mg/dL (8.4-10.2); Carbon Dioxide 32 mmol/L (22-30); Chloride 99 mmol/L (98-107); Estimated CRCL calculation 10 ml/min; Estimated Glomerular Filt Rate 8; Glucose 96 mg/dL (65-110); Sodium 135 mmol/L (137-145)
--- NOTE | 2023-05-04 08:13 | P.PNNP_ITS ---
Progress Note: A&P Assessment and Plan (1) End-stage renal disease (ESRD): Onset Date: Unknown Code(s): N18.6 - End stage renal disease Status: Chronic Assessment and Plan: * HD was done yesterday. * continue/resume T/T/S outpatient dialysis schedule while hospitalized * Volume status looks okay today. * Potassium and bicarbonate are both okay. (2) Panniculitis: Code(s): M79.3 - Panniculitis, unspecified Status: Acute Assessment and Plan: * as evidenced by exam findings * Blood cultures negative so far. * on Patient is on Augmentin. * local wound care (3) Neurological deficit, transient: Code(s): R29.818 - Other symptoms and signs involving the nervous system Status: Acute Assessment and Plan: * as evidenced by garbled speech and facial numbness (on 05/01/23) * extensive imaging done with no acute findings * Neurology consulted * follow neurological status * PT/OT as tolerated (4) Urinary tract infection: Code(s): N39.0 - Urinary tract infection, site not specified Status: Acute Assessment and Plan: * admission UA highly suggestive * urine culture with Klebsiella * on Augmentin (5) Hypertension: Code(s): I10 - Essential (primary) hypertension Status: Chronic Assessment and Plan: * systolic runs between 120 and 160. * The patient is On carvedilol 25 twice a day. * Will add lisinopril (6) Anemia: Code(s): D64.9 - Anemia, unspecified Status: Chronic Assessment and Plan: * H/H in range for a dialysis patient * Epogen with HD * follow trend of H/H (7) Insulin dependent type 2 diabetes mellitus: Code(s): E11.9 - Type 2 diabetes mellitus without complications; Z79.4 - [facility] (current) use of insulin Status: Chronic Assessment and Plan: * follow accu-cheks * glycemic control per hospitalists Will continue to follow. Subjective Date/time seen: 05/04/23 08:13 Interval history: Kelley is feeling okay today. She had dialysis yesterday and had about 2L off. Exam Narrative: General: WD/WN female in NAD Heart: normal S1 and S2; no rub Lungs: clear to auscultation Abdomen: soft, nontender, nondistended, positive bowel sounds Extremities: no cyanosis or clubbing; no edema Skin: reducing erythema noted on pannus Objective Data Vital Signs Vital Signs: Vital Signs - 24 hr 05/03/23 08:37 05/03/23 08:55 05/03/23 10:45 Temperature 98.4 F Pulse Rate 72 72 70 Respiratory Rate 16 Blood Pressure 161/75 H 167/82 H 150/69 H Pulse Oximetry 96 Oxygen Delivery Oxygen Flow Rate 05/03/23 11:00 05/03/23 11:15 05/03/23 11:45 Temperature Pulse Rate 70 71 65 Respiratory Rate Blood Pressure 163/71 H 144/68 H 147/65 H Pulse Oximetry Oxygen Delivery Oxygen Flow Rate 05/03/23 12:00 05/03/23 12:15 05/03/23 12:27 Temperature Pulse Rate 65 65 70 Respiratory Rate Blood Pressure 140/57 L 157/63 H 153/54 H Pulse Oximetry Oxygen Delivery Oxygen Flow Rate 05/03/23 12:41 05/03/23 09:00 05/03/23 0
--- NOTE | 2023-05-04 08:13 | PM.PNNEP ---
Progress Note: A&P Assessment and Plan (1) End-stage renal disease (ESRD): Onset Date: Unknown Code(s): N18.6 - End stage renal disease Status: Chronic Assessment and Plan: HD was done yesterday. continue/resume T/T/S outpatient dialysis schedule while hospitalized Volume status looks okay today. Potassium and bicarbonate are both okay. (2) Panniculitis: Code(s): M79.3 - Panniculitis, unspecified Status: Acute Assessment and Plan: as evidenced by exam findings Blood cultures negative so far. on Patient is on Augmentin. local wound care (3) Neurological deficit, transient: Code(s): R29.818 - Other symptoms and signs involving the nervous system Status: Acute Assessment and Plan: as evidenced by garbled speech and facial numbness (on 05/01/23) extensive imaging done with no acute findings Neurology consulted follow neurological status PT/OT as tolerated (4) Urinary tract infection: Code(s): N39.0 - Urinary tract infection, site not specified Status: Acute Assessment and Plan: admission UA highly suggestive urine culture with Klebsiella on Augmentin (5) Hypertension: Code(s): I10 - Essential (primary) hypertension Status: Chronic Assessment and Plan: systolic runs between 120 and 160. The patient is On carvedilol 25 twice a day. 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 Subjective Date/time seen: 05/04/23 08:13 Interval history: Kelley is feeling okay today. She had dialysis yesterday and had about 2L off. Exam Narrative: General: WD/WN female in NAD Heart: normal S1 and S2; no rub Lungs: clear to auscultation Abdomen: soft, nontender, nondistended, positive bowel sounds Extremities: no cyanosis or clubbing; no edema Skin: reducing erythema noted on pannus Objective Data Vital Signs Vital Signs: Vital Signs - 24 hr 05/03/23 08:37 05/03/23 08:55 05/03/23 10:45 Temperature 98.4 F Pulse Rate 72 72 70 Respiratory Rate 16 Blood Pressure 161/75 H 167/82 H 150/69 H Pulse Oximetry 96 Oxygen Delivery Oxygen Flow Rate 05/03/23 11:00 05/03/23 11:15 05/03/23 11:45 Temperature Pulse Rate 70 71 65 Respiratory Rate Blood Pressure 163/71 H 144/68 H 147/65 H Pulse Oximetry Oxygen Delivery Oxygen Flow Rate 05/03/23 12:00 05/03/23 12:15 05/03/23 12:27 Temperature Pulse Rate 65 65 70 Respiratory Rate Blood Pressure 140/57 L 157/63 H 153/54 H Pulse Oximetry Oxygen Delivery Oxygen Flow Rate 05/03/23 12:41 05/03/23 09:00 05/03/23 09:15 Temperature 98.8 F Pulse Rate 66 72 72 Respiratory Rate 16 Blood Pressure 152/68 H 164/80 H 163/76 H Pulse Oximetry 96 Oxygen Delivery Oxygen Flow Rate 05/03/23 09:30 05/03/23 09:45 05/03/23 10:00 Temperature Pulse Rate 71 71 72 Respiratory Rate Blood Pressure 164/75 H 153/57 H 147/65 H Pulse Oximetry Oxygen Delivery Oxygen Flow Rate 05/03/23 10:15 05/03/23 10:30 05/03/23 11:30 Temperature Pulse Rate 70 70 65 Respiratory Rate Blood Pressure 155/75 H 156/68 H 151/74 H Pulse Oximetry Oxygen Delivery Oxygen Flow Rate 05/03/23 12:00 05/03/23 13:23 05/03/23 16:08 Temperature 98.5 F Pulse Rate 66 66 72 Respiratory Rate 16 Blood Pressure 160/48 H Pulse Oximetry 100 Oxygen Delivery Oxygen Flow Rate 05/03/23 16:00
--- NOTE | 2023-05-04 09:30 | PM.EVENT ---
Event Note Event Note Event Note: Nursing staff called me around 22:00 on the 03 of May to evaluate the patient prior increased altered mental status. An ABG was performed which did demonstrate normal results. The patient would arouse to verbal stimuli but was somnolent. She would follow simple commands but had intermittent slurred speech. The patient had had recent CT of the head and MRI of the brain. Overall patient's picture. To be consistent with encephalopathy. The there was no localizing neurologic deficits. Pupils were equal and reactive. Nursing staff reported the patient was pocketing pills in her mouth. I told nursing staff to hold patient's medications for the night. Will re-evaluate patient in an hour to an monitor neuro status closely. Symptoms do not seem consistent with acute stroke or seizure activity. Otherwise patient remains hemodynamically stable. Remainder of physical exam is stable compared to prior. Morning labs had already been ordered. 30 minutes was spent in critical care activities. Due to a high probability of clinically significant, life threatening deterioration, the patient required my highest level of preparedness to intervene emergently and I personally spent this critical care time directly and personally managing the patient. This critical care time included obtaining a history; examining the patient; pulse oximetry; ordering and review of studies; arranging urgent treatment with development of a management plan; evaluation of patient's response to treatment; frequent reassessment; and discussions with other providers. It was exclusive of separately billable procedures and treating other patients and teaching time. Please see Assessment and Plan section and the rest of the note for further information on patient assessment and treatment.
[2023-05-04] MEDS: TOLNAFTATE 1% POWDER 45 GM BTL 1 APPLIC TOPICAL ×2 (09:45→20:22)
[2023-05-04] MEDS: BETAMETHASONE/CLOTRIMAZOLE CR 15 GM TUBE 1 APPLIC TOPICAL ×2 (09:45→20:23)
[2023-05-04] MEDS: TRIAMCINOLONE ACET 0.1% CREAM 80 GM TUBE 1 APPLIC TOPICAL ×2 (09:46→20:23)
[2023-05-04] MEDS: MUPIROCIN 2% OINT 22 GM TUBE 1 APPLIC TOPICAL (09:46)
--- NOTE | 2023-05-04 09:55 | WPDNEUROPN ---
Progress Note: A&P Assessment and Plan (1) Acute encephalopathy: Code(s): G93.40 - Encephalopathy, unspecified Status: Acute (2) ESRD on hemodialysis: Code(s): N18.6 - End stage renal disease; Z99.2 - Dependence on renal dialysis Status: Acute (3) Urinary tract infection: Code(s): N39.0 - Urinary tract infection, site not specified Status: Acute Plan Kelley Rodriguez is a 73 year old female with a history of ESRD on dialysis, DM, anxiety, diabetic neuropathy, R AKA, GERD, anemia currently admitted for panniculitis and UTI. 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 MRI brain showed old R parietal infarct and possibly old infarcts in bilateral basal ganglia but no acute findings. She appears to be at her baseline now. Suspect likely due to underlying infection and metabolic cause (missed two dialysis sessions). Focal seizure is also a possible cause of the initial event given that she has encephalomalacia on imaging. Could also be stroke recrudescence given the prior strokes and now underlying infections. Symptoms seemed to improve after discontinuation of Seroquel, so is also a possibly cause for the acute change in mentation. - Obtain routine EEG - Check B12, TSH, folate Subjective Date/time seen: 05/04/23 09:55 Interval history: Kelley Rodriguez is a 73 year old female with a history of ESRD on dialysis, DM, anxiety, diabetic neuropathy, R AKA, GERD, anemia who presented due to abdominal wall redness and swelling. She was ultimately diagnosed with panniculitis and UTI during the admission. On 05/01 she had an episode of garbled speech with numbness to the face, unclear which side. The hospitalist also noted some R facial droop, slight weakness in the L adolescent counselor, but she was AOx3. CT head was done which showed no acute changes. CTA brain/carotid was negative for any significant stenosis. MRI brain showed small old infarct in the R parietal lobe and small old infarcts in the bilateral basal ganglia, but no acute changes. Patient is already on Eliquis 2.5mg BID, but I am not sure why. She takes Lipitor 20mg daily. There is no LDL on file from this year. Her HgbA1c from this admission is 7.4. Per patient's nurse, patient has not been dialyzed in a week (missed two sessions). Her labs are significant for elevated creatinine from baseline, and also uremia (although this does not seem to elevated from baseline). There is no leukocytosis. She is being treated with antibiotics. Per RN, patient is still quite confused and not at her baseline. Her ammonia is negative. Her LFTs are normal as well. Last night, per physical therapy technician's; note, patient had increased altered mental status. ABC was normal. She would follow simple commands but had intermittent slurred speech. Symptoms thought to be due to encephalopathy. She did not note any focal deficits. Per chart review, patient was pocketing pills in her mouth. Her medications were held for the night. No additional testing was done at the time. Renal function improved today. She was dialyzed yesterday. Patient feeling much better today. Her releative at bedside said that prior to this admission patient was prescribed Seroquel, which she took only once because it made her quite altered. She had been receiving the Seroquel during this admission, and it was discontinued yesterday. Relative and patient seem to think that it was the medication that was causing the acute confusion. Review of Systems Review of Systems: All systems reviewed & are unremarkable except as noted in HPI and below Exam Const: General: comfortable and no acute distress HENMT: Mouth: Yes moist mucous membranes Eyes: Pupils: Equal, round and reactive pupils present Resp: Effort & Inspection: normal respiratory effort Skin: General skin exam: normal color Neuro: Other: Awake, laert, oriented to self, and year, she thought she was at [facility] but with prompting
--- NOTE | 2023-05-04 10:05 | P.PNIM_ITS ---
Progress Note: A&P Assessment and Plan (1) Neurological deficit, transient: Code(s): R29.818 - Other symptoms and signs involving the nervous system Status: Acute (2) Panniculitis: Code(s): M79.3 - Panniculitis, unspecified Status: Acute (3) ESRD on hemodialysis: Code(s): N18.6 - End stage renal disease; Z99.2 - Dependence on renal dialysis Status: Acute (4) Diabetes: Qualifiers: Chronic kidney disease stage: on chronic dialysis Diabetes mellitus complication detail: with chronic kidney disease Diabetes mellitus complication status: with kidney complications Diabetes mellitus detention insulin use: with detention use Diabetes mellitus type: type 2 Qualified Code(s): E11.22 - Type 2 diabetes mellitus with diabetic chronic kidney disease; N18.6 - End stage renal disease; Z79.4 - correction (current) use of insulin; Z99.2 - Dependence on renal dialysis Code(s): E11.9 - Type 2 diabetes mellitus without complications Status: Acute (5) Acute encephalopathy: Code(s): G93.40 - Encephalopathy, unspecified Status: Acute Plan (1) Panniculitis: ?Code(s): M79.3 - Panniculitis, unspecified ?Status:?Acute ?Assessment and Plan: 04/29/23: * Does not meet Sepsis criteria. * Visible on CT scan. * Consistent with elevated CRP and Sed Rate * Continue Vancomycin therapy * Tolnaftate powder and Betamethasone cream topically to affected areas topically. * Trend labs and VS. * PRN pain meds. 04/30/23: * Blood cultures showing no growth to date * Continue with current treatment plan 05/01/23: * Blood culture showing no growth today * Continue with current treatment plan 05/02/23: * Blood cultures still showing no growth on preliminary 05/03: Patient has some doxycycline 100 mg q.12 hours p.o., follow-up procalcitonin (2) Neurological deficit present: ?Code(s): R29.818 - Other symptoms and signs involving the nervous system ?Status:?Acute ?Assessment and Plan: 05/01/2023: * Patient found to have garbled speech and she reports numbness to her face ye sterday * Head CT negative for any acute intracranial process * Head and neck CTA showing 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 * Neurology consulted * Continue neuro checks * PT and OT to eval 05/02/23: * Will order speech eval today * Neurology following * Continue neuro checks * Patient is more alert today, no neuro deficits at this time Acute encephalopathy 05/03 When I saw exam patient, patient was somnolent, patient was able to move all extremities, not oriented x3 Likely secondary to polypharmacy, patient has psychiatric disorders, on multiple medications including BuSpar, Seroquel, trazodone, patient is also on Benadryl, morphine and Dilaudid lorazepam pain IV needed Hold medications with side effects of sedation Neuro check 05/04: After holding the medications mentioned above yesterday, patient is alert, oriented x3 today. Although patient complains weakness follow up arm, but patient still can hold lef
--- NOTE | 2023-05-04 10:05 | PM.IMPN ---
Progress Note: A&P Assessment and Plan (1) Neurological deficit, transient: Code(s): R29.818 - Other symptoms and signs involving the nervous system Status: Acute (2) Panniculitis: Code(s): M79.3 - Panniculitis, unspecified Status: Acute (3) ESRD on hemodialysis: Code(s): N18.6 - End stage renal disease; Z99.2 - Dependence on renal dialysis Status: Acute (4) Diabetes: Qualifiers: Chronic kidney disease stage: on chronic dialysis Diabetes mellitus complication detail: with chronic kidney disease Diabetes mellitus complication status: with kidney complications Diabetes mellitus usp insulin use: with usp use Diabetes mellitus type: type 2 Qualified Code(s): E11.22 - Type 2 diabetes mellitus with diabetic chronic kidney disease; N18.6 - End stage renal disease; Z79.4 - [facility] (current) use of insulin; Z99.2 - Dependence on renal dialysis Code(s): E11.9 - Type 2 diabetes mellitus without complications Status: Acute (5) Acute encephalopathy: Code(s): G93.40 - Encephalopathy, unspecified Status: Acute Plan (1) Panniculitis: ?Code(s): M79.3 - Panniculitis, unspecified ?Status:?Acute ?Assessment and Plan: 04/29/23: Does not meet Sepsis criteria. Visible on CT scan. Consistent with elevated CRP and Sed Rate Continue Vancomycin therapy Tolnaftate powder and Betamethasone cream topically to affected areas topically. Trend labs and VS. PRN pain meds. 04/30/23: Blood cultures showing no growth to date Continue with current treatment plan 05/01/23: Blood culture showing no growth today Continue with current treatment plan 05/02/23: Blood cultures still showing no growth on preliminary 05/03: Patient has some doxycycline 100 mg q.12 hours p.o., follow-up procalcitonin (2) Neurological deficit present: ?Code(s): R29.818 - Other symptoms and signs involving the nervous system ?Status:?Acute ?Assessment and Plan: 05/01/2023: Patient found to have garbled speech and she reports numbness to her face yesterday Head CT negative for any acute intracranial process Head and neck 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 Neurology consulted Continue neuro checks PT and OT to eval 05/02/23: Will order speech eval today Neurology following Continue neuro checks Patient is more alert today, no neuro deficits at this time Acute encephalopathy 05/03 When I saw exam patient, patient was somnolent, patient was able to move all extremities, not oriented x3 Likely secondary to polypharmacy, patient has psychiatric disorders, on multiple medications including BuSpar, Seroquel, trazodone, patient is also on Benadryl, morphine and Dilaudid lorazepam pain IV needed Hold medications with side effects of sedation Neuro check 05/04: After holding the medications mentioned above yesterday, patient is alert, oriented x3 today. Although patient complains weakness follow up arm, but patient still can hold left arm up. Recent brain MRI shows no acute intracranial process on April 30 (3) ESRD on hemodialysis: ?Code(s): N18.6 - End stage renal disease; Z99.2 - Dependence on renal dialysis ?Status:?Acute ?Assessment and Plan: 04/29/23: ?HD, consult Nephrology for ordering and management. Pt has missed two recent sittings. 04/30/23: HD today Nephrology following 05/01/23: She had HD
[2023-05-04] MEDS: AMOXICILLIN/CLAVULANATE K 500-125 MG TAB 1 TABLET PO ×2 (11:03→20:22)
[2023-05-04] MEDS: carvediloL 25 MG TABLET PO ×2 (11:03→17:35)
[2023-05-04] MEDS: allopurinoL 100 MG TABLET PO (11:03)
[2023-05-04] MEDS: PANTOPRAZOLE 40 MG TABLET PO (11:03)
[2023-05-04] MEDS: DOXYCYCLINE HYCLATE 100 MG TABLET PO ×2 (11:03→20:22)
[2023-05-04] MEDS: APIXABAN 2.5 MG TABLET PO ×2 (11:03→17:37)
[2023-05-04] MEDS: CALCIUM ACETATE 667 MG TABLET PO ×2 (11:03→18:13)
--- NOTE | 2023-05-04 11:03 | PCSTNOTE ---
Please refer to the Modified Barium Swallow Evaluation in the EMR.
[2023-05-04] MEDS: ATORVASTATIN 20 MG TABLET PO (11:04)
[2023-05-04 12:03] LABS: Glucose Point of Care 103 mg/dl (65-105)
[2023-05-04 17:23] LABS: Glucose Point of Care 155 mg/dl (65-105)
[2023-05-04] MEDS: lisinopriL 10 MG TABLET PO (17:35)
[2023-05-04 17:46] LABS: Glucose Point of Care 183 mg/dl (65-105)
[2023-05-04 20:42] LABS: Glucose Point of Care 204 mg/dl (65-105)
[2023-05-05] VITALS (23 sets, daily range): BP systolic 119–178; BP diastolic 21–72; PULSE 58–67; RESP 16–18; TEMP 35.4–37; O2SAT 92–97
[2023-05-05 06:20] LABS: Alanine Aminotransferase 19 U/L (6-35); Albumin Level 3.2 g/dL (3.5-5.1); Alkaline Phosphatase 153 U/L (38-126); Anion Gap 9 mmol/L (8-16); Aspartate Amino Transferase 29 U/L (14-36); Bilirubin,Total 1.4 mg/dL (0.2-1.3); Blood Urea Nitrogen 30 mg/dL (7-17); Calcium 8.3 mg/dL (8.4-10.2); Carbon Dioxide 28 mmol/L (22-30); Chloride 96 mmol/L (98-107); Estimated CRCL calculation 8 ml/min; Estimated Glomerular Filt Rate 6; Glucose 134 mg/dL (65-110); Phosphorus 4.7 mg/dL (2.5-4.5); Potassium 4.3 mmol/L (3.4-5.0); Sodium 133 mmol/L (137-145)
[2023-05-05 06:25] LABS: Basophils Percent Auto 0.4 % (0.2-1.2); Eosinophils Absolute Auto 0.1 K/mm3 (0-0.3); Eosinophils Percent Auto 1.4 % (0-4.4); Hematocrit 36.9 % (37.0-47.0); Hemoglobin 11.4 g/dL (12.0-15.0); Immature Granulocyte Absolute 0.07 K/mm3 (0.00-0.031); Immature Granulocyte Percent A 0.7 % (0-0.5); Lymphocytes Absolute Auto 0.62 K/mm3 (0.9-3.2); Lymphocytes Percent Auto 6.5 % (18.3-44.2); Mean Corpuscular HGB Conc 30.9 g/dl (32-36); Mean Corpuscular Hemoglobin 32.1 pg (26-34); Mean Corpuscular Volume 103.9 fl (80-100); Mean Platelet Volume 10.6 fl (7.4-10.4); Monocytes Absolute Auto 0.5 K/mm3 (0.1-0.6); Monocytes Percent Auto 5.6 % (2.6-8.5); Neutrophils Absolute Auto 8.1 K/mm3 (1.3-6.7); Neutrophils Percent Auto 85.4 % (45.5-73.1); Platelet Count Result 167 k/mm3 (150-375); Red Blood Count 3.55 M/mm3 (4.2-5.4); Red Cell Distribution Width 17.1 % (11.5-14.5); White Blood Count 9.5 K/mm3 (4.5-10.0)
[2023-05-05 08:26] LABS: Glucose Point of Care 133 mg/dl (65-105)
--- NOTE | 2023-05-05 10:43 | P.PNNP_ITS ---
Progress Note: A&P Assessment and Plan (1) End-stage renal disease (ESRD): Onset Date: Unknown Code(s): N18.6 - End stage renal disease Status: Chronic Assessment and Plan: * HD Is underway. * Volume status looks pretty good. He does have a high blood pressure so will take some fluid off. (2) Panniculitis: Code(s): M79.3 - Panniculitis, unspecified Status: Acute Assessment and Plan: * as evidenced by exam findings * Blood cultures negative so far. * Patient is on Augmentin. * local wound care (3) Neurological deficit, transient: Code(s): R29.818 - Other symptoms and signs involving the nervous system Status: Acute Assessment and Plan: * as evidenced by garbled speech and facial numbness (on 05/01/23) * extensive imaging done with no acute findings * Neurology consulted * follow neurological status * PT/OT as tolerated * Speech is normal now (4) Urinary tract infection: Code(s): N39.0 - Urinary tract infection, site not specified Status: Acute Assessment and Plan: * admission UA highly suggestive * urine culture with Klebsiella * on Augmentin (5) Hypertension: Code(s): I10 - Essential (primary) hypertension Status: Chronic Assessment and Plan: * systolic runs between 120 and 160. * The patient is On carvedilol 25 twice a day. * now on lisinopril. 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 She was seen at 9:45 a.m.. Blood pressure is doing well. She insisted on only a 3hour treatment. Exam Narrative: General: WD/WN female in NAD Heart: normal S1 and S2; no rub Lungs: clear to auscultation Abdomen: soft, nontender, nondistended, positive bowel sounds Extremities: no cyanosis or clubbing; no edema Skin: reducing erythema noted on pannus Objective Data Vital Signs Vital Signs: Vital Signs - 24 hr 05/04/23 11:03 05/04/23 15:16 05/04/23 17:35 Temperature Pulse Rate 64 64 68 Respiratory Rate 18 Blood Pressure 154/62 H Pulse Oximetry 100 Oxygen Delivery Oxygen Flow Rate 05/04/23 20:20 05/04/23 20:00 05/05/23 05:34 Temperature 97.8 F 97.2 F L Pulse Rate 64 61 Respiratory Rate 18 18 Blood Pressure 128/56 L 119/48 L Pulse Oximetry 98 98 96 Oxygen Delivery Nasal Cannula Oxygen Flow Rate 1 05/05/23 08:36 05/05/23 08:27 05/05/23 08:30 Temperature 97.4 F L Pulse Rate 59 L 62 Respiratory Rate 16 Blood Pressure 158/51 H 148/21 H Pulse Oximetry 97 Oxygen Delivery Oxygen Flow Rate 2
--- NOTE | 2023-05-05 10:43 | PM.PNNEP ---
Progress Note: A&P Assessment and Plan (1) End-stage renal disease (ESRD): Onset Date: Unknown Code(s): N18.6 - End stage renal disease Status: Chronic Assessment and Plan: HD Is underway. Volume status looks pretty good. He does have a high blood pressure so will take some fluid off. (2) Panniculitis: Code(s): M79.3 - Panniculitis, unspecified Status: Acute Assessment and Plan: as evidenced by exam findings Blood cultures negative so far. Patient is on Augmentin. local wound care (3) Neurological deficit, transient: Code(s): R29.818 - Other symptoms and signs involving the nervous system Status: Acute Assessment and Plan: as evidenced by garbled speech and facial numbness (on 05/01/23) extensive imaging done with no acute findings Neurology consulted follow neurological status PT/OT as tolerated Speech is normal now (4) Urinary tract infection: Code(s): N39.0 - Urinary tract infection, site not specified Status: Acute Assessment and Plan: admission UA highly suggestive urine culture with Klebsiella on Augmentin (5) Hypertension: Code(s): I10 - Essential (primary) hypertension Status: Chronic Assessment and Plan: systolic runs between 120 and 160. The patient is On carvedilol 25 twice a day. now on lisinopril. Will see how this does over the next few days (6) Anemia: Code(s): D64.9 - Anemia, unspecified Status: Chronic Assessment and Plan: H/H in range for a dialysis patient Epogen with HD follow trend of H/H (7) Insulin dependent type 2 diabetes mellitus: Code(s): E11.9 - Type 2 diabetes mellitus without complications; Z79.4 - [facility] (current) use of insulin Status: Chronic Assessment and Plan: follow accu-cheks glycemic control per hospitalists Subjective Date/time seen: 05/05/23 10:43 Interval history: Kelley is on dialysis and tolerating it well. She was seen at 9:45 a.m.. Blood pressure is doing well. She insisted on only a 3hour treatment. Exam Narrative: General: WD/WN female in NAD Heart: normal S1 and S2; no rub Lungs: clear to auscultation Abdomen: soft, nontender, nondistended, positive bowel sounds Extremities: no cyanosis or clubbing; no edema Skin: reducing erythema noted on pannus Objective Data Vital Signs Vital Signs: Vital Signs - 24 hr 05/04/23 11:03 05/04/23 15:16 05/04/23 17:35 Temperature Pulse Rate 64 64 68 Respiratory Rate 18 Blood Pressure 154/62 H Pulse Oximetry 100 Oxygen Delivery Oxygen Flow Rate 05/04/23 20:20 05/04/23 20:00 05/05/23 05:34 Temperature 97.8 F 97.2 F L Pulse Rate 64 61 Respiratory Rate 18 18 Blood Pressure 128/56 L 119/48 L Pulse Oximetry 98 98 96 Oxygen Delivery Nasal Cannula Oxygen Flow Rate 1 05/05/23 08:36 05/05/23 08:27 05/05/23 08:30 Temperature 97.4 F L Pulse Rate 59 L 62 Respiratory Rate 16 Blood Pressure 158/51 H 148/21 H Pulse Oximetry 97 Oxygen Delivery Oxygen Flow Rate 2 05/05/23 09:15 05/05/23 09:30 05/05/23 09:00 Temperature Pulse Rate 61 59 L 60 Respiratory Rate Blood Pressure 166/47 H 152/57 H 174/49 H Pulse Oximetry Oxygen Delivery Oxygen Flow Rate 05/05/23 09:45 05/05/23 10:00 Temperature Pulse Rate 60 59 L Respiratory Rate Blood Pressure 159/72 H 178/66 H Pulse Oximetry Oxygen Delivery Oxygen Flow Rate Intake/Output Intake/Output: Intake & Output 05/02/23 05/03/23 05/04/23 05/05/23 23:59 23:59 23:59 23:59 Intake Total 840 100 720 250 Output Total 2000 0 Balance 840 -1900 720 250 Meds/Results Medications: Active Medications Generic Name Dose Route Start Last Admin Trade Name Freq PRN Reason Stop Dose Admin Acetaminophen 650 mg 05/03/23 15:35 05/03/23 15:54 Acetaminophen 325 Mg T
[2023-05-05] MEDS: AMOXICILLIN/CLAVULANATE K 500-125 MG TAB 1 TABLET PO ×2 (12:20→20:04)
[2023-05-05] MEDS: allopurinoL 100 MG TABLET PO (12:20)
[2023-05-05] MEDS: CALCIUM ACETATE 667 MG TABLET PO ×2 (12:20→16:41)
[2023-05-05] MEDS: DOXYCYCLINE HYCLATE 100 MG TABLET PO ×2 (12:20→20:04)
[2023-05-05] MEDS: PANTOPRAZOLE 40 MG TABLET PO (12:21)
[2023-05-05] MEDS: carvediloL 25 MG TABLET PO ×2 (12:21→16:41)
[2023-05-05] MEDS: APIXABAN 2.5 MG TABLET PO ×2 (12:21→16:41)
[2023-05-05] MEDS: ATORVASTATIN 20 MG TABLET PO (12:21)
[2023-05-05 12:23] LABS: Glucose Point of Care 99 mg/dl (65-105)
[2023-05-05] MEDS: MUPIROCIN 2% OINT 22 GM TUBE 1 APPLIC TOPICAL (12:23)
[2023-05-05] MEDS: TOLNAFTATE 1% POWDER 45 GM BTL 1 APPLIC TOPICAL ×2 (12:23→20:05)
[2023-05-05] MEDS: BETAMETHASONE/CLOTRIMAZOLE CR 15 GM TUBE 1 APPLIC TOPICAL ×2 (12:23→20:05)
--- NOTE | 2023-05-05 13:02 | WPDNEUROLOGY ---
Neurology EEG Report General Information Date of Study: 05/04/23 TEST Routine EEG DIAGNOSIS Encephalopathy CONDITION OF RECORDING Awake, drowsy EEG NUMBER [id number] CLINICAL HISTORY Patient had an episode during this admission where she had garbled speech and altered mental status. Her psychotropic medications were held and her mentation improved. She has a history of ESRD. EEG DESCRIPTION During the awake state with eyes closed the background consists of 8Hz posterior dominant rhythm which attenuates appropriately with eye opening. The recording is continuous. There is a well developed anterior-posterior gradient. No significant asymmetries of background activities are noted. At times the background is slower in theta range biposteriorly, and occasionally in the delta range biposteriorly. There are also intermittent triphasic waves noted throughout the recording. With drowsiness there is waxing and waning of the dominant rhythm with eventual replacement by a mixture of beta, alpha, and theta activity. Patient does not enter stage II sleep. There are no epileptiform discharges or seizures during this recording. Hyperventilation and photic stimulation were not performed. IMPRESSION This is an abnormal routine EEG due to the presence of background slowing posteriorly (symmetrically) as well as the presence of triphasic waves. These findings can be seen in the setting of encephalopathy due to metabolic etiology. Clinical correlation is recommended.
[2023-05-05 16:21] LABS: Procalcitonin 0.9 ng/mL
[2023-05-05] MEDS: lisinopriL 10 MG TABLET PO (17:18)
[2023-05-05 17:27] LABS: Glucose Point of Care 197 mg/dl (65-105)
--- NOTE | 2023-05-05 17:31 | P.PNIM_ITS ---
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: with senior living use Diabetes mellitus complication status: with kidney complications Diabetes mellitus complication detail: with chronic kidney disease Chronic kidney disease stage: on chronic dialysis Qualified Code(s): E11.22 - Type 2 diabetes mellitus with diabetic chronic kidney disease; N18.6 - End stage renal disease; 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 * Visible on CT scan. * Consistent with elevated CRP and Sed Rate * Continue Vancomycin therapy * Tolnaftate powder and Betamethasone cream topically to affected areas topically. * Trend labs and VS. * PRN pain meds. 04/30/23: * Blood cultures showing no growth to date * Continue with current treatment plan 05/01/23: * Blood culture showing no growth today * Continue with current treatment plan 05/02/23: * Blood cultures still showing no growth on preliminary 05/03: Patient has some doxycycline 100 mg q.12 hours p.o., follow-up procalcitonin (2) Neurological deficit present: ?Code(s): R29.818 - Other symptoms and signs involving the nervous system ?Status:?Acute ?Assessment and Plan: 05/01/2023: * Patient found to have garbled speech and she reports numbness to her face yesterday * Head CT negative for any acute intracranial process * Head and neck CTA showing old infarcts in the right occipital lobe and left b maggi ganglia, age related changes, no aneurysm, no stenosis * Venous Dopplers were done on bilateral lower extremity which did not show any DVT * There was notable swelling to the left arm where she has her AV fistula and had a venous Doppler on that as well which was negative for any DVT * Brain MRI was negative for any acute intracranial process or evident of any abnormal enhancing lesions although sensitivity for small enhancing lesions is decreased by motion artifact, age-related changes again seen. * Neurology consulted * Continue neuro checks * PT and OT to eval 05/02/23: * Will order speech eval today * Neurology following * Continue neuro checks * Patient is more alert today, no neuro deficits at this time Acute encephalopathy. improved 05/03 When I saw exam patient, patient was somnolent, patient was able to move all extremities, not oriented x3 Likely secondary to polypharmacy, patient has psychiatric disorders, on multiple medications including BuSpar, Seroquel, trazodone, patient is also on Benadryl, morphine and Dilaudid lorazepam pain IV needed Hold medications with side effects of sedation Neuro check 05/04: After holding the medications mentioned above yesterday, patient is alert, oriented x3 today. Although patient complains weakness follow up arm, but patient still
--- NOTE | 2023-05-05 17:31 | PM.IMPN ---
Progress Note: A&P Assessment and Plan (1) Neurological deficit, transient: Code(s): R29.818 - Other symptoms and signs involving the nervous system Status: Acute (2) Panniculitis: Code(s): M79.3 - Panniculitis, unspecified Status: Acute (3) ESRD on hemodialysis: Code(s): N18.6 - End stage renal disease; Z99.2 - Dependence on renal dialysis Status: Acute (4) Diabetes: Qualifiers: Diabetes mellitus type: type 2 Diabetes mellitus shelter insulin use: with shelter use Diabetes mellitus complication status: with kidney complications Diabetes mellitus complication detail: with chronic kidney disease Chronic kidney disease stage: on chronic dialysis Qualified Code(s): E11.22 - Type 2 diabetes mellitus with diabetic chronic kidney disease; N18.6 - End stage renal disease; Z79.4 - retirement (current) use of insulin; Z99.2 - Dependence on renal dialysis Code(s): E11.9 - Type 2 diabetes mellitus without complications Status: Acute (5) Acute encephalopathy: Code(s): G93.40 - Encephalopathy, unspecified Status: Acute Plan (1) Panniculitis: ?Code(s): M79.3 - Panniculitis, unspecified ?Status:?Acute ?Assessment and Plan: 04/29/23: Does not meet Sepsis criteria. Visible on CT scan. Consistent with elevated CRP and Sed Rate Continue Vancomycin therapy Tolnaftate powder and Betamethasone cream topically to affected areas topically. Trend labs and VS. PRN pain meds. 04/30/23: Blood cultures showing no growth to date Continue with current treatment plan 05/01/23: Blood culture showing no growth today Continue with current treatment plan 05/02/23: Blood cultures still showing no growth on preliminary 05/03: Patient has some doxycycline 100 mg q.12 hours p.o., follow-up procalcitonin (2) Neurological deficit present: ?Code(s): R29.818 - Other symptoms and signs involving the nervous system ?Status:?Acute ?Assessment and Plan: 05/01/2023: Patient found to have garbled speech and she reports numbness to her face yesterday Head CT negative for any acute intracranial process Head and neck 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 Neurology consulted Continue neuro checks PT and OT to eval 05/02/23: Will order speech eval today Neurology following Continue neuro checks Patient is more alert today, no neuro deficits at this time Acute encephalopathy. improved 05/03 When I saw exam patient, patient was somnolent, patient was able to move all extremities, not oriented x3 Likely secondary to polypharmacy, patient has psychiatric disorders, on multiple medications including BuSpar, Seroquel, trazodone, patient is also on Benadryl, morphine and Dilaudid lorazepam pain IV needed Hold medications with side effects of sedation Neuro check 05/04: After holding the medications mentioned above yesterday, patient is alert, oriented x3 today. Although patient complains weakness follow up arm, but patient still can hold left arm up. Recent brain MRI shows no acute intracranial process on April 30 (3) ESRD on hemodialysis: ?Code(s): N18.6 - End stage renal disease; Z99.2 - Dependence on renal dialysis ?Status:?Acute ?Assessment and Plan: 04/29/23: ?HD, consult Nephrology for ordering and management. Pt has missed two recent sittings. 04/30/23: HD today Nephrology following 05/01/23: S
[2023-05-05] MEDS: MORPHINE SULFATE (*CRX) 2 MG/ML INJ IV PUSH (20:05)
[2023-05-05] MEDS: TRIAMCINOLONE ACET 0.1% CREAM 80 GM TUBE 1 APPLIC TOPICAL (20:06)
[2023-05-05 20:48] LABS: Glucose Point of Care 207 mg/dl (65-105)
[2023-05-06 05:57] LABS: Basophils Percent Auto 0.4 % (0.2-1.2); Eosinophils Absolute Auto 0.1 K/mm3 (0-0.3); Eosinophils Percent Auto 1.3 % (0-4.4); Hematocrit 37.7 % (37.0-47.0); Hemoglobin 11.2 g/dL (12.0-15.0); Immature Granulocyte Absolute 0.05 K/mm3 (0.00-0.031); Immature Granulocyte Percent A 0.7 % (0-0.5); Lymphocytes Absolute Auto 0.67 K/mm3 (0.9-3.2); Mean Corpuscular HGB Conc 29.7 g/dl (32-36); Mean Corpuscular Hemoglobin 31.7 pg (26-34); Mean Corpuscular Volume 106.8 fl (80-100); Mean Platelet Volume 11.1 fl (7.4-10.4); Monocytes Absolute Auto 0.4 K/mm3 (0.1-0.6); Monocytes Percent Auto 5.7 % (2.6-8.5); Neutrophils Absolute Auto 5.5 K/mm3 (1.3-6.7); Neutrophils Percent Auto 81.9 % (45.5-73.1); Platelet Count Result 142 k/mm3 (150-375); Red Blood Count 3.53 M/mm3 (4.2-5.4); Red Cell Distribution Width 17.2 % (11.5-14.5); White Blood Count 6.7 K/mm3 (4.5-10.0)
[2023-05-06 06:00] VITALS: BP 140/64; PULSE 67; RESP 16; TEMP 36.3; O2SAT 91
[2023-05-06 06:08] LABS: Alanine Aminotransferase 21 U/L (6-35); Alkaline Phosphatase 162 U/L (38-126); Anion Gap 7 mmol/L (8-16); Aspartate Amino Transferase 38 U/L (14-36); Bilirubin,Total 1.3 mg/dL (0.2-1.3); Blood Urea Nitrogen 17 mg/dL (7-17); Calcium 8.1 mg/dL (8.4-10.2); Carbon Dioxide 27 mmol/L (22-30); Chloride 100 mmol/L (98-107); Estimated CRCL calculation 11 ml/min; Estimated Glomerular Filt Rate 9; Glucose 152 mg/dL (65-110); Phosphorus 3.2 mg/dL (2.5-4.5); Potassium 4.3 mmol/L (3.4-5.0); Sodium 134 mmol/L (137-145)
[2023-05-06 07:22] LABS: Hypochromasia 1+ (NORMAL); Platelet Estimate Decreased (Adequate)
[2023-05-06 07:23] LABS: Anisocytosis 1+ (NORMAL); Schistocytes None Seen (NORMAL)
[2023-05-06 07:57] LABS: Glucose Point of Care 138 mg/dl (65-105)
[2023-05-06] MEDS: PANTOPRAZOLE 40 MG TABLET PO (09:24)
[2023-05-06] MEDS: ACETAMINOPHEN 325 MG TABLET 650 MG PO (09:24)
[2023-05-06] MEDS: CALCIUM ACETATE 667 MG TABLET PO ×3 (09:25→17:31)
[2023-05-06] MEDS: AMOXICILLIN/CLAVULANATE K 500-125 MG TAB 1 TABLET PO (09:25)
[2023-05-06] MEDS: ATORVASTATIN 20 MG TABLET PO (09:25)
[2023-05-06 09:26] VITALS: PULSE 69
[2023-05-06] MEDS: DOXYCYCLINE HYCLATE 100 MG TABLET PO (09:26)
[2023-05-06] MEDS: carvediloL 25 MG TABLET PO ×2 (09:26→17:31)
[2023-05-06] MEDS: allopurinoL 100 MG TABLET PO (09:26)
[2023-05-06] MEDS: APIXABAN 2.5 MG TABLET PO ×2 (09:26→17:31)
[2023-05-06] MEDS: TOLNAFTATE 1% POWDER 45 GM BTL 1 APPLIC TOPICAL ×2 (09:27→21:06)
[2023-05-06] MEDS: MUPIROCIN 2% OINT 22 GM TUBE 1 APPLIC TOPICAL (09:27)
[2023-05-06] MEDS: TRIAMCINOLONE ACET 0.1% CREAM 80 GM TUBE 1 APPLIC TOPICAL ×2 (09:28→21:07)
[2023-05-06] MEDS: BETAMETHASONE/CLOTRIMAZOLE CR 15 GM TUBE 1 APPLIC TOPICAL ×2 (09:29→21:06)
--- NOTE | 2023-05-06 09:35 | P.PNNP_ITS ---
Progress Note: A&P Assessment and Plan (1) End-stage renal disease (ESRD): Onset Date: Unknown Code(s): N18.6 - End stage renal disease Status: Chronic Assessment and Plan: * HD went well yesterday. * Next dialysis due on Sunday. * Volume status looks pretty good. * blood pressure is better with the fluid removed. 2L came off yesterday. * Potassium is fine and bicarbonate is fine as well. BUN is well controlled. (2) Panniculitis: Code(s): M79.3 - Panniculitis, unspecified Status: Acute Assessment and Plan: * as evidenced by exam findings * Blood cultures negative so far. * Patient is on Augmentin. * local wound care (3) Neurological deficit, transient: Code(s): R29.818 - Other symptoms and signs involving the nervous system Status: Acute Assessment and Plan: * as evidenced by garbled speech and facial numbness (on 05/01/23) * extensive imaging done with no acute findings * Neurology consulted * follow neurological status * PT/OT as tolerated * Speech is normal now . Also much more conversive. (4) Urinary tract infection: Code(s): N39.0 - Urinary tract infection, site not specified Status: Acute Assessment and Plan: * admission UA highly suggestive * urine culture with Klebsiella * on Augmentin (5) Hypertension: Code(s): I10 - Essential (primary) hypertension Status: Chronic Assessment and Plan: * systolic runs between 120 and 140 Since fluid removed on dialysis. * The patient is On carvedilol 25 twice a day. And lisinopril once a day. 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 Much more conversive today. She is eating pretty well. Breathing is fine. Exam Narrative: General: WD/WN female in NAD Heart: normal S1 and S2; no rub Lungs: clear bilateral Abdomen: soft, nontender, nondistended, positive bowel sounds Extremities: no cyanosis or clubbing; no edema Skin: no acute rash Objective Data Vital Signs Vital Signs: Vital Signs - 24 hr 05/05/23 09:45 05/05/23 10:00 05/05/23 10:15 Temperature Pulse Rate 60 59 L 61 Respiratory Rate Blood Pressure 159/72 H 178/66 H 163/37 H Pulse Oximetry Oxygen Delivery 05/05/23 10:45 05/05/23 10:30 05/05/23 11:00 Temperature Pulse Rate 59 L 60 58 L Respiratory Rate Blood Pressure 147/58 H 163/69 H 174/57 H Pulse Oximetry Oxygen Delivery 05/05/23 11:15 05/05/23 11:30 05/05/23 11:37 Temperature Pulse Rate 60 59 L 59 L Respiratory Rate Blood Pressure 164/49 H 173/57 H 177/59 H Pulse Oximetry Oxygen Delivery 05/05
--- NOTE | 2023-05-06 09:35 | PM.PNNEP ---
Progress Note: A&P Assessment and Plan (1) End-stage renal disease (ESRD): Onset Date: Unknown Code(s): N18.6 - End stage renal disease Status: Chronic Assessment and Plan: HD went well yesterday. Next dialysis due on Sunday. Volume status looks pretty good. blood pressure is better with the fluid removed. 2L came off yesterday. Potassium is fine and bicarbonate is fine as well. BUN is well controlled. (2) Panniculitis: Code(s): M79.3 - Panniculitis, unspecified Status: Acute Assessment and Plan: as evidenced by exam findings Blood cultures negative so far. Patient is on Augmentin. local wound care (3) Neurological deficit, transient: Code(s): R29.818 - Other symptoms and signs involving the nervous system Status: Acute Assessment and Plan: as evidenced by garbled speech and facial numbness (on 05/01/23) extensive imaging done with no acute findings Neurology consulted follow neurological status PT/OT as tolerated Speech is normal now . Also much more conversive. (4) Urinary tract infection: Code(s): N39.0 - Urinary tract infection, site not specified Status: Acute Assessment and Plan: admission UA highly suggestive urine culture with Klebsiella on Augmentin (5) Hypertension: Code(s): I10 - Essential (primary) hypertension Status: Chronic Assessment and Plan: systolic runs between 120 and 140 Since fluid removed on dialysis. The patient is On carvedilol 25 twice a day. And lisinopril once a day. (6) Anemia: Code(s): D64.9 - Anemia, unspecified Status: Chronic Assessment and Plan: H/H in range for a dialysis patient Epogen with HD Hemoglobin 11.2 today (7) Insulin dependent type 2 diabetes mellitus: Code(s): E11.9 - Type 2 diabetes mellitus without complications; Z79.4 - shelter (current) use of insulin Status: Chronic Assessment and Plan: follow accu-cheks glycemic control per hospitalists Subjective Date/time seen: 05/06/23 09:35 Interval history: Kelley is feeling better. Much more conversive today. She is eating pretty well. Breathing is fine. Exam Narrative: General: WD/WN female in NAD Heart: normal S1 and S2; no rub Lungs: clear bilateral Abdomen: soft, nontender, nondistended, positive bowel sounds Extremities: no cyanosis or clubbing; no edema Skin: no acute rash Objective Data Vital Signs Vital Signs: Vital Signs - 24 hr 05/05/23 09:45 05/05/23 10:00 05/05/23 10:15 Temperature Pulse Rate 60 59 L 61 Respiratory Rate Blood Pressure 159/72 H 178/66 H 163/37 H Pulse Oximetry Oxygen Delivery 05/05/23 10:45 05/05/23 10:30 05/05/23 11:00 Temperature Pulse Rate 59 L 60 58 L Respiratory Rate Blood Pressure 147/58 H 163/69 H 174/57 H Pulse Oximetry Oxygen Delivery 05/05/23 11:15 05/05/23 11:30 05/05/23 11:37 Temperature Pulse Rate 60 59 L 59 L Respiratory Rate Blood Pressure 164/49 H 173/57 H 177/59 H Pulse Oximetry Oxygen Delivery 05/05/23 11:54 05/05/23 12:21 05/05/23 12:29 Temperature 97.2 F L 97.3 F L Pulse Rate 60 61 61 Respiratory Rate 16 16 Blood Pressure 152/46 H 139/59 L Pulse Oximetry 96 96 Oxygen Delivery 05/05/23 14:00 05/05/23 16:41 05/05/23 16:43 Temperature 97.1 F L Pulse Rate 61 65 Respiratory Rate 16 Blood Pressure 127/50 L Pulse Oximetry 94 92 Oxygen Delivery Room Air 05/05/23 20:05 05/05/23 20:00 05/06/23 06:00 Temperature 97.7 F 97.3 F L Pulse Rate 67 67 Respiratory Rate 18 16 Blood Pressure 127/56 L 140/64 Pulse Oximetry 93 91 Oxygen Delivery Room Air 05/06/23 09:26 Temperature Pulse Rate 69 Respiratory Rate Blood Pressure Pulse Oximetry Oxygen Delivery Intake/Output Intake/Output: Intake & Output 05/03/23 05/04/23
[2023-05-06 11:27] LABS: Glucose Point of Care 159 mg/dl (65-105)
--- NOTE | 2023-05-06 12:41 | P.PNIM_ITS ---
Progress Note: A&P Assessment and Plan (1) Neurological deficit, transient: Code(s): R29.818 - Other symptoms and signs involving the nervous system Status: Acute (2) Panniculitis: Code(s): M79.3 - Panniculitis, unspecified Status: Acute (3) ESRD on hemodialysis: Code(s): N18.6 - End stage renal disease; Z99.2 - Dependence on renal dialysis Status: Acute (4) Diabetes: Qualifiers: Diabetes mellitus type: type 2 Diabetes mellitus fci insulin use: with fci use Diabetes mellitus complication status: with kidney complications Diabetes mellitus complication detail: with chronic kidney disease Chronic kidney disease stage: on chronic dialysis Qualified Code(s): E11.22 - Type 2 diabetes mellitus with diabetic chronic kidney disease; N18.6 - End stage renal disease; Z79.4 - intermediate (current) use of insulin; Z99.2 - Dependence on renal dialysis Code(s): E11.9 - Type 2 diabetes mellitus without complications Status: Acute (5) Acute encephalopathy: Code(s): G93.40 - Encephalopathy, unspecified Status: Acute Plan (1) Panniculitis: ?Code(s): M79.3 - Panniculitis, unspecified ?Status:?Acute ?Assessment and Plan: 04/29/23: * Does not meet Sepsis criteria. * Visible on CT scan. * Consistent with elevated CRP and Sed Rate * Continue Vancomycin therapy * Tolnaftate powder and Betamethasone cream topically to affected areas topically. * Trend labs and VS. * PRN pain meds. 04/30/23: * Blood cultures showing no growth to date * Continue with current treatment plan 05/01/23: * Blood culture showing no growth today * Continue with current treatment plan 05/02/23: * Blood cultures still showing no growth on preliminary 05/03: Patient has some doxycycline 100 mg q.12 hours p.o., follow-up procalcitonin (2) Neurological deficit present: ?Code(s): Improved Acute encephalopathy. improved 05/03 When I saw exam patient, patient was somnolent, patient was able to move all extremities, not oriented x3 Likely secondary to polypharmacy, patient has psychiatric disorders, on multiple medications including BuSpar, Seroquel, trazodone, patient is also on Benadryl, morphine and Dilaudid lorazepam pain IV needed Hold medications with side effects of sedation Neuro check 05/04: After holding the medications mentioned above yesterday, patient is alert, oriented x3 today. Although patient complains weakness follow up arm, but patient still can hold left arm up. Recent brain MRI shows no acute intracranial process on April 30 (3) ESRD on hemodialysis: * No change to current treatment plan 05/05/23: HD today (5) Urinary tract infection: ?Code(s): N39.0 - Urinary tract infection, site not specified ?Status:?Acute ?Assessment and Plan: 04/29/23: * As evidenced by urine appearing turbid, with 3+ Protein, 2+ Blood, 3+ Leuks, >100 WBC's with clumps present, and only a few epithelials. * Will add Rocephin to pt's abx regimen * Urine culture is pending 04/30/23: * UC showing Klebsiella pneumoniae, on preliminary * Continue Rocephin * Will await final culture results 05/01/23: * Urine culture showing Klebsiella pneumonia a on final read * Rocephin and Ancef to discontinue and will start patient on doxycycline and Augmentin oral for 7 days 05/02/2023: * No change to current treatment plan(6) Itching: ?Code(s): L29.9 - Pruritus, unspecified ?Status:?Acute ?Assessment and Plan: 04/29/23: * Pt is itching
--- NOTE | 2023-05-06 12:41 | PM.IMPN ---
Progress Note: A&P Assessment and Plan (1) Neurological deficit, transient: Code(s): R29.818 - Other symptoms and signs involving the nervous system Status: Acute (2) Panniculitis: Code(s): M79.3 - Panniculitis, unspecified Status: Acute (3) ESRD on hemodialysis: Code(s): N18.6 - End stage renal disease; Z99.2 - Dependence on renal dialysis Status: Acute (4) Diabetes: Qualifiers: Diabetes mellitus type: type 2 Diabetes mellitus retirement insulin use: with retirement use Diabetes mellitus complication status: with kidney complications Diabetes mellitus complication detail: with chronic kidney disease Chronic kidney disease stage: on chronic dialysis Qualified Code(s): E11.22 - Type 2 diabetes mellitus with diabetic chronic kidney disease; N18.6 - End stage renal disease; Z79.4 - USP (current) use of insulin; Z99.2 - Dependence on renal dialysis Code(s): E11.9 - Type 2 diabetes mellitus without complications Status: Acute (5) Acute encephalopathy: Code(s): G93.40 - Encephalopathy, unspecified Status: Acute Plan (1) Panniculitis: ?Code(s): M79.3 - Panniculitis, unspecified ?Status:?Acute ?Assessment and Plan: 04/29/23: Does not meet Sepsis criteria. Visible on CT scan. Consistent with elevated CRP and Sed Rate Continue Vancomycin therapy Tolnaftate powder and Betamethasone cream topically to affected areas topically. Trend labs and VS. PRN pain meds. 04/30/23: Blood cultures showing no growth to date Continue with current treatment plan 05/01/23: Blood culture showing no growth today Continue with current treatment plan 05/02/23: Blood cultures still showing no growth on preliminary 05/03: Patient has some doxycycline 100 mg q.12 hours p.o., follow-up procalcitonin (2) Neurological deficit present: ?Code(s): Improved Acute encephalopathy. improved 05/03 When I saw exam patient, patient was somnolent, patient was able to move all extremities, not oriented x3 Likely secondary to polypharmacy, patient has psychiatric disorders, on multiple medications including BuSpar, Seroquel, trazodone, patient is also on Benadryl, morphine and Dilaudid lorazepam pain IV needed Hold medications with side effects of sedation Neuro check 05/04: After holding the medications mentioned above yesterday, patient is alert, oriented x3 today. Although patient complains weakness follow up arm, but patient still can hold left arm up. Recent brain MRI shows no acute intracranial process on April 30 (3) ESRD on hemodialysis: No change to current treatment plan 05/05/23: HD today (5) Urinary tract infection: ?Code(s): N39.0 - Urinary tract infection, site not specified ?Status:?Acute ?Assessment and Plan: 04/29/23: As evidenced by urine appearing turbid, with 3+ Protein, 2+ Blood, 3+ Leuks, >100 WBC's with clumps present, and only a few epithelials. Will add Rocephin to pt's abx regimen Urine culture is pending 04/30/23: UC showing Klebsiella pneumoniae, on preliminary Continue Rocephin Will await final culture results 05/01/23: Urine culture showing Klebsiella pneumonia a on final read Rocephin and Ancef to discontinue and will start patient on doxycycline and Augmentin oral for 7 days 05/02/2023: No change to current treatment plan(6) Itching: ?Code(s): L29.9 - Pruritus, unspecified ?Status:?Acute ?Assessment and Plan: 04/29/23: Pt is itching on her back from laying against the sheets. Benadryl is ordered for IV dosing. Triamcinolone cream is ordered for topical application. 04/30/23: Continue with current treatment plan (7) Status post below knee amputation of right lower extremity: ?Onset Date:?12/2020 Noted BKA on physical exam (8) Hypertension: Continue with current treatment plan (9) Grade II diastolic dysfunction: Currently appears euvolemic. Last ECH
[2023-05-06 13:40] VITALS: BP 119/51; PULSE 68; RESP 18; TEMP 36.6; O2SAT 96
[2023-05-06 16:58] LABS: Glucose Point of Care 189 mg/dl (65-105)
[2023-05-06 17:31] VITALS: PULSE 64
[2023-05-06] MEDS: lisinopriL 10 MG TABLET PO (17:31)
[2023-05-06 21:06] VITALS: BP 104/42; PULSE 62; RESP 14; TEMP 36; O2SAT 97
[2023-05-06 21:47] LABS: Glucose Point of Care 194 mg/dl (65-105)
[2023-05-07 04:58] VITALS: BP 167/64; PULSE 62; RESP 14; TEMP 36.2; O2SAT 95
[2023-05-07 06:10] LABS: Basophils Percent Auto 0.6 % (0.2-1.2); Eosinophils Absolute Auto 0.2 K/mm3 (0-0.3); Eosinophils Percent Auto 2.5 % (0-4.4); Hematocrit 37.5 % (37.0-47.0); Hemoglobin 11.4 g/dL (12.0-15.0); Immature Granulocyte Absolute 0.06 K/mm3 (0.00-0.031); Immature Granulocyte Percent A 0.9 % (0-0.5); Lymphocytes Absolute Auto 0.99 K/mm3 (0.9-3.2); Lymphocytes Percent Auto 14.3 % (18.3-44.2); Mean Corpuscular HGB Conc 30.4 g/dl (32-36); Mean Corpuscular Hemoglobin 31.8 pg (26-34); Mean Corpuscular Volume 104.7 fl (80-100); Mean Platelet Volume 11.1 fl (7.4-10.4); Monocytes Absolute Auto 0.4 K/mm3 (0.1-0.6); Monocytes Percent Auto 6.2 % (2.6-8.5); Neutrophils Absolute Auto 5.2 K/mm3 (1.3-6.7); Neutrophils Percent Auto 75.5 % (45.5-73.1); Platelet Count Result 134 k/mm3 (150-375); Red Blood Count 3.58 M/mm3 (4.2-5.4); Red Cell Distribution Width 16.6 % (11.5-14.5); White Blood Count 6.9 K/mm3 (4.5-10.0)
[2023-05-07 06:27] LABS: Alanine Aminotransferase 21 U/L (6-35); Alkaline Phosphatase 164 U/L (38-126); Anion Gap 7 mmol/L (8-16); Aspartate Amino Transferase 35 U/L (14-36); Bilirubin,Total 1.5 mg/dL (0.2-1.3); Blood Urea Nitrogen 24 mg/dL (7-17); Calcium 8.4 mg/dL (8.4-10.2); Carbon Dioxide 27 mmol/L (22-30); Chloride 100 mmol/L (98-107); Estimated CRCL calculation 9 ml/min; Estimated Glomerular Filt Rate 7; Glucose 155 mg/dL (65-110); Phosphorus 3.8 mg/dL (2.5-4.5); Potassium 4.4 mmol/L (3.4-5.0); Sodium 134 mmol/L (137-145)
[2023-05-07 08:25] VITALS: PULSE 65
[2023-05-07] MEDS: CALCIUM ACETATE 667 MG TABLET PO ×3 (08:25→17:07)
[2023-05-07] MEDS: allopurinoL 100 MG TABLET PO (08:25)
[2023-05-07] MEDS: APIXABAN 2.5 MG TABLET PO ×2 (08:25→17:07)
[2023-05-07] MEDS: ATORVASTATIN 20 MG TABLET PO (08:25)
[2023-05-07] MEDS: PANTOPRAZOLE 40 MG TABLET PO (08:25)
[2023-05-07] MEDS: carvediloL 25 MG TABLET PO ×2 (08:25→17:05)
[2023-05-07] MEDS: TRIAMCINOLONE ACET 0.1% CREAM 80 GM TUBE 1 APPLIC TOPICAL ×2 (08:27→20:43)
[2023-05-07] MEDS: BETAMETHASONE/CLOTRIMAZOLE CR 15 GM TUBE 1 APPLIC TOPICAL ×2 (08:27→20:43)
[2023-05-07] MEDS: MUPIROCIN 2% OINT 22 GM TUBE 1 APPLIC TOPICAL (08:27)
[2023-05-07] MEDS: TOLNAFTATE 1% POWDER 45 GM BTL 1 APPLIC TOPICAL ×2 (08:27→20:43)
[2023-05-07 08:40] LABS: Glucose Point of Care 155 mg/dl (65-105)
[2023-05-07 09:50] VITALS: O2SAT 94
--- NOTE | 2023-05-07 10:23 | P.PNIM_ITS ---
Progress Note: A&P Assessment and Plan (1) Neurological deficit, transient: Code(s): R29.818 - Other symptoms and signs involving the nervous system Status: Acute (2) Panniculitis: Code(s): M79.3 - Panniculitis, unspecified Status: Acute (3) ESRD on hemodialysis: Code(s): N18.6 - End stage renal disease; Z99.2 - Dependence on renal dialysis Status: Acute (4) Diabetes: Qualifiers: Chronic kidney disease stage: on chronic dialysis Diabetes mellitus complication detail: with chronic kidney disease Diabetes mellitus complication status: with kidney complications Diabetes mellitus longterm insulin use: with longterm use Diabetes mellitus type: type 2 Qualified Code(s): E11.22 - Type 2 diabetes mellitus with diabetic chronic kidney disease; N18.6 - End stage renal disease; Z79.4 - assisted (current) use of insulin; Z99.2 - Dependence on renal dialysis Code(s): E11.9 - Type 2 diabetes mellitus without complications Status: Acute (5) Acute encephalopathy: Code(s): G93.40 - Encephalopathy, unspecified Status: Acute Plan (1) Panniculitis: ?Code(s): M79.3 - Panniculitis, unspecified ?Status:?Acute ?Assessment and Plan: 04/29/23: * Does not meet Sepsis criteria. * Visible on CT scan. * Consistent with elevated CRP and Sed Rate * Continue Vancomycin therapy * Tolnaftate powder and Betamethasone cream topically to affected areas topically. * Trend labs and VS. * PRN pain meds. 04/30/23: * Blood cultures showing no growth to date * Continue with current treatment plan 05/01/23: * Blood culture showing no growth today * Continue with current treatment plan 05/02/23: * Blood cultures still showing no growth on preliminary 05/03: Patient has some doxycycline 100 mg q.12 hours p.o., follow-up procalcitonin (2) Neurological deficit present: ?Code(s): Improved Acute encephalopathy. improved 05/03 When I saw exam patient, patient was somnolent, patient was able to move all extremities, not oriented x3 Likely secondary to polypharmacy, patient has psychiatric disorders, on multiple medications including BuSpar, Seroquel, trazodone, patient is also on Benadryl, morphine and Dilaudid lorazepam pain IV needed Hold medications with side effects of sedation Neuro check 05/04: After holding the medications mentioned above yesterday, patient is alert, oriented x3 today. Although patient complains weakness follow up arm, but patient still can hold left arm up. Recent brain MRI shows no acute intracranial process on April 3005/07: No focal weakness, patient is alert oriented x3, left-sided weakness is requiring (3) ESRD on hemodialysis: * No change to current treatment plan 05/05/23: HD today (5) Urinary tract infection: ?Code(s): N39.0 - Urinary tract infection, site not specified ?Status:?Acute ?Assessment and Plan: 04/29/23: * As evidenced by urine appearing turbid, with 3+ Protein, 2+ Blood, 3+ Leuks, >100 WBC's with clumps present, and only a few epithelials. * Will add Rocephin to pt's abx regimen * Urine culture is pending 04/30/23: * UC showing Klebsiella pneumoniae, on preliminary * Continue Rocephin * Will await final culture results 05/01/23: * Urine culture showing Klebsiella pneumonia a on final read * Rocephin and Ancef to discontinue and will start patient on doxycycline and Augmentin oral for 7 days 05/02/2023: * No change to current treatment plan(6) Itching: ?Code(s): L29.9 - Pruritus, unspecif
--- NOTE | 2023-05-07 10:23 | PM.IMPN ---
Progress Note: A&P Assessment and Plan (1) Neurological deficit, transient: Code(s): R29.818 - Other symptoms and signs involving the nervous system Status: Acute (2) Panniculitis: Code(s): M79.3 - Panniculitis, unspecified Status: Acute (3) ESRD on hemodialysis: Code(s): N18.6 - End stage renal disease; Z99.2 - Dependence on renal dialysis Status: Acute (4) Diabetes: Qualifiers: Chronic kidney disease stage: on chronic dialysis Diabetes mellitus complication detail: with chronic kidney disease Diabetes mellitus complication status: with kidney complications Diabetes mellitus snf insulin use: with snf use Diabetes mellitus type: type 2 Qualified Code(s): E11.22 - Type 2 diabetes mellitus with diabetic chronic kidney disease; N18.6 - End stage renal disease; Z79.4 - FDC (current) use of insulin; Z99.2 - Dependence on renal dialysis Code(s): E11.9 - Type 2 diabetes mellitus without complications Status: Acute (5) Acute encephalopathy: Code(s): G93.40 - Encephalopathy, unspecified Status: Acute Plan (1) Panniculitis: ?Code(s): M79.3 - Panniculitis, unspecified ?Status:?Acute ?Assessment and Plan: 04/29/23: Does not meet Sepsis criteria. Visible on CT scan. Consistent with elevated CRP and Sed Rate Continue Vancomycin therapy Tolnaftate powder and Betamethasone cream topically to affected areas topically. Trend labs and VS. PRN pain meds. 04/30/23: Blood cultures showing no growth to date Continue with current treatment plan 05/01/23: Blood culture showing no growth today Continue with current treatment plan 05/02/23: Blood cultures still showing no growth on preliminary 05/03: Patient has some doxycycline 100 mg q.12 hours p.o., follow-up procalcitonin (2) Neurological deficit present: ?Code(s): Improved Acute encephalopathy. improved 05/03 When I saw exam patient, patient was somnolent, patient was able to move all extremities, not oriented x3 Likely secondary to polypharmacy, patient has psychiatric disorders, on multiple medications including BuSpar, Seroquel, trazodone, patient is also on Benadryl, morphine and Dilaudid lorazepam pain IV needed Hold medications with side effects of sedation Neuro check 05/04: After holding the medications mentioned above yesterday, patient is alert, oriented x3 today. Although patient complains weakness follow up arm, but patient still can hold left arm up. Recent brain MRI shows no acute intracranial process on April 3005/07: No focal weakness, patient is alert oriented x3, left-sided weakness is requiring (3) ESRD on hemodialysis: No change to current treatment plan 05/05/23: HD today (5) Urinary tract infection: ?Code(s): N39.0 - Urinary tract infection, site not specified ?Status:?Acute ?Assessment and Plan: 04/29/23: As evidenced by urine appearing turbid, with 3+ Protein, 2+ Blood, 3+ Leuks, >100 WBC's with clumps present, and only a few epithelials. Will add Rocephin to pt's abx regimen Urine culture is pending 04/30/23: UC showing Klebsiella pneumoniae, on preliminary Continue Rocephin Will await final culture results 05/01/23: Urine culture showing Klebsiella pneumonia a on final read Rocephin and Ancef to discontinue and will start patient on doxycycline and Augmentin oral for 7 days 05/02/2023: No change to current treatment plan(6) Itching: ?Code(s): L29.9 - Pruritus, unspecified ?Status:?Acute ?Assessment and Plan: 04/29/23: Pt is itching on her back from laying against the sheets. Benadryl is ordered for IV dosing. Triamcinolone cream is ordered for topical application. 04/30/23: Continue with current treatment plan (7) Status post below knee amputation of right lower extremity: ?Onset Date:?12/2020 Noted BKA on physical exam (8) Hypertension: Continue with current treat
--- NOTE | 2023-05-07 11:37 | PM.PNNEP ---
Progress Note: A&P Assessment and Plan (1) End-stage renal disease (ESRD): Onset Date: Unknown Code(s): N18.6 - End stage renal disease Status: Chronic Assessment and Plan: HD tomottow follow electrolytes, volume status, and clearance continue T/T/S outpatient dialysis schedule (2) Panniculitis: Code(s): M79.3 - Panniculitis, unspecified Status: Acute Assessment and Plan: as evidenced by exam findings blood cultures negative so far. atient is on oral antibiotics local wound care (3) Neurological deficit, transient: Code(s): R29.818 - Other symptoms and signs involving the nervous system Status: Acute Assessment and Plan: as evidenced by garbled speech and facial numbness (on 05/01/23) extensive imaging done with no acute findings Neurology recommendations noted follow neurological status PT/OT as tolerated (4) Urinary tract infection: Code(s): N39.0 - Urinary tract infection, site not specified Status: Acute Assessment and Plan: admission UA highly suggestive urine culture with Klebsiella on antibiotics (5) Hypertension: Code(s): I10 - Essential (primary) hypertension Status: Chronic Assessment and Plan: reasonable control follow trend of hemodynamics (6) Anemia: Code(s): D64.9 - Anemia, unspecified Status: Chronic Assessment and Plan: H/H in range for a dialysis patient Epogen with HD (7) Insulin dependent type 2 diabetes mellitus: Code(s): E11.9 - Type 2 diabetes mellitus without complications; Z79.4 - excellence coach (current) use of insulin Status: Chronic Assessment and Plan: follow accu-cheks glycemic control per hospitalists Will continue to follow. Subjective Date/time seen: 05/07/23 11:37 Interval history: Follow-up for end stage renal disease on hemodialysis. Chart reviewed since last seen -- seems to be doing a bit better but reports ongoing weakness and difficulty ambulating; no other acute issues/events overnight or earlier this AM; no apparent distress. Exam Narrative: General: WD/WN female in NAD Heart: normal S1 and S2; no rub Lungs: clear bilaterally Abdomen: soft, nontender, nondistended, positive bowel sounds Extremities: no cyanosis or clubbing; no edema Skin: no nodules Objective Data Vital Signs Vital Signs: Vital Signs Temp Pulse Resp BP Pulse Ox O2 Del Method 05/07/23 09:50 94 Room Air 05/07/23 08:25 65 05/07/23 04:58 97.1 F L 62 14 167/64 H 95 05/06/23 20:00 Room Air 05/06/23 21:06 96.8 F L 62 14 104/42 L 97 05/06/23 17:31 64 05/06/23 13:40 97.8 F 68 18 119/51 L 96 Intake/Output Intake/Output: Intake & Output 05/04/23 05/05/23 05/06/23 05/07/23 23:59 23:59 23:59 23:59 Intake Total 720 850 880 240 Output Total 0 2000 0 Balance 720 -1150 880 240 Meds/Results Medications: Active Medications Generic Name Dose Route Start Last Admin Trade Name Freq PRN Reason Stop Dose Admin Acetaminophen 650 mg 05/03/23 15:35 05/06/23 09:24 Acetaminophen 325 Mg Tablet PO 650 mg Q6H PRN Administration Mild Pain (1-3) or Fever Acetaminophen 650 mg 05/03/23 20:54 Acetaminophen 650 Mg Suppository RECTAL Q6H PRN Mild Pain (1-3) or Fever Allopurinol 100 mg 04/29/23 09:00 05/07/23 08:25 Allopurinol 100 Mg Tablet PO 100 mg DAILY MICHELL Administration Apixaban 2.5 mg 04/29/23 09:00 05/07/23 08:25 Apixaban 2.5 Mg Tablet PO 2.5 mg BID MICHELL Administration Atorvastatin Calcium 20 mg 04/29/23 09:00 05/07/23 08:25 Atorvastatin 20 Mg Tablet PO 20 mg DAILY MICHELL Administration Bupropion HCl 150 mg 04/29/23 09:00 05/03/23 13:22 Bupropion Hcl Sr (12 Hr) 150 Mg Tab PO 150 mg DAILY MICHELL Administration Calcium Acetate 667 mg 04/29/23 08:00 05/07/23 12:35 Calcium Acetate
--- NOTE | 2023-05-07 11:37 | P.PNNP_ITS ---
Progress Note: A&P Assessment and Plan (1) End-stage renal disease (ESRD): Onset Date: Unknown Code(s): N18.6 - End stage renal disease Status: Chronic Assessment and Plan: * HD tomottow * follow electrolytes, volume status, and clearance * continue T/T/S outpatient dialysis schedule (2) Panniculitis: Code(s): M79.3 - Panniculitis, unspecified Status: Acute Assessment and Plan: * as evidenced by exam findings * blood cultures negative so far. * atient is on oral antibiotics * local wound care (3) Neurological deficit, transient: Code(s): R29.818 - Other symptoms and signs involving the nervous system Status: Acute Assessment and Plan: * as evidenced by garbled speech and facial numbness (on 05/01/23) * extensive imaging done with no acute findings * Neurology recommendations noted * follow neurological status * PT/OT as tolerated (4) Urinary tract infection: Code(s): N39.0 - Urinary tract infection, site not specified Status: Acute Assessment and Plan: * admission UA highly suggestive * urine culture with Klebsiella * on antibiotics (5) Hypertension: Code(s): I10 - Essential (primary) hypertension Status: Chronic Assessment and Plan: * reasonable control * follow trend of hemodynamics (6) Anemia: Code(s): D64.9 - Anemia, unspecified Status: Chronic Assessment and Plan: * H/H in range for a dialysis patient * Epogen with HD (7) Insulin dependent type 2 diabetes mellitus: Code(s): E11.9 - Type 2 diabetes mellitus without complications; Z79.4 - [facility] (current) use of insulin Status: Chronic Assessment and Plan: * follow accu-cheks * glycemic control per hospitalists Will continue to follow. Subjective Date/time seen: 05/07/23 11:37 Interval history: Follow-up for end stage renal disease on hemodialysis. Chart reviewed since last seen -- seems to be doing a bit better but reports ongoing weakness and difficulty ambulating; no other acute issues/events overnight or earlier this AM; no apparent distress. Exam Narrative: General: WD/WN female in NAD Heart: normal S1 and S2; no rub Lungs: clear bilaterally Abdomen: soft, nontender, nondistended, positive bowel sounds Extremities: no cyanosis or clubbing; no edema Skin: no nodules Objective Data Vital Signs Vital Signs: Vital Signs Temp Pulse Resp BP Pulse Ox O2 Del Method 05/07/23 09:50 94 Room Air 05/07/23 08:25 65 05/07/23 04:58 97.1 F L 62 14 167/64 H 95 05/06/23 20:00 Room Air 05/06/23 21:06 96.8 F L 62 14 104/42 L 97 05/06/23 17:31 64 05/06/23 13:40 97.8 F 68 18 119/51 L 96 Intake/Output Intake/Output: Intake & Output 05/04/23 05/05/23 05/06/23 05/07/23 23:59 23:59 23:59 23:59 Intake Total 720 850 880 240 Output Total 0 2000 0 Balance 720 -1150 880 240 Meds/Results Medications: Active Medications Generic Name Dose Route Start Last Admin Trade Name Freq PRN Reason Stop Dose Admin Acetaminophen 650 mg 05/03/23 15:35 05/06/23 09:24
--- NOTE | 2023-05-07 11:39 | PCNWS ---
Weekly nutritional screen. Patient is tolerating current diet with adequate intake. Intakes are improving but pt said appetite still not great and wants to try Nepro for additional 420 kcal and 19 g protein each. No weight loss reported. No nutritional needs at this time.
[2023-05-07 11:57] LABS: Glucose Point of Care 144 mg/dl (65-105)
[2023-05-07] MEDS: LOPERAMIDE HCL 2 MG CAPSULE 4 MG PO (13:40)
[2023-05-07 14:00] VITALS: BP 148/68; PULSE 63; RESP 18; TEMP 36.2; O2SAT 95
[2023-05-07] MEDS: ONDANSETRON INJ 4 MG/2 ML VIAL IV PUSH (14:00)
[2023-05-07 17:05] VITALS: PULSE 63
[2023-05-07] MEDS: lisinopriL 10 MG TABLET PO (17:07)
[2023-05-07 17:20] LABS: Glucose Point of Care 161 mg/dl (65-105)
[2023-05-07 20:09] VITALS: BP 138/62; PULSE 64; RESP 18; TEMP 36.8; O2SAT 93
[2023-05-08] VITALS (23 sets, daily range): BP systolic 135–173; BP diastolic 56–80; PULSE 56–64; RESP 16–18; TEMP 35.3–37; O2SAT 95–98
[2023-05-08 06:13] LABS: Glucose Point of Care 180 mg/dl (65-105)
[2023-05-08 06:21] LABS: Basophils Absolute Auto 0.1 K/mm3 (0.0-0.1); Basophils Percent Auto 0.8 % (0.2-1.2); Eosinophils Absolute Auto 0.2 K/mm3 (0-0.3); Eosinophils Percent Auto 2.4 % (0-4.4); Hematocrit 40.6 % (37.0-47.0); Hemoglobin 12.3 g/dL (12.0-15.0); Immature Granulocyte Absolute 0.08 K/mm3 (0.00-0.031); Immature Platelet Fraction Pct 10.5 % (0.9-11.2); Lymphocytes Absolute Auto 0.92 K/mm3 (0.9-3.2); Mean Corpuscular HGB Conc 30.3 g/dl (32-36); Mean Corpuscular Hemoglobin 32.5 pg (26-34); Mean Corpuscular Volume 107.1 fl (80-100); Mean Platelet Volume 11.7 fl (7.4-10.4); Monocytes Absolute Auto 0.4 K/mm3 (0.1-0.6); Monocytes Percent Auto 5.5 % (2.6-8.5); Neutrophils Percent Auto 78.3 % (45.5-73.1); Platelet Count Result 137 k/mm3 (150-375); Red Blood Count 3.79 M/mm3 (4.2-5.4); Red Cell Distribution Width 16.7 % (11.5-14.5); White Blood Count 7.7 K/mm3 (4.5-10.0)
[2023-05-08 06:55] LABS: Alanine Aminotransferase 22 U/L (6-35); Albumin Level 3.1 g/dL (3.5-5.1); Alkaline Phosphatase 160 U/L (38-126); Anion Gap 9 mmol/L (8-16); Aspartate Amino Transferase 40 U/L (14-36); Bilirubin,Total 1.7 mg/dL (0.2-1.3); Blood Urea Nitrogen 31 mg/dL (7-17); Calcium 8.6 mg/dL (8.4-10.2); Carbon Dioxide 22 mmol/L (22-30); Chloride 99 mmol/L (98-107); Estimated CRCL calculation 8 ml/min; Estimated Glomerular Filt Rate 6; Glucose 137 mg/dL (65-110); Potassium 4.6 mmol/L (3.4-5.0); Sodium 130 mmol/L (137-145)
[2023-05-08 08:26] LABS: Glucose Point of Care 123 mg/dl (65-105)
[2023-05-08] MEDS: PANTOPRAZOLE 40 MG TABLET PO (08:42)
[2023-05-08] MEDS: ATORVASTATIN 20 MG TABLET PO (08:43)
[2023-05-08] MEDS: allopurinoL 100 MG TABLET PO (08:43)
[2023-05-08] MEDS: APIXABAN 2.5 MG TABLET PO ×2 (08:43→17:27)
[2023-05-08] MEDS: CALCIUM ACETATE 667 MG TABLET PO ×3 (08:43→17:27)
[2023-05-08] MEDS: carvediloL 25 MG TABLET PO ×2 (08:43→17:27)
[2023-05-08] MEDS: TOLNAFTATE 1% POWDER 45 GM BTL 1 APPLIC TOPICAL (08:44)
[2023-05-08] MEDS: TRIAMCINOLONE ACET 0.1% CREAM 80 GM TUBE 1 APPLIC TOPICAL (08:44)
[2023-05-08] MEDS: MUPIROCIN 2% OINT 22 GM TUBE 1 APPLIC TOPICAL (08:44)
[2023-05-08] MEDS: BETAMETHASONE/CLOTRIMAZOLE CR 15 GM TUBE 1 APPLIC TOPICAL (08:44)
--- NOTE | 2023-05-08 08:55 | P.PNIM_ITS ---
Progress Note: A&P Assessment and Plan (1) Neurological deficit, transient: Code(s): R29.818 - Other symptoms and signs involving the nervous system Status: Acute (2) Panniculitis: Code(s): M79.3 - Panniculitis, unspecified Status: Acute (3) ESRD on hemodialysis: Code(s): N18.6 - End stage renal disease; Z99.2 - Dependence on renal dialysis Status: Acute (4) Diabetes: Qualifiers: Chronic kidney disease stage: on chronic dialysis Diabetes mellitus complication detail: with chronic kidney disease Diabetes mellitus complication status: with kidney complications Diabetes mellitus custodial insulin use: with custodial use Diabetes mellitus type: type 2 Qualified Code(s): E11.22 - Type 2 diabetes mellitus with diabetic chronic kidney disease; N18.6 - End stage renal disease; Z79.4 - half-way (current) use of insulin; Z99.2 - Dependence on renal dialysis Code(s): E11.9 - Type 2 diabetes mellitus without complications Status: Acute (5) Acute encephalopathy: Code(s): G93.40 - Encephalopathy, unspecified Status: Acute Plan (1) Panniculitis: ?Code(s): M79.3 - Panniculitis, unspecified ?Status:?Acute ?Assessment and Plan: 04/29/23: * Does not meet Sepsis criteria. * Visible on CT scan. * Consistent with elevated CRP and Sed Rate * Continue Vancomycin therapy * Tolnaftate powder and Betamethasone cream topically to affected areas topically. * Trend labs and VS. * PRN pain meds. 04/30/23: * Blood cultures showing no growth to date * Continue with current treatment plan 05/01/23: * Blood culture showing no growth today * Continue with current treatment plan 05/02/23: * Blood cultures still showing no growth on preliminary 05/03: Patient has some doxycycline 100 mg q.12 hours p.o., follow-up procalcitonin Completed treatment with antibiotics (2) Neurological deficit present: ?Code(s): Improved Acute encephalopathy. improved 05/03 When I saw exam patient, patient was somnolent, patient was able to move all extremities, not oriented x3 Likely secondary to polypharmacy, patient has psychiatric disorders, on multiple medications including BuSpar, Seroquel, trazodone, patient is also on Benadryl, morphine and Dilaudid lorazepam pain IV needed Hold medications with side effects of sedation Neuro check 05/04: After holding the medications mentioned above yesterday, patient is alert, oriented x3 today. Although patient complains weakness follow up arm, but patient still can hold left arm up. Recent brain MRI shows no acute intracranial process on April 3005/07: No focal weakness, patient is alert oriented x3, left-sided weakness is improving 05/08: No new focal deficit, alert oriented x3 (3) ESRD on hemodialysis: * No change to current treatment plan 05/08/23: HD today (5) Urinary tract infection: ?Code(s): N39.0 - Urinary tract infection, site not specified ?Status:?Acute ?Assessment and Plan: 04/29/23: * As evidenced by urine appearing turbid, with 3+ Protein, 2+ Blood, 3+ Leuks, >100 WBC's with clumps present, and only a few epithelials. * Will add Rocephin to pt's abx regimen 04/30/23: * UC showing Klebsiella pneumoniae, on preliminary * Continue Rocephin * Will await final culture results 05/01/23: * Urine culture showing Klebsiella pneumonia a on final read * Rocephin and Ancef to discontinue and will start patient on doxycycline and Augmentin oral for 7 days now completed treatment (6) Itching: ? ?
--- NOTE | 2023-05-08 08:55 | PM.IMPN ---
Progress Note: A&P Assessment and Plan (1) Neurological deficit, transient: Code(s): R29.818 - Other symptoms and signs involving the nervous system Status: Acute (2) Panniculitis: Code(s): M79.3 - Panniculitis, unspecified Status: Acute (3) ESRD on hemodialysis: Code(s): N18.6 - End stage renal disease; Z99.2 - Dependence on renal dialysis Status: Acute (4) Diabetes: Qualifiers: Chronic kidney disease stage: on chronic dialysis Diabetes mellitus complication detail: with chronic kidney disease Diabetes mellitus complication status: with kidney complications Diabetes mellitus long-term insulin use: with long-term use Diabetes mellitus type: type 2 Qualified Code(s): E11.22 - Type 2 diabetes mellitus with diabetic chronic kidney disease; N18.6 - End stage renal disease; Z79.4 - [facility] (current) use of insulin; Z99.2 - Dependence on renal dialysis Code(s): E11.9 - Type 2 diabetes mellitus without complications Status: Acute (5) Acute encephalopathy: Code(s): G93.40 - Encephalopathy, unspecified Status: Acute Plan (1) Panniculitis: ?Code(s): M79.3 - Panniculitis, unspecified ?Status:?Acute ?Assessment and Plan: 04/29/23: Does not meet Sepsis criteria. Visible on CT scan. Consistent with elevated CRP and Sed Rate Continue Vancomycin therapy Tolnaftate powder and Betamethasone cream topically to affected areas topically. Trend labs and VS. PRN pain meds. 04/30/23: Blood cultures showing no growth to date Continue with current treatment plan 05/01/23: Blood culture showing no growth today Continue with current treatment plan 05/02/23: Blood cultures still showing no growth on preliminary 05/03: Patient has some doxycycline 100 mg q.12 hours p.o., follow-up procalcitonin Completed treatment with antibiotics (2) Neurological deficit present: ?Code(s): Improved Acute encephalopathy. improved 05/03 When I saw exam patient, patient was somnolent, patient was able to move all extremities, not oriented x3 Likely secondary to polypharmacy, patient has psychiatric disorders, on multiple medications including BuSpar, Seroquel, trazodone, patient is also on Benadryl, morphine and Dilaudid lorazepam pain IV needed Hold medications with side effects of sedation Neuro check 05/04: After holding the medications mentioned above yesterday, patient is alert, oriented x3 today. Although patient complains weakness follow up arm, but patient still can hold left arm up. Recent brain MRI shows no acute intracranial process on April 3005/07: No focal weakness, patient is alert oriented x3, left-sided weakness is improving 05/08: No new focal deficit, alert oriented x3 (3) ESRD on hemodialysis: No change to current treatment plan 05/08/23: HD today (5) Urinary tract infection: ?Code(s): N39.0 - Urinary tract infection, site not specified ?Status:?Acute ?Assessment and Plan: 04/29/23: As evidenced by urine appearing turbid, with 3+ Protein, 2+ Blood, 3+ Leuks, >100 WBC's with clumps present, and only a few epithelials. Will add Rocephin to pt's abx regimen 04/30/23: UC showing Klebsiella pneumoniae, on preliminary Continue Rocephin Will await final culture results 05/01/23: Urine culture showing Klebsiella pneumonia a on final read Rocephin and Ancef to discontinue and will start patient on doxycycline and Augmentin oral for 7 days now completed treatment (6) Itching: ?Code(s): L29.9 - Pruritus, unspecified ?Status:?Acute ?Assessment and Plan: 04/29/23: Pt is itching on her back from laying against the sheets. Benadryl is ordered for IV dosing. Triamcinolone cream is ordered for topical application. Completed treatment (7) Status post below knee amputation of right lower extremity: ?Onset Date:?12/2020 Noted BKA on physical exam (8) Hypertension: Continue with current
--- NOTE | 2023-05-08 09:16 | PM.DS ---
DS: Admitting Diagnosis Discharge Date 05/08/23 Admitting Diagnosis (1) Neurological deficit, transient: ?Code(s): R29.818 - Other symptoms and signs involving the nervous system ?Status:?Acute (2) Panniculitis: ?Code(s): M79.3 - Panniculitis, unspecified ?Status:?Acute (3) ESRD on hemodialysis: ?Code(s): N18.6 - End stage renal disease; Z99.2 - Dependence on renal dialysis ?Status:?Acute (4) Diabetes: DS: Discharge Diagnosis Discharge Diagnosis (1) Neurological deficit, transient: Code(s): R29.818 - Other symptoms and signs involving the nervous system Status: Acute (2) Panniculitis: Code(s): M79.3 - Panniculitis, unspecified Status: Acute (3) ESRD on hemodialysis: Code(s): N18.6 - End stage renal disease; Z99.2 - Dependence on renal dialysis Status: Acute (4) Diabetes: Qualifiers: Diabetes mellitus type: type 2 Diabetes 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 Diabetes mellitus complication status: with kidney complications Diabetes mellitus complication detail: with chronic kidney disease Chronic kidney disease stage: on chronic dialysis Qualified Code(s): E11.22 - Type 2 diabetes mellitus with diabetic chronic kidney disease; N18.6 - End stage renal disease; Z79.4 - [facility] (current) use of insulin; Z99.2 - Dependence on renal dialysis Code(s): E11.9 - Type 2 diabetes mellitus without complications Status: Acute (5) Acute encephalopathy: Code(s): G93.40 - Encephalopathy, unspecified Status: Acute DS: Summary Hospital Course Hospital Course: Per H&P, this is a 73-year-old female with past medical history significant for end-stage renal disease on hemodialysis, insulin-dependent diabetes mellitus, generalized anxiety disorder, diabetic neuropathy, venous stasis, gastroesophageal reflux disease, grade 2 diastolic dysfunction, megaloblastic anemia, peripheral artery disease, 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 Patient presents to the emergency room with complaints of abdominal wall redness fall although yosef rash redness swelling and tenderness of 2 weeks duration. patient denies any fevers, rigors, chills, nausea, vomiting has had generalized weakness has been unable to leave the house and has [facility] 2 dialysis treatments.? A chemistry panel was significant for BUN 61 creatinine of 10.? Preliminary workup was significant for CT of abdomen and pelvis was reported as: The following med issues have been addressed during hospitalization (1) Panniculitis: ?Code(s): M79.3 - Panniculitis, unspecified ?Status:?Acute ?Assessment and Plan: 04/29/23: Does not meet Sepsis criteria. Visible on CT scan. Consistent with elevated CRP and Sed Rate Continue Vancomycin therapy Tolnaftate powder and Betamethasone cream topically to affected areas topically. Trend labs and VS. PRN pain meds. 04/30/23: Blood cultures showing no growth to date Continue with current treatment plan 05/01/23: Blood culture showing no growth today Continue with current treatment plan 05/02/23: Blood cultures still showing no growth on preliminary 05/03: Patient has some doxycycline 100 mg q.12 hours p.o., follow-up procalcitonin Completed treatment with antibiotics (2) Neurological deficit present: ?Code(s): Improved Acute encephalopathy. improved 05/03 When I saw exam patient, patient was somnolent, patient was able to move all extremities, not oriented x3 Likely secondary to polypharmacy, patient has psychiatric disorders, on multiple medications including BuSpar, Seroquel, trazodone, patient is also on Benadryl, morphine and Dilaudid lorazepam pain IV needed Hold medications with side effects of sedation Neuro check 05/04: After holding the medications mentioned above yesterday, patient is alert, oriented x3 today. Although patient complains weakness follow up arm, but patient still can h
[2023-05-08] MEDS: ACETAMINOPHEN 325 MG TABLET 650 MG PO (10:28)
[2023-05-08 12:11] LABS: Glucose Point of Care 165 mg/dl (65-105)
[2023-05-08] MEDS: ONDANSETRON INJ 4 MG/2 ML VIAL IV PUSH (12:26)
--- NOTE | 2023-05-08 13:11 | PCPTNOTE ---
The patient treatment was not able to be completed on 05/08/2023 due to patient out of the room for dialysis. Will plan to continue treatment per plan of care.
--- NOTE | 2023-05-08 13:25 | PCOTNOTE ---
Attempted to see Patient this afternoon. Patient is out of the room at this time, in dialysis. Per RN, Patient is planned to be discharged to [facility] this date.
--- NOTE | 2023-05-08 14:09 | PM.PNNEP ---
Progress Note: A&P Assessment and Plan (1) End-stage renal disease (ESRD): Onset Date: Unknown Code(s): N18.6 - End stage renal disease Status: Chronic Assessment and Plan: HD today follow electrolytes, volume status, and clearance continue T/T/S outpatient dialysis schedule (2) Panniculitis: Code(s): M79.3 - Panniculitis, unspecified Status: Acute Assessment and Plan: as evidenced by exam findings blood cultures negative so far. atient is on oral antibiotics local wound care (3) Neurological deficit, transient: Code(s): R29.818 - Other symptoms and signs involving the nervous system Status: Acute Assessment and Plan: as evidenced by garbled speech and facial numbness (on 05/01/23) extensive imaging done with no acute findings Neurology recommendations noted follow neurological status PT/OT as tolerated (4) Urinary tract infection: Code(s): N39.0 - Urinary tract infection, site not specified Status: Acute Assessment and Plan: admission UA highly suggestive urine culture with Klebsiella on antibiotics (5) Hypertension: Code(s): I10 - Essential (primary) hypertension Status: Chronic Assessment and Plan: reasonable control follow trend of hemodynamics (6) Anemia: Code(s): D64.9 - Anemia, unspecified Status: Chronic Assessment and Plan: H/H in range for a dialysis patient Epogen with HD (7) Insulin dependent type 2 diabetes mellitus: Code(s): E11.9 - Type 2 diabetes mellitus without complications; Z79.4 - [facility] (current) use of insulin Status: Chronic Assessment and Plan: follow accu-cheks glycemic control per hospitalists Will continue to follow. Subjective Date/time seen: 05/08/23 14:09 Interval history: Follow-up for end stage renal disease on hemodialysis. Tolerating dialysis treatment at the time of my visit (seen on HD at 2:00PM); no apparent distress noted; seems to be feeling reasonably well; still reports weakness/fatigue and associated weakness with ambulation still; no events overnight or earlier this AM. Exam Narrative: General: WD/WN female in NAD Heart: normal S1 and S2; no rub Lungs: clear bilaterally Abdomen: soft, nontender, nondistended, positive bowel sounds Extremities: no cyanosis or clubbing; no edema Skin: warm and dry Objective Data Vital Signs Vital Signs: Vital Signs Temp Pulse Resp BP Pulse Ox O2 Del Method 05/08/23 14:00 57 L 164/75 H 05/08/23 13:45 56 L 156/74 H 05/08/23 13:15 57 L 168/80 H 05/08/23 13:30 57 L 167/71 H 05/08/23 12:47 97.4 F L 60 16 160/75 H 05/08/23 12:45 60 157/78 H 05/08/23 08:00 Room Air 05/08/23 08:43 64 05/08/23 06:00 97.6 F 60 18 151/62 H 97 05/07/23 20:00 Room Air 05/07/23 20:09 98.2 F 64 18 138/62 93 Intake/Output Intake/Output: Intake & Output 05/05/23 05/06/23 05/07/23 05/08/23 23:59 23:59 23:59 23:59 Intake Total 850 880 960 690 Output Total 2000 0 0 2000 Balance -1150 880 960 -1310 Meds/Results Medications: Active Medications Generic Name Dose Route Start Last Admin Trade Name Freq PRN Reason Stop Dose Admin Acetaminophen 650 mg 05/03/23 15:35 05/08/23 10:28 Acetaminophen 325 Mg Tablet PO 650 mg Q6H PRN Administration Mild Pain (1-3) or Fever Acetaminophen 650 mg 05/03/23 20:54 Acetaminophen 650 Mg Suppository RECTAL Q6H PRN Mild Pain (1-3) or Fever Allopurinol 100 mg 04/29/23 09:00 05/08/23 08:43 Allopurinol 100 Mg Tablet PO 100 mg DAILY MICHELL Administration Apixaban 2.5 mg 04/29/23 09:00 05/08/23 17:27 Apixaban 2.5 Mg Tablet PO 2.5 mg BID MICHELL Administration Atorvastatin Calcium 20 mg 04/29/23 09:00 05/08/23 08:43 Atorvastatin 20 Mg Tablet PO 20 mg DAILY MICHELL Administration
--- NOTE | 2023-05-08 14:09 | P.PNNP_ITS ---
Progress Note: A&P Assessment and Plan (1) End-stage renal disease (ESRD): Onset Date: Unknown Code(s): N18.6 - End stage renal disease Status: Chronic Assessment and Plan: * HD today * follow electrolytes, volume status, and clearance * continue T/T/S outpatient dialysis schedule (2) Panniculitis: Code(s): M79.3 - Panniculitis, unspecified Status: Acute Assessment and Plan: * as evidenced by exam findings * blood cultures negative so far. * atient is on oral antibiotics * local wound care (3) Neurological deficit, transient: Code(s): R29.818 - Other symptoms and signs involving the nervous system Status: Acute Assessment and Plan: * as evidenced by garbled speech and facial numbness (on 05/01/23) * extensive imaging done with no acute findings * Neurology recommendations noted * follow neurological status * PT/OT as tolerated (4) Urinary tract infection: Code(s): N39.0 - Urinary tract infection, site not specified Status: Acute Assessment and Plan: * admission UA highly suggestive * urine culture with Klebsiella * on antibiotics (5) Hypertension: Code(s): I10 - Essential (primary) hypertension Status: Chronic Assessment and Plan: * reasonable control * follow trend of hemodynamics (6) Anemia: Code(s): D64.9 - Anemia, unspecified Status: Chronic Assessment and Plan: * H/H in range for a dialysis patient * Epogen with HD (7) Insulin dependent type 2 diabetes mellitus: Code(s): E11.9 - Type 2 diabetes mellitus without complications; 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 Subjective Date/time seen: 05/08/23 14:09 Interval history: Follow-up for end stage renal disease on hemodialysis. Tolerating dialysis treatment at the time of my visit (seen on HD at 2:00PM); no apparent distress noted; seems to be feeling reasonably well; still reports weakness/fatigue and associated weakness with ambulation still; no events overnight or earlier this AM. Exam Narrative: General: WD/WN female in NAD Heart: normal S1 and S2; no rub Lungs: clear bilaterally Abdomen: soft, nontender, nondistended, positive bowel sounds Extremities: no cyanosis or clubbing; no edema Skin: warm and dry Objective Data Vital Signs Vital Signs: Vital Signs Temp Pulse Resp BP Pulse Ox O2 Del Method 05/08/23 14:00 57 L 164/75 H 05/08/23 13:45 56 L 156/74 H 05/08/23 13:15 57 L 168/80 H 05/08/23 13:30 57 L 167/71 H 05/08/23 12:47 97.4 F L 60 16 160/75 H 05/08/23 12:45 60 157/78 H 05/08/23 08:00 Room Air 05/08/23 08:43 64 05/08/23 06:00 97.6 F 60 18 151/62 H 97 05/07/23 20:00 Room Air 05/07/23 20:09 98.2 F 64 18 138/62 93 Intake/Output Intake/Output: Intake & Output 05/05/23 05/06/23 05/07/23 05/08/23 23:59 23:59 23:59 23:59 Intake Total 850 880 960 690 Output Total 2000 0 0 1999 Balance -1150 880 960 -1310 Meds/Results
[2023-05-08 14:11] LABS: Red Blood Cell Folate 662 ng/mL RBC (>280)
--- NOTE | 2023-05-08 17:07 | PM.DS ---
DS: Admitting Diagnosis Discharge Date 05/08/23 Admitting Diagnosis (1) Neurological deficit, transient: ?Code(s): R29.818 - Other symptoms and signs involving the nervous system ?Status:?Acute (2) Panniculitis: ?Code(s): M79.3 - Panniculitis, unspecified ?Status:?Acute (3) ESRD on hemodialysis: ?Code(s): N18.6 - End stage renal disease; Z99.2 - Dependence on renal dialysis ?Status:?Acute (4) Diabetes: ?Qualifiers: ? E11.9 - Type 2 diabetes mellitus without complications ?Status:?Acute (5) Acute encephalopathy: ?Code(s): G93.40 - Encephalopathy, unspecified ?Status:?Acute DS: Discharge Diagnosis Discharge Diagnosis (1) Neurological deficit, transient: Code(s): R29.818 - Other symptoms and signs involving the nervous system Status: Acute (2) Panniculitis: Code(s): M79.3 - Panniculitis, unspecified Status: Acute (3) ESRD on hemodialysis: Code(s): N18.6 - End stage renal disease; Z99.2 - Dependence on renal dialysis Status: Acute (4) Diabetes: Qualifiers: Diabetes mellitus type: type 2 Diabetes mellitus intermediate manager insulin use: with retirement use Diabetes mellitus complication status: with kidney complications Diabetes mellitus complication detail: with chronic kidney disease Chronic kidney disease stage: on chronic dialysis Qualified Code(s): E11.22 - Type 2 diabetes mellitus with diabetic chronic kidney disease; N18.6 - End stage renal disease; Z79.4 - intermediate manager (current) use of insulin; Z99.2 - Dependence on renal dialysis Code(s): E11.9 - Type 2 diabetes mellitus without complications Status: Acute (5) Acute encephalopathy: Code(s): G93.40 - Encephalopathy, unspecified Status: Acute DS: Summary Hospital Course Hospital Course: Per H&P, this is a 73-year-old female with past medical history significant for end-stage renal disease on hemodialysis, insulin-dependent diabetes mellitus, generalized anxiety disorder, diabetic neuropathy, venous stasis, gastroesophageal reflux disease, grade 2 diastolic dysfunction, megaloblastic anemia, peripheral artery disease, 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 Patient presents to the emergency room with complaints of abdominal wall redness fall although yosef rash redness swelling and tenderness of 2 weeks duration. patient denies any fevers, rigors, chills, nausea, vomiting has had generalized weakness has been unable to leave the house and has [facility] 2 dialysis treatments.? A chemistry panel was significant for BUN 61 creatinine of 10.? The following issues have been addressed during hospitalization (1) Panniculitis: ?Code(s): M79.3 - Panniculitis, unspecified ?Status:?Acute ?Assessment and Plan: 04/29/23: Does not meet Sepsis criteria. Visible on CT scan. Consistent with elevated CRP and Sed Rate Continue Vancomycin therapy Tolnaftate powder and Betamethasone cream topically to affected areas topically. Trend labs and VS. PRN pain meds. 04/30/23: Blood cultures showing no growth to date Continue with current treatment plan 05/01/23: Blood culture showing no growth today Continue with current treatment plan 05/02/23: Blood cultures still showing no growth on preliminary 05/03: Patient has some doxycycline 100 mg q.12 hours p.o., follow-up procalcitonin Completed treatment with antibiotics (2) Neurological deficit present: ?Code(s): Improved Acute encephalopathy. improved 05/03 When I saw exam patient, patient was somnolent, patient was able to move all extremities, not oriented x3 Likely secondary to polypharmacy, patient has psychiatric disorders, on multiple medications including BuSpar, Seroquel, trazodone, patient is also on Benadryl, morphine and Dilaudid lorazepam pain IV needed Hold medications with side effects of sedation Neuro check 05/04: After holding the medications mentioned above ye
[2023-05-08 17:24] LABS: Glucose Point of Care 112 mg/dl (65-105)
[2023-05-08] MEDS: lisinopriL 10 MG TABLET PO (18:29)
--- NOTE | 2023-05-08 21:43 | PC.NURSE ---
Attempted to call [facility] to inform them of patient leaving in ambulance. No answer.
== END 2023-05-08 21:44 | DRG 606 ==
LOC: ANHED 04-29 02:37 → ANH3MED 04-29 04:04
PROVIDERS: Internal Medicine; Internal Medicine Nephrology; Nurse Practitioner Acute Care; Nurse Practitioner Adult Health; Student in an Organized Health Care Education/Training Program; Admitting Provider Internal Medicine; Emergency Provider Physician Assistant; PCP Internal Medicine; Visit Provider Hospitalist
DX: M79.3 Panniculitis, unspecified (principal); G92.8 Other toxic encephalopathy; N18.6 End stage renal disease; I12.0 Hypertensive chronic kidney disease with stage 5 chronic kidney disease or end stage renal disease; L03.314 Cellulitis of groin; I69.354 Hemiplegia and hemiparesis following cerebral infarction affecting left non-dominant side; Z68.41 Body mass index [BMI] 40.0-44.9, adult; N39.0 Urinary tract infection, site not specified; B96.1 Klebsiella pneumoniae [K. pneumoniae] as the cause of diseases classified elsewhere; B37.2 Candidiasis of skin and nail; R29.818 Other symptoms and signs involving the nervous system; E11.22 Type 2 diabetes mellitus with diabetic chronic kidney disease; N39.41 Urge incontinence; K21.9 Gastro-esophageal reflux disease without esophagitis; T50.995A Adverse effect of other drugs, medicaments and biological substances, initial encounter; E66.01 Morbid (severe) obesity due to excess calories; M81.0 Age-related osteoporosis without current pathological fracture; F41.8 Other specified anxiety disorders; E78.5 Hyperlipidemia, unspecified; M19.90 Unspecified osteoarthritis, unspecified site; D64.9 Anemia, unspecified; E11.621 Type 2 diabetes mellitus with foot ulcer; L97.529 Non-pressure chronic ulcer of other part of left foot with unspecified severity; E11.42 Type 2 diabetes mellitus with diabetic polyneuropathy; E11.319 Type 2 diabetes mellitus with unspecified diabetic retinopathy without macular edema; I73.9 Peripheral vascular disease, unspecified; Z89.511 Acquired absence of right leg below knee; Z99.2 Dependence on renal dialysis; Z98.42 Cataract extraction status, left eye; Z98.41 Cataract extraction status, right eye; Z90.710 Acquired absence of both cervix and uterus; Z90.722 Acquired absence of ovaries, bilateral; Z79.4 Long term (current) use of insulin
CPT/HCPCS: 36415; 36600; 70450; 70496; 70498; 70553; 71045; 74176; 80053; 80069; 80202; 81001; 82140; 82375; 82607; 82747; 82805; 82948; 83036; 83050; 83605; 83735; 84100; 84145; 84443; 85025; 85055; 85652; 86140; 86706; 87040; 87086; 87186; 87340; 87641; 92610; 92611; 93005; 93970; 93971; 94762; 95816; 96365; 96366; 96375; 96376; 97110; 97161; 97166; 97530; 99285; A9270; A9577; G0257; G0378; J0696; J1200; J1815; J2060; J2270; J2405; J3370; J7030; P9047; Q9967

== ENCOUNTER 2023-06-06 04:40 | Emergency (ER) | payer MEDICARE, SELFPAY ==
--- NOTE | ~2023-06-06 | CT_ITS ---
Non-contrast CT scan of the Abdomen and Pelvis Clinical indication: Abdominal pain Technique: 2.5 mm axial scans were obtained through the abdomen and pelvis without intravenous or or al contrast. Dose reduction technique was used on this scan by utilizing automated exposure control a nd iterative reconstruction technique. The dose-length product (DLP) was 2574.10 mGy-cm. Findings: Images through the lung bases reveal no abnormalities. Cardiomegaly noted. There is no evidence of renal or ureteral calculi. The kidneys and the ureters are nondilated. The liver, spleen, pancreas, and adrenals appear normal. Probable small layering gallstones. There ar e atherosclerotic calcifications of the aorta. There is no evidence of bowel obstruction. Small fat-containing umbilical hernia present. Images through the pelvis were performed. There is no evidence of ascites or lymphadenopathy. Urinary bladder unremarkable. No pelvic mass seen. Impression: Probable cholelithiasis. Small fat-containing umbilical hernia. Reviewed, dictated and finalized at [facility]. Impression: Probable cholelithiasis. Small fat-containing umbilical hernia.
[2023-06-06 04:42] VITALS: BP 156/60; PULSE 70; RESP 19; TEMP 36.8; O2SAT 100
[2023-06-06 04:46] VITALS: BP 156/60; PULSE 71; RESP 18; O2SAT 100
[2023-06-06] MEDS: MORPHINE SULFATE (*CRX) 4 MG/ML INJ IV PUSH (05:08)
[2023-06-06 05:09] VITALS: BP 169/65; PULSE 70; RESP 18; O2SAT 100
--- NOTE | 2023-06-06 05:10 | ED.GENADULT ---
HPI - General Adult General Chief complaint: Back Pain/Injury Stated complaint: back pain Time Seen by Provider: 06/06/23 04:47 History of Present Illness HPI narrative: Patient 73-year-old female presents emergency department with chief complaint of abdominal pain and right lower quadrant and right flank pain. The patient reports that now the emergency departments had multiple skin infections and reports she also has gallstones exposed to see surgery. Patient reports that the pain is worsened with movement and improved with rest Related Data Home Medications Medication Instructions Recorded Confirmed blood-glucose meter,continuous 10/27/22 05/09/23 (Dexcom G6 [employer]) blood-glucose sensor (Dexcom G6 10/27/22 05/09/23 Sensor device) Allergies Allergy/AdvReac Type Severity Reaction Status Date / Time fentanyl Allergy Hives Verified 04/26/23 09:49 seroquel AdvReac Severe Loss of Uncoded 05/09/23 13:17 Consciousness trazodone AdvReac Severe Loss of Uncoded 05/09/23 13:17 Consciousness Review of Systems Review of Systems: A 10 system review of systems was completed on the patient and is negative except for what is stated in the HPI. Nursing and ancillary documentation was reviewed. [facility] Past Medical History Medical History Anxiety and depression Arthritis Benign thyroid cyst Evaluated by ultrasound a couple of years ago per patient report. Cerebrovascular accident Due to embolic event following a shoulder fracture 2016 with chronic mild left-sided weakness. Chronic venous stasis dermatitis of both lower extremities Contusion of ankle, left Diabetic gastroparesis Diabetic neuropathy Diabetic retinopathy of both eyes End-stage renal disease on hemodialysis Previously on peritoneal dialysis. Gastroesophageal reflux disease Gout Grade II diastolic dysfunction Noted on echo on 07/04/2019. EF 55-60%. Hyperlipidemia Hypertension Infarction of liver (07/07/19) Insulin dependent type 2 diabetes mellitus A1c was 8.9% on 09/08/2020. 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 Morbid obesity Osteomyelitis of right foot Osteoporosis Peripheral arterial disease (Unknown) Retinal detachment Shingles Splenic infarct (07/07/19) Venous stasis dermatitis of both lower extremities Surgical History Surgical History History of bilateral cataract extraction (2009) History of total hysterectomy with bilateral salpingo-oophorectomy (BSO) For benign ovarian mass. Proliferative diabetic retinopathy with history of surgery Status post below knee amputation of right lower extremity (12/2020) Status post excisional debridement (~10/2020) Debridement of diabetic foot ulcer and osteomyelitis of right foot. Status post glaucoma surgery Surgically constructed arteriovenous fistula (2015) Family History Family History Sibling Family history of alcoholism Mother Metastatic colon cancer in female Father Cancer Of the neck due to chemical exposure Son Motor vehicle collision Her 2nd youngest son Heroin overdose Her youngest son Social History Social History Social History: Surrogate decision maker: Satya Rodriguez, son. Code status: Full code. Smoking status: Never smoker Second hand tobacco smoke exposure: No Alcohol intake: never Substance use: never Substance use type: does not use Do You Feel Safe in your Home?: Yes Lack of Transportation: No Lack of Food: Never True Current Housing: I Have Housing Concerned About Future Housing: No Difficulty Paying Gas/Electric Bills:
[2023-06-06 05:15] VITALS: BP 199/81; PULSE 69; RESP 18; O2SAT 98
[2023-06-06 05:15] LABS: Basophils Percent Auto 0.5 % (0.2-1.2); Eosinophils Absolute Auto 0.1 K/mm3 (0-0.3); Eosinophils Percent Auto 1.7 % (0-4.4); Hematocrit 38.4 % (37.0-47.0); Hemoglobin 12.2 g/dL (12.0-15.0); Immature Granulocyte Absolute 0.03 K/mm3 (0.00-0.031); Immature Granulocyte Percent A 0.4 % (0-0.5); Lymphocytes Percent Auto 10.5 % (18.3-44.2); Mean Corpuscular HGB Conc 31.8 g/dl (32-36); Mean Corpuscular Hemoglobin 31.4 pg (26-34); Mean Corpuscular Volume 98.7 fl (80-100); Monocytes Absolute Auto 0.7 K/mm3 (0.1-0.6); Monocytes Percent Auto 8.8 % (2.6-8.5); Neutrophils Absolute Auto 5.9 K/mm3 (1.3-6.7); Neutrophils Percent Auto 78.1 % (45.5-73.1); Platelet Count Result 180 k/mm3 (150-375); Red Blood Count 3.89 M/mm3 (4.2-5.4); Red Cell Distribution Width 17.6 % (11.5-14.5); White Blood Count 7.6 K/mm3 (4.5-10.0)
[2023-06-06 05:25] LABS: Alanine Aminotransferase 25 U/L (6-35); Albumin Level 3.2 g/dL (3.5-5.1); Alkaline Phosphatase 212 U/L (38-126); Anion Gap 5 mmol/L (8-16); Aspartate Amino Transferase 32 U/L (14-36); Blood Urea Nitrogen 19 mg/dL (7-17); Carbon Dioxide 37 mmol/L (22-30); Chloride 95 mmol/L (98-107); Estimated CRCL calculation 13 ml/min; Estimated Glomerular Filt Rate 12; Glucose 118 mg/dL (65-110); Lactic Acid Reflex 1.5 mmol/L (0.7-2.0); Potassium 3.2 mmol/L (3.4-5.0); Sodium 137 mmol/L (137-145)
--- NOTE | 2023-06-06 05:38 | PC.NURSE ---
Pt to ed with Rt BKA, raised, red, macerated skin from waist to mid thigh. Pt states They normally put a salve on my butt and a powder on my front fold. Upon depend change a salve was used to all areas with red, raised, macerated skin.
[2023-06-06 06:56] VITALS: PULSE 67; RESP 16; O2SAT 95
--- NOTE | 2023-06-06 07:06 | PC.NURSE ---
Pt continues to ask for pain medication at this time. ERP has been notified and pt updated that she will not receive any more pain medications at this time. Pt continued to ask for po pain meds for discharge.
[2023-06-06 07:15] VITALS: PULSE 77; RESP 17; O2SAT 98
--- NOTE | 2023-06-06 07:16 | PC.NURSE ---
pt continues to voice being upset that the patient is not being prescribed any home pain medications. Specifically request norco/hydrocodone or morphine pills and antibiotics.
--- NOTE | 2023-06-06 07:17 | PC.NURSE ---
report given to [facility] at this time for transport home.
== END 2023-06-06 07:17 | disposition home or self-care (01) ==
PROVIDERS: Emergency Provider Emergency Medicine; PCP Internal Medicine
DX: R10.31 Right lower quadrant pain (principal); Z86.73 Personal history of transient ischemic attack (TIA), and cerebral infarction without residual deficits; E11.22 Type 2 diabetes mellitus with diabetic chronic kidney disease; I12.0 Hypertensive chronic kidney disease with stage 5 chronic kidney disease or end stage renal disease; N18.6 End stage renal disease; Z99.2 Dependence on renal dialysis; E78.5 Hyperlipidemia, unspecified; E66.01 Morbid (severe) obesity due to excess calories; Z68.41 Body mass index [BMI] 40.0-44.9, adult
CPT/HCPCS: 36415; 74176; 80053; 83605; 85025; 96374; 99284; J2270

== ENCOUNTER 2023-06-23 14:45 | Inpatient (IN) | payer MEDICARE, SELFPAY ==
[2023-06-12 08:59] VITALS: BMI 32.5
--- NOTE | 2023-06-12 09:33 | PC.NURSE ---
Report to the Outpatient Waiting Room, entrance under the green pavilion located off [facility], at time __12:30 on date ___06/22/23____. Planned Procedure Time: ___2:30PM . Time changes happen often and if your time is changed the preop area will call you the afternoon before. - You and your visitor will be asked to self-screen and do not enter if you have any COVID symptoms. - A mask is optional within the hospital at this time. Patients may have clear liquids (water, carbonated beverages, clear teas, apple juice) until 3 hours prior to surgery with a maximum of 20 ounces. - No food from midnight until time of surgery. Take the following medications with a SIP of water the morning of surgery: ___BUPROPION & CARVEDILOL. MAY TAKE HYDROCODONE NEEDED FOR PAIN. DO NOT STOP ANY OF YOUR OTHER PRESCRIPTION MEDICATIONS PRIOR TO SURGERY ?EXCEPT THE FOLLOWING Medications to discontinue per physician ___HOLD ELIQUIS 5 DAYS PRE-OP PER DR MCALLISTER Date to take last dose____06/16/23 Please no make-up, nail uzbek, hairspray, perfume, deodorant, or body powder the day of surgery. No jewelry (including any body piercings) or valuables the day of surgery, leave them at home. Please take a shower or bath the night before, or the morning of, surgery with an antibacterial soap. Wear comfortable, loose fitting clothing. - Jewelry must be removed prior to entering the operating room. Rings and piercings that are not removed may be cut off. - The hospital will not accept responsibility for valuables. - Please leave all valuables, including medications, at home the day of surgery. If you are going home after surgery, a licensed pile driver operator must drive you home. - NO public transportation without another adult if you receive anesthesia. - We recommend that an adult stay with you for 24 hours following discharge. - We also recommend that you do not drive, make important decision, drink alcoholic beverages, or take any drugs that were not prescribed by your health care provider for at least 24 hours after your discharge time. Follow any additional instructions given to you from your surgeon. If you or anyone in your household have experienced Covid symptoms in the past week, please notify your surgeon or the nurse liaison at the phone number below for possible testing. Telephone instructions given to ____PATIENT and asked if any additional questions and then verbalized understanding. Patient advised to call surgeon office or pre surgery nurse liaison [phone] if any additional questions.
[2023-06-22] VITALS (15 sets, daily range): BP systolic 137–168; BP diastolic 51–105; PULSE 53–70; RESP 12–20; TEMP 36.1–36.6; O2SAT 93–100
[2023-06-22] MEDS: ACETAMINOPHEN 500 MG TABLET 1000 MG PO (12:07)
[2023-06-22] MEDS: SODIUM CHLORIDE 0.9% IV 500 ML 30 ML IV CONT (12:20)
[2023-06-22 12:23] LABS: Glucose Point of Care 132 mg/dl (65-105)
[2023-06-22 12:43] LABS: Partial Thromboplastin Time 33.8 Seconds (22.3-36.8)
[2023-06-22 12:45] LABS: Amylase 61 U/L (30-110); Lipase 57 U/L (23-300)
--- NOTE | 2023-06-22 12:56 | WPDHPUPDATE1 ---
History and Physical Update Update Date/Time: 06/22/23 12:56 History and Physical has been reviewed, including an updated exam of the patient. There are NO changes in the patient's condition. Risks, benefits, and alternatives have been discussed and questions answered. Patient agrees to proceed with procedure.
--- NOTE | 2023-06-22 13:07 | WPDANESEPPF ---
Anes - Initial Pre Proc Eval Procedure: Operation Date: 06/22/23 13:30 Proposed Procedures p Laparoscopic Cholecystectomy Intraoperative Cholangiogram, Possible Open - Felipe Gann DO Date/Time: 06/22/23 13:07 Surgeon: Felipe Gann DO Pre Op Diagnosis: symptomatic cholelithiasis Patient Data Age: 73 Gender: F Height: 1.59 m Weight: 100.3 kg Last Vital Signs Temp 97.7 F 06/22/23 12:33 Pulse 67 06/22/23 12:33 Resp 20 06/22/23 12:33 BP 165/105 H 06/22/23 12:33 Pulse Ox 100 06/22/23 12:33 O2 Del Method Room Air 06/22/23 12:33 Allergies Allergy/AdvReac Type Severity Reaction Status Date / Time fentanyl Allergy Hives Verified 06/22/23 11:50 seroquel AdvReac Severe Loss of Uncoded 06/22/23 11:50 Consciousness trazodone AdvReac Severe Loss of Uncoded 06/22/23 11:50 Consciousness Home Medications Medication Instructions Recorded Confirmed Type blood-glucose meter,continuous 10/27/22 06/11/23 History (Dexcom G6 [employer]) blood-glucose sensor (Dexcom G6 10/27/22 06/11/23 History Sensor device) acetaminophen 325 mg tablet 650 mg PO Q6H PRN Mild Pain (1-3) 05/22/23 06/12/23 Rx Or Fever #30 tabs allopurinol 100 mg tablet 100 mg PO DAILY@0800 #30 tabs 05/22/23 06/22/23 Rx apixaban 2.5 mg tablet (Eliquis) 2.5 mg PO Q12HR #60 tabs 05/22/23 06/22/23 Rx atorvastatin 20 mg tablet 20 mg PO DAILY #30 tabs 05/22/23 06/22/23 Rx calcium acetate(phosphat bind) 667 667 mg PO TIDWM #90 tabs 05/22/23 06/22/23 Rx mg tablet hydrocodone 5 mg-acetaminophen 325 1 tablet PO Q6H PRN Pain Rated 6 05/22/23 06/12/23 Rx mg tablet Or Greater #12 tabs bupropion HCl 150 mg tablet,12 hr 150 mg PO QAM 06/12/23 06/22/23 History sustained-release (Wellbutrin SR) carvedilol 12.5 mg tablet (Coreg) 12.5 mg PO Q12HR 06/12/23 06/22/23 History polyethylene glycol 3350 17 gram 17 g PO QAM PRN Constipation 06/12/23 06/12/23 History oral powder packet (Miralax) Laboratory Tests 06/22/23 06/22/23 12:19 12:25 PT 14.0 Seconds (11.1-14.7) INR 1.0 APTT 33.8 Seconds (22.3-36.8) Sodium 133 L mmol/L (137-145) Potassium 3.1 L mmol/L (3.4-5.0) Chloride 93 L mmol/L (98-107) Carbon Dioxide 34 H mmol/L (22-30) Anion Gap 6 mmol/L (4-12) BUN 17 mg/dL (7-17) Creatinine 3.60 H mg/dL (0.7-1.0) Estim Creat Clear Calc 14 ml/min Estimated GFR 12 L (59 - ) Glucose 130 H mg/dL (65-110) POC Capillary Glucose 132 H mg/dl (65-105) Calcium 8.0 L mg/dL (8.4-10.2) Amylase 61 U/L (30-110) Lipase 57 U/L (23-300) Patient hx anesthesia problems: other (pt reports that one time she woke up having delusions after surgery. ) Family hx anesthesia problems: none Results Review: All pre-operative results and documents have been reviewed as part of the pre-operative evaluation. [facility] Past Medical History Medical History Anxiety and depression Arthritis Benign thyroid cyst Evaluated by ultrasound a couple of years ago per patient report. Cerebrovascular accident Due to embolic event following a shoulder fracture 2016 with chronic mild left-sided weakness. Chronic venous stasis dermatitis of both lower extremities Contusion of ankle, left Diabetic gastroparesis Diabetic neuropathy Diabetic retinopathy of both eyes End-stage renal disease on hemodialysis Previously on peritoneal dialysis. Gastroesophageal reflux disease Gout Grade II diastolic dysfunction Noted on echo on 07/04/2019. EF 55-60%. Hyperlipidemia Hypertension Infarction of liver (07/07/19) Insulin dependent type 2 diabetes mellitus A1c was 8.9% on 09/08/2020. 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
[2023-06-22] MEDS: ceFAZolin 2 GM/D5W 50 ML 2 GM/50 ML BAG IVPB (13:14)
[2023-06-22] MEDS: BUPIVACAINE/EPINEPHRINE 0.5% 10 ML VIAL 30 ML INFILTRATE (13:48)
[2023-06-22 13:52] LABS: Anion Gap 10 mmol/L (4-12); Blood Urea Nitrogen 18 mg/dL (7-17); Calcium 8.3 mg/dL (8.4-10.2); Carbon Dioxide 31 mmol/L (22-30); Chloride 94 mmol/L (98-107); Estimated CRCL calculation 14 ml/min; Estimated Glomerular Filt Rate 12; Glucose 136 mg/dL (65-110); Potassium 3.1 mmol/L (3.4-5.0); Sodium 135 mmol/L (137-145)
--- NOTE | 2023-06-22 14:45 | W.PM.PROC2 ---
Procedure Note - Detailed Date of Procedure 06/22/23 Pre-op Diagnosis symptomatic cholelithiasis Post-op Diagnosis Same Procedure Performed Laparoscopic Cholecystectomy with intraoperative cholangiogram Surgeon Felipe Gann, DO Anesthesia General and Local (0.5% bupivacaine) Indications This is a 73-year-old woman who is presented with intermittent right upper quadrant abdominal pains after eating for the past several months. She notices increased symptoms with eating fried or fatty food. Previous workup is showed evidence of cholelithiasis. She also had a slightly elevated bilirubin level. Discussions were made with the patient about treatment options and decision was made to proceed with laparoscopic cholecystectomy with intraoperative cholangiogram. Findings Laparoscopic cholecystectomy with cholangiogram was performed. The patient's gallbladder had some chronic wall thickening but the cystic duct appeared normal in size. There was some thick sludge bile within the cystic duct and some granular gallstone fragments. Intraoperative cholangiogram was obtained using Omnipaque contrast. The contrast was identified entering into the duodenum, but there did appear to be a possible small 5 mm defect within the common bile duct. The images were sent to the radiologist for interpretation. The gallbladder was removed and sent to the lab for pathology. Description of Procedure Procedure as well as risks, benefits, and alternatives were discussed with patient. Written consent was obtained and placed in chart prior to procedure. The patient was brought back to surgical suite. Patient was placed in supine position on operating table. Time-out was done to confirm patient and procedure. Patient was then intubated by the anesthesia department. Abdomen was prepped and draped in sterile fashion using chlorhexidine prep. 0.5% bupivacaine with epinephrine was infiltrated at each site of incision. A 5 millimeter incision was made near the umbilicus, and a 5 millimeter Optiview trocar was advanced through the abdominal layers under direct visualization. Once inside the abdominal cavity, carbon dioxide was insufflated to create a pneumoperitoneum. The camera was inserted and the abdomen was inspected. No immediate abnormalities were identified. The patient was placed in reverse Trendelenburg position and rotated slightly to the left. An 11 millimeter incision was made in the subxiphoid region, and an 11 millimeter trocar was inserted under direct visualization. Two 5 millimeter incisions were made in the right upper quadrant, and two 5 millimeter trocars were inserted under direct visualization. The gallbladder was identified and grasped at the fundus and retracted superiorly. It was then grasped at the infundibulum retracted laterally. Careful dissection around the neck of the gallbladder was performed using blunt dissection with a [place] grasper and hook electrocautery. The cystic duct was identified, and a window was created behind it. The cystic artery was also identified and a window was created behind it. The critical view of safety was identified, visualizing the cystic duct running directly into the neck of the gallbladder, and the cystic artery running directly into the wall of the gallbladder. A 5 millimeter clip wastewater operator was then used to place 2 clips proximally and 1 clip distally on the cystic artery. It was then transected using endoscopic scissors. A Mcarthur clamp was then placed across the distal neck of the gallbladder and the Mcarthur cholangiocatheter was advanced into the cystic duct. Bile was able to be aspirated and the catheter flushed with saline with ease. The patient was flattened out in bed and a cholangiogram was obtained using Omnipaque contrast and fluoroscopy. The images were sent to radiologist for interpretation. The patient was placed back in reverse Trendelenburg position. A 5 mm Endoclip wastewater operator was then used to place 2 clips
[2023-06-22 15:11] LABS: Glucose Point of Care 173 mg/dl (65-105)
--- NOTE | 2023-06-22 16:08 | ADMGEN ---
This patient, Kelley Rodriguez, was admitted to 2 Medical Room 240-01. Patient/family oriented to hospital policies and general routines including ID bracelet, bed and alarms, visiting hours, pain management, procedures, bathroom and other care routines, personal items, smoking policy, room service/diet, and visiting hours. Information on how to activate the Rapid Response Team has been discussed. Patient/Family are encouraged to report perceived risks to care and to ask questions if they do not understand what they are told or what they should do.
[2023-06-22] MEDS: LACTATED RINGERS 1,000 ML 100 ML IV CONT (16:29)
[2023-06-22] MEDS: CALCIUM ACETATE 667 MG TABLET PO (16:59)
[2023-06-22 19:41] LABS: Glucose Point of Care 279 mg/dl (65-105)
[2023-06-22] MEDS: carvediloL 12.5 MG TABLET PO (20:36)
[2023-06-22] MEDS: HYDROcodone/acetaminophen (*CRX) 5-325 MG TABLET 1 TAB PO (23:52)
[2023-06-23] VITALS (28 sets, daily range): BP systolic 128–173; BP diastolic 53–94; PULSE 61–72; RESP 16–20; TEMP 36.1–37; O2SAT 91–100
--- NOTE | ~2023-06-23 | XR_ITS ---
XR chest 1V portable DATE: 06/23/2023 06:45 INDICATION: ESRD TECHNIQUE: Portable AP view on 06/23/2023 at 0633 hours COMPARISON: 05/08/2023 portable AP chest FINDINGS: Cardiomegaly. Pulmonary vascular congestion and redistribution. There are mild infiltrate s and/or atelectasis in the mid and to greater extent lower lung zones. Aortic calcification. Diffuse osteopenia. IMPRESSION: Congestive heart failure and new bilateral mild mid and lower lung infiltrate and/or atel ectasis since 05/08/2023. Reviewed, dictated and finalized at location A. IMPRESSION: Congestive heart failure and new bilateral mild mid and lower lung infiltrate and/or atelectasis since 05/08/2023.
--- NOTE | ~2023-06-23 | XR_ITS ---
EXAMINATION: XR cholangiogram surg 1st inj DATE: 06/22/2023 14:23 INDICATION: Cholelithiasis. TECHNIQUE: 86 fluoroscopic images of the right upper quadrant were obtained during intraoperative cho langiography performed by the surgeon. I was not present in the operating room. Fluoroscopy exposure time was 14 seconds. COMPARISON: CT abdomen and pelvis 06/06/2023 FINDINGS: The catheter is in the cystic duct. There is contrast opacification of the biliary tree. Th ere is a 5 mm filling defect in the common duct. Contrast passes to the duodenum. IMPRESSION: 1. 5 mm filling defect in the common duct, which may be a stone. Reviewed, dictated and finalized at location A.
[2023-06-23 04:04] LABS: Hematocrit 40.3 % (37.0-47.0); Hemoglobin 12.6 g/dL (12.0-15.0); Mean Corpuscular HGB Conc 31.3 g/dl (32-36); Mean Corpuscular Hemoglobin 30.6 pg (26-34); Mean Corpuscular Volume 97.8 fl (80-100); Platelet Count Result 148 k/mm3 (150-375); Red Blood Count 4.12 M/mm3 (4.2-5.4); Red Cell Distribution Width 17.9 % (11.5-14.5); White Blood Count 7.9 K/mm3 (4.5-10.0)
[2023-06-23] MEDS: HYDROcodone/acetaminophen (*CRX) 5-325 MG TABLET 1 TAB PO ×3 (04:15→15:40)
[2023-06-23 04:18] LABS: Alanine Aminotransferase 21 U/L (6-35); Albumin Level 2.9 g/dL (3.5-5.1); Alkaline Phosphatase 149 U/L (38-126); Anion Gap 9 mmol/L (4-12); Aspartate Amino Transferase 39 U/L (14-36); Bilirubin,Total 1.5 mg/dL (0.2-1.3); Blood Urea Nitrogen 21 mg/dL (7-17); Calcium 7.6 mg/dL (8.4-10.2); Carbon Dioxide 29 mmol/L (22-30); Chloride 94 mmol/L (98-107); Estimated CRCL calculation 13 ml/min; Estimated Glomerular Filt Rate 11; Glucose 248 mg/dL (65-110); Potassium 3.6 mmol/L (3.4-5.0); Sodium 132 mmol/L (137-145)
[2023-06-23 05:36] LABS: Hepatitis B Surface Antigen Negative (Negative)
[2023-06-23 05:54] LABS: Hepatitis B Surface Anti Res Positive
[2023-06-23 08:13] LABS: Glucose Point of Care 214 mg/dl (65-105)
[2023-06-23] MEDS: buPROPion HCL SR (12 HR) 150 MG TAB PO (08:31)
[2023-06-23] MEDS: carvediloL 12.5 MG TABLET PO ×2 (08:31→20:59)
[2023-06-23] MEDS: ATORVASTATIN 20 MG TABLET PO (08:31)
[2023-06-23] MEDS: allopurinoL 100 MG TABLET PO (08:31)
[2023-06-23] MEDS: CALCIUM ACETATE 667 MG TABLET PO ×2 (08:31→17:32)
[2023-06-23] MEDS: INSULIN ASPART (*BKC) 100 UNITS/ML SUB-Q ×3 (08:31→20:58)
--- NOTE | 2023-06-23 08:36 | PM.CNNEP ---
Assessment and Plan Assessment and plan (1) End-stage renal disease (ESRD): Code(s): N18.6 - End stage renal disease Status: Chronic Assessment and Plan: HD will be done early this morning. Volume status looks pretty good. continue M/W/F dialysis schedule while in rehab (2) Hypertension: Code(s): I10 - Essential (primary) hypertension Status: Chronic Assessment and Plan: Systolic is running between 130 and 170. Some of this is explained by pain. On the same course of medications, and it generally runs between 130 and 160. Will follow this going forward. She is back on her blood pressure medicines. (3) Anemia: Code(s): D64.9 - Anemia, unspecified Status: Chronic Assessment and Plan: Hemoglobin is above 11. No need for EPO. (4) Insulin dependent type 2 diabetes mellitus: Code(s): E11.9 - Type 2 diabetes mellitus without complications; Z79.4 - intermediate (current) use of insulin Status: Chronic Assessment and Plan: She is getting Accu-Cheks. glycemic control per hospitalists \ (5) Renal osteodystrophy: Code(s): N25.0 - Renal osteodystrophy Status: Acute Assessment and Plan: Will check a phosphorus level in the morning (6) Hyponatremia: Code(s): E87.1 - Hypo-osmolality and hyponatremia Status: Chronic Assessment and Plan: Sodium level is low because of water drinking in a dialysis patient. (7) Epigastric pain: Code(s): R10.13 - Epigastric pain Status: Acute Assessment and Plan: Her abdominal discomfort led to the cholecystectomy. This is better except for her mild postoperative pain. History of Present Illness Reason for Consult Consult date: 06/23/23 Chief Complaint Chief complaint: symptomatic cholelithiasis History of Present Illness Narrative: Kelley is a very pleasant lady who has end-stage renal disease on dialysis 3 times a week on Tuesdays and Saturdays at [facility], gout, AFib, hyperlipidemia, hypertension, diabetes, history of panniculitis, anemia, and renal osteodystrophy. The patient had had nausea and vomiting. She was found have gallstones. She was seen by surgery and it was determined after testing that she needed a cholecystectomy. The patient came in the hospital for the elective cholecystectomy. This was done yesterday per laparoscopic. She feels better today. She is eating some liquids today. She says that she has not had any nausea or vomiting. She does have a little bit of abdominal discomfort from the procedure. Sugars have been okay. Blood pressures have been okay. She had her dialysis on . This went well. Review of Systems Constitutional: Constitutional: Reports no additional constitutional complaints Eyes: Eyes: Reports no additional eye complaints ENT: Reports system reviewed and no additional complaints, except as documented Cardiovascular: Cardiovascular: Reports no additional cardiovascular complaints Respiratory: Respiratory: Reports no additional respiratory complaints Gastrointestinal: Gastrointestinal: Reports no additional gastrointestinal complaints Genitourinary: Genitourinary: Reports no additional female genitourinary complaints Musculoskeletal: Musculoskeletal: Reports no additional musculoskeletal complaints Integumentary/Breasts: Skin/Breast: Reports system reviewed and no additional complaints, except as docu Neurologic: Reports system reviewed and no additional complaints, except as documented Psychiatric: Psychiatric: Reports no additional psychiatric complaints Endocrine: Endocrine: Reports no additional endocrine complaints [facility] Past Medical History Medical History Anxiety and depression Arthritis Benign thyroid cyst Evaluated by ultrasound a couple of years ago per patient report. Cerebrovascular acci
--- NOTE | 2023-06-23 09:44 | PC.NURSE ---
patient taken off of unit to dialysis
--- NOTE | 2023-06-23 11:30 | WPDPN ---
Progress Note: A&P Assessment and Plan (1) End-stage renal disease (ESRD): Code(s): N18.6 - End stage renal disease Status: Chronic Assessment and Plan: Patient is stable on her hemodialysis. Management by Dr. Garcia from Nephrology. (2) Symptomatic cholelithiasis: Code(s): K80.20 - Calculus of gallbladder without cholecystitis without obstruction Status: Acute Assessment and Plan: Postop day 1 after laparoscopic cholecystectomy. Intraoperative cholangiogram showed small retained common bile duct stone. For now she is doing very well. Total bilirubin 1.4 today. Will repeat the room tomorrow and if it is rising then will consult GI to see patient for possible ERCP. Decreases tomorrow and that she be discharged home with follow-up Dr. Aleksander bryant in the office to see if she would need a outpatient ERCP the future. Continue supportive management. Was advanced her to a regular renal diet. Subjective Date/time seen: 06/23/23 11:30 Interval history: In dialysis today. She is doing well. Seems to be hemodynamically stable on hemodialysis. Was tolerated clear liquids earlier today. Complaining of having some port site pain for which she got a pain pill. No nausea or vomiting. Operative findings on the cholangiogram showed a small common bile duct stone. Total bilirubin today is 1.4. Exam GI: Other: Abdomen is soft and obese. Port site incisions are healing well. Affected mild tenderness on palpation of the port sites. No bleeding or drainage from the port sites. Objective Data Vital Signs Vital Signs: Vital Signs - 24 hr 06/22/23 12:33 06/22/23 14:33 06/22/23 14:45 Temperature 36.5 C 36.3 C L Pulse Rate 67 53 L 63 Respiratory Rate 20 16 12 Blood Pressure 165/105 H 149/76 H 152/74 H Pulse Oximetry 100 100 99 Oxygen Delivery Room Air Simple Face Mask Simple Face Mask Oxygen Flow Rate 12 12 06/22/23 15:00 06/22/23 15:15 06/22/23 15:30 Temperature Pulse Rate 63 64 70 Respiratory Rate 14 16 15 Blood Pressure 149/67 H 164/69 H 145/64 H Pulse Oximetry 99 100 100 Oxygen Delivery Simple Face Mask Simple Face Mask Nasal Cannula Oxygen Flow Rate 12 12 2 06/22/23 15:45 06/22/23 16:31 06/22/23 16:12 Temperature 36.1 C L 36.2 C L Pulse Rate 65 64 Respiratory Rate 13 20 Blood Pressure 142/62 H 137/51 L Pulse Oximetry 100 93 97 Oxygen Delivery Nasal Cannula Nasal Cannula Oxygen Flow Rate 1 1 06/22/23 16:24 06/22/23 16:54 06/22/23 17:54 Temperature 36.3 C L 36.3 C L 36.2 C L Pulse Rate 63 66 69 Respiratory Rate 16 16 16 Blood Pressure 145/62 H 154/60 H 164/65 H Pulse Oximetry 95 97 96 Oxygen Delivery Oxygen Flow Rate 06/22/23 20:36 06/22/23 20:00 06/22/23 21:36 Temperature 36.6 C Pulse Rate 68 67 Respiratory Rate 20 Blood Pressure 168/62 H Pulse Oximetry 96 98 Oxygen Delivery Nasal Cannula Oxygen Flow Rate 1 06/23/23 01:06 06/23/23 05:28 06/23/23 08:23 Temperature 36.5 C 36.6 C Pulse Rate 70 65 68 Respiratory Rate 20 20 16 Blood Pressure 173/67 H 155/55 H 136/94 H Pulse Oximetry 100 100 100 Oxygen Delivery Oxygen Flow Rate 06/23/23 08:31 06/23/23 09:41 06/23/23 08:30 Temperature 36.6 C Pulse Rate 66 66 Respiratory Rate 18 Blood Pressure 147/69 H Pulse Oximetry 100 Oxygen Delivery Nasal Cannula Oxygen Flow Rate 1 06/23/23 10:21 06/23/23 10:30 Temperature Pulse Rate 65 64 Respiratory Rate Blood Pressure 139/71 142/73 H Pulse Oximetry Oxygen Delivery Oxygen Flow Rate Intake/Output Intake/Output: Intake & Output 06/20/23 06/21/23 06/22/23 06/23/23 23:59 23:59 23:59 23:59 Intake Total 670 170 Output Total 800 Balance -130 170 Meds/Results Medications: Active Medications Generic Name Dose Route Start Last Admin Trade Name Freq PRN Reason Stop Dose Admin Acetaminophen 650 mg 06/22/23 15:51 Acetaminophen 325 Mg Tablet PO Q6H PRN
[2023-06-23 14:51] LABS: Glucose Point of Care 138 mg/dl (65-105)
--- NOTE | 2023-06-23 14:55 | PC.NURSE ---
pt returned to room from dialysis
[2023-06-23 17:05] LABS: Glucose Point of Care 227 mg/dl (65-105)
--- NOTE | 2023-06-23 18:26 | WPDANESPN ---
Anes - Prog Note Post-Op Date/Time: 06/23/23 18:26 Cardiovascular status: normal Respiratory status: normal Airway patency: baseline Mental status: baseline Post-Op hydration status: normal Vital Signs: Last Vital Signs Temp 36.1 C L 06/23/23 15:40 Pulse 68 06/23/23 15:40 Resp 16 06/23/23 15:40 BP 143/54 H 06/23/23 15:40 Pulse Ox 94 06/23/23 15:45 O2 Del Method Room Air 06/23/23 15:45 O2 Flow Rate 1 06/23/23 08:30 Pain Score (VAS): 0 I/O: Intake & Output 06/23/23 06/23/23 06/23/23 07:59 15:59 23:59 Intake Total 170 570 Output Total 1000 Balance -830 570 Laboratory Tests 06/23/23 03:51 06/23/23 03:51 06/22/23 06/23/23 06/23/23 19:36 03:51 08:09 WBC 7.9 RBC 4.12 L Hgb 12.6 Hct 40.3 MCV 97.8 MCH 30.6 MCHC 31.3 L RDW 17.9 H Plt Count 148 L MPV 13.0 H Sodium 132 L Potassium 3.6 Chloride 94 L Carbon Dioxide 29 Anion Gap 9 BUN 21 H Creatinine 3.90 H Estim Creat Clear Calc 13 Estimated GFR 11 L Glucose 248 H POC Capillary Glucose 279 H 214 H Calcium 7.6 L Total Bilirubin 1.5 H Direct Bilirubin 0.0 AST 39 H ALT 21 Alkaline Phosphatase 149 H Total Protein 7.0 Albumin 2.9 L Hep Bs Antigen Negative Hep Bs Antibody Positive 06/23/23 06/23/23 14:47 17:02 WBC RBC Hgb Hct MCV MCH MCHC RDW Plt Count MPV Sodium Potassium Chloride Carbon Dioxide Anion Gap BUN Creatinine Estim Creat Clear Calc Estimated GFR Glucose POC Capillary Glucose 138 H 227 H Calcium Total Bilirubin Direct Bilirubin AST ALT Alkaline Phosphatase Total Protein Albumin Hep Bs Antigen Hep Bs Antibody Post-procedural complaints: none Patient Feedback: Patient satisfied with anesthetic care.
[2023-06-23 20:29] LABS: Glucose Point of Care 216 mg/dl (65-105)
[2023-06-24] MEDS: HYDROcodone/acetaminophen (*CRX) 5-325 MG TABLET 1 TAB PO ×4 (03:24→20:32)
[2023-06-24 05:20] LABS: Alanine Aminotransferase 14 U/L (6-35); Albumin Level 3.1 g/dL (3.5-5.1); Alkaline Phosphatase 166 U/L (38-126); Anion Gap 3 mmol/L (4-12); Aspartate Amino Transferase 31 U/L (14-36); Bilirubin,Total 1.7 mg/dL (0.2-1.3); Blood Urea Nitrogen 15 mg/dL (7-17); Calcium 8.6 mg/dL (8.4-10.2); Carbon Dioxide 36 mmol/L (22-30); Chloride 95 mmol/L (98-107); Estimated CRCL calculation 16 ml/min; Estimated Glomerular Filt Rate 15; Glucose 149 mg/dL (65-110); Phosphorus 2.8 mg/dL (2.5-4.5); Potassium 3.4 mmol/L (3.4-5.0); Sodium 134 mmol/L (137-145)
--- NOTE | 2023-06-24 08:14 | WPDPN ---
Progress Note: A&P Assessment and Plan (1) End-stage renal disease (ESRD): Code(s): N18.6 - End stage renal disease Status: Chronic Assessment and Plan: Patient had her usual hemodialysis yesterday. Continue management as per Nephrology. (2) Symptomatic cholelithiasis: Code(s): K80.20 - Calculus of gallbladder without cholecystitis without obstruction Status: Acute Assessment and Plan: Status post laparoscopic cholecystectomy. She is doing pretty well from that surgery in regards to eating and usual soreness at her port sites. However intraoperative cholangiogram showed a 5mm retained common bile duct stone that was not totally obstructive. Her bilirubin has increased to 1.7 from 1.4 yesterday. Will get GI to see patient for possible post cholecystectomy ERCP in stone removal if it is still in the common bile duct. (3) Choledocholithiasis: Code(s): K80.50 - Calculus of bile duct without cholangitis or cholecystitis without obstruction Status: Acute Assessment and Plan: Retained common bile duct stone. It does not appear to be totally obstructive. It may not have passed out the common bile duct yet as her total bilirubin is slowly rising from 1.4 to 1.7. Will consult GI to see the patient. Subjective Date/time seen: 06/24/23 08:14 Interval history: Patient is sleeping when I 1st saw her this morning. She still complains of having some right-sided abdominal pain mostly around her port site incisions. No nausea or vomiting. She tolerated hemodialysis well yesterday. Not scheduled hemodialysis again till Sunday. Repeat liver enzymes today shows slight elevation of her total bilirubin to 1.7 today. It was 1.4 yesterday. Intraoperative cholangiogram showed a retained 5mm common bile duct stone. It was nonobstructive as contrast did reach the duodenum. Exam GI: Other: Abdomen is soft and obese. Expected mild tenderness around the port site incisions to palpation. Objective Data Vital Signs Vital Signs: Vital Signs - 24 hr 06/23/23 08:23 06/23/23 08:31 06/23/23 09:41 Temperature 36.6 C Pulse Rate 68 66 66 Respiratory Rate 16 18 Blood Pressure 136/94 H 147/69 H Pulse Oximetry 100 Oxygen Delivery Oxygen Flow Rate 06/23/23 08:30 06/23/23 10:21 06/23/23 10:30 Temperature Pulse Rate 65 64 Respiratory Rate Blood Pressure 139/71 142/73 H Pulse Oximetry 100 Oxygen Delivery Nasal Cannula Oxygen Flow Rate 1 06/23/23 10:45 06/23/23 11:00 06/23/23 11:15 Temperature Pulse Rate 64 61 64 Respiratory Rate Blood Pressure 137/68 140/65 134/66 Pulse Oximetry Oxygen Delivery Oxygen Flow Rate 06/23/23 11:30 06/23/23 11:45 06/23/23 12:00 Temperature Pulse Rate 68 64 64 Respiratory Rate Blood Pressure 141/77 H 142/62 H 145/60 H Pulse Oximetry Oxygen Delivery Oxygen Flow Rate 06/23/23 12:15 06/23/23 12:30 06/23/23 12:45 Temperature Pulse Rate 64 64 64 Respiratory Rate Blood Pressure 157/72 H 156/74 H 144/71 H Pulse Oximetry Oxygen Delivery Oxygen Flow Rate 06/23/23 13:00 06/23/23 13:15 06/23/23 13:30 Temperature Pulse Rate 64 64 65 Respiratory Rate Blood Pressure 150/75 H 142/76 H 142/69 H Pulse Oximetry Oxygen Delivery Oxygen Flow Rate 06/23/23 13:45 06/23/23 13:55 06/23/23 14:05 Temperature 36.6 C Pulse Rate 66 69 64 Respiratory Rate 18 Blood Pressure 148/66 H 150/66 H 152/67 H Pulse Oximetry Oxygen Delivery Oxygen Flow Rate 06/23/23 15:40 06/23/23 15:45 06/23/23 20:30 Temperature 36.1 C L 36.3 C L Pulse Rate 68 65 Respiratory Rate 16 18 Blood Pressure 143/54 H 128/53 L Pulse Oximetry 94 94 91 Oxygen Delivery Room Air Oxygen Flow Rate 06/23/23 20:59 06/23/23 20:00 Temperature Pulse Rate 72 Respiratory Rate Blood Pressure Pulse Oximetry 91 Oxygen Delivery Room Air Oxygen Flow Rate
[2023-06-24 08:28] VITALS: BP 128/72; PULSE 71; RESP 16; TEMP 36.3; O2SAT 98
[2023-06-24 08:31] VITALS: PULSE 78
[2023-06-24] MEDS: buPROPion HCL SR (12 HR) 150 MG TAB PO (08:31)
[2023-06-24] MEDS: carvediloL 12.5 MG TABLET PO ×2 (08:31→20:32)
[2023-06-24] MEDS: ATORVASTATIN 20 MG TABLET PO (08:31)
[2023-06-24] MEDS: CALCIUM ACETATE 667 MG TABLET PO ×3 (08:31→17:22)
[2023-06-24] MEDS: allopurinoL 100 MG TABLET PO (08:31)
[2023-06-24 08:43] LABS: Glucose Point of Care 144 mg/dl (65-105)
[2023-06-24 12:54] LABS: Glucose Point of Care 169 mg/dl (65-105)
[2023-06-24 13:30] VITALS: BP 120/57; PULSE 66; RESP 20; TEMP 37; O2SAT 98
[2023-06-24] MEDS: MORPHINE SULFATE (*CRX) 4 MG/ML INJ IV PUSH (15:03)
--- NOTE | 2023-06-24 16:04 | PM.PNNEP ---
Progress Note: A&P Assessment and Plan (1) End-stage renal disease (ESRD): Code(s): N18.6 - End stage renal disease Status: Chronic Assessment and Plan: HD done yesterday Volume status looks pretty good. she has no need of oxygen and is actually singing in the room. I asked nurse to get her an incentive spirometer. HD due on sunday. (2) Hypertension: Code(s): I10 - Essential (primary) hypertension Status: Chronic Assessment and Plan: Systolic is running between 120 to 150. Some of this is explained by pain. a little better today Will follow this going forward. She is back on her blood pressure medicines. (3) Anemia: Code(s): D64.9 - Anemia, unspecified Status: Chronic Assessment and Plan: Hemoglobin is above 11. No need for EPO. 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 glycemic control per hospitalists \ (5) Renal osteodystrophy: Code(s): N25.0 - Renal osteodystrophy Status: Acute Assessment and Plan: phos is good (6) Hyponatremia: Code(s): E87.1 - Hypo-osmolality and hyponatremia Status: Chronic Assessment and Plan: Sodium level is low because of water drinking in a dialysis patient. (7) Epigastric pain: Code(s): R10.13 - Epigastric pain Status: Acute Assessment and Plan: Her abdominal discomfort led to the cholecystectomy. This is better except for her mild postoperative pain. Subjective Date/time seen: 06/24/23 16:04 Interval history: alert. feels okay. no sob no cp. she as some belly discomfort. she is talking with surgery Review of Systems Cardiovascular: Cardiovascular: Reports no additional cardiovascular complaints Respiratory: Respiratory: Reports no additional respiratory complaints Gastrointestinal: Gastrointestinal: Reports no additional gastrointestinal complaints Genitourinary: Genitourinary: Reports no additional female genitourinary complaints Exam Narrative: WDWN in NAD skin no rash head ncat lungs clear cor reg no rub abd BS+ nontender and soft ext no edema. Objective Data Vital Signs Vital Signs: Vital Signs - 24 hr 06/23/23 20:30 06/23/23 20:59 06/23/23 20:00 Temperature 97.3 F L Pulse Rate 65 72 Respiratory Rate 18 Blood Pressure 128/53 L Pulse Oximetry 91 91 Oxygen Delivery Room Air 06/24/23 08:28 06/24/23 08:31 06/24/23 08:25 Temperature 97.4 F L Pulse Rate 71 78 Respiratory Rate 16 Blood Pressure 128/72 Pulse Oximetry 98 Oxygen Delivery Room Air 06/24/23 13:30 Temperature 98.6 F Pulse Rate 66 Respiratory Rate 20 Blood Pressure 120/57 L Pulse Oximetry 98 Oxygen Delivery Intake/Output Intake/Output: Intake & Output 06/21/23 06/22/23 06/23/23 06/24/23 23:59 23:59 23:59 23:59 Intake Total 670 740 360 Output Total 800 1000 Balance -130 -260 360 Meds/Results Medications: Active Medications Generic Name Dose Route Start Last Admin Trade Name Freq PRN Reason Stop Dose Admin Acetaminophen 650 mg 06/22/23 15:51 Acetaminophen 325 Mg Tablet PO Q6H PRN Mild Pain (1-3) Or Fever Hydrocodone Bitart/Acetaminophen 1 tab 06/22/23 15:51 06/24/23 13:17 Hydrocodone/Acetaminophen (*Crx) 5-325 Mg Tablet PO 1 tab Q4H PRN Administration Pain Rated 4-6 Hydrocodone Bitart/Acetaminophen 1 tab 06/22/23 15:51 Hydrocodone/Acetaminophen (*Crx) 10-325 Mg Tablet PO Q6H PRN Pain Rated 7-10 Allopurinol 100 mg 06/23/23 08:00 06/24/23 08:31 Allopurinol 100 Mg Tablet PO 100 mg DAILY@0800 MICHELL Administration Atorvastatin Calcium 20 mg 06/23/23 09:00 06/24/23 08:31 Atorvastatin 20 Mg Tablet PO 20 mg
[2023-06-24 17:15] LABS: Glucose Point of Care 181 mg/dl (65-105)
--- NOTE | 2023-06-24 17:27 | PC.NURSE ---
Patient has left upper arm fistula, positive bruit and thrill
--- NOTE | 2023-06-24 17:36 | WPDGICN ---
Assessment and Plan Assessment and plan (1) Choledocholithiasis: Code(s): K80.50 - Calculus of bile duct without cholangitis or cholecystitis without obstruction Status: Acute Assessment and Plan: ercp tomorrow, still ruq pain with elevated bili, also noted stone by IOC talked to family and patient, agreeable to proceed (2) RUQ pain: Code(s): R10.11 - Right upper quadrant pain Status: Acute (3) End-stage renal disease (ESRD): Code(s): N18.6 - End stage renal disease Status: Chronic Assessment and Plan: on dialysis (4) Hypertension: Onset Date: Unknown Qualifiers: Hypertension type: essential hypertension Qualified Code(s): I10 - Essential (primary) hypertension Code(s): I10 - Essential (primary) hypertension Status: Chronic Assessment and Plan: on meds (5) Diabetes mellitus with hyperglycemia, with long-term current use of insulin: Qualifiers: Diabetes mellitus type: type 2 Qualified Code(s): E11.65 - Type 2 diabetes mellitus with hyperglycemia; 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.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 of insulin Code(s): E11.65 - Type 2 diabetes mellitus with hyperglycemia; Z79.4 - shelter (current) use of insulin Status: Acute (6) Elevated LFTs: Code(s): R79.89 - Other specified abnormal findings of blood chemistry Status: Acute GI Consult Note Consult date/time: 06/24/23 17:36 Reason for consult: filling defect in bile duct after IOC and cholecystectomy HPI: Kelley Rodriguez is a 73 year old female with history of DM, ESRD on dialysis, HTN who was originally evaluated in 03/2023 while hospitalized for a possible colovesical fistula and urinary infection by surgery team because had symptomatic cholelithiasis. CT scan showed probable cholelithiasis and a small fat-containing umbilical hernia. Then she presented to another ER on? 06/06/2023 with severe RUQ and right flank pain and finally surgery scheduled lap raf 06/22/2023, IOC found 5 mm stone in bile duct, bili 1.7, still some ruq pain. Denies any other gastric surgeries.? Review of Systems Constitutional: Constitutional: Denies chills Eyes: Eyes: Denies blurry vision ENT: Reports Normal hearing present Cardiovascular: Cardiovascular: Denies chest pain Respiratory: Respiratory: Denies cough Gastrointestinal: Gastrointestinal: Reports abdominal pain Genitourinary: Comments: on dialysis Musculoskeletal: Musculoskeletal: Reports back pain Integumentary/Breasts: Skin/Breast: Denies rash Neurologic: Denies confusion Psychiatric: Psychiatric: Denies behavioral changes [facility] Past Medical History Medical History (Updated 06/24/23 @ 17:42 by Herman Grigsby MD) Anxiety and depression Arthritis Benign thyroid cyst Evaluated by ultrasound a couple of years ago per patient report. Cerebrovascular accident Due to embolic event following a shoulder fracture 2016 with chronic mild left-sided weakness. Chronic venous stasis dermatitis of both lower extremities Contusion of ankle, left Diabetic gastroparesis Diabetic neuropathy Diabetic retinopathy of both eyes End-stage renal disease on hemodialysis Previously on peritoneal dialysis. Gastroesophageal reflux disease Gout Grade II diastolic dysfunction Noted on echo on 07/04/2019. EF 55-60%. Hyperlipidemia Hypertension Infarction of liver (07/07/19) Insulin dependent type 2 diabetes mellitus A1c was 8.9% on 09/08/2020. 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 Morbid obesity Osteomyelitis of right foot Osteoporosis Peripheral arterial disease (Unknown) Retinal detachment RUQ pain Shingles Splenic infarct (07/07/19) Venous stasis dermatitis of both lower extremities Surgical History Surgical History (Reviewed 06/23/23 @ 08:37 by Narciso Dean
[2023-06-24 19:18] VITALS: BP 98/40; PULSE 67; RESP 18; TEMP 36.4; O2SAT 98
[2023-06-24 20:32] VITALS: PULSE 76
[2023-06-24 20:41] LABS: Glucose Point of Care 181 mg/dl (65-105)
[2023-06-25 05:42] LABS: Hemoglobin 14.2 g/dL (12.0-15.0); Immature Platelet Fraction Pct 19.1 % (0.9-11.2); Mean Corpuscular HGB Conc 30.9 g/dl (32-36); Mean Corpuscular Hemoglobin 30.6 pg (26-34); Mean Corpuscular Volume 99.1 fl (80-100); Platelet Count Result 81 k/mm3 (150-375); Red Blood Count 4.64 M/mm3 (4.2-5.4); Red Cell Distribution Width 18.9 % (11.5-14.5)
[2023-06-25 05:45] LABS: White Blood Count 11.7 K/mm3 (4.5-10.0)
[2023-06-25 06:06] LABS: Alanine Aminotransferase 11 U/L (6-35); Albumin Level 3.2 g/dL (3.5-5.1); Alkaline Phosphatase 163 U/L (38-126); Anion Gap 10 mmol/L (4-12); Aspartate Amino Transferase 41 U/L (14-36); Bilirubin,Total 3.1 mg/dL (0.2-1.3); Blood Urea Nitrogen 22 mg/dL (7-17); Calcium 8.6 mg/dL (8.4-10.2); Carbon Dioxide 29 mmol/L (22-30); Chloride 92 mmol/L (98-107); Estimated CRCL calculation 13 ml/min; Estimated Glomerular Filt Rate 11; Glucose 155 mg/dL (65-110); Phosphorus 3.6 mg/dL (2.5-4.5); Potassium 3.9 mmol/L (3.4-5.0); Sodium 131 mmol/L (137-145)
[2023-06-25 08:03] LABS: Glucose Point of Care 128 mg/dl (65-105)
--- NOTE | 2023-06-25 08:24 | PC.NURSE ---
Call received from patient's son, Omid Rodriguez at 0820. Condition update provided. Omid requests that all resuscitation measures be stopped at this time. Olive Cooper RN witnessed/confirmed son's request. Dr Olivera notified of son's request.
--- NOTE | 2023-06-25 08:30 | PDCODEBLUE ---
Code Blue Note Code Blue Note Time Arrived at Code Blue: 0758 Initial Rhythm on Arrival: Asystole Airway Management: Pt intubated during resuscitation Chest Compressions: In process on arrival to bedside Result of Code Blue: Pt Cardiac Rhythm Post Code: Asystole Code Blue Summary: See separate note
--- NOTE | 2023-06-25 08:30 | WPDPROCEDUR ---
Procedures Intubation Intubation Date: 06/25/23 Intubation Time: 08:10 Consent: Intubation was done emergently during cardiac arrest resuscitation A pre-procedural Time-Out was completed immediately before starting the procedure and confirmed: Patient Identification, Site, Procedure, Patient Position and the Availability of Requisite Equipment: No Sedative: none Laryngoscope: fiber optic video scope Assist device used: fiber optic device ET tube size: 7.5 Tube secured depth (cm): 23 Tube secured location: lips Tube placement confirmation: visualized tube passing through cords, equal breath sounds bilaterally and confirmation by capnometry Patient tolerated procedure: well Intubation complications: none
--- NOTE | 2023-06-25 08:31 | PM.EVENT ---
Event Note Event Note Event Note: Responded to code blue on the floor. Initially a rapid response was called but it was later converted to Code Blue. On my arrival CPR was being performed. 33-year-old female with history of diabetes end-stage renal disease on dialysis with last dialysis on Sunday, hypertension who had cholecystectomy on Sunday was found to be unresponsive by morning nurse on her check. Last well known time is not clear as she was given report the patient was doing fine during the night. Patient was bag when and rhythm was asystole. Patient was resuscitated with CPR and was given 9 dose of epinephrine, 2 amps of bicarb and 1 g of calcium chloride. Blood glucose was checked and was adequate. Patient was intubated during the resuscitation. Post intubation patient noticed to be having blood tinged suction. Breath sounds were score suggestive of pulmonary edema. Despite resuscitation efforts for close to 30 minutes patient never regained rhythm or pulse. Patient's family was contacted initially and later they requested to stop further resuscitation efforts. Patient did not had either of the carotid or femoral pulses which was examined by me and 3 other nurses. No heart sounds or respiratory effort was noticed. Patient's face was by than dusky. Patient was pronounced at 8:22 a.m. Total Critical Care Time - 35 minutes except separately billed procedures Due to a high probability of clinically significant, life threatening deterioration, the patient required my highest level of preparedness to intervene emergently and I personally spent this critical care time directly and personally managing the patient. This critical care time included obtaining a history; examining the patient; pulse oximetry; ordering and review of studies; arranging urgent treatment with development of a management plan; evaluation of patient's response to treatment; frequent reassessment; and discussions with other providers. It was exclusive of separately billable procedures and treating other patients and teaching time. Please see Assessment and Plan section and the rest of the note for further information on patient assessment and treatment
--- NOTE | 2023-06-25 08:50 | PC.NURSE ---
06/25/23 07:50am Made rounds this AM. Upon assessment, patient was not responsive with hard sternal rub. Called rapid response. Checked for pulse and for heart beat. No pulse was felt upon assessment. Called code blue. CPR started. See code blue sheet.
--- NOTE | 2023-07-16 15:47 | P.DN_ITS ---
Discharge Summary Date and Time Date of : 06/25/23 Time of : 08:22 Provider Pronounced By: Dr. Irwin Probable Cause of Probable Cause of : Cardiac arrest Summary Hospital Course: This is a 73-year-old woman who presented to the hospital for laparoscopic cholecystectomy with intraoperative cholangiogram on 06/22/2023. Surgery was uncomplicated, but intraoperative cholangiogram showed evidence of a filling defect in the common bile duct suspicious for a common bile duct stone. She was admitted to the hospital for further treatment.Her preoperative bilirubin level was 2.0. The patient had multiple comorbidities including end-stage renal disease, insulin-dependent type 2 diabetes, pulmonary hypertension, and long- term anticoagulation. Her Eliquis was held prior to her surgery. The patient had thrombocytopenia therefore her medical DVT prophylaxis was held. She has a history of below-knee amputation but SCDs were placed on her other leg. Her anticoagulation was held postoperatively well monitoring for possible need for ERCP. Nephrology was consulted and patient underwent hemodialysis on 06/23/2023. She was doing well postoperatively and appeared hemodynamically stable on postop day 1 and day 2. Her pain was controlled and she was tolerating a low-fat diet. Her bilirubin level was rising postoperatively, therefore Gastroenterology was consulted for possible ERCP. ERCP was planned for 06/25/2023. The patient had labs drawn around 4:45 a.m. on 06/25/2023 and was alive without any complaints at this time. 3 hours later she was found unresponsive in her room and a code blue was called. Resuscitation efforts were unsuccessful and patient's family was contacted. They instructed the rapid response team to cease all efforts to CPR. Patient was pronounced at 8:22 a.m. 06/25/2023. Additional Data Confirmation of as documented by pronouncing clinician: Pupillary Reflex, Palpable Pulses, Response to Stimuli, Heart Tones and Breath Sounds Name of Provider Notified: Dr. Irwin and Dr. Gann Time Provider Notified: : Provider Requests Autopsy: No [employer] Liaison Notified: Yes Date [facility] Notified of : 06/25/23 Time [facility] Notified of : 09:06
== END 2023-06-25 08:22 | disposition expired | DRG 417 ==
LOC: ANHSURGERY 14:48 → ANH2MED 14:48
PROVIDERS: Anesthesiology; Internal Medicine Nephrology; Surgery; Admitting Provider Surgery; PCP Internal Medicine; Visit Provider Internal Medicine
PROC: 0FT44ZZ Resection of Gallbladder, Percutaneous Endoscopic Approach (ICD-10-PCS; CPT 47562; principal; 2023-06-22 13:30)
DX: K80.70 Calculus of gallbladder and bile duct without cholecystitis without obstruction (principal); N18.6 End stage renal disease; K91.86 Retained cholelithiasis following cholecystectomy; E87.1 Hypo-osmolality and hyponatremia; I12.0 Hypertensive chronic kidney disease with stage 5 chronic kidney disease or end stage renal disease; I27.20 Pulmonary hypertension, unspecified; I87.2 Venous insufficiency (chronic) (peripheral); E11.22 Type 2 diabetes mellitus with diabetic chronic kidney disease; E11.43 Type 2 diabetes mellitus with diabetic autonomic (poly)neuropathy; K31.84 Gastroparesis; E11.40 Type 2 diabetes mellitus with diabetic neuropathy, unspecified; E11.319 Type 2 diabetes mellitus with unspecified diabetic retinopathy without macular edema; E11.51 Type 2 diabetes mellitus with diabetic peripheral angiopathy without gangrene; E04.1 Nontoxic single thyroid nodule; E78.5 Hyperlipidemia, unspecified; K21.9 Gastro-esophageal reflux disease without esophagitis; D53.1 Other megaloblastic anemias, not elsewhere classified; N25.0 Renal osteodystrophy; M81.0 Age-related osteoporosis without current pathological fracture; M19.90 Unspecified osteoarthritis, unspecified site; M10.9 Gout, unspecified; F41.9 Anxiety disorder, unspecified; F32.A Depression, unspecified; Z99.2 Dependence on renal dialysis; Z86.73 Personal history of transient ischemic attack (TIA), and cerebral infarction without residual deficits; Z79.01 Long term (current) use of anticoagulants; Z79.4 Long term (current) use of insulin; Z89.511 Acquired absence of right leg below knee; Z80.0 Family history of malignant neoplasm of digestive organs
CPT/HCPCS: 36415; 71045; 74300; 80048; 80053; 80076; 82150; 82948; 83690; 84100; 85027; 85055; 85610; 85730; 86706; 87340; 88304; 92950; A9270; G0257; G0378; G0379; J0171; J0330; J0690; J1100; J1170; J1815; J2270; J2405; J2704; J3010; J7030; J7040; J7120; Q9966